=== PATIENT | male | born 1980 | race Caucasian/White ===

== ENCOUNTER 2020-03-16 16:30 | Inpatient (IN) | payer MEDICARE, MEDICAID, SELFPAY ==
[2020-03-16 16:40] VITALS: BP 146/96; PULSE 76; RESP 18; TEMP 36.1; O2SAT 98; BMI 33.9
--- NOTE | 2020-03-16 17:02 | PC.NURSE ---
Pt cooperative with climate change risk assessor. Currently resting in room, no complaints at this time. Pt was seen in the community by crisis, is a voluntary bed search.
[2020-03-16] MEDS: Acetaminophen 325 MG TABLET 650 MG PO (17:27)
[2020-03-16 17:40] LABS: Amphetamine Screen Urine Not Detected (Not Detect); Barbiturates, Urine Not Detected (Not Detect); Benzodiazepines Screen Urine Not Detected (Not Detect); Cannabinoid Screen Urine Not Detected (Not Detect); Cocaine Screen Urine Not Detected (Not Detect); Opiate Screen Urine Not Detected (Not Detect); Phencyclidine Screen Urine Not Detected (Not Detect)
--- NOTE | 2020-03-16 18:27 | PC.NURSE ---
Pt resting in bed at this time. No complaints at this time. Continues to be a voluntary bed search.
[2020-03-16 20:14] LABS: MANUAL DIFF FLAG NO
[2020-03-16 20:16] LABS: Basophils Percent Auto 0.5 % (0-2); Eosinophils Absolute Auto 0.2 X10*3/uL (0.0-0.4); Eosinophils Percent Auto 3.1 % (0-4); Hematocrit 45.6 % (42-52); Hemoglobin 15.5 g/dl (14.0-18.0); Imm Gran Abs Auto 0.02 X10*3/uL (0.00-0.03); Imm Gran Pct Auto 0.3 % (0.0-0.4); Lymphocytes Absolute Auto 1.3 X10*3/uL (1.2-4.9); Lymphocytes Percent Auto 19.4 % (20-40); Mean Corpuscular Hemoglobin 31.6 pg (27.0-33.0); Mean Corpuscular Volume 92.9 fL (80-98); Mean Platelet Volume 9.5 fL (9.4-12.4); Monocytes Absolute Auto 0.5 X10*3/uL (0.1-1.2); Monocytes Percent Auto 7.5 % (2-11); Neutrophils Absolute Auto 4.5 X10*3/uL (2.0-8.3); Neutrophils Percent Auto 69.2 % (45-73); Platelet Count 182 X10*3/uL (160-400); Red Blood Count 4.91 X10*6/uL (4.60-5.80); Red Cell Distribution Width 13.8 % (11.0-16.0); White Blood Count 6.4 X10*3/uL (4.8-10.8)
[2020-03-16 20:34] LABS: Ethanol < 10 mg/dL
[2020-03-16 20:37] LABS: Alanine Aminotransferase 144 U/L (0-40); Albumin Level 4.5 g/dL (3.5-5.0); Alkaline Phosphatase 100 U/L (39-117); Anion Gap 13 (12-20); Aspartate Amino Transferase 124 U/L (5-37); Bilirubin Direct 0.3 mg/dL (0.0-0.5); Bilirubin Total 0.6 mg/dL (0.0-1.0); Blood Urea Nitrogen 14 mg/dL (9-16); Calcium 9.3 mg/dL (8.4-10.2); Carbon Dioxide 28 mmol/L (22-29); Chloride 103 mmol/L (96-108); Creatinine Clr Calc Pharmacy 102.5; Estimated Glomerular Filt Rate > 60; Glucose Random 98 mg/dL (60-115); Potassium 4.2 mmol/l (3.3-5.1); Sodium 140 mmol/L (135-145); Total Protein 7.1 g/dL (6.5-8.0)
--- NOTE | 2020-03-16 20:49 | PC.NURSE ---
Currently asleep. No signs of distress. Respirations nonlabored. Continues to be an inpatient bed search.
[2020-03-16] MEDS: clonazePAM 1 MG TABLET PO (21:39)
[2020-03-16] MEDS: busPIRone HCl 10 MG TABLET PO (21:39)
[2020-03-16] MEDS: lamoTRIgine 100 MG TABLET 200 MG PO (21:39)
[2020-03-16] MEDS: OLANZapine 10 MG TABLET PO (21:40)
[2020-03-16 21:44] VITALS: BP 127/77; PULSE 59
[2020-03-16] MEDS: cloNIDine HCL 0.1 MG TABLET PO (21:44)
--- NOTE | 2020-03-16 22:07 | ED.PSYCH ---
HPI - Psych General Chief Complaint: Psychiatric Symptoms Stated Complaint: crisis Time Seen by Provider: 03/16/20 17:37 Source: patient Mode of arrival: ambulatory Limitations: no limitations History of Present Illness HPI Narrative: Patient is a voluntary admission to the psych unit for suicidal thoughts. Patient admits to suicidal thoughts. Patient was evaluated in the community by [facility]. Patient sent to the ED for medical clearance. Patient denies any auditory / visual hallucinations. MD complaint: suicidal ideation Related Data Home Medications Medication Instructions Recorded Confirmed buspirone [BuSpar] 10 mg PO BID 03/16/20 03/16/20 clonazepam [Klonopin] 1 mg PO BID 03/16/20 03/16/20 clonidine HCl 0.1 mg PO BEDTIME 03/16/20 03/16/20 fluoxetine 60 mg PO QAM 03/16/20 03/16/20 lamotrigine [Lamictal] 200 mg PO BID 03/16/20 03/16/20 nebivolol [Bystolic] 5 mg PO DAILY 03/16/20 03/16/20 nebivolol [Bystolic] 10 mg PO DAILY 03/16/20 03/16/20 olanzapine 5 mg PO DAILY 03/16/20 03/16/20 olanzapine 10 mg PO BEDTIME 03/16/20 03/16/20 Allergies Allergy/AdvReac Type Severity Reaction Status Date / Time mirtazapine [MIRTAZAPINE] Allergy Intermediate UNKNOWN Verified 03/16/20 17:26 sulfamethoxazole Allergy Unknown RASH Verified 03/16/20 17:26 [From BACTRIM] trimethoprim [From BACTRIM] Allergy Unknown RASH Verified 03/16/20 17:26 Review of Systems Review of Systems: Patient admits to suicidal ideation. Patient denies any physical complaints. [facility] Past Medical History Medical History (Updated 03/16/20 @ 22:11 by ISHA Mays) HTN (hypertension) Tachycardia Social History Social History Alcohol intake: unknown Smoking Status: Unknown if ever smoked Use of substances other than those prescribed or required for medical reasons: Unknown Advance Directives: No Advance Directives Information Provided: No Physical Exam Vital Signs: Vital Signs: Vital Signs Temp Pulse Resp BP Pulse Ox 03/16/20 21:44 59 127/77 03/16/20 16:40 97.0 F 76 18 146/96 H 98 Body Mass Index 33.9 Const: General: cooperative, healthy appearing, comfortable, no acute distress and well developed Orientation/consciousness: oriented to person, oriented to place, oriented to time and patient oriented x3 HENMT: Head: Yes normal to inspection Eyes: General: appearance normal, both eyes and all related structures Neck: Neck: Yes normal visual inspection Chest: Chest palpation & inspection: normal inspection of the chest and normal palpation of entire chest wall Resp: Effort & Inspection: normal respiratory effort and able to speak in complete sentences Auscultation: clear to auscultation bilaterally Cardio: Jugular venous distension: no JVD Heart sounds: S1 normal heart sound present and S2 normal heart sound present GI: Inspection: Yes normal to inspection and No abdominal wall ecchymosis Palpation (GI): Soft to palpation, not firm, nontender, no guarding, not rigid and hepatosplenomegaly present Percussion: Yes normal to percussion Auscultation: normal bowel sounds : General: No CVA tenderness and Yes no CVA tenderness Back/Spine/Pelvis: Back: no CVA tenderness, No CVA tenderness and No back tenderness Skin: General skin exam: no rashes or lesions noted Neuro: General: oriented to person, oriented to place, oriented to time, patient oriented x3, gait normal and CN's II-XI intact bilaterally Cranial nerves: Yes CN's II-XII intact bilaterally Extrem: General: Yes normal to inspection Psych: Appearance: grossly normal, well kempt and not disheveled Mental Status: mental status grossly normal Speech and movement: Normal speech and movement present Affect: normal affect Attitude: cooperative Thought content: Suicidality present Course Course Course Narrative: Patient has a bed search for suicidal ideation. Patient will have basic labs drawn Reevaluation(s) Reevaluation #1: patient will be admitted Time: 10:10 MDM - Psych MDM Narrative Medical decision making narrative: Depression Restraints Face to Face Assessment: Face to Face Assessment: Current Situation: After assessment of the patient, a review of the pertinent medical record and a discussion with nursing staff, I feel the patient requires a restrain intervention. Reaction To: [] Medical Condition: [] Behavioral State: [] Continued Need: [] Lab Data Result diagrams: 03/16/20 20:05 03/16/20 20:05 Labs: Lab Results 10/19/20 10/19/20 10/19/20 Range/Units 16:54 20:05 20:05 WBC 6.4 (4.8-10.8) X10*3/uL RBC 4.91 (4.60-5.80) X10*6/uL Hgb 15.5 (14.0-18.0) g/dl Hct 45.6 (42-52) % MCV 92.9 (80-98) fL MCH 31.6 (27.0-33.0) pg MCHC 34.0 (31.0-36.0) g/dl RDW 13.8 (11.0-16.0) % Plt Count 182 (160-400) X10*3/uL MPV 9.5 (9.4-12.4) fL Immature Gran % (Auto) 0.3 (0.0-0.4) % Neut % (Auto) 69.2 (45-73) % Lymph % (Auto) 19.4 L (20-40) % Calhoun % (Auto) 7.5 (2-11) % Eos % (Auto) 3.1 (0-4) % Baso % (Auto) 0.5 (0-2) % Lymph # (Auto) 1.3 (1.2-4.9) X10*3/uL Calhoun # (Auto) 0.5 (0.1-1.2) X10*3/uL Eos # (Auto) 0.2 (0.0-0.4) X10*3/uL Baso # (Auto) 0.0 (0.0-0.2) X10*3/uL Abs Immat Gran (auto) 0.02 (0.00-0.03) X10*3/uL Absolute Neuts (auto) 4.5 (2.0-8.3) X10*3/uL Absolute Nucleated RBC 0.000 (0.0-0.012) X10*3/uL Nucleated RBC % (auto) 0.0 (0.0-0.2) /100WBC Sodium 140 (135-145) mmol/L Potassium 4.2 (3.3-5.1) mmol/l Chloride 103 (96-108) mmol/L Carbon Dioxide 28 (22-29) mmol/L Anion Gap 13 (12-20) BUN 14 (9-16) mg/dL Creatinine 1.27 (0.5-1.4) mg/dL Estim Creat Clear Calc 102.5 Estimated GFR > 60 Random Glucose 98 (60-115) mg/dL Calcium 9.3 (8.4-10.2) mg/dL Total Bilirubin 0.6 (0.0-1.0) mg/dL Direct Bilirubin 0.3 (0.0-0.5) mg/dL AST 124 H (5-37) U/L ALT 144 H (0-40) U/L Alkaline Phosphatase 100 (39-117) U/L Total Protein 7.1 (6.5-8.0) g/dL Albumin 4.5 (3.5-5.0) g/dL Urine Opiates Screen Not Detected (Not Detect) Ur Barbiturates Screen Not Detected (Not Detect) Ur Phencyclidine Scrn Not Detected (Not Detect) Ur Amphetamines Screen Not Detected (Not Detect) U Benzodiazepines Scrn Not Detected (Not Detect) Urine Cocaine Screen Not Detected (Not Detect) U Marijuana (THC) Screen Not Detected (Not Detect) Ethyl Alcohol mg/dL 03/16/20 Range/Units 20:05 WBC (4.8-10.8) X10*3/uL RBC (4.60-5.80) X10*6/uL Hgb (14.0-18.0) g/dl Hct (42-52) % MCV (80-98) fL MCH (27.0-33.0) pg MCHC (31.0-36.0) g/dl RDW (11.0-16.0) % Plt Count (160-400) X10*3/uL MPV (9.4-12.4) fL Immature Gran % (Auto) (0.0-0.4) % Neut % (Auto) (45-73) % Lymph % (Auto) (20-40) % Calhoun % (Auto) (2-11) % Eos % (Auto) (0-4) % Baso % (Auto) (0-2) % Lymph # (Auto) (1.2-4.9) X10*3/uL Calhoun # (Auto) (0.1-1.2) X10*3/uL Eos # (Auto) (0.0-0.4) X10*3/uL Baso # (Auto) (0.0-0.2) X10*3/uL Abs Immat Gran (auto) (0.00-0.03) X10*3/uL Absolute Neuts (auto) (2.0-8.3) X10*3/uL Absolute Nucleated RBC (0.0-0.012) X10*3/uL Nucleated RBC % (auto) (0.0-0.2) /100WBC Sodium (135-145) mmol/L Potassium (3.3-5.1) mmol/l Chloride (96-108) mmol/L Carbon Dioxide (22-29) mmol/L Anion Gap (12-20) BUN (9-16) mg/dL Creatinine (0.5-1.4) mg/dL Estim Creat Clear Calc Estimated GFR Random Glucose (60-115) mg/dL Calcium (8.4-10.2) mg/dL Total Bilirubin (0.0-1.0) mg/dL Direct Bilirubin (0.0-0.5) mg/dL AST (5-37) U/L ALT (0-40) U/L Alkaline Phosphatase (39-117) U/L Total Protein (6.5-8.0) g/dL Albumin (3.5-5.0) g/dL Urine Opiates Screen (Not Detect) Ur Barbiturates Screen (Not Detect) Ur Phencyclidine Scrn (Not Detect) Ur Amphetamines Screen (Not Detect) U Benzodiazepines Scrn (Not Detect) Urine Cocaine Screen (Not Detect) U Marijuana (THC) Screen (Not Detect) Ethyl Alcohol < 10 mg/dL Discharge Plan Discharge Clinical Impression: Depression Prescriptions: No Action clonidine HCl 0.1 mg Tablet 0.1 mg PO BEDTIME RF: 0 lamotrigine [Lamictal] 200 mg Tablet 200 mg PO BID RF: 0 olanzapine 5 mg Tablet 5 mg PO DAILY RF: 0 clonazepam [Klonopin] 1 mg Tablet 1 mg PO BID RF: 0 olanzapine 10 mg Tablet 10 mg PO BEDTIME RF: 0 buspirone [BuSpar] 10 mg Tablet 10 mg PO BID RF: 0 Bystolic 5 mg Tablet 5 mg PO DAILY RF: 0 Bystolic 10 mg Tablet 10 mg PO DAILY RF: 0 fluoxetine 60 mg Tablet 60 mg PO QAM RF: 0
--- NOTE | 2020-03-16 22:09 | PC.NURSE ---
Patient compliant with his HS PO medication, refused to take his prozac by saying he took it in the morning and take his dose in the morning only. Patient calm and pleasant. Mostly isolate in his room, able to express need well, Denied distress. VSS. Will provide safety, maintain safety check as ordered, and monitor the patient.
[2020-03-17 05:42] VITALS: BP 141/94; PULSE 60; RESP 18; TEMP 36.7; O2SAT 98
--- NOTE | 2020-03-17 07:10 | PC.NURSE ---
Pt alert, eating breakfast. pt reports he is 'hanging in there,' affect depressed. Pt reports he normally uses CPAP- pt states that someone can bring from home when admitted inpatient.
[2020-03-17] MEDS: clonazePAM 1 MG TABLET PO ×2 (08:16→20:06)
[2020-03-17] MEDS: OLANZapine 5 MG TABLET PO (08:16)
[2020-03-17] MEDS: lamoTRIgine 100 MG TABLET 200 MG PO ×2 (08:17→20:06)
[2020-03-17] MEDS: busPIRone HCl 10 MG TABLET PO ×2 (08:17→20:06)
[2020-03-17] MEDS: FLUoxetine HCl 20 MG CAPSULE 60 MG PO (08:18)
[2020-03-17 10:22] VITALS: BP 135/85; PULSE 68; RESP 16; TEMP 37; O2SAT 97
[2020-03-17 16:07] VITALS: BP 122/75; PULSE 70; RESP 20; TEMP 36.8; O2SAT 96
--- NOTE | 2020-03-17 19:25 | PC.NURSE ---
No disposition change, no update on bed search status, patient had a good day so far per report, hydrating and eating adequately, denied distress, will continue to monitor.
[2020-03-17 19:29] VITALS: BP 118/78; PULSE 76; RESP 20; TEMP 36.4; O2SAT 96
[2020-03-17] MEDS: OLANZapine 10 MG TABLET PO (20:05)
[2020-03-17 20:06] VITALS: BP 118/78; PULSE 76
[2020-03-17] MEDS: cloNIDine HCL 0.1 MG TABLET PO (20:06)
[2020-03-17 23:35] VITALS: BP 112/58; PULSE 63; RESP 17; TEMP 36.3; O2SAT 95
[2020-03-18 06:28] VITALS: BP 130/70; PULSE 76; RESP 18; TEMP 36.4; O2SAT 98
--- NOTE | 2020-03-18 06:54 | PC.NURSE ---
Report recieved. Pt currently eating breakfast, calm and cooperative. PT denies complaints. Pt is inpatient bedsearch.
[2020-03-18] MEDS: lamoTRIgine 100 MG TABLET 200 MG PO ×2 (09:05→20:47)
[2020-03-18] MEDS: FLUoxetine HCl 20 MG CAPSULE 60 MG PO (09:05)
[2020-03-18] MEDS: OLANZapine 5 MG TABLET PO (09:05)
[2020-03-18] MEDS: clonazePAM 1 MG TABLET PO ×2 (09:05→20:47)
[2020-03-18] MEDS: busPIRone HCl 10 MG TABLET PO ×2 (09:06→20:48)
[2020-03-18 09:11] VITALS: BP 123/77; PULSE 66; RESP 18; TEMP 36.8; O2SAT 97
--- NOTE | 2020-03-18 10:26 | PC.NURSE ---
Per HOANG pt accepted to [facility] pending a negative covid
[2020-03-18 11:35] LABS: SARS COV2 PCR INHOUSE NEGATIVE (Negative)
--- NOTE | 2020-03-18 12:11 | PC.NURSE ---
Nurse to nurse completed with Shanta MARTINEZ from [facility] shanta wong to call back with time for pt to be transferred, bret results faxed
--- NOTE | 2020-03-18 14:49 | PC.NURSE ---
Pt accepted to [facility] for later today, PT aware of change. Pt denies complaints, calm and cooperative.
--- NOTE | 2020-03-18 15:28 | PC.NURSE ---
Pt at baseline, resting quietly in bed, awaiting transfer to .
--- NOTE | 2020-03-18 15:45 | PC.NURSE ---
nurse to nurse completed with janet from [facility].
--- NOTE | 2020-03-18 16:06 | PC.NURSE ---
Pt transferred to by CARE team and security.
--- NOTE | 2020-03-18 16:15 | MHC.CARE ---
CARE team met with this patient in [facility] pod to facilitate transfer/admission to . Patient is being admitted voluntarily and signed CV. Patient has home meds that were verified by pharmacy and given to med nurse.
[2020-03-18 18:00] VITALS: BP 146/79; PULSE 73; RESP 18; TEMP 36.7; O2SAT 97
--- NOTE | 2020-03-18 20:21 | PC.ADMIT ---
this is one of several [facility] admissions for this 39 year old male. legal cv. cooperative to assessment. referred to [facility] by [facility]. collateral information reviewed with patient from n assessment. reports since being in the er he no longer feels suicidal but reports continued feelings of depression and feels that Prozac is no longer helping. + provider relationship does not use street drugs does report alcoholing on a regular basis but stopped drinking ''7 days ago'' denies any w/d s/s. hx hypertension, sleep apnea. has machine with him. will require equipment obs at hs and pt aware.
[2020-03-18 20:48] VITALS: BP 133/82; PULSE 61
[2020-03-18] MEDS: OLANZapine 10 MG TABLET PO (20:48)
[2020-03-18] MEDS: cloNIDine HCL 0.1 MG TABLET PO (20:48)
[2020-03-19 06:20] VITALS: BP 114/64; PULSE 57; RESP 18; TEMP 36.4
[2020-03-19 07:00] VITALS: BMI 34.6
[2020-03-19 08:36] LABS: Alanine Aminotransferase 171 U/L (0-40); Albumin Level 4.8 g/dL (3.5-5.0); Alkaline Phosphatase 100 U/L (39-117); Anion Gap 14 (12-20); Aspartate Amino Transferase 131 U/L (5-37); Bilirubin Total 0.6 mg/dL (0.0-1.0); Blood Urea Nitrogen 13 mg/dL (9-16); Calcium 9.6 mg/dL (8.4-10.2); Carbon Dioxide 29 mmol/L (22-29); Chloride 102 mmol/L (96-108); Cholesterol 266 mg/dL; Creatinine Clr Calc Pharmacy 116.2; Estimated Glomerular Filt Rate > 60; Glucose Fasting 91 mg/dL (60-99); HDL Cholesterol 44 mg/dL; LDL Cholesterol Calculated 189 mg/dl; Potassium 4.7 mmol/l (3.3-5.1); Sodium 140 mmol/L (135-145); Total Protein 7.4 g/dL (6.5-8.0); Triglycerides 165 mg/dL
[2020-03-19 08:45] LABS: Estimated Average Glucose 91 mg/dL; Hemoglobin A1c % 4.8 %
[2020-03-19 08:56] LABS: Free T4 (Free Thyroxine) 1.08 ng/dL (0.71-1.85); Thyroid Stimulating Hormone 2.03 mIU/mL (0.32-4.0)
[2020-03-19] MEDS: OLANZapine 5 MG TABLET PO (08:56)
[2020-03-19] MEDS: FLUoxetine HCl 20 MG CAPSULE 60 MG PO (08:57)
[2020-03-19] MEDS: busPIRone HCl 10 MG TABLET PO ×2 (08:57→20:59)
[2020-03-19] MEDS: lamoTRIgine 100 MG TABLET 200 MG PO ×2 (08:57→20:59)
[2020-03-19] MEDS: clonazePAM 1 MG TABLET PO ×2 (08:57→20:57)
[2020-03-19 18:00] VITALS: BP 143/93; PULSE 64; TEMP 36.6
--- NOTE | 2020-03-19 19:33 | HO.PSYADMNOT ---
HPI Chief Complaint: depression Sources of Information: patient interviewed, chart reviewed and crisis/core team assessment reviewed HPI Narrative: 39 year old man who was admitted to after being referred by [facility] due to an increase in depression and thoughts of self harm. He was evaluated in his home and then medically cleared in the ER. Tahir has been having increased thoughts of self harm, feeling hopeless, helpless and without motivation. He was struggling with anger and irritability. He wished he were . He reports that he had relapsed with alcohol after a more sustained sobriety. He had also had a decrease in zyprexa dose. Other precipitants include that he is thinking about the anniversary of his father's . His mother has some medical issues. Past Psychiatric History: Hospital stays: Last admission to 2013. He had ECT at that time Therapist is Ana Lilia Mcfarlane [facility] Psychiatrist is Damon Velazquez [facility] Medical Evaluation Reviewed: Yes Medically cleared for admission. No acute problems [facility] Medical History HTN (hypertension) Tachycardia Family History: Father committed suicide Social History: Lives with his mother. No children. On disability Substance History: Alcohol - last use one week ago Trauma History: Father's suicide Diagnostics Vital Signs (24Hr): Vital Signs - 24 hr 03/18/20 20:48 03/19/20 06:20 03/19/20 18:00 Temperature 97.6 F 97.9 F Pulse Rate 61 57 64 Respiratory Rate 18 Blood Pressure 133/82 114/64 143/93 H Body Mass Index 34.6 Labs Results: 03/16/20 20:05 03/19/20 07:29 Labs: Laboratory Results - last 48 hr 03/18/20 03/19/20 03/19/20 10:21 07:29 07:29 Sodium 140 Potassium 4.7 Chloride 102 Carbon Dioxide 29 Anion Gap 14 BUN 13 Creatinine 1.12 Estim Creat Clear Calc 116.2 Estimated GFR > 60 Fasting Glucose 91 Estimat Average Glucose 91 Hemoglobin A1c % 4.8 Calcium 9.6 Total Bilirubin 0.6 AST 131 H ALT 171 H Alkaline Phosphatase 100 Total Protein 7.4 Albumin 4.8 Triglycerides 165 Cholesterol 266 LDL Cholesterol, Calc 189 HDL Cholesterol 44 TSH 2.03 Free T4 1.08 Coronavirus (PCR) NEGATIVE Meds/Allergies Meds Home Medications Medication Instructions Recorded Confirmed Type buspirone [BuSpar] 10 mg PO BID 03/16/20 03/16/20 History clonazepam [Klonopin] 1 mg PO BID 03/16/20 03/16/20 History clonidine HCl 0.1 mg PO BEDTIME 03/16/20 03/16/20 History fluoxetine 60 mg PO QAM 03/16/20 03/16/20 History lamotrigine [Lamictal] 200 mg PO BID 03/16/20 03/16/20 History nebivolol [Bystolic] 5 mg PO DAILY 03/16/20 03/16/20 History nebivolol [Bystolic] 10 mg PO DAILY 03/16/20 03/16/20 History olanzapine 5 mg PO DAILY 03/16/20 03/16/20 History olanzapine 10 mg PO BEDTIME 03/16/20 03/16/20 History Allergies Allergies Allergy/AdvReac Type Severity Reaction Status Date / Time mirtazapine [MIRTAZAPINE] Allergy Intermediate UNKNOWN Verified 03/16/20 17:26 sulfamethoxazole Allergy Unknown RASH Verified 03/16/20 17:26 [From BACTRIM] trimethoprim [From BACTRIM] Allergy Unknown RASH Verified 03/16/20 17:26 Mental Status Exam Mental Status Exam Patient Appearance: Well Grooomed Patient Orientation: Person Level of Consciousness: Awake and Alert Patient Behavior: Appropriate, Cooperative and Good Eye Contact Mood Description: Calm, Sad and Nervous Affect Description: Fearful, Anxious, Sad and Nervous Patient Cognition Impaired: No Ability to Follow Directions: Fair Speech Pattern: Clear, Appropriate, Monotone and Soft-Spoken Memory Description: Intact Hallucinations: None Delusions: Not Present Thought Process: Intact Thought Content: positive for Obsessional Thoughts, positive for Circumstantial, positive for Perseveration and positive for Preoccupation Depressive Symptoms: Increased Anxiety, Insomnia, Diff. Making Decisions, Increased Irritability, Loss of Int. in Activity, Feelings of Worthlessness, Feelings of Guilt, Thoughts of /Suicide and Low Self Esteem Judgement: Fair Assessment & Plan Assessment & Plan (1) Alcohol use disorder, severe, in early remission: Status: Acute Code(s): F10.21 - Alcohol dependence, in remission (2) Bipolar 1 disorder, depressed, severe: Status: Acute Code(s): F31.4 - Bipolar disorder, current episode depressed, severe, without psychotic features (3) Obsessive compulsive disorder: Status: Acute Qualifiers: Obsessive-compulsive disorder type: mixed obsessional thoughts and acts Qualified Code(s): F42.2 - Mixed obsessional thoughts and acts Code(s): F42.9 - Obsessive-compulsive disorder, unspecified Assessment and Plan: CV 15 minute checks Psych/dual groups Increase zyprexa increase fluoxetine Education regarding sobriety Collect collateral history ELS 7 days Patient educated on: diagnosis, medication risk/benefits and substance abuse Informed Consent: further education needed Reason for continued inpatient stay Substantial Risk for: harm to self, inability to function and rapid decompensation
[2020-03-19] MEDS: OLANZapine 10 MG TABLET 15 MG PO (20:57)
[2020-03-19 20:59] VITALS: BP 143/93; PULSE 64
[2020-03-19] MEDS: cloNIDine HCL 0.1 MG TABLET PO (20:59)
[2020-03-20 06:18] VITALS: BP 117/62; PULSE 63; RESP 16; TEMP 36.2; O2SAT 97
[2020-03-20] MEDS: FLUoxetine HCl 20 MG CAPSULE 80 MG PO (08:36)
[2020-03-20] MEDS: clonazePAM 1 MG TABLET PO ×2 (08:37→20:28)
[2020-03-20] MEDS: lamoTRIgine 100 MG TABLET 200 MG PO ×2 (08:37→20:29)
[2020-03-20] MEDS: busPIRone HCl 10 MG TABLET PO ×2 (08:38→20:28)
[2020-03-20] MEDS: OLANZapine 5 MG TABLET PO (08:38)
--- NOTE | 2020-03-20 14:36 | HO.PSYCHPN ---
Subjective Subjective Date of Service: 03/20/20 Reason For Visit: depression Subjective Notes: Conditional Voluntary Interim History: Tahir reports that he feels much better with the change in medication. He has no SI He is enjoying interacting with his peers. He denies cravings Medication Compliance: Yes Side effects from medications: No Attending Groups: Yes Review of Systems Acute medical concerns: No Medical Review of Systems: unchanged Mental Status Exam Mental Status Exam Patient Appearance: Well Grooomed Patient Orientation: Person Level of Consciousness: Awake and Alert Patient Behavior: Appropriate, Cooperative and Good Eye Contact Mood Description: Calm and Sad Affect Description: Sad Patient Cognition Impaired: No Ability to Follow Directions: Fair Speech Pattern: Clear, Appropriate, Monotone and Soft-Spoken Memory Description: Intact Hallucinations: None Delusions: Not Present Thought Process: Intact Thought Content: positive for Obsessional Thoughts, positive for Circumstantial, positive for Perseveration, positive for Preoccupation, negative for Suicidal Ideation and negative for Homicidal Ideation Depressive Symptoms: Increased Anxiety, Insomnia, Diff. Making Decisions, Increased Irritability and Loss of Int. in Activity Judgement: Fair Diagnostics Vital Signs (24Hr): Vital Signs - 24 hr 03/19/20 18:00 03/19/20 20:59 03/20/20 06:18 Temperature 97.9 F 97.2 F Pulse Rate 64 64 63 Respiratory Rate 16 Blood Pressure 143/93 H 143/93 H 117/62 Pulse Oximetry 97 Body Mass Index 34.6 Labs Results: 03/16/20 20:05 03/19/20 07:29 Labs: Laboratory Results - last 48 hr 03/19/20 03/19/20 07:29 07:29 Sodium 140 Potassium 4.7 Chloride 102 Carbon Dioxide 29 Anion Gap 14 BUN 13 Creatinine 1.12 Estim Creat Clear Calc 116.2 Estimated GFR > 60 Fasting Glucose 91 Estimat Average Glucose 91 Hemoglobin A1c % 4.8 Calcium 9.6 Total Bilirubin 0.6 AST 131 H ALT 171 H Alkaline Phosphatase 100 Total Protein 7.4 Albumin 4.8 Triglycerides 165 Cholesterol 266 LDL Cholesterol, Calc 189 HDL Cholesterol 44 TSH 2.03 Free T4 1.08 Medications Medications Current Medications Generic Name Dose Route Start Last Admin Trade Name Freq PRN Reason Stop Dose Admin Acetaminophen 650 mg 03/18/20 19:11 Acetaminophen 325 Mg Tablet PO Q6H PRN Headache/Pain Mild Scale (1-3) Al Hydroxide/Mg Hydroxide 30 ml 03/18/20 19:11 Magnesium Hydrox/Alum Hydrox 30 Ml Oral.Susp PO Q6H PRN Heartburn/Nausea Buspirone HCl 10 mg 03/16/20 21:15 03/20/20 08:38 Buspirone Hcl 10 Mg Tablet PO 10 mg BID MARTINEZ Administration Clonazepam 1 mg 03/16/20 21:15 03/20/20 08:37 Clonazepam 1 Mg Tablet PO 1 mg BID MARTINEZ Administration Clonidine HCl 0.1 mg 03/16/20 21:15 03/19/20 20:59 Clonidine Hcl 0.1 Mg Tablet PO 0.1 mg BEDTIME MARTINEZ Administration Protocol Fluoxetine HCl 80 mg 03/20/20 09:00 03/20/20 08:36 Fluoxetine Hcl 20 Mg Capsule PO 80 mg DAILY MARTINEZ Administration Hydroxyzine HCl 25 mg 03/18/20 19:11 Hydroxyzine Hcl 25 Mg Tablet PO BEDTIME PRN Anxiety Lamotrigine 200 mg 03/17/20 09:00 03/20/20 08:37 Lamotrigine 100 Mg Tablet PO 200 mg BID MARTINEZ Administration Magnesium Hydroxide 30 ml 03/18/20 19:11 Milk Of Magnesia 30 Ml Oral.Susp PO DAILY PRN Constipation Nicotine Polacrilex 4 mg 03/18/20 20:19 03/20/20 08:40 Nicotine Polacrilex 4 Mg Lozenge BUCCAL 4 mg Q2H PRN Administration Nicotine Cravings Non-Formulary Medication 15 mg 03/20/20 09:00 03/20/20 08:35 Nebivolol [Bystolic] PO 15 mg DAILY MARTINEZ Administration Olanzapine 5 mg 03/17/20 09:00 03/20/20 08:38 Olanzapine 5 Mg Tablet PO 5 mg DAILY MARTINEZ Administration Olanzapine 15 mg 03/19/20 21:00 03/19/20 20:57 Olanzapine 10 Mg Tablet PO 15 mg BEDTIME MARTINEZ Administration Trazodone HCl 50 mg 03/18/20 19:11 Trazodone Hcl 50 Mg Tablet PO BEDTIME PRN Insomnia Allergies Allergies Allergy/AdvReac Type Severity Reaction Status Date / Time mirtazapine [MIRTAZAPINE] Allergy Intermediate UNKNOWN Verified 03/16/20 17:26 sulfamethoxazole Allergy Unknown RASH Verified 03/16/20 17:26 [From BACTRIM] trimethoprim [From BACTRIM] Allergy Unknown RASH Verified 03/16/20 17:26 Assessment & Plan Assessment & Plan (1) Bipolar 1 disorder, depressed, severe: Status: Acute Code(s): F31.4 - Bipolar disorder, current episode depressed, severe, without psychotic features (2) Obsessive compulsive disorder: Qualifiers: Obsessive-compulsive disorder type: mixed obsessional thoughts and acts Qualified Code(s): F42.2 - Mixed obsessional thoughts and acts Status: Acute Code(s): F42.9 - Obsessive-compulsive disorder, unspecified (3) Alcohol use disorder, severe, in early remission: Status: Acute Code(s): F10.21 - Alcohol dependence, in remission Assessment and Plan: CT current treatment plan without change Greater than 50% of the session was spent on counseling and/or coordination of care Patient educated on: diagnosis, medication risk/benefits and substance abuse Informed Consent: further education needed Reason for contiued inpatient stay Substantial Risk for: inability to function and rapid decompensation
[2020-03-20 18:00] VITALS: BP 120/73; PULSE 61; TEMP 36.4
[2020-03-20] MEDS: OLANZapine 10 MG TABLET 15 MG PO (20:28)
[2020-03-20 20:30] VITALS: BP 120/73; PULSE 61
[2020-03-20] MEDS: cloNIDine HCL 0.1 MG TABLET PO (20:30)
[2020-03-21] MEDS: clonazePAM 1 MG TABLET PO ×2 (08:48→20:26)
[2020-03-21] MEDS: OLANZapine 5 MG TABLET PO (08:48)
[2020-03-21] MEDS: FLUoxetine HCl 20 MG CAPSULE 80 MG PO (08:48)
[2020-03-21] MEDS: lamoTRIgine 100 MG TABLET 200 MG PO ×2 (08:48→20:27)
[2020-03-21] MEDS: busPIRone HCl 10 MG TABLET PO ×2 (08:49→20:28)
[2020-03-21 18:00] VITALS: BP 139/88; PULSE 66; TEMP 36.6
[2020-03-21 20:26] VITALS: BP 139/88; PULSE 66
[2020-03-21] MEDS: cloNIDine HCL 0.1 MG TABLET PO (20:26)
[2020-03-21] MEDS: OLANZapine 10 MG TABLET 15 MG PO (20:28)
--- NOTE | 2020-03-21 21:38 | HO.PSYCHPN ---
Subjective Subjective Reason For Visit: depression Subjective Notes: Conditional Voluntary Interim History: Tahir reports that he feels much better with the change in medication. Denies SI. Denies cravings Medication Compliance: Yes Side effects from medications: No Attending Groups: Yes Review of Systems Acute medical concerns: No Medical Review of Systems: unchanged Review of Systems Review of Systems Patient denies suicidal ideation. Patient denies any physical complaints. Mental Status Exam Mental Status Exam Patient Appearance: Well Grooomed Patient Orientation: Person Level of Consciousness: Awake and Alert Patient Behavior: Appropriate, Cooperative and Good Eye Contact Mood Description: Calm and Sad Affect Description: Sad Patient Cognition Impaired: No Ability to Follow Directions: Fair Speech Pattern: Clear, Appropriate, Monotone and Soft-Spoken Memory Description: Intact Hallucinations: None Delusions: Not Present Thought Process: Intact Thought Content: positive for Obsessional Thoughts, positive for Circumstantial, positive for Perseveration, positive for Preoccupation, negative for Suicidal Ideation and negative for Homicidal Ideation Depressive Symptoms: Increased Anxiety, Insomnia, Diff. Making Decisions, Increased Irritability and Loss of Int. in Activity Judgement: Fair Diagnostics Vital Signs (24Hr): Vital Signs - 24 hr 03/21/20 18:00 03/21/20 20:26 Temperature 97.9 F Pulse Rate 66 66 Blood Pressure 139/88 139/88 Body Mass Index 34.6 Labs Results: 03/16/20 20:05 03/19/20 07:29 Medications Medications Current Medications Generic Name Dose Route Start Last Admin Trade Name Freq PRN Reason Stop Dose Admin Acetaminophen 650 mg 03/18/20 19:11 Acetaminophen 325 Mg Tablet PO Q6H PRN Headache/Pain Mild Scale (1-3) Al Hydroxide/Mg Hydroxide 30 ml 03/18/20 19:11 Magnesium Hydrox/Alum Hydrox 30 Ml Oral.Susp PO Q6H PRN Heartburn/Nausea Buspirone HCl 10 mg 03/16/20 21:15 03/21/20 20:28 Buspirone Hcl 10 Mg Tablet PO 10 mg BID MARTINEZ Administration Clonidine HCl 0.1 mg 03/16/20 21:15 03/21/20 20:26 Clonidine Hcl 0.1 Mg Tablet PO 0.1 mg BEDTIME MARTINEZ Administration Protocol Fluoxetine HCl 80 mg 03/20/20 09:00 03/21/20 08:48 Fluoxetine Hcl 20 Mg Capsule PO 80 mg DAILY MARTINEZ Administration Hydroxyzine HCl 25 mg 03/18/20 19:11 Hydroxyzine Hcl 25 Mg Tablet PO BEDTIME PRN Anxiety Lamotrigine 200 mg 03/17/20 09:00 03/21/20 20:27 Lamotrigine 100 Mg Tablet PO 200 mg BID MARTINEZ Administration Magnesium Hydroxide 30 ml 03/18/20 19:11 Milk Of Magnesia 30 Ml Oral.Susp PO DAILY PRN Constipation Nicotine Polacrilex 4 mg 03/18/20 20:19 03/21/20 13:05 Nicotine Polacrilex 4 Mg Lozenge BUCCAL 4 mg Q2H PRN Administration Nicotine Cravings Non-Formulary Medication 15 mg 03/20/20 09:00 03/21/20 08:47 Nebivolol [Bystolic] PO 15 mg DAILY MARTINEZ Administration Olanzapine 5 mg 03/17/20 09:00 03/21/20 08:48 Olanzapine 5 Mg Tablet PO 5 mg DAILY MARTINEZ Administration Olanzapine 15 mg 03/19/20 21:00 03/21/20 20:28 Olanzapine 10 Mg Tablet PO 15 mg BEDTIME MARTINEZ Administration Trazodone HCl 50 mg 03/18/20 19:11 Trazodone Hcl 50 Mg Tablet PO BEDTIME PRN Insomnia Allergies Allergies Allergy/AdvReac Type Severity Reaction Status Date / Time mirtazapine [MIRTAZAPINE] Allergy Intermediate UNKNOWN Verified 03/16/20 17:26 sulfamethoxazole Allergy Unknown RASH Verified 03/16/20 17:26 [From BACTRIM] trimethoprim [From BACTRIM] Allergy Unknown RASH Verified 03/16/20 17:26 Assessment & Plan Assessment & Plan (1) Bipolar 1 disorder, depressed, severe: Status: Acute Code(s): F31.4 - Bipolar disorder, current episode depressed, severe, without psychotic features (2) Obsessive compulsive disorder: Qualifiers: Obsessive-compulsive disorder type: mixed obsessional thoughts and acts Qualified Code(s): F42.2 - Mixed obsessional thoughts and acts Status: Acute Code(s): F42.9 - Obsessive-compulsive disorder, unspecified (3) Alcohol use disorder, severe, in early remission: Status: Acute Code(s): F10.21 - Alcohol dependence, in remission (4) Depression: Qualifiers: Depression Type: unspecified Qualified Code(s): F32.9 - Major depressive disorder, single episode, unspecified Status: Acute Code(s): F32.9 - Major depressive disorder, single episode, unspecified Assessment and Plan: responding well to current treatment continue with treatment plan Greater than 50% of the session was spent on counseling and/or coordination of care Patient educated on: diagnosis, medication risk/benefits and substance abuse Informed Consent: further education needed Reason for contiued inpatient stay Substantial Risk for: inability to function and rapid decompensation Greater than 50% of the session was spent on counseling and/or coordination of care
[2020-03-22 07:33] VITALS: BP 118/62; PULSE 71; TEMP 35.4
[2020-03-22] MEDS: OLANZapine 5 MG TABLET PO (08:54)
[2020-03-22] MEDS: lamoTRIgine 100 MG TABLET 200 MG PO ×2 (08:54→19:54)
[2020-03-22] MEDS: busPIRone HCl 10 MG TABLET PO ×2 (08:54→19:55)
[2020-03-22] MEDS: FLUoxetine HCl 20 MG CAPSULE 80 MG PO (08:55)
--- NOTE | 2020-03-22 10:56 | P.PNPSI_ITS ---
Subjective Subjective Reason For Visit: depression Subjective Notes: Conditional Voluntary Interim History: patient reporting he is doing well with the change in medication. Denies SI. Denies cravings He reports he would like to be discharged Medication Compliance: Yes Side effects from medications: No Attending Groups: Yes Review of Systems Acute medical concerns: No Medical Review of Systems: unchanged Review of Systems Review of Systems Patient denies suicidal ideation. Patient denies any physical complaints. Mental Status Exam Mental Status Exam Patient Appearance: Well Grooomed Patient Orientation: Person Level of Consciousness: Awake and Alert Patient Behavior: Appropriate, Cooperative and Good Eye Contact Mood Description: Calm and Sad Affect Description: Sad Patient Cognition Impaired: No Ability to Follow Directions: Fair Speech Pattern: Clear, Appropriate, Monotone and Soft-Spoken Memory Description: Intact Hallucinations: None Delusions: Not Present Thought Process: Intact Thought Content: positive for Obsessional Thoughts, positive for Circumstantial, positive for Perseveration, positive for Preoccupation, negative for Suicidal Ideation and negative for Homicidal Ideation Depressive Symptoms: Increased Anxiety, Insomnia, Diff. Making Decisions, Increased Irritability and Loss of Int. in Activity Judgement: Fair Diagnostics Vital Signs (24Hr): Vital Signs - 24 hr 03/21/20 18:00 03/21/20 20:26 03/22/20 07:33 Temperature 97.9 F 95.8 F L Pulse Rate 66 66 71 Blood Pressure 139/88 139/88 118/62 Body Mass Index 34.6 Labs Results: 03/16/20 20:05 03/19/20 07:29 Medications Medications Current Medications Generic Name Dose Route Start Last Admin Trade Name Freq PRN Reason Stop Dose Admin Acetaminophen 650 mg 03/18/20 19:11 Acetaminophen 325 Mg Tablet PO Q6H PRN Headache/Pain Mild Scale (1-3) Al Hydroxide/Mg Hydroxide 30 ml 03/18/20 19:11 Magnesium Hydrox/Alum Hydrox 30 Ml Oral.Susp PO Q6H PRN Heartburn/Nausea Buspirone HCl 10 mg 03/16/20 21:15 03/22/20 08:54 Buspirone Hcl 10 Mg Tablet PO 10 mg BID MARTINEZ Administration Clonidine HCl 0.1 mg 03/16/20 21:15 03/21/20 20:26 Clonidine Hcl 0.1 Mg Tablet PO 0.1 mg BEDTIME MARTINEZ Administration Protocol Fluoxetine HCl 80 mg 03/20/20 09:00 03/22/20 08:55 Fluoxetine Hcl 20 Mg Capsule PO 80 mg DAILY MARTINEZ Administration Hydroxyzine HCl 25 mg 03/18/20 19:11 Hydroxyzine Hcl 25 Mg Tablet PO BEDTIME PRN Anxiety Lamotrigine 200 mg 03/17/20 09:00 03/22/20 08:54 Lamotrigine 100 Mg Tablet PO 200 mg BID MARTINEZ Administration Magnesium Hydroxide 30 ml 03/18/20 19:11 Milk Of Magnesia 30 Ml Oral.Susp PO DAILY PRN Constipation Nicotine Polacrilex 4 mg 03/18/20 20:19 03/22/20 10:00 Nicotine Polacrilex 4 Mg Lozenge BUCCAL 4 mg Q2H PRN Administration Nicotine Cravings Non-Formulary Medication 15 mg 03/20/20 09:00 03/22/20 08:55 Nebivolol [Bystolic] PO 15 mg DAILY MARTINEZ Administration Olanzapine 5 mg 03/17/20 09:00 03/22/20 08:54 Olanzapine 5 Mg Tablet PO 5 mg DAILY MARTINEZ Administration Olanzapine 15 mg 03/19/20 21:00 03/21/20 20:28 Olanzapine 10 Mg Tablet PO 15 mg BEDTIME MARTINEZ Administration Trazodone HCl 50 mg 03/18/20 19:11 Trazodone Hcl 50 Mg Tablet PO BEDTIME PRN Insomnia Allergies Allergies Allergy/AdvReac Type Severity Reaction Status Date / Time mirtazapine [MIRTAZAPINE] Allergy Intermediate UNKNOWN Verified 03/16/20 17:26 sulfamethoxazole Allergy Unknown RASH Verified 03/16/20 17:26 [From BACTRIM] trimethoprim [From BACTRIM] Allergy Unknown RASH Verified 03/16/20 17:26 Assessment & Plan Assessment & Plan (1) Bipolar 1 disorder, depressed, severe: Status: Acute Code(s): F31.4 - Bipolar disorder, current episode depressed, severe, without psychotic features (2) Obsessive compulsive disorder: Qualifiers: Obsessive-compulsive disorder type: mixed obsessional thoughts and acts Qualified Code(s): F42.2 - Mixed obsessional thoughts and acts Status: Acute Code(s): F42.9 - Obsessive-compulsive disorder, unspecified (3) Alcohol use disorder, severe, in early remission: Status: Acute Code(s): F10.21 - Alcohol dependence, in remission (4) Depression: Qualifiers: Depression Type: unspecified Qualified Code(s): F32.9 - Major depressive disorder, single episode, unspecified Status: Acute Code(s): F32.9 - Major depressive disorder, single episode, unspecified Assessment and Plan: Continue current medication without change Greater than 50% of the session was spent on counseling and/or coordination of care Patient educated on: diagnosis, medication risk/benefits and substance abuse Informed Consent: further education needed Reason for continued inpatient stay: Substantial Risk for: inability to function and rapid decompensation Greater than 50% of the session was spent on counseling and/or coordination of c are
[2020-03-22] MEDS: Acetaminophen 325 MG TABLET 650 MG PO ×2 (11:24→19:14)
[2020-03-22 18:00] VITALS: BP 132/78; PULSE 66; TEMP 36.3
[2020-03-22 19:55] VITALS: BP 132/78; PULSE 66
[2020-03-22] MEDS: cloNIDine HCL 0.1 MG TABLET PO (19:55)
[2020-03-22] MEDS: OLANZapine 10 MG TABLET 15 MG PO (19:56)
[2020-03-22] MEDS: clonazePAM 1 MG TABLET PO (20:19)
[2020-03-23 05:40] VITALS: BP 128/74; PULSE 59; RESP 18; TEMP 36.4
[2020-03-23] MEDS: FLUoxetine HCl 20 MG CAPSULE 80 MG PO (08:41)
[2020-03-23] MEDS: clonazePAM 1 MG TABLET PO ×2 (08:42→21:09)
[2020-03-23] MEDS: OLANZapine 5 MG TABLET PO (08:42)
[2020-03-23] MEDS: lamoTRIgine 100 MG TABLET 200 MG PO ×2 (08:42→21:07)
[2020-03-23] MEDS: busPIRone HCl 10 MG TABLET PO ×2 (08:42→21:06)
--- NOTE | 2020-03-23 09:36 | P.PNPSI_ITS ---
Subjective Subjective Date of Service: 03/23/20 Reason For Visit: depression Subjective Notes: Conditional Voluntary Interim History: Patient reporting he is doing well with the change in medication. He is interactive with his peers and he is not ruminating. Denies SI. Denies cravings He reports he would like to be discharged He agreed to DC tomorrow. Medication Compliance: Yes Side effects from medications: No Attending Groups: Yes Review of Systems Acute medical concerns: No Medical Review of Systems: unchanged Mental Status Exam Mental Status Exam Patient Appearance: Well Grooomed Patient Orientation: Person Level of Consciousness: Awake and Alert Patient Behavior: Appropriate, Cooperative and Good Eye Contact Mood Description: Calm and Sad Affect Description: Sad Patient Cognition Impaired: No Ability to Follow Directions: Fair Speech Pattern: Clear, Appropriate, Monotone and Soft-Spoken Memory Description: Intact Hallucinations: None Delusions: Not Present Thought Process: Intact Thought Content: positive for Obsessional Thoughts, positive for Circumstantial, positive for Perseveration, positive for Preoccupation, negative for Suicidal Ideation and negative for Homicidal Ideation Depressive Symptoms: Increased Anxiety, Insomnia, Diff. Making Decisions, Increased Irritability and Loss of Int. in Activity Judgement: Fair Diagnostics Vital Signs (24Hr): Vital Signs - 24 hr 03/22/20 18:00 03/22/20 19:55 03/23/20 05:40 Temperature 97.4 F 97.5 F Pulse Rate 66 66 59 Respiratory Rate 18 Blood Pressure 132/78 132/78 128/74 Body Mass Index 34.6 Labs Results: 03/16/20 20:05 03/19/20 07:29 Medications Medications Current Medications Generic Name Dose Route Start Last Admin Trade Name Angelq PRN Reason Stop Dose Admin Acetaminophen 650 mg 03/18/20 19:11 03/22/20 19:14 Acetaminophen 325 Mg Tablet PO 650 mg Q6H PRN Administration Headache/Pain Mild Scale (1-3) Al Hydroxide/Mg Hydroxide 30 ml 03/18/20 19:11 Magnesium Hydrox/Alum Hydrox 30 Ml Oral.Susp PO Q6H PRN Heartburn/Nausea Buspirone HCl 10 mg 03/16/20 21:15 03/23/20 08:42 Buspirone Hcl 10 Mg Tablet PO 10 mg BID MARTINEZ Administration Clonazepam 1 mg 03/22/20 21:00 03/23/20 08:42 Clonazepam 1 Mg Tablet PO 1 mg BID MARTINEZ Administration Clonidine HCl 0.1 mg 03/16/20 21:15 03/22/20 19:55 Clonidine Hcl 0.1 Mg Tablet PO 0.1 mg BEDTIME MARTINEZ Administration Protocol Fluoxetine HCl 80 mg 03/20/20 09:00 03/23/20 08:41 Fluoxetine Hcl 20 Mg Capsule PO 80 mg DAILY MARTINEZ Administration Hydroxyzine HCl 25 mg 03/18/20 19:11 Hydroxyzine Hcl 25 Mg Tablet PO BEDTIME PRN Anxiety Lamotrigine 200 mg 03/17/20 09:00 03/23/20 08:42 Lamotrigine 100 Mg Tablet PO 200 mg BID MARTINEZ Administration Magnesium Hydroxide 30 ml 03/18/20 19:11 Milk Of Magnesia 30 Ml Oral.Susp PO DAILY PRN Constipation Nicotine Polacrilex 4 mg 03/18/20 20:19 03/22/20 14:00 Nicotine Polacrilex 4 Mg Lozenge BUCCAL 4 mg Q2H PRN Administration Nicotine Cravings Non-Formulary Medication 15 mg 03/20/20 09:00 03/23/20 08:41 Nebivolol [Bystolic] PO 15 mg DAILY MARTINEZ Administration Olanzapine 5 mg 03/17/20 09:00 03/23/20 08:42 Olanzapine 5 Mg Tablet PO 5 mg DAILY MARTINEZ Administration Olanzapine 15 mg 03/19/20 21:00 03/22/20 19:56 Olanzapine 10 Mg Tablet PO 15 mg BEDTIME MARTINEZ Administration Trazodone HCl 50 mg 03/18/20 19:11 Trazodone Hcl 50 Mg Tablet PO BEDTIME PRN Insomnia Allergies Allergies Allergy/AdvReac Type Severity Reaction Status Date / Time mirtazapine [MIRTAZAPINE] Allergy Intermediate UNKNOWN Verified 03/16/20 17:26 sulfamethoxazole Allergy Unknown RASH Verified 03/16/20 17:26 [From BACTRIM] trimethoprim [From BACTRIM] Allergy Unknown RASH Verified 03/16/20 17:26 Assessment & Plan Assessment & Plan (1) Bipolar 1 disorder, depressed, severe: Status: Acute Code(s): F31.4 - Bipolar disorder, current episode depressed, severe, without psychotic f eatures (2) Obsessive compulsive disorder: Qualifiers: Obsessive-compulsive disorder type: mixed obsessional thoughts and acts Qualified Code(s): F42.2 - Mixed obsessional thoughts and acts Status: Acute Code(s): F42.9 - Obsessive-compulsive disorder, unspecified (3) Alcohol use disorder, severe, in early remission: Status: Acute Code(s): F10.21 - Alcohol dependence, in remission Assessment and Plan: CT current plan DC in am Greater than 50% of the session was spent on counseling and/or coordination of care Patient educated on: diagnosis and medication risk/benefits Reason for contiued inpatient stay Substantial Risk for: rapid decompensation
[2020-03-23] MEDS: Acetaminophen 325 MG TABLET 650 MG PO ×2 (11:17→18:38)
[2020-03-23 16:05] VITALS: BP 139/80; PULSE 63; TEMP 36.6
[2020-03-23] MEDS: OLANZapine 10 MG TABLET 15 MG PO (21:05)
[2020-03-23 21:08] VITALS: BP 139/87; PULSE 60
[2020-03-23] MEDS: cloNIDine HCL 0.1 MG TABLET PO (21:08)
--- NOTE | 2020-03-24 05:16 | HO.PSYCHPN ---
Subjective Subjective Date of Service: 03/24/20 Reason For Visit: depression Subjective Notes: Conditional Voluntary Interim History: Ready for DC. See DC summary by Dr AVILA Diagnostics Vital Signs (24Hr): Vital Signs - 24 hr 03/23/20 05:40 03/23/20 16:05 03/23/20 21:08 Temperature 97.5 F 97.9 F Pulse Rate 59 63 60 Respiratory Rate 18 Blood Pressure 128/74 139/80 139/87 Body Mass Index 34.6 Labs Results: 03/16/20 20:05 03/19/20 07:29 Medications Medications Current Medications Generic Name Dose Route Start Last Admin Trade Name Freq PRN Reason Stop Dose Admin Acetaminophen 650 mg 03/18/20 19:11 03/23/20 18:38 Acetaminophen 325 Mg Tablet PO 650 mg Q6H PRN Administration Headache/Pain Mild Scale (1-3) Al Hydroxide/Mg Hydroxide 30 ml 03/18/20 19:11 Magnesium Hydrox/Alum Hydrox 30 Ml Oral.Susp PO Q6H PRN Heartburn/Nausea Buspirone HCl 10 mg 03/16/20 21:15 03/23/20 21:06 Buspirone Hcl 10 Mg Tablet PO 10 mg BID MARTINEZ Administration Clonazepam 1 mg 03/22/20 21:00 03/23/20 21:09 Clonazepam 1 Mg Tablet PO 1 mg BID MARTINEZ Administration Clonidine HCl 0.1 mg 03/16/20 21:15 03/23/20 21:08 Clonidine Hcl 0.1 Mg Tablet PO 0.1 mg BEDTIME MARTINEZ Administration Protocol Fluoxetine HCl 80 mg 03/20/20 09:00 03/23/20 08:41 Fluoxetine Hcl 20 Mg Capsule PO 80 mg DAILY MARTINEZ Administration Hydroxyzine HCl 25 mg 03/18/20 19:11 Hydroxyzine Hcl 25 Mg Tablet PO BEDTIME PRN Anxiety Lamotrigine 200 mg 03/17/20 09:00 03/23/20 21:07 Lamotrigine 100 Mg Tablet PO 200 mg BID MARTINEZ Administration Magnesium Hydroxide 30 ml 03/18/20 19:11 Milk Of Magnesia 30 Ml Oral.Susp PO DAILY PRN Constipation Nicotine Polacrilex 4 mg 03/18/20 20:19 03/23/20 14:37 Nicotine Polacrilex 4 Mg Lozenge BUCCAL 4 mg Q2H PRN Administration Nicotine Cravings Non-Formulary Medication 15 mg 03/20/20 09:00 03/23/20 08:41 Nebivolol [Bystolic] PO 15 mg DAILY MARTINEZ Administration Olanzapine 5 mg 03/17/20 09:00 03/23/20 08:42 Olanzapine 5 Mg Tablet PO 5 mg DAILY MARTINEZ Administration Olanzapine 15 mg 03/19/20 21:00 03/23/20 21:05 Olanzapine 10 Mg Tablet PO 15 mg BEDTIME MARTINEZ Administration Trazodone HCl 50 mg 03/18/20 19:11 Trazodone Hcl 50 Mg Tablet PO BEDTIME PRN Insomnia Allergies Allergies Allergy/AdvReac Type Severity Reaction Status Date / Time mirtazapine [MIRTAZAPINE] Allergy Intermediate UNKNOWN Verified 03/16/20 17:26 sulfamethoxazole Allergy Unknown RASH Verified 03/16/20 17:26 [From BACTRIM] trimethoprim [From BACTRIM] Allergy Unknown RASH Verified 03/16/20 17:26 Assessment & Plan Greater than 50% of the session was spent on counseling and/or coordination of care
[2020-03-24 06:28] VITALS: BP 127/58; PULSE 61; RESP 16; TEMP 36.2; O2SAT 98
[2020-03-24] MEDS: FLUoxetine HCl 20 MG CAPSULE 80 MG PO (08:42)
[2020-03-24] MEDS: OLANZapine 5 MG TABLET PO (08:43)
[2020-03-24] MEDS: clonazePAM 1 MG TABLET PO (08:43)
[2020-03-24] MEDS: lamoTRIgine 100 MG TABLET 200 MG PO (08:43)
[2020-03-24] MEDS: busPIRone HCl 10 MG TABLET PO (08:43)
--- NOTE | 2020-03-24 20:22 | PM.PSYDC ---
DS: Providers Provider Date of admission: 03/18/20 15:26 Primary care physician: Quan Baker MD Attending physician on admission: Jenni Anglin Attending physician on discharge: Murali Celis Anticipated date of discharge: 03/24/20 DS: Diagnosis Discharge Diagnosis (1) Bipolar 1 disorder, depressed, severe: Status: Acute (2) Obsessive compulsive disorder: Status: Acute (3) Alcohol use disorder, severe, in early remission: Status: Acute Discharge Plan Discharge Patient Disposition: Home, Self-Care Referrals: Ana Lilia Mcfarlane, therapist [Other] - 03/25/20 10:00 am Quan Baker MD [Primary Care Provider] - 03/30/20 9:35 am (IT'S A TELEVISIT VIA PHONE.) Damon Velazquez MD [Physician] - 03/30/20 8:30 am Discharge Medications: New trazodone 50 mg Tablet 50 mg PO BEDTIME PRN (Reason: Insomnia) Qty: 30 RF: 0 olanzapine 10 mg Tablet 15 mg PO BEDTIME Qty: 30 RF: 0 fluoxetine 20 mg Capsule 80 mg PO DAILY Qty: 120 RF: 0 Continued clonidine HCl 0.1 mg Tablet 0.1 mg PO BEDTIME Qty: 30 RF: 0 lamotrigine [Lamictal] 200 mg Tablet 200 mg PO BID Qty: 60 RF: 0 olanzapine 5 mg Tablet 5 mg PO DAILY Qty: 30 RF: 0 clonazepam [Klonopin] 1 mg Tablet 1 mg PO BID Qty: 60 RF: 0 buspirone 10 mg Tablet 10 mg PO BID Qty: 60 RF: 0 Bystolic 5 mg Tablet 5 mg PO DAILY Qty: 30 RF: 0 Bystolic 10 mg Tablet 10 mg PO DAILY Qty: 30 RF: 0 Discontinued olanzapine 10 mg Tablet 10 mg PO BEDTIME RF: 0 fluoxetine 60 mg Tablet 60 mg PO QAM RF: 0 Discharge Orders: Discharge Order (Routine); Ordered 03/24/20 Ordered By: Murali Celis Diet: advance to your usual diet Activity on Discharge: As tolerated Stand Alone Forms: Community Support Discharge Date/Time: 03/24/20 16:00 Visit Report Forms: Patient Portal Discharge page Care Plan Goals: Improve mood Stay sober Health Concerns: Bipolar disorder Alcohol abuse Plan of Treatment: Stay on your medications Don't drink Follow up with your providers Mental Status Exam Mental Status Exam Patient Appearance: Well Grooomed Patient Orientation: Person Level of Consciousness: Awake and Alert Patient Behavior: Appropriate, Cooperative and Good Eye Contact Mood Description: Calm and Sad Affect Description: Sad Patient Cognition Impaired: No Ability to Follow Directions: Fair Speech Pattern: Clear, Appropriate, Monotone and Soft-Spoken Memory Description: Intact Hallucinations: None Delusions: Not Present Thought Process: Intact Thought Content: positive for Obsessional Thoughts, positive for Circumstantial, positive for Perseveration, positive for Preoccupation, negative for Suicidal Ideation and negative for Homicidal Ideation Depressive Symptoms: Increased Anxiety Judgement: Fair Data Data Completed and Pending Completed studies during hospitalization [Text1]: 03/18/20 03/19/20 03/19/20 10:21 07:29 07:29 Sodium 140 Potassium 4.7 Chloride 102 Carbon Dioxide 29 Anion Gap 14 BUN 13 Creatinine 1.12 Estim Creat Clear Calc 116.2 Estimated GFR > 60 Fasting Glucose 91 Estimat Average Glucose 91 Hemoglobin A1c % 4.8 Calcium 9.6 Total Bilirubin 0.6 AST 131 H ALT 171 H Alkaline Phosphatase 100 Total Protein 7.4 Albumin 4.8 Triglycerides 165 Cholesterol 266 LDL Cholesterol, Calc 189 HDL Cholesterol 44 TSH 2.03 Free T4 1.08 Coronavirus (PCR) NEGATIVE DS: Summary Hospital Course Hospital Course: 39 year old man who was admitted to after being referred by [facility] due to an increase in depression and thoughts of self harm. He was evaluated in his home and then medically cleared in the ER. Tahir has been having increased thoughts of self harm, feeling hopeless, helpless and without motivation. He was struggling with anger and irritability. He wished he were . He reports that he had relapsed with alcohol after a more sustained sobriety. He had also had a decrease in zyprexa dose. Other precipitants include that he is thinking about the anniversary of his father's . His mother has some medical issues. Past Psychiatric History: Hospital stays: Last admission to 2013. He had ECT at that time Therapist is HOANG Pang Psychiatrist is HOANG Sanchez Medical Evaluation Reviewed: Yes Medically cleared for admission. No acute problems [facility] Medical History HTN (hypertension) Tachycardia Family History: Father committed suicide Social History: Lives with his mother. No children. On disability Substance History: Alcohol - last use one week ago Trauma History: Father's suicide Hospital course: Tahir was admitted on a CV. He had been medically cleared in the ER. He was comfortable on arrival to the floor and he engaged with peers and staff. The dose of zyprexa that he was on was increased, as was the dose of prozac. He rapidly recompensated with the support of staff and of peers. He was remorseful about his alcohol use. He decided he would return to 12 step meetings and he was engaged in learning about sobriety. He was able to reflect that he felt much better even after a few days of not drinking. By the time of discharge he was bright and happy with no SI. Time Spent with Patient Time attestation: Total time spent providing and/or coordinating discharge services:
== END 2020-03-24 16:00 | disposition home or self-care (01) | DRG 885 ==
LOC: HO.ED 03-18 16:27 → HO.PM5 03-18 16:40
PROVIDERS: Physician Assistant; Admitting Provider Psychiatry & Neurology Psychiatry; Emergency Provider Emergency Medicine; PCP Internal Medicine; Visit Provider Psychiatry & Neurology Psychiatry
DX: F31.4 Bipolar disorder, current episode depressed, severe, without psychotic features (principal); R45.851 Suicidal ideations; F10.21 Alcohol dependence, in remission; I10 Essential (primary) hypertension; F17.210 Nicotine dependence, cigarettes, uncomplicated; F42.9 Obsessive-compulsive disorder, unspecified; Z71.6 Tobacco abuse counseling; Z20.828 Contact with and (suspected) exposure to other viral communicable diseases; Z88.2 Allergy status to sulfonamides; Z79.899 Other long term (current) drug therapy
CPT/HCPCS: 36415; 80053; 80061; 80076; 80307; 80320; 82248; 83036; 84439; 84443; 85025; 87635; 99232; 99285

== ENCOUNTER 2020-04-10 17:17 | Emergency (ER) | payer MEDICARE, MEDICAID, SELFPAY ==
[2020-04-10 17:38] VITALS: BP 148/68; PULSE 72; RESP 18; TEMP 35.7; O2SAT 96; BMI 33.9
--- NOTE | 2020-04-10 17:47 | PC.NURSE ---
PT CHANGED OVER INTO HOSPITAL ATTIRE AND SECURED INTO THE POD LOCKERS
--- NOTE | 2020-04-10 18:00 | XR_ITS ---
EXAMINATION: Left thumb CLINICAL INFORMATION: Laceration. COMPARISON: None TECHNIQUE: 3 views of the left thumb. FINDINGS: No air in the soft tissue. No radiopaque foreign body. Bone and joint are normal. There is no fracture or dislocation. XR/XR finger LT min 2V IMPRESSION: No acute abnormality left thumb.
[2020-04-10] MEDS: Lidocaine HCl 2 % MPF 5 ML VIAL 10 ML SUBCUT (18:50)
--- NOTE | 2020-04-10 18:51 | PC.NURSE ---
thumb sutured by account administrator, report given to pod
--- NOTE | 2020-04-10 19:09 | PC.NURSE ---
PT was just transferred to the pod during shift changes. PT came in calm and cooperative. Resting quietly in his room.
[2020-04-10 19:30] LABS: Basophils Percent Auto 0.5 % (0-2); Eosinophils Absolute Auto 0.4 X10*3/uL (0.0-0.4); Eosinophils Percent Auto 5.3 % (0-4); Hematocrit 47.4 % (42-52); Hemoglobin 16.5 g/dl (14.0-18.0); Imm Gran Abs Auto 0.01 X10*3/uL (0.00-0.03); Imm Gran Pct Auto 0.1 % (0.0-0.4); Lymphocytes Absolute Auto 1.8 X10*3/uL (1.2-4.9); MANUAL DIFF FLAG NO; Mean Corpuscular HGB Conc 34.8 g/dl (31.0-36.0); Mean Corpuscular Hemoglobin 31.9 pg (27.0-33.0); Mean Corpuscular Volume 91.5 fL (80-98); Mean Platelet Volume 9.6 fL (9.4-12.4); Monocytes Absolute Auto 0.4 X10*3/uL (0.1-1.2); Monocytes Percent Auto 5.2 % (2-11); Neutrophils Absolute Auto 4.9 X10*3/uL (2.0-8.3); Neutrophils Percent Auto 64.9 % (45-73); Platelet Count 231 X10*3/uL (160-400); Red Blood Count 5.18 X10*6/uL (4.60-5.80); Red Cell Distribution Width 12.2 % (11.0-16.0); White Blood Count 7.5 X10*3/uL (4.8-10.8)
[2020-04-10 19:44] LABS: Amphetamine Screen Urine Not Detected (Not Detect); Barbiturates, Urine Not Detected (Not Detect); Benzodiazepines Screen Urine Not Detected (Not Detect); Cannabinoid Screen Urine Not Detected (Not Detect); Cocaine Screen Urine Not Detected (Not Detect); Opiate Screen Urine Not Detected (Not Detect); Phencyclidine Screen Urine Not Detected (Not Detect)
[2020-04-10 19:49] LABS: Ethanol 158 mg/dL
--- NOTE | 2020-04-10 19:55 | ED_ITS ---
HPI - Psych General Chief Complaint: Psychiatric Symptoms Stated Complaint: Thumb Lac/Intentional Time Seen by Provider: 04/10/20 18:00 Source: patient and EMS Mode of arrival: EMS Limitations: no limitations History of Present Illness HPI Narrative: 39-year-old male with past medical history bipolar disorder, obsessive-compulsive disorder, and alcoholism presents with alcohol intoxication, self-inflicted knife wound to the left thumb, and suicidal ideation. He denies chest pain, chest pressure, palpitations, shortness breath, abdominal pain, abdominal distention, dysuria, hematuria, fevers and chills. He states that he has a longstanding history of suicidal ideation, psychiatric admissions, and alcoholism. He is not interested in detox at this time. MD complaint: suicidal ideation and feels depressed Onset (ago): unknown Duration: constant History of same: Yes Relieving factors: none Exacerbating factors: alcohol Context: recent alcohol abuse Associated psychiatric symptoms: depression and suicidal ideation If self harm: admits thoughts of self harm and self-inflicted trauma Related Data Previous Rx's Medication Instructions Recorded Bystolic 5 mg PO DAILY #30 tab 03/23/20 Bystolic 10 mg PO DAILY #30 tab 03/23/20 buspirone 10 mg PO BID #60 tab 03/23/20 clonazepam [Klonopin] 1 mg PO BID #60 tab 03/23/20 clonidine HCl 0.1 mg PO BEDTIME #30 tab 03/23/20 fluoxetine 80 mg PO DAILY #120 cap 03/23/20 lamotrigine [Lamictal] 200 mg PO BID #60 tab 03/23/20 olanzapine 5 mg PO DAILY #30 tab 03/23/20 olanzapine 15 mg PO BEDTIME #30 tab 03/23/20 trazodone 50 mg PO BEDTIME PRN #30 tab 03/23/20 Allergies Allergy/AdvReac Type Severity Reaction Status Date / Time mirtazapine [MIRTAZAPINE] Allergy Intermediate UNKNOWN Verified 03/16/20 17:26 sulfamethoxazole Allergy Unknown RASH Verified 03/16/20 17:26 [From BACTRIM] trimethoprim [From BACTRIM] Allergy Unknown RASH Verified 03/16/20 17:26 Review of Systems Review of Systems: Constitutional: No Fever, No Chills ENT/Mouth: No Ear Pain, No Nasal Congestion, No sore throat Eyes: No Eye Pain, No Swelling, No Redness Cardiovascular: No Chest Pain, No SOB Respiratory: No Cough, No Sputum, No Dyspnea Gastrointestinal: No Nausea, No Vomiting, No Diarrhea, No Hematochezia, No Melena Genitourinary: No Dysuria, No Urinary Frequency, No Hematuria Musculoskeletal: No Myalgias Skin: positive laceration to the left thumb, No rash Neuro: No Weakness, No Numbness, No Paresthesias, No Dizziness, No Headache Psych: positive Anxiety, positive Depression, positive SI Heme/Lymph: No Lymphadenopathy Endocrine: No Polyuria, No Polydipsia Yes all other systems are reviewed and are negative [facility] Past Medical History Attestation statement: The following information was validated with the patient. Medical History HTN (hypertension) Tachycardia Social History Social History Household Members: Family Housing: House Alcohol intake: current Alcohol intake frequency: 0-2 drinks per day Alcohol type: hard liquor Smoking Status: Current every day smoker Tobacco Type: Cigarette Packs Per Day: 1 Cigarettes Per Day: 20.0 Smoked in Last 30 Days: Yes Second Hand Smoke Exposure: No Use of substances other than those prescribed or required for medical reasons: No Advance Directives: No Advance Directives Information Provided: Yes service: No Sexual orientation: Straight/Heterosexual Physical Exam Vital Signs: Vital Signs: Last Vital Signs Temp 97.5 F 04/10/20 21:26 Pulse 68 04/10/20 22:16 Resp 20 04/10/20 21:26 BP 113/67 04/10/20 22:16 Pulse Ox 97 04/10/20 21:26 Body Mass Index 33.9 Appearance: Alert. Oriented X3. mild distress acute alcohol intoxication. Eyes: Pupils equal, round and reactive to light. ENT: Pharynx normal. Neck: Normal inspection. Neck supple. CVS: Normal heart rate and rhythm. Pulses normal. Respiratory: No respiratory distress. Breath sounds normal. Abdomen: Soft and nontender. Skin: Skin warm and dry. Normal skin color. Normal skin turgor. 2.5 cm laceration to left thumb pad Extremities: No lower extremity edema. Neuro: No motor deficit. No sensory deficit. Course Course Course Narrative: 39-year-old male with past medical history bipolar disorder, OCD, alcoholism, presents with suicidal ideation, acute alcohol intoxication, and self-inflicted knife wound to the left thumb. Will order x-ray to rule out bone involvement and foreign body, suture, update Tdap, order CBC, Chem 7, ETOH level, and drugs of abuse screen. N Consult pending. Labs are unremarkable, x-rays negative for foreign body. Wound sutured per procedure note. Prepped and draped in sterile fashion. No blood loss. Patient tolerated procedure well. ETOH level 158. Procedures Laceration Laceration 1: Site: hand ( some) Side (If applicable): left Size (cm): 2.5 Description: linear Depth: simple, single layer Local Anesthetic: lidocaine 2% Amount of anesthesia used (mL): 5 Pre-repair: wound explored, irrigated extensively and deep structures intact Skin layer closed with: nylon Size (cm): 4-0 Number of sutures: 8 Technique: simple, interrupted MDM - Psych Differential Diagnosis Differential diagnosis: Likely acute psychosis, suicidal ideation, bipolar disorder, depression, acute anxiety and alcohol intoxication Restraints Face to Face Assessment: Face to Face Assessment: Current Situation: After assessment of the patient, a review of the pertinent medical record and a discussion with nursing staff, I feel the patient requires a restrain intervention. Reaction To: [] Medical Condition: [] Behavioral State: [] Continued Need: [] Medical Records Attestation: I reviewed the patient's medical records. Lab Data Attestation: I reviewed the patient's lab results. Result diagrams: 04/10/20 19:23 Labs: Lab Results 04/10/20 04/10/20 04/10/20 Range/Units 19:14 19:23 19:23 WBC 7.5 (4.8-10.8) X10*3/uL RBC 5.18 (4.60-5.80) X10*6/uL Hgb 16.5 (14.0-18.0) g/dl Hct 47.4 (42-52) % MCV 91.5 (80-98) fL MCH 31.9 (27.0-33.0) pg MCHC 34.8 (31.0-36.0) g/dl RDW 12.2 (11.0-16.0) % Plt Count 231 D (160-400) X10*3/uL MPV 9.6 (9.4-12.4) fL Immature Gran % (Auto) 0.1 (0.0-0.4) % Neut % (Auto) 64.9 (45-73) % Lymph % (Auto) 24.0 (20-40) % Darke % (Auto) 5.2 (2-11) % Eos % (Auto) 5.3 H (0-4) % Baso % (Auto) 0.5 (0-2) % Lymph # (Auto) 1.8 (1.2-4.9) X10*3/uL Darke # (Auto) 0.4 (0.1-1.2) X10*3/uL Eos # (Auto) 0.4 (0.0-0.4) X10*3/uL Baso # (Auto) 0.0 (0.0-0.2) X10*3/uL Abs Immat Gran (auto) 0.01 (0.00-0.03) X10*3/uL Absolute Neuts (auto) 4.9 (2.0-8.3) X10*3/uL Absolute Nucleated RBC 0.000 (0.0-0.012) X10*3/uL Nucleated RBC % (auto) 0.0 (0.0-0.2) /100WBC Urine Opiates Screen Not Detected (Not Detect) Ur Barbiturates Screen Not Detected (Not Detect) Ur Phencyclidine Scrn Not Detected (Not Detect) Ur Amphetamines Screen Not Detected (Not Detect) U Benzodiazepines Scrn Not Detected (Not Detect) Urine Cocaine Screen Not Detected (Not Detect) U Marijuana (THC) Screen Not Detected (Not Detect) Ethyl Alcohol 158 mg/dL Imaging Data and x-ray: Attestation: I personally reviewed and interpreted this imaging study as follows: Radiologist's impression: EXAMINATION: Left thumb CLINICAL INFORMATION: Laceration. COMPARISON: None TECHNIQUE: 3 views of the left thumb. FINDINGS: No air in the soft tissue. No radiopaque foreign body. Bone and joint are normal. There is no fracture or dislocation. XR/XR finger LT min 2V IMPRESSION: No acute abnormality left thumb. Discharge Plan Discharge Clinical Impression: Alcohol use disorder, severe, in early remission, Bipolar 1 disorder, depressed, severe, Laceration Obsessive compulsive disorder Qualifiers: Obsessive-compulsive disorder type: unspecified Qualified Code(s): F42.9 - Obsessive-compulsive disorder, unspecified Prescriptions: No Action trazodone 50 mg Tablet 50 mg PO BEDTIME PRN (Reason: Insomnia) Qty: 30 RF: 0 olanzapine 10 mg Tablet 15 mg PO BEDTIME Qty: 30 RF: 0 fluoxetine 20 mg Capsule 80 mg PO DAILY Qty: 120 RF: 0 clonidine HCl 0.1 mg Tablet 0.1 mg PO BEDTIME Qty: 30 RF: 0 lamotrigine [Lamictal] 200 mg Tablet 200 mg PO BID Qty: 60 RF: 0 olanzapine 5 mg Tablet 5 mg PO DAILY Qty: 30 RF: 0 clonazepam [Klonopin] 1 mg Tablet 1 mg PO BID Qty: 60 RF: 0 buspirone 10 mg Tablet 10 mg PO BID Qty: 60 RF: 0 Bystolic 5 mg Tablet 5 mg PO DAILY Qty: 30 RF: 0 Bystolic 10 mg Tablet 10 mg PO DAILY Qty: 30 RF: 0
[2020-04-10 21:26] VITALS: BP 113/67; PULSE 68; RESP 20; TEMP 36.4; O2SAT 97
--- NOTE | 2020-04-10 22:14 | PC.NURSE ---
PT's medications were reconciled with night time meds due tomorrow when they were needed tonight. Call pharmacy and pharmacist recommended giving the meds needed tonight as an unscheduled dose.
[2020-04-10 22:16] VITALS: BP 113/67; PULSE 68
[2020-04-10] MEDS: cloNIDine HCL 0.1 MG TABLET PO (22:16)
[2020-04-10] MEDS: OLANZapine 10 MG TABLET 15 MG PO (22:17)
[2020-04-10] MEDS: lamoTRIgine 100 MG TABLET 200 MG PO (22:20)
[2020-04-10] MEDS: busPIRone HCl 10 MG TABLET PO (22:21)
[2020-04-10] MEDS: clonazePAM 1 MG TABLET PO (22:21)
--- NOTE | 2020-04-11 02:00 | PC.NURSE ---
BHN at bed side.
[2020-04-11 02:38] LABS: COVID-19 Test Negative (Negative)
[2020-04-11 06:50] VITALS: BP 130/75; PULSE 69; RESP 17; TEMP 36.9; O2SAT 95
--- NOTE | 2020-04-11 07:18 | PC.NURSE ---
Report recieved. Pt currently walking around, reporting some pain in his thumb at this time, denies other complaints. Pt is inpatient bedsearch.
[2020-04-11] MEDS: clonazePAM 1 MG TABLET PO ×2 (09:47→20:09)
[2020-04-11] MEDS: FLUoxetine HCl 20 MG CAPSULE 80 MG PO (09:47)
[2020-04-11] MEDS: busPIRone HCl 10 MG TABLET PO ×2 (09:48→20:08)
[2020-04-11] MEDS: OLANZapine 5 MG TABLET PO (09:48)
[2020-04-11] MEDS: lamoTRIgine 100 MG TABLET 200 MG PO ×2 (09:48→20:05)
--- NOTE | 2020-04-11 10:04 | PC.NURSE ---
pt medicated per emar, tolerating po w/o issue. per pt, all needs met at this time. wctm.
[2020-04-11 10:13] VITALS: BP 125/76; PULSE 76; RESP 17; TEMP 36.5; O2SAT 95
[2020-04-11] MEDS: Acetaminophen 325 MG TABLET 650 MG PO ×2 (11:20→20:11)
--- NOTE | 2020-04-11 11:30 | PC.NURSE ---
pt given prn tylenol, tolerating po w/o issue.
--- NOTE | 2020-04-11 13:21 | PC.NURSE ---
bhn at bedside for daily eval
[2020-04-11 16:30] VITALS: BP 129/79; PULSE 66; RESP 17; TEMP 36.9; O2SAT 96
[2020-04-11] MEDS: LORazepam 1 MG TABLET PO (16:42)
[2020-04-11 20:05] VITALS: BP 128/81; PULSE 70
[2020-04-11] MEDS: cloNIDine HCL 0.1 MG TABLET PO (20:05)
[2020-04-11] MEDS: OLANZapine 10 MG TABLET 15 MG PO (20:09)
[2020-04-11 21:42] VITALS: RESP 18
--- NOTE | 2020-04-11 21:46 | PC.NURSE ---
Pt sleeping, no signs of distress. Respirations even, non-labored
--- NOTE | 2020-04-12 01:10 | PC.NURSE ---
PT is sleeping in his room. Breathing is even and unlabored. PT is inpatient bed search at this time.
[2020-04-12 06:32] VITALS: BP 131/94; PULSE 88; RESP 18; TEMP 36.6; O2SAT 96
--- NOTE | 2020-04-12 07:48 | PC.NURSE ---
PT sleeping, respirations even and unlabored, in no apparent distress. PT is inpatient bedsearch.
[2020-04-12 09:16] VITALS: BP 135/84; PULSE 68; RESP 18; TEMP 37; O2SAT 99
[2020-04-12] MEDS: busPIRone HCl 10 MG TABLET PO ×2 (09:40→20:06)
[2020-04-12] MEDS: clonazePAM 1 MG TABLET PO ×2 (09:40→20:06)
[2020-04-12] MEDS: FLUoxetine HCl 20 MG CAPSULE 80 MG PO (09:40)
[2020-04-12] MEDS: lamoTRIgine 100 MG TABLET 200 MG PO ×2 (09:41→20:06)
[2020-04-12] MEDS: OLANZapine 5 MG TABLET PO (09:41)
[2020-04-12 10:45] LABS: Anion Gap 12 (12-20); Blood Urea Nitrogen 13 mg/dL (9-16); Calcium 9.2 mg/dL (8.4-10.2); Carbon Dioxide 28 mmol/L (22-29); Chloride 103 mmol/L (96-108); Creatinine Clr Calc Pharmacy 130.2; Estimated Glomerular Filt Rate > 60; Glucose Random 118 mg/dL (60-115); Potassium 4.2 mmol/l (3.3-5.1); Sodium 139 mmol/L (135-145)
[2020-04-12 10:46] LABS: Alanine Aminotransferase 48 U/L (0-40); Albumin Level 4.3 g/dL (3.5-5.0); Alkaline Phosphatase 75 U/L (39-117); Aspartate Amino Transferase 35 U/L (5-37); Bilirubin Direct 0.3 mg/dL (0.0-0.5); Bilirubin Total 0.7 mg/dL (0.0-1.0); Total Protein 6.6 g/dL (6.5-8.0)
[2020-04-12] MEDS: LORazepam 1 MG TABLET PO (14:58)
[2020-04-12] MEDS: Acetaminophen 325 MG TABLET 650 MG PO (14:58)
[2020-04-12 17:09] VITALS: BP 121/72; PULSE 72; RESP 20; TEMP 36.9; O2SAT 96
--- NOTE | 2020-04-12 18:13 | PC.NURSE ---
Pt currently watching tv, calm and cooperative, home medications (bystolic) were brought in by family and sent to pharmacy. PT denies complaints.
[2020-04-12 19:59] VITALS: BP 126/85; PULSE 75; RESP 18; TEMP 36.4; O2SAT 97
[2020-04-12 20:06] VITALS: BP 126/85; PULSE 75
[2020-04-12] MEDS: cloNIDine HCL 0.1 MG TABLET PO (20:06)
[2020-04-12] MEDS: OLANZapine 10 MG TABLET 15 MG PO (20:06)
[2020-04-12 22:00] VITALS: RESP 18
[2020-04-13] VITALS (8 sets, daily range): BP systolic 118–126; BP diastolic 62–78; PULSE 63–70; RESP 16–20; TEMP 36.5–36.9; O2SAT 96–99
--- NOTE | 2020-04-13 05:53 | PC.NURSE ---
S/E: Alert and oriented. VSS. NAD. pt used bipap from home. 1;1 sitter status maintained for overnight shift. scheduled med given and tolerated well. Slept well. Pt continues to be on section 12 and in patient bedsearch.
[2020-04-13] MEDS: busPIRone HCl 10 MG TABLET PO (09:44)
[2020-04-13] MEDS: clonazePAM 1 MG TABLET PO (09:44)
[2020-04-13] MEDS: OLANZapine 5 MG TABLET PO (09:44)
[2020-04-13] MEDS: lamoTRIgine 100 MG TABLET 200 MG PO (09:45)
[2020-04-13] MEDS: FLUoxetine HCl 20 MG CAPSULE 80 MG PO (10:31)
--- NOTE | 2020-04-13 10:42 | PC.NURSE ---
pt resting in room, affect even- pt states that he would prefer to go to [facility] or to [facility]- pt aware, unlcear at this time where beds might be available. No other concerns reported.
[2020-04-13] MEDS: Acetaminophen 325 MG TABLET 650 MG PO (12:18)
--- NOTE | 2020-04-13 15:03 | PC.NURSE ---
Pt resting in room- out occasionally with questions re: admission posiibilities.
--- NOTE | 2020-04-13 16:42 | PC.NURSE ---
pt out in common area, conversing with another patient and watching television.
[2020-04-13] MEDS: Ibuprofen 600 MG TABLET PO (17:13)
--- NOTE | 2020-04-13 19:21 | PC.NURSE ---
Patient in milieu socializing with fellow patients, seems engaging, no distress reported, will continue to monitor.
== END 2020-04-13 20:15 | disposition home or self-care (01) ==
PROVIDERS: Nurse Practitioner Family; Physician Assistant Medical; Emergency Provider Emergency Medicine; PCP Internal Medicine
DX: S61.412A Laceration without foreign body of left hand, initial encounter (principal); R45.851 Suicidal ideations; M79.642 Pain in left hand; F33.1 Major depressive disorder, recurrent, moderate; F42.9 Obsessive-compulsive disorder, unspecified; F10.10 Alcohol abuse, uncomplicated; Y90.9 Presence of alcohol in blood, level not specified; X78.1XXA Intentional self-harm by knife, initial encounter; Y93.9 Activity, unspecified; Y92.9 Unspecified place or not applicable; Y99.9 Unspecified external cause status; F17.210 Nicotine dependence, cigarettes, uncomplicated; Z71.6 Tobacco abuse counseling; Z71.41 Alcohol abuse counseling and surveillance of alcoholic; Z20.828 Contact with and (suspected) exposure to other viral communicable diseases; Z79.899 Other long term (current) drug therapy
CPT/HCPCS: 12001; 36415; 73140; 80048; 80076; 80307; 80320; 85025; 87635; 90471; 90715; 99285

== ENCOUNTER 2020-12-08 15:25 | Inpatient (IN) | payer MEDICARE, MEDICAID, SELFPAY ==
--- NOTE | 2020-12-08 | ECG_ITS ---
Test Reason : PLACEMENT Blood Pressure : / mmHG Vent. Rate : 054 BPM Atrial Rate : 054 BPM P-R Int : 154 ms QRS Dur : 106 ms QT Int : 474 ms P-R-T Axes : 042 -03 016 degrees QTc Int : 449 ms Sinus bradycardia with sinus arrhythmia Nonspecific ST changes When compared with ECG of 14-MAY-2017 20:57, T wave inversion less evident in Anterior leads Referred By: Reanna Kaufman Electronically Signed By:Robert Pantoja
--- NOTE | 2020-12-08 15:29 | ED.PSYCH ---
HPI - Psych General Chief Complaint: Psychiatric Symptoms Stated Complaint: SECTION 12 Time Seen by Provider: 12/08/20 15:28 Source: patient and EMS Mode of arrival: EMS Limitations: no limitations History of Present Illness HPI Narrative: 40 y/o male with history of bipolar disorder, anxiety, alcohol abuse/dependence, depression with hx ECT in 2013, & OCD who presents to the ED from [facility] clinic via EMS with worsening depression and anxiety. He reports wanting to cut his arms to end his life. He has prior suicide attempts with cutting and placing a bag over his head. He reports self harm at home with hitting himself in the head recurrently until he gets a headache. He lives at home with his mother who he feels badly stressing her with his behaviors. He has been compliant with his klonopin for anxiety. He reports occasional marijuana use and frequent alcohol abuse. He wants to stop drinking because he knows it makes his depression worse. MD complaint: suicidal ideation, feels depressed and alcohol abuse Onset (ago): week(s) Duration: constant History of same: Yes Relieving factors: medication and therapy Exacerbating factors: alcohol Context: recent alcohol abuse Associated psychiatric symptoms: depression and suicidal ideation Associated symptoms: headache Treatments prior to arrival: none If self harm: admits thoughts of self harm and has plan Details of plan: cutting his wrists, he owns a knife collection Related Data Home Medications Medication Instructions Recorded Confirmed buspirone 1 tab PO BID 12/08/20 12/08/20 clonidine HCl 0.05 mg PO BID PRN 12/08/20 12/08/20 clonidine HCl 0.1 mg PO BEDTIME PRN 12/08/20 12/08/20 fluoxetine 80 mg PO DAILY 12/08/20 12/08/20 propranolol 1 tab PO BID 12/08/20 12/08/20 Previous Rx's Medication Instructions Recorded clonazepam [Klonopin] 1 mg PO BID #60 tab 03/23/20 lamotrigine [Lamictal] 200 mg PO BID #60 tab 03/23/20 olanzapine 5 mg PO DAILY #30 tab 03/23/20 olanzapine 15 mg PO BEDTIME #30 tab 03/23/20 Allergies Allergy/AdvReac Type Severity Reaction Status Date / Time mirtazapine [MIRTAZAPINE] Allergy Intermediate UNKNOWN Verified 03/16/20 17:26 sulfamethoxazole Allergy Unknown RASH Verified 03/16/20 17:26 [From BACTRIM] trimethoprim [From BACTRIM] Allergy Unknown RASH Verified 03/16/20 17:26 Review of Systems Review of Systems: Constitutional: No Fever, No Chills ENT/Mouth: No sore throat, No Rhinorrhea, No Swallowing Difficulty Cardiovascular: No Chest Pain, No SOB Respiratory: No Cough, No Sputum Gastrointestinal: No Nausea, No Vomiting, No Diarrhea, No abdominal Pain Genitourinary: No Dysuria, No Urinary Frequency, No Hematuria Musculoskeletal: No joint pain, No Myalgias Skin: No Skin Lesions, No rash Neuro: No Weakness, No Numbness, No Dizziness, + Headache Psych: + Anxiety/Panic, + Depression, + SI Heme/Lymph: No Bruising, No Lymphadenopathy Endocrine: No Polyuria, No Polydipsia PMFSH Past Medical History Attestation statement: The following information was validated with the patient. Medical History HTN (hypertension) Tachycardia Social History Social History Household Members: Family Housing: House Do you presently have visiting nurse or other home services: No Alcohol intake: current Alcohol intake frequency: 0-2 drinks per day Alcohol type: hard liquor Cigarette Packs Per Day: 1 Cigarettes Per Day: 20.0 Second Hand Smoke Exposure: No Advance Directives: No Advance Directives Information Provided: No service: No Sexual orientation: Straight/Heterosexual Physical Exam Vital Signs: Vital Signs: Last Vital Signs Temp 98.8 F 12/08/20 15:51 Pulse 78 12/08/20 15:51 Resp 16 12/08/20 15:51 BP 151/101 H 12/08/20 15:51 Pulse Ox 97 12/08/20 15:51 Body Mass Index 31.1 Appearance: Alert. Oriented X3. No acute distress. Eyes: Pupils equal, round and reactive to light. ENT: Pharynx normal. Neck: Normal inspection. Neck supple. CVS: Normal heart rate and rhythm. Pulses normal. Respiratory: No respiratory distress. Breath sounds normal. Abdomen: Soft and nontender. +BS x4 Skin: Skin warm and dry. Normal skin color. Normal skin turgor. No rashes. Extremities: No lower extremity edema. Neuro: Oriented X 3. No motor deficit. No sensory deficit. Speaks in complete sentences, makes eye contact. Suicidal. Course Course Course Narrative: 40 y/o male presenting with worsening depression, anxiety and suicidal thoughts. Will get metabolic workup for medical clearance. Will monitor for alcohol withdrawal. Will have N evaluate him for possible inpatient level of care. Reevaluation(s) Reevaluation #1: Labs showing mild transaminitis with AST/ALT 182/252 and alk phos 130 and normal bilirubins. Most likely due to alcohol abuse, possible mild alcoholic hepatits. He has no RUQ pain or tenderness. At this time he is medically cleared. Physician observation started at 4:55pm. Patient placed in physician observation because patient is awaiting [facility] evaluation for the possible need of inpatient psych admission. At the time observation was started patient's vital signs were stable. Patient is alert and oriented. Neuro exam is non-focal. CV: RRR and lungs are clear. Will continue to monitor. [facility] - Psych Lab Data Result diagrams: 12/08/20 16:06 12/08/20 16:06 Labs: Lab Results 12/08/20 12/08/20 12/08/20 Range/Units 15:52 15:52 15:52 WBC (4.8-10.8) X10*3/uL RBC (4.60-5.80) X10*6/uL Hgb (14.0-18.0) g/dl Hct (42-52) % MCV (80-98) fL MCH (27.0-33.0) pg MCHC (31.0-36.0) g/dl RDW (11.0-16.0) % Plt Count (160-400) X10*3/uL MPV (9.4-12.4) fL Immature Gran % (Auto) (0.0-0.4) % Neut % (Auto) (45-73) % Lymph % (Auto) (20-40) % Mcdonough % (Auto) (2-11) % Eos % (Auto) (0-4) % Baso % (Auto) (0-2) % Lymph # (Auto) (1.2-4.9) X10*3/uL Mcdonough # (Auto) (0.1-1.2) X10*3/uL Eos # (Auto) (0.0-0.4) X10*3/uL Baso # (Auto) (0.0-0.2) X10*3/uL Abs Immat Gran (auto) (0.00-0.03) X10*3/uL Absolute Neuts (auto) (2.0-8.3) X10*3/uL Absolute Nucleated RBC (0.0-0.012) X10*3/uL Nucleated RBC % (auto) (0.0-0.2) /100WBC Sodium (135-145) mmol/L Potassium (3.3-5.1) mmol/L Chloride (96-108) mmol/L Carbon Dioxide (22-29) mmol/L Anion Gap (12-20) BUN (9-16) mg/dL Creatinine (0.5-1.4) mg/dL Estim Creat Clear Calc Estimated GFR Random Glucose (60-115) mg/dL Calcium (8.4-10.2) mg/dL Magnesium (1.6-2.6) mg/dL Total Bilirubin (0.0-1.0) mg/dL Direct Bilirubin (0.0-0.5) mg/dL AST (5-37) U/L ALT (0-40) U/L Alkaline Phosphatase (39-117) U/L Total Protein (6.5-8.0) g/dL Albumin (3.5-5.0) g/dL Urine Color YELLOW Urine Appearance CLEAR Urine pH 7.5 (5.0-8.0) Ur Specific [place] 1.010 (1.005-1.025) Urine Protein 1+ H (NEG-TRACE) MG/DL Urine Glucose (UA) NEG (NEG) MG/DL Urine Ketones NEG (NEG) MG/DL Urine Blood NEG (NEG) Urine Nitrite NEG (NEG) Ur Leukocyte Esterase NEG (NEG) Urine RBC 0 (0) /HPF Urine WBC 0 (0-4) /HPF Ur Squamous Epith Cells NONE /LPF Urine Bacteria TRACE /LPF Urine Opiates Screen Not Detected (Not Detect) Ur Barbiturates Screen Not Detected (Not Detect) Ur Phencyclidine Scrn Not Detected (Not Detect) Ur Amphetamines Screen Not Detected (Not Detect) U Benzodiazepines Scrn Not Detected (Not Detect) Urine Cocaine Screen Not Detected (Not Detect) U Marijuana (THC) Screen Not Detected (Not Detect) Ethyl Alcohol mg/dL COVID-19 (COLE) Negative (Negative) COVID-19 Clin Com See Note 12/08/20 12/08/20 12/08/20 Range/Units 16:06 16:06 16:06 WBC 6.9 (4.8-10.8) X10*3/uL RBC 4.98 (4.60-5.80) X10*6/uL Hgb 15.7 (14.0-18.0) g/dl Hct 45.8 (42-52) % MCV 92.0 (80-98) fL MCH 31.5 (27.0-33.0) pg MCHC 34.3 (31.0-36.0) g/dl RDW 12.9 (11.0-16.0) % Plt Count 163 D (160-400) X10*3/uL MPV 9.0 L (9.4-12.4) fL Immature Gran % (Auto) 0.3 (0.0-0.4) % Neut % (Auto) 67.9 (45-73) % Lymph % (Auto) 19.5 L (20-40) % Mcdonough % (Auto) 8.2 (2-11) % Eos % (Auto) 3.5 (0-4) % Baso % (Auto) 0.6 (0-2) % Lymph # (Auto) 1.3 (1.2-4.9) X10*3/uL Mcdonough # (Auto) 0.6 (0.1-1.2) X10*3/uL Eos # (Auto) 0.2 (0.0-0.4) X10*3/uL Baso # (Auto) 0.0 (0.0-0.2) X10*3/uL Abs Immat Gran (auto) 0.02 (0.00-0.03) X10*3/uL Absolute Neuts (auto) 4.7 (2.0-8.3) X10*3/uL Absolute Nucleated RBC 0.000 (0.0-0.012) X10*3/uL Nucleated RBC % (auto) 0.0 (0.0-0.2) /100WBC Sodium 139 (135-145) mmol/L Potassium 4.2 (3.3-5.1) mmol/L Chloride 101 (96-108) mmol/L Carbon Dioxide 24 (22-29) mmol/L Anion Gap 18 (12-20) BUN 8 L (9-16) mg/dL Creatinine 1.07 (0.5-1.4) mg/dL Estim Creat Clear Calc 122.3 Estimated GFR > 60 Random Glucose 99 (60-115) mg/dL Calcium 9.9 D (8.4-10.2) mg/dL Magnesium 2.0 (1.6-2.6) mg/dL Total Bilirubin 0.8 (0.0-1.0) mg/dL Direct Bilirubin 0.3 (0.0-0.5) mg/dL AST 182 H (5-37) U/L ALT 252 H (0-40) U/L Alkaline Phosphatase 130 H D (39-117) U/L Total Protein 7.5 (6.5-8.0) g/dL Albumin 4.7 (3.5-5.0) g/dL Urine Color Urine Appearance Urine pH (5.0-8.0) Ur Specific [place] (1.005-1.025) Urine Protein (NEG-TRACE) MG/DL Urine Glucose (UA) (NEG) MG/DL Urine Ketones (NEG) MG/DL Urine Blood (NEG) Urine Nitrite (NEG) Ur Leukocyte Esterase (NEG) Urine RBC (0) /HPF Urine WBC (0-4) /HPF Ur Squamous Epith Cells /LPF Urine Bacteria /LPF Urine Opiates Screen (Not Detect) Ur Barbiturates Screen (Not Detect) Ur Phencyclidine Scrn (Not Detect) Ur Amphetamines Screen (Not Detect) U Benzodiazepines Scrn (Not Detect) Urine Cocaine Screen (Not Detect) U Marijuana (THC) Screen (Not Detect) Ethyl Alcohol < 10 mg/dL COVID-19 (COLE) (Negative) COVID-19 Clin Com Discharge Plan Discharge Clinical Impression: Alcohol abuse, Transaminitis Depression Qualifiers: Depression Type: major depressive disorder Major depression recurrence: recurrent Active/Remission status: currently active Major depression episode severity: unspecified Qualified Code(s): F33.9 - Major depressive disorder, recurrent, unspecified Prescriptions: No Action fluoxetine 40 mg capsule 80 mg PO DAILY RF: 0 clonidine HCl 0.1 mg tablet 0.05 mg PO BID PRN (Reason: Anxiety) RF: 0 buspirone 30 mg tablet 1 tab PO BID RF: 0 propranolol 20 mg tablet 1 tab PO BID RF: 0 clonidine HCl 0.1 mg tablet 0.1 mg PO BEDTIME PRN (Reason: Insomnia) RF: 0 olanzapine 10 mg Tablet 15 mg PO BEDTIME Qty: 30 RF: 0 lamotrigine [Lamictal] 200 mg Tablet 200 mg PO BID Qty: 60 RF: 0 olanzapine 5 mg Tablet 5 mg PO DAILY Qty: 30 RF: 0 clonazepam [Klonopin] 1 mg Tablet 1 mg PO BID Qty: 60 RF: 0
[2020-12-08 15:51] VITALS: BP 151/101; BP 160/90; PULSE 72; PULSE 78; RESP 16; TEMP 37.1; O2SAT 97; BMI 31.1
--- NOTE | 2020-12-08 15:54 | PHA.MEDREC ---
Pharmacy Consult ? Medication Reconciliation Pharmacy has completed the medication reconciliation.
[2020-12-08 16:00] LABS: Glucose Urine UA NEG (NEG); Leukocyte Esterase Urine NEG (NEG); Nitrite Urine NEG (NEG); PH 7.5 (5.0-8.0); Urine Blood NEG (NEG); Urine Ketones NEG (NEG); Urine Protein 1+ MG/DL (NEG-TRACE)
[2020-12-08 16:01] LABS: Appearance Urine CLEAR; Color Urine YELLOW
[2020-12-08 16:10] LABS: MANUAL DIFF FLAG NO
[2020-12-08 16:11] LABS: Bacteria Urine TRACE /LPF; RBC Urine 0 /HPF (0); WBC Urine 0 /HPF (0-4)
[2020-12-08 16:13] LABS: Basophils Percent Auto 0.6 % (0-2); Eosinophils Absolute Auto 0.2 X10*3/uL (0.0-0.4); Eosinophils Percent Auto 3.5 % (0-4); Hematocrit 45.8 % (42-52); Hemoglobin 15.7 g/dl (14.0-18.0); Imm Gran Abs Auto 0.02 X10*3/uL (0.00-0.03); Imm Gran Pct Auto 0.3 % (0.0-0.4); Lymphocytes Absolute Auto 1.3 X10*3/uL (1.2-4.9); Lymphocytes Percent Auto 19.5 % (20-40); Mean Corpuscular HGB Conc 34.3 g/dl (31.0-36.0); Mean Corpuscular Hemoglobin 31.5 pg (27.0-33.0); Monocytes Absolute Auto 0.6 X10*3/uL (0.1-1.2); Monocytes Percent Auto 8.2 % (2-11); Neutrophils Absolute Auto 4.7 X10*3/uL (2.0-8.3); Neutrophils Percent Auto 67.9 % (45-73); Platelet Count 163 X10*3/uL (160-400); Red Blood Count 4.98 X10*6/uL (4.60-5.80); Red Cell Distribution Width 12.9 % (11.0-16.0); White Blood Count 6.9 X10*3/uL (4.8-10.8)
[2020-12-08 16:18] LABS: COVID-19 Test Negative (Negative)
[2020-12-08 16:21] LABS: Amphetamine Screen Urine Not Detected (Not Detect); Barbiturates, Urine Not Detected (Not Detect); Benzodiazepines Screen Urine Not Detected (Not Detect); Cannabinoid Screen Urine Not Detected (Not Detect); Cocaine Screen Urine Not Detected (Not Detect); Opiate Screen Urine Not Detected (Not Detect); Phencyclidine Screen Urine Not Detected (Not Detect)
[2020-12-08 16:32] LABS: Ethanol < 10 mg/dL
[2020-12-08 16:43] LABS: Alanine Aminotransferase 252 U/L (0-40); Albumin Level 4.7 g/dL (3.5-5.0); Alkaline Phosphatase 130 U/L (39-117); Anion Gap 18 (12-20); Aspartate Amino Transferase 182 U/L (5-37); Bilirubin Direct 0.3 mg/dL (0.0-0.5); Bilirubin Total 0.8 mg/dL (0.0-1.0); Blood Urea Nitrogen 8 mg/dL (9-16); Calcium 9.9 mg/dL (8.4-10.2); Carbon Dioxide 24 mmol/L (22-29); Chloride 101 mmol/L (96-108); Creatinine Clr Calc Pharmacy 122.3; Estimated Glomerular Filt Rate > 60; Glucose Random 99 mg/dL (60-115); Potassium 4.2 mmol/L (3.3-5.1); Sodium 139 mmol/L (135-145); Total Protein 7.5 g/dL (6.5-8.0)
[2020-12-08] MEDS: Nicotine Polacrilex 2 MG GUM BUCCAL (18:49)
[2020-12-08 18:52] VITALS: BP 148/94; PULSE 69; RESP 16; TEMP 36.8; O2SAT 96
[2020-12-08 20:40] VITALS: BP 144/100; PULSE 68; RESP 20; TEMP 36.4; O2SAT 97
[2020-12-08] MEDS: clonazePAM 1 MG TABLET PO (20:41)
[2020-12-08 20:42] VITALS: BP 144/100; PULSE 68
[2020-12-08] MEDS: busPIRone HCl 10 MG TABLET 30 MG PO (20:42)
[2020-12-08] MEDS: lamoTRIgine 100 MG TABLET 200 MG PO (20:42)
[2020-12-08] MEDS: Propranolol HCL 20 MG TABLET PO (20:42)
[2020-12-08] MEDS: OLANZapine 7.5 MG TABLET 15 MG PO (20:42)
[2020-12-09] VITALS (11 sets, daily range): BP systolic 132–166; BP diastolic 86–96; PULSE 61–89; RESP 17–20; TEMP 36.3–36.9; O2SAT 96–97
--- NOTE | 2020-12-09 02:18 | PC.ADMIT ---
40 year old male patient admitted to M3 at 0040 from [facility] ER with diagnoses Major Depressive Disorder, Panic Disorder and ETOH dependence. Pt. signed a CV. Psychiatric provider notified of admission and admission orders obtained. Legals signed by patient. Pt. calm and cooperative, speech clear, pt. responding appropriately to questions. Medical history includes hypertension, mild asthma and obstructive sleep apnea. Pt. uses a CPAP and reports someone will bring in CPAP to unit during the day. Behavioral Health history includes anxiety, depression, substance abuse, SI and panic disorder. Pt. follows outpatient with a psychiatrist and therapist at [facility]. Pt. reports positive SI with plan to cut wrists or hit himself in the head with a hammer. Pt. reports past suicide attempts by putting a bag over his head and cutting arms approximately 8 years ago. Pt. reports feeling safe on unit and stated he will come to staff if having thoughts of SI. Pt. denied HI. He denies history of aggression or violence. Pt. reports recent increased use of alcohol to cope with anxiety. Pt. reported positive anxiety 4/10 and depression 5/10. Mood anxious and depressed but pt. did not demonstrate anxious behaviors. Pt. denied s/sx of ETOH withdrawal. Pt. was calm and cooperative. Admission assessment completed. Pt. on 15 minute safety checks. Pt. appropriate for psych/dual groups. Pt. is a smoker and requests nicotine gum for smoking cessation. Pt. reported feeling tired and requested to go to bed. Pt. resting quietly at this time.
[2020-12-09 07:35] LABS: Cholesterol 272 mg/dL; Estimated Average Glucose 91 mg/dL; HDL Cholesterol 41 mg/dL; Hemoglobin A1c % 4.8 %; LDL Cholesterol Calculated 171 mg/dl; Magnesium 2.1 mg/dL (1.6-2.6); Triglycerides 300 mg/dL
[2020-12-09 07:56] LABS: Free T4 (Free Thyroxine) 1.06 ng/dL (0.71-1.85)
[2020-12-09 08:11] LABS: Folate 12.5 ng/mL (> or = 4.0); Vitamin B12 229 pg/mL (200-900)
[2020-12-09] MEDS: Multivitamin TABLET 1 TAB PO (08:45)
[2020-12-09] MEDS: Thiamine HCL 100 MG TABLET PO (08:45)
[2020-12-09] MEDS: clonazePAM 1 MG TABLET PO ×2 (08:45→23:05)
[2020-12-09] MEDS: Propranolol HCL 20 MG TABLET PO ×2 (08:45→23:06)
[2020-12-09] MEDS: lamoTRIgine 100 MG TABLET 200 MG PO ×2 (08:45→23:04)
[2020-12-09] MEDS: OLANZapine 5 MG TABLET PO (08:46)
[2020-12-09] MEDS: FLUoxetine HCl 20 MG CAPSULE 80 MG PO (08:46)
[2020-12-09] MEDS: busPIRone HCl 10 MG TABLET 30 MG PO ×2 (09:19→23:04)
[2020-12-09] MEDS: Nicotine Polacrilex 2 MG GUM BUCCAL ×3 (09:32→21:02)
--- NOTE | 2020-12-09 14:05 | P.HPPS_ITS ---
HPI Chief Complaint: Bipolar Disorder Sources of Information: patient interviewed, chart reviewed and crisis/core team assessment reviewed HPI Narrative: per crisis eval, pt was referred to [facility] Crisis team by his therapist after he reported SI to her. he reported to her that for about a week he had been having suicidal thoughts with plan to hit himself in the head with a hammer or cut his wrists. he had been having a substantial increase in anxiety and panic attacks. he reported to crisis staff that he had been feeling very overwhelmed and waking up every day crying and had started to use alcohol to manage his symptoms, which has only exacerbated his anxiety and depression. on interview with MD pt supports the narrative above and really seems to emphasize that his regimen does him well when he is not drinking and that when he is drinking it ends up backfiring and making his depression and anxiety worse. he would like to get and stay sober and then see how his mood and an xiety go. he declines to consider any medication changes currently, including MAT for AUD. he is educated re antabuse and naltrexone, however, in case he decides to change his mind. he also declines alcohol rehab treatment , stating he has a cost recovery technician and will be going to AA, which he feels is an adequate intervention. MD educates pt about DBT, and he expresses strong interest in referral to DBT program. he denies DOLAN, sweats, tremors, n/v/d, severe anxiety or panic today. reports most recent SI was a few days ago, and it is ego dystonic. his most recent SIBI was about 2 weewks ago. he would like to get detoxed from alcohol and then discharged with DBT referral. Past Psychiatric History: Hospital stays: Last admission to [facility] 2013. He had ECT at that time. has had at least 3 hosps. also has done PHP at least once, which he found helpful, and some [facility] stays. no h/o suicide attempts (but did place a plastic bag over his head during [facility] stay once). h/o SIB - cutting. has required stitches in the past. also slapping himself in the face. Therapist is HOANG Pang. Psychiatrist is HOANG Sanchez. Medical Evaluation Reviewed: Yes [facility] Medical History HTN (hypertension) Tachycardia Family History: Father committed suicide. alcohol use disorder. sister - alcohol use disorder. Social History: Lives with his mother. youngest of 4 children. father suicided when pt was 9 yo. 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 No children. Substance History: alcohol - first used at age 26. recently daily use, 1/2 pint of whiskey plus some beers daily. cannabis - sporadic use tobacco - 0.5 ppd. no h/o detoxes or substance use treatment otherwise. Trauma History: Father's suicide Diagnostics Vital Signs (24Hr): Vital Signs - 24 hr 12/08/20 15:51 12/08/20 18:52 12/08/20 20:40 Temperature 98.8 F 98.3 F 97.5 F Pulse Rate 78 69 68 Respiratory Rate 16 16 20 Blood Pressure 151/101 H 148/94 H 144/100 H Pulse Oximetry 97 96 97 12/08/20 20:42 12/09/20 00:00 12/09/20 01:39 Temperature 97.3 F 97.3 F Pulse Rate 68 63 63 Respiratory Rate 20 20 Blood Pressure 144/100 H 166/96 H 166/96 H Pulse Oximetry 97 97 12/09/20 03:52 12/09/20 03:53 12/09/20 06:00 Temperature 97.4 F 97.4 F 98.3 F Pulse Rate 62 62 74 Respiratory Rate 18 18 20 Blood Pressure 132/86 132/86 140/90 H Pulse Oximetry 96 96 96 12/09/20 08:45 Temperature Pulse Rate 74 Respiratory Rate Blood Pressure 140/90 H Pulse Oximetry Body Mass Index 31.1 Labs Results: 12/08/20 16:06 12/08/20 16:06 Labs: Laboratory Results - last 48 hr 12/08/20 12/08/20 12/08/20 15:52 15:52 15:52 WBC RBC Hgb Hct MCV MCH MCHC RDW Plt Count MPV Immature Gran % (Auto) Neut % (Auto) Lymph % (Auto) [place] % (Auto) Eos % (Auto) Baso % (Auto) Lymph # (Auto) [place] # (Auto) Eos # (Auto) Baso # (Auto) Abs Immat Gran (auto) Absolute Neuts (auto) Absolute Nucleated RBC Nucleated RBC % (auto) Sodium Potassium Chloride Carbon Dioxide Anion Gap BUN Creatinine Estim Creat Clear Calc Estimated GFR Random Glucose Estimat Average Glucose Hemoglobin A1c % Calcium Magnesium Total Bilirubin Direct Bilirubin AST ALT Alkaline Phosphatase Total Protein Albumin Triglycerides Cholesterol LDL Cholesterol, Calc HDL Cholesterol Vitamin B12 Folate TSH Free T4 Urine Color YELLOW Urine Appearance CLEAR Urine pH 7.5 Ur Specific [place] 1.010 Urine Protein 1+ H Urine Glucose (UA) NEG Urine Ketones NEG Urine Blood NEG Urine Nitrite NEG Ur Leukocyte Esterase NEG Urine RBC 0 Urine WBC 0 Ur Squamous Epith Cells NONE Urine Bacteria TRACE Urine Opiates Screen Not Detected Ur Barbiturates Screen Not Detected Ur Phencyclidine Scrn Not Detected Ur Amphetamines Screen Not Detected U Benzodiazepines Scrn Not Detected Urine Cocaine Screen Not Detected U Marijuana (THC) Screen Not Detected Ethyl Alcohol COVID-19 (COLE) Negative COVID-19 Clin Com See Note 12/08/20 12/08/20 12/08/20 16:06 16:06 16:06 WBC 6.9 RBC 4.98 Hgb 15.7 Hct 45.8 MCV 92.0 MCH 31.5 MCHC 34.3 RDW 12.9 Plt Count 163 D MPV 9.0 L Immature Gran % (Auto) 0.3 Neut % (Auto) 67.9 Lymph % (Auto) 19.5 L [place] % (Auto) 8.2 Eos % (Auto) 3.5 Baso % (Auto) 0.6 Lymph # (Auto) 1.3 [place] # (Auto) 0.6 Eos # (Auto) 0.2 Baso # (Auto) 0.0 Abs Immat Gran (auto) 0.02 Absolute Neuts (auto) 4.7 Absolute Nucleated RBC 0.000 Nucleated RBC % (auto) 0.0 Sodium 139 Potassium 4.2 Chloride 101 Carbon Dioxide 24 Anion Gap 18 BUN 8 L Creatinine 1.07 Estim Creat Clear Calc 122.3 Estimated GFR > 60 Random Glucose 99 Estimat Average Glucose Hemoglobin A1c % Calcium 9.9 D Magnesium 2.0 Total Bilirubin 0.8 Direct Bilirubin 0.3 AST 182 H ALT 252 H Alkaline Phosphatase 130 H D Total Protein 7.5 Albumin 4.7 Triglycerides Cholesterol LDL Cholesterol, Calc HDL Cholesterol Vitamin B12 Folate TSH Free T4 Urine Color Urine Appearance Urine pH Ur Specific [place] Urine Protein Urine Glucose (UA) Urine Ketones Urine Blood Urine Nitrite Ur Leukocyte Esterase Urine RBC Urine WBC Ur Squamous Epith Cells Urine Bacteria Urine Opiates Screen Ur Barbiturates Screen Ur Phencyclidine Scrn Ur Amphetamines Screen U Benzodiazepines Scrn Urine Cocaine Screen U Marijuana (THC) Screen Ethyl Alcohol < 10 COVID-19 (COLE) COVID-19 Enjoyor Com 12/09/20 12/09/20 12/09/20 07:01 07:01 07:01 WBC RBC Hgb Hct MCV MCH MCHC RDW Plt Count MPV Immature Gran % (Auto) Neut % (Auto) Lymph % (Auto) [place] % (Auto) Eos % (Auto) Baso % (Auto) Lymph # (Auto) [place] # (Auto) Eos # (Auto) Baso # (Auto) Abs Immat Gran (auto) Absolute Neuts (auto) Absolute Nucleated RBC Nucleated RBC % (auto) Sodium Potassium Chloride Carbon Dioxide Anion Gap BUN Creatinine Estim Creat Clear Calc Estimated GFR Random Glucose Estimat Average Glucose 91 Hemoglobin A1c % 4.8 Calcium Magnesium 2.1 Total Bilirubin Direct Bilirubin AST ALT Alkaline Phosphatase Total Protein Albumin Triglycerides 300 Cholesterol 272 LDL Cholesterol, Calc 171 HDL Cholesterol 41 Vitamin B12 229 Folate 12.5 TSH 1.40 Free T4 1.06 Urine Color Urine Appearance Urine pH Ur Specific [place] Urine Protein Urine Glucose (UA) Urine Ketones Urine Blood Urine Nitrite Ur Leukocyte Esterase Urine RBC Urine WBC Ur Squamous Epith Cells Urine Bacteria Urine Opiates Screen Ur Barbiturates Screen Ur Phencyclidine Scrn Ur Amphetamines Screen U Benzodiazepines Scrn Urine Cocaine Screen U Marijuana (THC) Screen Ethyl Alcohol COVID-19 (COLE) COVID-19 Enjoyor Com Meds/Allergies Meds Home Medications Acetaminophen (Acetaminophen 325 Mg Tablet) 650 mg PO Q6H PRN PRN Reason: Headache/Pain Mild Scale (1-3) Al Hydroxide/Mg Hydroxide (Magnesium Hydrox/Alum Hydrox 30 Ml Oral.Susp) 30 ml PO Q6H PRN PRN Reason: Heartburn/Nausea Buspirone HCl (Buspirone Hcl 10 Mg Tablet) 30 mg PO BID [facility] Last Admin: 12/09/20 09:19 Dose: 30 mg Documented by: Clonazepam (Clonazepam 1 Mg Tablet) 1 mg PO BID [facility] Last Admin: 12/09/20 08:45 Dose: 1 mg Documented by: Clonidine HCl (Clonidine Hcl 0.1 Mg Tablet) 0.05 mg PO BID PRN; Protocol PRN Reason: Anxiety Clonidine HCl (Clonidine Hcl 0.1 Mg Tablet) 0.1 mg PO BEDTIME PRN; Protocol PRN Reason: Insomnia Fluoxetine HCl (Fluoxetine Hcl 20 Mg Capsule) 80 mg PO DAILY [facility] Last Admin: 12/09/20 08:46 Dose: 80 mg Documented by: Hydroxyzine HCl (Hydroxyzine Hcl 25 Mg Tablet) 25 mg PO BEDTIME PRN PRN Reason: Anxiety Lamotrigine (Lamotrigine 100 Mg Tablet) 200 mg PO BID [facility] Last Admin: 12/09/20 08:45 Dose: 200 mg Documented by: Lorazepam (Lorazepam 1 Mg Tablet) 1 mg PO Q4H PRN PRN Reason: withdrawal Magnesium Hydroxide (Milk Of Magnesia 30 Ml Oral.Susp) 30 ml PO DAILY PRN PRN Reason: Constipation Multivitamins/Vitamin C (Multivitamin Tablet) 1 tab PO DAILY [facility] Last Admin: 12/09/20 08:45 Dose: 1 tab Documented by: Nicotine Polacrilex (Nicotine Polacrilex 2 Mg Gum) 2 mg BUCCAL Q2H PRN PRN Reason: Nicotine Cravings Last Admin: 12/09/20 11:57 Dose: 2 mg Documented by: Olanzapine (Olanzapine 5 Mg Tablet) 5 mg PO DAILY [facility] Last Admin: 12/09/20 08:46 Dose: 5 mg Documented by: Olanzapine (Olanzapine 7.5 Mg Tablet) 15 mg PO BEDTIME [facility] Last Admin: 12/08/20 20:42 Dose: 15 mg Documented by: Propranolol HCl (Propranolol Hcl 20 Mg Tablet) 20 mg PO BID [facility]; Protocol Last Admin: 12/09/20 08:45 Dose: 20 mg Documented by: Thiamine HCl (Thiamine Hcl 100 Mg Tablet) 100 mg PO DAILY [facility] Last Admin: 12/09/20 08:45 Dose: 100 mg Documented by: Trazodone HCl (Trazodone Hcl 50 Mg Tablet) 50 mg PO BEDTIME PRN PRN Reason: Insomnia Allergies Allergies Allergy/AdvReac Type Severity Reaction Status Date / Time mirtazapine [MIRTAZAPINE] Allergy Intermediate UNKNOWN Verified 03/16/20 17:26 sulfamethoxazole Allergy Unknown RASH Verified 03/16/20 17:26 [From BACTRIM] trimethoprim [From BACTRIM] Allergy Unknown RASH Verified 03/16/20 17:26 Mental Status Exam Mental Status Exam Narrative: appropriately dressed and groomed. cooperative with interview. no PMA/PMR. speech nml in amount and loudness, mildly decreased in rate and prosody. nml latency. thoughts linear and logical without evidence of delusions or paranoia. affect constricted, appropriate to context, hypo- intense, non-labile. mood anxious 07/08. denies SI ([facility]RE about 3 days ago). denies SIBI (MRE about 2 weeks ago). denies HI/AVH. Assessment & Plan Assessment & Plan (1) Alcohol use disorder, mild, in controlled environment, abuse: Status: Acute Code(s): F10.10 - Alcohol abuse, uncomplicated Assessment and Plan: ativan per [facility] protocol. declines MAT or rehab. planning to continue with cost recovery technician and AA mtgs after discharge. (2) Major depressive disorder with current active episode: Status: Acute Code(s): F32.9 - Major depressive disorder, single episode, unspecified Assessment and Plan: continue outpt regimen. declines medication changes. believes that once he stops drinking his depression will improve substantially. interested in referral to DBT program. (3) Panic disorder: Status: Acute Code(s): F41.0 - Panic disorder [episodic paroxysmal anxiety] Assessment and Plan: continue outpt regimen. declines medication changes. believes that once he stops drinking his anxiety will improve substantially. Reason for continued inpatient stay Substantial Risk for: harm to self
[2020-12-09] MEDS: OLANZapine 7.5 MG TABLET 15 MG PO (23:04)
[2020-12-09] MEDS: cloNIDine HCL 0.1 MG TABLET PO (23:05)
[2020-12-10 06:00] VITALS: BP 140/90; PULSE 68; TEMP 36.7; O2SAT 98
[2020-12-10] MEDS: OLANZapine 5 MG TABLET PO (09:24)
[2020-12-10] MEDS: lamoTRIgine 100 MG TABLET 200 MG PO ×2 (09:24→22:33)
[2020-12-10] MEDS: busPIRone HCl 10 MG TABLET 30 MG PO ×2 (09:24→22:33)
[2020-12-10] MEDS: Propranolol HCL 20 MG TABLET PO ×2 (09:24→22:34)
[2020-12-10] MEDS: Thiamine HCL 100 MG TABLET PO (09:24)
[2020-12-10] MEDS: FLUoxetine HCl 20 MG CAPSULE 80 MG PO (09:24)
[2020-12-10] MEDS: clonazePAM 1 MG TABLET PO ×2 (09:25→22:33)
[2020-12-10] MEDS: Multivitamin TABLET 1 TAB PO (09:25)
[2020-12-10] MEDS: Nicotine Polacrilex 2 MG GUM BUCCAL (09:30)
--- NOTE | 2020-12-10 10:54 | HO.PSYCHPN ---
Subjective Subjective Date of Service: 12/10/20 Reason For Visit: Bipolar Disorder Interim History: pt reports he is feeling well, would like to engage in IOP for CASSIE, which is a change from his stance yesterday. he denies any safety concerns and feels it is time for him to really focus on the drinking and end it once and for all. he denies any DOLAN, sweats, tremors, n/v/d. he has had no withdrawal symptoms and taken no medication for withdrawal in the past 48 hours. he is interested in discharge tomorrow. he will need to be discharged in the afternoon for his sister to be able to pick him up. 1 pm would work, DC tentatively scheduled for 1 pm. no notable events overnight per review of nursing notes. Mental Status Exam Mental Status Exam Narrative: appropriately dressed and groomed. cooperative with interview. no PMA/PMR. speech nml in amount, rate, and loudness; mildly decreased in prosody. nml latency. thoughts linear and logical without evidence of delusions or paranoia. affect more flexible, appropriate to context, normo-intense, non-labile. denies SI/SIBI. no HI/AVH expressed. Diagnostics Vital Signs (24Hr): Vital Signs - 24 hr 12/09/20 13:00 12/09/20 16:00 12/09/20 19:00 Temperature 97.6 F 98.5 F Pulse Rate 80 65 89 Respiratory Rate 18 17 Blood Pressure 143/93 H 145/89 H Pulse Oximetry 96 96 12/09/20 23:05 12/09/20 23:06 12/10/20 06:00 Temperature 97.7 F 98.0 F Pulse Rate 61 61 68 Respiratory Rate Blood Pressure 144/94 H 144/94 H 140/90 H Pulse Oximetry 96 98 Body Mass Index 31.1 Labs Results: 12/08/20 16:06 12/08/20 16:06 Labs: Laboratory Results - last 48 hr 12/08/20 12/08/20 12/08/20 15:52 15:52 15:52 WBC RBC Hgb Hct MCV MCH MCHC RDW Plt Count MPV Immature Gran % (Auto) Neut % (Auto) Lymph % (Auto) [place] % (Auto) Eos % (Auto) Baso % (Auto) Lymph # (Auto) [place] # (Auto) Eos # (Auto) Baso # (Auto) Abs Immat Gran (auto) Absolute Neuts (auto) Absolute Nucleated RBC Nucleated RBC % (auto) Sodium Potassium Chloride Carbon Dioxide Anion Gap BUN Creatinine Estim Creat Clear Calc Estimated GFR Random Glucose Estimat Average Glucose Hemoglobin A1c % Calcium Magnesium Total Bilirubin Direct Bilirubin AST ALT Alkaline Phosphatase Total Protein Albumin Triglycerides Cholesterol LDL Cholesterol, Calc HDL Cholesterol Vitamin B12 Folate TSH Free T4 Urine Color YELLOW Urine Appearance CLEAR Urine pH 7.5 Ur Specific [place] 1.010 Urine Protein 1+ H Urine Glucose (UA) NEG Urine Ketones NEG Urine Blood NEG Urine Nitrite NEG Ur Leukocyte Esterase NEG Urine RBC 0 Urine WBC 0 Ur Squamous Epith Cells NONE Urine Bacteria TRACE Urine Opiates Screen Not Detected Ur Barbiturates Screen Not Detected Ur Phencyclidine Scrn Not Detected Ur Amphetamines Screen Not Detected U Benzodiazepines Scrn Not Detected Urine Cocaine Screen Not Detected U Marijuana (THC) Screen Not Detected Ethyl Alcohol COVID-19 (COLE) Negative COVID-19 Clin Com See Note 12/08/20 12/08/20 12/08/20 16:06 16:06 16:06 WBC 6.9 RBC 4.98 Hgb 15.7 Hct 45.8 MCV 92.0 MCH 31.5 MCHC 34.3 RDW 12.9 Plt Count 163 D MPV 9.0 L Immature Gran % (Auto) 0.3 Neut % (Auto) 67.9 Lymph % (Auto) 19.5 L [place] % (Auto) 8.2 Eos % (Auto) 3.5 Baso % (Auto) 0.6 Lymph # (Auto) 1.3 [place] # (Auto) 0.6 Eos # (Auto) 0.2 Baso # (Auto) 0.0 Abs Immat Gran (auto) 0.02 Absolute Neuts (auto) 4.7 Absolute Nucleated RBC 0.000 Nucleated RBC % (auto) 0.0 Sodium 139 Potassium 4.2 Chloride 101 Carbon Dioxide 24 Anion Gap 18 BUN 8 L Creatinine 1.07 Estim Creat Clear Calc 122.3 Estimated GFR > 60 Random Glucose 99 Estimat Average Glucose Hemoglobin A1c % Calcium 9.9 D Magnesium 2.0 Total Bilirubin 0.8 Direct Bilirubin 0.3 AST 182 H ALT 252 H Alkaline Phosphatase 130 H D Total Protein 7.5 Albumin 4.7 Triglycerides Cholesterol LDL Cholesterol, Calc HDL Cholesterol Vitamin B12 Folate TSH Free T4 Urine Color Urine Appearance Urine pH Ur Specific [place] Urine Protein Urine Glucose (UA) Urine Ketones Urine Blood Urine Nitrite Ur Leukocyte Esterase Urine RBC Urine WBC Ur Squamous Epith Cells Urine Bacteria Urine Opiates Screen Ur Barbiturates Screen Ur Phencyclidine Scrn Ur Amphetamines Screen U Benzodiazepines Scrn Urine Cocaine Screen U Marijuana (THC) Screen Ethyl Alcohol < 10 COVID-19 (COLE) COVID-19 Greats Com 12/09/20 12/09/20 12/09/20 07:01 07:01 07:01 WBC RBC Hgb Hct MCV MCH MCHC RDW Plt Count MPV Immature Gran % (Auto) Neut % (Auto) Lymph % (Auto) [place] % (Auto) Eos % (Auto) Baso % (Auto) Lymph # (Auto) [place] # (Auto) Eos # (Auto) Baso # (Auto) Abs Immat Gran (auto) Absolute Neuts (auto) Absolute Nucleated RBC Nucleated RBC % (auto) Sodium Potassium Chloride Carbon Dioxide Anion Gap BUN Creatinine Estim Creat Clear Calc Estimated GFR Random Glucose Estimat Average Glucose 91 Hemoglobin A1c % 4.8 Calcium Magnesium 2.1 Total Bilirubin Direct Bilirubin AST ALT Alkaline Phosphatase Total Protein Albumin Triglycerides 300 Cholesterol 272 LDL Cholesterol, Calc 171 HDL Cholesterol 41 Vitamin B12 229 Folate 12.5 TSH 1.40 Free T4 1.06 Urine Color Urine Appearance Urine pH Ur Specific [place] Urine Protein Urine Glucose (UA) Urine Ketones Urine Blood Urine Nitrite Ur Leukocyte Esterase Urine RBC Urine WBC Ur Squamous Epith Cells Urine Bacteria Urine Opiates Screen Ur Barbiturates Screen Ur Phencyclidine Scrn Ur Amphetamines Screen U Benzodiazepines Scrn Urine Cocaine Screen U Marijuana (THC) Screen Ethyl Alcohol COVID-19 (COLE) COVID-19 Clin Com Medications Medications Current Medications Generic Name Dose Route Start Last Admin Trade Name Freq PRN Reason Stop Dose Admin Acetaminophen 650 mg 12/08/20 23:36 Acetaminophen 325 Mg Tablet PO Q6H PRN Headache/Pain Mild Scale (1-3) Al Hydroxide/Mg Hydroxide 30 ml 12/08/20 23:36 Magnesium Hydrox/Alum Hydrox 30 Ml Oral.Susp PO Q6H PRN Heartburn/Nausea Buspirone HCl 30 mg 12/08/20 21:00 12/10/20 09:24 Buspirone Hcl 10 Mg Tablet PO 30 mg BID MARTINEZ Administration Clonazepam 1 mg 12/08/20 21:00 12/10/20 09:25 Clonazepam 1 Mg Tablet PO 1 mg BID MARTINEZ Administration Clonidine HCl 0.05 mg 12/08/20 16:18 Clonidine Hcl 0.1 Mg Tablet PO BID PRN Anxiety Protocol Clonidine HCl 0.1 mg 12/09/20 21:00 12/09/20 23:05 Clonidine Hcl 0.1 Mg Tablet PO 0.1 mg BEDTIME MARTINEZ Administration Protocol Fluoxetine HCl 80 mg 12/09/20 09:00 12/10/20 09:24 Fluoxetine Hcl 20 Mg Capsule PO 80 mg DAILY MARTINEZ Administration Hydroxyzine HCl 25 mg 12/08/20 23:36 Hydroxyzine Hcl 25 Mg Tablet PO BEDTIME PRN Anxiety Lamotrigine 200 mg 12/08/20 21:00 12/10/20 09:24 Lamotrigine 100 Mg Tablet PO 200 mg BID MARTINEZ Administration Lorazepam 1 mg 12/08/20 23:54 Lorazepam 1 Mg Tablet PO Q4H PRN withdrawal Magnesium Hydroxide 30 ml 12/08/20 23:36 Milk Of Magnesia 30 Ml Oral.Susp PO DAILY PRN Constipation Multivitamins/Vitamin C 1 tab 12/09/20 09:00 12/10/20 09:25 Multivitamin Tablet PO 1 tab DAILY MARTINEZ Administration Nicotine Polacrilex 2 mg 12/08/20 16:07 12/10/20 09:30 Nicotine Polacrilex 2 Mg Gum BUCCAL 2 mg Q2H PRN Administration Nicotine Cravings Olanzapine 5 mg 12/09/20 09:00 12/10/20 09:24 Olanzapine 5 Mg Tablet PO 5 mg DAILY MARTINEZ Administration Olanzapine 15 mg 12/08/20 21:00 12/09/20 23:04 Olanzapine 7.5 Mg Tablet PO 15 mg BEDTIME MARTINEZ Administration Propranolol HCl 20 mg 12/08/20 21:00 12/10/20 09:24 Propranolol Hcl 20 Mg Tablet PO 20 mg BID MARTINEZ Administration Protocol Thiamine HCl 100 mg 12/09/20 09:00 12/10/20 09:24 Thiamine Hcl 100 Mg Tablet PO 100 mg DAILY MARTINEZ Administration Trazodone HCl 50 mg 12/08/20 23:36 Trazodone Hcl 50 Mg Tablet PO BEDTIME PRN Insomnia Allergies Allergies Allergy/AdvReac Type Severity Reaction Status Date / Time mirtazapine [MIRTAZAPINE] Allergy Intermediate UNKNOWN Verified 03/16/20 17:26 sulfamethoxazole Allergy Unknown RASH Verified 03/16/20 17:26 [From BACTRIM] trimethoprim [From BACTRIM] Allergy Unknown RASH Verified 03/16/20 17:26 Assessment & Plan Assessment & Plan (1) Alcohol use disorder, mild, in controlled environment, abuse: Status: Acute Code(s): F10.10 - Alcohol abuse, uncomplicated Assessment and Plan: DC CIMT protocol as pt is not in withdrawal. declined MAT or rehab. planning to continue with aircraft launch and recovery technician and AA mtgs after discharge. as of 12/10 asking for referral to [facility] for CASSIE. referral to [facility] underway. (2) Major depressive disorder with current active episode: Status: Acute Code(s): F32.9 - Major depressive disorder, single episode, unspecified Assessment and Plan: continue outpt regimen. declined medication changes. believes that once he stops drinking his depression will improve substantially. interested in referral to DBT program but will pursue at a later date. (3) Panic disorder: Status: Acute Code(s): F41.0 - Panic disorder [episodic paroxysmal anxiety] Assessment and Plan: continue outpt regimen. declines medication changes. believes that once he stops drinking his anxiety will improve substantially. Greater than 50% of the session was spent on counseling and/or coordination of care Reason for contiued inpatient stay Substantial Risk for: harm to self
[2020-12-10] MEDS: Nicotine Polacrilex 2 MG GUM 4 MG BUCCAL (19:06)
[2020-12-10] MEDS: Acetaminophen 325 MG TABLET 650 MG PO (21:01)
[2020-12-10 22:34] VITALS: BP 145/96; PULSE 61
[2020-12-10] MEDS: cloNIDine HCL 0.1 MG TABLET PO (22:34)
[2020-12-10] MEDS: OLANZapine 7.5 MG TABLET 15 MG PO (22:34)
[2020-12-11 06:00] VITALS: BP 156/104; PULSE 70; RESP 16; TEMP 36.4; O2SAT 97
[2020-12-11] MEDS: clonazePAM 1 MG TABLET PO (09:12)
[2020-12-11] MEDS: Multivitamin TABLET 1 TAB PO (09:12)
[2020-12-11] MEDS: lamoTRIgine 100 MG TABLET 200 MG PO (09:12)
[2020-12-11] MEDS: Propranolol HCL 20 MG TABLET PO (09:12)
[2020-12-11] MEDS: OLANZapine 5 MG TABLET PO (09:12)
[2020-12-11] MEDS: FLUoxetine HCl 20 MG CAPSULE 80 MG PO (09:12)
[2020-12-11] MEDS: busPIRone HCl 10 MG TABLET 30 MG PO (09:13)
[2020-12-11] MEDS: Thiamine HCL 100 MG TABLET PO (09:13)
--- NOTE | 2020-12-11 11:20 | P.DS_ITS ---
DS: Providers Provider Date of Service: 12/11/20 Date of admission: 12/08/20 23:36 Primary care physician: Unknown Physician DS: Diagnosis Discharge Diagnosis (1) Alcohol use disorder, mild, in controlled environment, abuse: Status: Acute (2) Major depressive disorder with current active episode: Status: Acute (3) Panic disorder: Status: Acute DS: Medications Discharge Medications Home Medications: Home Medications Medication Instructions Recorded Confirmed buspirone 1 tab PO BID 12/08/20 12/08/20 clonidine HCl 0.05 mg PO BID PRN 12/08/20 12/08/20 clonidine HCl 0.1 mg PO BEDTIME PRN 12/08/20 12/08/20 fluoxetine 80 mg PO DAILY 12/08/20 12/08/20 propranolol 1 tab PO BID 12/08/20 12/08/20 Previous Rx's Medication Instructions Recorded clonazepam [Klonopin] 1 mg PO BID #60 tab 03/23/20 lamotrigine [Lamictal] 200 mg PO BID #60 tab 03/23/20 olanzapine 5 mg PO DAILY #30 tab 03/23/20 olanzapine 15 mg PO BEDTIME #30 tab 03/23/20 multivitamin with folic acid 1 tab PO DAILY 30 Days #30 tab 12/11/20 [Tab-A-Ninoska] nicotine (polacrilex) 4 mg BUCCAL Q2H PRN 30 Days #120 ea 12/11/20 Discharge Plan Discharge Patient Disposition: Home, Self-Care Discharge Diagnosis: Alcohol Use Disorder, Moderate Referrals: Ana Lilia Mcfarlane (therapy) [Other] - 12/15/20 12:00 pm (In Person Appointment) Dr. Velazquez (psychiatry) [Other] - 12/28/20 1:30 pm (Telehealth Appointment) [facility] [Other] - 12/22/20 1:30 pm (they will call your cell phone to remind you of your appointment. ) Physician,Unknown [Primary Care Provider] - 1 Week Discharge Medications: New nicotine (polacrilex) 2 mg Gum 4 mg buccal Q2H PRN (Reason: Nicotine Cravings) 30 Days Qty: 120 RF: 0 multivitamin with folic acid [Tab-A-Ninoska] 400 mcg Tablet 1 tab PO DAILY 30 Days Qty: 30 RF: 0 Continued fluoxetine 40 mg capsule 80 mg PO DAILY RF: 0 clonidine HCl 0.1 mg tablet 0.05 mg PO BID PRN (Reason: Anxiety) RF: 0 buspirone 30 mg tablet 1 tab PO BID RF: 0 propranolol 20 mg tablet 1 tab PO BID RF: 0 clonidine HCl 0.1 mg tablet 0.1 mg PO BEDTIME PRN (Reason: Insomnia) RF: 0 olanzapine 10 mg Tablet 15 mg PO BEDTIME Qty: 30 RF: 0 lamotrigine [Lamictal] 200 mg Tablet 200 mg PO BID Qty: 60 RF: 0 olanzapine 5 mg Tablet 5 mg PO DAILY Qty: 30 RF: 0 clonazepam [Klonopin] 1 mg Tablet 1 mg PO BID Qty: 60 RF: 0 Discharge Orders: Discharge Order (Routine); Ordered 12/11/20 Ordered By: Devyn Thorpe Diet: regular diet Activity on Discharge: As tolerated Stand Alone Forms: Patient Portal Discharge page Care Plan Goals: remain abstinent from alcohol, reduce and discontinue cigarette use, maintain positive mood state in general. Health Concerns: hypertension. 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 be sure to discuss your history of alcohol consumption in the conversation, as it is relevant for this issue. Plan of Treatment: continue to take medications as prescribed, attend appointments as scheduled. engage in substance abuse IOP. Assessment: suicidal thoughts have resolved, pt is not suffering alcohol withdrawal symptoms after several days in the hospital. pt is assessed as safe and appropriate for discharge. Discharge Date/Time: 12/11/20 12:59 Mental Status Exam Mental Status Exam Narrative: appropriately dressed and groomed. cooperative with interview. no PMA/PMR. speech nml in amount, rate, and loudness; mildly decreased in prosody. nml latency. thoughts linear and logical without evidence of delusions or paranoia. affect full range, appropriate to context, normo-intense, non-labile. denies SI/SIBI/HI/AVH. Data Data Completed and Pending Completed studies during hospitalization [Text1]: 12/08/20 12/08/20 12/08/20 15:52 15:52 15:52 WBC RBC Hgb Hct MCV MCH MCHC RDW Plt Count MPV Immature Gran % (Auto) Neut % (Auto) Lymph % (Auto) [place] % (Auto) Eos % (Auto) Baso % (Auto) Lymph # (Auto) [place] # (Auto) Eos # (Auto) Baso # (Auto) Abs Immat Gran (auto) Absolute Neuts (auto) Absolute Nucleated RBC Nucleated RBC % (auto) Sodium Potassium Chloride Carbon Dioxide Anion Gap BUN Creatinine Estim Creat Clear Calc Estimated GFR Random Glucose Estimat Average Glucose Hemoglobin A1c % Calcium Magnesium Total Bilirubin Direct Bilirubin AST ALT Alkaline Phosphatase Total Protein Albumin Triglycerides Cholesterol LDL Cholesterol, Calc HDL Cholesterol Vitamin B12 Folate TSH Free T4 Urine Color YELLOW Urine Appearance CLEAR Urine pH 7.5 Ur Specific [place] 1.010 Urine Protein 1+ H Urine Glucose (UA) NEG Urine Ketones NEG Urine Blood NEG Urine Nitrite NEG Ur Leukocyte Esterase NEG Urine RBC 0 Urine WBC 0 Ur Squamous Epith Cells NONE Urine Bacteria TRACE Urine Opiates Screen Not Detected Ur Barbiturates Screen Not Detected Ur Phencyclidine Scrn Not Detected Ur Amphetamines Screen Not Detected U Benzodiazepines Scrn Not Detected Urine Cocaine Screen Not Detected U Marijuana (THC) Screen Not Detected Ethyl Alcohol COVID-19 (COLE) Negative COVID-19 Clin Com See Note 12/08/20 12/08/20 12/08/20 16:06 16:06 16:06 WBC 6.9 RBC 4.98 Hgb 15.7 Hct 45.8 MCV 92.0 MCH 31.5 MCHC 34.3 RDW 12.9 Plt Count 163 D MPV 9.0 L Immature Gran % (Auto) 0.3 Neut % (Auto) 67.9 Lymph % (Auto) 19.5 L [place] % (Auto) 8.2 Eos % (Auto) 3.5 Baso % (Auto) 0.6 Lymph # (Auto) 1.3 [place] # (Auto) 0.6 Eos # (Auto) 0.2 Baso # (Auto) 0.0 Abs Immat Gran (auto) 0.02 Absolute Neuts (auto) 4.7 Absolute Nucleated RBC 0.000 Nucleated RBC % (auto) 0.0 Sodium 139 Potassium 4.2 Chloride 101 Carbon Dioxide 24 Anion Gap 18 BUN 8 L Creatinine 1.07 Estim Creat Clear Calc 122.3 Estimated GFR > 60 Random Glucose 99 Estimat Average Glucose Hemoglobin A1c % Calcium 9.9 D Magnesium 2.0 Total Bilirubin 0.8 Direct Bilirubin 0.3 AST 182 H ALT 252 H Alkaline Phosphatase 130 H D Total Protein 7.5 Albumin 4.7 Triglycerides Cholesterol LDL Cholesterol, Calc HDL Cholesterol Vitamin B12 Folate TSH Free T4 Urine Color Urine Appearance Urine pH Ur Specific [place] Urine Protein Urine Glucose (UA) Urine Ketones Urine Blood Urine Nitrite Ur Leukocyte Esterase Urine RBC Urine WBC Ur Squamous Epith Cells Urine Bacteria Urine Opiates Screen Ur Barbiturates Screen Ur Phencyclidine Scrn Ur Amphetamines Screen U Benzodiazepines Scrn Urine Cocaine Screen U Marijuana (THC) Screen Ethyl Alcohol < 10 COVID-19 (COLE) COVID-19 Clin Com 12/09/20 12/09/20 12/09/20 07:01 07:01 07:01 WBC RBC Hgb Hct MCV MCH MCHC RDW Plt Count MPV Immature Gran % (Auto) Neut % (Auto) Lymph % (Auto) [place] % (Auto) Eos % (Auto) Baso % (Auto) Lymph # (Auto) [place] # (Auto) Eos # (Auto) Baso # (Auto) Abs Immat Gran (auto) Absolute Neuts (auto) Absolute Nucleated RBC Nucleated RBC % (auto) Sodium Potassium Chloride Carbon Dioxide Anion Gap BUN Creatinine Estim Creat Clear Calc Estimated GFR Random Glucose Estimat Average Glucose 91 Hemoglobin A1c % 4.8 Calcium Magnesium 2.1 Total Bilirubin Direct Bilirubin AST ALT Alkaline Phosphatase Total Protein Albumin Triglycerides 300 Cholesterol 272 LDL Cholesterol, Calc 171 HDL Cholesterol 41 Vitamin B12 229 Folate 12.5 TSH 1.40 Free T4 1.06 Urine Color Urine Appearance Urine pH Ur Specific [place] Urine Protein Urine Glucose (UA) Urine Ketones Urine Blood Urine Nitrite Ur Leukocyte Esterase Urine RBC Urine WBC Ur Squamous Epith Cells Urine Bacteria Urine Opiates Screen Ur Barbiturates Screen Ur Phencyclidine Scrn Ur Amphetamines Screen U Benzodiazepines Scrn Urine Cocaine Screen U Marijuana (THC) Screen Ethyl Alcohol COVID-19 (COLE) COVID-19 Clin Com DS: Summary Hospital Course Hospital Course: emmy Thorpe MD 12/09 Admission note: per crisis colin, pt was referred to [facility] Crisis team by his therapist after he reported SI to her. he reported to her that for about a week he had been having suicidal thoughts with plan to hit himself in the head with a hammer or cut his wrists. he had been having a substantial increase in anxiety and panic attacks . he reported to crisis staff that he had been feeling very overwhelmed and waking up every day crying and had started to use alcohol to manage his symptoms, which has only exacerbated his anxiety and depression. on interview with pt supports the narrative above and really seems to emphasize that his regimen does him well when he is not drinking and that when he is drinking it ends up backfiring and making his depression and anxiety worse. he would like to get and stay sober and then see how his mood and anxiety go. he declines to consider any medication changes currently, including MAT for AUD. he is educated re antabuse and naltrexone, however, in case he decides to change his mind. he also declines alcohol rehab treatment , stating he has a dance coach and will be going to AA, which he feels is an adequate intervention. educates pt about DBT, and he expresses strong interest in referral to DBT program. he denies DOLAN, sweats, tremors, n/v/d, severe anxiety or panic today. reports most recent SI was a few days ago, and it is ego dystonic. his most recent SIBI was about 2 weewks ago. he would like to get detoxed from alcohol and then discharged with DBT referral. Past Psychiatric History: Hospital stays: Last admission to 2013. He had ECT at that time. has had at least 3 hosps. also has done PHP at least once, which he found helpful, and some [facility] stays. no h/o suicide attempts (but did place a plastic bag over his head during [facility] stay once). h/o SIB - cutting. has required stitches in the past. also slapping himself in the face. Therapist is HOANG Pang. Psychiatrist is HOANG Sanchez. per Maurilio ZULETA 12/10 Progress Note: pt reports he is feeling well, would like to engage in IOP for CASSIE, which is a change from his stance yesterday. he denies any safety concerns and feels it is time for him to really focus on the drinking and end it once and for all. he denies any DOLAN, sweats, tremors, n/v/d. he has had no withdrawal symptoms and ta ricarda no medication for withdrawal in the past 48 hours. he is interested in discharge tomorrow. he will need to be discharged in the afternoon for his sister to be able to pick him up. 1 pm would work, DC tentatively scheduled for 1 pm. no notable events overnight per review of nursing notes. 12/11: pt reports he continues to feel well, both physically and mentally. denies any withdrawal symptoms such as DOLAN, sweats, tremors, n/v/d. states he slept well, denies any safety concerns. his elevtaed BP is noted and discussed with pt. he plans to be in touch with his molybdenum steamer operator and/or PCP shortly after discharge to be seen and have his BP managed. per staff, pt has been visible, social, pleasant, with BPs in the 150s - 170s systolic and 100s diastolic. he plans to dishcrage today at 1 pm, when his sister will pick him up. will be engaging in [facility] after discharge. Precis: (1) Alcohol use disorder, mild, in controlled environment, abuse: DCed CIWA protocol as pt is not in withdrawal. declined MAT or rehab. planning to continue with dance coach and AA mtgs after discharge. as of 12/10 asking for referral to IOP for CASSIE. referral to [facility] completed. (2) Major depressive disorder with current active episode: continued outpt regimen. declined medication changes. believes that once he stops drinking his depression will improve substantially. interested in refe rral to DBT program but will pursue at a later date. (3) Panic disorder: continued outpt regimen. declined medication changes. believes that once he stops drinking his anxiety will improve substantially. Time spent discussing smoking cessation with patient: 3 to 10 minutes Time Spent with Patient Time attestation: Total time spent providing and/or coordinating discharge services: Time spent: Greater than 30 minutes
== END 2020-12-11 12:59 | disposition home or self-care (01) | DRG 885 ==
LOC: HO.ED 16:03 → HO.PADLT16 23:47
PROVIDERS: Physician Assistant; Admitting Provider Clinical Nurse Specialist Psychiatric/Mental Health, Adult; Emergency Provider Emergency Medicine; Visit Provider Psychiatry & Neurology Psychiatry
DX: F33.9 Major depressive disorder, recurrent, unspecified (principal); R45.851 Suicidal ideations; I10 Essential (primary) hypertension; F10.10 Alcohol abuse, uncomplicated; F41.0 Panic disorder [episodic paroxysmal anxiety]; Z20.822 Contact with and (suspected) exposure to COVID-19; F17.210 Nicotine dependence, cigarettes, uncomplicated; Z71.6 Tobacco abuse counseling; Z91.5 Personal history of self-harm; Z88.2 Allergy status to sulfonamides; Z79.899 Other long term (current) drug therapy
CPT/HCPCS: 36415; 80048; 80061; 80076; 80307; 81001; 82077; 82607; 82746; 83036; 83735; 84439; 84443; 85025; 87635; 93005; 99285

== ENCOUNTER 2021-12-21 11:23 | Emergency (ER) | payer MEDICARE, MEDICAID, SELFPAY ==
--- NOTE | 2021-12-21 | ECG_ITS ---
Test Reason : weakness/palpitations Blood Pressure : / mmHG Vent. Rate : 064 BPM Atrial Rate : 064 BPM P-R Int : 150 ms QRS Dur : 094 ms QT Int : 420 ms P-R-T Axes : 072 -13 015 degrees QTc Int : 433 ms Normal sinus rhythm ST & T wave abnormality, consider anterior ischemia Abnormal ECG When compared with ECG of 08-DEC-2020 23:02, No significant change was found Referred By: Generic ED Physician Electronically Signed By:BRITTNY TELLO
[2021-12-21 11:28] VITALS: BP 172/120; PULSE 70; O2SAT 95
[2021-12-21 12:10] VITALS: BP 135/86; PULSE 70; RESP 18; TEMP 37.2; O2SAT 95; BMI 36.6
[2021-12-21 12:29] LABS: MANUAL DIFF FLAG NO
[2021-12-21 12:31] LABS: Basophils Absolute Auto 0.1 X10*3/uL (0.0-0.2); Basophils Percent Auto 0.7 % (0-2); Eosinophils Absolute Auto 0.3 X10*3/uL (0.0-0.4); Eosinophils Percent Auto 4.9 % (0-4); Hematocrit 44.9 % (42.0-52.0); Hemoglobin 15.6 g/dl (14.0-18.0); Imm Gran Abs Auto 0.02 X10*3/uL (0.00-0.03); Imm Gran Pct Auto 0.3 % (0.0-0.4); Lymphocytes Absolute Auto 1.3 X10*3/uL (1.2-4.9); Lymphocytes Percent Auto 18.5 % (20-40); Mean Corpuscular HGB Conc 34.7 g/dl (31.0-36.0); Mean Corpuscular Hemoglobin 32.3 pg (27.0-33.0); Mean Platelet Volume 9.1 fL (9.4-12.4); Monocytes Absolute Auto 0.5 X10*3/uL (0.1-1.2); Monocytes Percent Auto 7.2 % (2-11); Neutrophils Absolute Auto 4.7 x10*3/uL (2.0-8.3); Neutrophils Percent Auto 68.4 % (45-73); Platelet Count 216 X10*3/uL (160-400); Red Blood Count 4.83 X10*6/uL (4.60-5.80); Red Cell Distribution Width 12.6 % (11.0-16.0); White Blood Count 6.9 X10*3/uL (4.8-10.8)
[2021-12-21 12:53] VITALS: BP 148/84; PULSE 67; RESP 16; TEMP 36.9; O2SAT 97
[2021-12-21 12:54] LABS: Alanine Aminotransferase 206 U/L (0-40); Alkaline Phosphatase 94 U/L (39-117); Anion Gap 14 (12-20); Aspartate Amino Transferase 166 U/L (5-37); Bilirubin Total 1.1 mg/dL (0.0-1.0); Blood Urea Nitrogen 12 mg/dL (9-16); Calcium 9.9 mg/dL (8.4-10.2); Carbon Dioxide 28 mmol/L (22-29); Chloride 104 mmol/L (96-108); Creatinine Clr Calc Pharmacy 113.4; Estimated Glomerular Filt Rate > 60; Glucose Random 110 mg/dL (60-115); Potassium 4.7 mmol/L (3.3-5.1); Sodium 141 mmol/L (135-145); Total Protein 7.7 g/dL (6.5-8.0)
[2021-12-21 13:25] LABS: MANUAL DIFF FLAG NO
[2021-12-21 13:30] LABS: Basophils Absolute Auto 0.1 X10*3/uL (0.0-0.2); Eosinophils Absolute Auto 0.3 X10*3/uL (0.0-0.4); Eosinophils Percent Auto 4.5 % (0-4); Hematocrit 44.8 % (42.0-52.0); Hemoglobin 15.4 g/dl (14.0-18.0); Imm Gran Abs Auto 0.02 X10*3/uL (0.00-0.03); Imm Gran Pct Auto 0.3 % (0.0-0.4); Lymphocytes Absolute Auto 1.4 X10*3/uL (1.2-4.9); Lymphocytes Percent Auto 18.9 % (20-40); Mean Corpuscular HGB Conc 34.4 g/dl (31.0-36.0); Mean Corpuscular Volume 93.1 fL (80.0-98.0); Mean Platelet Volume 9.2 fL (9.4-12.4); Monocytes Absolute Auto 0.6 X10*3/uL (0.1-1.2); Monocytes Percent Auto 8.5 % (2-11); Neutrophils Absolute Auto 4.8 x10*3/uL (2.0-8.3); Neutrophils Percent Auto 66.8 % (45-73); Platelet Count 224 X10*3/uL (160-400); Red Blood Count 4.81 X10*6/uL (4.60-5.80); Red Cell Distribution Width 12.7 % (11.0-16.0); White Blood Count 7.2 X10*3/uL (4.8-10.8)
[2021-12-21 13:34] LABS: Appearance Urine CLEAR; Color Urine DK YELLOW; Glucose Urine UA NEG (NEG); Leukocyte Esterase Urine NEG (NEG); Nitrite Urine NEG (NEG); Specific Gravity - Urine 1.015 (1.005-1.025); UACC Culture Trigger NO; Urine Blood NEG (NEG); Urine Ketones 5 MG/DL (NEG); Urine Protein 1+ MG/DL (NEG-TRACE)
[2021-12-21 13:47] LABS: Troponin-I High Sensitivity < 3.5 ng/L (<3.5-35.0)
--- NOTE | 2021-12-21 13:56 | ED_ITS ---
HPI - General Adult General Chief complaint: Seizure Stated complaint: weakness , questions seizure Time Seen by Provider: 12/21/21 12:26 Source: patient Mode of arrival: ambulatory Limitations: no limitations History of Present Illness HPI narrative: Patient woke up in the middle of night with palpitations. This morning when he woke up he was shaking. He denies prior seizure. States that he has had panic attacks in the past, with palpitations, but never had shaking, no urinary incontinence or fecal incontinence. States that his mother a month ago and he lived with her. Onset (ago): hour(s) Radiation: non-radiation Severity: mild Associated symptoms: denies other symptoms Treatments prior to arrival: none Related Data Home Medications Medication Instructions Recorded Confirmed buspirone 30 mg tablet 1 tab PO BID 12/08/20 12/08/20 clonidine HCl 0.1 mg tablet 0.05 mg PO BID PRN Anxiety 12/08/20 12/08/20 clonidine HCl 0.1 mg tablet 0.1 mg PO BEDTIME PRN Insomnia 12/08/20 12/08/20 fluoxetine 40 mg capsule 80 mg PO DAILY 12/08/20 12/08/20 propranolol 20 mg tablet 1 tab PO BID 12/08/20 12/08/20 Previous Rx's Medication Instructions Recorded clonazepam 1 mg tablet (Klonopin) 1 mg PO BID #60 tabs 03/23/20 lamotrigine 200 mg tablet 200 mg PO BID #60 tabs 03/23/20 (Lamictal) olanzapine 10 mg tablet 15 mg PO BEDTIME #30 tabs 03/23/20 olanzapine 5 mg tablet 5 mg PO DAILY #30 tabs 03/23/20 multivitamin with folic acid 400 1 tab PO DAILY 30 days #30 tabs 12/11/20 mcg tablet (Tab-A-Ninoska) nicotine (polacrilex) 2 mg gum 4 mg buccal Q2H PRN Nicotine 12/11/20 Cravings 30 days #120 ea Allergies Allergy/AdvReac Type Severity Reaction Status Date / Time mirtazapine [MIRTAZAPINE] Allergy Intermediate UNKNOWN Verified 12/21/21 12:10 sulfamethoxazole Allergy Unknown RASH Verified 12/21/21 12:10 [From BACTRIM] trimethoprim [From BACTRIM] Allergy Unknown RASH Verified 12/21/21 12:10 Review of Systems Constitutional: Constitutional: Reports no additional constitutional complaints Eyes: Eyes: Reports no additional eye complaints ENT: Denies dizziness Cardiovascular: Cardiovascular: Reports no additional cardiovascular complaints Respiratory: Respiratory: Reports as per HPI Gastrointestinal: Gastrointestinal: Reports no additional gastrointestinal complaints Musculoskeletal: Musculoskeletal: Reports no additional musculoskeletal complaints Integumentary/Breasts: Skin/Breast: Denies rash Neurologic: Reports system reviewed and no additional complaints, except as documented, Denies dizziness and Denies Sensory deficit (Neuro) Psychiatric: Psychiatric: Denies anxiety [facility] Past Medical History Medical History Alcohol use disorder, mild, in controlled environment, abuse HTN (hypertension) Tachycardia Transaminitis Social History Social History Household Members: Family Housing: House Do you presently have visiting nurse or other home services: No Alcohol intake: current Alcohol intake frequency: 0-2 drinks per day Alcohol type: hard liquor Patient Tobacco Use Status: Current everyday Tobacco user Tobacco use type: Cigarette Cigarette Packs Per Day: 0.5 Cigarettes Per Day: 10.0 Years Smoked: 12 e-Cigarette/Vaping Use: Currently Using Second Hand Smoke Exposure: Yes Advance Directives: No Advance Directives Information Provided: No service: No Sexual orientation: Don't Know Physical Exam ED Vital Signs: Vital Signs - 24 hr 12/21/21 12:10 12/21/21 12:53 12/21/21 14:42 Temperature 98.9 F 98.5 F 97.4 F Pulse Rate 70 67 59 Respiratory Rate 18 16 11 L Blood Pressure 135/86 148/84 H 113/62 Pulse Oximetry 95 97 97 Oxygen Delivery Method Room Air Room Air Room Air BMI result Body Mass Index 36.6 Const General: healthy appearing Nutritional Appearance: average body habitus Orientation/consciousness: oriented to person and patient oriented x3 Limitations: no limitations HENMT Head: Yes normal to inspection Ears: external ears normal General nose exam: Normal external nose present Mouth: Normal oral and palatal mucosa present and oropharynx normal Throat: Yes posterior oropharynx normal Eyes General: appearance normal, both eyes and all related structures Neck Neck: Yes normal visual inspection Chest Chest palpation & inspection: normal inspection of the chest Resp Auscultation: clear to auscultation bilaterally Cardio Jugular venous distension: no JVD Rate: regular rate Rhythm: regular rhythm Heart sounds: S1 normal heart sound present and S2 normal heart sound present GI Inspection: Yes normal to inspection Palpation (GI): Soft to palpation, nontender and No hepatosplenomegaly present Auscultation: normal bowel sounds General: Yes no CVA tenderness Back/Spine/Pelvis Back: no CVA tenderness Skin General skin exam: no rashes or lesions noted Neuro General: oriented to person and patient oriented x3 Cranial nerves: Yes CN's II-XII intact bilaterally Motor exam (neuro): 5/5 motor strength present throughout Sensory Exam: No Sensory deficit (Neuro) Extrem General: Yes normal to inspection Psych Appearance: grossly normal Course Reevaluation(s) Reevaluation #1: patient with no evidence of seizure. Mild chronic liver enzyme elevations. No cardiac evidence of arrythmia Time: 16:05 Medical Decision Making Lab Data Result diagrams: 12/21/21 13:19 12/21/21 13:18 Labs: Lab Results 12/21/21 12/21/21 12/21/21 Range/Units 12:23 12:23 13:18 WBC 6.9 (4.8-10.8) X10*3/uL RBC 4.83 (4.60-5.80) X10*6/uL Hgb 15.6 (14.0-18.0) g/dl Hct 44.9 (42.0-52.0) % MCV 93.0 (80.0-98.0) fL MCH 32.3 (27.0-33.0) pg MCHC 34.7 (31.0-36.0) g/dl RDW 12.6 (11.0-16.0) % Plt Count 216 (160-400) X10*3/uL MPV 9.1 L (9.4-12.4) fL Immature Gran % (Auto) 0.3 (0.0-0.4) % Neut % (Auto) 68.4 (45-73) % Lymph % (Auto) 18.5 L (20-40) % [place] % (Auto) 7.2 (2-11) % Eos % (Auto) 4.9 H (0-4) % Baso % (Auto) 0.7 (0-2) % Lymph # (Auto) 1.3 (1.2-4.9) X10*3/uL [place] # (Auto) 0.5 (0.1-1.2) X10*3/uL Eos # (Auto) 0.3 (0.0-0.4) X10*3/uL Baso # (Auto) 0.1 (0.0-0.2) X10*3/uL Abs Immat Gran (auto) 0.02 (0.00-0.03) X10*3/uL Absolute Neuts (auto) 4.7 (2.0-8.3) x10*3/uL Absolute Nucleated RBC 0.000 (0.0-0.012) X10*3/uL Nucleated RBC % (auto) 0.0 (0.0-0.2) /100WBC Sodium 141 141 (135-145) mmol/L Potassium 4.7 4.5 (3.3-5.1) mmol/L Chloride 104 103 (96-108) mmol/L Carbon Dioxide 28 29 (22-29) mmol/L Anion Gap 14 14 (12-20) BUN 12 13 (9-16) mg/dL Creatinine 1.17 1.13 (0.5-1.4) mg/dL Estim Creat Clear Calc 113.4 117.4 Estimated GFR > 60 > 60 Random Glucose 110 109 (60-115) mg/dL Lactic Acid (0.5-2.0) mmol/L Calcium 9.9 10.2 (8.4-10.2) mg/dL Magnesium 2.0 (1.6-2.6) mg/dL Total Bilirubin 1.1 H 1.0 (0.0-1.0) mg/dL Direct Bilirubin 0.4 (0.0-0.5) mg/dL AST 166 H 162 H (5-37) U/L ALT 206 H 207 H (0-40) U/L Alkaline Phosphatase 94 D 93 (39-117) U/L Troponin I High Sens (<3.5-35.0) ng/L Total Protein 7.7 7.6 (6.5-8.0) g/dL Albumin 5.0 5.0 (3.5-5.0) g/dL Urine Color Urine Appearance Urine pH (5.0-8.0) Ur Specific [place] (1.005-1.025) Urine Protein (NEG-TRACE) MG/DL Urine Glucose (UA) (NEG) MG/DL Urine Ketones (NEG) MG/DL Urine Blood (NEG) Urine Nitrite (NEG) Ur Leukocyte Esterase (NEG) Urine RBC (0) /HPF Urine WBC (0-4) /HPF Ur Squamous Epith Cells /LPF Amorphous Sediment /LPF Urine Bacteria /LPF Urine Mucus /LPF Urine Opiates Screen (Not Detect) Urine Fentanyl Screen (Not Detect) Ur Barbiturates Screen (Not Detect) Ur Phencyclidine Scrn (Not Detect) Ur Amphetamines Screen (Not Detect) U Benzodiazepines Scrn (Not Detect) Urine Cocaine Screen (Not Detect) U Marijuana (THC) Screen (Not Detect) Ethyl Alcohol mg/dL 12/21/21 12/21/21 12/21/21 Range/Units 13:18 13:19 13:19 WBC 7.2 (4.8-10.8) X10*3/uL RBC 4.81 (4.60-5.80) X10*6/uL Hgb 15.4 (14.0-18.0) g/dl Hct 44.8 (42.0-52.0) % MCV 93.1 (80.0-98.0) fL MCH 32.0 (27.0-33.0) pg MCHC 34.4 (31.0-36.0) g/dl RDW 12.7 (11.0-16.0) % Plt Count 224 (160-400) X10*3/uL MPV 9.2 L (9.4-12.4) fL Immature Gran % (Auto) 0.3 (0.0-0.4) % Neut % (Auto) 66.8 (45-73) % Lymph % (Auto) 18.9 L (20-40) % [place] % (Auto) 8.5 (2-11) % Eos % (Auto) 4.5 H (0-4) % Baso % (Auto) 1.0 (0-2) % Lymph # (Auto) 1.4 (1.2-4.9) X10*3/uL [place] # (Auto) 0.6 (0.1-1.2) X10*3/uL Eos # (Auto) 0.3 (0.0-0.4) X10*3/uL Baso # (Auto) 0.1 (0.0-0.2) X10*3/uL Abs Immat Gran (auto) 0.02 (0.00-0.03) X10*3/uL Absolute Neuts (auto) 4.8 (2.0-8.3) x10*3/uL Absolute Nucleated RBC 0.000 (0.0-0.012) X10*3/uL Nucleated RBC % (auto) 0.0 (0.0-0.2) /100WBC Sodium (135-145) mmol/L Potassium (3.3-5.1) mmol/L Chloride (96-108) mmol/L Carbon Dioxide (22-29) mmol/L Anion Gap (12-20) BUN (9-16) mg/dL Creatinine (0.5-1.4) mg/dL Estim Creat Clear Calc Estimated GFR Random Glucose (60-115) mg/dL Lactic Acid 1.3 (0.5-2.0) mmol/L Calcium (8.4-10.2) mg/dL Magnesium (1.6-2.6) mg/dL Total Bilirubin (0.0-1.0) mg/dL Direct Bilirubin (0.0-0.5) mg/dL AST (5-37) U/L ALT (0-40) U/L Alkaline Phosphatase (39-117) U/L Troponin I High Sens (<3.5-35.0) ng/L Total Protein (6.5-8.0) g/dL Albumin (3.5-5.0) g/dL Urine Color Urine Appearance Urine pH (5.0-8.0) Ur Specific [place] (1.005-1.025) Urine Protein (NEG-TRACE) MG/DL Urine Glucose (UA) (NEG) MG/DL Urine Ketones (NEG) MG/DL Urine Blood (NEG) Urine Nitrite (NEG) Ur Leukocyte Esterase (NEG) Urine RBC (0) /HPF Urine WBC (0-4) /HPF Ur Squamous Epith Cells /LPF Amorphous Sediment /LPF Urine Bacteria /LPF Urine Mucus /LPF Urine Opiates Screen (Not Detect) Urine Fentanyl Screen (Not Detect) Ur Barbiturates Screen (Not Detect) Ur Phencyclidine Scrn (Not Detect) Ur Amphetamines Screen (Not Detect) U Benzodiazepines Scrn (Not Detect) Urine Cocaine Screen (Not Detect) U Marijuana (THC) Screen (Not Detect) Ethyl Alcohol < 10 mg/dL 12/21/21 12/21/21 12/21/21 Range/Units 13:19 13:20 13:20 WBC (4.8-10.8) X10*3/uL RBC (4.60-5.80) X10*6/uL Hgb (14.0-18.0) g/dl Hct (42.0-52.0) % MCV (80.0-98.0) fL MCH (27.0-33.0) pg MCHC (31.0-36.0) g/dl RDW (11.0-16.0) % Plt Count (160-400) X10*3/uL MPV (9.4-12.4) fL Immature Gran % (Auto) (0.0-0.4) % Neut % (Auto) (45-73) % Lymph % (Auto) (20-40) % [place] % (Auto) (2-11) % Eos % (Auto) (0-4) % Baso % (Auto) (0-2) % Lymph # (Auto) (1.2-4.9) X10*3/uL [place] # (Auto) (0.1-1.2) X10*3/uL Eos # (Auto) (0.0-0.4) X10*3/uL Baso # (Auto) (0.0-0.2) X10*3/uL Abs Immat Gran (auto) (0.00-0.03) X10*3/uL Absolute Neuts (auto) (2.0-8.3) x10*3/uL Absolute Nucleated RBC (0.0-0.012) X10*3/uL Nucleated RBC % (auto) (0.0-0.2) /100WBC Sodium (135-145) mmol/L Potassium (3.3-5.1) mmol/L Chloride (96-108) mmol/L Carbon Dioxide (22-29) mmol/L Anion Gap (12-20) BUN (9-16) mg/dL Creatinine (0.5-1.4) mg/dL Estim Creat Clear Calc Estimated GFR Random Glucose (60-115) mg/dL Lactic Acid (0.5-2.0) mmol/L Calcium (8.4-10.2) mg/dL Magnesium (1.6-2.6) mg/dL Total Bilirubin (0.0-1.0) mg/dL Direct Bilirubin (0.0-0.5) mg/dL AST (5-37) U/L ALT (0-40) U/L Alkaline Phosphatase (39-117) U/L Troponin I High Sens < 3.5 (<3.5-35.0) ng/L Total Protein (6.5-8.0) g/dL Albumin (3.5-5.0) g/dL Urine Color DK YELLOW Urine Appearance CLEAR Urine pH 8.0 (5.0-8.0) Ur Specific [place] 1.015 (1.005-1.025) Urine Protein 1+ H (NEG-TRACE) MG/DL Urine Glucose (UA) NEG (NEG) MG/DL Urine Ketones 5 (NEG) MG/DL Urine Blood NEG (NEG) Urine Nitrite NEG (NEG) Ur Leukocyte Esterase NEG (NEG) Urine RBC 0 (0) /HPF Urine WBC 0-2 (0-4) /HPF Ur Squamous Epith Cells NONE /LPF Amorphous Sediment TRACE /LPF Urine Bacteria NONE /LPF Urine Mucus 2+ /LPF Urine Opiates Screen Not Detected (Not Detect) Urine Fentanyl Screen Not Detected (Not Detect) Ur Barbiturates Screen Not Detected (Not Detect) Ur Phencyclidine Scrn Not Detected (Not Detect) Ur Amphetamines Screen Not Detected (Not Detect) U Benzodiazepines Scrn POSITIVE H (Not Detect) Urine Cocaine Screen Not Detected (Not Detect) U Marijuana (THC) Screen Not Detected (Not Detect) Ethyl Alcohol mg/dL Discharge Plan Discharge Clinical Impression: Heart palpitations, Anxiety Patient Disposition: Home, Self-Care Instructions: Heart Palpitations (ED), Anxiety (ED) Prescriptions: No Action fluoxetine 40 mg capsule 80 mg PO DAILY clonidine HCl 0.1 mg tablet 0.05 mg PO BID PRN (Reason: Anxiety) buspirone 30 mg tablet 1 tab PO BID propranolol 20 mg tablet 1 tab PO BID clonidine HCl 0.1 mg tablet 0.1 mg PO BEDTIME PRN (Reason: Insomnia) nicotine (polacrilex) 2 mg Gum 4 mg buccal Q2H PRN (Reason: Nicotine Cravings) 30 Days Qty: 120 0RF multivitamin with folic acid [Tab-A-Ninoska] 400 mcg Tablet 1 tab PO DAILY 30 Days Qty: 30 0RF olanzapine 10 mg Tablet 15 mg PO BEDTIME Qty: 30 0RF lamotrigine [Lamictal] 200 mg Tablet 200 mg PO BID Qty: 60 0RF Label Comments: PT TAKES QAM AND QHS olanzapine 5 mg Tablet 5 mg PO DAILY Qty: 30 0RF clonazepam [Klonopin] 1 mg Tablet 1 mg PO BID Qty: 60 0RF Label Comments: PT TAKES QAM AND QHS Referrals: Quan Baker MD [Primary Care Provider] - 1 week
[2021-12-21 14:08] LABS: Mucus Urine 2+ /LPF
[2021-12-21 14:09] LABS: RBC Urine 0 /HPF (0)
[2021-12-21 14:10] LABS: Amorphous Sediment Urine TRACE /LPF
[2021-12-21 14:11] LABS: WBC Urine 0-2 /HPF (0-4)
[2021-12-21 14:42] VITALS: BP 113/62; PULSE 59; RESP 11; TEMP 36.3; O2SAT 97
[2021-12-21 15:32] LABS: Lactic Acid 1.3 mmol/L (0.5-2.0)
[2021-12-21 15:40] LABS: Ethanol < 10 mg/dL
[2021-12-21 15:47] LABS: Alanine Aminotransferase 207 U/L (0-40); Alkaline Phosphatase 93 U/L (39-117); Anion Gap 14 (12-20); Aspartate Amino Transferase 162 U/L (5-37); Bilirubin Direct 0.4 mg/dL (0.0-0.5); Blood Urea Nitrogen 13 mg/dL (9-16); Calcium 10.2 mg/dL (8.4-10.2); Carbon Dioxide 29 mmol/L (22-29); Chloride 103 mmol/L (96-108); Creatinine Clr Calc Pharmacy 117.4; Estimated Glomerular Filt Rate > 60; Glucose Random 109 mg/dL (60-115); Potassium 4.5 mmol/L (3.3-5.1); Sodium 141 mmol/L (135-145); Total Protein 7.6 g/dL (6.5-8.0)
[2021-12-21 15:55] LABS: Amphetamine Screen Urine Not Detected (Not Detect); Barbiturates, Urine Not Detected (Not Detect); Benzodiazepines Screen Urine POSITIVE (Not Detect); Cannabinoid Screen Urine Not Detected (Not Detect); Cocaine Screen Urine Not Detected (Not Detect); Fentanyl, urine Not Detected (Not Detect); Opiate Screen Urine Not Detected (Not Detect); Phencyclidine Screen Urine Not Detected (Not Detect)
[2021-12-23 03:16] LABS: Prolactin 7.7 ng/mL (2.0-18.0)
== END 2021-12-21 16:51 | disposition home or self-care (01) ==
PROVIDERS: Emergency Medicine; Emergency Provider Emergency Medicine; PCP Internal Medicine
DX: R00.2 Palpitations (principal); F41.9 Anxiety disorder, unspecified; I10 Essential (primary) hypertension; F10.10 Alcohol abuse, uncomplicated; Y90.0 Blood alcohol level of less than 20 mg/100 ml; F17.210 Nicotine dependence, cigarettes, uncomplicated; Z79.899 Other long term (current) drug therapy
CPT/HCPCS: 36415; 80048; 80053; 80076; 80307; 81001; 82077; 83605; 83735; 84146; 84484; 85025; 93005; 99283; 99284

== ENCOUNTER 2022-03-28 09:21 | Emergency (ER) | payer MEDICARE, MEDICAID, SELFPAY ==
--- NOTE | ~2022-03-28 | XR_ITS ---
EXAMINATION: XR CHEST CLINICAL INFORMATION: Shortness of breath, cough, Covid infection COMPARISON: 05/14/2017 TECHNIQUE: 2 views of the chest were obtained. FINDINGS: Lungs are well-inflated and clear. Trachea is midline in position. No interstitial disease, consolidation or mass. No pleural effusion or pneumothorax. Cardiac silhouette and pulmonary vessels are normal in size. The mediastinum and jose have normal contour. The visualized bones, and upper abdomen, are unremarkable. XR/XR chest 2V IMPRESSION: No radiographic evidence of pneumonia. No acute cardiopulmonary abnormality compared to 05/14/2017.
[2022-03-28 09:24] VITALS: BP 143/92; PULSE 84; RESP 19; TEMP 36.6; O2SAT 98; BMI 35.2
--- NOTE | 2022-03-28 12:02 | ED_ITS ---
HPI - General Adult General Chief complaint: Upper Respiratory Symptoms Stated complaint: Chest discomfort/SOB/COVID+ 11 days ago Time Seen by Provider: 03/28/22 11:10 Source: patient Mode of arrival: ambulatory Limitations: no limitations History of Present Illness HPI narrative: 41-year-old male with pmh of alcohol abuse, asthma, panic disorder, and HTN presents to the ED for loss of taste and smell as of this morning and coughing clear phlegm since yesterday. Patient states he tested positive for COVID 11 days ago and the only symptoms he had initially was just body aches and slight cough. Patient states he then was prescribed paxlovid which he finished 4 days ago and felt fine ( coughing and bodyaches resolved and tested negative). patient than states symptoms started again last night. patient denies any chest pain, chest pain on inspiration, leg swelling, calf pain, coughing up blood, or shortness of breath on extertion. Related Data Home Medications Medication Instructions Recorded Confirmed buspirone 30 mg tablet 1 tab PO BID 12/08/20 12/08/20 clonidine HCl 0.1 mg tablet 0.05 mg PO BID PRN Anxiety 12/08/20 12/08/20 clonidine HCl 0.1 mg tablet 0.1 mg PO BEDTIME PRN Insomnia 12/08/20 12/08/20 fluoxetine 40 mg capsule 80 mg PO DAILY 12/08/20 12/08/20 propranolol 20 mg tablet 1 tab PO BID 12/08/20 12/08/20 Previous Rx's Medication Instructions Recorded clonazepam 1 mg tablet (Klonopin) 1 mg PO BID #60 tabs 03/23/20 lamotrigine 200 mg tablet 200 mg PO BID #60 tabs 03/23/20 (Lamictal) olanzapine 10 mg tablet 15 mg PO BEDTIME #30 tabs 03/23/20 olanzapine 5 mg tablet 5 mg PO DAILY #30 tabs 03/23/20 multivitamin with folic acid 400 1 tab PO DAILY 30 days #30 tabs 12/11/20 mcg tablet (Tab-A-Ninoska) nicotine (polacrilex) 2 mg gum 4 mg buccal Q2H PRN Nicotine 12/11/20 Cravings 30 days #120 ea Allergies Allergy/AdvReac Type Severity Reaction Status Date / Time mirtazapine [MIRTAZAPINE] Allergy Intermediate UNKNOWN Verified 12/21/21 12:10 sulfamethoxazole Allergy Unknown RASH Verified 12/21/21 12:10 [From BACTRIM] trimethoprim [From BACTRIM] Allergy Unknown RASH Verified 12/21/21 12:10 Review of Systems Review of Systems: COughing clear phleghm and loss of taste and smell Yes all other systems are reviewed and are negative [facility]LY [facility], [facility] Past Medical History Medical History Alcohol use disorder, mild, in controlled environment, abuse HTN (hypertension) Tachycardia Transaminitis Social History Social History Household Members: Family Housing: House Do you presently have visiting nurse or other home services: No Alcohol intake: current Alcohol intake frequency: 0-2 drinks per day Alcohol type: hard liquor Patient Tobacco Use Status: Current everyday Tobacco user Tobacco use type: Cigarette Cigarette Packs Per Day: 0.5 Cigarettes Per Day: 10.0 Years Smoked: 12 e-Cigarette/Vaping Use: Currently Using Second Hand Smoke Exposure: Yes Advance Directives: No Advance Directives Information Provided: No service: No Sexual orientation: Don't Know Physical Exam ED Vital Signs: Vital Signs - 24 hr 03/28/22 09:24 Temperature 98 F Pulse Rate 84 Respiratory Rate 19 Blood Pressure 143/92 H Pulse Oximetry 98 Oxygen Delivery Method Room Air BMI result Body Mass Index 35.2 Const General: cooperative, healthy appearing, comfortable, no acute distress, well developed, alert, awake and Physically active Orientation/consciousness: oriented to time and patient oriented x3 [facility] Head: Yes normal to inspection, Yes No palpable skull fracture present, Yes normocephalic and Yes atraumatic Ears: hearing grossly normal bilaterally, external ears normal, TM's normal bilaterally, EAC's normal, mastoids normal and no periauricular adenopathy Eyes General: appearance normal, both eyes and all related structures Neck Neck: Yes normal visual inspection, Yes full ROM, Yes no lymphadenopathy, Yes no meningeal signs, Yes trachea midline, Yes supple, No anterior neck swelling and No tender Chest Chest palpation & inspection: normal inspection of the chest and normal palpation of entire chest wall Resp Effort & Inspection: normal respiratory effort and able to speak in complete sentences Auscultation: clear to auscultation bilaterally Cardio Jugular venous distension: no JVD Heart sounds: S1 normal heart sound present and S2 normal heart sound present GI Inspection: Yes normal to inspection and No abdominal wall ecchymosis Palpation (GI): Soft to palpation, not firm, nontender, no guarding and not rigid General: No CVA tenderness and Yes no CVA tenderness Back/Spine/Pelvis Back: no CVA tenderness, No CVA tenderness and No back tenderness Skin General skin exam: no rashes or lesions noted and elasticity normal Neuro General: oriented to time, patient oriented x3, gait normal, tone normal, moves all extremities and no meningeal signs Cranial nerves: Yes CN's II-XII intact bilaterally Extrem Other: bilateral lower extremities negative for swelling, pitting edema, or calf tenderness. General: Yes normal to inspection and Yes full ROM Psych Appearance: grossly normal, well kempt and not disheveled Course Course Course Narrative: CHest xray ordered. Patient well-appearing and vital signs stable. Reevaluation(s) Reevaluation #1: Paxlovid as per update can cause rebound Covid. Patient new symptoms of loss of taste and smell occurring today and new cough with positive covid test confirms diagnosiis. Not suspecting PE, MT, or CHF. Patient informed to isolate Time: 12:33 Medical Decision Making MDM Narrative Medical decision making narrative: Covid Lab Data Labs: Lab Results 03/28/22 Range/Units 11:52 COVID-19 (COLE) Positive A (Negative) COVID-19 Clin Com See Note Discharge Plan Discharge Clinical Impression: COVID-19 Patient Disposition: Home, Self-Care Instructions: COVID-19 (Coronavirus Disease 2019) (ED) Additional Instructions: Your symptoms are due to COVID/rebound COVID. You will need to isolate for the next 5 days. Return to the ED for coughing up blood, chest pain, shortness of breath on exertion, chest pain on inspiration, leg swelling, calf pain, coughing up blood, or any other concerning symptoms. Please follow up [facility] PCP Prescriptions: No Action fluoxetine 40 mg capsule 80 mg PO DAILY clonidine HCl 0.1 mg tablet 0.05 mg PO BID PRN (Reason: Anxiety) buspirone 30 mg tablet 1 tab PO BID propranolol 20 mg tablet 1 tab PO BID clonidine HCl 0.1 mg tablet 0.1 mg PO BEDTIME PRN (Reason: Insomnia) nicotine (polacrilex) 2 mg Gum 4 mg buccal Q2H PRN (Reason: Nicotine Cravings) 30 Days Qty: 120 0RF multivitamin with folic acid [Tab-A-Ninoska] 400 mcg Tablet 1 tab PO DAILY 30 Days Qty: 30 0RF olanzapine 10 mg Tablet 15 mg PO BEDTIME Qty: 30 0RF lamotrigine [Lamictal] 200 mg Tablet 200 mg PO BID Qty: 60 0RF Label Comments: PT TAKES QAM AND QHS olanzapine 5 mg Tablet 5 mg PO DAILY Qty: 30 0RF clonazepam [Klonopin] 1 mg Tablet 1 mg PO BID Qty: 60 0RF Label Comments: PT TAKES QAM AND QHS Stand Alone Forms: Work/School Release Interventions: ED Discharge Assessment Last Done: 03/28/22 12:57 Discharge Date/Time: 03/28/22 12:58 Print Language: Indonesian
[2022-03-28 12:12] LABS: COVID-19 Test Positive (Negative); IDNOW Serial# 16C4AD1C
== END 2022-03-28 12:58 | disposition home or self-care (01) ==
PROVIDERS: Physician Assistant; Emergency Provider Student in an Organized Health Care Education/Training Program; PCP Internal Medicine
DX: R07.89 Other chest pain (principal); U07.1 COVID-19; R06.02 Shortness of breath; R05.9 Cough, unspecified; Z79.899 Other long term (current) drug therapy
CPT/HCPCS: 71046; 87635; 99283

== ENCOUNTER 2022-05-30 11:02 | Emergency (ER) | payer MEDICARE, MEDICAID, SELFPAY ==
--- NOTE | ~2022-05-30 | CT_ITS ---
EXAMINATION: CT abdomen pelvis wo IV con CLINICAL INFORMATION: Reason for Exam right flank/rlq abd pain x 3 days COMPARISON: No prior CT available for comparison. TECHNIQUE: Multidetector volumetric imaging was performed from the superior aspect of the liver through the pubic symphysis , noncontrasted study. Sagittal and coronal reformatted images were obtained on the technologist's workstation. This CT examination was performed using dose optimization techniques as appropriate, variously including the following: *Automated exposure control *Adjustment of mA and/or kV according to patient size (this includes techniques or standardized protocols for targeted exams where dose is matched to indication/reason for exam; i.e. extremities or head) *Use of iterative reconstruction technique DLP: 1042 mGy-cm FINDINGS: LOWER THORAX: Included lung bases are clear. HEPATOBILIARY: Diffusely hypodense liver suggesting hepatic steatosis. GALLBLADDER: Gallbladder unremarkable. SPLEEN: Spleen borderline enlarged 13 cm. PANCREAS: No focal mass or ductal dilatation. STOMACH AND GASTROINTESTINAL TRACT: Stomach is grossly unremarkable. There is no bowel distention or thickening. No CT evidence of appendicitis. ADRENALS: No adrenal nodules. KIDNEYS/URETERS: No hydronephrosis, stones or solid mass lesions. URINARY BLADDER: Partially decompressed. PELVIC VISCERA: Unremarkable PERITONEUM: No free air or fluid. LYMPH NODES: No lymphadenopathy. VASCULAR:Abdominal aorta normal in size, no aneurysm found. BONES, ABDOMINAL WALL AND SOFT TISSUES: Age-appropriate changes of the spine and skeletal system, no destructive osteolytic or osteosclerotic bone lesion found CT/CT abdomen pelvis wo IV con IMPRESSION: * No CT evidence of acute intra-abdominal process to explain patient's pain symptoms. No kidney stones or hydronephrosis. No evidence of appendicitis. * Diffusely hypodense liver suggesting hepatic steatosis. * Spleen borderline enlarged 13 cm.
[2022-05-30 11:11] VITALS: BP 142/91; PULSE 94; O2SAT 97
[2022-05-30 11:26] VITALS: BP 143/97; PULSE 101; RESP 22; TEMP 37.8; O2SAT 95; BMI 36.9
--- NOTE | 2022-05-30 11:26 | ED.GENADULT ---
HPI - General Adult General Chief complaint: General Medical <ISHA Gonzalez - Last Filed: 05/30/22 11:33> Stated complaint: FLU LIKE SX FOR DAYS, R FLANK PAIN 5 DAYS <ISHA Gonzalez - Last Filed: 05/30/22 11:33> Time Seen by Provider: 05/30/22 14:55 <ISHA Gonzalez - Last Filed: 05/30/22 11:33> Source: patient <Nazario Swartz MD - Last Filed: 05/30/22 17:22> Mode of arrival: ambulatory <Nazario Swartz MD - Last Filed: 05/30/22 17:22> Limitations: no limitations <Nazario Swartz MD - Last Filed: 05/30/22 17:22> History of Present Illness HPI narrative: Patient 42 yrs history old with history bipolar disorder alcohol use comes here for upper respiratory symptom with cold congestion cough for last 3- 4 days also complaining of pain in the right flank area patient stopped drinking 2 days ago. Patient's daughter positive with flu <Nazario Swartz MD - Last Filed: 05/30/22 17:22> Related Data Home medications: Home Medications Medication Instructions Recorded Confirmed buspirone 30 mg tablet 1 tab PO BID 12/08/20 12/08/20 clonidine HCl 0.1 mg tablet 0.05 mg PO BID PRN Anxiety 12/08/20 12/08/20 clonidine HCl 0.1 mg tablet 0.1 mg PO BEDTIME PRN Insomnia 12/08/20 12/08/20 fluoxetine 40 mg capsule 80 mg PO DAILY 12/08/20 12/08/20 propranolol 20 mg tablet 1 tab PO BID 12/08/20 12/08/20 Previous Rx's Medication Instructions Recorded clonazepam 1 mg tablet (Klonopin) 1 mg PO BID #60 tabs 03/23/20 lamotrigine 200 mg tablet 200 mg PO BID #60 tabs 03/23/20 (Lamictal) olanzapine 10 mg tablet 15 mg PO BEDTIME #30 tabs 03/23/20 olanzapine 5 mg tablet 5 mg PO DAILY #30 tabs 03/23/20 multivitamin with folic acid 400 1 tab PO DAILY 30 days #30 tabs 12/11/20 mcg tablet (Tab-A-Ninoska) nicotine (polacrilex) 2 mg gum 4 mg buccal Q2H PRN Nicotine 12/11/20 Cravings 30 days #120 ea benzonatate 200 mg capsule 200 mg PO TID PRN cough #30 caps 05/30/22 tramadol 50 mg tablet 50 mg PO Q6H PRN pain #20 tabs 05/30/22 <ISHA Gonzalez - Last Filed: 05/30/22 11:33> Allergies/adverse reactions: Allergies Allergy/AdvReac Type Severity Reaction Status Date / Time mirtazapine [MIRTAZAPINE] Allergy Intermediate UNKNOWN Verified 12/21/21 12:10 sulfamethoxazole Allergy Unknown RASH Verified 12/21/21 12:10 [From BACTRIM] trimethoprim [From BACTRIM] Allergy Unknown RASH Verified 12/21/21 12:10 <ISHA Gonzalez - Last Filed: 05/30/22 11:33> Review of Systems Review of Systems: Yes all other systems are reviewed and are negative <Nazario Swartz MD - Last Filed: 05/30/22 17:22> [facility] Past Medical History Medical History: Medical History Alcohol use disorder, mild, in controlled environment, abuse HTN (hypertension) Tachycardia Transaminitis <ISHA Gonzalez - Last Filed: 05/30/22 11:33> Social History Social History: Social History Household Members: Family Housing: House Do you presently have visiting nurse or other home services: No Alcohol intake: current Alcohol intake frequency: 3 or more drinks per day Alcohol type: beer and hard liquor Patient Tobacco Use Status: Current everyday Tobacco user Tobacco use type: Cigarette Cigarette Packs Per Day: 0.5 Cigarettes Per Day: 10.0 Years Smoked: 12 Smoked in Last 30 Days: Yes e-Cigarette/Vaping Use: Currently Using Second Hand Smoke Exposure: Yes Use of substances other than those prescribed or required for medical reasons: No Advance Directives: No Advance Directives Information Provided: Yes service: No Sexual orientation: Don't Know <ISHA Gonzalez - Last Filed: 05/30/22 11:33> Physical Exam ED Vital Signs: Vital Signs - 24 hr 05/30/22 11:26 05/30/22 15:05 Temperature 100.1 F 99.5 F Pulse Rate 101 H 93 Respiratory Rate 22 H 18 Blood Pressure 143/97 H 139/81 Pulse Oximetry 95 94 Oxygen Delivery Method Room Air Room Air BMI result Body Mass Index 36.9 <ISHA Gonzalez - Last Filed: 05/30/22 11:33> Vital Signs - 24 hr 05/30/22 11:26 05/30/22 15:05 Temperature 100.1 F 99.5 F Pulse Rate 101 H 93 Respiratory Rate 22 H 18 Blood Pressure 143/97 H 139/81 Pulse Oximetry 95 94 Oxygen Delivery Method Room Air Room Air BMI result Body Mass Index 36.9 <Nazario Swartz MD - Last Filed: 05/30/22 17:22> Appearance: Alert. Oriented X3. No acute distress. Eyes: PERRLA, No Nystagmus ENT: Pharynx normal. Oral Mucosa moist Neck: Normal inspection. Neck supple. CVS: Normal heart rate and rhythm. Pulses normal. Respiratory: No respiratory distress. Equal air entry bilateral, no wheezing/rales/rhonchi dry cough+ Abdomen: Soft and nontender. Bowel sounds are present, no mass palpable, right-sided lower lumbar tenderness no severe tenderness no midline tenderness Skin: Skin warm and dry. Normal skin color. Normal skin turgor. Extremities: No lower extremity edema. No calf tenderness Neuro: Oriented X 3. No motor deficit. No sensory deficit.No cerebellar signs , cranial nerves II-XII intact <Nazario Swartz MD - Last Filed: 05/30/22 17:22> Course Course Course Narrative: BELENE 11:26AM - 42yoM presenting to the ED with complaints of right flank pain/right lower quadrant abdominal pain x 3 days with associated diarrhea. Reports he was around his knees a few days ago who tested positive for the flu and he is been having fevers, chills, body aches and a cough. Denies recent travel or any of other sick contacts. Reports he stopped drinking 2 days ago has never had withdrawal seizures from this. Denies any other symptoms. Plan: Patient is stable. He can be sent back to the waiting room to be evaluated in the main ED. Labs, CT scan abdomen pelvis with IV contrast, blood cultures and lactic acid ordered at this time. <ISHA Gonzalez - Last Filed: 05/30/22 11:33> Medications Administered Discontinued Medications Generic Name Dose Route Start Last Admin Trade Name Freq PRN Reason Stop Dose Admin Ibuprofen 800 mg 05/30/22 14:54 05/30/22 15:26 Ibuprofen 800 Mg Tablet PO 05/30/22 14:55 800 mg ONCE ONE Administration <ISHA Gonzalez - Last Filed: 05/30/22 11:33> Medications Administered Discontinued Medications Generic Name Dose Route Start Last Admin Trade Name Freq PRN Reason Stop Dose Admin Ibuprofen 800 mg 05/30/22 14:54 05/30/22 15:26 Ibuprofen 800 Mg Tablet PO 05/30/22 14:55 800 mg ONCE ONE Administration <Nazario Swartz MD - Last Filed: 05/30/22 17:22> Medical Decision Making Medical Decision Making [facility] [place] Narrative: Patient with influenza a with right lower back pain CT scan of the abdomen negative for acute lab workup showed elevated liver enzymes suggestive of alcohol liver disease which has been in the past also. Patient has stop drinking alcohol advised to follow up with PCP in 2 weeks to recheck the liver enzymes <Nazario Swartz MD - Last Filed: 05/30/22 17:22> Lab Data [facility] [place] Lab Attestation statement: I reviewed the patient's lab results. <Nazario Swartz MD - Last Filed: 05/30/22 17:22> Result Diagrams: : 05/30/22 11:37 05/30/22 11:37 <ISHA Gonzalez - Last Filed: 05/30/22 11:33> Labs: Lab Results 05/30/22 05/30/22 05/30/22 Range/Units 11:37 11:37 11:37 WBC 6.5 (4.8-10.8) X10*3/uL RBC 4.54 L (4.60-5.80) X10*6/uL Hgb 14.8 (14.0-18.0) g/dl Hct 43.3 (42.0-52.0) % MCV 95.4 (80.0-98.0) fL MCH 32.6 (27.0-33.0) pg MCHC 34.2 (31.0-36.0) g/dl RDW 13.6 (11.0-16.0) % Plt Count 172 (160-400) X10*3/uL MPV 8.9 L (9.4-12.4) fL Immature Gran % (Auto) 0.3 (0.0-0.4) % Neut % (Auto) 77.5 H (45-73) % Lymph % (Auto) 9.4 L (20-40) % Free[place] % (Auto) 8.3 (2-11) % Eos % (Auto) 3.7 (0-4) % Baso % (Auto) 0.8 (0-2) % Lymph # (Auto) 0.6 L (1.2-4.9) X10*3/uL [place] # (Auto) 0.5 (0.1-1.2) X10*3/uL Eos # (Auto) 0.2 (0.0-0.4) X10*3/uL Baso # (Auto) 0.1 (0.0-0.2) X10*3/uL Abs Immat Gran (auto) 0.02 (0.00-0.03) X10*3/uL Absolute Neuts (auto) 5.0 (2.0-8.3) x10*3/uL Absolute Nucleated RBC 0.000 (0.0-0.012) X10*3/uL Nucleated RBC % (auto) 0.0 (0.0-0.2) /100WBC PT 12.7 (10.0-13.1) SEC INR 1.1 (0.9-1.1) Sodium 135 (135-145) mmol/L Potassium 4.3 (3.3-5.1) mmol/L Chloride 99 (96-108) mmol/L Carbon Dioxide 23 (22-29) mmol/L Anion Gap 17 (12-20) BUN 9 (9-16) mg/dL Creatinine 0.98 (0.5-1.4) mg/dL Estim Creat Clear Calc 138.5 Estimated GFR > 60 Random Glucose 106 (60-115) mg/dL Lactic Acid (0.5-2.0) mmol/L Calcium 9.7 (8.4-10.2) mg/dL Magnesium 1.9 (1.6-2.6) mg/dL Total Bilirubin 1.9 H (0.0-1.0) mg/dL AST 358 H (5-37) U/L ALT 224 H (0-40) U/L Alkaline Phosphatase 120 H D (39-117) U/L Total Protein 7.2 (6.5-8.0) g/dL Albumin 4.7 (3.5-5.0) g/dL Lipase 18 (8-78) U/L Urine Color Urine Appearance Urine pH (5.0-9.0) Ur Specific Bradner (1.005-1.025) Urine Protein (Neg-Trace) mg/dL Urine Glucose (UA) (Negative) mg/dL Urine Ketones (Negative) mg/dL Urine Blood (Negative) Urine Nitrite (Negative) Ur Leukocyte Esterase (Negative) Urine RBC (0-2) /HPF Urine WBC (0-5) /HPF Ur Squamous Epith Cells (0-2) /HPF Urine Bacteria (None Seen) Hyaline Casts (0-2) /LPF Urine Opiates Screen (Not Detect) Urine Fentanyl Screen (Not Detect) Ur Barbiturates Screen (Not Detect) Ur Phencyclidine Scrn (Not Detect) Ur Amphetamines Screen (Not Detect) U Benzodiazepines Scrn (Not Detect) Urine Cocaine Screen (Not Detect) U Marijuana (THC) Screen (Not Detect) Ethyl Alcohol < 10 mg/dL Influenza Type A (PCR) (Negative) Influenza Type B (PCR) (Negative) RSV RNA Qual (PCR) (Negative) SARS-CoV-2 RNA (RT-PCR) (Negative) 05/30/22 05/30/22 05/30/22 Range/Units 11:37 11:44 11:44 WBC (4.8-10.8) X10*3/uL RBC (4.60-5.80) X10*6/uL Hgb (14.0-18.0) g/dl Hct (42.0-52.0) % MCV (80.0-98.0) fL MCH (27.0-33.0) pg MCHC (31.0-36.0) g/dl RDW (11.0-16.0) % Plt Count (160-400) X10*3/uL MPV (9.4-12.4) fL Immature Gran % (Auto) (0.0-0.4) % Neut % (Auto) (45-73) % Lymph % (Auto) (20-40) % Free[place] % (Auto) (2-11) % Eos % (Auto) (0-4) % Baso % (Auto) (0-2) % Lymph # (Auto) (1.2-4.9) X10*3/uL Free[place] # (Auto) (0.1-1.2) X10*3/uL Eos # (Auto) (0.0-0.4) X10*3/uL Baso # (Auto) (0.0-0.2) X10*3/uL Abs Immat Gran (auto) (0.00-0.03) X10*3/uL Absolute Neuts (auto) (2.0-8.3) x10*3/uL Absolute Nucleated RBC (0.0-0.012) X10*3/uL Nucleated RBC % (auto) (0.0-0.2) /100WBC PT (10.0-13.1) SEC INR (0.9-1.1) Sodium (135-145) mmol/L Potassium (3.3-5.1) mmol/L Chloride (96-108) mmol/L Carbon Dioxide (22-29) mmol/L Anion Gap (12-20) BUN (9-16) mg/dL Creatinine (0.5-1.4) mg/dL Estim Creat Clear Calc Estimated GFR Random Glucose (60-115) mg/dL Lactic Acid 1.3 (0.5-2.0) mmol/L Calcium (8.4-10.2) mg/dL Magnesium (1.6-2.6) mg/dL Total Bilirubin (0.0-1.0) mg/dL AST (5-37) U/L ALT (0-40) U/L Alkaline Phosphatase (39-117) U/L Total Protein (6.5-8.0) g/dL Albumin (3.5-5.0) g/dL Lipase (8-78) U/L Urine Color Dark Yellow Urine Appearance Clear Urine pH 8.5 (5.0-9.0) Ur Specific Bradner 1.025 (1.005-1.025) Urine Protein 30 (1+) H (Neg-Trace) mg/dL Urine Glucose (UA) Negative (Negative) mg/dL Urine Ketones Trace (Negative) mg/dL Urine Blood Negative (Negative) Urine Nitrite Negative (Negative) Ur Leukocyte Esterase Trace H (Negative) Urine RBC 0-2 (0-2) /HPF Urine WBC 0-5 (0-5) /HPF Ur Squamous Epith Cells 0-2 (0-2) /HPF Urine Bacteria None Seen (None Seen) Hyaline Casts 0-2 (0-2) /LPF Urine Opiates Screen Not Detected (Not Detect) Urine Fentanyl Screen Not Detected (Not Detect) Ur Barbiturates Screen Not Detected (Not Detect) Ur Phencyclidine Scrn Not Detected (Not Detect) Ur Amphetamines Screen Not Detected (Not Detect) U Benzodiazepines Scrn Not Detected (Not Detect) Urine Cocaine Screen Not Detected (Not Detect) U Marijuana (THC) Screen Not Detected (Not Detect) Ethyl Alcohol mg/dL Influenza Type A (PCR) (Negative) Influenza Type B (PCR) (Negative) RSV RNA Qual (PCR) (Negative) SARS-CoV-2 RNA (RT-PCR) (Negative) 05/30/22 Range/Units 14:57 WBC (4.8-10.8) X10*3/uL RBC (4.60-5.80) X10*6/uL Hgb (14.0-18.0) g/dl Hct (42.0-52.0) % MCV (80.0-98.0) fL MCH (27.0-33.0) pg MCHC (31.0-36.0) g/dl RDW (11.0-16.0) % Plt Count (160-400) X10*3/uL MPV (9.4-12.4) fL Immature Gran % (Auto) (0.0-0.4) % Neut % (Auto) (45-73) % Lymph % (Auto) (20-40) % Free[place] % (Auto) (2-11) % Eos % (Auto) (0-4) % Baso % (Auto) (0-2) % Lymph # (Auto) (1.2-4.9) X10*3/uL Free[place] # (Auto) (0.1-1.2) X10*3/uL Eos # (Auto) (0.0-0.4) X10*3/uL Baso # (Auto) (0.0-0.2) X10*3/uL Abs Immat Gran (auto) (0.00-0.03) X10*3/uL Absolute Neuts (auto) (2.0-8.3) x10*3/uL Absolute Nucleated RBC (0.0-0.012) X10*3/uL Nucleated RBC % (auto) (0.0-0.2) /100WBC PT (10.0-13.1) SEC INR (0.9-1.1) Sodium (135-145) mmol/L Potassium (3.3-5.1) mmol/L Chloride (96-108) mmol/L Carbon Dioxide (22-29) mmol/L Anion Gap (12-20) BUN (9-16) mg/dL Creatinine (0.5-1.4) mg/dL Estim Creat Clear Calc Estimated GFR Random Glucose (60-115) mg/dL Lactic Acid (0.5-2.0) mmol/L Calcium (8.4-10.2) mg/dL Magnesium (1.6-2.6) mg/dL Total Bilirubin (0.0-1.0) mg/dL AST (5-37) U/L ALT (0-40) U/L Alkaline Phosphatase (39-117) U/L Total Protein (6.5-8.0) g/dL Albumin (3.5-5.0) g/dL Lipase (8-78) U/L Urine Color Urine Appearance Urine pH (5.0-9.0) Ur Specific Bradner (1.005-1.025) Urine Protein (Neg-Trace) mg/dL Urine Glucose (UA) (Negative) mg/dL Urine Ketones (Negative) mg/dL Urine Blood (Negative) Urine Nitrite (Negative) Ur Leukocyte Esterase (Negative) Urine RBC (0-2) /HPF Urine WBC (0-5) /HPF Ur Squamous Epith Cells (0-2) /HPF Urine Bacteria (None Seen) Hyaline Casts (0-2) /LPF Urine Opiates Screen (Not Detect) Urine Fentanyl Screen (Not Detect) Ur Barbiturates Screen (Not Detect) Ur Phencyclidine Scrn (Not Detect) Ur Amphetamines Screen (Not Detect) U Benzodiazepines Scrn (Not Detect) Urine Cocaine Screen (Not Detect) U Marijuana (THC) Screen (Not Detect) Ethyl Alcohol mg/dL Influenza Type A (PCR) POSITIVE A (Negative) Influenza Type B (PCR) NEGATIVE (Negative) RSV RNA Qual (PCR) NEGATIVE (Negative) SARS-CoV-2 RNA (RT-PCR) NEGATIVE (Negative) <ISHA Gonzalez - Last Filed: 05/30/22 11:33> Lab Results 05/30/22 05/30/22 05/30/22 Range/Units 11:37 11:37 11:37 WBC 6.5 (4.8-10.8) X10*3/uL RBC 4.54 L (4.60-5.80) X10*6/uL Hgb 14.8 (14.0-18.0) g/dl Hct 43.3 (42.0-52.0) % MCV 95.4 (80.0-98.0) fL MCH 32.6 (27.0-33.0) pg MCHC 34.2 (31.0-36.0) g/dl RDW 13.6 (11.0-16.0) % Plt Count 172 (160-400) X10*3/uL MPV 8.9 L (9.4-12.4) fL Immature Gran % (Auto) 0.3 (0.0-0.4) % Neut % (Auto) 77.5 H (45-73) % Lymph % (Auto) 9.4 L (20-40) % Free[place] % (Auto) 8.3 (2-11) % Eos % (Auto) 3.7 (0-4) % Baso % (Auto) 0.8 (0-2) % Lymph # (Auto) 0.6 L (1.2-4.9) X10*3/uL [place] # (Auto) 0.5 (0.1-1.2) X10*3/uL Eos # (Auto) 0.2 (0.0-0.4) X10*3/uL Baso # (Auto) 0.1 (0.0-0.2) X10*3/uL Abs Immat Gran (auto) 0.02 (0.00-0.03) X10*3/uL Absolute Neuts (auto) 5.0 (2.0-8.3) x10*3/uL Absolute Nucleated RBC 0.000 (0.0-0.012) X10*3/uL Nucleated RBC % (auto) 0.0 (0.0-0.2) /100WBC PT 12.7 (10.0-13.1) SEC INR 1.1 (0.9-1.1) Sodium 135 (135-145) mmol/L Potassium 4.3 (3.3-5.1) mmol/L Chloride 99 (96-108) mmol/L Carbon Dioxide 23 (22-29) mmol/L Anion Gap 17 (12-20) BUN 9 (9-16) mg/dL Creatinine 0.98 (0.5-1.4) mg/dL Estim Creat Clear Calc 138.5 Estimated GFR > 60 Random Glucose 106 (60-115) mg/dL Lactic Acid (0.5-2.0) mmol/L Calcium 9.7 (8.4-10.2) mg/dL Magnesium 1.9 (1.6-2.6) mg/dL Total Bilirubin 1.9 H (0.0-1.0) mg/dL AST 358 H (5-37) U/L ALT 224 H (0-40) U/L Alkaline Phosphatase 120 H D (39-117) U/L Total Protein 7.2 (6.5-8.0) g/dL Albumin 4.7 (3.5-5.0) g/dL Lipase 18 (8-78) U/L Urine Color Urine Appearance Urine pH (5.0-9.0) Ur Specific Bradner (1.005-1.025) Urine Protein (Neg-Trace) mg/dL Urine Glucose (UA) (Negative) mg/dL Urine Ketones (Negative) mg/dL Urine Blood (Negative) Urine Nitrite (Negative) Ur Leukocyte Esterase (Negative) Urine RBC (0-2) /HPF Urine WBC (0-5) /HPF Ur Squamous Epith Cells (0-2) /HPF Urine Bacteria (None Seen) Hyaline Casts (0-2) /LPF Urine Opiates Screen (Not Detect) Urine Fentanyl Screen (Not Detect) Ur Barbiturates Screen (Not Detect) Ur Phencyclidine Scrn (Not Detect) Ur Amphetamines Screen (Not Detect) U Benzodiazepines Scrn (Not Detect) Urine Cocaine Screen (Not Detect) U Marijuana (THC) Screen (Not Detect) Ethyl Alcohol < 10 mg/dL Influenza Type A (PCR) (Negative) Influenza Type B (PCR) (Negative) RSV RNA Qual (PCR) (Negative) SARS-CoV-2 RNA (RT-PCR) (Negative) 05/30/22 05/30/22 05/30/22 Range/Units 11:37 11:44 11:44 WBC (4.8-10.8) X10*3/uL RBC (4.60-5.80) X10*6/uL Hgb (14.0-18.0) g/dl Hct (42.0-52.0) % MCV (80.0-98.0) fL MCH (27.0-33.0) pg MCHC (31.0-36.0) g/dl RDW (11.0-16.0) % Plt Count (160-400) X10*3/uL MPV (9.4-12.4) fL Immature Gran % (Auto) (0.0-0.4) % Neut % (Auto) (45-73) % Lymph % (Auto) (20-40) % [place] % (Auto) (2-11) % Eos % (Auto) (0-4) % Baso % (Auto) (0-2) % Lymph # (Auto) (1.2-4.9) X10*3/uL [place] # (Auto) (0.1-1.2) X10*3/uL Eos # (Auto) (0.0-0.4) X10*3/uL Baso # (Auto) (0.0-0.2) X10*3/uL Abs Immat Gran (auto) (0.00-0.03) X10*3/uL Absolute Neuts (auto) (2.0-8.3) x10*3/uL Absolute Nucleated RBC (0.0-0.012) X10*3/uL Nucleated RBC % (auto) (0.0-0.2) /100WBC PT (10.0-13.1) SEC INR (0.9-1.1) Sodium (135-145) mmol/L Potassium (3.3-5.1) mmol/L Chloride (96-108) mmol/L Carbon Dioxide (22-29) mmol/L Anion Gap (12-20) BUN (9-16) mg/dL Creatinine (0.5-1.4) mg/dL Estim Creat Clear Calc Estimated GFR Random Glucose (60-115) mg/dL Lactic Acid 1.3 (0.5-2.0) mmol/L Calcium (8.4-10.2) mg/dL Magnesium (1.6-2.6) mg/dL Total Bilirubin (0.0-1.0) mg/dL AST (5-37) U/L ALT (0-40) U/L Alkaline Phosphatase (39-117) U/L Total Protein (6.5-8.0) g/dL Albumin (3.5-5.0) g/dL Lipase (8-78) U/L Urine Color Dark Yellow Urine Appearance Clear Urine pH 8.5 (5.0-9.0) Ur Specific Bradner 1.025 (1.005-1.025) Urine Protein 30 (1+) H (Neg-Trace) mg/dL Urine Glucose (UA) Negative (Negative) mg/dL Urine Ketones Trace (Negative) mg/dL Urine Blood Negative (Negative) Urine Nitrite Negative (Negative) Ur Leukocyte Esterase Trace H (Negative) Urine RBC 0-2 (0-2) /HPF Urine WBC 0-5 (0-5) /HPF Ur Squamous Epith Cells 0-2 (0-2) /HPF Urine Bacteria None Seen (None Seen) Hyaline Casts 0-2 (0-2) /LPF Urine Opiates Screen Not Detected (Not Detect) Urine Fentanyl Screen Not Detected (Not Detect) Ur Barbiturates Screen Not Detected (Not Detect) Ur Phencyclidine Scrn Not Detected (Not Detect) Ur Amphetamines Screen Not Detected (Not Detect) U Benzodiazepines Scrn Not Detected (Not Detect) Urine Cocaine Screen Not Detected (Not Detect) U Marijuana (THC) Screen Not Detected (Not Detect) Ethyl Alcohol mg/dL Influenza Type A (PCR) (Negative) Influenza Type B (PCR) (Negative) RSV RNA Qual (PCR) (Negative) SARS-CoV-2 RNA (RT-PCR) (Negative) 05/30/22 Range/Units 14:57 WBC (4.8-10.8) X10*3/uL RBC (4.60-5.80) X10*6/uL Hgb (14.0-18.0) g/dl Hct (42.0-52.0) % MCV (80.0-98.0) fL MCH (27.0-33.0) pg MCHC (31.0-36.0) g/dl RDW (11.0-16.0) % Plt Count (160-400) X10*3/uL MPV (9.4-12.4) fL Immature Gran % (Auto) (0.0-0.4) % Neut % (Auto) (45-73) % Lymph % (Auto) (20-40) % [place] % (Auto) (2-11) % Eos % (Auto) (0-4) % Baso % (Auto) (0-2) % Lymph # (Auto) (1.2-4.9) X10*3/uL [place] # (Auto) (0.1-1.2) X10*3/uL Eos # (Auto) (0.0-0.4) X10*3/uL Baso # (Auto) (0.0-0.2) X10*3/uL Abs Immat Gran (auto) (0.00-0.03) X10*3/uL Absolute Neuts (auto) (2.0-8.3) x10*3/uL Absolute Nucleated RBC (0.0-0.012) X10*3/uL Nucleated RBC % (auto) (0.0-0.2) /100WBC PT (10.0-13.1) SEC INR (0.9-1.1) Sodium (135-145) mmol/L Potassium (3.3-5.1) mmol/L Chloride (96-108) mmol/L Carbon Dioxide (22-29) mmol/L Anion Gap (12-20) BUN (9-16) mg/dL Creatinine (0.5-1.4) mg/dL Estim Creat Clear Calc Estimated GFR Random Glucose (60-115) mg/dL Lactic Acid (0.5-2.0) mmol/L Calcium (8.4-10.2) mg/dL Magnesium (1.6-2.6) mg/dL Total Bilirubin (0.0-1.0) mg/dL AST (5-37) U/L ALT (0-40) U/L Alkaline Phosphatase (39-117) U/L Total Protein (6.5-8.0) g/dL Albumin (3.5-5.0) g/dL Lipase (8-78) U/L Urine Color Urine Appearance Urine pH (5.0-9.0) Ur Specific Bradner (1.005-1.025) Urine Protein (Neg-Trace) mg/dL Urine Glucose (UA) (Negative) mg/dL Urine Ketones (Negative) mg/dL Urine Blood (Negative) Urine Nitrite (Negative) Ur Leukocyte Esterase (Negative) Urine RBC (0-2) /HPF Urine WBC (0-5) /HPF Ur Squamous Epith Cells (0-2) /HPF Urine Bacteria (None Seen) Hyaline Casts (0-2) /LPF Urine Opiates Screen (Not Detect) Urine Fentanyl Screen (Not Detect) Ur Barbiturates Screen (Not Detect) Ur Phencyclidine Scrn (Not Detect) Ur Amphetamines Screen (Not Detect) U Benzodiazepines Scrn (Not Detect) Urine Cocaine Screen (Not Detect) U Marijuana (THC) Screen (Not Detect) Ethyl Alcohol mg/dL Influenza Type A (PCR) POSITIVE A (Negative) Influenza Type B (PCR) NEGATIVE (Negative) RSV RNA Qual (PCR) NEGATIVE (Negative) SARS-CoV-2 RNA (RT-PCR) NEGATIVE (Negative) <Nazario Swartz MD - Last Filed: 05/30/22 17:22> Discharge Plan Discharge Clinical Impression: Influenza A, Alcoholic liver disease <ISHA Gonzalez - Last Filed: 05/30/22 11:33> Patient Disposition: Home, Self-Care <ISHA Gonzalez - Last Filed: 05/30/22 11:33> Instructions: Cirrhosis (ED), Influenza (ED) <ISHA Gonzalez - Last Filed: 05/30/22 11:33> Additional Instructions: Stop drinking alcohol Motrin for fever , social distancing Tramadol for back pain Cough drops as advised Follow-up with your PCP to recheck liver enzymes in 2 weeks <ISHA Gonzalez - Last Filed: 05/30/22 11:33> Prescriptions: New benzonatate 200 mg capsule 200 mg PO TID PRN (Reason: cough) Qty: 30 0RF tramadol 50 mg tablet 50 mg PO Q6H PRN (Reason: pain) Qty: 20 0RF No Action fluoxetine 40 mg capsule 80 mg PO DAILY clonidine HCl 0.1 mg tablet 0.05 mg PO BID PRN (Reason: Anxiety) buspirone 30 mg tablet 1 tab PO BID propranolol 20 mg tablet 1 tab PO BID clonidine HCl 0.1 mg tablet 0.1 mg PO BEDTIME PRN (Reason: Insomnia) nicotine (polacrilex) 2 mg Gum 4 mg buccal Q2H PRN (Reason: Nicotine Cravings) 30 Days Qty: 120 0RF multivitamin with folic acid [Tab-A-Ninoska] 400 mcg Tablet 1 tab PO DAILY 30 Days Qty: 30 0RF olanzapine 10 mg Tablet 15 mg PO BEDTIME Qty: 30 0RF lamotrigine [Lamictal] 200 mg Tablet 200 mg PO BID Qty: 60 0RF Label Comments: PT TAKES QAM AND QHS olanzapine 5 mg Tablet 5 mg PO DAILY Qty: 30 0RF clonazepam [Klonopin] 1 mg Tablet 1 mg PO BID Qty: 60 0RF Label Comments: PT TAKES QAM AND QHS <ISHA Gonzalez - Last Filed: 05/30/22 11:33>
[2022-05-30 11:45] LABS: MANUAL DIFF FLAG NO
[2022-05-30 11:46] LABS: Basophils Absolute Auto 0.1 X10*3/uL (0.0-0.2); Basophils Percent Auto 0.8 % (0-2); Eosinophils Absolute Auto 0.2 X10*3/uL (0.0-0.4); Eosinophils Percent Auto 3.7 % (0-4); Hematocrit 43.3 % (42.0-52.0); Hemoglobin 14.8 g/dl (14.0-18.0); Imm Gran Abs Auto 0.02 X10*3/uL (0.00-0.03); Imm Gran Pct Auto 0.3 % (0.0-0.4); Lymphocytes Absolute Auto 0.6 X10*3/uL (1.2-4.9); Lymphocytes Percent Auto 9.4 % (20-40); Mean Corpuscular HGB Conc 34.2 g/dl (31.0-36.0); Mean Corpuscular Hemoglobin 32.6 pg (27.0-33.0); Mean Corpuscular Volume 95.4 fL (80.0-98.0); Mean Platelet Volume 8.9 fL (9.4-12.4); Monocytes Absolute Auto 0.5 X10*3/uL (0.1-1.2); Monocytes Percent Auto 8.3 % (2-11); Neutrophils Percent Auto 77.5 % (45-73); Platelet Count 172 X10*3/uL (160-400); Red Blood Count 4.54 X10*6/uL (4.60-5.80); Red Cell Distribution Width 13.6 % (11.0-16.0); White Blood Count 6.5 X10*3/uL (4.8-10.8)
[2022-05-30 11:50] LABS: Appearance Urine Clear; Color Urine Dark Yellow; Glucose Urine UA Negative (Negative); Leukocyte Esterase Urine Trace (Negative); Nitrite Urine Negative (Negative); PH 8.5 (5.0-9.0); Specific Gravity - Urine 1.025 (1.005-1.025); UMIC TRIGGER UACC YES; Urine Blood Negative (Negative); Urine Ketones Trace mg/dL (Negative); Urine Protein 30 (1+) mg/dL (Neg-Trace)
[2022-05-30 11:51] LABS: INTERNATIONAL NORM RATIO 1.1 (0.9-1.1); Prothrombin Time 12.7 SEC (10.0-13.1)
[2022-05-30 11:58] LABS: Bacteria Urine None Seen (None Seen); Hyaline Casts Urine 0-2 /LPF (0-2); RBC Urine 0-2 /HPF (0-2); Squamous Epithelial Cell Urine 0-2 /HPF (0-2); WBC Urine 0-5 /HPF (0-5)
[2022-05-30 12:03] LABS: Amphetamine Screen Urine Not Detected (Not Detect); Barbiturates, Urine Not Detected (Not Detect); Benzodiazepines Screen Urine Not Detected (Not Detect); Cannabinoid Screen Urine Not Detected (Not Detect); Cocaine Screen Urine Not Detected (Not Detect); Fentanyl, urine Not Detected (Not Detect); Opiate Screen Urine Not Detected (Not Detect); Phencyclidine Screen Urine Not Detected (Not Detect)
[2022-05-30 12:04] LABS: Lactic Acid 1.3 mmol/L (0.5-2.0)
[2022-05-30 12:10] LABS: Alanine Aminotransferase 224 U/L (0-40); Albumin Level 4.7 g/dL (3.5-5.0); Alkaline Phosphatase 120 U/L (39-117); Anion Gap 17 (12-20); Aspartate Amino Transferase 358 U/L (5-37); Bilirubin Total 1.9 mg/dL (0.0-1.0); Blood Urea Nitrogen 9 mg/dL (9-16); Calcium 9.7 mg/dL (8.4-10.2); Carbon Dioxide 23 mmol/L (22-29); Chloride 99 mmol/L (96-108); Creatinine Clr Calc Pharmacy 138.5; Estimated Glomerular Filt Rate > 60; Ethanol < 10 mg/dL; Glucose Random 106 mg/dL (60-115); Lipase 18 U/L (8-78); Magnesium 1.9 mg/dL (1.6-2.6); Potassium 4.3 mmol/L (3.3-5.1); Sodium 135 mmol/L (135-145); Total Protein 7.2 g/dL (6.5-8.0)
[2022-05-30 15:05] VITALS: BP 139/81; PULSE 93; RESP 18; TEMP 37.5; O2SAT 94
[2022-05-30] MEDS: Ibuprofen 800 MG TABLET PO (15:26)
[2022-05-30 15:42] LABS: Influenza A PCR POSITIVE (Negative); Influenza B PCR NEGATIVE (Negative); Resp Syncy Virus RNA Qual PCR NEGATIVE (Negative); SARS COV2 PCR INHOUSE NEGATIVE (Negative)
[2022-05-30] MEDS: traMADoL HCL 50 MG TABLET PO (17:39)
[2022-05-30] MEDS: Benzonatate 100 MG CAPSULE 200 MG PO (17:39)
== END 2022-05-30 17:43 | disposition home or self-care (01) ==
PROVIDERS: Physician Assistant Medical; Emergency Provider Internal Medicine; PCP Internal Medicine
DX: J11.1 Influenza due to unidentified influenza virus with other respiratory manifestations (principal); K70.30 Alcoholic cirrhosis of liver without ascites; F10.10 Alcohol abuse, uncomplicated; Y90.0 Blood alcohol level of less than 20 mg/100 ml; F17.210 Nicotine dependence, cigarettes, uncomplicated; Z79.899 Other long term (current) drug therapy; Z20.822 Contact with and (suspected) exposure to COVID-19
CPT/HCPCS: 0241U; 36415; 74176; 80053; 80307; 81001; 82077; 83605; 83690; 83735; 85025; 85610; 87040; 99284

== ENCOUNTER 2022-07-07 14:51 | Emergency (ER) | payer MEDICARE, MEDICAID, SELFPAY ==
--- NOTE | ~2022-07-07 | XR_ITS ---
EXAMINATION: XR CHEST CLINICAL INFORMATION: Shortness of breath and chest pain. COMPARISON: 03/28/2022 chest radiographs. TECHNIQUE: Frontal view of the chest was obtained. FINDINGS: No significant abnormality is noted involving the heart, lungs, mediastinum, bony thorax or soft tissues. XR/XR chest 1V IMPRESSION: No acute cardiopulmonary process.
--- NOTE | 2022-07-07 14:56 | ECG_ITS ---
Test Reason : sob Blood Pressure : / mmHG Vent. Rate : 062 BPM Atrial Rate : 062 BPM P-R Int : 162 ms QRS Dur : 092 ms QT Int : 420 ms P-R-T Axes : 022 -18 020 degrees QTc Int : 426 ms Normal sinus rhythm ST & T wave abnormality, consider anterior ischemia Abnormal ECG When compared with ECG of 21-DEC-2021 12:16, No significant change was found Referred By: Generic ED Physician Electronically Signed By:DESI DE LEÓN MD
[2022-07-07 15:16] VITALS: BP 136/78; PULSE 62; RESP 18; TEMP 36.9; O2SAT 96; BMI 35.6
--- NOTE | 2022-07-07 15:17 | ED_ITS ---
HPI - General Adult General Chief complaint: Chest Pain <ISHA Sanchez - Last Filed: 07/07/22 15:20> Stated complaint: chest pain lightheaded sob <ISHA Sanchez - Last Filed: 07/07/22 15:20> Time Seen by Provider: 07/07/22 21:02 <ISHA Sanchez - Last Filed: 07/07/22 15:20> History of Present Illness HPI narrative: 42 year old male hx of alcohol abuse, cirrhosis, sleep apnea, asthma, bipolar do, depression with history of sinus tachycardia on propranolol comes here for feeling short of breath for 2 days chest pain today noticed his heart rate was 51 and once was 47 in the ER patient's blood pressure was 122/73 with pulse rate of 60. No chest pain at this time does not feel anxious <Nazario Swartz MD - Last Filed: 07/08/22 03:56> Related Data Home medications: Home Medications Medication Instructions Recorded Confirmed buspirone 30 mg tablet 1 tab PO BID 12/08/20 12/08/20 clonidine HCl 0.1 mg tablet 0.05 mg PO BID PRN Anxiety 12/08/20 12/08/20 clonidine HCl 0.1 mg tablet 0.1 mg PO BEDTIME PRN Insomnia 12/08/20 12/08/20 fluoxetine 40 mg capsule 80 mg PO DAILY 12/08/20 12/08/20 propranolol 20 mg tablet 1 tab PO BID 12/08/20 12/08/20 Previous Rx's Medication Instructions Recorded clonazepam 1 mg tablet (Klonopin) 1 mg PO BID #60 tabs 03/23/20 lamotrigine 200 mg tablet 200 mg PO BID #60 tabs 03/23/20 (Lamictal) olanzapine 10 mg tablet 15 mg PO BEDTIME #30 tabs 03/23/20 olanzapine 5 mg tablet 5 mg PO DAILY #30 tabs 03/23/20 multivitamin with folic acid 400 1 tab PO DAILY 30 days #30 tabs 12/11/20 mcg tablet (Tab-A-Ninoska) nicotine (polacrilex) 2 mg gum 4 mg buccal Q2H PRN Nicotine 12/11/20 Cravings 30 days #120 ea benzonatate 200 mg capsule 200 mg PO TID PRN cough #30 caps 05/30/22 tramadol 50 mg tablet 50 mg PO Q6H PRN pain #20 tabs 05/30/22 <ISHA Sanchez - Last Filed: 07/07/22 15:20> Allergies/adverse reactions: Allergies Allergy/AdvReac Type Severity Reaction Status Date / Time mirtazapine [MIRTAZAPINE] Allergy Intermediate UNKNOWN Verified 12/21/21 12:10 sulfamethoxazole Allergy Unknown RASH Verified 12/21/21 12:10 [From BACTRIM] trimethoprim [From BACTRIM] Allergy Unknown RASH Verified 12/21/21 12:10 <ISHA Sanchez - Last Filed: 07/07/22 15:20> Review of Systems Review of Systems: Yes all other systems are reviewed and are negative <Nazario Swartz MD - Last Filed: 07/08/22 03:56> [facility] Past Medical History Medical History: Medical History Alcohol use disorder, mild, in controlled environment, abuse HTN (hypertension) Tachycardia Transaminitis <ISHA Sanchez - Last Filed: 07/07/22 15:20> Social History Social History: Social History Household Members: Family Housing: House Do you presently have visiting nurse or other home services: No Alcohol intake: former Patient Tobacco Use Status: Current everyday Tobacco user Tobacco use type: Cigarette Cigarette Packs Per Day: 0.5 Cigarettes Per Day: 10.0 Years Smoked: 12 Smoked in Last 30 Days: Yes e-Cigarette/Vaping Use: Currently Using Second Hand Smoke Exposure: Yes Use of substances other than those prescribed or required for medical reasons: No Advance Directives: No Advance Directives Information Provided: Yes service: No Sexual orientation: Don't Know <ISHA Sanchez - Last Filed: 07/07/22 15:20> Physical Exam ED Vital Signs: Vital Signs - 24 hr 07/07/22 15:16 07/07/22 19:35 07/07/22 22:34 Temperature 98.4 F 98.3 F Pulse Rate 62 60 59 Respiratory Rate 18 18 Blood Pressure 136/78 117/69 115/79 Pulse Oximetry 96 95 Oxygen Delivery Method Room Air Room Air 07/07/22 22:35 07/07/22 22:36 Temperature Pulse Rate 65 57 Respiratory Rate Blood Pressure 113/71 121/79 Pulse Oximetry Oxygen Delivery Method BMI result Body Mass Index 35.6 <ISHA Sanchez - Last Filed: 07/07/22 15:20> Vital Signs - 24 hr 07/07/22 15:16 07/07/22 19:35 07/07/22 22:34 Temperature 98.4 F 98.3 F Pulse Rate 62 60 59 Respiratory Rate 18 18 Blood Pressure 136/78 117/69 115/79 Pulse Oximetry 96 95 Oxygen Delivery Method Room Air Room Air 07/07/22 22:35 07/07/22 22:36 Temperature Pulse Rate 65 57 Respiratory Rate Blood Pressure 113/71 121/79 Pulse Oximetry Oxygen Delivery Method BMI result Body Mass Index 35.6 <Nazario Swartz MD - Last Filed: 07/08/22 03:56> Appearance: Alert. Oriented X3. No acute distress. Eyes: PERRLA, No Nystagmus ENT: Pharynx normal. Oral Mucosa moist Neck: Normal inspection. Neck supple. CVS: Sinus bradycardia with heart rate 58 no murmur or gallop Pulses normal. Respiratory: No respiratory distress. Equal air entry bilateral, no wheezing/rales/rhonchi Abdomen: Soft and nontender. Bowel sounds are present, no mass palpable, no CVA tenderness Skin: Skin warm and dry. Normal skin color. Normal skin turgor. Extremities: No lower extremity edema. No calf tenderness Neuro: Oriented X 3. No motor deficit. No sensory deficit.No cerebellar signs , cranial nerves II-XII intact <Nazario Swartz MD - Last Filed: 07/08/22 03:56> Course Course Course Narrative: This is an RME: Additional HPI, ROS, PE not included below will be deferred to primary provider. 42 year old male hx of alcohol abuse, cirrhosis, sleep apnea, asthma, bipolar do, depression presents w/ cp, sob, dizziness, malaise, near syncope, bradycardia per patient at home X 2 days. PE benign. Plan- labs, ekg, trop, cxr, bnp. PERC- negative <ISHA Sanchez - Last Filed: 07/07/22 15:20> Medical Decision Making Differential Diagnosis Patient has stable vitals on Propanol causing the bradycardia but no orthostatic hypertension advised to decrease the dose of propranolol to 10 mg twice daily instead of 20 and follow up with his PCP <Nazario Swartz MD - Last Filed: 07/08/22 03:56> Lab Data MDM Lab Attestation statement: I reviewed the patient's lab results. <Nazario Swartz MD - Last Filed: 07/08/22 03:56> Result Diagrams: 07/07/22 15:33 07/07/22 15:33 <ISHA Sanchez - Last Filed: 07/07/22 15:20> Labs: Lab Results 07/07/22 07/07/22 07/07/22 Range/Units 15:33 15:33 15:33 WBC 8.7 (4.8-10.8) X10*3/uL RBC 5.15 (4.60-5.80) X10*6/uL Hgb 16.2 (14.0-18.0) g/dl Hct 45.4 (42.0-52.0) % MCV 88.2 (80.0-98.0) fL MCH 31.5 (27.0-33.0) pg MCHC 35.7 (31.0-36.0) g/dl RDW 12.0 (11.0-16.0) % Plt Count 276 D (160-400) X10*3/uL MPV 10.3 (9.4-12.4) fL Immature Gran % (Auto) 0.2 (0.0-0.4) % Neut % (Auto) 71.3 (45-73) % Lymph % (Auto) 19.6 L (20-40) % [place] % (Auto) 5.6 (2-11) % Eos % (Auto) 2.6 (0-4) % Baso % (Auto) 0.7 (0-2) % Lymph # (Auto) 1.7 (1.2-4.9) X10*3/uL [place] # (Auto) 0.5 (0.1-1.2) X10*3/uL Eos # (Auto) 0.2 (0.0-0.4) X10*3/uL Baso # (Auto) 0.1 (0.0-0.2) X10*3/uL Abs Immat Gran (auto) 0.02 (0.00-0.03) X10*3/uL Absolute Neuts (auto) 6.2 (2.0-8.3) x10*3/uL Absolute Nucleated RBC 0.000 (0.0-0.012) X10*3/uL Nucleated RBC % (auto) 0.0 (0.0-0.2) /100WBC Sodium 139 (135-145) mmol/L Potassium 4.8 (3.3-5.1) mmol/L Chloride 103 (96-108) mmol/L Carbon Dioxide 25 (22-29) mmol/L Anion Gap 16 (12-20) BUN 12 (9-16) mg/dL Creatinine 1.24 (0.5-1.4) mg/dL Estim Creat Clear Calc 104.4 Estimated GFR > 60 Random Glucose 93 (60-115) mg/dL Calcium 10.1 (8.4-10.2) mg/dL Magnesium 2.2 (1.6-2.6) mg/dL Total Bilirubin 1.5 H (0.0-1.0) mg/dL AST 55 H (5-37) U/L ALT 82 H (0-40) U/L Alkaline Phosphatase 89 (39-117) U/L Troponin I High Sens < 3.5 (<3.5-35.0) ng/L B-Natriuretic Peptide (<100) pg/mL Total Protein 7.2 (6.5-8.0) g/dL Albumin 4.9 (3.5-5.0) g/dL COVID-19 (COLE) (Negative) COVID-19 Clin Com 07/07/22 07/07/22 Range/Units 15:33 15:33 WBC (4.8-10.8) X10*3/uL RBC (4.60-5.80) X10*6/uL Hgb (14.0-18.0) g/dl Hct (42.0-52.0) % MCV (80.0-98.0) fL MCH (27.0-33.0) pg MCHC (31.0-36.0) g/dl RDW (11.0-16.0) % Plt Count (160-400) X10*3/uL MPV (9.4-12.4) fL Immature Gran % (Auto) (0.0-0.4) % Neut % (Auto) (45-73) % Lymph % (Auto) (20-40) % [place] % (Auto) (2-11) % Eos % (Auto) (0-4) % Baso % (Auto) (0-2) % Lymph # (Auto) (1.2-4.9) X10*3/uL [place] # (Auto) (0.1-1.2) X10*3/uL Eos # (Auto) (0.0-0.4) X10*3/uL Baso # (Auto) (0.0-0.2) X10*3/uL Abs Immat Gran (auto) (0.00-0.03) X10*3/uL Absolute Neuts (auto) (2.0-8.3) x10*3/uL Absolute Nucleated RBC (0.0-0.012) X10*3/uL Nucleated RBC % (auto) (0.0-0.2) /100WBC Sodium (135-145) mmol/L Potassium (3.3-5.1) mmol/L Chloride (96-108) mmol/L Carbon Dioxide (22-29) mmol/L Anion Gap (12-20) BUN (9-16) mg/dL Creatinine (0.5-1.4) mg/dL Estim Creat Clear Calc Estimated GFR Random Glucose (60-115) mg/dL Calcium (8.4-10.2) mg/dL Magnesium (1.6-2.6) mg/dL Total Bilirubin (0.0-1.0) mg/dL AST (5-37) U/L ALT (0-40) U/L Alkaline Phosphatase (39-117) U/L Troponin I High Sens (<3.5-35.0) ng/L B-Natriuretic Peptide 25 (<100) pg/mL Total Protein (6.5-8.0) g/dL Albumin (3.5-5.0) g/dL COVID-19 (COLE) Negative (Negative) COVID-19 Clin Com See Note <ISHA Sanchez - Last Filed: 07/07/22 15:20> Lab Results 07/07/22 07/07/22 07/07/22 Range/Units 15:33 15:33 15:33 WBC 8.7 (4.8-10.8) X10*3/uL RBC 5.15 (4.60-5.80) X10*6/uL Hgb 16.2 (14.0-18.0) g/dl Hct 45.4 (42.0-52.0) % MCV 88.2 (80.0-98.0) fL MCH 31.5 (27.0-33.0) pg MCHC 35.7 (31.0-36.0) g/dl RDW 12.0 (11.0-16.0) % Plt Count 276 D (160-400) X10*3/uL MPV 10.3 (9.4-12.4) fL Immature Gran % (Auto) 0.2 (0.0-0.4) % Neut % (Auto) 71.3 (45-73) % Lymph % (Auto) 19.6 L (20-40) % [place] % (Auto) 5.6 (2-11) % Eos % (Auto) 2.6 (0-4) % Baso % (Auto) 0.7 (0-2) % Lymph # (Auto) 1.7 (1.2-4.9) X10*3/uL [place] # (Auto) 0.5 (0.1-1.2) X10*3/uL Eos # (Auto) 0.2 (0.0-0.4) X10*3/uL Baso # (Auto) 0.1 (0.0-0.2) X10*3/uL Abs Immat Gran (auto) 0.02 (0.00-0.03) X10*3/uL Absolute Neuts (auto) 6.2 (2.0-8.3) x10*3/uL Absolute Nucleated RBC 0.000 (0.0-0.012) X10*3/uL Nucleated RBC % (auto) 0.0 (0.0-0.2) /100WBC Sodium 139 (135-145) mmol/L Potassium 4.8 (3.3-5.1) mmol/L Chloride 103 (96-108) mmol/L Carbon Dioxide 25 (22-29) mmol/L Anion Gap 16 (12-20) BUN 12 (9-16) mg/dL Creatinine 1.24 (0.5-1.4) mg/dL Estim Creat Clear Calc 104.4 Estimated GFR > 60 Random Glucose 93 (60-115) mg/dL Calcium 10.1 (8.4-10.2) mg/dL Magnesium 2.2 (1.6-2.6) mg/dL Total Bilirubin 1.5 H (0.0-1.0) mg/dL AST 55 H (5-37) U/L ALT 82 H (0-40) U/L Alkaline Phosphatase 89 (39-117) U/L Troponin I High Sens < 3.5 (<3.5-35.0) ng/L B-Natriuretic Peptide (<100) pg/mL Total Protein 7.2 (6.5-8.0) g/dL Albumin 4.9 (3.5-5.0) g/dL COVID-19 (COLE) (Negative) COVID-19 Clin Com 07/07/22 07/07/22 Range/Units 15:33 15:33 WBC (4.8-10.8) X10*3/uL RBC (4.60-5.80) X10*6/uL Hgb (14.0-18.0) g/dl Hct (42.0-52.0) % MCV (80.0-98.0) fL MCH (27.0-33.0) pg MCHC (31.0-36.0) g/dl RDW (11.0-16.0) % Plt Count (160-400) X10*3/uL MPV (9.4-12.4) fL Immature Gran % (Auto) (0.0-0.4) % Neut % (Auto) (45-73) % Lymph % (Auto) (20-40) % [place] % (Auto) (2-11) % Eos % (Auto) (0-4) % Baso % (Auto) (0-2) % Lymph # (Auto) (1.2-4.9) X10*3/uL [place] # (Auto) (0.1-1.2) X10*3/uL Eos # (Auto) (0.0-0.4) X10*3/uL Baso # (Auto) (0.0-0.2) X10*3/uL Abs Immat Gran (auto) (0.00-0.03) X10*3/uL Absolute Neuts (auto) (2.0-8.3) x10*3/uL Absolute Nucleated RBC (0.0-0.012) X10*3/uL Nucleated RBC % (auto) (0.0-0.2) /100WBC Sodium (135-145) mmol/L Potassium (3.3-5.1) mmol/L Chloride (96-108) mmol/L Carbon Dioxide (22-29) mmol/L Anion Gap (12-20) BUN (9-16) mg/dL Creatinine (0.5-1.4) mg/dL Estim Creat Clear Calc Estimated GFR Random Glucose (60-115) mg/dL Calcium (8.4-10.2) mg/dL Magnesium (1.6-2.6) mg/dL Total Bilirubin (0.0-1.0) mg/dL AST (5-37) U/L ALT (0-40) U/L Alkaline Phosphatase (39-117) U/L Troponin I High Sens (<3.5-35.0) ng/L B-Natriuretic Peptide 25 (<100) pg/mL Total Protein (6.5-8.0) g/dL Albumin (3.5-5.0) g/dL COVID-19 (COLE) Negative (Negative) COVID-19 Clin Com See Note <Nazraio Swartz MD - Last Filed: 07/08/22 03:56> Independent Interpretation I performed an independent interpretation of an: EKG <Nazario Swartz MD - Last Filed: 07/08/22 03:56> Interpretation: Normal sinus rhythm heart rate 62 beats per minute poor progression of R- wave no acute ST-T changes no acute change from previous EKGs <Nazario Swartz MD - Last Filed: 07/08/22 03:56> Discharge Plan Discharge Clinical Impression: Bradycardia <ISHA Sanchez - Last Filed: 07/07/22 15:20> Patient Disposition: Home, Self-Care <ISHA Sanchez - Last Filed: 07/07/22 15:20> Instructions: Bradycardia (ED) <ISHA Sanchez - Last Filed: 07/07/22 15:20> Additional Instructions: Drink plenty of fluids Do not take Propanol if heart rate less than 80 Decrease the dose of propranolol to 10 mg twice daily if heart rate is above 80 Report to the ER if heart rate less than 40/dizziness/passing out <ISHA Sanchez - Last Filed: 07/07/22 15:20> Prescriptions: No Action fluoxetine 40 mg capsule 80 mg PO DAILY clonidine HCl 0.1 mg tablet 0.05 mg PO BID PRN (Reason: Anxiety) buspirone 30 mg tablet 1 tab PO BID propranolol 20 mg tablet 1 tab PO BID clonidine HCl 0.1 mg tablet 0.1 mg PO BEDTIME PRN (Reason: Insomnia) nicotine (polacrilex) 2 mg Gum 4 mg buccal Q2H PRN (Reason: Nicotine Cravings) 30 Days Qty: 120 0RF multivitamin with folic acid [Tab-A-Ninoska] 400 mcg Tablet 1 tab PO DAILY 30 Days Qty: 30 0RF olanzapine 10 mg Tablet 15 mg PO BEDTIME Qty: 30 0RF lamotrigine [Lamictal] 200 mg Tablet 200 mg PO BID Qty: 60 0RF Label Comments: PT TAKES QAM AND QHS olanzapine 5 mg Tablet 5 mg PO DAILY Qty: 30 0RF clonazepam [Klonopin] 1 mg Tablet 1 mg PO BID Qty: 60 0RF Label Comments: PT TAKES QAM AND QHS benzonatate 200 mg capsule 200 mg PO TID PRN (Reason: cough) Qty: 30 0RF tramadol 50 mg tablet 50 mg PO Q6H PRN (Reason: pain) Qty: 20 0RF <ISHA Sanchez - Last Filed: 07/07/22 15:20> Interventions: ED Discharge Assessment Last Done: 07/07/22 23:02 <ISHA Sanchez Last Filed: 07/07/22 15:20> Discharge Date/Time: 07/07/22 23:09 <ISHA Sanchez - Last Filed: 07/07/22 15:20>
[2022-07-07 15:42] LABS: MANUAL DIFF FLAG NO
[2022-07-07 15:44] LABS: Basophils Absolute Auto 0.1 X10*3/uL (0.0-0.2); Basophils Percent Auto 0.7 % (0-2); Eosinophils Absolute Auto 0.2 X10*3/uL (0.0-0.4); Eosinophils Percent Auto 2.6 % (0-4); Hematocrit 45.4 % (42.0-52.0); Hemoglobin 16.2 g/dl (14.0-18.0); Imm Gran Abs Auto 0.02 X10*3/uL (0.00-0.03); Imm Gran Pct Auto 0.2 % (0.0-0.4); Lymphocytes Absolute Auto 1.7 X10*3/uL (1.2-4.9); Lymphocytes Percent Auto 19.6 % (20-40); Mean Corpuscular HGB Conc 35.7 g/dl (31.0-36.0); Mean Corpuscular Hemoglobin 31.5 pg (27.0-33.0); Mean Corpuscular Volume 88.2 fL (80.0-98.0); Mean Platelet Volume 10.3 fL (9.4-12.4); Monocytes Absolute Auto 0.5 X10*3/uL (0.1-1.2); Monocytes Percent Auto 5.6 % (2-11); Neutrophils Absolute Auto 6.2 x10*3/uL (2.0-8.3); Neutrophils Percent Auto 71.3 % (45-73); Platelet Count 276 X10*3/uL (160-400); Red Blood Count 5.15 X10*6/uL (4.60-5.80); White Blood Count 8.7 X10*3/uL (4.8-10.8)
[2022-07-07 16:04] LABS: COVID-19 Test Negative (Negative); IDNOW Serial# BCCEAD1C
[2022-07-07 16:08] LABS: Alanine Aminotransferase 82 U/L (0-40); Albumin Level 4.9 g/dL (3.5-5.0); Alkaline Phosphatase 89 U/L (39-117); Anion Gap 16 (12-20); Aspartate Amino Transferase 55 U/L (5-37); Bilirubin Total 1.5 mg/dL (0.0-1.0); Blood Urea Nitrogen 12 mg/dL (9-16); Calcium 10.1 mg/dL (8.4-10.2); Carbon Dioxide 25 mmol/L (22-29); Chloride 103 mmol/L (96-108); Creatinine Clr Calc Pharmacy 104.4; Estimated Glomerular Filt Rate > 60; Glucose Random 93 mg/dL (60-115); Magnesium 2.2 mg/dL (1.6-2.6); Potassium 4.8 mmol/L (3.3-5.1); Sodium 139 mmol/L (135-145); Total Protein 7.2 g/dL (6.5-8.0)
[2022-07-07 16:09] LABS: B Type Natriuretic Peptide 25 pg/mL (<100)
[2022-07-07 16:28] LABS: Troponin-I High Sensitivity < 3.5 ng/L (<3.5-35.0)
[2022-07-07 19:35] VITALS: BP 117/69; PULSE 60; RESP 18; TEMP 36.8; O2SAT 95
--- NOTE | 2022-07-07 20:05 | MHC.EDTECH ---
EKG done on previous shift, this keno writer / runner charted time and date
--- NOTE | 2022-07-07 20:48 | PC.NURSE ---
PT A&Ox4, reports intermittent SOB all day today with some nonradiating chest discomfort to the left side lasting a few seconds. PT reports feeling dizzy and faint. VSS. Denies any pain.
[2022-07-07 22:34] VITALS: BP 115/79; PULSE 59
[2022-07-07 22:35] VITALS: BP 113/71; PULSE 65
[2022-07-07 22:36] VITALS: BP 121/79; PULSE 57
== END 2022-07-07 23:09 | disposition home or self-care (01) ==
PROVIDERS: Physician Assistant; Emergency Provider Internal Medicine; PCP Internal Medicine
DX: R00.1 Bradycardia, unspecified (principal); R06.02 Shortness of breath; Z20.822 Contact with and (suspected) exposure to COVID-19; I10 Essential (primary) hypertension; F17.210 Nicotine dependence, cigarettes, uncomplicated; Z79.899 Other long term (current) drug therapy
CPT/HCPCS: 71045; 80053; 83735; 83880; 84484; 85025; 87635; 93005; 99283; 99285

== ENCOUNTER 2022-07-27 07:22 | Inpatient (IN) | payer MEDICARE, MEDICAID, SELFPAY ==
--- NOTE | ~2022-07-27 | XR_ITS ---
EXAMINATION: XR ABDOMEN KUB CLINICAL INDICATION: Constipation COMPARISON: CT abdomen pelvis on 05/30/2022 TECHNIQUE: 3 views of the abdomen. FINDINGS: The bowel gas pattern is normal with no evidence of ileus or obstruction. No unusual soft tissue calcifications are noted. The bones are unremarkable. Moderate stool in the colon. XR/XR KUB IMPRESSION: Moderate stool in the colon.
[2022-07-27 07:38] VITALS: BP 153/94; PULSE 83; RESP 18; TEMP 36.4; O2SAT 96; BMI 33.2
[2022-07-27 07:51] LABS: Appearance Urine Clear; Color Urine Dark Yellow; Glucose Urine UA Negative (Negative); Leukocyte Esterase Urine Trace (Negative); Nitrite Urine Negative (Negative); PH 5.5 (5.0-9.0); Specific Gravity - Urine 1.025 (1.005-1.025); UMIC TRIGGER UACC YES; Urine Blood Negative (Negative); Urine Ketones 40 mg/dL (Negative); Urine Protein 30 (1+) mg/dL (Neg-Trace)
[2022-07-27 07:53] VITALS: BP 153/94; PULSE 83; RESP 18; TEMP 36.4; O2SAT 96
[2022-07-27 07:56] LABS: Bacteria Urine None Seen (None Seen); Hyaline Casts Urine 0-2 /LPF (0-2); RBC Urine 0-2 /HPF (0-2); Squamous Epithelial Cell Urine 0-2 /HPF (0-2); WBC Urine 0-5 /HPF (0-5)
[2022-07-27 07:57] LABS: MANUAL DIFF FLAG NO
[2022-07-27 07:58] LABS: Basophils Percent Auto 0.4 % (0-2); Eosinophils Absolute Auto 0.1 X10*3/uL (0.0-0.4); Eosinophils Percent Auto 1.4 % (0-4); Hematocrit 44.3 % (42.0-52.0); Hemoglobin 15.7 g/dl (14.0-18.0); Imm Gran Abs Auto 0.02 X10*3/uL (0.00-0.03); Imm Gran Pct Auto 0.3 % (0.0-0.4); Lymphocytes Absolute Auto 1.2 X10*3/uL (1.2-4.9); Lymphocytes Percent Auto 16.5 % (20-40); Mean Corpuscular HGB Conc 35.4 g/dl (31.0-36.0); Mean Corpuscular Hemoglobin 30.7 pg (27.0-33.0); Mean Corpuscular Volume 86.5 fL (80.0-98.0); Mean Platelet Volume 10.2 fL (9.4-12.4); Monocytes Absolute Auto 0.5 X10*3/uL (0.1-1.2); Monocytes Percent Auto 6.7 % (2-11); Neutrophils Absolute Auto 5.4 x10*3/uL (2.0-8.3); Neutrophils Percent Auto 74.7 % (45-73); Platelet Count 227 X10*3/uL (160-400); Red Blood Count 5.12 X10*6/uL (4.60-5.80); White Blood Count 7.2 X10*3/uL (4.8-10.8)
[2022-07-27 08:00] LABS: Amphetamine Screen Urine Not Detected (Not Detect); Barbiturates, Urine Not Detected (Not Detect); Benzodiazepines Screen Urine POSITIVE (Not Detect); Cannabinoid Screen Urine Not Detected (Not Detect); Cocaine Screen Urine Not Detected (Not Detect); Fentanyl, urine Not Detected (Not Detect); Opiate Screen Urine Not Detected (Not Detect); Phencyclidine Screen Urine Not Detected (Not Detect)
[2022-07-27 08:09] LABS: IDNOW Serial# 16C4AD1C
[2022-07-27 08:10] LABS: COVID-19 Test Negative (Negative)
[2022-07-27 08:17] LABS: Alanine Aminotransferase 49 U/L (0-40); Albumin Level 4.9 g/dL (3.5-5.0); Alkaline Phosphatase 75 U/L (39-117); Anion Gap 13 (12-20); Aspartate Amino Transferase 38 U/L (5-37); Bilirubin Total 1.8 mg/dL (0.0-1.0); Blood Urea Nitrogen 10 mg/dL (9-16); Calcium 10.1 mg/dL (8.4-10.2); Carbon Dioxide 27 mmol/L (22-29); Chloride 103 mmol/L (96-108); Creatinine Clr Calc Pharmacy 114.8; Estimated Glomerular Filt Rate > 60; Ethanol < 10 mg/dL; Glucose Random 105 mg/dL (60-115); Potassium 4.2 mmol/L (3.3-5.1); Sodium 139 mmol/L (135-145); Total Protein 7.3 g/dL (6.5-8.0)
[2022-07-27] MEDS: clonazePAM 1 MG TABLET PO ×2 (09:21→21:46)
--- NOTE | 2022-07-27 09:32 | ED_ITS ---
HPI - Psych General Chief Complaint: Psychiatric Symptoms Stated Complaint: Crisis Time Seen by Provider: 07/27/22 08:06 Source: patient Mode of arrival: ambulatory Limitations: no limitations History of Present Illness HPI Narrative: Patient is a 42-year-old male who presents to the emergency department for evaluation of suicidal ideations. Patient states that he has been having many life stressors including his mother's recent passing, financial support and issues with his home and his sister. He reports that today when at his sister's home he became very overwhelmed and began striking himself in the head. He is endorsing suicidal ideations with thoughts to cut his wrists and put all of his pills in his tea. he otherwise denies any physical complaints. He reports multiple hospitalizations for psychiatric related issues in the past, believes his most recent admission to be approximately 1 year ago. He states that he has not taken any of his medications yet today. 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 Related Data Home Medications Medication Instructions Recorded Confirmed clonidine HCl 0.1 mg tablet 0.1 mg PO BID 12/08/20 07/27/22 fluoxetine 40 mg capsule 80 mg PO DAILY 12/08/20 07/27/22 gabapentin 100 mg capsule 300 mg PO BEDTIME 07/27/22 07/27/22 propranolol 10 mg tablet 1 tab PO BID 07/27/22 07/27/22 Previous Rx's Medication Instructions Recorded clonazepam 1 mg tablet (Klonopin) 1 mg PO BID #60 tabs 03/23/20 lamotrigine 200 mg tablet 200 mg PO BID #60 tabs 03/23/20 (Lamictal) Allergies Allergy/AdvReac Type Severity Reaction Status Date / Time mirtazapine [MIRTAZAPINE] Allergy Intermediate UNKNOWN Verified 12/21/21 12:10 sulfamethoxazole Allergy Unknown RASH Verified 12/21/21 12:10 [From BACTRIM] trimethoprim [From BACTRIM] Allergy Unknown RASH Verified 12/21/21 12:10 Review of Systems Review of Systems: Constitutional : No Fever, No Chills ENT/Mouth : No Ear Pain, No Nasal Congestion, No sore throat Eyes: No Eye Pain, No Swelling, No Redness Cardiovascular : No Chest Pain, No SOB Respiratory : No Cough, No Sputum, No Dyspnea Gastrointestinal : No Nausea, No Vomiting, No Diarrhea, No Hematochezia, No Melena Genitourinary : No Dysuria, No Urinary Frequency, No Hematuria Musculoskeletal : No Myalgias Skin : No Skin Lesions, No rash Neuro : No Weakness, No Numbness, No Paresthesias, No Dizziness, No Headache Psych : positive Anxiety, positive Depression, positive SI, no HI Heme/Lymph: No Lymphadenopathy Endocrine : No Polyuria, No Polydipsia Yes all other systems are reviewed and are negative [facility] Past Medical History Attestation statement: The following information was validated with the patient. Source: old records reviewed Medical History Alcohol use disorder, mild, in controlled environment, abuse HTN (hypertension) Tachycardia Transaminitis Social History Social History Household Members: Family Housing: House Do you presently have visiting nurse or other home services: No Alcohol intake: former Patient Tobacco Use Status: Current everyday Tobacco user Tobacco use type: Cigarette Cigarette Packs Per Day: 0.5 Cigarettes Per Day: 10.0 Years Smoked: 12 Smoked in Last 30 Days: Yes e-Cigarette/Vaping Use: Currently Using Second Hand Smoke Exposure: Yes Use of substances other than those prescribed or required for medical reasons: No Advance Directives: No Advance Directives Information Provided: Yes Guardian: No service: No Sexual orientation: Don't Know Physical Exam Vital Signs: Vital Signs: Last Vital Signs Temp 98.3 F 07/27/22 14:00 Pulse 58 07/27/22 14:00 Resp 18 07/27/22 14:00 BP 125/86 07/27/22 14:00 Pulse Ox 97 07/27/22 14:00 O2 Del Method 07/27/22 14:00 BMI result Body Mass Index 33.2 Appearance: Alert.?Oriented to person, place and time. No acute distress.?Normal affect. Eyes: Pupils equal, round and reactive to light.? ENT: Pharynx normal.?? Neck: Normal inspection.? Neck supple.?? CVS: Heart sounds normal. Normal heart rate and rhythm.? Pulses normal.?? Respiratory: No respiratory distress.? Lung sounds clear to auscultation bilaterally?? Abdomen: Soft and non-tender. Normoactive bowel sounds. ? Skin: Skin warm and dry.? Normal skin color.? Extremities: No lower extremity edema. Neuro: Moves all extremities spontaneously. Sensation intact bilaterally. CN II- XII intact. No focal neuro deficits. Ambulates with normal steady gait. Course Reevaluation(s) Reevaluation #1: Drug abuse screen is positive for benzodiazepines however he is prescribed clonazepam, alcohol level below detectable limits. COVID-19 testing is negative. Urinalysis is without any evidence of infection. CBC and CMP are overall unremarkable, he does have elevated transaminases which appears consistent with prior levels. Patient will be placed in physician observation at this time, the reason for observation being he requires further time to be evaluated by care team as noted in MDM. Patient is agreeable with plan of care. Will complete his med rec, at this time placed orders for daily clonazepam and propranolol Time: 09:39 Medications Administered Discontinued Medications Generic Name Dose Route Start Last Admin Trade Name Freq PRN Reason Stop Dose Admin Clonazepam 1 mg 07/27/22 09:13 07/27/22 09:21 Clonazepam 1 Mg Tablet PO 07/27/22 09:14 1 mg ONCE ONE Administration Propranolol HCl 10 mg 07/27/22 09:36 07/27/22 09:47 Propranolol Hcl 10 Mg Tablet PO 07/27/22 09:37 10 mg ONCE ONE Administration Protocol Medical Decision Making Medical Decision Making [facility] Narrative: Patient is a 42-year-old male with past medical history of Alcohol use disorder, hypertension, transaminitis, major depressive disorder, bipolar disorder presents emergency department for evaluation of suicidal ideations. At the time of my examination he is without any physical complaints. He does appear anxious, however he is cooperative with staff. He is in no respiratory distress. Denies any known sick contacts. Will obtain basic labs in addition to COVID-19 testing for medical clearance. Patient will require referral to care team for evaluation/safe disposition and determination as to whether inpatient psychiatric services are required at this time Differential Diagnosis Differential Diagnoses: The differential diagnosis associated with the presentation includes (ETOH intoxication, major depressive disorder, anxiety, delirium, suicidal ideations) Lab Data [facility] Lab Attestation statement: I reviewed the patient's lab results. 07/27/22 07:52 07/27/22 07:52 Labs: Lab Results 03/01/23 03/01/23 03/01/23 Range/Units 07:41 07:41 07:41 WBC (4.8-10.8) X10*3/uL RBC (4.60-5.80) X10*6/uL Hgb (14.0-18.0) g/dl Hct (42.0-52.0) % MCV (80.0-98.0) fL MCH (27.0-33.0) pg MCHC (31.0-36.0) g/dl RDW (11.0-16.0) % Plt Count (160-400) X10*3/uL MPV (9.4-12.4) fL Immature Gran % (Auto) (0.0-0.4) % Neut % (Auto) (45-73) % Lymph % (Auto) (20-40) % [place] % (Auto) (2-11) % Eos % (Auto) (0-4) % Baso % (Auto) (0-2) % Lymph # (Auto) (1.2-4.9) X10*3/uL [place] # (Auto) (0.1-1.2) X10*3/uL Eos # (Auto) (0.0-0.4) X10*3/uL Baso # (Auto) (0.0-0.2) X10*3/uL Abs Immat Gran (auto) (0.00-0.03) X10*3/uL Absolute Neuts (auto) (2.0-8.3) x10*3/uL Absolute Nucleated RBC (0.0-0.012) X10*3/uL Nucleated RBC % (auto) (0.0-0.2) /100WBC Sodium (135-145) mmol/L Potassium (3.3-5.1) mmol/L Chloride (96-108) mmol/L Carbon Dioxide (22-29) mmol/L Anion Gap (12-20) BUN (9-16) mg/dL Creatinine (0.5-1.4) mg/dL Estim Creat Clear Calc Estimated GFR Random Glucose (60-115) mg/dL Calcium (8.4-10.2) mg/dL Total Bilirubin (0.0-1.0) mg/dL AST (5-37) U/L ALT (0-40) U/L Alkaline Phosphatase (39-117) U/L Total Protein (6.5-8.0) g/dL Albumin (3.5-5.0) g/dL Urine Color Dark Yellow Urine Appearance Clear Urine pH 5.5 (5.0-9.0) Ur Specific [place] 1.025 (1.005-1.025) Urine Protein 30 (1+) H (Neg-Trace) mg/dL Urine Glucose (UA) Negative (Negative) mg/dL Urine Ketones 40 (Negative) mg/dL Urine Blood Negative (Negative) Urine Nitrite Negative (Negative) Ur Leukocyte Esterase Trace H (Negative) Urine RBC 0-2 (0-2) /HPF Urine WBC 0-5 (0-5) /HPF Ur Squamous Epith Cells 0-2 (0-2) /HPF Urine Bacteria None Seen (None Seen) Hyaline Casts 0-2 (0-2) /LPF Urine Opiates Screen Not Detected (Not Detect) Urine Fentanyl Screen Not Detected (Not Detect) Ur Barbiturates Screen Not Detected (Not Detect) Ur Phencyclidine Scrn Not Detected (Not Detect) Ur Amphetamines Screen Not Detected (Not Detect) U Benzodiazepines Scrn POSITIVE H (Not Detect) Urine Cocaine Screen Not Detected (Not Detect) U Marijuana (THC) Screen Not Detected (Not Detect) Ethyl Alcohol mg/dL COVID-19 (COLE) Negative (Negative) COVID-19 Clin Com See Note 07/27/22 07/27/22 Range/Units 07:52 07:52 WBC 7.2 (4.8-10.8) X10*3/uL RBC 5.12 (4.60-5.80) X10*6/uL Hgb 15.7 (14.0-18.0) g/dl Hct 44.3 (42.0-52.0) % MCV 86.5 (80.0-98.0) fL MCH 30.7 (27.0-33.0) pg MCHC 35.4 (31.0-36.0) g/dl RDW 12.0 (11.0-16.0) % Plt Count 227 (160-400) X10*3/uL MPV 10.2 (9.4-12.4) fL Immature Gran % (Auto) 0.3 (0.0-0.4) % Neut % (Auto) 74.7 H (45-73) % Lymph % (Auto) 16.5 L (20-40) % [place] % (Auto) 6.7 (2-11) % Eos % (Auto) 1.4 (0-4) % Baso % (Auto) 0.4 (0-2) % Lymph # (Auto) 1.2 (1.2-4.9) X10*3/uL [place] # (Auto) 0.5 (0.1-1.2) X10*3/uL Eos # (Auto) 0.1 (0.0-0.4) X10*3/uL Baso # (Auto) 0.0 (0.0-0.2) X10*3/uL Abs Immat Gran (auto) 0.02 (0.00-0.03) X10*3/uL Absolute Neuts (auto) 5.4 (2.0-8.3) x10*3/uL Absolute Nucleated RBC 0.000 (0.0-0.012) X10*3/uL Nucleated RBC % (auto) 0.0 (0.0-0.2) /100WBC Sodium 139 (135-145) mmol/L Potassium 4.2 (3.3-5.1) mmol/L Chloride 103 (96-108) mmol/L Carbon Dioxide 27 (22-29) mmol/L Anion Gap 13 (12-20) BUN 10 (9-16) mg/dL Creatinine 1.09 (0.5-1.4) mg/dL Estim Creat Clear Calc 114.8 Estimated GFR > 60 Random Glucose 105 (60-115) mg/dL Calcium 10.1 (8.4-10.2) mg/dL Total Bilirubin 1.8 H (0.0-1.0) mg/dL AST 38 H (5-37) U/L ALT 49 H (0-40) U/L Alkaline Phosphatase 75 (39-117) U/L Total Protein 7.3 (6.5-8.0) g/dL Albumin 4.9 (3.5-5.0) g/dL Urine Color Urine Appearance Urine pH (5.0-9.0) Ur Specific [place] (1.005-1.025) Urine Protein (Neg-Trace) mg/dL Urine Glucose (UA) (Negative) mg/dL Urine Ketones (Negative) mg/dL Urine Blood (Negative) Urine Nitrite (Negative) Ur Leukocyte Esterase (Negative) Urine RBC (0-2) /HPF Urine WBC (0-5) /HPF Ur Squamous Epith Cells (0-2) /HPF Urine Bacteria (None Seen) Hyaline Casts (0-2) /LPF Urine Opiates Screen (Not Detect) Urine Fentanyl Screen (Not Detect) Ur Barbiturates Screen (Not Detect) Ur Phencyclidine Scrn (Not Detect) Ur Amphetamines Screen (Not Detect) U Benzodiazepines Scrn (Not Detect) Urine Cocaine Screen (Not Detect) U Marijuana (THC) Screen (Not Detect) Ethyl Alcohol < 10 mg/dL COVID-19 (COLE) (Negative) COVID-19 Clin Com External Record Review External record reviewed: Outpatient record Discharge Plan Discharge Clinical Impression: Suicidal ideation, Major depressive disorder with current active episode, Bipolar 1 disorder, depressed, severe Patient Disposition: Still a Patient Prescriptions: No Action fluoxetine 40 mg capsule 80 mg PO DAILY clonidine HCl 0.1 mg tablet 0.1 mg PO BID lamotrigine [Lamictal] 200 mg Tablet 200 mg PO BID Qty: 60 0RF Label Comments: PT TAKES QAM AND QHS clonazepam [Klonopin] 1 mg Tablet 1 mg PO BID Qty: 60 0RF Label Comments: PT TAKES QAM AND QHS propranolol 10 mg tablet 1 tab PO BID gabapentin 100 mg capsule 300 mg PO BEDTIME Interventions: Winn-Suicide Risk Severity Scale Last Done: 07/27/22 07:53
[2022-07-27] MEDS: Propranolol HCL 10 MG TABLET PO ×2 (09:47→21:46)
--- NOTE | 2022-07-27 10:00 | PHA.MEDREC ---
Pharmacy Consult ? Medication Reconciliation Pharmacy has completed the medication reconciliation. Patient reported all medications. Patient reported he stop buspar over a month ago but would like to be re-initiated because it seemed to help. Reported he stop the Zyprexa 2 months ago and he has lost 40 pounds since he stop the mediations. Karlee Blandon, LaneD
--- NOTE | 2022-07-27 10:58 | PC.NURSE ---
Pts sister called stating that the pt stopped taking his Zyprexa a few weeks ago because he has been trying to lose weight and pt believes the medication has been preventing that. Sister can be contacted at [phone]
--- NOTE | 2022-07-27 12:21 | MHC.CARE ---
Patient was evaluated by the CARE Team and will require an impatient admission, written assessment to follow.
[2022-07-27 14:00] VITALS: BP 125/86; PULSE 58; RESP 18; TEMP 36.8; O2SAT 97
[2022-07-27 21:14] VITALS: BP 136/88; PULSE 76; RESP 16; TEMP 36.5; O2SAT 96; BMI 32.8
[2022-07-27] MEDS: lamoTRIgine 100 MG TABLET 200 MG PO (21:45)
[2022-07-27] MEDS: cloNIDine HCL 0.1 MG TABLET PO (21:45)
[2022-07-27] MEDS: Gabapentin 300 MG CAPSULE PO (21:46)
--- NOTE | 2022-07-27 21:56 | PC.ADMIT ---
Pt is a 42years old male admitted on CV for SI. Pt is known to [facility] from several hospitalizations here over the last 10years. Pt is alert and oriented X4, VSS, Covid negative, Tox screen positive for Benzos. Pt is calm and cooperative, good insight and judgment. Pt appears depressed and reports that his situation took a spiral dive after the of his mother in October 2021. Speech is normal with regular rhythm, tone, and citlaly. Eye contact is good. Pt denies SI/HI at this time. Reports being safe. Pt endorses depression and anxiety (5/10). Pt reports he was diagnosed with liver diseases because of excessive drinking and has since remained sober. Pt uses vape and requests for nicotine replacement. Admission orders obtained.
[2022-07-28] MEDS: cloNIDine HCL 0.1 MG TABLET PO ×2 (08:15→20:13)
[2022-07-28] MEDS: FLUoxetine HCl 20 MG CAPSULE 80 MG PO (08:15)
[2022-07-28] MEDS: lamoTRIgine 100 MG TABLET 200 MG PO ×2 (08:15→20:14)
[2022-07-28] MEDS: clonazePAM 1 MG TABLET PO ×2 (08:16→20:13)
[2022-07-28] MEDS: Propranolol HCL 10 MG TABLET PO ×2 (08:17→20:14)
[2022-07-28 08:58] VITALS: BP 140/80; PULSE 68; RESP 18; TEMP 36.5; O2SAT 96
[2022-07-28 09:31] LABS: Estimated Average Glucose 88 mg/dL; Hemoglobin A1c % 4.7 %
[2022-07-28 09:36] LABS: Alanine Aminotransferase 48 U/L (0-40); Albumin Level 4.8 g/dL (3.5-5.0); Alkaline Phosphatase 73 U/L (39-117); Aspartate Amino Transferase 39 U/L (5-37); Bilirubin Direct 0.3 mg/dL (0.0-0.5); Bilirubin Total 1.3 mg/dL (0.0-1.0); Cholesterol 249 mg/dL; HDL Cholesterol 27 mg/dL; LDL Cholesterol Calculated 197 mg/dl; Total Protein 7.2 g/dL (6.5-8.0); Triglycerides 129 mg/dL
[2022-07-28 09:40] LABS: TSH reflex Free T4 0.85 uIU/mL (0.32-4.0)
[2022-07-28 16:02] VITALS: BP 112/73; PULSE 62; RESP 18; TEMP 36.4; O2SAT 96
--- NOTE | 2022-07-28 16:51 | HO.PSYADMNOT ---
HPI Date of Service: 07/28/22 Chief Complaint: SI Sources of Information: patient interviewed, chart reviewed and crisis/core team assessment reviewed Additional Sources of Information: Lidia-sister Father suicided when pt was age 11- he never recovered Mom suddenly in October 2021. Cousin Dagoberto, age 50 hung himself 4-5 months ago which brought back the trauma of fathers loss for both of them. Pt has lived in the family home for his entire life-he has never lived alone until mom Needs life skills, a sponsor, guidance and structure. Has other siblings that are >20 years older. Pt and Lidia grew up together Sadie-sister who is [facility] [phone] Family believes pt has been manic in the past. HPI Subjective Notes: Frost Warning and Conditional Voluntary Healthcare Proxy: No Guardianship: No Medical Problems Affecting Mental Status: No Narrative: 42 yo male, hx of depression, ?bipolar sx, 2 months sober, stopped Olanzapine ~60 days ago and is feeling destabilized. Grieving the loss of his mom in October 2021, and worries about his finances. Reports he is unsafe at home, presenting with SI, hopelessness and needing increased intervention. Reports very sad since he lost his mother. He sold the family home to his sister, got an apartment. Stopped Olanzapine-after gaining 60 lbs in 6 months and sleeping all of the time-tapered and now struggles with sleep anxiety, however has lost 40 lbs off olanzapine and alcohol. Started Gabapentin for sleep, but he feels funny and groggy after taking it. Reports that his breaking point hit 2 days ago when he became upset at sister's home-her water heater and circuit breaker broke, the landlord was not helpful and he had to tackle it. 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 Reports he has a history of lability I can snap , impulsivity with spending and anger when driving along with paranoia, obsessive thoughts and tendency to fixate on issues. Past Psychiatric History: Hospital stays: Last admission to [facility] 2013. He had ECT at that time. has had at least 3 hosps. also has done PHP at least once, which he found helpful, and some [facility] stays. no h/o suicide attempts (but did place a plastic bag over his head during [facility] stay once). h/o SIB - cutting. has required stitches in the past. also slapping himself in the face. Therapist is HOANG Pang. Psychiatrist is HOANG Sanchez. HISTORY OF SEROTONIN SYNDROME Medical Evaluation Reviewed: Yes [facility] Medical History Alcohol use disorder, mild, in controlled environment, abuse HTN (hypertension) Tachycardia Transaminitis Narrative: OSA_Family will bring in CPAP Family History: Father committed suicide. alcohol use disorder. sister - alcohol use disorder. Social History: Lives with his mother. youngest of 4 children. father suicided when pt was 9 yo. 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 single. No children. Substance History: Sober from alcohol x 2 months. Trauma History: Father's suicide Diagnostics Vital Signs (24Hr): Vital Signs - 24 hr 07/27/22 21:14 07/28/22 08:58 07/28/22 16:02 Temperature 97.7 F 97.7 F 97.6 F Pulse Rate 76 68 62 Respiratory Rate 16 18 18 Blood Pressure 136/88 140/80 H 112/73 Pulse Oximetry 96 96 96 Oxygen Delivery Method Room Air Room Air Room Air BMI result Body Mass Index 32.8 Labs 07/27/22 07:52 07/27/22 07:52 Labs: Laboratory Results - last 48 hr 07/27/22 07/27/22 07/27/22 07:41 07:41 07:41 WBC RBC Hgb Hct MCV MCH MCHC RDW Plt Count MPV Immature Gran % (Auto) Neut % (Auto) Lymph % (Auto) Millard % (Auto) Eos % (Auto) Baso % (Auto) Lymph # (Auto) Millard # (Auto) Eos # (Auto) Baso # (Auto) Abs Immat Gran (auto) Absolute Neuts (auto) Absolute Nucleated RBC Nucleated RBC % (auto) Sodium Potassium Chloride Carbon Dioxide Anion Gap BUN Creatinine Estim Creat Clear Calc Estimated GFR Random Glucose Estimat Average Glucose Hemoglobin A1c % Calcium Total Bilirubin Direct Bilirubin AST ALT Alkaline Phosphatase Total Protein Albumin Triglycerides Cholesterol LDL Cholesterol, Calc HDL Cholesterol TSH Urine Color Dark Yellow Urine Appearance Clear Urine pH 5.5 Ur Specific [place] 1.025 Urine Protein 30 (1+) H Urine Glucose (UA) Negative Urine Ketones 40 Urine Blood Negative Urine Nitrite Negative Ur Leukocyte Esterase Trace H Urine RBC 0-2 Urine WBC 0-5 Ur Squamous Epith Cells 0-2 Urine Bacteria None Seen Hyaline Casts 0-2 Urine Opiates Screen Not Detected Urine Fentanyl Screen Not Detected Ur Barbiturates Screen Not Detected Ur Phencyclidine Scrn Not Detected Ur Amphetamines Screen Not Detected U Benzodiazepines Scrn POSITIVE H Urine Cocaine Screen Not Detected U Marijuana (THC) Screen Not Detected Ethyl Alcohol COVID-19 (COLE) Negative COVID-19 Clin Com See Note 07/27/22 07/27/22 07/28/22 07:52 07:52 08:38 WBC 7.2 RBC 5.12 Hgb 15.7 Hct 44.3 MCV 86.5 MCH 30.7 MCHC 35.4 RDW 12.0 Plt Count 227 MPV 10.2 Immature Gran % (Auto) 0.3 Neut % (Auto) 74.7 H Lymph % (Auto) 16.5 L Millard % (Auto) 6.7 Eos % (Auto) 1.4 Baso % (Auto) 0.4 Lymph # (Auto) 1.2 Millard # (Auto) 0.5 Eos # (Auto) 0.1 Baso # (Auto) 0.0 Abs Immat Gran (auto) 0.02 Absolute Neuts (auto) 5.4 Absolute Nucleated RBC 0.000 Nucleated RBC % (auto) 0.0 Sodium 139 Potassium 4.2 Chloride 103 Carbon Dioxide 27 Anion Gap 13 BUN 10 Creatinine 1.09 Estim Creat Clear Calc 114.8 Estimated GFR > 60 Random Glucose 105 Estimat Average Glucose Hemoglobin A1c % Calcium 10.1 Total Bilirubin 1.8 H 1.3 H Direct Bilirubin 0.3 AST 38 H 39 H ALT 49 H 48 H Alkaline Phosphatase 75 73 Total Protein 7.3 7.2 Albumin 4.9 4.8 Triglycerides 129 Cholesterol 249 LDL Cholesterol, Calc 197 HDL Cholesterol 27 TSH 0.85 Urine Color Urine Appearance Urine pH Ur Specific [place] Urine Protein Urine Glucose (UA) Urine Ketones Urine Blood Urine Nitrite Ur Leukocyte Esterase Urine RBC Urine WBC Ur Squamous Epith Cells Urine Bacteria Hyaline Casts Urine Opiates Screen Urine Fentanyl Screen Ur Barbiturates Screen Ur Phencyclidine Scrn Ur Amphetamines Screen U Benzodiazepines Scrn Urine Cocaine Screen U Marijuana (THC) Screen Ethyl Alcohol < 10 COVID-19 (COLE) COVID-19 Signature 07/28/22 08:38 WBC RBC Hgb Hct MCV MCH MCHC RDW Plt Count MPV Immature Gran % (Auto) Neut % (Auto) Lymph % (Auto) Millard % (Auto) Eos % (Auto) Baso % (Auto) Lymph # (Auto) Millard # (Auto) Eos # (Auto) Baso # (Auto) Abs Immat Gran (auto) Absolute Neuts (auto) Absolute Nucleated RBC Nucleated RBC % (auto) Sodium Potassium Chloride Carbon Dioxide Anion Gap BUN Creatinine Estim Creat Clear Calc Estimated GFR Random Glucose Estimat Average Glucose 88 Hemoglobin A1c % 4.7 Calcium Total Bilirubin Direct Bilirubin AST ALT Alkaline Phosphatase Total Protein Albumin Triglycerides Cholesterol LDL Cholesterol, Calc HDL Cholesterol TSH Urine Color Urine Appearance Urine pH Ur Specific [place] Urine Protein Urine Glucose (UA) Urine Ketones Urine Blood Urine Nitrite Ur Leukocyte Esterase Urine RBC Urine WBC Ur Squamous Epith Cells Urine Bacteria Hyaline Casts Urine Opiates Screen Urine Fentanyl Screen Ur Barbiturates Screen Ur Phencyclidine Scrn Ur Amphetamines Screen U Benzodiazepines Scrn Urine Cocaine Screen U Marijuana (THC) Screen Ethyl Alcohol COVID-19 (COLE) COVID-19 Signature Meds/Allergies Meds Home Medications Medication Instructions Recorded Confirmed Type clonidine HCl 0.1 mg tablet 0.1 mg PO BID 12/08/20 07/27/22 History fluoxetine 40 mg capsule 80 mg PO DAILY 12/08/20 07/27/22 History gabapentin 100 mg capsule 300 mg PO BEDTIME 07/27/22 07/27/22 History propranolol 10 mg tablet 1 tab PO BID 07/27/22 07/27/22 History Allergies Allergies Allergy/AdvReac Type Severity Reaction Status Date / Time mirtazapine [MIRTAZAPINE] Allergy Intermediate UNKNOWN Verified 12/21/21 12:10 sulfamethoxazole Allergy Unknown RASH Verified 12/21/21 12:10 [From BACTRIM] trimethoprim [From BACTRIM] Allergy Unknown RASH Verified 12/21/21 12:10 Mental Status Exam Mental Status Exam Patient Appearance: Appropriate Patient Orientation: Person, Place, Time and Situation Level of Consciousness: Alert Patient Behavior: Appropriate, Talkative, Cooperative and Good Eye Contact Mood Description: Depressed Affect Description: Flat Patient Cognition Impaired: No Ability to Follow Directions: Good Speech Pattern: Spontaneous Speech Memory Description: Intact Delusions: Not Present Perceptual Disturbances: Depersonalization Thought Process: Intact, Distracted and Rumination Thought Content: positive for Circumstantial and positive for Suicidal Ideation Depressive Symptoms: Difficulty Sleeping, Hopelessness, Thoughts of /Suicide, Low Self Esteem and Difficulty Concentrating Judgement: Fair Assessment & Plan Assessment & Plan (1) Bipolar 1 disorder, depressed, severe: Status: Acute Code(s): F31.4 - Bipolar disorder, current episode depressed, severe, without psychotic features (2) Alcohol use disorder, severe, in early remission: Status: Acute Code(s): F10.21 - Alcohol dependence, in remission (3) Obsessive compulsive disorder: Status: Acute Qualifiers: Obsessive-compulsive disorder type: unspecified Qualified Code(s): F42.9 - Obsessive-compulsive disorder, unspecified Code(s): F42.9 - Obsessive-compulsive disorder, unspecified Plan 42 yo male, 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 Pt had been managed on Olanzapine/Fluoxetine but stopped due to sedation and weight gain. Plan: [place] 300 mg HS ? Lamictal trial with [place] ?Invega if needed-pt wanting to give his liver a rest due to increase in LFT's from alcohol use. Collateral contacts, referrals, diagnostics. Patient educated on: medication risk/benefits and therapeutic strategies Informed Consent: understands Reason for continued inpatient stay Substantial Risk for: inability to function and rapid decompensation Statement Statement: I have reviewed the history and physical and performed a pertinent examination on my patient. No changes have occurred unless specified. If the History and Physical was not performed prior to admission, the Hospitalist's service will be consulted for completing the admission physical. Time Spent With Patient Time: Total time managing care of this patient today 60 minutes.
[2022-07-28] MEDS: traZODone HCL 50 MG TABLET PO (20:14)
[2022-07-28] MEDS: Gabapentin 300 MG CAPSULE PO (20:14)
[2022-07-28] MEDS: Lithium Carbonate ER 450 MG TABLET.ER PO (20:14)
[2022-07-29 06:00] VITALS: BP 111/63; PULSE 83; RESP 12; TEMP 36.2; O2SAT 98
[2022-07-29] MEDS: cloNIDine HCL 0.1 MG TABLET PO ×2 (08:12→20:58)
[2022-07-29] MEDS: Propranolol HCL 10 MG TABLET PO ×2 (08:12→21:00)
[2022-07-29] MEDS: lamoTRIgine 100 MG TABLET 200 MG PO ×2 (08:12→20:57)
[2022-07-29] MEDS: Multivitamin TABLET 1 TAB PO (08:13)
[2022-07-29] MEDS: FLUoxetine HCl 20 MG CAPSULE 80 MG PO (08:13)
[2022-07-29] MEDS: clonazePAM 1 MG TABLET PO ×2 (08:13→20:57)
[2022-07-29 09:58] LABS: Folate 8.4 ng/mL (> or = 4.0); Vitamin B12 396 pg/mL (200-900); Vitamin D 25-OH Total 21.6 ng/mL (>30)
--- NOTE | 2022-07-29 14:24 | P.PNPSI_ITS ---
Subjective Subjective Date of Service: 07/29/22 Reason For Visit: SI Subjective Notes: Conditional Voluntary Healthcare Proxy: No Guardianship: No Medical Problems Affecting Mental Status: No Interim History: Tolerating Mcneil Asks to return to Olanzapine low dose for HS as he has realized the benefits. 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 Reports currently no solid BM in 2 months. Approx 6 weeks ago he began a GI intervention as he experienced constipation-used GoLytely, Colace, Miralax. Currently no BM in 10 days- will begin with KUB. Medication Compliance: Yes Side effects from medications: No Attending Groups: Yes Review of Systems Acute medical concerns: No Review of Systems: This afternoon, discussed constipation. Mental Status Exam Mental Status Exam Patient Appearance: Appropriate Patient Orientation: Person, Place, Time and Situation Level of Consciousness: Alert Patient Behavior: Appropriate, Talkative, Cooperative and Good Eye Contact Mood Description: Depressed Affect Description: Flat Patient Cognition Impaired: No Ability to Follow Directions: Good Speech Pattern: Spontaneous Speech Memory Description: Intact Delusions: Not Present Perceptual Disturbances: Depersonalization Thought Process: Intact, Distracted and Rumination Thought Content: positive for Circumstantial Depressive Symptoms: Difficulty Sleeping, Hopelessness, Thoughts of /Suicide, Low Self Esteem and Difficulty Concentrating Judgement: Fair Diagnostics Vital Signs (24Hr): Vital Signs - 24 hr 07/28/22 16:02 07/29/22 06:00 Temperature 97.6 F 97.2 F Pulse Rate 62 83 Respiratory Rate 18 12 Blood Pressure 112/73 111/63 Pulse Oximetry 96 98 Oxygen Delivery Method Room Air Room Air BMI result Body Mass Index 32.8 Labs 07/27/22 07:52 07/27/22 07:52 Labs: Laboratory Results - last 48 hr 07/28/22 07/28/22 07/29/22 08:38 08:38 08:40 Estimat Average Glucose 88 Hemoglobin A1c % 4.7 Total Bilirubin 1.3 H Direct Bilirubin 0.3 AST 39 H ALT 48 H Alkaline Phosphatase 73 Total Protein 7.2 Albumin 4.8 Triglycerides 129 Cholesterol 249 LDL Cholesterol, Calc 197 HDL Cholesterol 27 Vitamin B12 396 25-OH Vitamin D Total 21.6 Folate 8.4 TSH 0.85 Medications Medications Current Medications Acetaminophen (Acetaminophen 325 Mg Tablet) 650 mg PO Q6H PRN PRN Reason: Headache/Pain Mild Scale (1-3) Al Hydroxide/Mg Hydroxide (Magnesium Hydrox/Alum Hydrox 30 Ml Oral.Susp) 30 ml PO Q6H PRN PRN Reason: Heartburn/Nausea Clonazepam (Clonazepam 1 Mg Tablet) 1 mg PO BID [facility] Last Admin: 07/29/22 08:13 Dose: 1 mg Clonidine HCl (Clonidine Hcl 0.1 Mg Tablet) 0.1 mg PO BID [facility]; Protocol Last Admin: 07/29/22 08:12 Dose: 0.1 mg Fluoxetine HCl (Fluoxetine Hcl 20 Mg Capsule) 80 mg PO DAILY [facility] Last Admin: 07/29/22 08:13 Dose: 80 mg Gabapentin (Gabapentin 300 Mg Capsule) 300 mg PO BEDTIME [facility] Last Admin: 07/28/22 20:14 Dose: 300 mg Hydroxyzine HCl (Hydroxyzine Hcl 25 Mg Tablet) 25 mg PO Q6H PRN PRN Reason: Anxiety Lamotrigine (Lamotrigine 100 Mg Tablet) 200 mg PO BID [facility] Last Admin: 07/29/22 08:12 Dose: 200 mg Mcneil Carbonate (Mcneil Carbonate Er 450 Mg Tablet.Er) 450 mg PO BEDTIME [facility] Last Admin: 07/28/22 20:14 Dose: 450 mg Magnesium Hydroxide (Milk Of Magnesia 30 Ml Oral.Susp) 30 ml PO DAILY PRN PRN Reason: Constipation Multivitamins/Vitamin C (Multivitamin Tablet) 1 tab PO DAILY [facility] Last Admin: 07/29/22 08:13 Dose: 1 tab Nicotine Polacrilex (Nicotine Polacrilex 2 Mg Gum) 4 mg BUCCAL Q2H PRN PRN Reason: Nicotine Cravings Nicotine Polacrilex (Nicotine Polacrilex 2 Mg Gum) 2 mg BUCCAL Q2H PRN PRN Reason: Nicotine Cravings Olanzapine (Olanzapine 5 Mg Tablet) 5 mg PO TID PRN PRN Reason: agitation Propranolol HCl (Propranolol Hcl 10 Mg Tablet) 10 mg PO BID [facility]; Protocol Last Admin: 07/29/22 08:12 Dose: 10 mg Trazodone HCl (Trazodone Hcl 50 Mg Tablet) 50 mg PO BEDTIME MRX1 PRN PRN Reason: Insomnia Last Admin: 07/28/22 20:14 Dose: 50 mg Allergies Allergies Allergy/AdvReac Type Severity Reaction Status Date / Time mirtazapine [MIRTAZAPINE] Allergy Intermediate UNKNOWN Verified 12/21/21 12:10 sulfamethoxazole Allergy Unknown RASH Verified 12/21/21 12:10 [From BACTRIM] trimethoprim [From BACTRIM] Allergy Unknown RASH Verified 12/21/21 12:10 Assessment & Plan Assessment & Plan (1) Bipolar 1 disorder, depressed, severe: Status: Acute Code(s): F31.4 - Bipolar disorder, current episode depressed, severe, without psychotic features (2) Obsessive compulsive disorder: Qualifiers: Obsessive-compulsive disorder type: unspecified Qualified Code(s): F42.9 - Obsessive-compulsive disorder, unspecified Status: Acute Code(s): F42.9 - Obsessive-compulsive disorder, unspecified (3) Alcohol use disorder, severe, in early remission: Status: Acute Code(s): F10.21 - Alcohol dependence, in remission Plan 07/29/22: KUB- No BM in 10 days. Olanzapine 5 mg HS, continue PRN Continue Mcneil Patient educated on: medication risk/benefits, therapeutic strategies and medical condition Informed Consent: understands and further education needed Reason for contiued inpatient stay Substantial Risk for: med/psych decompensation Time Spent With Patient Time: Total time managing care of this patient today 25 minutes.
[2022-07-29 16:08] VITALS: BP 125/72; PULSE 56; TEMP 36.9; O2SAT 97
[2022-07-29] MEDS: Lithium Carbonate ER 450 MG TABLET.ER PO (20:57)
[2022-07-29] MEDS: Gabapentin 300 MG CAPSULE PO (20:57)
[2022-07-29] MEDS: OLANZapine 5 MG TABLET PO (20:57)
--- NOTE | 2022-07-29 21:39 | MHC.RECOVSUP ---
? Reason for consult:ETOH o? Current location:[facility]? o? Identified substance use concern:? -? Support ? Intervention: o? Community resources provided o? Harm reduction discussion ? Plan: o? Follow up tomorrow? ? Additional information:RC met with pt and discussed what recovery coaches mission is as far as supporting recoveries with connecting to the recovery community and helping identify triggers. PT was provided with recovery resources to [place] and [facility], Pt stated he'd like to work with a professional athletes coach.
[2022-07-30] MEDS: cloNIDine HCL 0.1 MG TABLET PO ×2 (08:10→19:25)
[2022-07-30] MEDS: Propranolol HCL 10 MG TABLET PO ×2 (08:10→19:25)
[2022-07-30] MEDS: clonazePAM 1 MG TABLET PO ×2 (08:10→19:25)
[2022-07-30] MEDS: lamoTRIgine 100 MG TABLET 200 MG PO ×2 (08:10→19:25)
[2022-07-30] MEDS: FLUoxetine HCl 20 MG CAPSULE 80 MG PO (08:10)
[2022-07-30] MEDS: Multivitamin TABLET 1 TAB PO (08:11)
[2022-07-30 08:13] VITALS: BP 120/71; PULSE 61; RESP 14; TEMP 36.2; O2SAT 97
--- NOTE | 2022-07-30 09:47 | HO.PSYCHPN ---
Subjective Subjective Date of Service: 07/30/22 Reason For Visit: SI Subjective Notes: Conditional Voluntary Healthcare Proxy: No Guardianship: No Medical Problems Affecting Mental Status: Yes (constipation x 11 days) Interim History: Feels better on lithium but particularly since restarting olanzapine, discussed with him ? of lybalvi- but he says he feels so much better he doesn't want to change- otherwise discussed how to manage his constipation has done well on bisacodyl in past didn't remember lactulose x1 Medication Compliance: Yes Side effects from medications: Yes (constipation) Attending Groups: Yes Review of Systems Acute medical concerns: No Medical Review of Systems: unchanged Mental Status Exam Mental Status Exam Patient Appearance: Unkempt Patient Orientation: Person, Place, Time and Situation Level of Consciousness: Awake and Appropriate Patient Behavior: Appropriate and Cooperative Affect Description: Calm, Appropriate and Anxious Patient Cognition Impaired: No Ability to Follow Directions: Good Speech Pattern: Clear Hallucinations: None Delusions: Not Present Thought Process: Intact Thought Content: positive for Intact and positive for Goal Oriented Judgement: Fair Diagnostics Vital Signs (24Hr): Vital Signs - 24 hr 07/29/22 16:08 07/30/22 08:13 Temperature 98.4 F 97.1 F Pulse Rate 56 61 Respiratory Rate 14 Blood Pressure 125/72 120/71 Pulse Oximetry 97 97 Oxygen Delivery Method Room Air Room Air BMI result Body Mass Index 32.8 Labs 07/27/22 07:52 07/27/22 07:52 Labs: Laboratory Results - last 48 hr 07/29/22 08:40 Vitamin B12 396 25-OH Vitamin D Total 21.6 Folate 8.4 Imaging Radiology Impressions: ITS Impressions KUB X-Ray 07/29/22 15:25 IMPRESSION: Moderate stool in the colon. Medications Medications Current Medications Acetaminophen (Acetaminophen 325 Mg Tablet) 650 mg PO Q6H PRN PRN Reason: Headache/Pain Mild Scale (1-3) Al Hydroxide/Mg Hydroxide (Magnesium Hydrox/Alum Hydrox 30 Ml Oral.Susp) 30 ml PO Q6H PRN PRN Reason: Heartburn/Nausea Clonazepam (Clonazepam 1 Mg Tablet) 1 mg PO BID [facility] Last Admin: 07/30/22 08:10 Dose: 1 mg Clonidine HCl (Clonidine Hcl 0.1 Mg Tablet) 0.1 mg PO BID [facility]; Protocol Last Admin: 07/30/22 08:10 Dose: 0.1 mg Fluoxetine HCl (Fluoxetine Hcl 20 Mg Capsule) 80 mg PO DAILY [facility] Last Admin: 07/30/22 08:10 Dose: 80 mg Gabapentin (Gabapentin 300 Mg Capsule) 300 mg PO BEDTIME [facility] Last Admin: 07/29/22 20:57 Dose: 300 mg Hydroxyzine HCl (Hydroxyzine Hcl 25 Mg Tablet) 25 mg PO Q6H PRN PRN Reason: Anxiety Lamotrigine (Lamotrigine 100 Mg Tablet) 200 mg PO BID [facility] Last Admin: 07/30/22 08:10 Dose: 200 mg [place] Carbonate ([place] Carbonate Er 450 Mg Tablet.Er) 450 mg PO BEDTIME [facility] Last Admin: 07/29/22 20:57 Dose: 450 mg Magnesium Hydroxide (Milk Of Magnesia 30 Ml Oral.Susp) 30 ml PO DAILY PRN PRN Reason: Constipation Multivitamins/Vitamin C (Multivitamin Tablet) 1 tab PO DAILY [facility] Last Admin: 07/30/22 08:11 Dose: 1 tab Nicotine Polacrilex (Nicotine Polacrilex 2 Mg Gum) 4 mg BUCCAL Q2H PRN PRN Reason: Nicotine Cravings Nicotine Polacrilex (Nicotine Polacrilex 2 Mg Gum) 2 mg BUCCAL Q2H PRN PRN Reason: Nicotine Cravings Olanzapine (Olanzapine 5 Mg Tablet) 5 mg PO TID PRN PRN Reason: agitation Olanzapine (Olanzapine 5 Mg Tablet) 5 mg PO BEDTIME [facility] Last Admin: 07/29/22 20:57 Dose: 5 mg Propranolol HCl (Propranolol Hcl 10 Mg Tablet) 10 mg PO BID [facility]; Protocol Last Admin: 07/30/22 08:10 Dose: 10 mg Trazodone HCl (Trazodone Hcl 50 Mg Tablet) 50 mg PO BEDTIME MRX1 PRN PRN Reason: Insomnia Last Admin: 07/28/22 20:14 Dose: 50 mg Allergies Allergies Allergy/AdvReac Type Severity Reaction Status Date / Time mirtazapine [MIRTAZAPINE] Allergy Intermediate UNKNOWN Verified 12/21/21 12:10 sulfamethoxazole Allergy Unknown RASH Verified 12/21/21 12:10 [From BACTRIM] trimethoprim [From BACTRIM] Allergy Unknown RASH Verified 12/21/21 12:10 Assessment & Plan Assessment & Plan (1) Bipolar 1 disorder, depressed, severe: Status: Acute Code(s): F31.4 - Bipolar disorder, current episode depressed, severe, without psychotic features Assessment and Plan: better back on olanzapine and now on lithium (2) Obsessive compulsive disorder: Qualifiers: Obsessive-compulsive disorder type: unspecified Qualified Code(s): F42.9 - Obsessive-compulsive disorder, unspecified Status: Acute Code(s): F42.9 - Obsessive-compulsive disorder, unspecified (3) Alcohol use disorder, severe, in early remission: Status: Acute Code(s): F10.21 - Alcohol dependence, in remission Plan 07/29/22: SRIDHAR- No BM in 10 days. Olanzapine 5 mg HS, continue PRN Continue Goodrich Patient educated on: medication risk/benefits Informed Consent: understands Reason for contiued inpatient stay Substantial Risk for: rapid decompensation Time Spent With Patient Time: Total time managing care of this patient today ____ minutes.
[2022-07-30] MEDS: Lactulose 20 GM/30 ML SOLUTION 10 GM PO (15:08)
[2022-07-30 19:19] VITALS: BP 115/71; PULSE 84; RESP 14; TEMP 36.7
[2022-07-30] MEDS: Lithium Carbonate ER 450 MG TABLET.ER PO (19:25)
[2022-07-30] MEDS: bisacodyL 5 MG TABLET.DR PO (19:25)
[2022-07-30] MEDS: Gabapentin 300 MG CAPSULE PO (19:25)
[2022-07-30] MEDS: OLANZapine 5 MG TABLET PO (19:26)
[2022-07-31] MEDS: bisacodyL 5 MG TABLET.DR PO ×2 (08:40→20:51)
[2022-07-31] MEDS: Multivitamin TABLET 1 TAB PO (08:40)
[2022-07-31] MEDS: Propranolol HCL 10 MG TABLET PO ×2 (08:40→20:51)
[2022-07-31] MEDS: clonazePAM 1 MG TABLET PO ×2 (08:40→20:51)
[2022-07-31] MEDS: lamoTRIgine 100 MG TABLET 200 MG PO ×2 (08:40→20:51)
[2022-07-31] MEDS: FLUoxetine HCl 20 MG CAPSULE 80 MG PO (08:40)
[2022-07-31] MEDS: cloNIDine HCL 0.1 MG TABLET PO ×2 (08:40→20:51)
[2022-07-31 09:01] VITALS: BP 130/73; PULSE 68; RESP 16; TEMP 36.4; O2SAT 98
--- NOTE | 2022-07-31 10:12 | P.PNPSI_ITS ---
Subjective Subjective Date of Service: 07/31/22 Reason For Visit: SI Subjective Notes: Conditional Voluntary Healthcare Proxy: No Guardianship: No Medical Problems Affecting Mental Status: No Interim History: Pt doing better, like lithium ; had good response to lactulose- Some anxiety about gaining weight on olanzapine again but feels so much better doesn't want to go off it- Medication Compliance: Yes Side effects from medications: Yes (constipation managed with lactulose and added bisacodyl) Attending Groups: Yes Review of Systems Acute medical concerns: No Medical Review of Systems: unchanged Mental Status Exam Mental Status Exam Patient Appearance: Unkempt Patient Orientation: Person, Place, Time and Situation Level of Consciousness: Awake and Appropriate Patient Behavior: Appropriate and Cooperative Affect Description: Calm, Appropriate and Anxious Patient Cognition Impaired: No Ability to Follow Directions: Good Speech Pattern: Clear Hallucinations: None Delusions: Not Present Thought Process: Intact Thought Content: positive for Intact and positive for Goal Oriented Judgement: Fair Diagnostics Vital Signs (24Hr): Vital Signs - 24 hr 07/30/22 19:19 07/31/22 09:01 Temperature 98.1 F 97.6 F Pulse Rate 84 68 Respiratory Rate 14 16 Blood Pressure 115/71 130/73 Pulse Oximetry 98 Oxygen Delivery Method Room Air BMI result Body Mass Index 32.8 Labs 07/27/22 07:52 07/27/22 07:52 Imaging Radiology Impressions: ITS Impressions KUB X-Ray 07/29/22 15:25 IMPRESSION: Moderate stool in the colon. Medications Medications Current Medications Acetaminophen (Acetaminophen 325 Mg Tablet) 650 mg PO Q6H PRN PRN Reason: Headache/Pain Mild Scale (1-3) Al Hydroxide/Mg Hydroxide (Magnesium Hydrox/Alum Hydrox 30 Ml Oral.Susp) 30 ml PO Q6H PRN PRN Reason: Heartburn/Nausea Bisacodyl (Bisacodyl 5 Mg Tablet.) 5 mg PO BID [facility], [facility] Last Admin: 07/31/22 08:40 Dose: 5 mg Clonazepam (Clonazepam 1 Mg Tablet) 1 mg PO BID [facility] Last Admin: 07/31/22 08:40 Dose: 1 mg Clonidine HCl (Clonidine Hcl 0.1 Mg Tablet) 0.1 mg PO BID [facility], [facility]; Protocol Last Admin: 07/31/22 08:40 Dose: 0.1 mg Fluoxetine HCl (Fluoxetine Hcl 20 Mg Capsule) 80 mg PO DAILY [facility] Last Admin: 07/31/22 08:40 Dose: 80 mg Gabapentin (Gabapentin 300 Mg Capsule) 300 mg PO BEDTIME [facility] Last Admin: 07/30/22 19:25 Dose: 300 mg Hydroxyzine HCl (Hydroxyzine Hcl 25 Mg Tablet) 25 mg PO Q6H PRN PRN Reason: Anxiety Lactulose (Lactulose 20 Gm/30 Ml Solution) 10 gm PO DAILY PRN PRN Reason: severe constipation Last Admin: 07/30/22 15:08 Dose: 10 gm Lamotrigine (Lamotrigine 100 Mg Tablet) 200 mg PO BID [facility], [facility] Last Admin: 07/31/22 08:40 Dose: 200 mg [place] Carbonate ([place] Carbonate Er 450 Mg Tablet.Er) 450 mg PO BEDTIME [facility] Last Admin: 07/30/22 19:25 Dose: 450 mg Magnesium Hydroxide (Milk Of Magnesia 30 Ml Oral.Susp) 30 ml PO DAILY PRN PRN Reason: Constipation Multivitamins/Vitamin C (Multivitamin Tablet) 1 tab PO DAILY [facility] Last Admin: 07/31/22 08:40 Dose: 1 tab Nicotine Polacrilex (Nicotine Polacrilex 2 Mg Gum) 4 mg BUCCAL Q2H PRN PRN Reason: Nicotine Cravings Nicotine Polacrilex (Nicotine Polacrilex 2 Mg Gum) 2 mg BUCCAL Q2H PRN PRN Reason: Nicotine Cravings Olanzapine (Olanzapine 5 Mg Tablet) 5 mg PO TID PRN PRN Reason: agitation Olanzapine (Olanzapine 5 Mg Tablet) 5 mg PO BEDTIME [facility] Last Admin: 07/30/22 19:26 Dose: 5 mg Propranolol HCl (Propranolol Hcl 10 Mg Tablet) 10 mg PO BID [facility], [facility]; Protocol Last Admin: 07/31/22 08:40 Dose: 10 mg Trazodone HCl (Trazodone Hcl 50 Mg Tablet) 50 mg PO BEDTIME MRX1 PRN PRN Reason: Insomnia Last Admin: 07/28/22 20:14 Dose: 50 mg Allergies Allergies Allergy/AdvReac Type Severity Reaction Status Date / Time mirtazapine [MIRTAZAPINE] Allergy Intermediate UNKNOWN Verified 12/21/21 12:10 sulfamethoxazole Allergy Unknown RASH Verified 12/21/21 12:10 [From BACTRIM] trimethoprim [From BACTRIM] Allergy Unknown RASH Verified 12/21/21 12:10 Assessment & Plan Assessment & Plan (1) Bipolar 1 disorder, depressed, severe: Status: Acute Code(s): F31.4 - Bipolar disorder, current episode depressed, severe, without psychotic features Assessment and Plan: better back on olanzapine and now on lithium (2) Obsessive compulsive disorder: Qualifiers: Obsessive-compulsive disorder type: unspecified Qualified Code(s): F42 .9 - Obsessive-compulsive disorder, unspecified Status: Acute Code(s): F42.9 - Obsessive-compulsive disorder, unspecified (3) Alcohol use disorder, severe, in early remission: Status: Acute Code(s): F10.21 - Alcohol dependence, in remission Assessment and Plan: no cravings Plan 07/29/22: KUB- No BM in 10 days. Olanzapine 5 mg HS, continue PRN Continue [place] Patient educated on: medication risk/benefits Informed Consent: understands Reason for contiued inpatient stay Substantial Risk for: rapid decompensation Time Spent With Patient Time: Total time managing care of this patient today ____ minutes.
[2022-07-31 20:50] VITALS: BP 121/79; PULSE 68; RESP 14; TEMP 36.6; O2SAT 95
[2022-07-31] MEDS: Gabapentin 300 MG CAPSULE PO (20:51)
[2022-07-31] MEDS: OLANZapine 5 MG TABLET PO (20:51)
[2022-07-31] MEDS: Lithium Carbonate ER 450 MG TABLET.ER PO (20:51)
[2022-08-01 06:00] VITALS: BP 126/72; PULSE 78; RESP 16; TEMP 36.8; O2SAT 97
[2022-08-01] MEDS: FLUoxetine HCl 20 MG CAPSULE 80 MG PO (08:15)
[2022-08-01] MEDS: Multivitamin TABLET 1 TAB PO (08:15)
[2022-08-01] MEDS: cloNIDine HCL 0.1 MG TABLET PO ×2 (08:15→20:12)
[2022-08-01] MEDS: lamoTRIgine 100 MG TABLET 200 MG PO ×2 (08:15→20:11)
[2022-08-01] MEDS: bisacodyL 5 MG TABLET.DR PO ×2 (08:15→20:12)
[2022-08-01] MEDS: Propranolol HCL 10 MG TABLET PO ×2 (08:15→20:10)
[2022-08-01] MEDS: clonazePAM 1 MG TABLET PO ×2 (08:15→20:10)
[2022-08-01] MEDS: Lactulose 20 GM/30 ML SOLUTION 10 GM PO (09:49)
[2022-08-01] MEDS: Magnesium Hydrox/Alum Hydrox 30 ML ORAL.SUSP PO (16:33)
--- NOTE | 2022-08-01 17:18 | HO.PSYCHPN ---
Subjective Subjective Date of Service: 08/01/22 Reason For Visit: SI Subjective Notes: Conditional Voluntary Healthcare Proxy: No Guardianship: No Medical Problems Affecting Mental Status: No Interim History: Reports feeling improved on Olanzapine. I have felt like myself for the past few days. Discussed discharge planning. Asks for referral to [facility] PHP program on [address] He has attended before and found the program to be helpful. Medication Compliance: Yes Side effects from medications: No Attending Groups: Yes Review of Systems Acute medical concerns: No Medical Review of Systems: unchanged Mental Status Exam Mental Status Exam Patient Appearance: Appropriate Patient Orientation: Person, Place, Time and Situation Level of Consciousness: Alert Patient Behavior: Appropriate, Talkative, Cooperative and Good Eye Contact Mood Description: Appropriate Affect Description: Appropriate Patient Cognition Impaired: No Ability to Follow Directions: Good Speech Pattern: Spontaneous Speech Memory Description: Intact Hallucinations: None Delusions: Not Present Thought Process: Intact and Goal Oriented Thought Content: positive for Intact and positive for Goal Oriented Judgement: Good Diagnostics Vital Signs (24Hr): Vital Signs - 24 hr 07/31/22 20:50 08/01/22 06:00 Temperature 97.9 F 98.2 F Pulse Rate 68 78 Respiratory Rate 14 16 Blood Pressure 121/79 126/72 Pulse Oximetry 95 97 Oxygen Delivery Method Room Air Room Air BMI result Body Mass Index 32.8 Labs 07/27/22 07:52 07/27/22 07:52 Imaging Radiology Impressions: ITS Impressions KUB X-Ray 07/29/22 15:25 IMPRESSION: Moderate stool in the colon. Medications Medications Current Medications Acetaminophen (Acetaminophen 325 Mg Tablet) 650 mg PO Q6H PRN PRN Reason: Headache/Pain Mild Scale (1-3) Al Hydroxide/Mg Hydroxide (Magnesium Hydrox/Alum Hydrox 30 Ml Oral.Susp) 30 ml PO Q6H PRN PRN Reason: Heartburn/Nausea Last Admin: 08/01/22 16:33 Dose: 30 ml Bisacodyl (Bisacodyl 5 Mg Tablet.Dr) 5 mg PO BID COUNTS INCLUDE 234 BEDS AT THE [facility] Last Admin: 08/01/22 08:15 Dose: 5 mg Clonazepam (Clonazepam 1 Mg Tablet) 1 mg PO BID COUNTS INCLUDE 234 BEDS AT THE [facility] Last Admin: 08/01/22 08:15 Dose: 1 mg Clonidine HCl (Clonidine Hcl 0.1 Mg Tablet) 0.1 mg PO BID COUNTS INCLUDE 234 BEDS AT THE [facility]; Protocol Last Admin: 08/01/22 08:15 Dose: 0.1 mg Fluoxetine HCl (Fluoxetine Hcl 20 Mg Capsule) 80 mg PO DAILY COUNTS INCLUDE 234 BEDS AT THE [facility] Last Admin: 08/01/22 08:15 Dose: 80 mg Gabapentin (Gabapentin 300 Mg Capsule) 300 mg PO BEDTIME COUNTS INCLUDE 234 BEDS AT THE [facility] Last Admin: 07/31/22 20:51 Dose: 300 mg Hydroxyzine HCl (Hydroxyzine Hcl 25 Mg Tablet) 25 mg PO Q6H PRN PRN Reason: Anxiety Lactulose (Lactulose 20 Gm/30 Ml Solution) 10 gm PO DAILY PRN PRN Reason: severe constipation Last Admin: 08/01/22 09:49 Dose: 10 gm Lamotrigine (Lamotrigine 100 Mg Tablet) 200 mg PO BID COUNTS INCLUDE 234 BEDS AT THE [facility] Last Admin: 08/01/22 08:15 Dose: 200 mg [place] Carbonate ([place] Carbonate Er 450 Mg Tablet.Er) 450 mg PO BEDTIME COUNTS INCLUDE 234 BEDS AT THE [facility] Last Admin: 07/31/22 20:51 Dose: 450 mg Magnesium Hydroxide (Milk Of Magnesia 30 Ml Oral.Susp) 30 ml PO DAILY PRN PRN Reason: Constipation Multivitamins/Vitamin C (Multivitamin Tablet) 1 tab PO DAILY COUNTS INCLUDE 234 BEDS AT THE [facility] Last Admin: 08/01/22 08:15 Dose: 1 tab Nicotine Polacrilex (Nicotine Polacrilex 2 Mg Gum) 4 mg BUCCAL Q2H PRN PRN Reason: Nicotine Cravings Nicotine Polacrilex (Nicotine Polacrilex 2 Mg Gum) 2 mg BUCCAL Q2H PRN PRN Reason: Nicotine Cravings Olanzapine (Olanzapine 5 Mg Tablet) 5 mg PO TID PRN PRN Reason: agitation Olanzapine (Olanzapine 5 Mg Tablet) 5 mg PO BEDTIME COUNTS INCLUDE 234 BEDS AT THE [facility] Last Admin: 07/31/22 20:51 Dose: 5 mg Propranolol HCl (Propranolol Hcl 10 Mg Tablet) 10 mg PO BID COUNTS INCLUDE 234 BEDS AT THE [facility]; Protocol Last Admin: 08/01/22 08:15 Dose: 10 mg Trazodone HCl (Trazodone Hcl 50 Mg Tablet) 50 mg PO BEDTIME MRX1 PRN PRN Reason: Insomnia Last Admin: 07/28/22 20:14 Dose: 50 mg Allergies Allergies Allergy/AdvReac Type Severity Reaction Status Date / Time mirtazapine [MIRTAZAPINE] Allergy Intermediate UNKNOWN Verified 12/21/21 12:10 sulfamethoxazole Allergy Unknown RASH Verified 12/21/21 12:10 [From BACTRIM] trimethoprim [From BACTRIM] Allergy Unknown RASH Verified 12/21/21 12:10 Assessment & Plan Assessment & Plan (1) Bipolar 1 disorder, depressed, severe: Status: Acute Code(s): F31.4 - Bipolar disorder, current episode depressed, severe, without psychotic features Assessment and Plan: better back on olanzapine and now on lithium (2) Obsessive compulsive disorder: Qualifiers: Obsessive-compulsive disorder type: unspecified Qualified Code(s): F42.9 - Obsessive-compulsive disorder, unspecified Status: Acute Code(s): F42.9 - Obsessive-compulsive disorder, unspecified (3) Alcohol use disorder, severe, in early remission: Status: Acute Code(s): F10.21 - Alcohol dependence, in remission Assessment and Plan: no cravings Plan 07/29/22: KUB- No BM in 10 days. Olanzapine 5 mg HS, continue PRN Continue [place] 08/01/22 Labs 08/02. Referral to [facility] PHP per pt request Continue current regime Patient educated on: medication risk/benefits and therapeutic strategies Informed Consent: understands Reason for contiued inpatient stay Substantial Risk for: rapid decompensation Time Spent With Patient Time: Total time managing care of this patient today 20 minutes.
[2022-08-01 18:00] VITALS: BP 120/62; PULSE 73; TEMP 35.9; O2SAT 95
[2022-08-01] MEDS: Gabapentin 300 MG CAPSULE PO (20:11)
[2022-08-01] MEDS: OLANZapine 5 MG TABLET PO (20:12)
[2022-08-01] MEDS: Lithium Carbonate ER 450 MG TABLET.ER PO (20:12)
[2022-08-02 08:54] LABS: MANUAL DIFF FLAG NO
[2022-08-02 09:08] LABS: Basophils Percent Auto 0.4 % (0-2); Eosinophils Absolute Auto 0.3 X10*3/uL (0.0-0.4); Eosinophils Percent Auto 3.5 % (0-4); Hematocrit 45.8 % (42.0-52.0); Hemoglobin 15.1 g/dl (14.0-18.0); Imm Gran Abs Auto 0.02 X10*3/uL (0.00-0.03); Imm Gran Pct Auto 0.3 % (0.0-0.4); Lymphocytes Absolute Auto 1.2 X10*3/uL (1.2-4.9); Lymphocytes Percent Auto 16.3 % (20-40); Mean Corpuscular Hemoglobin 30.1 pg (27.0-33.0); Mean Corpuscular Volume 91.2 fL (80.0-98.0); Mean Platelet Volume 10.3 fL (9.4-12.4); Monocytes Absolute Auto 0.6 X10*3/uL (0.1-1.2); Monocytes Percent Auto 7.9 % (2-11); Neutrophils Percent Auto 71.6 % (45-73); Platelet Count 200 X10*3/uL (160-400); Red Blood Count 5.02 X10*6/uL (4.60-5.80); Red Cell Distribution Width 12.2 % (11.0-16.0); White Blood Count 7.1 X10*3/uL (4.8-10.8)
[2022-08-02 09:15] VITALS: BP 123/68; PULSE 75; RESP 14; TEMP 36.5
[2022-08-02] MEDS: Multivitamin TABLET 1 TAB PO (09:16)
[2022-08-02] MEDS: lamoTRIgine 100 MG TABLET 200 MG PO ×2 (09:16→22:26)
[2022-08-02] MEDS: Propranolol HCL 10 MG TABLET PO ×2 (09:16→21:50)
[2022-08-02] MEDS: cloNIDine HCL 0.1 MG TABLET PO ×2 (09:16→21:54)
[2022-08-02] MEDS: bisacodyL 5 MG TABLET.DR PO ×2 (09:16→21:49)
[2022-08-02] MEDS: FLUoxetine HCl 20 MG CAPSULE 80 MG PO (09:16)
[2022-08-02] MEDS: Lactulose 20 GM/30 ML SOLUTION 10 GM PO (09:17)
[2022-08-02 09:35] LABS: Lithium 0.33 mmol/L (0.60-1.20)
[2022-08-02 09:37] LABS: Alanine Aminotransferase 54 U/L (0-40); Albumin Level 4.5 g/dL (3.5-5.0); Alkaline Phosphatase 69 U/L (39-117); Anion Gap 14 (12-20); Aspartate Amino Transferase 34 U/L (5-37); Bilirubin Total 0.7 mg/dL (0.0-1.0); Blood Urea Nitrogen 11 mg/dL (9-16); Calcium 9.6 mg/dL (8.4-10.2); Carbon Dioxide 28 mmol/L (22-29); Chloride 106 mmol/L (96-108); Creatinine Clr Calc Pharmacy 130.9; Estimated Glomerular Filt Rate > 60; Glucose Random 91 mg/dL (60-115); Potassium 4.6 mmol/L (3.3-5.1); Sodium 143 mmol/L (135-145); Total Protein 6.6 g/dL (6.5-8.0)
[2022-08-02 16:40] VITALS: BP 119/61; PULSE 66; RESP 18; TEMP 36.7; O2SAT 97
--- NOTE | 2022-08-02 16:41 | P.PNPSI_ITS ---
Subjective Subjective Date of Service: 08/02/22 Reason For Visit: SI Subjective Notes: Conditional Voluntary Healthcare Proxy: No Guardianship: No Medical Problems Affecting Mental Status: No Interim History: Constipation resolved. Pt feeling improved, prepared for discharge 08/03. Will attend [facility] PHP program per his request-he has attended in the past and has a positive alliance with the program Discussed titration of Olanzapine to 10 mg HS Medication Compliance: Yes Side effects from medications: No Attending Groups: Yes Review of Systems Acute medical concerns: No Medical Review of Systems: unchanged Mental Status Exam Mental Status Exam Patient Appearance: Appropriate Patient Orientation: Person, Place, Time and Situation Level of Consciousness: Alert Patient Behavior: Appropriate, Talkative, Cooperative and Good Eye Contact Mood Description: Appropriate Affect Description: Appropriate Patient Cognition Impaired: No Ability to Follow Directions: Good Speech Pattern: Spontaneous Speech Memory Description: Intact Hallucinations: None Delusions: Not Present Thought Process: Intact and Goal Oriented Thought Content: positive for Intact and positive for Goal Oriented Judgement: Good Diagnostics Vital Signs (24Hr): Vital Signs - 24 hr 08/01/22 18:00 08/02/22 09:15 Temperature 96.7 F L 97.7 F Pulse Rate 73 75 Respiratory Rate 14 Blood Pressure 120/62 123/68 Pulse Oximetry 95 Oxygen Delivery Method Room Air BMI result Body Mass Index 32.8 Labs 08/02/22 08:20 08/02/22 08:20 Labs: Laboratory Results - last 48 hr 08/02/22 08/02/22 08/02/22 08:20 08:20 08:20 WBC 7.1 RBC 5.02 Hgb 15.1 Hct 45.8 MCV 91.2 MCH 30.1 MCHC 33.0 RDW 12.2 Plt Count 200 MPV 10.3 Immature Gran % (Auto) 0.3 Neut % (Auto) 71.6 Lymph % (Auto) 16.3 L [place] % (Auto) 7.9 Eos % (Auto) 3.5 Baso % (Auto) 0.4 Lymph # (Auto) 1.2 [place] # (Auto) 0.6 Eos # (Auto) 0.3 Baso # (Auto) 0.0 Abs Immat Gran (auto) 0.02 Absolute Neuts (auto) 5.0 Absolute Nucleated RBC 0.000 Nucleated RBC % (auto) 0.0 Sodium 143 Potassium 4.6 Chloride 106 Carbon Dioxide 28 Anion Gap 14 BUN 11 Creatinine 0.95 Estim Creat Clear Calc 130.9 Estimated GFR > 60 Random Glucose 91 Calcium 9.6 Total Bilirubin 0.7 AST 34 ALT 54 H Alkaline Phosphatase 69 Total Protein 6.6 Albumin 4.5 [place] 0.33 L Imaging Radiology Impressions: ITS Impressions KUB X-Ray 07/29/22 15:25 IMPRESSION: Moderate stool in the colon. Medications Medications Current Medications Acetaminophen (Acetaminophen 325 Mg Tablet) 650 mg PO Q6H PRN PRN Reason: Headache/Pain Mild Scale (1-3) Al Hydroxide/Mg Hydroxide (Magnesium Hydrox/Alum Hydrox 30 Ml Oral.Susp) 30 ml PO Q6H PRN PRN Reason: Heartburn/Nausea Last Admin: 08/01/22 16:33 Dose: 30 ml Bisacodyl (Bisacodyl 5 Mg Tablet.Dr) 5 mg PO BID [facility] Last Admin: 08/02/22 09:16 Dose: 5 mg Clonidine HCl (Clonidine Hcl 0.1 Mg Tablet) 0.1 mg PO BID [facility]; Protocol Last Admin: 08/02/22 09:16 Dose: 0.1 mg Fluoxetine HCl (Fluoxetine Hcl 20 Mg Capsule) 80 mg PO DAILY [facility] Last Admin: 08/02/22 09:16 Dose: 80 mg Gabapentin (Gabapentin 300 Mg Capsule) 300 mg PO BEDTIME [facility] Last Admin: 08/01/22 20:11 Dose: 300 mg Hydroxyzine HCl (Hydroxyzine Hcl 25 Mg Tablet) 25 mg PO Q6H PRN PRN Reason: Anxiety Lactulose (Lactulose 20 Gm/30 Ml Solution) 10 gm PO DAILY PRN PRN Reason: severe constipation Last Admin: 08/02/22 09:17 Dose: 10 gm Lamotrigine (Lamotrigine 100 Mg Tablet) 200 mg PO BID [facility] Last Admin: 08/02/22 09:16 Dose: 200 mg [place] Carbonate ([place] Carbonate Er 450 Mg Tablet.Er) 450 mg PO BEDTIME [facility] Last Admin: 08/01/22 20:12 Dose: 450 mg Magnesium Hydroxide (Milk Of Magnesia 30 Ml Oral.Susp) 30 ml PO DAILY PRN PRN Reason: Constipation Multivitamins/Vitamin C (Multivitamin Tablet) 1 tab PO DAILY [facility] Last Admin: 08/02/22 09:16 Dose: 1 tab Nicotine Polacrilex (Nicotine Polacrilex 2 Mg Gum) 4 mg [place]CC[place] Q2H PRN PRN Reason: Nicotine Cravings Nicotine Polacrilex (Nicotine Polacrilex 2 Mg Gum) 2 mg BUCCAL Q2H PRN PRN Reason: Nicotine Cravings Olanzapine (Olanzapine 5 Mg Tablet) 5 mg PO TID PRN PRN Reason: agitation Olanzapine (Olanzapine 5 Mg Tablet) 5 mg PO BEDTIME [facility] Last Admin: 08/01/22 20:12 Dose: 5 mg Propranolol HCl (Propranolol Hcl 10 Mg Tablet) 10 mg PO BID [facility]; Protocol Last Admin: 08/02/22 09:16 Dose: 10 mg Trazodone HCl (Trazodone Hcl 50 Mg Tablet) 50 mg PO BEDTIME MRX1 PRN PRN Reason: Insomnia Last Admin: 07/28/22 20:14 Dose: 50 mg Allergies Allergies Allergy/AdvReac Type Severity Reaction Status Date / Time mirtazapine [MIRTAZAPINE] Allergy Intermediate UNKNOWN Verified 12/21/21 12:10 sulfamethoxazole Allergy Unknown RASH Verified 12/21/21 12:10 [From BACTRIM] trimethoprim [From BACTRIM] Allergy Unknown RASH Verified 12/21/21 12:10 Assessment & Plan Assessment & Plan (1) Bipolar 1 disorder, depressed, severe: Status: Acute Code(s): F31.4 - Bipolar disorder, current episode depressed, severe, without psychotic features Assessment and Plan: better back on olanzapine and now on lithium (2) Obsessive compulsive disorder: Qualifiers: Obsessive-compulsive disorder type: unspecified Qualified Code(s): F42.9 - Obsessive-compulsive disorder, unspecified Status: Acute Code(s): F42.9 - Obsessive-compulsive disorder, unspecified (3) Alcohol use disorder, severe, in early remission: Status: Acute Code(s): F10.21 - Alcohol dependence, in remission Assessment and Plan: no cravings Plan 07/29/22: KUB- No BM in 10 days. Olanzapine 5 mg HS, continue PRN Continue [place] 08/01/22 Labs 08/02. Referral to [facility] PHP per pt request Continue current regime 08/02/22- Discharge 08/03/22 Increase Olanzapine to 10 mg HS Patient educated on: medication risk/benefits, therapeutic strategies and medical condition Informed Consent: understands and further education needed Reason for contiued inpatient stay Substantial Risk for: stable for discharge Time Spent With Patient Time: Total time managing care of this patient today 25 minutes.
[2022-08-02] MEDS: clonazePAM 1 MG TABLET PO (21:49)
[2022-08-02] MEDS: traZODone HCL 50 MG TABLET PO (21:50)
[2022-08-02] MEDS: Lithium Carbonate ER 450 MG TABLET.ER PO (21:50)
[2022-08-02] MEDS: Gabapentin 300 MG CAPSULE PO (21:50)
[2022-08-02] MEDS: OLANZapine 10 MG TABLET PO (22:28)
[2022-08-03 08:07] VITALS: BP 128/68; PULSE 64; RESP 16; TEMP 36.2; O2SAT 98
[2022-08-03] MEDS: cloNIDine HCL 0.1 MG TABLET PO (08:34)
[2022-08-03] MEDS: bisacodyL 5 MG TABLET.DR PO (08:34)
[2022-08-03] MEDS: lamoTRIgine 100 MG TABLET 200 MG PO (08:34)
[2022-08-03] MEDS: Multivitamin TABLET 1 TAB PO (08:34)
[2022-08-03] MEDS: Propranolol HCL 10 MG TABLET PO (08:34)
[2022-08-03] MEDS: FLUoxetine HCl 20 MG CAPSULE 80 MG PO (08:34)
[2022-08-03] MEDS: clonazePAM 1 MG TABLET PO (08:34)
--- NOTE | 2022-08-03 17:17 | PM.PSYDC ---
DS: Providers Provider Date of Service: 08/03/22 Date of admission: 07/27/22 20:35 Date of discharge: 08/03/22 Primary care physician: Quan Baker MD Admitting clinician: Zara Tejeda Attending physician on admission: Brandyn Simon Attending physician on discharge: Brandyn Simon Discharging clinician: Zara Tejeda DS: Diagnosis Discharge Diagnosis (1) Bipolar 1 disorder, depressed, severe: Status: Acute (2) Obsessive compulsive disorder: Status: Acute (3) Alcohol use disorder, severe, in early remission: Status: Acute DS: Medications Discharge Medications Home Medications: Previous Rx's Medication Instructions Recorded bisacodyl 5 mg tablet,delayed 5 mg PO BID #60 tabs 08/02/22 release clonazepam 1 mg tablet (Klonopin) 1 mg PO BID #60 tabs 08/02/22 clonidine HCl 0.1 mg tablet 0.1 mg PO BID #60 tabs 08/02/22 fluoxetine 40 mg capsule 80 mg PO DAILY #60 caps 08/02/22 gabapentin 300 mg capsule 300 mg PO BEDTIME #30 caps 08/02/22 lactulose 20 gram/30 mL oral 10 g (15 mL) PO DAILY PRN severe 08/02/22 solution constipation #1 units lamotrigine 200 mg tablet 200 mg PO BID #60 tabs 08/02/22 (Lamictal) lithium carbonate 450 mg 450 mg PO BEDTIME #30 tabs 08/02/22 tablet,extended release multivitamin (Daily-Ninoska tablet) 1 tab PO DAILY #30 tabs 08/02/22 nicotine (polacrilex) 2 mg gum 4 mg buccal Q2H PRN Nicotine 08/02/22 Cravings #100 ea olanzapine 10 mg tablet 10 mg PO BEDTIME #30 tabs 08/02/22 propranolol 10 mg tablet 1 tab PO BID #60 tabs 08/02/22 Mental Status Exam Mental Status Exam Patient Appearance: Appropriate Patient Orientation: Person, Place, Time and Situation Level of Consciousness: Alert Patient Behavior: Appropriate, Talkative, Cooperative and Good Eye Contact Mood Description: Appropriate Affect Description: Appropriate Patient Cognition Impaired: No Ability to Follow Directions: Good Speech Pattern: Spontaneous Speech Memory Description: Intact Hallucinations: None Delusions: Not Present Thought Process: Intact and Goal Oriented Thought Content: positive for Intact and positive for Goal Oriented Judgement: Good Data Data Completed and Pending Completed studies during hospitalization [Text1]: 07/28/22 07/28/22 07/29/22 08:38 08:38 08:40 WBC RBC Hgb Hct MCV MCH MCHC RDW Plt Count MPV Immature Gran % (Auto) Neut % (Auto) Lymph % (Auto) Saline % (Auto) Eos % (Auto) Baso % (Auto) Lymph # (Auto) Saline # (Auto) Eos # (Auto) Baso # (Auto) Abs Immat Gran (auto) Absolute Neuts (auto) Absolute Nucleated RBC Nucleated RBC % (auto) Sodium Potassium Chloride Carbon Dioxide Anion Gap BUN Creatinine Estim Creat Clear Calc Estimated GFR Random Glucose Estimat Average Glucose 88 Hemoglobin A1c % 4.7 Calcium Total Bilirubin 1.3 H Direct Bilirubin 0.3 AST 39 H ALT 48 H Alkaline Phosphatase 73 Total Protein 7.2 Albumin 4.8 Triglycerides 129 Cholesterol 249 LDL Cholesterol, Calc 197 HDL Cholesterol 27 Vitamin B12 396 25-OH Vitamin D Total 21.6 Folate 8.4 TSH 0.85 [place] 08/02/22 08/02/22 08/02/22 08:20 08:20 08:20 WBC 7.1 RBC 5.02 Hgb 15.1 Hct 45.8 MCV 91.2 MCH 30.1 MCHC 33.0 RDW 12.2 Plt Count 200 MPV 10.3 Immature Gran % (Auto) 0.3 Neut % (Auto) 71.6 Lymph % (Auto) 16.3 L Saline % (Auto) 7.9 Eos % (Auto) 3.5 Baso % (Auto) 0.4 Lymph # (Auto) 1.2 Saline # (Auto) 0.6 Eos # (Auto) 0.3 Baso # (Auto) 0.0 Abs Immat Gran (auto) 0.02 Absolute Neuts (auto) 5.0 Absolute Nucleated RBC 0.000 Nucleated RBC % (auto) 0.0 Sodium 143 Potassium 4.6 Chloride 106 Carbon Dioxide 28 Anion Gap 14 BUN 11 Creatinine 0.95 Estim Creat Clear Calc 130.9 Estimated GFR > 60 Random Glucose 91 Estimat Average Glucose Hemoglobin A1c % Calcium 9.6 Total Bilirubin 0.7 Direct Bilirubin AST 34 ALT 54 H Alkaline Phosphatase 69 Total Protein 6.6 Albumin 4.5 Triglycerides Cholesterol LDL Cholesterol, Calc HDL Cholesterol Vitamin B12 25-OH Vitamin D Total Folate TSH [place] 0.33 L Imaging Diagnostic Imaging Impressions KUB X-Ray 07/29/22 15:25 IMPRESSION: Moderate stool in the colon. DS: Summary Hospital Course Hospital Course: Admission to adult psychiatry for exacerbation of bipolar disorder, depressed, Obsessive Compulsive Disorder, Alcohol Use Disorder. Gabapentin was titrated, Low dose lithium was initiated to augment Lamictal, and Olanzapine was initiated. Klonopin, Clonidine, Prozac, Lamictal and Propranolol were continued. Time spent discussing smoking cessation with patient: 3 to 10 minutes Status at Discharge Functional status at discharge: independent ambulation Overall status at discharge: patient is progressing back to baseline Time Spent with Patient Time attestation: Total time managing care of this patient today ____ minutes. Time spent: Greater than 30 minutes Discharge Plan Discharge Anticipated Discharge Date/Time: 08/03/22 12:00 Patient Disposition: Home, Self-Care Discharge Diagnosis: Bipolar Disorder, Depressed OCD Alcohol Use Disorder, Severe, Early Remission Referrals: Jaylin Quest: [facility] (psychiatry) [Other] - 08/12/22 12:30 pm (Outpatient follow-up discharge appointment with psychiatric provider. Appointment is in person at [facility]) [facility] L[facility] Mcfarlane [Other] - 08/05/22 12:00 pm (follow-up discharge appointment with outpatient therapist Appointment is by tele-health) [facility] Adult [facility] [Other] - 1 Day (Referral to PHP program Patient should follow-up on referral after discharge.) Quan Baker MD [Primary Care Provider] - 08/12/22 10:00 am (in office) Discharge Medications: New nicotine (polacrilex) 2 mg Gum 4 mg buccal Q2H PRN (Reason: Nicotine Cravings) Qty: 100 0RF olanzapine 10 mg Tablet 10 mg PO BEDTIME Qty: 30 0RF lithium carbonate 450 mg Tablet Extended Release 450 mg PO BEDTIME Qty: 30 0RF gabapentin 300 mg Capsule 300 mg PO BEDTIME Qty: 30 0RF bisacodyl 5 mg Tablet,Delayed Release (Dr/Ec) 5 mg PO BID Qty: 60 0RF lactulose 20 gram/30 mL Solution 10 g PO DAILY PRN (Reason: severe constipation) Qty: 1 0RF multivitamin [Daily-Ninoska] Tablet 1 tab PO DAILY Qty: 30 0RF Continued fluoxetine 40 mg capsule 80 mg PO DAILY Qty: 60 0RF clonidine HCl 0.1 mg tablet 0.1 mg PO BID Qty: 60 0RF lamotrigine [Lamictal] 200 mg Tablet 200 mg PO BID Qty: 60 0RF clonazepam [Klonopin] 1 mg Tablet 1 mg PO BID Qty: 60 0RF propranolol 10 mg tablet 1 tab PO BID Qty: 60 0RF Discontinued gabapentin 100 mg capsule 300 mg PO BEDTIME Discharge Orders: Discharge Order (Routine); Ordered 08/03/22 Ordered By: Zara Tejeda Diet: Advance to usual diet Activity on Discharge: As tolerated Stand Alone Forms: Patient Portal Discharge page, Community Support Care Plan Goals: Mood and Behavioral Stabilization Sobriety Health Concerns: Mood and Behavioral Stabilization Sobriety Plan of Treatment: Attend follow up appointments Take medications as directed Call/Return as needed Assessment: Pt interviewed prior to discharge and found to be fully oriented and without SI/HI. Pt has insight and demonstrates good judgment in terms of wanting to pursue treatment Pt is not in imminent risk of harm to self or others and has a safety plan that includes presenting to the closest ER or calling 911 if feeling unsafe. Pt has been observed closely by nursing and unit staff throughout admission Pt has not engaged in any behaviors that suggest dangerousness to self or others and has demonstrated appropriate behaviors and impulse control. Discharge Date/Time: 08/03/22 11:37
== END 2022-08-03 11:37 | disposition home or self-care (01) | DRG 885 ==
LOC: HO.ED 18:00 → HO.PM5 20:46
PROVIDERS: Admitting Provider Psychiatry & Neurology Psychiatry; Emergency Provider Emergency Medicine; PCP Internal Medicine; Visit Provider Clinical Nurse Specialist Psychiatric/Mental Health, Adult
DX: F31.4 Bipolar disorder, current episode depressed, severe, without psychotic features (principal); R45.851 Suicidal ideations; F10.21 Alcohol dependence, in remission; F42.9 Obsessive-compulsive disorder, unspecified; I10 Essential (primary) hypertension; F17.210 Nicotine dependence, cigarettes, uncomplicated; Z71.6 Tobacco abuse counseling; Z20.822 Contact with and (suspected) exposure to COVID-19; Z88.2 Allergy status to sulfonamides; Z88.8 Allergy status to other drugs, medicaments and biological substances; Z79.899 Other long term (current) drug therapy
CPT/HCPCS: 36415; 74018; 80053; 80061; 80076; 80178; 80307; 81001; 82077; 82306; 82607; 82746; 83036; 84443; 85025; 87635; 99285; S9485

== ENCOUNTER 2022-09-29 17:52 | Emergency (ER) | payer MEDICARE, MEDICAID, SELFPAY ==
--- NOTE | 2022-09-29 17:54 | ED_ITS ---
HPI - Eye Problem General Chief complaint: Eye Problems <ISHA Sanchez - Last Filed: 09/29/22 18:01> Stated complaint: contact lenses stuck in eyes <ISHA Sanchez Last Filed: 09/29/22 18:01> Time Seen by Provider: 09/29/22 18:02 <ISHA Sanchez Last Filed: 09/29/22 18:01> Source: patient <ISHA Avila Last Filed: 09/29/22 18:32> Mode of arrival: ambulatory <ISHA Avila Last Filed: 09/29/22 18:32> Limitations: no limitations <ISHA Avila Last Filed: 09/29/22 18:32> History of Present Illness HPI Narrative: Patient is a 42 year old assigned male at with a history of bipolar disorder presenting to the emergency department today with right eye pain and concern that there is a contact lens stuck in there. Patient states that he thought the contact fell out but he could still feel it. Patient states that he was digging at his own eye to try and get it out. Patient denies any dizziness, lightheadedness, abdominal pain, nausea, vomiting, fever, chills, blurry vision, double vision, loss of vision, chest pain, difficulty breathing, shortness of breath, back pain, night sweats, pain with urination, increased urinary frequency, increased urinary urgency, blood in his urine or stool, syncope or a near syncopal episode, recent trauma or falls, bowel incontinence, bladder incontinence, bowel retention, bladder retention, or any other complaints at this time. <ISHA Avila - Last Filed: 09/29/22 18:32> chief complaint: eye pain and eye redness <ISHA Avila Last Filed: 09/29/22 18:32> Onset (ago): hour(s) <ISHA Avila Last Filed: 09/29/22 18:32> Location: right eye <ISHA Avila Last Filed: 09/29/22 18:32> Eye Symptoms: redness and pain <ISHA Avila Last Filed: 09/29/22 18:32> Place: home <ISHA Avila - Last Filed: 09/29/22 18:32> Related Data Home medications: Previous Rx's Medication Instructions Recorded bisacodyl 5 mg tablet,delayed 5 mg PO BID #60 tabs 08/02/22 release clonazepam 1 mg tablet (Klonopin) 1 mg PO BID #60 tabs 08/02/22 clonidine HCl 0.1 mg tablet 0.1 mg PO BID #60 tabs 08/02/22 fluoxetine 40 mg capsule 80 mg PO DAILY #60 caps 08/02/22 gabapentin 300 mg capsule 300 mg PO BEDTIME #30 caps 08/02/22 lactulose 20 gram/30 mL oral 10 g (15 mL) PO DAILY PRN severe 08/02/22 solution constipation #1 units lamotrigine 200 mg tablet 200 mg PO BID #60 tabs 08/02/22 (Lamictal) lithium carbonate 450 mg 450 mg PO BEDTIME #30 tabs 08/02/22 tablet,extended release multivitamin (Daily-Ninoska tablet) 1 tab PO DAILY #30 tabs 08/02/22 nicotine (polacrilex) 2 mg gum 4 mg buccal Q2H PRN Nicotine 08/02/22 Cravings #100 ea olanzapine 10 mg tablet 10 mg PO BEDTIME #30 tabs 08/02/22 propranolol 10 mg tablet 1 tab PO BID #60 tabs 08/02/22 <ISHA Sanchez - Last Filed: 09/29/22 18:01> Allergies/adverse reactions: Allergies Allergy/AdvReac Type Severity Reaction Status Date / Time mirtazapine [MIRTAZAPINE] Allergy Intermediate UNKNOWN Verified 12/21/21 12:10 sulfamethoxazole Allergy Unknown RASH Verified 12/21/21 12:10 [From BACTRIM] trimethoprim [From BACTRIM] Allergy Unknown RASH Verified 12/21/21 12:10 <ISHA Sanchez - Last Filed: 09/29/22 18:01> Review of Systems Constitutional: Constitutional: Reports no additional constitutional complaints, Denies chills, Denies fever(s) and Denies night sweats <ISHA Avila - Last Filed: 09/29/22 18:32> Eyes: Eyes: Reports no additional eye complaints, Denies blurry vision, Denies change in vision, Denies diplopia, Denies eye discharge, Reports irritation (right), Denies loss of vision and Reports eye pain (right) <ISHA Avila Last Filed: 09/29/22 18:32> ENT: Denies dizziness <ISHA Avila - Last Filed: 09/29/22 18:32> Cardiovascular: Cardiovascular: Reports no additional cardiovascular complaints, Denies chest pain, Denies lightheadedness, Denies Loss of Consciousness and Denies dyspnea <ISHA Avila - Last Filed: 09/29/22 18:32> Respiratory: Respiratory: Reports no additional respiratory complaints and Denies dyspnea <ISHA Avila - Last Filed: 09/29/22 18:32> Gastrointestinal: Gastrointestinal: Reports no additional gastrointestinal complaints, Denies abdominal pain, Denies melena, Denies hematochezia, Denies change in bowel habits and Denies change in stool character <ISHA Avila Last Filed: 09/29/22 18:32> Genitourinary: Genitourinary: Reports no additional male genitourinary complaints, Denies hematuria, Denies oliguria, Denies difficulty urinating, Denies dysuria, Denies urinary frequency, Denies urinary hesitancy, Denies urinary incontinence and Denies urinary urgency <ISHA Avila Last Filed: 09/29/22 18:32> Musculoskeletal: Musculoskeletal: Reports no additional musculoskeletal complaints, Denies numbness and Denies tingling <ISHA Avila Last Filed: 09/29/22 18:32> Neurologic: Denies dizziness, Denies loss of vision, Denies numbness and Denies tingling <ISHA Avila - Last Filed: 09/29/22 18:32> Psychiatric: Psychiatric: Reports no additional psychiatric complaints <ISHA Avila Last Filed: 09/29/22 18:32> Endocrine: Endocrine: Reports no additional endocrine complaints <ISHA Avila Last Filed: 09/29/22 18:32> Hematologic/Lymphatic: Hematologic/Lymphatic: Reports no additional hematologic/lymphatic complaints <ISHA Avila Last Filed: 09/29/22 18:32> Allergic/Immunologic: Allergic/Immunologic: Reports no additional allergic/immunologic complaints <ISHA Avila - Last Filed: 09/29/22 18:32> FOR[facility] Past Medical History Attestation statement: The following information was validated with the patient. <ISHA Avila - Last Filed: 09/29/22 18:32> Source: old records reviewed and nursing notes reviewed <ISHA Avila - Last Filed: 09/29/22 18:32> Medical History: Medical History Alcohol use disorder, mild, in controlled environment, abuse HTN (hypertension) Tachycardia Transaminitis <ISHA Sanchez - Last Filed: 09/29/22 18:01> Social History Social History: Social History Household Members: None Housing: Apartment Do you presently have visiting nurse or other home services: No Alcohol intake: former Patient Tobacco Use Status: Current everyday Tobacco user Tobacco use type: Cigarette Cigarette Packs Per Day: 0.5 Cigarettes Per Day: 5 Years Smoked: 16 e-Cigarette/Vaping Use: Currently Using Second Hand Smoke Exposure: No Advance Directives: No Advance Directives Information Provided: Yes service: No Sexual orientation: Straight/Heterosexual <ISHA Sanchez - Last Filed: 09/29/22 18:01> Physical Exam Vital Signs: Vital Signs: Last Vital Signs Temp 98.8 F 09/29/22 17:57 Pulse 73 09/29/22 17:57 Resp 16 09/29/22 17:57 BP 108/69 09/29/22 17:57 Pulse Ox 96 09/29/22 17:57 O2 Del Method Room Air 09/29/22 17:57 BMI result Body Mass Index 29.5 <ISHA Sanchez - Last Filed: 09/29/22 18:01> Vital Signs: Last Vital Signs Temp 98.8 F 09/29/22 17:57 Pulse 73 09/29/22 17:57 Resp 16 09/29/22 17:57 BP 108/69 09/29/22 17:57 Pulse Ox 96 09/29/22 17:57 O2 Del Method Room Air 09/29/22 17:57 BMI result Body Mass Index 29.5 <ISHA Avila - Last Filed: 09/29/22 18:32> Const: General: cooperative, no acute distress, alert and awake <ISHA Avila - Last Filed: 09/29/22 18:32> Nutritional Appearance: well nourished <ISHA Avila - Last Filed: 09/29/22 18:32> Orientation/consciousness: patient oriented x3 <ISHA Avila - Last Filed: 09/29/22 18:32> Limitations: no limitations <ISHA Avila - Last Filed: 09/29/22 18:32> HEENT: Head: Yes normal to inspection and Yes atraumatic <ISHA Avila - Last Filed: 09/29/22 18:32> Ears: hearing grossly normal bilaterally and external ears normal <ISHA Avila - Last Filed: 09/29/22 18:32> General nose exam: Normal external nose present, no nasal discharge noted and no epistaxis <ISHA Avila - Last Filed: 09/29/22 18:32> Face and sinus: Yes normal facial exam, No abrasion and No laceration <ISAH Avila - Last Filed: 09/29/22 18:32> Mouth: Normal oral and palatal mucosa present, no drooling and no muffled voice <ISHA Avila - Last Filed: 09/29/22 18:32> Eyes: General: appearance normal, both eyes and all related structures <ISHA Avila - Last Filed: 09/29/22 18:32> Visual Romero: normal visual romero by confrontation <ISHA Avila - Last Filed: 09/29/22 18:32> Alignment and Position: alignment normal <ISHA Avila - Last Filed: 09/29/22 18:32> Periorbital: periorbital findings normal <ISHA Avila - Last Filed: 09/29/22 18:32> Eyelids: Yes eyelids normal <ISHA Avila - Last Filed: 09/29/22 18:32> Corneas: corneas abnormal on the right abrasion <ISHA Avila - Last Filed: 09/29/22 18:32> Pupils: Equal, round and reactive pupils present <Morelia Palmer PA - Last Filed: 09/29/22 18:32> EOM: EOMs intact bilaterally <Morelia PalmerISHA - Last Filed: 09/29/22 18:32> Neck: Neck: Yes normal visual inspection, Yes full ROM and Yes no lymphadenopathy <Morelia Palmer PA - Last Filed: 09/29/22 18:32> Chest: Chest palpation & inspection: normal inspection of the chest <Morelia Del Cidclair PA - Last Filed: 09/29/22 18:32> Resp: Effort & Inspection: normal respiratory effort and able to speak in complete sentences <Morelia Palmer PA - Last Filed: 09/29/22 18:32> GI: Inspection: Yes normal to inspection <Morelia Palmer PA - Last Filed: 09/29/22 18:32> Neuro: General: patient oriented x3 and moves all extremities <Morelia Del CidISHA self - Last Filed: 09/29/22 18:32> Cranial nerves: Yes Equal, round and reactive pupils present <Morelia Palmer PA - Last Filed: 09/29/22 18:32> Cognition (Neuro): normal cognition <Morelia Palmer PA - Last Filed: 09/29/22 18:32> Motor exam (neuro): 5/5 motor strength present throughout <Morelia Palmer PA - Last Filed: 09/29/22 18:32> Sensory Exam: Normal double simultaneous stimulation for sensation <Morelia Del CidISHA self - Last Filed: 09/29/22 18:32> Coordination: [id number] test normal <Morelia Del Cidclair PA - Last Filed: 09/29/22 18:32> Extrem: General: Yes normal to inspection, Yes full ROM and Yes capillary refill normal <Morelia Del CidISHA self - Last Filed: 09/29/22 18:32> Psych: Appearance: grossly normal <Morelia Del CidISHA self - Last Filed: 09/29/22 18:32> Mental Status: mental status grossly normal <Morelia Del CidISHA self - Last Filed: 09/29/22 18:32> Affect: normal affect <Morelia ISHA Palmer - Last Filed: 09/29/22 18:32> Attitude: cooperative <ISHA Avila - Last Filed: 09/29/22 18:32> Thought process: Normal thought process present <ISHA Avila - Last Filed: 09/29/22 18:32> Thought content: Normal thought content present <ISHA Avila - Last Filed: 09/29/22 18:32> Insight: Good insight present (Psych) <ISHA Avila - Last Filed: 09/29/22 18:32> Course Course Course Narrative: This is an RME: Additional HPI, ROS, PE not included below will be deferred to primary provider. 42 year old male with PMH of panic disorder presents with right eye pain that began just prior to arrival. He is concerned that his contact is stuck in his eye and is unsure whether or not there is one or two in there. He reports he was putting in new contacts and thought he lost it, so he attempted to put a second contact in. Patient reports he was messing with his eye for a while after this. PE: right scleral injection, no contact visualized Plan: <ISHA Sanchez - Last Filed: 09/29/22 18:01> Medications Administered Discontinued Medications Generic Name Dose Route Start Last Admin Trade Name Freq PRN Reason Stop Dose Admin Erythromycin 1 cm 09/29/22 18:05 09/29/22 18:07 Erythromycin Base 0.5% Oph Oin 1 Gm Tube EYE-RIGHT 09/29/22 18:06 1 cm ONCE ONE Administration Fluorescein Sodium 1 strip 09/29/22 17:58 09/29/22 18:05 Fluorescein Sodium Strip EYE-BOTH 09/29/22 17:59 Not Given ONCE ONE Tetracaine HCl 1 drop 09/29/22 17:58 09/29/22 18:05 Tetracaine Hcl/Pf 0.5% Oph Elisabeth 4 Ml Drops EYE-BOTH 09/29/22 17:59 Not Given ONCE ONE <ISHA Sanchez - Last Filed: 09/29/22 18:01> Medications Administered Discontinued Medications Generic Name Dose Route Start Last Admin Trade Name Freq PRN Reason Stop Dose Admin Erythromycin 1 cm 09/29/22 18:05 09/29/22 18:07 Erythromycin Base 0.5% Oph Oin 1 Gm Tube EYE-RIGHT 09/29/22 18:06 1 cm ONCE ONE Administration Fluorescein Sodium 1 strip 09/29/22 17:58 09/29/22 18:05 Fluorescein Sodium Strip EYE-BOTH 09/29/22 17:59 Not Given ONCE ONE Tetracaine HCl 1 drop 09/29/22 17:58 09/29/22 18:05 Tetracaine Hcl/Pf 0.5% Oph Elisabeth 4 Ml Drops EYE-BOTH 09/29/22 17:59 Not Given ONCE ONE <ISHA Avila Last Filed: 09/29/22 18:32> Medical Decision Making Medical Decision Making MDM Narrative: Patient is a 42 year old assigned male at with a history of bipolar disorder presenting to the emergency department today with right eye pain and irritation. Patient's physical exam showed an obviously irritated right eye with a corneal abrasion, no foreign body / contact lens visualized in the eye. I explained my physical exam findings to the patient. I answered all questions asked by the patient. Patient received his first dose of erythromycin ointment which he stated helped his symptoms significantly. I stressed the importance of the patient taking his medication as prescribed. I stressed the importance of the patient following up with his primary care provider and an media specialist. I stressed the importance of the patient returning to the emergency department immediately if his symptoms were to worsen or if he were to develop any dizzines s, shortness of breath, difficulty breathing, chest pain, blurry vision, loss of vision, nausea, vomiting, abdominal pain, fever, chills, back pain, or any other complaints. Patient verbalized agreement and understanding with this treatment plan and discharge. <ISHA Avila Last Filed: 09/29/22 18:32> Differential Diagnosis Differential Diagnoses: The differential diagnosis associated with the presentation includes <ISHA Avila Last Filed: 09/29/22 18:32> corneal abrasion <ISHA Avila Last Filed: 09/29/22 18:32> Discharge Plan Discharge Clinical Impression: Abrasion, corneal <ISHA Sanchez Last Filed: 09/29/22 18:01> Patient Disposition: Home, Self-Care <ISHA Sanchez Last Filed: 09/29/22 18:01> Instructions: Corneal Abrasion (DC) <ISHA Sanchez Last Filed: 09/29/22 18:01> Additional Instructions: Use the antibiotic ointment we sent home with you. Follow up with your primary care provider and an media specialist. Return to the emergency department immediately if your symptoms worsen or if you develop any dizziness, shortness of breath, difficulty breathing, chest pain, blurry vision, loss of vision, nausea, vomiting, abdominal pain, fever, chills, back pain, or any other complaints. <ISHA Sanchez - Last Filed: 09/29/22 18:01> Prescriptions: No Action nicotine (polacrilex) 2 mg Gum 4 mg buccal Q2H PRN (Reason: Nicotine Cravings) Qty: 100 0RF olanzapine 10 mg Tablet 10 mg PO BEDTIME Qty: 30 0RF lithium carbonate 450 mg Tablet Extended Release 450 mg PO BEDTIME Qty: 30 0RF gabapentin 300 mg Capsule 300 mg PO BEDTIME Qty: 30 0RF bisacodyl 5 mg Tablet,Delayed Release (Dr/Ec) 5 mg PO BID Qty: 60 0RF lactulose 20 gram/30 mL Solution 10 g PO DAILY PRN (Reason: severe constipation) Qty: 1 0RF multivitamin [Daily-Ninoska] Tablet 1 tab PO DAILY Qty: 30 0RF fluoxetine 40 mg capsule 80 mg PO DAILY Qty: 60 0RF clonidine HCl 0.1 mg tablet 0.1 mg PO BID Qty: 60 0RF lamotrigine [Lamictal] 200 mg Tablet 200 mg PO BID Qty: 60 0RF clonazepam [Klonopin] 1 mg Tablet 1 mg PO BID Qty: 60 0RF propranolol 10 mg tablet 1 tab PO BID Qty: 60 0RF <ISHA Sanchez - Last Filed: 09/29/22 18:01> Referrals: Quan Baker MD [Primary Care Provider] - Kg Santos [Physician] - (Call to establish and follow up with an media specialist. ) <ISHA Sanchez - Last Filed: 09/29/22 18:01> Interventions: ED Discharge Assessment Last Done: 09/29/22 18:10 <ISHA Sanchez - Last Filed: 09/29/22 18:01> Discharge Date/Time: 09/29/22 18:10 <ISHA Sanchez - Last Filed: 09/29/22 18:01> Print Language: Malian <ISHA Sanchez - Last Filed: 09/29/22 18:01>
[2022-09-29 17:57] VITALS: BP 108/69; PULSE 73; RESP 16; TEMP 37.1; O2SAT 96; BMI 29.5
[2022-09-29] MEDS: Erythromycin Base 0.5% Oph Oin 1 GM TUBE 1 CM EYE-RIGHT (18:07)
== END 2022-09-29 18:10 | disposition home or self-care (01) ==
PROVIDERS: Emergency Provider Student in an Organized Health Care Education/Training Program; PCP Internal Medicine
DX: H18.821 Corneal disorder due to contact lens, right eye (principal); H57.11 Ocular pain, right eye; I10 Essential (primary) hypertension; Z79.899 Other long term (current) drug therapy; F17.210 Nicotine dependence, cigarettes, uncomplicated
CPT/HCPCS: 99283

== ENCOUNTER 2022-10-27 16:29 | Inpatient (IN) | payer MEDICARE, MEDICAID, SELFPAY ==
[2022-10-27 16:35] VITALS: BP 150/100; PULSE 100; O2SAT 100
--- NOTE | 2022-10-27 16:41 | ECG_ITS ---
Test Reason : SUBSTANCE ABUSE Blood Pressure : / mmHG Vent. Rate : 077 BPM Atrial Rate : 077 BPM P-R Int : 176 ms QRS Dur : 100 ms QT Int : 412 ms P-R-T Axes : 039 -22 036 degrees QTc Int : 466 ms Normal sinus rhythm ST & T wave abnormality, consider anterior ischemia Prolonged QT Abnormal ECG When compared with ECG of 07-JUL-2022 15:25, No significant change was found Referred By: Gian Cotter Electronically Signed By:DESI DE LEÓN MD
[2022-10-27 16:57] VITALS: BP 140/79; PULSE 86; RESP 16; TEMP 36.2; O2SAT 94; BMI 33.5
--- NOTE | 2022-10-27 17:07 | PC.NURSE ---
Initial contact with pt. pt alert, appears very intoxicated. reports 9 nips today, states suicidal ideation without specific plan. has cuts to hands I don't know how those got there, but I think I was trying to hurt myself.
[2022-10-27 17:23] LABS: MANUAL DIFF FLAG NO
[2022-10-27 17:27] LABS: Basophils Percent Auto 0.6 % (0-2); Eosinophils Absolute Auto 0.3 X10*3/uL (0.0-0.4); Eosinophils Percent Auto 4.7 % (0-4); Hemoglobin 15.8 g/dl (14.0-18.0); Imm Gran Abs Auto 0.01 X10*3/uL (0.00-0.03); Imm Gran Pct Auto 0.2 % (0.0-0.4); Lymphocytes Absolute Auto 1.7 X10*3/uL (1.2-4.9); Lymphocytes Percent Auto 26.5 % (20-40); Mean Corpuscular HGB Conc 33.6 g/dl (31.0-36.0); Mean Corpuscular Hemoglobin 29.7 pg (27.0-33.0); Mean Corpuscular Volume 88.3 fL (80.0-98.0); Monocytes Absolute Auto 0.4 X10*3/uL (0.1-1.2); Monocytes Percent Auto 5.6 % (2-11); Neutrophils Absolute Auto 3.9 x10*3/uL (2.0-8.3); Neutrophils Percent Auto 62.4 % (45-73); Platelet Count 182 X10*3/uL (160-400); Red Blood Count 5.32 X10*6/uL (4.60-5.80); Red Cell Distribution Width 14.5 % (11.0-16.0); White Blood Count 6.2 X10*3/uL (4.8-10.8)
--- NOTE | 2022-10-27 17:29 | ED_ITS ---
HPI - Alcohol General Chief Complaint: ETOH/Substance Use Stated Complaint: ETOH Time Seen by Provider: 10/27/22 16:39 Source: patient Mode of arrival: EMS Limitations: no limitations History of Present Illness HPI narrative: 42-year-old male with history of alcohol abuse psychiatric disorder presents with acute alcohol intoxication and suicidal ideation. Patient denies any drug abuse. He offers no plan. Symptoms are severe. Alcohol was ingested prior to arrival. He denies any chest pain, abdominal pain nausea, vomiting, dark black stool. He reports a history of liver disease. His symptoms are worsened by alcohol ingestion and psychiatric symptoms. He reports taking his medications appropriately. Related Data Home Medications Medication Instructions Recorded Confirmed buspirone 30 mg tablet 30 mg PO BID 10/27/22 10/27/22 clonazepam 1 mg tablet 1 mg PO BID 10/27/22 10/27/22 clonidine HCl 0.1 mg tablet 0.05 mg PO BID 10/27/22 10/27/22 clonidine HCl 0.1 mg tablet 0.1 mg PO BEDTIME 10/27/22 10/27/22 lamotrigine 200 mg tablet 200 mg PO BID 10/27/22 10/27/22 olanzapine 10 mg tablet 10 mg PO BEDTIME 10/27/22 10/27/22 propranolol 10 mg tablet 10 mg PO BID 10/27/22 10/27/22 Previous Rx's Medication Instructions Recorded fluoxetine 40 mg capsule 80 mg PO DAILY #60 caps 08/02/22 nicotine (polacrilex) 2 mg gum 4 mg buccal Q2H PRN Nicotine 08/02/22 Cravings #100 ea Allergies Allergy/AdvReac Type Severity Reaction Status Date / Time mirtazapine [MIRTAZAPINE] Allergy Intermediate UNKNOWN Verified 12/21/21 12:10 sulfamethoxazole Allergy Unknown RASH Verified 12/21/21 12:10 [From BACTRIM] trimethoprim [From BACTRIM] Allergy Unknown RASH Verified 12/21/21 12:10 Review of Systems Review of Systems: CONSTITUTIONAL: Denies weight loss, fever and chills. HEENT: Denies changes in vision and hearing. RESPIRATORY: Denies SOB and cough. CV: Denies palpitations no CP. GI: Denies abdominal pain, nausea, vomiting and diarrhea. : Denies dysuria and urinary frequency. MSK: Denies myalgia and joint pain. SKIN: Denies rash and pruritus. NEUROLOGICAL: Denies headache and syncope. PSYCHIATRIC: See HPI All other ROS are negative unless in HPI PMFSH Past Medical History Medical History Alcohol use disorder, mild, in controlled environment, abuse HTN (hypertension) Tachycardia Transaminitis Social History Social History Household Members: None Housing: Apartment Do you presently have visiting nurse or other home services: No Alcohol intake: current Alcohol intake frequency: 3 or more drinks per day Alcohol type: hard liquor Patient Tobacco Use Status: Current everyday Tobacco user Tobacco use type: Cigarette Cigarette Packs Per Day: 0.5 Cigarettes Per Day: 5 Years Smoked: 16 Smoked in Last 30 Days: No e-Cigarette/Vaping Use: Currently Using Second Hand Smoke Exposure: No Use of substances other than those prescribed or required for medical reasons: No Advance Directives: No Advance Directives Information Provided: No service: No Sexual orientation: Straight/Heterosexual Physical Exam ED Vital Signs: Vital Signs - 24 hr 10/27/22 16:57 Temperature 97.1 F Pulse Rate 86 Respiratory Rate 16 Blood Pressure 140/79 H Pulse Oximetry 94 Oxygen Delivery Method Room Air BMI result Body Mass Index 33.5 GEN: Well developed, no acute distress, alert, intoxicated, slurred speech, s mateo of alcohol HEENT: Normocephalic, atraumatic, normal external ears, nose appears normal, no oropharyngeal edema or exudates Eyes: Normal to appearance Neck: Supple, no lymphadenopathy Respiratory: Talks in complete sentences, no respiratory distress, clear to auscultation bilaterally Cardiovascular: Regular rate and rhythm, no murmurs rubs or gallops Abdomen: Soft, nontender, nondistended, no guarding, no rebound Back: No CVA tenderness Extremities: No clubbing cyanosis or edema Neurologic: No focal neurologic deficits, cranial nerves 2-12 intact, strength is 5/5 bilaterally Skin: No rash Course Course Course Narrative: 42-year-old male with history of psychiatric disorder, alcohol abuse presents with SI in the scope of acute alcohol intoxication. Will check routine labora tory analysis. Patient will be on bed watch. Patient will be a pending crisis evaluation. Will also reassess upon sobriety. Will have medical reconciliation performed. Reevaluation(s) Reevaluation #1: Patient is pending laboratory analysis, clinical sobriety in a crisis evaluation. Patient will be placed in physician observation at this time. Time: 17:34 Reevaluation #2: Patient is clinically sober. He is still ascertained that he is suicidal. Will continue with crisis evaluation. Patient is medically cleared for psychiatric evaluation. Time: 18:41 Reevaluation #3: Patient will be a voluntary admission. This is pending bed availability. Time: 21:35 Medical Decision Making Medical Decision Making [facility] Narrative: 42-year-old male with psychiatric disorder and alcohol abuse presents with acute alcohol intoxication as well as SI. Examination revealed an intoxicated male, no acute distress offering SI without plan will have routine laboratory analysis, EKG, COVID testing and a sitter with patient. Crisis team has been ordered. Patient will also be re-evaluated upon clinical sobriety to assess whether he remains suicidal. Differential Diagnosis Differential Diagnoses: The differential diagnosis associated with the presentation includes (Substance abuse disorder, psychiatric history, SI, depression, anxiety, PTSD, mood disorder, alcohol-induced mood disorder) Alcohol abuse, SI Admission/Observation Consideration of admission/observation: Escalation of care including admission/observation considered Consult Healthcare Provider Management of the patient was discussed with: Behavioral Health Provider Lab Data [facility] Lab Attestation statement: I reviewed the patient's lab results. 10/27/22 17:18 10/27/22 17:18 Labs: Lab Results 10/27/22 10/27/22 10/27/22 Range/Units 17:18 17:18 17:18 WBC 6.2 (4.8-10.8) X10*3/uL RBC 5.32 (4.60-5.80) X10*6/uL Hgb 15.8 (14.0-18.0) g/dl Hct 47.0 (42.0-52.0) % MCV 88.3 (80.0-98.0) fL MCH 29.7 (27.0-33.0) pg MCHC 33.6 (31.0-36.0) g/dl RDW 14.5 (11.0-16.0) % Plt Count 182 (160-400) X10*3/uL MPV 9.0 L (9.4-12.4) fL Immature Gran % (Auto) 0.2 (0.0-0.4) % Neut % (Auto) 62.4 (45-73) % Lymph % (Auto) 26.5 (20-40) % [place] % (Auto) 5.6 (2-11) % Eos % (Auto) 4.7 H (0-4) % Baso % (Auto) 0.6 (0-2) % Lymph # (Auto) 1.7 (1.2-4.9) X10*3/uL [place] # (Auto) 0.4 (0.1-1.2) X10*3/uL Eos # (Auto) 0.3 (0.0-0.4) X10*3/uL Baso # (Auto) 0.0 (0.0-0.2) X10*3/uL Abs Immat Gran (auto) 0.01 (0.00-0.03) X10*3/uL Absolute Neuts (auto) 3.9 (2.0-8.3) x10*3/uL Absolute Nucleated RBC 0.000 (0.0-0.012) X10*3/uL Nucleated RBC % (auto) 0.0 (0.0-0.2) /100WBC Sodium 146 H (135-145) mmol/L Potassium 3.7 (3.3-5.1) mmol/L Chloride 110 H (96-108) mmol/L Carbon Dioxide 25 (22-29) mmol/L Anion Gap 15 (12-20) BUN 9 (9-16) mg/dL Creatinine 0.95 (0.5-1.4) mg/dL Estim Creat Clear Calc 132.2 Estimated GFR > 60 Random Glucose 125 H (60-115) mg/dL Calcium 9.4 (8.4-10.2) mg/dL Total Bilirubin 0.6 (0.0-1.0) mg/dL AST 33 (5-37) U/L ALT 38 (0-40) U/L Alkaline Phosphatase 113 (39-117) U/L Total Protein 7.2 (6.5-8.0) g/dL Albumin 4.5 (3.5-5.0) g/dL Urine Color Urine Appearance Urine pH (5.0-9.0) Ur Specific Pep (1.005-1.025) Urine Protein (Neg-Trace) mg/dL Urine Glucose (UA) (Negative) mg/dL Urine Ketones (Negative) mg/dL Urine Blood (Negative) Urine Nitrite (Negative) Ur Leukocyte Esterase (Negative) Urine Opiates Screen (Not Detect) Urine Fentanyl Screen (Not Detect) Ur Barbiturates Screen (Not Detect) Ur Phencyclidine Scrn (Not Detect) Ur Amphetamines Screen (Not Detect) U Benzodiazepines Scrn (Not Detect) Urine Cocaine Screen (Not Detect) U Marijuana (THC) Screen (Not Detect) Ethyl Alcohol 215 mg/dL COVID-19 (COLE) Negative (Negative) COVID-19 Clin Com See Note 10/27/22 10/27/22 Range/Units 17:18 17:18 WBC (4.8-10.8) X10*3/uL RBC (4.60-5.80) X10*6/uL Hgb (14.0-18.0) g/dl Hct (42.0-52.0) % MCV (80.0-98.0) fL MCH (27.0-33.0) pg MCHC (31.0-36.0) g/dl RDW (11.0-16.0) % Plt Count (160-400) X10*3/uL MPV (9.4-12.4) fL Immature Gran % (Auto) (0.0-0.4) % Neut % (Auto) (45-73) % Lymph % (Auto) (20-40) % [place] % (Auto) (2-11) % Eos % (Auto) (0-4) % Baso % (Auto) (0-2) % Lymph # (Auto) (1.2-4.9) X10*3/uL [place] # (Auto) (0.1-1.2) X10*3/uL Eos # (Auto) (0.0-0.4) X10*3/uL Baso # (Auto) (0.0-0.2) X10*3/uL Abs Immat Gran (auto) (0.00-0.03) X10*3/uL Absolute Neuts (auto) (2.0-8.3) x10*3/uL Absolute Nucleated RBC (0.0-0.012) X10*3/uL Nucleated RBC % (auto) (0.0-0.2) /100WBC Sodium (135-145) mmol/L Potassium (3.3-5.1) mmol/L Chloride (96-108) mmol/L Carbon Dioxide (22-29) mmol/L Anion Gap (12-20) BUN (9-16) mg/dL Creatinine (0.5-1.4) mg/dL Estim Creat Clear Calc Estimated GFR Random Glucose (60-115) mg/dL Calcium (8.4-10.2) mg/dL Total Bilirubin (0.0-1.0) mg/dL AST (5-37) U/L ALT (0-40) U/L Alkaline Phosphatase (39-117) U/L Total Protein (6.5-8.0) g/dL Albumin (3.5-5.0) g/dL Urine Color Yellow Urine Appearance Clear Urine pH 6.5 (5.0-9.0) Ur Specific Pep <= 1.005 (1.005-1.025) Urine Protein Negative (Neg-Trace) mg/dL Urine Glucose (UA) Negative (Negative) mg/dL Urine Ketones Negative (Negative) mg/dL Urine Blood Negative (Negative) Urine Nitrite Negative (Negative) Ur Leukocyte Esterase Negative (Negative) Urine Opiates Screen Not Detected (Not Detect) Urine Fentanyl Screen Not Detected (Not Detect) Ur Barbiturates Screen Not Detected (Not Detect) Ur Phencyclidine Scrn Not Detected (Not Detect) Ur Amphetamines Screen Not Detected (Not Detect) U Benzodiazepines Scrn Not Detected (Not Detect) Urine Cocaine Screen Not Detected (Not Detect) U Marijuana (THC) Screen Not Detected (Not Detect) Ethyl Alcohol mg/dL COVID-19 (COLE) (Negative) COVID-19 Clin Com Independent Interpretation I performed an independent interpretation of an: EKG (Normal sinus rhythm heart rate 77, normal intervals, T-wave inversions in V1 through V3, QTC [address]) Prescription Management I considered prescription management with: Other (Benzodiazepines) Chronic Conditions Patient?s care impacted by: Other (Alcohol abuse, liver disease) Medications Administered Generic Name Dose Route Start Last Admin Trade Name Freq PRN Reason Stop Dose Admin Lorazepam 2 mg 10/27/22 19:56 10/27/22 20:07 Lorazepam 1 Mg Tablet PO 2 mg Q4H PRN Administration agitation Discontinued Medications Generic Name Dose Route Start Last Admin Trade Name Danielle PRN Reason Stop Dose Admin Folic Acid 1 mg 10/27/22 17:46 10/27/22 18:09 Folic Acid 1 Mg Tablet PO 10/27/22 17:47 1 mg ONCE ONE Administration Multivitamins/Vitamin C 1 tab 10/27/22 17:46 10/27/22 18:09 Multivitamin Tablet PO 10/27/22 17:47 1 tab ONCE ONE Administration Thiamine HCl 100 mg 10/27/22 17:46 10/27/22 18:09 Thiamine Hcl 100 Mg Tablet PO 10/27/22 17:47 100 mg ONCE ONE Administration Discharge Plan Discharge Clinical Impression: Alcoholic intoxication Patient Disposition: Still a Patient Prescriptions: No Action nicotine (polacrilex) 2 mg Gum 4 mg buccal Q2H PRN (Reason: Nicotine Cravings) Qty: 100 0RF fluoxetine 40 mg capsule 80 mg PO DAILY Qty: 60 0RF clonazepam 1 mg tablet 1 mg PO BID olanzapine 10 mg tablet 10 mg PO BEDTIME propranolol 10 mg tablet 10 mg PO BID clonidine HCl 0.1 mg tablet 0.05 mg PO BID clonidine HCl 0.1 mg tablet 0.1 mg PO BEDTIME lamotrigine 200 mg tablet 200 mg PO BID buspirone 30 mg tablet 30 mg PO BID
--- NOTE | 2022-10-27 17:29 | PC.NURSE ---
Pt undressed, belongings secured for safety.
[2022-10-27 17:32] LABS: Appearance Urine Clear; Color Urine Yellow; Glucose Urine UA Negative (Negative); Leukocyte Esterase Urine Negative (Negative); Nitrite Urine Negative (Negative); PH 6.5 (5.0-9.0); Specific Gravity - Urine <= 1.005 (1.005-1.025); Urine Blood Negative (Negative); Urine Ketones Negative (Negative); Urine Protein Negative (Neg-Trace)
[2022-10-27 17:41] LABS: Amphetamine Screen Urine Not Detected (Not Detect); Barbiturates, Urine Not Detected (Not Detect); Benzodiazepines Screen Urine Not Detected (Not Detect); Cannabinoid Screen Urine Not Detected (Not Detect); Cocaine Screen Urine Not Detected (Not Detect); Opiate Screen Urine Not Detected (Not Detect); Phencyclidine Screen Urine Not Detected (Not Detect)
[2022-10-27 17:43] LABS: Alanine Aminotransferase 38 U/L (0-40); Albumin Level 4.5 g/dL (3.5-5.0); Alkaline Phosphatase 113 U/L (39-117); Anion Gap 15 (12-20); Aspartate Amino Transferase 33 U/L (5-37); Bilirubin Total 0.6 mg/dL (0.0-1.0); Blood Urea Nitrogen 9 mg/dL (9-16); Calcium 9.4 mg/dL (8.4-10.2); Carbon Dioxide 25 mmol/L (22-29); Chloride 110 mmol/L (96-108); Creatinine Clr Calc Pharmacy 132.2; Estimated Glomerular Filt Rate > 60; Ethanol 215 mg/dL; Glucose Random 125 mg/dL (60-115); Potassium 3.7 mmol/L (3.3-5.1); Sodium 146 mmol/L (135-145); Total Protein 7.2 g/dL (6.5-8.0)
[2022-10-27 17:48] LABS: IDNOW Serial# 08D9AD1C
[2022-10-27 17:49] LABS: COVID-19 Test Negative (Negative)
[2022-10-27] MEDS: Thiamine HCL 100 MG TABLET PO (18:09)
[2022-10-27] MEDS: Multivitamin TABLET 1 TAB PO (18:09)
[2022-10-27] MEDS: Folic Acid 1 MG TABLET PO (18:09)
[2022-10-27 18:16] LABS: Fentanyl, urine Not Detected (Not Detect)
[2022-10-27] MEDS: LORazepam 1 MG TABLET 2 MG PO (20:07)
--- NOTE | 2022-10-27 22:24 | MHC.CARE ---
CARE team assessment complete. Plan is for voluntary inpatient psych placement. No beds available this evening, bedsearch will resume tomorrow.
[2022-10-28] MEDS: LORazepam 1 MG TABLET 2 MG PO ×2 (03:14→12:32)
--- NOTE | 2022-10-28 05:37 | PC.NURSE ---
Patient slept through the night, no distress observed/reported, Ativan 2 mg PO administered @ 2050 & 313 for comfort due to history ETOH withdrawal, disposition per care team is voluntary inpatient bed Search, behavior super pleasant, VSS, will continue to monitor for withdrawal and safety
[2022-10-28 05:49] VITALS: BP 139/81; PULSE 70; RESP 19; TEMP 37.2; O2SAT 97
[2022-10-28] MEDS: Propranolol HCL 10 MG TABLET PO ×2 (08:29→19:03)
[2022-10-28 08:30] VITALS: BP 141/85; PULSE 72; RESP 16; TEMP 36.6; O2SAT 96
[2022-10-28] MEDS: clonazePAM 1 MG TABLET PO ×2 (08:31→19:03)
[2022-10-28] MEDS: lamoTRIgine 100 MG TABLET 200 MG PO (08:31)
[2022-10-28] MEDS: cloNIDine HCL 0.1 MG TABLET 0.05 MG PO (08:31)
[2022-10-28] MEDS: FLUoxetine HCl 20 MG CAPSULE 80 MG PO (08:32)
--- NOTE | 2022-10-28 14:01 | PC.NURSE ---
Pt calm and cooperative throughout morning, mild anxiety come afternoon however pt then requested his PRN ativan. Pt compliant to taking medications, ate all meals 100%. Asleep at this time. VSS, will CTM
[2022-10-28 14:58] VITALS: BP 113/77; PULSE 63; RESP 18; TEMP 36.7; O2SAT 96
[2022-10-28 16:23] VITALS: BP 138/96; PULSE 85; RESP 16; TEMP 36.4; O2SAT 96; BMI 32.5
[2022-10-28] MEDS: LORazepam 1 MG TABLET PO (17:16)
[2022-10-28] MEDS: traZODone HCL 50 MG TABLET PO (19:03)
[2022-10-28] MEDS: OLANZapine 10 MG TABLET PO (19:03)
[2022-10-28] MEDS: Ibuprofen 600 MG TABLET PO (19:04)
[2022-10-28] MEDS: busPIRone HCl 10 MG TABLET 30 MG PO (19:04)
[2022-10-28] MEDS: cloNIDine HCL 0.1 MG TABLET PO (19:07)
--- NOTE | 2022-10-28 21:50 | PC.ADMIT ---
Pt is a 42 years old male admitted on CV for SI. Pt reports that he was outside yelling that he wanted to hurt himself, a neighbour heard him and called 911. Pt is known to this unit through multiple admissions. Pt is alert and oriented X3, VSS, covid negative and tox screen positive for ETOH. Pt is calm and cooperative, good eye contact. Speech is regular with normal tone, rhythm and citlaly. Pt appears well groomed and dressed appropriately for his age. Pt reports that his sister who he had send to get his CPAP machine is involved in his care. Pt reports that he would be interested to find a sobriety place. Pt reports that he has started drinking and feels depression and ETOH abuse is getting worse for him. Pt endorses SI without a plan but shown a small slice on his ring finger. Pt endorses SI with no plan or intent. Pt denies HI/AH/VH. Admission orders obtained.
[2022-10-29 07:31] LABS: Estimated Average Glucose 85 mg/dL; Hemoglobin A1c % 4.6 %
[2022-10-29 08:00] LABS: Anion Gap 14 (12-20); Carbon Dioxide 25 mmol/L (22-29); Chloride 105 mmol/L (96-108); Cholesterol 267 mg/dL; HDL Cholesterol 47 mg/dL; LDL Cholesterol Calculated 180 mg/dl; Potassium 4.3 mmol/L (3.3-5.1); Sodium 140 mmol/L (135-145); Triglycerides 202 mg/dL
[2022-10-29 08:25] VITALS: BP 132/78; PULSE 69; RESP 16; TEMP 36.3; O2SAT 98
[2022-10-29] MEDS: FLUoxetine HCl 20 MG CAPSULE 80 MG PO (08:29)
[2022-10-29] MEDS: clonazePAM 1 MG TABLET PO ×2 (08:30→20:13)
[2022-10-29] MEDS: cloNIDine HCL 0.1 MG TABLET 0.05 MG PO ×2 (08:30→19:52)
[2022-10-29] MEDS: Propranolol HCL 10 MG TABLET PO ×2 (08:30→19:54)
[2022-10-29] MEDS: Nicotine Polacrilex 2 MG GUM 4 MG BUCCAL ×2 (11:02→14:17)
--- NOTE | 2022-10-29 14:41 | HO.PSYCHPN ---
Subjective Subjective Date of Service: 10/29/22 Reason For Visit: SI Subjective Notes: Frost Warning and Conditional Voluntary Medical Problems Affecting Mental Status: No Interim History: pt admitted to [facility] on CV in context of relapse on alcohol and SI. His neighbors called 911 after he became dbelligerant and yelling that he would kill himself. Pt arrived in Ed with ETOH level of 216. He reports relapse on ETOH approximately 1 month ago after being sober since May. He reports the anniversary of his mother's is today and he suspects this was a trigger. He was very close to her and says his life changed greatly after her passing. He reports use of 12 step in past and sister is supportive. He cut tip of finger while intoxicated and says he does not know how. He reports depression, grief, SI with no plan or intent at this time. Pt states he had been taking lamictal 200mg BID but missed 2+ days recently. Denies historyy of rash with lamictal. Medication Compliance: Yes Side effects from medications: No Attending Groups: Yes Review of Systems Acute medical concerns: Yes alcohol withdrawal. CIWA =0 No tremors, sweat, nausea. He denies withdrawal symptoms in past Medical Review of Systems: unchanged Review of Systems Review of Systems CONSTITUTIONAL: Denies weight loss, fever and chills. HEENT: Denies changes in vision and hearing. RESPIRATORY: Denies SOB and cough. CV: Denies palpitations no CP. GI: Denies abdominal pain, nausea, vomiting and diarrhea. : Denies dysuria and urinary frequency. MSK: Denies myalgia and joint pain. SKIN: Denies rash and pruritus.no sweats. Tip of middle finger on right hand has open wound, skin flap with no drainage no swelling and slight redness. NEUROLOGICAL: Denies headache and syncope.No tremors PSYCHIATRIC: See HPI All other ROS are negative unless in HPI Mental Status Exam Mental Status Exam Patient Appearance: Appropriate Patient Orientation: Person, Place, Time and Situation Level of Consciousness: Awake, Alert and Follows Commands Patient Behavior: Appropriate, Cooperative, Anxious, Fatigued and Good Eye Contact Mood Description: Depressed and Anxious Affect Description: Sad Patient Cognition Impaired: No Ability to Follow Directions: Good Speech Pattern: Clear and Difficulty Finding Words Memory Description: Intact Hallucinations: None Delusions: Not Present Thought Process: Intact and Goal Oriented Thought Content: positive for Intact and positive for Suicidal Ideation (passive SI with no plan and no intent) Depressive Symptoms: Increased Anxiety, Insomnia, Diff. Making Decisions, Increased Irritability, Difficulty Sleeping, Changes in Appetite, Crying Spells, Feelings of Worthlessness, Hopelessness, Isolating-Friends/Family, Feelings of Guilt, Unhappiness, Increased Fatigue, Thoughts of /Suicide, Loss of Energy and Difficulty Concentrating Judgement: Fair Diagnostics Vital Signs (24Hr): Vital Signs - 24 hr 10/28/22 14:58 10/28/22 16:23 10/29/22 08:25 Temperature 98.1 F 97.6 F 97.3 F Pulse Rate 63 85 69 Respiratory Rate 18 16 16 Blood Pressure 113/77 138/96 H 132/78 Pulse Oximetry 96 96 98 Oxygen Delivery Method Room Air Room Air Room Air BMI result Body Mass Index 32.5 Labs 10/27/22 17:18 10/29/22 07:35 Labs: Laboratory Results - last 48 hr 10/27/22 10/27/22 10/27/22 17:18 17:18 17:18 WBC 6.2 RBC 5.32 Hgb 15.8 Hct 47.0 MCV 88.3 MCH 29.7 MCHC 33.6 RDW 14.5 Plt Count 182 MPV 9.0 L Immature Gran % (Auto) 0.2 Neut % (Auto) 62.4 Lymph % (Auto) 26.5 [place] % (Auto) 5.6 Eos % (Auto) 4.7 H Baso % (Auto) 0.6 Lymph # (Auto) 1.7 [place] # (Auto) 0.4 Eos # (Auto) 0.3 Baso # (Auto) 0.0 Abs Immat Gran (auto) 0.01 Absolute Neuts (auto) 3.9 Absolute Nucleated RBC 0.000 Nucleated RBC % (auto) 0.0 Sodium 146 H Potassium 3.7 Chloride 110 H Carbon Dioxide 25 Anion Gap 15 BUN 9 Creatinine 0.95 Estim Creat Clear Calc 132.2 Estimated GFR > 60 Random Glucose 125 H Estimat Average Glucose Hemoglobin A1c % Calcium 9.4 Total Bilirubin 0.6 AST 33 ALT 38 Alkaline Phosphatase 113 Total Protein 7.2 Albumin 4.5 Triglycerides Cholesterol LDL Cholesterol, Calc HDL Cholesterol Urine Color Urine Appearance Urine pH Ur Specific [place] Urine Protein Urine Glucose (UA) Urine Ketones Urine Blood Urine Nitrite Ur Leukocyte Esterase Urine Opiates Screen Urine Fentanyl Screen Ur Barbiturates Screen Ur Phencyclidine Scrn Ur Amphetamines Screen U Benzodiazepines Scrn Urine Cocaine Screen U Marijuana (THC) Screen Ethyl Alcohol 215 COVID-19 (COLE) Negative COVID-19 [employer] Com See Note 10/27/22 10/27/22 10/29/22 17:18 17:18 06:56 WBC RBC Hgb Hct MCV MCH MCHC RDW Plt Count MPV Immature Gran % (Auto) Neut % (Auto) Lymph % (Auto) [place] % (Auto) Eos % (Auto) Baso % (Auto) Lymph # (Auto) [place] # (Auto) Eos # (Auto) Baso # (Auto) Abs Immat Gran (auto) Absolute Neuts (auto) Absolute Nucleated RBC Nucleated RBC % (auto) Sodium Potassium Chloride Carbon Dioxide Anion Gap BUN Creatinine Estim Creat Clear Calc Estimated GFR Random Glucose Estimat Average Glucose 85 Hemoglobin A1c % 4.6 Calcium Total Bilirubin AST ALT Alkaline Phosphatase Total Protein Albumin Triglycerides Cholesterol LDL Cholesterol, Calc HDL Cholesterol Urine Color Yellow Urine Appearance Clear Urine pH 6.5 Ur Specific [place] <= 1.005 Urine Protein Negative Urine Glucose (UA) Negative Urine Ketones Negative Urine Blood Negative Urine Nitrite Negative Ur Leukocyte Esterase Negative Urine Opiates Screen Not Detected Urine Fentanyl Screen Not Detected Ur Barbiturates Screen Not Detected Ur Phencyclidine Scrn Not Detected Ur Amphetamines Screen Not Detected U Benzodiazepines Scrn Not Detected Urine Cocaine Screen Not Detected U Marijuana (THC) Screen Not Detected Ethyl Alcohol COVID-19 (COLE) [employer] Com 10/29/22 07:35 WBC RBC Hgb Hct MCV MCH MCHC RDW Plt Count MPV Immature Gran % (Auto) Neut % (Auto) Lymph % (Auto) [place] % (Auto) Eos % (Auto) Baso % (Auto) Lymph # (Auto) [place] # (Auto) Eos # (Auto) Baso # (Auto) Abs Immat Gran (auto) Absolute Neuts (auto) Absolute Nucleated RBC Nucleated RBC % (auto) Sodium 140 Potassium 4.3 Chloride 105 Carbon Dioxide 25 Anion Gap 14 BUN Creatinine Estim Creat Clear Calc Estimated GFR Random Glucose Estimat Average Glucose Hemoglobin A1c % Calcium Total Bilirubin AST ALT Alkaline Phosphatase Total Protein Albumin Triglycerides 202 Cholesterol 267 LDL Cholesterol, Calc 180 HDL Cholesterol 47 Urine Color Urine Appearance Urine pH Ur Specific [place] Urine Protein Urine Glucose (UA) Urine Ketones Urine Blood Urine Nitrite Ur Leukocyte Esterase Urine Opiates Screen Urine Fentanyl Screen Ur Barbiturates Screen Ur Phencyclidine Scrn Ur Amphetamines Screen U Benzodiazepines Scrn Urine Cocaine Screen U Marijuana (THC) Screen Ethyl Alcohol COVID-19 (COLE) COVID-19 Clin Com Medications Medications Current Medications Acetaminophen (Acetaminophen 325 Mg Tablet) 650 mg PO Q6H PRN PRN Reason: Headache/Pain Mild Scale (1-3) Al Hydroxide/Mg Hydroxide (Magnesium Hydrox/Alum Hydrox 30 Ml Oral.Susp) 30 ml PO Q6H PRN PRN Reason: Heartburn/Nausea Buspirone HCl (Buspirone Hcl 10 Mg Tablet) 30 mg PO BID [facility] Last Admin: 10/29/22 08:29 Dose: Not Given Clonazepam (Clonazepam 1 Mg Tablet) 1 mg PO BID [facility] Last Admin: 10/29/22 08:30 Dose: 1 mg Clonidine HCl (Clonidine Hcl 0.1 Mg Tablet) 0.05 mg PO BID [facility]; Protocol Last Admin: 10/29/22 08:30 Dose: 0.05 mg Clonidine HCl (Clonidine Hcl 0.1 Mg Tablet) 0.1 mg PO BEDTIME [facility]; Protocol Last Admin: 10/28/22 19:07 Dose: 0.1 mg Fluoxetine HCl (Fluoxetine Hcl 20 Mg Capsule) 80 mg PO DAILY [facility] Last Admin: 10/29/22 08:29 Dose: 80 mg Hydroxyzine HCl (Hydroxyzine Hcl 25 Mg Tablet) 25 mg PO Q6H PRN PRN Reason: Anxiety Ibuprofen (Ibuprofen 600 Mg Tablet) 600 mg PO Q6H PRN PRN Reason: Pain, Moderate(Pain Scale 4-6) Last Admin: 10/28/22 19:04 Dose: 600 mg Lorazepam (Lorazepam 1 Mg Tablet) 1 mg PO Q2H PRN PRN Reason: CIWA 6-10 Last Admin: 10/28/22 17:16 Dose: 1 mg Lorazepam (Lorazepam 1 Mg Tablet) 2 mg PO Q2H PRN PRN Reason: CIWA 11 and above Magnesium Hydroxide (Milk Of Magnesia 30 Ml Oral.Susp) 30 ml PO DAILY PRN PRN Reason: Constipation Nicotine (Nicotine 21 Mg Patch.Td24) 21 mg TRANSDERMA DAILY [facility] Last Admin: 10/29/22 08:43 Dose: Not Given Nicotine Polacrilex (Nicotine Polacrilex 2 Mg Gum) 4 mg BUCCAL Q2H PRN PRN Reason: Nicotine Cravings Last Admin: 10/29/22 14:17 Dose: 4 mg Olanzapine (Olanzapine 10 Mg Tablet) 10 mg PO BEDTIME [facility] Last Admin: 10/28/22 19:03 Dose: 10 mg Propranolol HCl (Propranolol Hcl 10 Mg Tablet) 10 mg PO BID [facility]; Protocol Last Admin: 10/29/22 08:30 Dose: 10 mg Trazodone HCl (Trazodone Hcl 50 Mg Tablet) 50 mg PO BEDTIME MRX1 PRN PRN Reason: Insomnia Last Admin: 10/28/22 19:03 Dose: 50 mg Allergies Allergies Allergy/AdvReac Type Severity Reaction Status Date / Time mirtazapine [MIRTAZAPINE] Allergy Intermediate UNKNOWN Verified 12/21/21 12:10 sulfamethoxazole Allergy Unknown RASH Verified 12/21/21 12:10 [From BACTRIM] trimethoprim [From BACTRIM] Allergy Unknown RASH Verified 12/21/21 12:10 Assessment & Plan Assessment & Plan (1) Alcohol abuse: Status: Acute Code(s): F10.10 - Alcohol abuse, uncomplicated (2) Bipolar 1 disorder, depressed, severe: Status: Acute Code(s): F31.4 - Bipolar disorder, current episode depressed, severe, without psychotic features (3) Obsessive compulsive disorder: Qualifiers: Obsessive-compulsive disorder type: unspecified Qualified Code(s): F42.9 - Obsessive-compulsive disorder, unspecified Status: Acute Code(s): F42.9 - Obsessive-compulsive disorder, unspecified (4) Alcohol withdrawal: Status: Acute Code(s): F10.939 - Alcohol use, unspecified with withdrawal, unspecified (5) Bereavement reaction: Status: Acute Code(s): F43.20 - Adjustment disorder, unspecified; Z63.4 - Disappearance and of family member Plan Assessment: 42 yo male, 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 ELS is 7 days Plan CV and 15 min checks CIWA protocol restart home meds restart lamictal 50 mg at bedtime and titrate as tolerated bacitracin and bandage to finger to with self inflected cut at bedtime consider referral to PHP after discharge Patient educated on: diagnosis, medication risk/benefits, substance abuse and therapeutic strategies Informed Consent: understands and further education needed Reason for continued inpatient stay Substantial Risk for: harm to self, inability to function and rapid decompensation Time Spent With Patient Time: Total time managing care of this patient today __30__ minutes.
--- NOTE | 2022-10-29 15:14 | P.HPPS_ITS ---
[facility] Date of Service: 10/29/22 Chief Complaint: SI Sources of Information: patient interviewed, chart reviewed and crisis/core team assessment reviewed HPI Subjective Notes: Frost Warning and Conditional Voluntary Medical Problems Affecting Mental Status: No Narrative: pt admitted to on CV in context of relapse on alcohol and SI. His neighbors called 911 after he became dbelligerant and yelling that he would kill himself. Pt arrived in Ed with ETOH level of 216. He reports relapse on ETOH approximately 1 month ago after being sober since May. He reports the anniversary of his mother's is today and he suspects this was a trigger. He was very close to her and says his life changed greatly after her passing. He reports use of 12 step in past and sister is supportive. He cut tip of finger while intoxicated and says he does not know how. He reports depression, grief, SI with no plan or intent at this time. Pt states he had been taking lamictal 200mg BID but missed 2+ days recently. Denies historyy of rash with lamictal. Past Psychiatric History: Hospital stays: Last admission to spring 2022. [place] 2013 He had ECT . has had at least 3 hosps. also has done PHP at least once, which he found helpful, and some [facility] stays. no h/o suicide attempts (but did place a plastic bag over his head during [facility] stay once). h/o SIB - cutting. has required stitches in the past. also slapping himself in the face. Therapist is HOANG Pang. Psychiatrist is HOANG Sanchez. HISTORY OF SEROTONIN SYNDROME Medical Evaluation Reviewed: Yes [facility] Medical History Alcohol use disorder, mild, in controlled environment, abuse HTN (hypertension) Tachycardia Transaminitis Family History: Father committed suicide. alcohol use disorder. sister - alcohol use disorder. Social History: Lived with his mother. Mother last year 10/29/21 youngest of 4 children. father suicided when pt was 9 yo. 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 single. No children. Substance History: long history of etoh abuse Trauma History: Father's suicide Diagnostics Vital Signs (24Hr): Vital Signs - 24 hr 10/28/22 16:23 10/29/22 08:25 Temperature 97.6 F 97.3 F Pulse Rate 85 69 Respiratory Rate 16 16 Blood Pressure 138/96 H 132/78 Pulse Oximetry 96 98 Oxygen Delivery Method Room Air Room Air BMI result Body Mass Index 32.5 Labs 10/27/22 17:18 10/29/22 07:35 Labs: Laboratory Results - last 48 hr 10/27/22 10/27/22 10/27/22 17:18 17:18 17:18 WBC 6.2 RBC 5.32 Hgb 15.8 Hct 47.0 MCV 88.3 MCH 29.7 MCHC 33.6 RDW 14.5 Plt Count 182 MPV 9.0 L Immature Gran % (Auto) 0.2 Neut % (Auto) 62.4 Lymph % (Auto) 26.5 Cass % (Auto) 5.6 Eos % (Auto) 4.7 H Baso % (Auto) 0.6 Lymph # (Auto) 1.7 Cass # (Auto) 0.4 Eos # (Auto) 0.3 Baso # (Auto) 0.0 Abs Immat Gran (auto) 0.01 Absolute Neuts (auto) 3.9 Absolute Nucleated RBC 0.000 Nucleated RBC % (auto) 0.0 Sodium 146 H Potassium 3.7 Chloride 110 H Carbon Dioxide 25 Anion Gap 15 BUN 9 Creatinine 0.95 Estim Creat Clear Calc 132.2 Estimated GFR > 60 Random Glucose 125 H Estimat Average Glucose Hemoglobin A1c % Calcium 9.4 Total Bilirubin 0.6 AST 33 ALT 38 Alkaline Phosphatase 113 Total Protein 7.2 Albumin 4.5 Triglycerides Cholesterol LDL Cholesterol, Calc HDL Cholesterol Urine Color Urine Appearance Urine pH Ur Specific [place] Urine Protein Urine Glucose (UA) Urine Ketones Urine Blood Urine Nitrite Ur Leukocyte Esterase Urine Opiates Screen Urine Fentanyl Screen Ur Barbiturates Screen Ur Phencyclidine Scrn Ur Amphetamines Screen U Benzodiazepines Scrn Urine Cocaine Screen U Marijuana (THC) Screen Ethyl Alcohol 215 COVID-19 (COLE) Negative COVID-19 Clin Com See Note 10/27/22 10/27/22 10/29/22 17:18 17:18 06:56 WBC RBC Hgb Hct MCV MCH MCHC RDW Plt Count MPV Immature Gran % (Auto) Neut % (Auto) Lymph % (Auto) Cass % (Auto) Eos % (Auto) Baso % (Auto) Lymph # (Auto) Cass # (Auto) Eos # (Auto) Baso # (Auto) Abs Immat Gran (auto) Absolute Neuts (auto) Absolute Nucleated RBC Nucleated RBC % (auto) Sodium Potassium Chloride Carbon Dioxide Anion Gap BUN Creatinine Estim Creat Clear Calc Estimated GFR Random Glucose Estimat Average Glucose 85 Hemoglobin A1c % 4.6 Calcium Total Bilirubin AST ALT Alkaline Phosphatase Total Protein Albumin Triglycerides Cholesterol LDL Cholesterol, Calc HDL Cholesterol Urine Color Yellow Urine Appearance Clear Urine pH 6.5 Ur Specific [place] <= 1.005 Urine Protein Negative Urine Glucose (UA) Negative Urine Ketones Negative Urine Blood Negative Urine Nitrite Negative Ur Leukocyte Esterase Negative Urine Opiates Screen Not Detected Urine Fentanyl Screen Not Detected Ur Barbiturates Screen Not Detected Ur Phencyclidine Scrn Not Detected Ur Amphetamines Screen Not Detected U Benzodiazepines Scrn Not Detected Urine Cocaine Screen Not Detected U Marijuana (THC) Screen Not Detected Ethyl Alcohol COVID-19 (COLE) COVID-[employer] [place] IT 10/29/22 07:35 WBC RBC Hgb Hct MCV MCH MCHC RDW Plt Count MPV Immature Gran % (Auto) Neut % (Auto) Lymph % (Auto) Cass % (Auto) Eos % (Auto) Baso % (Auto) Lymph # (Auto) Cass # (Auto) Eos # (Auto) Baso # (Auto) Abs Immat Gran (auto) Absolute Neuts (auto) Absolute Nucleated RBC Nucleated RBC % (auto) Sodium 140 Potassium 4.3 Chloride 105 Carbon Dioxide 25 Anion Gap 14 BUN Creatinine Estim Creat Clear Calc Estimated GFR Random Glucose Estimat Average Glucose Hemoglobin A1c % Calcium Total Bilirubin AST ALT Alkaline Phosphatase Total Protein Albumin Triglycerides 202 Cholesterol 267 LDL Cholesterol, Calc 180 HDL Cholesterol 47 Urine Color Urine Appearance Urine pH Ur Specific [place] Urine Protein Urine Glucose (UA) Urine Ketones Urine Blood Urine Nitrite Ur Leukocyte Esterase Urine Opiates Screen Urine Fentanyl Screen Ur Barbiturates Screen Ur Phencyclidine Scrn Ur Amphetamines Screen U Benzodiazepines Scrn Urine Cocaine Screen U Marijuana (THC) Screen Ethyl Alcohol COVID-19 (COLE) COVID-19 [place] Meds/Allergies Meds Home Medications Medication Instructions Recorded Confirmed Type buspirone 30 mg tablet 30 mg PO BID 10/27/22 10/27/22 History clonazepam 1 mg tablet 1 mg PO BID 10/27/22 10/27/22 History clonidine HCl 0.1 mg tablet 0.05 mg PO BID 10/27/22 10/27/22 History clonidine HCl 0.1 mg tablet 0.1 mg PO BEDTIME 10/27/22 10/27/22 History lamotrigine 200 mg tablet 200 mg PO BID 10/27/22 10/27/22 History olanzapine 10 mg tablet 10 mg PO BEDTIME 10/27/22 10/27/22 History propranolol 10 mg tablet 10 mg PO BID 10/27/22 10/27/22 History Narrative: pt states he has been taking lamictal 200mg bid but missed 2+ days Allergies Allergies Allergy/AdvReac Type Severity Reaction Status Date / Time mirtazapine [MIRTAZAPINE] Allergy Intermediate UNKNOWN Verified 12/21/21 12:10 sulfamethoxazole Allergy Unknown RASH Verified 12/21/21 12:10 [From BACTRIM] trimethoprim [From BACTRIM] Allergy Unknown RASH Verified 12/21/21 12:10 Mental Status Exam Mental Status Exam Patient Appearance: Appropriate Patient Orientation: Person, Place, Time and Situation Level of Consciousness: Awake, Alert and Follows Commands Patient Behavior: Appropriate, Cooperative, Anxious, Fatigued and Good Eye Contact Mood Description: Depressed and Anxious Affect Description: Sad Patient Cognition Impaired: No Ability to Follow Directions: Good Speech Pattern: Clear and Difficulty Finding Words Memory Description: Intact Hallucinations: None Delusions: Not Present Thought Process: Intact Thought Content: positive for Intact and positive for Suicidal Ideation (passive no plan or intent) Depressive Symptoms: Increased Anxiety, Insomnia, Increased Irritability, Difficulty Sleeping, Changes in Appetite, Crying Spells, Feelings of Worthlessness, Hopelessness, Unhappiness, Increased Fatigue, Loss of Energy and Difficulty Concentrating Judgement: Fair Assessment & Plan Assessment & Plan (1) Alcohol abuse: Status: Acute Code(s): F10.10 - Alcohol abuse, uncomplicated (2) Bipolar 1 disorder, depressed, severe: Status: Acute Code(s): F31.4 - Bipolar disorder, current episode depressed, severe, without psychotic features (3) Obsessive compulsive disorder: Status: Acute Qualifiers: Obsessive-compulsive disorder type: unspecified Qualified Code(s): F42.9 - Obsessive-compulsive disorder, unspecified Code(s): F42.9 - Obsessive-compulsive disorder, unspecified (4) Alcohol withdrawal: Status: Acute Code(s): F10.939 - Alcohol use, unspecified with withdrawal, unspecified (5) Bereavement reaction: Status: Acute Code(s): F43.20 - Adjustment disorder, unspecified; Z63.4 - Disappearance and of family member Plan Assessment: 42 yo male, 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 ELS is 7 days Plan CV and 15 min checks CIWA protocol start thiamine restart home meds restart lamictal 50 mg at bedtime and titrate as tolerated bacitracin and bandage to finger to with self inflected cut at bedtime consider referral to PHP after discharge Patient educated on: diagnosis, medication risk/benefits and therapeutic strategies Informed Consent: understands and further education needed Reason for continued inpatient stay Substantial Risk for: harm to self, inability to function and rapid decompensation Statement Statement: I have reviewed the history and physical and performed a pertinent examination on my patient. No changes have occurred unless specified. If the History and Physical was not performed prior to admission, the Hospitalist's service will be consulted for completing the admission physical. Time Spent With Patient Time: Total time managing care of this patient today _30___ minutes.
[2022-10-29 18:00] VITALS: BP 134/82; PULSE 72; TEMP 36.2; O2SAT 96
[2022-10-29] MEDS: Acetaminophen 325 MG TABLET 650 MG PO (19:51)
[2022-10-29] MEDS: cloNIDine HCL 0.1 MG TABLET PO (19:54)
[2022-10-29] MEDS: lamoTRIgine 25 MG TABLET 50 MG PO (19:55)
[2022-10-29] MEDS: busPIRone HCl 10 MG TABLET 30 MG PO (19:57)
[2022-10-29] MEDS: traZODone HCL 50 MG TABLET PO (19:58)
[2022-10-29] MEDS: OLANZapine 10 MG TABLET PO (19:58)
[2022-10-30 08:50] VITALS: BP 117/70; PULSE 61; RESP 16; TEMP 36.6; O2SAT 99
[2022-10-30] MEDS: FLUoxetine HCl 20 MG CAPSULE 80 MG PO (08:54)
[2022-10-30] MEDS: clonazePAM 1 MG TABLET PO ×2 (08:54→20:22)
[2022-10-30] MEDS: cloNIDine HCL 0.1 MG TABLET 0.05 MG PO ×2 (08:54→20:22)
[2022-10-30] MEDS: Propranolol HCL 10 MG TABLET PO ×2 (08:54→20:22)
[2022-10-30] MEDS: Thiamine HCL 100 MG TABLET PO (08:54)
[2022-10-30] MEDS: Nicotine Polacrilex 2 MG GUM 4 MG BUCCAL ×2 (09:59→13:07)
--- NOTE | 2022-10-30 11:34 | P.PNPSI_ITS ---
Subjective Subjective Date of Service: 10/30/22 Reason For Visit: SI Subjective Notes: Conditional Voluntary Medical Problems Affecting Mental Status: No Interim History: pt cooperative; pleasant; reports no alcohol withdrawal; reports he wants to continue the lamictal and thinks he feels a little anxious and sapcey with such a low dose; he thinks he only missed 2 doses of lamictal not 2 days. discussed increase and risk of rash if increasing too fast. Reports feeling depressed and anxious; reports passive SI with no plan nad no intent Medication Compliance: Yes Side effects from medications: No Attending Groups: Yes Review of Systems Acute medical concerns: No Medical Review of Systems: unchanged Mental Status Exam Mental Status Exam Patient Appearance: Well Grooomed and Appropriate Patient Orientation: Person, Place, Time and Situation Level of Consciousness: Awake, Alert and Follows Commands Patient Behavior: Appropriate, Cooperative, Anxious, Fatigued and Good Eye Contact Mood Description: Depressed and Anxious Affect Description: Sad Patient Cognition Impaired: No Ability to Follow Directions: Good Speech Pattern: Clear and Difficulty Finding Words Memory Description: Intact Hallucinations: None Delusions: Not Present Thought Process: Intact and Goal Oriented Thought Content: positive for Intact Judgement: Good Diagnostics Vital Signs (24Hr): Vital Signs - 24 hr 10/29/22 18:00 10/30/22 08:50 Temperature 97.2 F 97.8 F Pulse Rate 72 61 Respiratory Rate 16 Blood Pressure 134/82 117/70 Pulse Oximetry 96 99 Oxygen Delivery Method Room Air BMI result Body Mass Index 32.5 Labs 10/27/22 17:18 10/29/22 07:35 Labs: Laboratory Results - last 48 hr 10/29/22 10/29/22 06:56 07:35 Sodium 140 Potassium 4.3 Chloride 105 Carbon Dioxide 25 Anion Gap 14 Estimat Average Glucose 85 Hemoglobin A1c % 4.6 Triglycerides 202 Cholesterol 267 LDL Cholesterol, Calc 180 HDL Cholesterol 47 Medications Medications Current Medications Acetaminophen (Acetaminophen 325 Mg Tablet) 650 mg PO Q6H PRN PRN Reason: Headache/Pain Mild Scale (1-3) Last Admin: 10/29/22 19:51 Dose: 650 mg Al Hydroxide/Mg Hydroxide (Magnesium Hydrox/Alum Hydrox 30 Ml Oral.Susp) 30 ml PO Q6H PRN PRN Reason: Heartburn/Nausea Bacitracin (Bacitracin Oint 14 Gm Tube) 1 appl TOPICAL BEDTIME [facility]; Protocol Last Admin: 10/29/22 20:08 Dose: Not Given Buspirone HCl (Buspirone Hcl 10 Mg Tablet) 30 mg PO BID [facility] Last Admin: 10/30/22 08:54 Dose: Not Given Clonazepam (Clonazepam 1 Mg Tablet) 1 mg PO BID [facility] Last Admin: 10/30/22 08:54 Dose: 1 mg Clonidine HCl (Clonidine Hcl 0.1 Mg Tablet) 0.05 mg PO BID [facility]; Protocol Last Admin: 10/30/22 08:54 Dose: 0.05 mg Clonidine HCl (Clonidine Hcl 0.1 Mg Tablet) 0.1 mg PO BEDTIME [facility]; Protocol Last Admin: 10/29/22 19:54 Dose: 0.1 mg Fluoxetine HCl (Fluoxetine Hcl 20 Mg Capsule) 80 mg PO DAILY [facility] Last Admin: 10/30/22 08:54 Dose: 80 mg Hydroxyzine HCl (Hydroxyzine Hcl 25 Mg Tablet) 25 mg PO Q6H PRN PRN Reason: Anxiety Ibuprofen (Ibuprofen 600 Mg Tablet) 600 mg PO Q6H PRN PRN Reason: Pain, Moderate(Pain Scale 4-6) Last Admin: 10/28/22 19:04 Dose: 600 mg Lamotrigine (Lamotrigine 25 Mg Tablet) 50 mg PO BID [facility] Lorazepam (Lorazepam 1 Mg Tablet) 1 mg PO Q2H PRN PRN Reason: CIWA 6-10 Last Admin: 10/28/22 17:16 Dose: 1 mg Lorazepam (Lorazepam 1 Mg Tablet) 2 mg PO Q2H PRN PRN Reason: CIWA 11 and above Magnesium Hydroxide (Milk Of Magnesia 30 Ml Oral.Susp) 30 ml PO DAILY PRN PRN Reason: Constipation Nicotine (Nicotine 21 Mg Patch.Td24) 21 mg TRANSDERMA DAILY [facility] Last Admin: 10/30/22 08:57 Dose: Not Given Nicotine Polacrilex (Nicotine Polacrilex 2 Mg Gum) 4 mg BUCCAL Q2H PRN PRN Reason: Nicotine Cravings Last Admin: 10/30/22 09:59 Dose: 4 mg Olanzapine (Olanzapine 10 Mg Tablet) 10 mg PO BEDTIME [facility] Last Admin: 10/29/22 19:58 Dose: 10 mg Propranolol HCl (Propranolol Hcl 10 Mg Tablet) 10 mg PO BID [facility]; Protocol Last Admin: 10/30/22 08:54 Dose: 10 mg Thiamine HCl (Thiamine Hcl 100 Mg Tablet) 100 mg PO DAILY [facility] Last Admin: 10/30/22 08:54 Dose: 100 mg Trazodone HCl (Trazodone Hcl 50 Mg Tablet) 50 mg PO BEDTIME MRX1 PRN PRN Reason: Insomnia Last Admin: 10/29/22 19:58 Dose: 50 mg Allergies Allergies Allergy/AdvReac Type Severity Reaction Status Date / Time mirtazapine [MIRTAZAPINE] Allergy Intermediate UNKNOWN Verified 12/21/21 12:10 sulfamethoxazole Allergy Unknown RASH Verified 12/21/21 12:10 [From BACTRIM] trimethoprim [From BACTRIM] Allergy Unknown RASH Verified 12/21/21 12:10 Assessment & Plan Assessment & Plan (1) Alcohol abuse: Status: Acute Code(s): F10.10 - Alcohol abuse, uncomplicated (2) Bipolar 1 disorder, depressed, severe: Status: Acute Code(s): F31.4 - Bipolar disorder, current episode depressed, severe, without psychotic features (3) Obsessive compulsive disorder: Qualifiers: Obsessive-compulsive disorder type: unspecified Qualified Code(s): F42.9 - Obsessive-compulsive disorder, unspecified Status: Acute Code(s): F42.9 - Obsessive-compulsive disorder, unspecified (4) Alcohol withdrawal: Status: Acute Code(s): F10.939 - Alcohol use, unspecified with withdrawal, unspecified (5) Bereavement reaction: Status: Acute Code(s): F43.20 - Adjustment disorder, unspecified; Z63.4 - Disappearance and of family member Plan Assessment: 42 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 ELS is 7 days Plan CV and 15 min checks CIWA protocol start thiamine restart home meds INCREASE lamictal 50 mg to BID and titrate as tolerated bacitracin and bandage to finger to with self inflected cut at bedtime consider referral to PHP after discharge Patient educated on: medication risk/benefits and therapeutic strategies Informed Consent: understands and further education needed Reason for continued inpatient stay Substantial Risk for: harm to self, inability to function and rapid decompensation Time Spent With Patient Time: Total time managing care of this patient today ____ minutes.
[2022-10-30] MEDS: lamoTRIgine 25 MG TABLET 50 MG PO ×2 (11:46→20:34)
[2022-10-30] MEDS: LORazepam 1 MG TABLET PO (14:31)
--- NOTE | 2022-10-30 14:40 | PC.NURSE ---
PT reporting w/d sx, CIWA= 6 Ativan 1mg given, effect pending
[2022-10-30 20:15] VITALS: BP 111/71; PULSE 70; TEMP 36.6; O2SAT 96
[2022-10-30] MEDS: OLANZapine 10 MG TABLET PO (20:22)
[2022-10-30] MEDS: cloNIDine HCL 0.1 MG TABLET PO (20:22)
[2022-10-30] MEDS: busPIRone HCl 10 MG TABLET 30 MG PO (20:22)
[2022-10-30] MEDS: Acetaminophen 325 MG TABLET 650 MG PO (20:26)
[2022-10-30] MEDS: traZODone HCL 50 MG TABLET PO (20:26)
--- NOTE | 2022-10-30 22:52 | PC.NURSE ---
Patient denied any signs or symptoms of ETOH withdrawal this shift.
[2022-10-31 08:15] VITALS: BP 121/74; PULSE 73; RESP 16; TEMP 36.6; O2SAT 99
[2022-10-31] MEDS: Thiamine HCL 100 MG TABLET PO (08:19)
[2022-10-31] MEDS: clonazePAM 1 MG TABLET PO ×2 (08:19→20:33)
[2022-10-31] MEDS: cloNIDine HCL 0.1 MG TABLET 0.05 MG PO (08:19)
[2022-10-31] MEDS: FLUoxetine HCl 20 MG CAPSULE 80 MG PO (08:19)
[2022-10-31] MEDS: Propranolol HCL 10 MG TABLET PO ×2 (08:19→20:33)
[2022-10-31] MEDS: lamoTRIgine 25 MG TABLET 50 MG PO (08:19)
--- NOTE | 2022-10-31 16:31 | P.PNPSI_ITS ---
Subjective Subjective Date of Service: 10/31/22 Reason For Visit: SI Subjective Notes: Conditional Voluntary Interim History: Reviewed in team. Patient reports feeling good today. Patient stated, I feel perfectly fine physically. I'm not having any withdrawal symptoms. I'm a little depressed because I broke my promise to myself and my mother that I won't drink. I feel hopeful though because this was a slip-up. I want to stay sober. Patient reports he would like to be referred to [facility]; social woker to place referral. Patient stated, I never wanted to . It was just overwhelming with my mothers anniversary and drinking that made me feel that way . Patient denies SI/HI/VH/AH at this time. Medication Compliance: Yes Side effects from medications: No Attending Groups: Yes Review of Systems Constitutional: Reports as per HPI Eyes: Reports as per HPI Reports as per HPI Cardiovascular: Reports as per HPI Respiratory: Reports as per HPI Gastrointestinal: Reports as per HPI Genitourinary: Reports as per HPI Musculoskeletal: Reports as per HPI Skin/Breast: Reports as per HPI Reports as per HPI Psychiatric: Reports as per HPI Endocrine: Reports as per HPI Hematologic/Lymphatic: Reports as per HPI Allergic/Immunologic: Reports as per HPI Mental Status Exam Mental Status Exam Narrative: Pt is alert and oriented; behavior is cooperative and calm; patient is not in distress; dressed in casual attire; mood is described as good ; eye contact appropriate; Speech is normal rate, volume and prosody and not pressured; no psychomotor agitation/retardation present; thought process is organized and goal directed; Thought content is on tx; otherwise pertinent to relevant topics and without any delusional content, paranoid ideations or grandiosity; denies any SI/HI. There is no evidence of perceptual disturbance. Patients insight and judgment are fair. Diagnostics Vital Signs (24Hr): Vital Signs - 24 hr 10/30/22 20:15 10/31/22 08:15 Temperature 97.8 F 97.9 F Pulse Rate 70 73 Respiratory Rate 16 Blood Pressure 111/71 121/74 Pulse Oximetry 96 99 Oxygen Delivery Method Room Air Room Air BMI result Body Mass Index 32.5 Labs 10/27/22 17:18 10/29/22 07:35 Medications Medications Current Medications Acetaminophen (Acetaminophen 325 Mg Tablet) 650 mg PO Q6H PRN PRN Reason: Headache/Pain Mild Scale (1-3) Last Admin: 10/30/22 20:26 Dose: 650 mg Al Hydroxide/Mg Hydroxide (Magnesium Hydrox/Alum Hydrox 30 Ml Oral.Susp) 30 ml PO Q6H PRN PRN Reason: Heartburn/Nausea Clonazepam (Clonazepam 1 Mg Tablet) 1 mg PO BID [facility] Last Admin: 10/31/22 08:19 Dose: 1 mg Clonidine HCl (Clonidine Hcl 0.1 Mg Tablet) 0.1 mg PO BID [facility]; Protocol Fluoxetine HCl (Fluoxetine Hcl 20 Mg Capsule) 80 mg PO DAILY [facility] Last Admin: 10/31/22 08:19 Dose: 80 mg Hydroxyzine HCl (Hydroxyzine Hcl 25 Mg Tablet) 25 mg PO Q6H PRN PRN Reason: Anxiety Ibuprofen (Ibuprofen 600 Mg Tablet) 600 mg PO Q6H PRN PRN Reason: Pain, Moderate(Pain Scale 4-6) Last Admin: 10/28/22 19:04 Dose: 600 mg Lamotrigine (Lamotrigine 25 Mg Tablet) 50 mg PO BID [facility] Last Admin: 10/31/22 08:19 Dose: 50 mg Magnesium Hydroxide (Milk Of Magnesia 30 Ml Oral.Susp) 30 ml PO DAILY PRN PRN Reason: Constipation Nicotine (Nicotine 21 Mg Patch.Td24) 21 mg TRANSDERMA DAILY [facility] Last Admin: 10/31/22 08:33 Dose: Not Given Nicotine Polacrilex (Nicotine Polacrilex 2 Mg Gum) 4 mg BUCCAL Q2H PRN PRN Reason: Nicotine Cravings Last Admin: 10/30/22 13:07 Dose: 4 mg Olanzapine (Olanzapine 10 Mg Tablet) 10 mg PO BEDTIME [facility] Last Admin: 10/30/22 20:22 Dose: 10 mg Propranolol HCl (Propranolol Hcl 10 Mg Tablet) 10 mg PO BID [facility]; Protocol Last Admin: 10/31/22 08:19 Dose: 10 mg Thiamine HCl (Thiamine Hcl 100 Mg Tablet) 100 mg PO DAILY [facility] Last Admin: 10/31/22 08:19 Dose: 100 mg Allergies Allergies Allergy/AdvReac Type Severity Reaction Status Date / Time mirtazapine [MIRTAZAPINE] Allergy Intermediate UNKNOWN Verified 12/21/21 12:10 sulfamethoxazole Allergy Unknown RASH Verified 12/21/21 12:10 [From BACTRIM] trimethoprim [From BACTRIM] Allergy Unknown RASH Verified 12/21/21 12:10 Assessment & Plan Assessment & Plan (1) Alcohol abuse: Status: Acute Code(s): F10.10 - Alcohol abuse, uncomplicated (2) Bipolar 1 disorder, depressed, severe: Status: Acute Code(s): F31.4 - Bipolar disorder, current episode depressed, severe, without psychotic features (3) Obsessive compulsive disorder: Qualifiers: Obsessive-compulsive disorder type: unspecified Qualified Code(s): F42.9 - Obsessive-compulsive disorder, unspecified Status: Acute Code(s): F42.9 - Obsessive-compulsive disorder, unspecified (4) Alcohol withdrawal: Status: Acute Code(s): F10.939 - Alcohol use, unspecified with withdrawal, unspecified (5) Bereavement reaction: Status: Acute Code(s): F43.20 - Adjustment disorder, unspecified; Z63.4 - Disappearance and of family member Plan Assessment: 42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 ELS is 7 days Plan: CV 15 min checks Continue home meds consider referral to PHP after discharge DC: CIWA protocol (patient is denying any withdrawal symptoms and scoring a zero.) Trazodone (patient does not want this medication) Buspar (pt reports this medication was stopped by his outpatient prescriber) Increase: Lamictal 50mg PO daily and 100mg PO bedtime /: Patient reports feeling good today. Denies having any withdrawal symptoms. Upset with himself for relapsing. Hoping to get into PHP, social media assistant to put in referral. Patient educated on: diagnosis, medication risk/benefits and therapeutic strategies Informed Consent: understands Reason for continued inpatient stay Substantial Risk for: med/psych decompensation Time Spent With Patient Time: Total time managing care of this patient today ____ minutes.
[2022-10-31 20:20] VITALS: BP 116/65; PULSE 69; TEMP 36
--- NOTE | 2022-10-31 20:28 | MHC.RECOVSUP ---
? Reason for consult recovery Support o Current location: [facility] o Identified substance use concern: Alcohol - Support ? Intervention: o Community resources provided o Harm reduction discussion ? Plan: o Patient to follow up with H after discharge ? Additional information: Met with patient and we talk about recovery and Harm reduction.. We talked about MAT and the recovery center.. patient was given resources on both.. patient was interested...
[2022-10-31] MEDS: lamoTRIgine 100 MG TABLET PO (20:32)
[2022-10-31] MEDS: OLANZapine 10 MG TABLET PO (20:34)
[2022-10-31] MEDS: cloNIDine HCL 0.1 MG TABLET PO (20:34)
[2022-10-31] MEDS: Ibuprofen 600 MG TABLET PO (20:34)
[2022-11-01 08:23] VITALS: BP 114/77; PULSE 82; RESP 16; TEMP 36.6; O2SAT 99
[2022-11-01] MEDS: FLUoxetine HCl 20 MG CAPSULE 80 MG PO (08:25)
[2022-11-01] MEDS: cloNIDine HCL 0.1 MG TABLET PO ×2 (08:25→20:18)
[2022-11-01] MEDS: clonazePAM 1 MG TABLET PO ×2 (08:25→20:19)
[2022-11-01] MEDS: Thiamine HCL 100 MG TABLET PO (08:25)
[2022-11-01] MEDS: Propranolol HCL 10 MG TABLET PO ×2 (08:25→20:17)
[2022-11-01] MEDS: lamoTRIgine 25 MG TABLET 50 MG PO (08:25)
--- NOTE | 2022-11-01 10:17 | P.PNPSI_ITS ---
Subjective Subjective Date of Service: 11/01/22 Reason For Visit: SI Subjective Notes: Conditional Voluntary Interim History: Reviewed in team and Dr. Simon. Patient reports feeling a lot better today. Patient stated, I slept really well last night. I'm feeling a lot better. I'm just upset that I relapsed. Patient reports he is looking forward to attending PHP and going to AA meetings. He is hoping to be discharged by the end of this week. Patient denies SI/HI/VH/AH at this time. Medication Compliance: Yes Side effects from medications: No Attending Groups: Yes Review of Systems Constitutional: Reports as per HPI Eyes: Reports as per HPI Reports as per HPI Cardiovascular: Reports as per HPI Respiratory: Reports as per HPI Gastrointestinal: Reports as per HPI Genitourinary: Reports as per HPI Musculoskeletal: Reports as per HPI Skin/Breast: Reports as per HPI Reports as per HPI Psychiatric: Reports as per HPI Endocrine: Reports as per HPI Hematologic/Lymphatic: Reports as per HPI Allergic/Immunologic: Reports as per HPI Mental Status Exam Mental Status Exam Narrative: Pt is alert and oriented; behavior is cooperative and calm; patient is not in distress; dressed in casual attire; mood is described as good ; eye contact appropriate; Speech is normal rate, volume and prosody and not pressured; no psychomotor agitation/retardation present; thought process is organized and goal directed; Thought content is on tx; otherwise pertinent to relevant topics and without any delusional content, paranoid ideations or grandiosity; denies any SI/HI. There is no evidence of perceptual disturbance. Patients insight and judgment are fair. Diagnostics Vital Signs (24Hr): Vital Signs - 24 hr 10/31/22 20:20 11/01/22 08:23 Temperature 96.8 F 98 F Pulse Rate 69 82 Respiratory Rate 16 Blood Pressure 116/65 114/77 Pulse Oximetry 99 BMI result Body Mass Index 32.5 Labs 10/27/22 17:18 10/29/22 07:35 Medications Medications Current Medications Acetaminophen (Acetaminophen 325 Mg Tablet) 650 mg PO Q6H PRN PRN Reason: Headache/Pain Mild Scale (1-3) Last Admin: 10/30/22 20:26 Dose: 650 mg Al Hydroxide/Mg Hydroxide (Magnesium Hydrox/Alum Hydrox 30 Ml Oral.Susp) 30 ml PO Q6H PRN PRN Reason: Heartburn/Nausea Clonazepam (Clonazepam 1 Mg Tablet) 1 mg PO BID [facility] Last Admin: 11/01/22 08:25 Dose: 1 mg Clonidine HCl (Clonidine Hcl 0.1 Mg Tablet) 0.1 mg PO BID [facility]; Protocol Last Admin: 11/01/22 08:25 Dose: 0.1 mg Fluoxetine HCl (Fluoxetine Hcl 20 Mg Capsule) 80 mg PO DAILY [facility] Last Admin: 11/01/22 08:25 Dose: 80 mg Hydroxyzine HCl (Hydroxyzine Hcl 25 Mg Tablet) 25 mg PO Q6H PRN PRN Reason: Anxiety Ibuprofen (Ibuprofen 600 Mg Tablet) 600 mg PO Q6H PRN PRN Reason: Pain, Moderate(Pain Scale 4-6) Last Admin: 10/31/22 20:34 Dose: 600 mg Lamotrigine (Lamotrigine 25 Mg Tablet) 50 mg PO DAILY [facility] Last Admin: 11/01/22 08:25 Dose: 50 mg Lamotrigine (Lamotrigine 100 Mg Tablet) 100 mg PO BEDTIME [facility] Last Admin: 10/31/22 20:32 Dose: 100 mg Magnesium Hydroxide (Milk Of Magnesia 30 Ml Oral.Susp) 30 ml PO DAILY PRN PRN Reason: Constipation Nicotine (Nicotine 21 Mg Patch.Td24) 21 mg TRANSDERMA DAILY [facility] Last Admin: 10/31/22 08:33 Dose: Not Given Nicotine Polacrilex (Nicotine Polacrilex 2 Mg Gum) 4 mg BUCCAL Q2H PRN PRN Reason: Nicotine Cravings Last Admin: 10/30/22 13:07 Dose: 4 mg Olanzapine (Olanzapine 10 Mg Tablet) 10 mg PO BEDTIME [facility] Last Admin: 10/31/22 20:34 Dose: 10 mg Propranolol HCl (Propranolol Hcl 10 Mg Tablet) 10 mg PO BID [facility]; Protocol Last Admin: 11/01/22 08:25 Dose: 10 mg Thiamine HCl (Thiamine Hcl 100 Mg Tablet) 100 mg PO DAILY [facility] Last Admin: 11/01/22 08:25 Dose: 100 mg Allergies Allergies Allergy/AdvReac Type Severity Reaction Status Date / Time mirtazapine [MIRTAZAPINE] Allergy Intermediate UNKNOWN Verified 12/21/21 12:10 sulfamethoxazole Allergy Unknown RASH Verified 12/21/21 12:10 [From BACTRIM] trimethoprim [From BACTRIM] Allergy Unknown RASH Verified 12/21/21 12:10 Assessment & Plan Assessment & Plan (1) Alcohol abuse: Status: Acute Code(s): F10.10 - Alcohol abuse, uncomplicated (2) Bipolar 1 disorder, depressed, severe: Status: Acute Code(s): F31.4 - Bipolar disorder, current episode depressed, severe, without psychotic features (3) Obsessive compulsive disorder: Qualifiers: Obsessive-compulsive disorder type: unspecified Qualified Code(s): F42.9 - Obsessive-compulsive disorder, unspecified Status: Acute Code(s): F42.9 - Obsessive-compulsive disorder, unspecified (4) Alcohol withdrawal: Status: Acute Code(s): F10.939 - Alcohol use, unspecified with withdrawal, unspecified (5) Bereavement reaction: Status: Acute Code(s): F43.20 - Adjustment disorder, unspecified; Z63.4 - Disappearance and of family member Plan Assessment: 42 yo male, 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 ELS is 7 days Plan: CV 15 min checks Continue home meds Referral to PHP after discharge Increase: Lamictal 100mg PO BID 10/31: Patient reports feeling good today. Denies having any withdrawal symptoms. Upset with himself for relapsing. Hoping to get into PHP, socially responsible investment adviser to put in referral. 11/01: Patient reports feeling a lot better today; hopeful for the future. Plans on following up with his outpatient providers. Is regretful about relapsing on alcohol. Patients lamictal increased to 100mg PO BID. Patient is hoping for discharge by the end of the week. Patient educated on: diagnosis, medication risk/benefits and therapeutic strategies Informed Consent: understands Reason for continued inpatient stay Substantial Risk for: med/psych decompensation Time Spent With Patient Time: Total time managing care of this patient today ____ minutes.
[2022-11-01 18:00] VITALS: BP 120/78; PULSE 78; TEMP 36.6
[2022-11-01] MEDS: lamoTRIgine 100 MG TABLET PO (20:18)
[2022-11-01] MEDS: OLANZapine 10 MG TABLET PO (20:18)
[2022-11-01] MEDS: Ibuprofen 600 MG TABLET PO (20:21)
[2022-11-02 06:00] VITALS: BP 117/68; PULSE 62; RESP 18
[2022-11-02] MEDS: cloNIDine HCL 0.1 MG TABLET PO ×2 (08:31→20:21)
[2022-11-02] MEDS: Thiamine HCL 100 MG TABLET PO (08:31)
[2022-11-02] MEDS: clonazePAM 1 MG TABLET PO ×2 (08:32→20:20)
[2022-11-02] MEDS: lamoTRIgine 100 MG TABLET PO ×2 (08:32→20:20)
[2022-11-02] MEDS: Propranolol HCL 10 MG TABLET PO ×2 (08:33→20:21)
[2022-11-02] MEDS: FLUoxetine HCl 20 MG CAPSULE 80 MG PO (10:40)
--- NOTE | 2022-11-02 13:59 | HO.PSYCHPN ---
Subjective Subjective Date of Service: 11/02/22 Reason For Visit: SI Subjective Notes: Conditional Voluntary Interim History: Reviewed in team and Dr. Simon. Patient reports feeling excited today. Patient stated, I'm excited about going to [facility] after here. I really want to maintain my sobriety. I'm feeling better than when I came in. 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 Patient denies SI/HI/VH/AH at this time. Plan to discharge patient home on Monday. Medication Compliance: Yes Side effects from medications: No Attending Groups: Yes Review of Systems Constitutional: Reports as per HPI Eyes: Reports as per HPI Reports as per HPI Cardiovascular: Reports as per HPI Respiratory: Reports as per HPI Gastrointestinal: Reports as per HPI Genitourinary: Reports as per HPI Musculoskeletal: Reports as per HPI Skin/Breast: Reports as per HPI Reports as per HPI Psychiatric: Reports as per HPI Endocrine: Reports as per HPI Hematologic/Lymphatic: Reports as per HPI Allergic/Immunologic: Reports as per HPI Mental Status Exam Mental Status Exam Narrative: Pt is alert and oriented; behavior is cooperative and calm; patient is not in distress; dressed in casual attire; mood is described as excited ; eye contact appropriate; Speech is normal rate, volume and prosody and not pressured; no psychomotor agitation/retardation present; thought process is organized and goal directed; Thought content is on tx; otherwise pertinent to relevant topics and without any delusional content, paranoid ideations or grandiosity; denies any SI/HI. There is no evidence of perceptual disturbance. Patients insight and judgment are fair. Diagnostics Vital Signs (24Hr): Vital Signs - 24 hr 11/01/22 18:00 11/02/22 06:00 Temperature 97.8 F Pulse Rate 78 62 Respiratory Rate 18 Blood Pressure 120/78 117/68 Oxygen Delivery Method Room Air BMI result Body Mass Index 32.5 Labs 10/27/22 17:18 10/29/22 07:35 Medications Medications Current Medications Acetaminophen (Acetaminophen 325 Mg Tablet) 650 mg PO Q6H PRN PRN Reason: Headache/Pain Mild Scale (1-3) Last Admin: 10/30/22 20:26 Dose: 650 mg Al Hydroxide/Mg Hydroxide (Magnesium Hydrox/Alum Hydrox 30 Ml Oral.Susp) 30 ml PO Q6H PRN PRN Reason: Heartburn/Nausea Clonazepam (Clonazepam 1 Mg Tablet) 1 mg PO BID [facility] Last Admin: 11/02/22 08:32 Dose: 1 mg Clonidine HCl (Clonidine Hcl 0.1 Mg Tablet) 0.1 mg PO BID [facility]; Protocol Last Admin: 11/02/22 08:31 Dose: 0.1 mg Fluoxetine HCl (Fluoxetine Hcl 20 Mg Capsule) 80 mg PO DAILY [facility] Last Admin: 11/02/22 10:40 Dose: 80 mg Hydroxyzine HCl (Hydroxyzine Hcl 25 Mg Tablet) 25 mg PO Q6H PRN PRN Reason: Anxiety Ibuprofen (Ibuprofen 600 Mg Tablet) 600 mg PO Q6H PRN PRN Reason: Pain, Moderate(Pain Scale 4-6) Last Admin: 11/01/22 20:21 Dose: 600 mg Lamotrigine (Lamotrigine 100 Mg Tablet) 100 mg PO BID [facility] Last Admin: 11/02/22 08:32 Dose: 100 mg Magnesium Hydroxide (Milk Of Magnesia 30 Ml Oral.Susp) 30 ml PO DAILY PRN PRN Reason: Constipation Nicotine (Nicotine 21 Mg Patch.Td24) 21 mg TRANSDERMA DAILY [facility] Last Admin: 11/02/22 08:32 Dose: Not Given Nicotine Polacrilex (Nicotine Polacrilex 2 Mg Gum) 4 mg BUCCAL Q2H PRN PRN Reason: Nicotine Cravings Last Admin: 10/30/22 13:07 Dose: 4 mg Olanzapine (Olanzapine 10 Mg Tablet) 10 mg PO BEDTIME [facility] Last Admin: 11/01/22 20:18 Dose: 10 mg Propranolol HCl (Propranolol Hcl 10 Mg Tablet) 10 mg PO BID [facility]; Protocol Last Admin: 11/02/22 08:33 Dose: 10 mg Thiamine HCl (Thiamine Hcl 100 Mg Tablet) 100 mg PO DAILY [facility] Last Admin: 11/02/22 08:31 Dose: 100 mg Allergies Allergies Allergy/AdvReac Type Severity Reaction Status Date / Time mirtazapine [MIRTAZAPINE] Allergy Intermediate UNKNOWN Verified 12/21/21 12:10 sulfamethoxazole Allergy Unknown RASH Verified 12/21/21 12:10 [From BACTRIM] trimethoprim [From BACTRIM] Allergy Unknown RASH Verified 12/21/21 12:10 Assessment & Plan Assessment & Plan (1) Alcohol abuse: Status: Acute Code(s): F10.10 - Alcohol abuse, uncomplicated (2) Bipolar 1 disorder, depressed, severe: Status: Acute Code(s): F31.4 - Bipolar disorder, current episode depressed, severe, without psychotic features (3) Obsessive compulsive disorder: Qualifiers: Obsessive-compulsive disorder type: unspecified Qualified Code(s): F42.9 - Obsessive-compulsive disorder, unspecified Status: Acute Code(s): F42.9 - Obsessive-compulsive disorder, unspecified (4) Alcohol withdrawal: Status: Acute Code(s): F10.939 - Alcohol use, unspecified with withdrawal, unspecified (5) Bereavement reaction: Status: Acute Code(s): F43.20 - Adjustment disorder, unspecified; Z63.4 - Disappearance and of family member Plan Assessment: 42 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 ELS is 7 days Plan: CV 15 min checks Continue home meds Referral to [facility] after discharge 10/31: Patient reports feeling good today. Denies having any withdrawal symptoms. Upset with himself for relapsing. Hoping to get into [facility], social work lecturer to put in referral. 11/01: Patient reports feeling a lot better today; hopeful for the future. Plans on following up with his outpatient providers. Is regretful about relapsing on alcohol. Patients lamictal increased to 100mg PO BID. Patient is hoping for discharge by the end of the week. 11/02: Patient reports feeling excited about going to [facility] . Continue on current medication regiemen. Plan for discharge home on Monday. Patient educated on: diagnosis, medication risk/benefits and therapeutic strategies Informed Consent: understands Reason for continued inpatient stay Substantial Risk for: med/psych decompensation Time Spent With Patient Time: Total time managing care of this patient today ____ minutes.
[2022-11-02] MEDS: Ibuprofen 600 MG TABLET PO (16:19)
[2022-11-02 20:20] VITALS: BP 126/62; PULSE 72; TEMP 36.2; O2SAT 97
[2022-11-02] MEDS: OLANZapine 10 MG TABLET PO (20:21)
[2022-11-03 06:00] VITALS: BP 142/79; PULSE 80; RESP 16
[2022-11-03] MEDS: Propranolol HCL 10 MG TABLET PO (08:29)
[2022-11-03] MEDS: lamoTRIgine 100 MG TABLET PO (08:29)
[2022-11-03] MEDS: Thiamine HCL 100 MG TABLET PO (08:29)
[2022-11-03] MEDS: clonazePAM 1 MG TABLET PO (08:29)
[2022-11-03] MEDS: FLUoxetine HCl 20 MG CAPSULE 80 MG PO (08:29)
[2022-11-03] MEDS: cloNIDine HCL 0.1 MG TABLET PO (08:30)
--- NOTE | 2022-11-03 11:07 | PM.PSYDC ---
DS: Providers Provider Date of Service: 11/03/22 Date of admission: 10/28/22 14:52 Date of discharge: 11/03/22 Primary care physician: Quan Baker MD Admitting clinician: Payton Lynn Attending physician on admission: Ken Bonilla Attending physician on discharge: Ken Bonilla Discharging clinician: Payton Lynn DS: Diagnosis Discharge Diagnosis (1) Alcohol abuse: Status: Acute (2) Bipolar 1 disorder, depressed, severe: Status: Acute (3) Obsessive compulsive disorder: Status: Acute (4) Alcohol withdrawal: Status: Acute (5) Bereavement reaction: Status: Acute DS: Medications Discharge Medications Home Medications: Home Medications Medication Instructions Recorded Confirmed clonazepam 1 mg tablet 1 mg PO BID 10/27/22 10/27/22 clonidine HCl 0.1 mg tablet 0.05 mg PO BID 10/27/22 10/27/22 olanzapine 10 mg tablet 10 mg PO BEDTIME 10/27/22 10/27/22 propranolol 10 mg tablet 10 mg PO BID 10/27/22 10/27/22 Previous Rx's Medication Instructions Recorded fluoxetine 40 mg capsule 80 mg PO DAILY #60 caps 08/02/22 nicotine (polacrilex) 2 mg gum 4 mg buccal Q2H PRN Nicotine 08/02/22 Cravings #100 ea lamotrigine 100 mg tablet 100 mg PO BID 14 days #28 tabs 11/03/22 Mental Status Exam Mental Status Exam Narrative: Pt is alert and oriented; behavior is cooperative, friendly and calm; patient is not in distress; dressed in casual attire; mood is described as good ; eye contact appropriate; Speech is normal rate, volume and prosody and not pressured; no psychomotor agitation/retardation present; thought process is organized and goal directed; Thought content is on tx; otherwise pertinent to relevant topics and without any delusional content, paranoid ideations or grandiosity; denies any SI/HI. There is no evidence of perceptual disturbance.Patients insight and judgment are fair. Data Data Completed and Pending Completed studies during hospitalization [Text1]: 10/27/22 10/27/22 10/27/22 17:18 17:18 17:18 WBC 6.2 RBC 5.32 Hgb 15.8 Hct 47.0 MCV 88.3 MCH 29.7 MCHC 33.6 RDW 14.5 Plt Count 182 MPV 9.0 L Immature Gran % (Auto) 0.2 Neut % (Auto) 62.4 Lymph % (Auto) 26.5 [place] % (Auto) 5.6 Eos % (Auto) 4.7 H Baso % (Auto) 0.6 Lymph # (Auto) 1.7 [place] # (Auto) 0.4 Eos # (Auto) 0.3 Baso # (Auto) 0.0 Abs Immat Gran (auto) 0.01 Absolute Neuts (auto) 3.9 Absolute Nucleated RBC 0.000 Nucleated RBC % (auto) 0.0 Sodium 146 H Potassium 3.7 Chloride 110 H Carbon Dioxide 25 Anion Gap 15 BUN 9 Creatinine 0.95 Estim Creat Clear Calc 132.2 Estimated GFR > 60 Random Glucose 125 H Estimat Average Glucose Hemoglobin A1c % Calcium 9.4 Total Bilirubin 0.6 AST 33 ALT 38 Alkaline Phosphatase 113 Total Protein 7.2 Albumin 4.5 Triglycerides Cholesterol LDL Cholesterol, Calc HDL Cholesterol Urine Color Urine Appearance Urine pH Ur Specific [place] Urine Protein Urine Glucose (UA) Urine Ketones Urine Blood Urine Nitrite Ur Leukocyte Esterase Urine Opiates Screen Urine Fentanyl Screen Ur Barbiturates Screen Ur Phencyclidine Scrn Ur Amphetamines Screen U Benzodiazepines Scrn Urine Cocaine Screen U Marijuana (THC) Screen Ethyl Alcohol 215 COVID-19 (COLE) Negative COVID-19 Clin Com See Note 10/27/22 10/27/22 10/29/22 17:18 17:18 06:56 WBC RBC Hgb Hct MCV MCH MCHC RDW Plt Count MPV Immature Gran % (Auto) Neut % (Auto) Lymph % (Auto) [place] % (Auto) Eos % (Auto) Baso % (Auto) Lymph # (Auto) [place] # (Auto) Eos # (Auto) Baso # (Auto) Abs Immat Gran (auto) Absolute Neuts (auto) Absolute Nucleated RBC Nucleated RBC % (auto) Sodium Potassium Chloride Carbon Dioxide Anion Gap BUN Creatinine Estim Creat Clear Calc Estimated GFR Random Glucose Estimat Average Glucose 85 Hemoglobin A1c % 4.6 Calcium Total Bilirubin AST ALT Alkaline Phosphatase Total Protein Albumin Triglycerides Cholesterol LDL Cholesterol, Calc HDL Cholesterol Urine Color Yellow Urine Appearance Clear Urine pH 6.5 Ur Specific [place] <= 1.005 Urine Protein Negative Urine Glucose (UA) Negative Urine Ketones Negative Urine Blood Negative Urine Nitrite Negative Ur Leukocyte Esterase Negative Urine Opiates Screen Not Detected Urine Fentanyl Screen Not Detected Ur Barbiturates Screen Not Detected Ur Phencyclidine Scrn Not Detected Ur Amphetamines Screen Not Detected U Benzodiazepines Scrn Not Detected Urine Cocaine Screen Not Detected U Marijuana (THC) Screen Not Detected Ethyl Alcohol COVID-19 (COLE) COVID-19 [employer] Com 10/29/22 07:35 WBC RBC Hgb Hct MCV MCH MCHC RDW Plt Count MPV Immature Gran % (Auto) Neut % (Auto) Lymph % (Auto) [place] % (Auto) Eos % (Auto) Baso % (Auto) Lymph # (Auto) [place] # (Auto) Eos # (Auto) Baso # (Auto) Abs Immat Gran (auto) Absolute Neuts (auto) Absolute Nucleated RBC Nucleated RBC % (auto) Sodium 140 Potassium 4.3 Chloride 105 Carbon Dioxide 25 Anion Gap 14 BUN Creatinine Estim Creat Clear Calc Estimated GFR Random Glucose Estimat Average Glucose Hemoglobin A1c % Calcium Total Bilirubin AST ALT Alkaline Phosphatase Total Protein Albumin Triglycerides 202 Cholesterol 267 LDL Cholesterol, Calc 180 HDL Cholesterol 47 Urine Color Urine Appearance Urine pH Ur Specific [place] Urine Protein Urine Glucose (UA) Urine Ketones Urine Blood Urine Nitrite Ur Leukocyte Esterase Urine Opiates Screen Urine Fentanyl Screen Ur Barbiturates Screen Ur Phencyclidine Scrn Ur Amphetamines Screen U Benzodiazepines Scrn Urine Cocaine Screen U Marijuana (THC) Screen Ethyl Alcohol COVID-19 (COLE) COVID-19 Clin Com DS: Summary Hospital Course Hospital Course: Patient is a 42 yo male, 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 Patient was continued on home mediations upon admission. He denied any withdrawal symptoms; pt was upset with himself for relapsing on alcohol after he had promised his mother and himself that he would never drink again. Patient requested to be referred to PHP d/t helping him in the past. Patient began to feel hopeful for the future after a couple days; he reported planning on following up with his outpatient providers and attending an AA meeting once a day. Patient stated he did not need any refills on his medications since he just picked them up . Patient to attend PHP after discharge. Time spent discussing smoking cessation with patient: 3 to 10 minutes Status at Discharge Functional status at discharge: independent ambulation Overall status at discharge: patient is back to baseline Time Spent with Patient Time attestation: Total time managing care of this patient today ____ minutes. Time spent: Less than 30 minutes Discharge Plan Discharge Anticipated Discharge Date/Time: 11/03/22 11:45 Patient Disposition: Home, Self-Care Discharge Diagnosis: Bipolar d/o, OCD Referrals: [facility] Medication Provider Jaylin Fay [Other] - 11/10/22 11:00 am [facility] Therapy Chasity Styles [Other] - 11/08/22 10:00 am (Telehealth) [facility] [Other] - 3-5 Days (Walk-in services.) [facility] Partial Hospitalization Referral [Other] - 1 Week (A referral has been put in. Please expect a call from Cyndi to schedule an intake appt. ) [facility] [Other] - 1 Week (You can call or stop in. ) Quan Baker MD [Primary Care Provider] - 11/10/22 3:15 pm Discharge Medications: New lamotrigine 100 mg Tablet 100 mg PO BID 14 Days Qty: 28 0RF Continued nicotine (polacrilex) 2 mg Gum 4 mg buccal Q2H PRN (Reason: Nicotine Cravings) Qty: 100 0RF fluoxetine 40 mg capsule 80 mg PO DAILY Qty: 60 0RF clonazepam 1 mg tablet 1 mg PO BID olanzapine 10 mg tablet 10 mg PO BEDTIME propranolol 10 mg tablet 10 mg PO BID clonidine HCl 0.1 mg tablet 0.05 mg PO BID Discontinued clonidine HCl 0.1 mg tablet 0.1 mg PO BEDTIME lamotrigine 200 mg tablet 200 mg PO BID buspirone 30 mg tablet 30 mg PO BID Discharge Orders: Discharge Order (Routine); Ordered 11/03/22 Ordered By: Payton Lynn Diet: Regular diet Activity on Discharge: As tolerated Stand Alone Forms: Patient Portal Discharge page, Community Support Care Plan Goals: Maintain mood and safe behaviors Take medications as prescribed Continue to pursue sobriety Practice coping skills Continue with outpatient providers and reach out to them as needed Health Concerns: Mood stability and behaviors Sobriety Plan of Treatment: Follow up with your PCP, psychiatric provider and other outpatient providers regarding above concerns Take medications as prescribed Assessment: Patient was interviewed prior to discharge and found to be fully oriented and without any SI or HI. Patient has insight and demonstrates good judgment in terms of wanting to pursue treatment. Patient is not in imminent risk of harm to self or others and has a safety plan that includes presenting to the closest ER or calling 911 if feeling unsafe. Patient has been observed closely by nursing and unit staff throughout admission; patient has not engaged in any behaviors that suggest dangerousness to self or others and has demonstrated appropriate behaviors and impulse control Discharge Date/Time: 11/03/22 14:20
== END 2022-11-03 14:20 | disposition home or self-care (01) | DRG 885 ==
LOC: HO.ED 20:10 → HO.PM5 10-28 14:55
PROVIDERS: Admitting Provider Psychiatry & Neurology Psychiatry; Emergency Provider Emergency Medicine; PCP Internal Medicine; Visit Provider Registered Nurse
DX: F31.4 Bipolar disorder, current episode depressed, severe, without psychotic features (principal); R45.851 Suicidal ideations; F10.139 Alcohol abuse with withdrawal, unspecified; F42.9 Obsessive-compulsive disorder, unspecified; I10 Essential (primary) hypertension; F10.129 Alcohol abuse with intoxication, unspecified; F17.210 Nicotine dependence, cigarettes, uncomplicated; Z71.6 Tobacco abuse counseling; Y90.7 Blood alcohol level of 200-239 mg/100 ml; F43.20 Adjustment disorder, unspecified; Z63.4 Disappearance and death of family member; Z91.52 Personal history of nonsuicidal self-harm; Z20.822 Contact with and (suspected) exposure to COVID-19; Z79.899 Other long term (current) drug therapy
CPT/HCPCS: 36415; 80051; 80053; 80061; 80307; 81003; 83036; 85025; 87635; 93005; 99285

== ENCOUNTER 2022-11-07 07:08 | Emergency (ER) | payer MEDICARE, MEDICAID, SELFPAY ==
--- NOTE | ~2022-11-07 | US_ITS ---
EXAMINATION: US ABDOMEN LIMITED CLINICAL INFORMATION: Right upper quadrant pain.. COMPARISON: CT abdomen and pelvis noncontrast 05/30/2022. TECHNIQUE: Real-time imaging of the right upper quadrant abdominal viscera, liver and gallbladder. FINDINGS: LIVER: There is hepatomegaly with liver measuring 20 cm in length and mild increased hepatic parenchymal echogenicity consistent with hepatic steatosis as noted on the CT study. The liver surface is smooth. The parenchyma is homogeneous. There is no hepatic parenchymal lesion or intrahepatic biliary ductal dilatation. Doppler shows portal flow towards the liver. GALLBLADDER: Normal. The gallbladder is physiologically distended without evidence of stones, sludge, polyps, wall thickening or pericholecystic fluid. Patient is noted to be tender in the gallbladder area with transducer compression. COMMON BILE DUCT: Normal in caliber measuring 0.3 cm in diameter. No choledocholithiasis. FREE FLUID: None. US/US abdomen limited IMPRESSION: - No cholelithiasis, gallbladder wall thickening, or ductal dilatation. - Mild hepatomegaly secondary to hepatic steatosis.
[2022-11-07 07:13] VITALS: BP 156/94; PULSE 73; RESP 18; TEMP 36.6; O2SAT 97; BMI 32.5
--- NOTE | 2022-11-07 07:36 | ECG_ITS ---
Test Reason : dizziness Blood Pressure : / mmHG Vent. Rate : 077 BPM Atrial Rate : 077 BPM P-R Int : 172 ms QRS Dur : 098 ms QT Int : 410 ms P-R-T Axes : 077 -28 031 degrees QTc Int : 463 ms Normal sinus rhythm T wave abnormality, consider anterior ischemia Abnormal ECG When compared with ECG of 27-OCT-2022 18:03, No significant change was found Referred By: Morelia Palmer Electronically Signed By:DESI DE LEÓN MD
--- NOTE | 2022-11-07 07:36 | ED_ITS ---
HPI - General Adult General Chief complaint: Dizziness Stated complaint: Unsteady/Headache/Doesnt feel right Time Seen by Provider: 11/07/22 07:35 Source: patient Mode of arrival: ambulatory Limitations: no limitations History of Present Illness HPI narrative: Patient is a 42 year old male with a significant past medical history of panic disorder, alcohol use disorder, and OCD presenting today with a chief complaint of dizziness. He reports that he woke up this morning feeling awful, shaky and dizzy . Patient states he has been drinking habitually; he drinks 8-10 bottles of beer daily and smokes half a pack of cigarettes a day. His last drink was yesterday (11/06/22). He expresses concern about his health and would like to get some help as well as an ultrasound of his liver to analyze his disease progression. Patient admits to headaches and non-radiating abdominal pain though denies fever/chills, vision changes, restlessness, nausea, vomiting or diarrhea. He reports no other acute concerns at this time. Onset (ago): hour(s) (this morning) Location: abdomen Radiation: non-radiation and abdomen Severity: mild Severity scale (1-10): 2 Pain Consistency: constant Relieving factors: none Exacerbating factors: none Associated symptoms: headaches Treatments prior to arrival: none Related Data Home Medications Medication Instructions Recorded Confirmed clonazepam 1 mg tablet 1 mg PO BID 10/27/22 10/27/22 clonidine HCl 0.1 mg tablet 0.05 mg PO BID 10/27/22 10/27/22 olanzapine 10 mg tablet 10 mg PO BEDTIME 10/27/22 10/27/22 propranolol 10 mg tablet 10 mg PO BID 10/27/22 10/27/22 Previous Rx's Medication Instructions Recorded fluoxetine 40 mg capsule 80 mg PO DAILY #60 caps 08/02/22 nicotine (polacrilex) 2 mg gum 4 mg buccal Q2H PRN Nicotine 08/02/22 Cravings #100 ea lamotrigine 100 mg tablet 100 mg PO BID 14 days #28 tabs 11/03/22 Allergies Allergy/AdvReac Type Severity Reaction Status Date / Time mirtazapine [MIRTAZAPINE] Allergy Intermediate UNKNOWN Verified 11/07/22 07:12 sulfamethoxazole Allergy Unknown RASH Verified 11/07/22 07:12 [From BACTRIM] trimethoprim [From BACTRIM] Allergy Unknown RASH Verified 11/07/22 07:12 Review of Systems Constitutional: Constitutional: Reports no additional constitutional complaints, Denies chills, Denies fever(s) and Denies night sweats Eyes: Eyes: Reports no additional eye complaints and Denies change in vision ENT: Reports dizziness Cardiovascular: Cardiovascular: Denies chest pain, Reports lightheadedness and Denies dyspnea Respiratory: Respiratory: Reports no additional respiratory complaints and Denies dyspnea Gastrointestinal: Gastrointestinal: Reports no additional gastrointestinal complaints, Reports abdominal pain, Denies nausea and Denies vomiting Genitourinary: Genitourinary: Reports no additional male genitourinary complaints, Denies hematuria, Denies oliguria, Denies difficulty urinating, Denies dysuria, Denies urinary frequency, Denies urinary hesitancy, Denies urinary incontinence and Denies urinary urgency Musculoskeletal: Musculoskeletal: Reports no additional musculoskeletal complaints, Denies numbness and Denies tingling Neurologic: Reports dizziness, Denies numbness and Denies tingling Psychiatric: Psychiatric: Reports no additional psychiatric complaints Endocrine: Endocrine: Reports no additional endocrine complaints Hematologic/Lymphatic: Hematologic/Lymphatic: Reports no additional hematologic/lymphatic complaints Allergic/Immunologic: Allergic/Immunologic: Reports no additional allergic/immunologic complaints [facility] Past Medical History Attestation statement: The following information was validated with the patient. Source: nursing notes reviewed Medical History Alcohol use disorder, mild, in controlled environment, abuse HTN (hypertension) Tachycardia Transaminitis Social History Social History Household Members: None Housing: Apartment Do you presently have visiting nurse or other home services: No Alcohol intake: current Alcohol intake frequency: 3 or more drinks per day Alcohol type: beer and hard liquor Patient Tobacco Use Status: Current everyday Tobacco user Tobacco use type: Cigarette Cigarette Packs Per Day: 1 Cigarettes Per Day: 20.0 Years Smoked: 14 Smoked in Last 30 Days: Yes e-Cigarette/Vaping Use: Currently Using Second Hand Smoke Exposure: No Use of substances other than those prescribed or required for medical reasons: No Advance Directives: No Advance Directives Information Provided: Yes service: No Sexual orientation: Straight/Heterosexual Physical Exam ED Vital Signs: Vital Signs - 24 hr 11/07/22 07:13 11/07/22 08:05 11/07/22 10:18 Temperature 98 F Pulse Rate 73 84 74 Respiratory Rate 18 12 16 Blood Pressure 156/94 H 152/95 H 134/80 Pulse Oximetry 97 97 96 Oxygen Delivery Method Room Air Room Air Room Air BMI result Body Mass Index 32.5 Const General: cooperative, no acute distress, alert and awake Nutritional Appearance: well nourished Orientation/consciousness: patient oriented x3 Limitations: no limitations HENMT Head: Yes normal to inspection and Yes atraumatic Ears: hearing grossly normal bilaterally and external ears normal General nose exam: Normal external nose present, no nasal discharge noted and no epistaxis Face and sinus: Yes normal facial exam, No abrasion and No laceration Mouth: Normal oral and palatal mucosa present, no drooling and no muffled voice Eyes General: appearance normal, both eyes and all related structures Periorbital: periorbital findings normal Eyelids: Yes eyelids normal Conjunctivae: conjunctivae normal Pupils: Equal, round and reactive pupils present EOM: EOMs intact bilaterally Neck Neck: Yes normal visual inspection and Yes full ROM Chest Chest palpation & inspection: normal inspection of the chest Resp Effort & Inspection: normal respiratory effort and able to speak in complete sentences Auscultation: clear to auscultation bilaterally Cardio Rate: regular rate Rhythm: regular rhythm Heart sounds: S1 normal heart sound present and S2 normal heart sound present GI Inspection: Yes normal to inspection Palpation (GI): Soft to palpation, not firm, nontender, no guarding and not rigid Neuro General: patient oriented x3 and moves all extremities Cranial nerves: Yes Equal, round and reactive pupils present Cognition (Neuro): normal cognition Motor exam (neuro): 5/5 motor strength present throughout Sensory Exam: Normal double simultaneous stimulation for sensation Coordination: [id number] test normal Extrem General: Yes normal to inspection, Yes full ROM and Yes capillary refill normal Psych Appearance: grossly normal Mental Status: mental status grossly normal Affect: normal affect Attitude: cooperative Thought process: Normal thought process present Thought content: Normal thought content present Insight: Good insight present (Psych) Medications Administered Discontinued Medications Generic Name Dose Route Start Last Admin Trade Name Freq PRN Reason Stop Dose Admin Sodium Chloride 1,000 mls @ 999 mls/hr 11/07/22 07:45 11/07/22 09:05 Ns IV 11/07/22 08:45 Infused .Q1H1M MARTINEZ Infusion Lorazepam 2 mg 11/07/22 07:36 11/07/22 08:05 Lorazepam 2 Mg/Ml Vial IVPUSH 11/07/22 07:37 2 mg ONCE ONE Administration Ondansetron HCl 4 mg 11/07/22 07:36 11/07/22 08:05 Ondansetron Hcl 4 Mg/2 Ml Vial IVPUSH 11/07/22 07:37 4 mg ONCE ONE Administration Medical Decision Making Medical Decision Making [facility] Narrative: Patient is a 42 year old assigned male at with a history of alcohol abuse presenting to the emergency department today with abdominal pain, dizziness, and alcohol use. Patient's physical exam was unremarkable. Patient's blood work was unremarkable. Patient's EKG was unremarkable. Patient's RUQ US showed mild hepatomegaly. Patient spoke with the recovery team who agreed that the patient is appropriate for discharge as he has thorough outpatient follow up / resources. I explained my physical exam findings as well as all test results to the patient. I answered all questions asked by the patient. I stressed the importance of the patient taking his medication as prescribed. I stressed the importance of the patient following up with his primary care provider and a GI specialist. I stressed the importance of the patient returning to the emergency department immediately if his symptoms were to worsen or if he were to develop any dizziness, shortness of breath, difficulty breathing, chest pain, blurry vision, loss of vision, nausea, vomiting, abdominal pain, fever, chills, back pain, or any other complaints. Patient verbalized agreement and understanding with this treatment plan and discharge. Differential Diagnosis Differential Diagnoses: The differential diagnosis associated with the presentation includes anxiety, alcohol abuse Admission/Observation Consideration of admission/observation: Escalation of care including admission/observation considered Patient would have been admitted to the hospital had his work up had any findings where hospital admission was appropriate. Consult Healthcare Provider Management of the patient was discussed with: Behavioral Health Provider (spoke with recovery team as noted in the MDM portion of this chart. ) Lab Data [facility] Lab Attestation statement: I reviewed the patient's lab results. My interpretation of these studies and their corresponding values is that they are grossly normal. 11/07/22 07:56 11/07/22 07:56 Labs: Lab Results 11/07/22 11/07/22 11/07/22 Range/Units 07:56 07:56 09:04 WBC 6.3 (4.8-10.8) X10*3/uL RBC 4.93 (4.60-5.80) X10*6/uL Hgb 14.7 (14.0-18.0) g/dl Hct 43.7 (42.0-52.0) % MCV 88.6 (80.0-98.0) fL MCH 29.8 (27.0-33.0) pg MCHC 33.6 (31.0-36.0) g/dl RDW 14.2 (11.0-16.0) % Plt Count 194 (160-400) X10*3/uL MPV 9.0 L (9.4-12.4) fL Immature Gran % (Auto) 0.3 (0.0-0.4) % Neut % (Auto) 67.2 (45-73) % Lymph % (Auto) 20.6 (20-40) % [place] % (Auto) 8.4 (2-11) % Eos % (Auto) 2.7 (0-4) % Baso % (Auto) 0.8 (0-2) % Lymph # (Auto) 1.3 (1.2-4.9) X10*3/uL [place] # (Auto) 0.5 (0.1-1.2) X10*3/uL Eos # (Auto) 0.2 (0.0-0.4) X10*3/uL Baso # (Auto) 0.1 (0.0-0.2) X10*3/uL Abs Immat Gran (auto) 0.02 (0.00-0.03) X10*3/uL Absolute Neuts (auto) 4.2 (2.0-8.3) x10*3/uL Absolute Nucleated RBC 0.000 (0.0-0.012) X10*3/uL Nucleated RBC % (auto) 0.0 (0.0-0.2) /100WBC Sodium 144 (135-145) mmol/L Potassium 4.2 (3.3-5.1) mmol/L Chloride 106 (96-108) mmol/L Carbon Dioxide 26 (22-29) mmol/L Anion Gap 16 (12-20) BUN 11 (9-16) mg/dL Creatinine 1.08 (0.5-1.4) mg/dL Estim Creat Clear Calc 114.7 Estimated GFR > 60 Random Glucose 121 H (60-115) mg/dL Calcium 9.3 (8.4-10.2) mg/dL Magnesium 1.8 (1.6-2.6) mg/dL Total Bilirubin 0.7 (0.0-1.0) mg/dL AST 27 (5-37) U/L ALT 41 H (0-40) U/L Alkaline Phosphatase 99 (39-117) U/L Total Protein 6.7 (6.5-8.0) g/dL Albumin 4.3 (3.5-5.0) g/dL Urine Color Yellow Urine Appearance Clear Urine pH 7.0 (5.0-9.0) Ur Specific [place] 1.025 (1.005-1.025) Urine Protein Negative (Neg-Trace) mg/dL Urine Glucose (UA) Negative (Negative) mg/dL Urine Ketones Trace (Negative) mg/dL Urine Blood Negative (Negative) Urine Nitrite Negative (Negative) Ur Leukocyte Esterase Negative (Negative) Ethyl Alcohol < 10 mg/dL Independent Interpretation I performed an independent interpretation of an: EKG and Ultrasound Interpretation: Vent. Rate : 077 BPM ? ? Atrial Rate: 077 BPM P-R Int: 172 ms? QRS Dur: 098 ms QT Int: 410 ms ? ? ? P-R-T Axes: 077 -28 031 degrees QTc Int: 463 ms ? Normal sinus rhythm T wave abnormality, consider anterior ischemia Abnormal ECG When compared with ECG of 27-OCT-2022 18:03, No significant change was found ? Electronically Signed By:DAVID DE LEÓN MD Dictated By: David De León MD Signed By: Electronically signed by David De León MD 11/07/22 1134 My interpretation is in agreement with the radiologist's impression of this imaging study. EXAMINATION: US ABDOMEN LIMITED CLINICAL INFORMATION: Right upper quadrant pain.. COMPARISON: CT abdomen and pelvis noncontrast 05/30/2022. TECHNIQUE: Real-time imaging of the right upper quadrant abdominal viscera, liver and gallbladder. FINDINGS: LIVER: There is hepatomegaly with liver measuring 20 cm in length and mild increased hepatic parenchymal echogenicity consistent with hepatic steatosis as noted on the CT study. The liver surface is smooth. The parenchyma is homogeneous. There is no hepatic parenchymal lesion or intrahepatic biliary ductal dilatation. Doppler shows portal flow towards the liver. GALLBLADDER: Normal. The gallbladder is physiologically distended without evidence of stones, sludge, polyps, wall thickening or pericholecystic fluid. Patient is noted to be tender in the gallbladder area with transducer compression. COMMON BILE DUCT: Normal in caliber measuring 0.3 cm in diameter. No choledocholithiasis. FREE FLUID: None. US/US abdomen limited IMPRESSION: - No cholelithiasis, gallbladder wall thickening, or ductal dilatation. - Mild hepatomegaly secondary to hepatic steatosis. Dictated By: Haroon Miranda MD Signed By: Electronically signed by Haroon Miranda MD 11/07/22 0919 Chronic Conditions Patient?s care impacted by: Other (alcohol abuse) Discharge Plan Discharge Clinical Impression: Alcohol abuse Patient Disposition: Home, Self-Care Instructions: Abuse of Alcohol (DC) Additional Instructions: Follow up with your primary care provider. Return to the emergency department immediately if your symptoms worsen or if you develop any dizziness, shortness of breath, difficulty breathing, chest pain, blurry vision, loss of vision, nausea, vomiting, abdominal pain, fever, chills, back pain, or any other complaints. Prescriptions: No Action nicotine (polacrilex) 2 mg Gum 4 mg buccal Q2H PRN (Reason: Nicotine Cravings) Qty: 100 0RF fluoxetine 40 mg capsule 80 mg PO DAILY Qty: 60 0RF clonazepam 1 mg tablet 1 mg PO BID olanzapine 10 mg tablet 10 mg PO BEDTIME propranolol 10 mg tablet 10 mg PO BID clonidine HCl 0.1 mg tablet 0.05 mg PO BID lamotrigine 100 mg Tablet 100 mg PO BID 14 Days Qty: 28 0RF Referrals: [facility] [Provider Group] (Call to establish and follow up with a GI specialist. ) Quan Baker MD [Primary Care Provider] - Interventions: ED Discharge Assessment Last Done: 11/07/22 11:13 Discharge Date/Time: 11/07/22 11:14 Print Language: Mozambican
[2022-11-07 08:00] LABS: MANUAL DIFF FLAG NO
[2022-11-07 08:02] LABS: Basophils Absolute Auto 0.1 X10*3/uL (0.0-0.2); Basophils Percent Auto 0.8 % (0-2); Eosinophils Absolute Auto 0.2 X10*3/uL (0.0-0.4); Eosinophils Percent Auto 2.7 % (0-4); Hematocrit 43.7 % (42.0-52.0); Hemoglobin 14.7 g/dl (14.0-18.0); Imm Gran Abs Auto 0.02 X10*3/uL (0.00-0.03); Imm Gran Pct Auto 0.3 % (0.0-0.4); Lymphocytes Absolute Auto 1.3 X10*3/uL (1.2-4.9); Lymphocytes Percent Auto 20.6 % (20-40); Mean Corpuscular HGB Conc 33.6 g/dl (31.0-36.0); Mean Corpuscular Hemoglobin 29.8 pg (27.0-33.0); Mean Corpuscular Volume 88.6 fL (80.0-98.0); Monocytes Absolute Auto 0.5 X10*3/uL (0.1-1.2); Monocytes Percent Auto 8.4 % (2-11); Neutrophils Absolute Auto 4.2 x10*3/uL (2.0-8.3); Neutrophils Percent Auto 67.2 % (45-73); Platelet Count 194 X10*3/uL (160-400); Red Blood Count 4.93 X10*6/uL (4.60-5.80); Red Cell Distribution Width 14.2 % (11.0-16.0); White Blood Count 6.3 X10*3/uL (4.8-10.8)
[2022-11-07] MEDS: 0.9 % Sodium Chloride 1,000 ML 999 ML IV (08:04)
[2022-11-07 08:05] VITALS: BP 152/95; PULSE 84; RESP 12; O2SAT 97
[2022-11-07] MEDS: LORazepam 2 MG/ML VIAL IVPUSH (08:05)
[2022-11-07] MEDS: ondansetron HCL 4 MG/2 ML VIAL IVPUSH (08:05)
--- NOTE | 2022-11-07 08:16 | PC.NURSE ---
patient a&ox3, ciwa performed- 3 provider notified, pt c/o abd pressure-denies actual pain, pt also stating he is having anxiety, iv inserted, labs drawn, pt medicated per order, ekg performed, potline monitor applied- nsr on monitor, vss, call abad within reach, will continue to monitor.
[2022-11-07 08:22] LABS: Alanine Aminotransferase 41 U/L (0-40); Albumin Level 4.3 g/dL (3.5-5.0); Alkaline Phosphatase 99 U/L (39-117); Anion Gap 16 (12-20); Aspartate Amino Transferase 27 U/L (5-37); Bilirubin Total 0.7 mg/dL (0.0-1.0); Blood Urea Nitrogen 11 mg/dL (9-16); Calcium 9.3 mg/dL (8.4-10.2); Carbon Dioxide 26 mmol/L (22-29); Chloride 106 mmol/L (96-108); Creatinine Clr Calc Pharmacy 114.7; Estimated Glomerular Filt Rate > 60; Ethanol < 10 mg/dL; Glucose Random 121 mg/dL (60-115); Magnesium 1.8 mg/dL (1.6-2.6); Potassium 4.2 mmol/L (3.3-5.1); Sodium 144 mmol/L (135-145); Total Protein 6.7 g/dL (6.5-8.0)
[2022-11-07 09:19] LABS: Appearance Urine Clear; Color Urine Yellow; Glucose Urine UA Negative (Negative); Leukocyte Esterase Urine Negative (Negative); Nitrite Urine Negative (Negative); Specific Gravity - Urine 1.025 (1.005-1.025); Urine Blood Negative (Negative); Urine Ketones Trace mg/dL (Negative); Urine Protein Negative (Neg-Trace)
[2022-11-07 10:18] VITALS: BP 134/80; PULSE 74; RESP 16; O2SAT 96
--- NOTE | 2022-11-07 11:25 | MHC.RECOVSUP ---
Met with pt in ED15 who is here for AUD. Pt informs he was sober for about 6 months before drinking for the past month about 4 beers and 4 nips a day. Pt shares he plans to start going to AA with his sister who has been in recovery and will be utilizing [employer] for [place] and recovery coaches. Pt has no interest in ATS at this time and is set to dc with no questions or concerns at this time.
== END 2022-11-07 11:14 | disposition home or self-care (01) ==
PROVIDERS: Physician Assistant Medical; Emergency Provider Emergency Medicine; PCP Internal Medicine
DX: F10.10 Alcohol abuse, uncomplicated (principal); Y90.0 Blood alcohol level of less than 20 mg/100 ml; R42 Dizziness and giddiness; I10 Essential (primary) hypertension; Z79.899 Other long term (current) drug therapy
CPT/HCPCS: 36415; 76705; 80053; 80307; 81003; 83735; 85025; 93005; 96361; 96374; 96375; 99284; 99285; J2060; J2405

== ENCOUNTER 2022-11-10 10:00 | Outpatient (RCR) | payer MEDICARE, MEDICAID, SELFPAY ==
--- NOTE | 2022-11-10 10:15 | HO.PHP ---
Tahir unfortunately did not arrive to program for his first scheduled day. [facility] staff member reached out to Tahir at 9:30 AM. Tahir did not answer and a voicemail was left encouraging him to contact the program to explore if he will be continuing with the program and if he is safe. [facility] staff noted if she does not hear from him in a 15 minute time frame she will reach out to the emergency contact. Tahir did not return the phone call in the 15 minute time frame. [facility] staff then contacted his emergency contact, his sister, to explore if Tahir was safe and if she had spoken to him today due to him not showing for program. Tahri's sister disclosed that she had spoke to him and he was disappointed he wasn't able to make it today due to having GI issues. Tahir's sister talked about possible substance use and noted that her brother informed her that he left a message for us about not attending today. [facility] staff disclosed we did not receive a phone call at this time. Tahir's sister mentioned that she will have him reach out. Tahir reached out shortly after, in which he noted calling the program this morning to express that he is not able to attend today due to being sick. [facility] staff member voiced that we unfortunately did not receive that call and asked for the number he contacted. [facility] staff informed him that number was incorrect and provided him with the right information. Tahir was receptive and stated that he really wanted to come today and he will be here tomorrow. [facility] staff member was receptive.
--- NOTE | 2022-11-11 09:48 | PC.NURSE ---
Tahir did not show up to program this morning. [facility] staff Cyndi spoke to his sister who is his emergency contact who stated Tahir went to [facility] ER last night. He is actively drinking and they are exploring detox for him. Tahir will be discharged from [facility].
== END 2022-11-10 23:59 | disposition home or self-care (01) ==
LOC: HO.PHPA 10:00
PROVIDERS: Visit Provider Psychiatry & Neurology Psychiatry
DX: F31.4 Bipolar disorder, current episode depressed, severe, without psychotic features (principal); F42.9 Obsessive-compulsive disorder, unspecified; F10.21 Alcohol dependence, in remission
CPT/HCPCS: 90791

== ENCOUNTER 2023-01-03 11:17 | Outpatient (RCR) | payer MEDICARE, MEDICAID, SELFPAY | END 2023-01-03 23:59 | disposition home or self-care (01) | LOC: HO.PHPA 11:17 | PROVIDERS: Visit Provider Psychiatry & Neurology Psychiatry | DX: F32.9 Major depressive disorder, single episode, unspecified (principal) ==

== ENCOUNTER 2023-01-22 06:17 | Emergency (ER) | payer MEDICARE, MEDICAID, SELFPAY ==
--- NOTE | ~2023-01-22 | CT_ITS ---
EXAMINATION: CT abdomen pelvis wo IV con CLINICAL INFORMATION: Reason for Exam inability to void ? obstructing stone COMPARISON: Prior CT May 2022 TECHNIQUE: Multidetector volumetric imaging was performed from the superior aspect of the liver through the pubic symphysis , noncontrasted study Sagittal and coronal reformatted images were obtained on the technologist's workstation. This CT examination was performed using dose optimization techniques as appropriate, variously including the following: *Automated exposure control *Adjustment of mA and/or kV according to patient size (this includes techniques or standardized protocols for targeted exams where dose is matched to indication/reason for exam; i.e. extremities or head) *Use of iterative reconstruction technique DLP: 835 mGy-cm FINDINGS: LOWER THORAX: Included lung bases are clear. HEPATOBILIARY: No focal hepatic lesions. No biliary ductal dilatation. GALLBLADDER: Gallbladder unremarkable. SPLEEN: Spleen borderline enlarged 12.5 cm. PANCREAS: No focal mass or ductal dilatation. STOMACH AND GASTROINTESTINAL TRACT: Stomach is grossly unremarkable. There is no bowel distention or thickening. No CT evidence of appendicitis. ADRENALS: No adrenal nodules. KIDNEYS/URETERS: No hydronephrosis, stones or solid mass lesions. URINARY BLADDER: Partially decompressed. PELVIC VISCERA: Unremarkable PERITONEUM: No free air or fluid. LYMPH NODES: No lymphadenopathy. VASCULAR:Abdominal aorta normal in size, no aneurysm found. BONES, ABDOMINAL WALL AND SOFT TISSUES: Soft tissue opacity embedded within the subcutaneous fat along the left gluteal region roughly 4 x 3 cm potentially could be hematoma from injection versus soft tissue lesion. Similar structure found along the right tibial region 2.7 x 1.9 cm also could be related to injection. CT/CT abdomen pelvis wo IV con IMPRESSION: - No CT evidence of kidney stones or hydronephrosis. - No CT evidence of bowel obstruction. No free air or fluid. No adenopathy. - Spleen borderline enlarged 12.5 cm. -Newly developed Soft tissue opacities measuring up to 4 cm and 2.7 cm embedded within the subcutaneous fat along the left and right gluteal region, nonspecific, could be related to injection sites hematoma versus soft tissue lesions versus seroma and/or abscess in the right clinical setting. Allred image. Please correlate with the clinical exam and patient's history, may consider correlation with follow-up ultrasound..
[2023-01-22 06:18] VITALS: BP 145/86; PULSE 61; RESP 18; TEMP 36.8; O2SAT 98; BMI 33.1
[2023-01-22 06:35] VITALS: BP 135/80; PULSE 67; RESP 17; TEMP 36.6; O2SAT 96
--- NOTE | 2023-01-22 07:02 | ED_ITS ---
HPI - General Adult General Chief complaint: General Medical Stated complaint: general medical/multiple complaints Time Seen by Provider: 01/22/23 06:38 Source: patient Mode of arrival: ambulatory Limitations: no limitations History of Present Illness HPI narrative: 42-year-old male past medical history significant for alcohol use disorder, OCD, bipolar disorder, panic disorder, presenting to the emergency department for evaluation right-sided ear pain for the past few days, currently being treated with Augmentin, started antibiotics on 01/17/2023, he reports he has been taking them as prescribed and he feels as though it is not working he tells me he feels like his ears clogged, reports no longer painful disc clogged. Patient also complaining of decreased urination for the past 3 days, he tells me he is still peeing however not as much as usual. Patient reports he was recently released from detox, and his last drink was on Monday. Patient denies chest pain, shortness of breath, nausea, vomiting, headache, vision changes, dizziness, weakness, chest pain, shortness of breath and palpitations. Related Data Home Medications Medication Instructions Recorded Confirmed clonazepam 1 mg tablet 1 mg PO BID 10/27/22 10/27/22 clonidine HCl 0.1 mg tablet 0.05 mg PO BID 10/27/22 10/27/22 olanzapine 10 mg tablet 10 mg PO BEDTIME 10/27/22 10/27/22 propranolol 10 mg tablet 10 mg PO BID 10/27/22 10/27/22 Previous Rx's Medication Instructions Recorded fluoxetine 40 mg capsule 80 mg PO DAILY #60 caps 08/02/22 nicotine (polacrilex) 2 mg gum 4 mg buccal Q2H PRN Nicotine 08/02/22 Cravings #100 ea lamotrigine 100 mg tablet 100 mg PO BID 14 days #28 tabs 11/03/22 ciprofloxacin 0.3 %-dexamethasone 4 drp otic (ears) BID 7 days #7.5 01/22/23 0.1 % ear drops,suspension mL (Ciprodex) Allergies Allergy/AdvReac Type Severity Reaction Status Date / Time mirtazapine [MIRTAZAPINE] Allergy Intermediate UNKNOWN Verified 01/22/23 06:23 sulfamethoxazole Allergy Unknown RASH Verified 01/22/23 06:23 [From BACTRIM] trimethoprim [From BACTRIM] Allergy Unknown RASH Verified 01/22/23 06:23 Review of Systems Review of Systems: Constitutional : No Weight loss, No Fever, No Chills, No Fatigue, No Malaise ENT/Mouth : No sore throat, No Rhinorrhea, + ear ache Eyes: No Eye Pain, No Swelling, No Redness Cardiovascular : No Chest Pain, No SOB, No Dyspnea on Exertion, No Orthopnea, No Edema, No Palpitations Respiratory : No Cough, No Sputum, No Wheezing Gastrointestinal : No Nausea, No Vomiting, No Diarrhea, No Constipation, No abdominal Pain, No Hematochezia, No Melena Genitourinary : No Dysuria, No Urinary Frequency, No Hematuria, Musculoskeletal : No joint pain, No Myalgias, No Joint Swelling Skin : No Skin Lesions, No rash Neuro : No Weakness, No Numbness, No Dizziness, No Headache Psych : No Anxiety/Panic, No Depression All other systems reviewed and are negative Yes all other systems are reviewed and are negative PMFSH Past Medical History Attestation statement: The following information was validated with the patient. Source: old records reviewed and nursing notes reviewed Medical History Alcohol use disorder, mild, in controlled environment, abuse HTN (hypertension) Tachycardia Transaminitis Social History Social History Household Members: None Housing: Apartment Do you presently have visiting nurse or other home services: No Alcohol intake: former Patient Tobacco Use Status: Current everyday Tobacco user Tobacco use type: Cigarette Cigarette Packs Per Day: 1 Cigarettes Per Day: 20.0 Years Smoked: 14 Smoked in Last 30 Days: No e-Cigarette/Vaping Use: Currently Using Second Hand Smoke Exposure: No Use of substances other than those prescribed or required for medical reasons: No Advance Directives: No Advance Directives Information Provided: Yes service: No Sexual orientation: Straight/Heterosexual Physical Exam ED Vital Signs: Vital Signs - 24 hr 01/22/23 06:18 01/22/23 06:35 01/22/23 08:52 Temperature 98.3 F 97.9 F 97.9 F Pulse Rate 61 67 57 Respiratory Rate 18 17 16 Blood Pressure 145/86 H 135/80 130/83 Pulse Oximetry 98 96 98 Oxygen Delivery Method Room Air Room Air Room Air BMI result Body Mass Index 33.1 vss Appearance: Alert.? Oriented X3.? No acute distress.? Head: Normocephalic, atraumatic, no step-offs or deformities Eyes: Pupils equal, round and reactive to light.? ENT: Pharynx normal.??External ears normal, TMs normal bilaterally & EC normal ( after irrigation). No pain with manipulation of external ears bilaterally. No mastoid tenderness. Neck: Normal inspection.? Neck supple.? CVS: Normal heart rate and rhythm.? Pulses normal.? Respiratory: No respiratory distress.? Breath sounds normal.? Abdomen: Soft and nontender.? Skin: Skin warm and dry.? Normal skin color.? Normal skin turgor.? Extremities: No lower extremity edema.? No calf ttp. 5/5 strength to bilateral upper and lower extremities Back: No midline tenderness, no C-spine tenderness, full range of motion, no CVA tenderness bilaterally Neuro: Oriented X 3.? No motor deficit.? No sensory deficit. CN 2-12 intact Course Reevaluation(s) Reevaluation #1: CBC appears to be within normal limits. Chemistry unremarkable. Lipase normal. UA without infection. CT abdomen and pelvis pending. Patient also having harder stools than usual gave Colace, normoactive bowel sounds I do not suspect that patient has obstruction or acute abdomen, abdomen nontender. No need for imaging. Colace given. Ear irrigation was done, minimal amount of debris from right ear. Will do send him home on Ciprodex to cover for possible fungal infection although I have very low suspicion.. Time: 09:19 Reevaluation #2: CT abdomen and pelvis no evidence of stones or hydronephrosis. No bowel obstruction, free air adenopathy. Spleen borderline enlarged. Soft tissue opacities in the subcutaneous fat along the left and right gluteal region patient was receiving withdrawal injections a suspect this is secondary to this. I will have him follow-up with PCP and urology. Educated patient on diagnosis and treatment plan, answered all question, patient verbalizes understanding. At this time patient will be discharged home, advised to return with new or worsening symptoms. Educated on worrisome signs and symptoms and when to return. At this time I feel comfortable discharge home. Time: 09:54 Medications Administered Discontinued Medications Generic Name Dose Route Start Last Admin Trade Name Freq PRN Reason Stop Dose Admin Docusate Sodium 100 mg 01/22/23 07:04 01/22/23 07:13 Docusate Sodium 100 Mg/10 Ml Liquid PO 01/22/23 07:05 100 mg ONCE ONE Administration Medical Decision Making Medical Decision Making [facility] Narrative: 0705 42-year-old male presents with right-sided ear discomfort, decreased urinary stream for the past few days. Physical exam was significant for debris noted in the right ear canal with cerumen. No pain with manipulation of external ear. No mastoid tenderness. Regular rate and rhythm. Lungs clear. Abdomen soft nontender nondistended. This is likely cerumen impaction/debris in the ear canal that is causing patient to have muffled hearing on the right. No signs of otitis media, otitis externa, malignant otitis, mastoiditis. Decreased urinary stream could be secondary to BPH, obstructing uropathy. Unlikely UTI, STD patient reports he is not sexually active and has not had for 5 years. Will rule out metabolic derangements. Other differentials include cystitis. Unlikely pyelo. No signs of acute abdomen. Plan at this time labs, bladder scan, ear irrigation. Differential Diagnosis Differential Diagnoses: The differential diagnosis associated with the presentation includes This is likely cerumen impaction/debris in the ear canal that is causing patient to have muffled hearing on the right. No signs of otitis media, otitis externa, malignant otitis, mastoiditis. Decreased urinary stream could be secondary to BPH, obstructing uropathy. Unlikely UTI, STD patient reports he is not sexually active and has not had for 5 years. Will rule out metabolic derangements. Other differentials include cystitis. Unlikely pyelo. No signs of acute abdomen. Admission/Observation Consideration of admission/observation: Escalation of care including admission/observation considered unlikely Lab Data [facility] Lab Attestation statement: I reviewed the patient's lab results. 01/22/23 07:50 01/22/23 07:50 Labs: Lab Results 01/22/23 01/22/23 01/22/23 Range/Units 07:50 07:50 07:50 WBC 5.6 (4.8-10.8) X10*3/uL RBC 4.67 (4.60-5.80) X10*6/uL Hgb 14.0 (14.0-18.0) g/dl Hct 41.3 L (42.0-52.0) % MCV 88.4 (80.0-98.0) fL MCH 30.0 (27.0-33.0) pg MCHC 33.9 (31.0-36.0) g/dl RDW 12.4 (11.0-16.0) % Plt Count 198 (160-400) X10*3/uL MPV 9.3 L (9.4-12.4) fL Immature Gran % (Auto) 0.2 (0.0-0.4) % Neut % (Auto) 60.5 (45-73) % Lymph % (Auto) 24.5 (20-40) % [place] % (Auto) 7.1 (2-11) % Eos % (Auto) 6.6 H (0-4) % Baso % (Auto) 1.1 (0-2) % Lymph # (Auto) 1.4 (1.2-4.9) X10*3/uL [place] # (Auto) 0.4 (0.1-1.2) X10*3/uL Eos # (Auto) 0.4 (0.0-0.4) X10*3/uL Baso # (Auto) 0.1 (0.0-0.2) X10*3/uL Abs Immat Gran (auto) 0.01 (0.00-0.03) X10*3/uL Absolute Neuts (auto) 3.4 (2.0-8.3) x10*3/uL Absolute Nucleated RBC 0.000 (0.0-0.012) X10*3/uL Nucleated RBC % (auto) 0.0 (0.0-0.2) /100WBC Sodium 141 (135-145) mmol/L Potassium 4.1 (3.3-5.1) mmol/L Chloride 104 (96-108) mmol/L Carbon Dioxide 29 (22-29) mmol/L Anion Gap 12 (12-20) BUN 13 (9-16) mg/dL Creatinine 1.02 (0.5-1.4) mg/dL Estim Creat Clear Calc 122.4 Estimated GFR > 60 Random Glucose 101 (60-115) mg/dL Calcium 10.0 D (8.4-10.2) mg/dL Magnesium 1.8 (1.6-2.6) mg/dL Total Bilirubin 0.8 (0.0-1.0) mg/dL AST 18 (5-37) U/L ALT 26 (0-40) U/L Alkaline Phosphatase 91 (39-117) U/L Total Protein 6.9 (6.5-8.0) g/dL Albumin 4.3 (3.5-5.0) g/dL Lipase 20 (8-78) U/L Urine Color Yellow Urine Appearance Clear Urine pH 5.5 (5.0-9.0) Ur Specific [place] >= 1.030 H (1.005-1.025) Urine Protein Trace (Neg-Trace) mg/dL Urine Glucose (UA) Negative (Negative) mg/dL Urine Ketones Trace (Negative) mg/dL Urine Blood Negative (Negative) Urine Nitrite Negative (Negative) Ur Leukocyte Esterase Negative (Negative) Urine RBC 0-2 (0-2) /HPF Urine WBC 0-5 (0-5) /HPF Ur Squamous Epith Cells 0-2 (0-2) /HPF Urine Bacteria None Seen (None Seen) Hyaline Casts 0-2 (0-2) /LPF Independent Interpretation I performed an independent interpretation of an: CT Scan ( CT/CT abdomen pelvis wo IV con IMPRESSION: - No CT evidence of kidney stones or hydronephrosis. - No CT evidence of bowel obstruction. No free air or fluid. No adenopathy. - Spleen borderline enlarged 12.5 cm. -Newly developed Soft tissue opacities measuring up to 4 cm and 2.7 cm embedded w) Radiology Impression Discussion of test interpretation with radiology: I have reviewed the radiologist's reading. Core Measures AMI core measures followed: Yes Measure exclusions: not indicated Critical Care Time Critical Care Time Critical Care Time: No Discharge Plan Discharge Clinical Impression: Urinary hesitancy, Ear pain, Constipation Patient Disposition: Home, Self-Care Instructions: Earache (ED), Urinary Urgency and Frequency (DC) Additional Instructions: Take your medications as prescribed. If you were prescribed antibiotics today, it is important that you take your medication to their entirety, do not skip any doses, do not finish them early. Follow-up with your primary care provider this week. Return to the emergency department with new or worsening symptoms. Such as fevers, chills, chest pain, shortness of breath, nausea, vomiting, dizziness, headache, vision changes, lethargy In case of emergency call 911 ?CT/CT abdomen pelvis wo IV con IMPRESSION: ? - No CT evidence of kidney stones or hydronephrosis. ? - No CT evidence of bowel obstruction. No free air or fluid. No adenopathy. ? - Spleen borderline enlarged 12.5 cm. ? -Newly developed Soft tissue opacities measuring up to 4 cm and 2.7 cm embedded within the subcutaneous fat along the left and right gluteal region, nonspecific, could be related to injection sites hematoma versus soft tissue lesions versus seroma and/or abscess in the right clinical setting. Allred image. Prescriptions: New ciprofloxacin-dexamethasone [Ciprodex] 0.3-0.1 % drops,suspension 4 drp otic (ears) BID 7 Days Qty: 7.5 0RF No Action nicotine (polacrilex) 2 mg Gum 4 mg buccal Q2H PRN (Reason: Nicotine Cravings) Qty: 100 0RF fluoxetine 40 mg capsule 80 mg PO DAILY Qty: 60 0RF clonazepam 1 mg tablet 1 mg PO BID olanzapine 10 mg tablet 10 mg PO BEDTIME propranolol 10 mg tablet 10 mg PO BID clonidine HCl 0.1 mg tablet 0.05 mg PO BID lamotrigine 100 mg Tablet 100 mg PO BID 14 Days Qty: 28 0RF Referrals: Physician,Unknown J [Primary Care Provider] - 2 days Stand Alone Forms: Work/School Release Interventions: ED Discharge Assessment Last Done: 01/22/23 09:51
--- NOTE | 2023-01-22 07:09 | PC.NURSE ---
Patient alert and oriented, bladder scanned for 29mls, denies pain or discomfort, reports being treated for ear infection.
[2023-01-22] MEDS: Docusate Sodium 100 MG/10 ML LIQUID PO (07:13)
[2023-01-22 07:56] LABS: MANUAL DIFF FLAG NO
[2023-01-22 08:08] LABS: Appearance Urine Clear; Color Urine Yellow; Glucose Urine UA Negative (Negative); Leukocyte Esterase Urine Negative (Negative); Nitrite Urine Negative (Negative); PH 5.5 (5.0-9.0); Specific Gravity - Urine >= 1.030 (1.005-1.025); Urine Blood Negative (Negative); Urine Ketones Trace mg/dL (Negative); Urine Protein Trace mg/dL (Neg-Trace)
[2023-01-22 08:10] LABS: Bacteria Urine None Seen (None Seen); Hyaline Casts Urine 0-2 /LPF (0-2); RBC Urine 0-2 /HPF (0-2); Squamous Epithelial Cell Urine 0-2 /HPF (0-2); WBC Urine 0-5 /HPF (0-5)
[2023-01-22 08:15] LABS: Basophils Absolute Auto 0.1 X10*3/uL (0.0-0.2); Basophils Percent Auto 1.1 % (0-2); Eosinophils Absolute Auto 0.4 X10*3/uL (0.0-0.4); Eosinophils Percent Auto 6.6 % (0-4); Hematocrit 41.3 % (42.0-52.0); Imm Gran Abs Auto 0.01 X10*3/uL (0.00-0.03); Imm Gran Pct Auto 0.2 % (0.0-0.4); Lymphocytes Absolute Auto 1.4 X10*3/uL (1.2-4.9); Lymphocytes Percent Auto 24.5 % (20-40); Mean Corpuscular HGB Conc 33.9 g/dl (31.0-36.0); Mean Corpuscular Volume 88.4 fL (80.0-98.0); Mean Platelet Volume 9.3 fL (9.4-12.4); Monocytes Absolute Auto 0.4 X10*3/uL (0.1-1.2); Monocytes Percent Auto 7.1 % (2-11); Neutrophils Absolute Auto 3.4 x10*3/uL (2.0-8.3); Neutrophils Percent Auto 60.5 % (45-73); Platelet Count 198 X10*3/uL (160-400); Red Blood Count 4.67 X10*6/uL (4.60-5.80); Red Cell Distribution Width 12.4 % (11.0-16.0); White Blood Count 5.6 X10*3/uL (4.8-10.8)
[2023-01-22 08:24] LABS: Alanine Aminotransferase 26 U/L (0-40); Albumin Level 4.3 g/dL (3.5-5.0); Alkaline Phosphatase 91 U/L (39-117); Anion Gap 12 (12-20); Aspartate Amino Transferase 18 U/L (5-37); Bilirubin Total 0.8 mg/dL (0.0-1.0); Blood Urea Nitrogen 13 mg/dL (9-16); Carbon Dioxide 29 mmol/L (22-29); Chloride 104 mmol/L (96-108); Creatinine Clr Calc Pharmacy 122.4; Estimated Glomerular Filt Rate > 60; Glucose Random 101 mg/dL (60-115); Lipase 20 U/L (8-78); Magnesium 1.8 mg/dL (1.6-2.6); Potassium 4.1 mmol/L (3.3-5.1); Sodium 141 mmol/L (135-145); Total Protein 6.9 g/dL (6.5-8.0)
[2023-01-22 08:52] VITALS: BP 130/83; PULSE 57; RESP 16; TEMP 36.6; O2SAT 98
--- NOTE | 2023-01-22 09:51 | PC.NURSE ---
Discharge plan reviewed with patient who verbalized understanding
== END 2023-01-22 09:58 | disposition home or self-care (01) ==
PROVIDERS: Physician Assistant; Emergency Provider Emergency Medicine
DX: H92.02 Otalgia, left ear (principal); R39.11 Hesitancy of micturition; K59.00 Constipation, unspecified; I10 Essential (primary) hypertension
CPT/HCPCS: 36415; 74176; 80053; 81001; 83690; 83735; 85025; 99284

== ENCOUNTER 2023-01-27 17:07 | Inpatient (IN) | payer MEDICARE, MEDICAID, SELFPAY ==
[2023-01-27 17:16] VITALS: BP 129/84; PULSE 86; RESP 15; TEMP 36.9; O2SAT 95; BMI 33.9
[2023-01-27 17:38] LABS: MANUAL DIFF FLAG NO
[2023-01-27 17:40] LABS: Basophils Absolute Auto 0.1 X10*3/uL (0.0-0.2); Basophils Percent Auto 0.8 % (0-2); Eosinophils Absolute Auto 0.7 X10*3/uL (0.0-0.4); Eosinophils Percent Auto 7.5 % (0-4); Hematocrit 46.5 % (42.0-52.0); Hemoglobin 16.3 g/dl (14.0-18.0); Imm Gran Abs Auto 0.06 X10*3/uL (0.00-0.03); Imm Gran Pct Auto 0.7 % (0.0-0.4); Lymphocytes Absolute Auto 3.1 X10*3/uL (1.2-4.9); Lymphocytes Percent Auto 34.9 % (20-40); Mean Corpuscular HGB Conc 35.1 g/dl (31.0-36.0); Mean Corpuscular Hemoglobin 30.2 pg (27.0-33.0); Mean Corpuscular Volume 86.1 fL (80.0-98.0); Mean Platelet Volume 9.1 fL (9.4-12.4); Monocytes Absolute Auto 0.5 X10*3/uL (0.1-1.2); Monocytes Percent Auto 6.1 % (2-11); Neutrophils Absolute Auto 4.4 x10*3/uL (2.0-8.3); Platelet Count 231 X10*3/uL (160-400); White Blood Count 8.8 X10*3/uL (4.8-10.8)
[2023-01-27 17:49] LABS: Amphetamine Screen Urine Not Detected (Not Detect); Appearance Urine Clear; Barbiturates, Urine Not Detected (Not Detect); Benzodiazepines Screen Urine Not Detected (Not Detect); Cannabinoid Screen Urine Not Detected (Not Detect); Cocaine Screen Urine Not Detected (Not Detect); Color Urine Yellow; Fentanyl, urine Not Detected (Not Detect); Glucose Urine UA Negative (Negative); Leukocyte Esterase Urine Negative (Negative); Nitrite Urine Negative (Negative); Opiate Screen Urine Not Detected (Not Detect); PH 5.5 (5.0-9.0); Phencyclidine Screen Urine Not Detected (Not Detect); Specific Gravity - Urine <= 1.005 (1.005-1.025); Urine Blood Negative (Negative); Urine Ketones Negative (Negative); Urine Protein Negative (Neg-Trace)
[2023-01-27 17:55] LABS: COVID-19 Test Negative (Negative); IDNOW Serial# BCCEAD1C
[2023-01-27 18:08] LABS: Alanine Aminotransferase 23 U/L (0-40); Albumin Level 4.9 g/dL (3.5-5.0); Alkaline Phosphatase 109 U/L (39-117); Anion Gap 19 (12-20); Aspartate Amino Transferase 22 U/L (5-37); Bilirubin Total 0.4 mg/dL (0.0-1.0); Blood Urea Nitrogen 7 mg/dL (9-16); Calcium 9.8 mg/dL (8.4-10.2); Carbon Dioxide 21 mmol/L (22-29); Chloride 106 mmol/L (96-108); Creatinine Clr Calc Pharmacy 146.9; Estimated Glomerular Filt Rate > 60; Ethanol 175 mg/dL; Glucose Random 91 mg/dL (60-115); Potassium 4.2 mmol/L (3.3-5.1); Sodium 142 mmol/L (135-145); Total Protein 8.3 g/dL (6.5-8.0)
[2023-01-27 18:11] LABS: Acetaminophen LAB < 17 mcg/mL (<30); Salicylate < 5.0 mg/dL (15-30)
--- NOTE | 2023-01-27 18:49 | ED.GENADULT ---
HPI - General Adult General Chief complaint: Psychiatric Symptoms Stated complaint: Crisis Time Seen by Provider: 01/27/23 17:29 Source: patient, RN notes reviewed and old records reviewed Mode of arrival: ambulatory Limitations: no limitations History of Present Illness HPI narrative: 42-year-old male presents for evaluation of suicidal ideation. Patient reports that he has been battling depression for most of his life. He reports over last week he has had increasing depression and has been drinking alcohol to cope He reports that he had been sober for about 3 weeks prior to relapsing He reports he is having increasing suicidal thoughts After discussion with his sister she recommended that he come to the ER for further evaluation and management Patient reports that he had 8-10 beers today He has no somatic complaints Related Data Home Medications Medication Instructions Recorded Confirmed clonazepam 1 mg tablet 1 mg PO BID 10/27/22 01/27/23 clonidine HCl 0.1 mg tablet 0.05 mg PO BID 10/27/22 01/27/23 olanzapine 10 mg tablet 10 mg PO BEDTIME 10/27/22 01/27/23 propranolol 10 mg tablet 10 mg PO BID 10/27/22 01/27/23 lamotrigine 200 mg tablet 200 mg PO BID 01/27/23 01/27/23 trazodone 50 mg tablet 50 mg PO BEDTIME 01/27/23 01/27/23 Previous Rx's Medication Instructions Recorded fluoxetine 40 mg capsule 80 mg PO DAILY #60 caps 08/02/22 Allergies Allergy/AdvReac Type Severity Reaction Status Date / Time mirtazapine [MIRTAZAPINE] Allergy Intermediate UNKNOWN Verified 01/27/23 17:42 sulfamethoxazole Allergy Unknown RASH Verified 01/27/23 17:42 [From BACTRIM] trimethoprim [From BACTRIM] Allergy Unknown RASH Verified 01/27/23 17:42 Review of Systems Constitutional: Constitutional: Denies chills and Denies fever(s) Cardiovascular: Cardiovascular: Denies chest pain and Denies dyspnea Respiratory: Respiratory: Denies dyspnea Gastrointestinal: Gastrointestinal: Denies abdominal pain Musculoskeletal: Musculoskeletal: Denies back pain Integumentary/Breasts: Skin/Breast: Denies rash Psychiatric: Psychiatric: Reports depression and Reports suicidal ideation [facility] Past Medical History Medical History Alcohol use disorder, mild, in controlled environment, abuse HTN (hypertension) Tachycardia Transaminitis Social History Social History Household Members: None Housing: Apartment Do you presently have visiting nurse or other home services: No Alcohol intake: current Alcohol intake frequency: 3 or more drinks per day Alcohol type: beer and hard liquor Patient Tobacco Use Status: Current everyday Tobacco user Tobacco use type: Cigarette Cigarette Packs Per Day: 1 Cigarettes Per Day: 20.0 Years Smoked: 14 Smoked in Last 30 Days: Yes e-Cigarette/Vaping Use: Currently Using Second Hand Smoke Exposure: No Use of substances other than those prescribed or required for medical reasons: No Advance Directives: No Advance Directives Information Provided: No Healthcare Proxy: No Guardian: No service: No Sexual orientation: Straight/Heterosexual Physical Exam ED Vital Signs: Vital Signs - 24 hr 01/27/23 17:16 01/28/23 04:24 Temperature 98.5 F 97.9 F Pulse Rate 86 96 Respiratory Rate 15 16 Blood Pressure 129/84 128/89 Pulse Oximetry 95 98 Oxygen Delivery Method Room Air Room Air BMI result Body Mass Index 33.9 Const General: healthy appearing, comfortable, no acute distress, alert and awake Nutritional Appearance: well nourished Orientation/consciousness: patient oriented x3 HENMT Head: Yes normocephalic and Yes atraumatic Eyes Eyelids: Yes eyelids normal Conjunctivae: conjunctivae normal Sclerae: sclerae normal Corneas: corneas normal Pupils: Equal, round and reactive pupils present EOM: EOMs intact bilaterally Neck Neck: Yes full ROM Resp Effort & Inspection: normal respiratory effort, able to speak in complete sentences and not labored Skin General skin exam: no rashes or lesions noted and elasticity normal Neuro General: patient oriented x3 Cranial nerves: Yes Equal, round and reactive pupils present and Yes Bilaterally intact EOM present Cognition (Neuro): normal cognition Extrem Other: Moving all extremities well without any obvious deformities Course Reevaluation(s) Reevaluation #1: Patient is now medically cleared for care team evaluation Time: 18:51 Reevaluation #2: With vital signs stable no events reported by the nurse overnight, patient is under Section 12, bed search is underway, continue with physician observation. Time: 07:54 Medications Administered Generic Name Dose Route Start Last Admin Trade Name Freq PRN Reason Stop Dose Admin Clonazepam 1 mg 01/27/23 21:00 01/27/23 21:13 Clonazepam 1 Mg Tablet PO 1 mg BID MARTINEZ Administration Clonidine HCl 0.05 mg 01/27/23 21:00 01/27/23 21:13 Clonidine Hcl 0.1 Mg Tablet PO 0.05 mg BID MARTINEZ Administration Protocol Lamotrigine 200 mg 01/27/23 21:00 01/27/23 21:14 Lamotrigine 100 Mg Tablet PO 200 mg BID MARTINEZ Administration Olanzapine 10 mg 01/27/23 21:00 01/27/23 21:14 Olanzapine 10 Mg Tablet PO 10 mg BEDTIME MARTINEZ Administration Propranolol HCl 10 mg 01/27/23 21:00 01/27/23 21:14 Propranolol Hcl 10 Mg Tablet PO 10 mg BID MARTINEZ Administration Protocol Trazodone HCl 50 mg 01/27/23 21:00 01/27/23 21:13 Trazodone Hcl 50 Mg Tablet PO 50 mg BEDTIME MARTINEZ Administration Discontinued Medications Generic Name Dose Route Start Last Admin Trade Name Freq PRN Reason Stop Dose Admin Lorazepam 1 mg 01/28/23 04:18 01/28/23 04:27 Lorazepam 1 Mg Tablet PO 01/28/23 04:19 1 mg ONCE ONE Administration Medical Decision Making Medical Decision Making [facility] Narrative: Patient will require medical clearance and a care team evaluation for his depression, suicidal ideation alcohol abuse The care team evaluated the patient: Inpatient Bed search Differential Diagnosis Differential Diagnoses: The differential diagnosis associated with the presentation includes Depression Suicidal ideation Bipolar disorder Alcohol abuse Acute alcohol intoxication Lab Data [facility] Lab Attestation statement: I reviewed the patient's lab results. No leukocytosis or anemia. Normal platelet count. Electrolytes within normal limits. Patient has alcohol level of 175. 01/27/23 17:29 01/27/23 17:29 Labs: Lab Results 01/27/23 01/27/23 01/27/23 Range/Units 17:29 17:29 17:29 WBC 8.8 (4.8-10.8) X10*3/uL RBC 5.40 (4.60-5.80) X10*6/uL Hgb 16.3 (14.0-18.0) g/dl Hct 46.5 (42.0-52.0) % MCV 86.1 (80.0-98.0) fL MCH 30.2 (27.0-33.0) pg MCHC 35.1 (31.0-36.0) g/dl RDW 13.0 (11.0-16.0) % Plt Count 231 (160-400) X10*3/uL MPV 9.1 L (9.4-12.4) fL Immature Gran % (Auto) 0.7 H (0.0-0.4) % Neut % (Auto) 50.0 (45-73) % Lymph % (Auto) 34.9 (20-40) % [place] % (Auto) 6.1 (2-11) % Eos % (Auto) 7.5 H (0-4) % Baso % (Auto) 0.8 (0-2) % Lymph # (Auto) 3.1 (1.2-4.9) X10*3/uL [place] # (Auto) 0.5 (0.1-1.2) X10*3/uL Eos # (Auto) 0.7 H (0.0-0.4) X10*3/uL Baso # (Auto) 0.1 (0.0-0.2) X10*3/uL Abs Immat Gran (auto) 0.06 H (0.00-0.03) X10*3/uL Absolute Neuts (auto) 4.4 (2.0-8.3) x10*3/uL Absolute Nucleated RBC 0.000 (0.0-0.012) X10*3/uL Nucleated RBC % (auto) 0.0 (0.0-0.2) /100WBC Sodium 142 (135-145) mmol/L Potassium 4.2 (3.3-5.1) mmol/L Chloride 106 (96-108) mmol/L Carbon Dioxide 21 L (22-29) mmol/L Anion Gap 19 (12-20) BUN 7 L (9-16) mg/dL Creatinine 0.86 (0.5-1.4) mg/dL Estim Creat Clear Calc 146.9 Estimated GFR > 60 Random Glucose 91 (60-115) mg/dL Calcium 9.8 (8.4-10.2) mg/dL Total Bilirubin 0.4 (0.0-1.0) mg/dL AST 22 (5-37) U/L ALT 23 (0-40) U/L Alkaline Phosphatase 109 (39-117) U/L Total Protein 8.3 H (6.5-8.0) g/dL Albumin 4.9 (3.5-5.0) g/dL Urine Color Urine Appearance Urine pH (5.0-9.0) Ur Specific [place] (1.005-1.025) Urine Protein (Neg-Trace) mg/dL Urine Glucose (UA) (Negative) mg/dL Urine Ketones (Negative) mg/dL Urine Blood (Negative) Urine Nitrite (Negative) Ur Leukocyte Esterase (Negative) Salicylates (15-30) mg/dL Urine Opiates Screen (Not Detect) Urine Fentanyl Screen (Not Detect) Acetaminophen (<30) mcg/mL Ur Barbiturates Screen (Not Detect) Ur Phencyclidine Scrn (Not Detect) Ur Amphetamines Screen (Not Detect) U Benzodiazepines Scrn (Not Detect) Urine Cocaine Screen (Not Detect) U Marijuana (THC) Screen (Not Detect) Ethyl Alcohol 175 mg/dL COVID-19 (COLE) Negative (Negative) COVID-19 Clin Com See Note 01/27/23 01/27/23 01/27/23 Range/Units 17:29 17:31 17:31 WBC (4.8-10.8) X10*3/uL RBC (4.60-5.80) X10*6/uL Hgb (14.0-18.0) g/dl Hct (42.0-52.0) % MCV (80.0-98.0) fL MCH (27.0-33.0) pg MCHC (31.0-36.0) g/dl RDW (11.0-16.0) % Plt Count (160-400) X10*3/uL MPV (9.4-12.4) fL Immature Gran % (Auto) (0.0-0.4) % Neut % (Auto) (45-73) % Lymph % (Auto) (20-40) % [place] % (Auto) (2-11) % Eos % (Auto) (0-4) % Baso % (Auto) (0-2) % Lymph # (Auto) (1.2-4.9) X10*3/uL [place] # (Auto) (0.1-1.2) X10*3/uL Eos # (Auto) (0.0-0.4) X10*3/uL Baso # (Auto) (0.0-0.2) X10*3/uL Abs Immat Gran (auto) (0.00-0.03) X10*3/uL Absolute Neuts (auto) (2.0-8.3) x10*3/uL Absolute Nucleated RBC (0.0-0.012) X10*3/uL Nucleated RBC % (auto) (0.0-0.2) /100WBC Sodium (135-145) mmol/L Potassium (3.3-5.1) mmol/L Chloride (96-108) mmol/L Carbon Dioxide (22-29) mmol/L Anion Gap (12-20) BUN (9-16) mg/dL Creatinine (0.5-1.4) mg/dL Estim Creat Clear Calc Estimated GFR Random Glucose (60-115) mg/dL Calcium (8.4-10.2) mg/dL Total Bilirubin (0.0-1.0) mg/dL AST (5-37) U/L ALT (0-40) U/L Alkaline Phosphatase (39-117) U/L Total Protein (6.5-8.0) g/dL Albumin (3.5-5.0) g/dL Urine Color Yellow Urine Appearance Clear Urine pH 5.5 (5.0-9.0) Ur Specific [place] <= 1.005 (1.005-1.025) Urine Protein Negative (Neg-Trace) mg/dL Urine Glucose (UA) Negative (Negative) mg/dL Urine Ketones Negative (Negative) mg/dL Urine Blood Negative (Negative) Urine Nitrite Negative (Negative) Ur Leukocyte Esterase Negative (Negative) Salicylates < 5.0 L (15-30) mg/dL Urine Opiates Screen Not Detected (Not Detect) Urine Fentanyl Screen Not Detected (Not Detect) Acetaminophen < 17 (<30) mcg/mL Ur Barbiturates Screen Not Detected (Not Detect) Ur Phencyclidine Scrn Not Detected (Not Detect) Ur Amphetamines Screen Not Detected (Not Detect) U Benzodiazepines Scrn Not Detected (Not Detect) Urine Cocaine Screen Not Detected (Not Detect) U Marijuana (THC) Screen Not Detected (Not Detect) Ethyl Alcohol mg/dL COVID-19 (COLE) (Negative) COVID-19 Clin Com Discharge Plan Discharge Clinical Impression: Suicidal ideation, Alcohol abuse Patient Disposition: Still a Patient Prescriptions: No Action fluoxetine 40 mg capsule 80 mg PO DAILY Qty: 60 0RF clonazepam 1 mg tablet 1 mg PO BID olanzapine 10 mg tablet 10 mg PO BEDTIME propranolol 10 mg tablet 10 mg PO BID clonidine HCl 0.1 mg tablet 0.05 mg PO BID trazodone 50 mg tablet 50 mg PO BEDTIME lamotrigine 200 mg Tablet 200 mg PO BID Interventions: [place]-Suicide Risk Severity Scale Last Done: 01/28/23 04:15
--- NOTE | 2023-01-27 20:47 | MHC.CARE ---
Lidia, the pt's sister [phone], called to relay information about the pt. She stated that the pt has been calling her from the POD saying that he is fine now and that he wants to return home. The reason that Lidia brought the pt into [facility] was because he was making suicidal comments to her, i.e. I just want to end it all . Lidia stated that the pt is a heavy drinker and when he drinks he becomes suicidal. Pt's father completed suicide when the pt was 10 yo. The pt's mother one year and a couple of months ago, and Lidia stated that the pt has gotten worse, with his drinking, since her . Lidia stated that the pt drinks 12 nips, or one pint of hard liquor a day. She also stated that the pt has liver damage due to his drinking. Lidia stated that the pt has been IPLOC psychiatrically 6x's this year, the most recent [facility], and he has been to in the past. Lidia stated that the pt went to a detox, stayed two weeks, started drinking again right away, was supposed to go to a PHP program but then stopped it. Lidia stated that she is the only family member that will talk to the pt due to his drinking. Lidia stated that she is worried that the pt will hurt himself while he is drinking. She is advocating for the pt to stay in [facility] and go to a psych floor to have a med eval completed. Lidia stated that the pt has cut before, most recently 6-7 years ago. Lidia stated that the pt has providers with [facility].
[2023-01-27] MEDS: cloNIDine HCL 0.1 MG TABLET 0.05 MG PO (21:13)
[2023-01-27] MEDS: clonazePAM 1 MG TABLET PO (21:13)
[2023-01-27] MEDS: traZODone HCL 50 MG TABLET PO (21:13)
[2023-01-27] MEDS: Propranolol HCL 10 MG TABLET PO (21:14)
[2023-01-27] MEDS: lamoTRIgine 100 MG TABLET 200 MG PO (21:14)
[2023-01-27] MEDS: OLANZapine 10 MG TABLET PO (21:14)
[2023-01-28 04:24] VITALS: BP 128/89; PULSE 96; RESP 16; TEMP 36.6; O2SAT 98
[2023-01-28] MEDS: LORazepam 1 MG TABLET PO (04:27)
--- NOTE | 2023-01-28 05:36 | PC.NURSE ---
Patient slept through the night, no distress observed/reported, behavior non concerning, medication compliant, Ativan 1 mg po administered at 0427 for comfort, VSS, disposition per care team is section 12 inpatient bed search, labs completed/resulted, will continue to monitor.
--- NOTE | 2023-01-28 08:49 | ECG_ITS ---
Test Reason : CHECK QT Blood Pressure : / mmHG Vent. Rate : 065 BPM Atrial Rate : 065 BPM P-R Int : 152 ms QRS Dur : 098 ms QT Int : 418 ms P-R-T Axes : 034 -24 029 degrees QTc Int : 434 ms Poor data quality, interpretation may be adversely affected Normal sinus rhythm ST & T wave abnormality, consider anterior ischemia Abnormal ECG When compared with ECG of 07-NOV-2022 07:48, No significant change was found Referred By: Collins Torres Electronically Signed By:BREE OSBORNE
[2023-01-28 09:39] VITALS: BP 136/93; PULSE 72; RESP 18; TEMP 36.3; O2SAT 97
[2023-01-28] MEDS: lamoTRIgine 100 MG TABLET 200 MG PO ×2 (09:40→19:33)
[2023-01-28] MEDS: clonazePAM 1 MG TABLET PO ×2 (09:40→19:32)
[2023-01-28] MEDS: Propranolol HCL 10 MG TABLET PO ×2 (09:40→19:32)
[2023-01-28] MEDS: FLUoxetine HCl 20 MG CAPSULE 80 MG PO (09:40)
[2023-01-28] MEDS: cloNIDine HCL 0.1 MG TABLET 0.05 MG PO ×2 (09:41→19:32)
[2023-01-28 12:10] VITALS: BP 141/92; PULSE 68; RESP 16; TEMP 37.1; O2SAT 97
[2023-01-28 12:52] VITALS: BMI 33.6
[2023-01-28] MEDS: Thiamine HCL 100 MG TABLET PO (14:01)
[2023-01-28] MEDS: Folic Acid 1 MG TABLET PO (14:01)
--- NOTE | 2023-01-28 14:28 | PC.ADMIT ---
Tahir was admitted to at 1153 from [facility] ED pod on 01/28/23 for the treatment of depression. He reports that he was sober for approximately one month, then relapsed on ETOH yesterday and had 8 drinks. He reports he has been feeling depressed about his situation in life and called his sister and made SI statements, and she encouraged him to go to the hospital. He is alert and oriented x4. He was cooperative with admission process. He reports feeling depressed but states he is hopeful to get help while he is here. He denies current suicidal and homicidal thoughts and intent. He denies auditory and visual hallucinations. He reports no significant issues with appetite or sleep. BAL was 175 on 01/27/23 and utox was negative. He was placed on 15 minute checks for safety.
[2023-01-28 19:30] VITALS: BP 120/67; PULSE 65; TEMP 36.3
[2023-01-28] MEDS: traZODone HCL 50 MG TABLET PO (19:33)
[2023-01-28] MEDS: OLANZapine 10 MG TABLET PO (19:33)
[2023-01-29 08:10] VITALS: BP 138/79; PULSE 62; RESP 18; TEMP 36.4; O2SAT 96
[2023-01-29 08:13] LABS: Cholesterol 220 mg/dL (<200); HDL Cholesterol 40 mg/dL (>40); LDL Cholesterol Calculated 136 mg/dL (<100); Triglycerides 221 mg/dL (<150)
[2023-01-29 08:19] LABS: Estimated Average Glucose 85 mg/dL; Hemoglobin A1c % 4.6 % (<6.0)
[2023-01-29] MEDS: clonazePAM 1 MG TABLET PO ×2 (09:01→20:14)
[2023-01-29] MEDS: lamoTRIgine 100 MG TABLET 200 MG PO ×2 (09:02→20:12)
[2023-01-29] MEDS: Folic Acid 1 MG TABLET PO (09:02)
[2023-01-29] MEDS: FLUoxetine HCl 20 MG CAPSULE 80 MG PO (09:03)
[2023-01-29] MEDS: cloNIDine HCL 0.1 MG TABLET 0.05 MG PO ×2 (09:03→20:14)
[2023-01-29] MEDS: Propranolol HCL 10 MG TABLET PO ×2 (09:05→20:16)
[2023-01-29] MEDS: Thiamine HCL 100 MG TABLET PO (09:05)
--- NOTE | 2023-01-29 09:46 | P.HPPS_ITS ---
HPI Date of Service: 01/29/23 Chief Complaint: depressed/ SI Sources of Information: patient interviewed, chart reviewed and crisis/core team assessment reviewed HPI Subjective Notes: Frost Warning and Conditional Voluntary Narrative: Patient is a 42-year-old male with history of depression, anxiety and alcohol abuse who presents for ongoing depression that has worsened recently and become suicidal. Patient reports after discharge in October he was feeling pretty good. Went to the [facility]. Sober for a month but did relapse once thinking he could have just 1 beer. For the past month he has been sober however his depression has worsened and interest diminished, no energy, low motivation, increased sleep; he reports this past Monday, feeling depressed and wanting some relief he decided to drink which made him more depressed and triggered SI so he presented. Patient denies any history of manic episodes or behaviors; denies AVH. Patient has remained med compliant and has been on current medication regimen for years (Prozac 80 mg, Zyprexa 10 mg, Lamictal 200 mg b.i.d.). Patient was sober for about 6 months however still had his chronic, moderate depression, sometimes made worse by situational events. Past Psychiatric History: Hospital stays: Last admission to spring 2022. IN 2013 He had ECT . has had at least 3 hosps. also has done PHP at least once, which he found helpful, and some [facility] stays. no h/o suicide attempts (but did place a plastic bag over his head during [facility] stay once). h/o SIB - cutting. has required stitches in the past. also slapping himself in the face. Therapist is HOANG Pang. Psychiatrist is HOANG Sanchez. HISTORY OF SEROTONIN SYNDROME Treatment trials: ECT: Said after 6 sessions had body numbness; feels that memory has not been the same since Serotonin syndrome on Zoloft and mirtazapine [place]: Said it made him feel better but his outpatient provider discontinued it saying he did not need it Effexor, Zoloft, Luvox, Wellbutrin (only on for a few weeks but was worried about increased heart rate so discontinued) Depakote: [place] sedated Medical Evaluation Reviewed: Hospitalist Eugene Pending [facility] Medical History (Updated 01/29/23 @ 16:47 by Ken Bonilla MD) Alcohol use disorder, mild, in controlled environment, abuse HTN (hypertension) MDD (major depressive disorder), recurrent episode, severe Tachycardia Transaminitis Family History: Father committed suicide. alcohol use disorder. Aunt alcohol use disorder sister - bipolar disorder Cousin completed suicide Social History: Lived with his mother. Mother last year 10/29/21 youngest of 4 children. father suicided when pt was 9 yo. 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 single. No children. Substance History: Chronic alcoholism Trauma History: Father's suicide when patient was 9 years old Diagnostics Vital Signs (24Hr): Vital Signs - 24 hr 01/28/23 12:10 01/28/23 19:30 Temperature 98.7 F 97.4 F Pulse Rate 68 65 Respiratory Rate 16 Blood Pressure 141/92 H 120/67 Pulse Oximetry 97 Oxygen Delivery Method Room Air BMI result Body Mass Index 33.6 Labs 01/27/23 17:29 01/27/23 17:29 Labs: Laboratory Results - last 48 hr 01/27/23 01/27/23 01/27/23 17:29 17:29 17:29 WBC 8.8 RBC 5.40 Hgb 16.3 Hct 46.5 MCV 86.1 MCH 30.2 MCHC 35.1 RDW 13.0 Plt Count 231 MPV 9.1 L Immature Gran % (Auto) 0.7 H Neut % (Auto) 50.0 Lymph % (Auto) 34.9 [place]pher[place] % (Auto) 6.1 Eos % (Auto) 7.5 H Baso % (Auto) 0.8 Lymph # (Auto) 3.1 [place] # (Auto) 0.5 Eos # (Auto) 0.7 H Baso # (Auto) 0.1 Abs Immat Gran (auto) 0.06 H Absolute Neuts (auto) 4.4 Absolute Nucleated RBC 0.000 Nucleated RBC % (auto) 0.0 Sodium 142 Potassium 4.2 Chloride 106 Carbon Dioxide 21 L Anion Gap 19 BUN 7 L Creatinine 0.86 Estim Creat Clear Calc 146.9 Estimated GFR > 60 Random Glucose 91 Estimat Average Glucose Hemoglobin A1c % Calcium 9.8 Total Bilirubin 0.4 AST 22 ALT 23 Alkaline Phosphatase 109 Total Protein 8.3 H Albumin 4.9 Triglycerides Cholesterol LDL Cholesterol, Calc HDL Cholesterol Urine Color Urine Appearance Urine pH Ur Specific [place] Urine Protein Urine Glucose (UA) Urine Ketones Urine Blood Urine Nitrite Ur Leukocyte Esterase Salicylates Urine Opiates Screen Urine Fentanyl Screen Acetaminophen Ur Barbiturates Screen Ur Phencyclidine Scrn Ur Amphetamines Screen U Benzodiazepines Scrn Urine Cocaine Screen U Marijuana (THC) Screen Ethyl Alcohol 175 COVID-19 (COLE) Negative COVID-19 Clin Com See Note 01/27/23 01/27/23 01/27/23 17:29 17:31 17:31 WBC RBC Hgb Hct MCV MCH MCHC RDW Plt Count MPV Immature Gran % (Auto) Neut % (Auto) Lymph % (Auto) [place]pherson % (Auto) Eos % (Auto) Baso % (Auto) Lymph # (Auto) Mcpherson # (Auto) Eos # (Auto) Baso # (Auto) Abs Immat Gran (auto) Absolute Neuts (auto) Absolute Nucleated RBC Nucleated RBC % (auto) Sodium Potassium Chloride Carbon Dioxide Anion Gap BUN Creatinine Estim Creat Clear Calc Estimated GFR Random Glucose Estimat Average Glucose Hemoglobin A1c % Calcium Total Bilirubin AST ALT Alkaline Phosphatase Total Protein Albumin Triglycerides Cholesterol LDL Cholesterol, Calc HDL Cholesterol Urine Color Yellow Urine Appearance Clear Urine pH 5.5 Ur Specific [place] <= 1.005 Urine Protein Negative Urine Glucose (UA) Negative Urine Ketones Negative Urine Blood Negative Urine Nitrite Negative Ur Leukocyte Esterase Negative Salicylates < 5.0 L Urine Opiates Screen Not Detected Urine Fentanyl Screen Not Detected Acetaminophen < 17 Ur Barbiturates Screen Not Detected Ur Phencyclidine Scrn Not Detected Ur Amphetamines Screen Not Detected U Benzodiazepines Scrn Not Detected Urine Cocaine Screen Not Detected U Marijuana (THC) Screen Not Detected Ethyl Alcohol COVID-19 (COLE) COVID-19 Clin Com 01/29/23 01/29/23 07:46 07:46 WBC RBC Hgb Hct MCV MCH MCHC RDW Plt Count MPV Immature Gran % (Auto) Neut % (Auto) Lymph % (Auto) [place]pher[place] % (Auto) Eos % (Auto) Baso % (Auto) Lymph # (Auto) [place] # (Auto) Eos # (Auto) Baso # (Auto) Abs Immat Gran (auto) Absolute Neuts (auto) Absolute Nucleated RBC Nucleated RBC % (auto) Sodium Potassium Chloride Carbon Dioxide Anion Gap BUN Creatinine Estim Creat Clear Calc Estimated GFR Random Glucose Estimat Average Glucose 85 Hemoglobin A1c % 4.6 Calcium Total Bilirubin AST ALT Alkaline Phosphatase Total Protein Albumin Triglycerides 221 H Cholesterol 220 H LDL Cholesterol, Calc 136 H HDL Cholesterol 40 L Urine Color Urine Appearance Urine pH Ur Specific [place] Urine Protein Urine Glucose (UA) Urine Ketones Urine Blood Urine Nitrite Ur Leukocyte Esterase Salicylates Urine Opiates Screen Urine Fentanyl Screen Acetaminophen Ur Barbiturates Screen Ur Phencyclidine Scrn Ur Amphetamines Screen U Benzodiazepines Scrn Urine Cocaine Screen U Marijuana (THC) Screen Ethyl Alcohol COVID-19 (COLE) COVID-19 Clin Com Meds/Allergies Meds Home Medications Medication Instructions Recorded Confirmed Type clonazepam 1 mg tablet 1 mg PO BID 10/27/22 01/27/23 History clonidine HCl 0.1 mg tablet 0.05 mg PO BID 10/27/22 01/27/23 History olanzapine 10 mg tablet 10 mg PO BEDTIME 10/27/22 01/27/23 History propranolol 10 mg tablet 10 mg PO BID 10/27/22 01/27/23 History lamotrigine 200 mg tablet 200 mg PO BID 01/27/23 01/27/23 History trazodone 50 mg tablet 50 mg PO BEDTIME 01/27/23 01/27/23 History Allergies Allergies Allergy/AdvReac Type Severity Reaction Status Date / Time mirtazapine [MIRTAZAPINE] Allergy Intermediate UNKNOWN Verified 01/27/23 17:42 sulfamethoxazole Allergy Unknown RASH Verified 01/27/23 17:42 [From BACTRIM] trimethoprim [From BACTRIM] Allergy Unknown RASH Verified 01/27/23 17:42 Mental Status Exam Mental Status Exam Narrative: Pt is alert and oriented; behavior is cooperative, friendly and calm; patient is not in distress; dressed in casual attire with adequate grooming and hygiene; mood is described as depressed and affect congruent, downcast; eye contact appropriate; Speech is normal rate, volume and prosody and not pressured; some retardation present; thought process is organized and goal directed; Thought content is on tx; otherwise pertinent to relevant topics and without any delusional content, paranoid ideations or grandiosity; denies any SI/HI. There is no evidence of perceptual disturbance. Patients insight and judgment impaired Assessment & Plan Assessment & Plan (1) MDD (major depressive disorder), recurrent episode, severe: Status: Acute Code(s): F33.2 - Major depressive disorder, recurrent severe without psychotic features (2) Alcohol abuse: Status: Acute Code(s): F10.10 - Alcohol abuse, uncomplicated (3) Tachycardia: Status: Acute Code(s): R00.0 - Tachycardia, unspecified Plan Patient is a 42-year-old male with history of depression, anxiety and alcohol abuse who presents for ongoing depression that has worsened recently and become suicidal. -chronic depression only partially treated with medication; patient has been on current regimen for years (Prozac 80 mg, Zyprexa 10 mg and Lamictal 200 mg b.i.d.; need Zyprexa for sleep) -patient denies any history at all of any manic behaviors or episodes; he is not sure why bipolar disorder is listed in his history. That said, Patient's sister does have bipolar disorder, patient reports having felt better when started on lithium, and has a history of refractory depression only partially treated with SSRI/SNRI. Horse Trekking Guide discussed that there is an outside chance patient may have a touch of bipolar depression even without any obvious manic episode (patient has been on Zyprexa and Lamictal for least 5 years). Patient remains depressed even when sober -discussed medication management. At this time patient is anxious about potential risks/side effects of lithium which were discussed. Instead he rather retry Wellbutrin. He is anxious about the possibility of serotonin syndrome as well as tachycardia since he has a history of both; however he feels that the potential benefit outweighs the risk and would like to start Wellbutrin -OCD listed as well; will need to explore further Plan: CV Q 15 minutes checks Start Wellbutrin XL 150 mg daily; will monitor for tachycardia and serotonin syndrome (rarely Wellbutrin can trigger serotonin syndrome when combined with SSRI) Continue Prozac 80 mg Continue Zyprexa 10 mg q.h.s. Continue lithium 200 mg b.i.d. Continue clonidine, clonazepam, propranolol Patient only drink for 1 day prior to this admission, following a month of sobriety and is not in need of detox Patient educated on: diagnosis, medication risk/benefits, substance abuse, ECT and medical condition Informed Consent: understands Reason for continued inpatient stay Substantial Risk for: rapid decompensation Statement Statement: I have reviewed the history and physical and performed a pertinent examination on my patient. No changes have occurred unless specified. If the History and Physical was not performed prior to admission, the Hospitalist's service will be consulted for completing the admission physical. Time Spent With Patient Time: Total time managing care of this patient today ____ minutes.
--- NOTE | 2023-01-29 09:51 | PHA.MEDREC ---
Pharmacy Consult ? Medication Reconciliation Pharmacy has completed the medication reconciliation. reviewed med rec done by nursing.
[2023-01-29] MEDS: buPROPion HCL 75 MG TABLET PO (17:13)
[2023-01-29 20:00] VITALS: BP 121/77; PULSE 63; TEMP 36.7
[2023-01-29] MEDS: OLANZapine 10 MG TABLET PO (20:14)
[2023-01-29] MEDS: traZODone HCL 50 MG TABLET PO (20:16)
[2023-01-29 23:18] VITALS: PULSE 66; O2SAT 95
--- NOTE | 2023-01-30 03:44 | PC.NURSE ---
PT wore CPAP from [id number], PT stated, It is not the right setting, I don't want to wear it.
[2023-01-30 08:15] VITALS: BP 128/67; PULSE 67; RESP 18; TEMP 36.4; O2SAT 98
[2023-01-30] MEDS: FLUoxetine HCl 20 MG CAPSULE 80 MG PO (08:16)
[2023-01-30] MEDS: Propranolol HCL 10 MG TABLET PO ×2 (08:17→20:01)
[2023-01-30] MEDS: buPROPion HCl XL 150 MG TAB.ER.24H PO (08:17)
[2023-01-30] MEDS: Thiamine HCL 100 MG TABLET PO (08:17)
[2023-01-30] MEDS: clonazePAM 1 MG TABLET PO ×2 (08:17→20:01)
[2023-01-30] MEDS: lamoTRIgine 100 MG TABLET 200 MG PO ×2 (08:17→20:01)
[2023-01-30] MEDS: cloNIDine HCL 0.1 MG TABLET 0.05 MG PO ×2 (08:17→20:01)
[2023-01-30] MEDS: Folic Acid 1 MG TABLET PO (08:18)
[2023-01-30] MEDS: Nicotine Polacrilex 2 MG GUM 4 MG BUCCAL ×2 (09:16→12:15)
--- NOTE | 2023-01-30 10:24 | HO.PSYCHPN ---
Subjective Subjective Date of Service: 01/30/23 Reason For Visit: depressed/ SI Interim History: Met with Patient; discussed with team Depressed but no SI. Patient says he was thinking a lot about his medication regimen and wants to switch and try lithium. He says he does remember that the last time he was on inpatient unit here at [facility] he was on lithium and did feel better; he felt like his depression was resolved and that he had overall more energy; he also reflects on time in 2013 when he was on lithium, felt that it helped and denies any history of side effects. 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 Discussed sobriety; discussed OCD and patient denies any overt symptoms. Mental Status Exam Mental Status Exam Narrative: Pt is alert and oriented; behavior is cooperative, friendly and calm; patient is not in distress; dressed in casual attire with adequate grooming and hygiene; mood is described as depressed and affect congruent, downcast; eye contact appropriate; Speech is normal rate, volume and prosody and not pressured; some retardation present; thought process is organized and goal directed; Thought content is on tx; otherwise pertinent to relevant topics and without any delusional content, paranoid ideations or grandiosity; denies any SI/HI. There is no evidence of perceptual disturbance. Patients insight and judgment impaired but improving Diagnostics Vital Signs (24Hr): Vital Signs - 24 hr 01/29/23 20:00 01/30/23 08:15 Temperature 98.0 F 97.5 F Pulse Rate 63 67 Respiratory Rate 18 Blood Pressure 121/77 128/67 Pulse Oximetry 98 Oxygen Delivery Method Room Air BMI result Body Mass Index 33.6 Labs 01/27/23 17:29 01/27/23 17:29 Labs: Laboratory Results - last 48 hr 01/29/23 01/29/23 07:46 07:46 Estimat Average Glucose 85 Hemoglobin A1c % 4.6 Triglycerides 221 H Cholesterol 220 H LDL Cholesterol, Calc 136 H HDL Cholesterol 40 L Medications Medications Current Medications Acetaminophen (Acetaminophen 325 Mg Tablet) 650 mg PO Q6H PRN PRN Reason: Headache/Pain Mild Scale (1-3) Al Hydroxide/Mg Hydroxide (Magnesium Hydrox/Alum Hydrox 30 Ml Oral.Susp) 30 ml PO Q6H PRN PRN Reason: Heartburn/Nausea Bupropion HCl (Bupropion Hcl Xl 150 Mg Tab.Er.24h) 150 mg PO DAILY [facility] Last Admin: 01/30/23 08:17 Dose: 150 mg Clonazepam (Clonazepam 1 Mg Tablet) 1 mg PO BID [facility] Last Admin: 01/30/23 08:17 Dose: 1 mg Clonidine HCl (Clonidine Hcl 0.1 Mg Tablet) 0.05 mg PO BID [facility]; Protocol Last Admin: 01/30/23 08:17 Dose: 0.05 mg Fluoxetine HCl (Fluoxetine Hcl 20 Mg Capsule) 80 mg PO DAILY [facility] Last Admin: 01/30/23 08:16 Dose: 80 mg Folic Acid (Folic Acid 1 Mg Tablet) 1 mg PO DAILY [facility] Last Admin: 01/30/23 08:18 Dose: 1 mg Hydroxyzine HCl (Hydroxyzine Hcl 25 Mg Tablet) 25 mg PO Q6H PRN PRN Reason: Anxiety Lamotrigine (Lamotrigine 100 Mg Tablet) 200 mg PO BID [facility] Last Admin: 01/30/23 08:17 Dose: 200 mg Magnesium Hydroxide (Milk Of Magnesia 30 Ml Oral.Susp) 30 ml PO DAILY PRN PRN Reason: Constipation Nicotine (Nicotine 21 Mg Patch.Td24) 21 mg TRANSDERMA DAILY PRN PRN Reason: smoking cessation Nicotine Polacrilex (Nicotine Polacrilex 2 Mg Gum) 4 mg BUCCAL Q2H PRN PRN Reason: Nicotine Cravings Last Admin: 01/30/23 09:16 Dose: 4 mg Olanzapine (Olanzapine 10 Mg Tablet) 10 mg PO BEDTIME [facility] Last Admin: 01/29/23 20:14 Dose: 10 mg Olanzapine (Olanzapine 5 Mg Tablet) 5 mg PO TID PRN PRN Reason: agitation Propranolol HCl (Propranolol Hcl 10 Mg Tablet) 10 mg PO BID [facility]; Protocol Last Admin: 01/30/23 08:17 Dose: 10 mg Thiamine HCl (Thiamine Hcl 100 Mg Tablet) 100 mg PO DAILY [facility] Last Admin: 01/30/23 08:17 Dose: 100 mg Trazodone HCl (Trazodone Hcl 50 Mg Tablet) 50 mg PO BEDTIME [facility] Last Admin: 01/29/23 20:16 Dose: 50 mg Trazodone HCl (Trazodone Hcl 50 Mg Tablet) 50 mg PO BEDTIME MRX1 PRN PRN Reason: Insomnia Allergies Allergies Allergy/AdvReac Type Severity Reaction Status Date / Time mirtazapine [MIRTAZAPINE] Allergy Intermediate UNKNOWN Verified 01/27/23 17:42 sulfamethoxazole Allergy Unknown RASH Verified 01/27/23 17:42 [From BACTRIM] trimethoprim [From BACTRIM] Allergy Unknown RASH Verified 01/27/23 17:42 Assessment & Plan Assessment & Plan (1) MDD (major depressive disorder), recurrent episode, severe: Status: Acute Code(s): F33.2 - Major depressive disorder, recurrent severe without psychotic features (2) Alcohol abuse: Status: Acute Code(s): F10.10 - Alcohol abuse, uncomplicated (3) Tachycardia: Status: Acute Code(s): R00.0 - Tachycardia, unspecified Plan Patient is a 42-year-old male with history of depression, anxiety and alcohol abuse who presents for ongoing depression that has worsened recently and become suicidal. -chronic depression only partially treated with medication; patient has been on current regimen for years (Prozac 80 mg, Zyprexa 10 mg and Lamictal 200 mg b.i.d.; need Zyprexa for sleep) -patient denies any history at all of any manic behaviors or episodes; he is not sure why bipolar disorder is listed in his history. That said, Patient's sister does have bipolar disorder, patient reports having felt better when started on lithium, and has a history of refractory depression only partially treated with SSRI/SNRI. Business Development Coordinator discussed that there is an outside chance patient may have a touch of bipolar depression even without any obvious manic episode (patient has been on Zyprexa and Lamictal for least 5 years). Patient remains depressed even when sober -discussed medication management. At this time patient is anxious about potential risks/side effects of lithium which were discussed. Instead he rather retry Wellbutrin. He is anxious about the possibility of serotonin syndrome as well as tachycardia since he has a history of both; however he feels that the potential benefit outweighs the risk and would like to start Wellbutrin -OCD discussed him patient denies any overt symptoms Hospital course: 01/30 patient changed his mind and decided he would rather try lithium, remembering the 2 times he has been on it, feeling better both times. Feels that the risk of side effects is worth it and agrees to discontinue Wellbutrin Plan: CV Q 15 minutes checks DC Wellbutrin START [place] CR 450mg qhs; was on it a few months ago and 2013 and found it helpful Continue Prozac 80 mg Continue Zyprexa 10 mg q.h.s. Continue lithium 200 mg b.i.d. Continue clonidine, clonazepam, propranolol Patient only drink for 1 day prior to this admission, following a month of sobriety and is not in need of detox Patient educated on: diagnosis, medication risk/benefits and substance abuse Informed Consent: understands Reason for continued inpatient stay Substantial Risk for: rapid decompensation Time Spent With Patient Time: Total time managing care of this patient today ____ minutes.
[2023-01-30] MEDS: Acetaminophen 325 MG TABLET 650 MG PO ×2 (12:15→20:00)
[2023-01-30 20:00] VITALS: BP 122/71; PULSE 63; RESP 18; TEMP 36.3
[2023-01-30] MEDS: traZODone HCL 50 MG TABLET PO (20:00)
[2023-01-30] MEDS: OLANZapine 10 MG TABLET PO (20:01)
[2023-01-30] MEDS: Lithium Carbonate ER 450 MG TABLET.ER PO (20:01)
[2023-01-31 00:21] VITALS: RESP 18
[2023-01-31 08:10] VITALS: BP 120/74; PULSE 67; RESP 15; TEMP 36.3; O2SAT 98
[2023-01-31] MEDS: FLUoxetine HCl 20 MG CAPSULE 80 MG PO (08:19)
[2023-01-31] MEDS: lamoTRIgine 100 MG TABLET 200 MG PO ×2 (08:19→19:42)
[2023-01-31] MEDS: clonazePAM 1 MG TABLET PO ×2 (08:19→19:42)
[2023-01-31] MEDS: Folic Acid 1 MG TABLET PO (08:19)
[2023-01-31] MEDS: Thiamine HCL 100 MG TABLET PO (08:19)
[2023-01-31] MEDS: Propranolol HCL 10 MG TABLET PO ×2 (08:19→19:42)
[2023-01-31] MEDS: cloNIDine HCL 0.1 MG TABLET 0.05 MG PO ×2 (08:20→19:42)
--- NOTE | 2023-01-31 13:28 | HO.PSYCHPN ---
Subjective Subjective Date of Service: 01/31/23 Reason For Visit: depressed/ SI Interim History: Met with patient; discussed with team Patient reports that he is doing better. Slept well last night, feels better overall. More hopeful. Tolerating medications well. Discussed medication management and since lithium seem to help with insomnia, patient agrees to see if he can still sleep well with a lower dose of Zyprexa. Will try Zyprexa 7.5 mg with a 2.5 mg as a p.r.n. if needed for insomnia. Mental Status Exam Mental Status Exam Narrative: Pt is alert and oriented; behavior is cooperative, friendly and calm; patient is not in distress; dressed in casual attire with adequate grooming and hygiene; mood is described as better and affect congruent, brighter; eye contact appropriate; Speech is normal rate, volume and prosody and not pressured; some retardation present; thought process is organized and goal directed; Thought content is on tx; otherwise pertinent to relevant topics and without any delusional content, paranoid ideations or grandiosity; denies any SI/HI. There is no evidence of perceptual disturbance. Patients insight and judgment fair Diagnostics Vital Signs (24Hr): Vital Signs - 24 hr 01/30/23 20:00 01/31/23 00:21 01/31/23 08:10 Temperature 97.4 F 97.4 F Pulse Rate 63 67 Respiratory Rate 18 18 15 Blood Pressure 122/71 120/74 Pulse Oximetry 98 Oxygen Delivery Method Room Air BMI result Body Mass Index 33.6 Labs 01/27/23 17:29 01/27/23 17:29 Medications Medications Current Medications Acetaminophen (Acetaminophen 325 Mg Tablet) 650 mg PO Q6H PRN PRN Reason: Headache/Pain Mild Scale (1-3) Last Admin: 01/30/23 20:00 Dose: 650 mg Al Hydroxide/Mg Hydroxide (Magnesium Hydrox/Alum Hydrox 30 Ml Oral.Susp) 30 ml PO Q6H PRN PRN Reason: Heartburn/Nausea Clonazepam (Clonazepam 1 Mg Tablet) 1 mg PO BID [facility] Last Admin: 01/31/23 08:19 Dose: 1 mg Clonidine HCl (Clonidine Hcl 0.1 Mg Tablet) 0.05 mg PO BID [facility]; Protocol Last Admin: 01/31/23 08:20 Dose: 0.05 mg Fluoxetine HCl (Fluoxetine Hcl 20 Mg Capsule) 80 mg PO DAILY [facility] Last Admin: 01/31/23 08:19 Dose: 80 mg Folic Acid (Folic Acid 1 Mg Tablet) 1 mg PO DAILY [facility] Last Admin: 01/31/23 08:19 Dose: 1 mg Hydroxyzine HCl (Hydroxyzine Hcl 25 Mg Tablet) 25 mg PO Q6H PRN PRN Reason: Anxiety Lamotrigine (Lamotrigine 100 Mg Tablet) 200 mg PO BID [facility] Last Admin: 01/31/23 08:19 Dose: 200 mg [place] Carbonate ([place] Carbonate Er 450 Mg Tablet.Er) 450 mg PO BEDTIME [facility] Last Admin: 01/30/23 20:01 Dose: 450 mg Magnesium Hydroxide (Milk Of Magnesia 30 Ml Oral.Susp) 30 ml PO DAILY PRN PRN Reason: Constipation Nicotine (Nicotine 21 Mg Patch.Td24) 21 mg TRANSDERMA DAILY PRN PRN Reason: smoking cessation Nicotine Polacrilex (Nicotine Polacrilex 2 Mg Gum) 4 mg BUCCAL Q2H PRN PRN Reason: Nicotine Cravings Last Admin: 01/30/23 12:15 Dose: 4 mg Olanzapine (Olanzapine 10 Mg Tablet) 10 mg PO BEDTIME [facility] Last Admin: 01/30/23 20:01 Dose: 10 mg Olanzapine (Olanzapine 5 Mg Tablet) 5 mg PO TID PRN PRN Reason: agitation Propranolol HCl (Propranolol Hcl 10 Mg Tablet) 10 mg PO BID [facility]; Protocol Last Admin: 01/31/23 08:19 Dose: 10 mg Thiamine HCl (Thiamine Hcl 100 Mg Tablet) 100 mg PO DAILY [facility] Last Admin: 01/31/23 08:19 Dose: 100 mg Trazodone HCl (Trazodone Hcl 50 Mg Tablet) 50 mg PO BEDTIME [facility] Last Admin: 01/30/23 20:00 Dose: 50 mg Trazodone HCl (Trazodone Hcl 50 Mg Tablet) 50 mg PO BEDTIME MRX1 PRN PRN Reason: Insomnia Allergies Allergies Allergy/AdvReac Type Severity Reaction Status Date / Time mirtazapine [MIRTAZAPINE] Allergy Intermediate UNKNOWN Verified 01/27/23 17:42 sulfamethoxazole Allergy Unknown RASH Verified 01/27/23 17:42 [From BACTRIM] trimethoprim [From BACTRIM] Allergy Unknown RASH Verified 01/27/23 17:42 Assessment & Plan Assessment & Plan (1) MDD (major depressive disorder), recurrent episode, severe: Status: Acute Code(s): F33.2 - Major depressive disorder, recurrent severe without psychotic features (2) Alcohol abuse: Status: Acute Code(s): F10.10 - Alcohol abuse, uncomplicated (3) Tachycardia: Status: Acute Code(s): R00.0 - Tachycardia, unspecified Plan Patient is a 42-year-old male with history of depression, anxiety and alcohol abuse who presents for ongoing depression that has worsened recently and become suicidal. -chronic depression only partially treated with medication; patient has been on current regimen for years (Prozac 80 mg, Zyprexa 10 mg and Lamictal 200 mg b.i.d.; need Zyprexa for sleep) -patient denies any history at all of any manic behaviors or episodes; he is not sure why bipolar disorder is listed in his history. That said, Patient's sister does have bipolar disorder, patient reports having felt better when started on lithium, and has a history of refractory depression only partially treated with SSRI/SNRI. Lead Systems Analyst discussed that there is an outside chance patient may have a touch of bipolar depression even without any obvious manic episode (patient has been on Zyprexa and Lamictal for least 5 years). Patient remains depressed even when sober -discussed medication management. At this time patient is anxious about potential risks/side effects of lithium which were discussed. Instead he rather retry Wellbutrin. He is anxious about the possibility of serotonin syndrome as well as tachycardia since he has a history of both; however he feels that the potential benefit outweighs the risk and would like to start Wellbutrin -OCD discussed him patient denies any overt symptoms Hospital course: 01/30 patient changed his mind and decided he would rather try lithium, remembering the 2 times he has been on it, feeling better both times. Feels that the risk of side effects is worth it and agrees to discontinue Wellbutrin 01/31 Met with patient; discussed with team Patient reports that he is doing better. Slept well last night, feels better overall. More hopeful. Tolerating medications well. Discussed medication management and since lithium seem to help with insomnia, patient agrees to see if he can still sleep well with a lower dose of Zyprexa. Will try Zyprexa 7.5 mg with a 2.5 mg as a p.r.n. if needed for insomnia. Patient reports 70 lb weight gain over the years on Zyprexa and would be happy to see if he can do okay with less dose. Plan: CV Q 15 minutes checks DC Wellbutrin Continue [place] CR 450mg qhs; was on it a few months ago and 2013 and found it helpful Continue Prozac 80 mg LOWER to Zyprexa 7.5 mg q.h.s. ADD Zyprexa 2.5mg as prn for insomnia continue Trazodone 50mg with PRN available. Continue Lamictal 200 mg b.i.d. Continue clonidine, clonazepam, propranolol Patient only drink for 1 day prior to this admission, following a month of sobriety and is not in need of detox Patient educated on: diagnosis and medication risk/benefits Informed Consent: understands Reason for continued inpatient stay Substantial Risk for: stable for discharge Time Spent With Patient Time: Total time managing care of this patient today ____ minutes.
[2023-01-31] MEDS: Milk of Magnesia 30 ML ORAL.SUSP PO (15:52)
[2023-01-31 19:22] VITALS: BP 102/64; PULSE 65; TEMP 36.1
[2023-01-31] MEDS: Acetaminophen 325 MG TABLET 650 MG PO (19:41)
[2023-01-31] MEDS: OLANZapine 7.5 MG TABLET PO (19:41)
[2023-01-31] MEDS: traZODone HCL 50 MG TABLET PO (19:41)
[2023-01-31] MEDS: Lithium Carbonate ER 450 MG TABLET.ER PO (19:42)
[2023-02-01 08:10] VITALS: BP 112/72; PULSE 81; RESP 16; TEMP 36.3; O2SAT 96
[2023-02-01] MEDS: lamoTRIgine 100 MG TABLET 200 MG PO ×2 (08:22→19:32)
[2023-02-01] MEDS: Propranolol HCL 10 MG TABLET PO ×2 (08:22→19:34)
[2023-02-01] MEDS: FLUoxetine HCl 20 MG CAPSULE 80 MG PO (08:22)
[2023-02-01] MEDS: Thiamine HCL 100 MG TABLET PO (08:22)
[2023-02-01] MEDS: cloNIDine HCL 0.1 MG TABLET 0.05 MG PO ×2 (08:23→19:33)
[2023-02-01] MEDS: clonazePAM 1 MG TABLET PO ×2 (08:23→19:32)
[2023-02-01] MEDS: Folic Acid 1 MG TABLET PO (08:23)
--- NOTE | 2023-02-01 09:55 | HO.PSYCHPN ---
Subjective Subjective Date of Service: 02/01/23 Reason For Visit: depressed/ SI Interim History: Met with patient; discussed with team Continues to feel better. Said he slept well last night. Agrees to lower Zyprexa further down to 5 mg to see if he can still sleep; asked to have trazodone increased to 100. Said that if he sleeps till later on lower trazodone in order to be on the lowest dose as possible. Patient is grateful that he is feeling better. Discussed maintenance medication for cravings. Patient has tried Vivitrol and gabapentin neither of them working. He says he just thinks that his cravings overwhelm at and there un helpful. Patient discussed at getting into AA meetings and getting a sponsor. Mental Status Exam Mental Status Exam Narrative: Pt is alert and oriented; behavior is cooperative, friendly and calm; patient is not in distress; dressed in casual attire with adequate grooming and hygiene; mood is described as better and affect congruent, brighter; eye contact appropriate; Speech is normal rate, volume and prosody and not pressured; some retardation present; thought process is organized and goal directed; Thought content is on tx; otherwise pertinent to relevant topics and without any delusional content, paranoid ideations or grandiosity; denies any SI/HI. There is no evidence of perceptual disturbance. Patients insight and judgment fair Diagnostics Vital Signs (24Hr): Vital Signs - 24 hr 01/31/23 19:22 02/01/23 08:10 Temperature 97 F 97.4 F Pulse Rate 65 81 Respiratory Rate 16 Blood Pressure 102/64 112/72 Pulse Oximetry 96 Oxygen Delivery Method Room Air BMI result Body Mass Index 33.6 Labs 01/27/23 17:29 01/27/23 17:29 Medications Medications Current Medications Acetaminophen (Acetaminophen 325 Mg Tablet) 650 mg PO Q6H PRN PRN Reason: Headache/Pain Mild Scale (1-3) Last Admin: 01/31/23 19:41 Dose: 650 mg Al Hydroxide/Mg Hydroxide (Magnesium Hydrox/Alum Hydrox 30 Ml Oral.Susp) 30 ml PO Q6H PRN PRN Reason: Heartburn/Nausea Clonazepam (Clonazepam 1 Mg Tablet) 1 mg PO BID [facility] Last Admin: 02/01/23 08:23 Dose: 1 mg Clonidine HCl (Clonidine Hcl 0.1 Mg Tablet) 0.05 mg PO BID [facility]; Protocol Last Admin: 02/01/23 08:23 Dose: 0.05 mg Fluoxetine HCl (Fluoxetine Hcl 20 Mg Capsule) 80 mg PO DAILY [facility] Last Admin: 02/01/23 08:22 Dose: 80 mg Folic Acid (Folic Acid 1 Mg Tablet) 1 mg PO DAILY [facility] Last Admin: 02/01/23 08:23 Dose: 1 mg Hydroxyzine HCl (Hydroxyzine Hcl 25 Mg Tablet) 25 mg PO Q6H PRN PRN Reason: Anxiety Lamotrigine (Lamotrigine 100 Mg Tablet) 200 mg PO BID [facility] Last Admin: 02/01/23 08:22 Dose: 200 mg [place] Carbonate ([place] Carbonate Er 450 Mg Tablet.Er) 450 mg PO BEDTIME [facility] Last Admin: 01/31/23 19:42 Dose: 450 mg Magnesium Hydroxide (Milk Of Magnesia 30 Ml Oral.Susp) 30 ml PO DAILY PRN PRN Reason: Constipation Last Admin: 01/31/23 15:52 Dose: 30 ml Nicotine (Nicotine 21 Mg Patch.Td24) 21 mg TRANSDERMA DAILY PRN PRN Reason: smoking cessation Nicotine Polacrilex (Nicotine Polacrilex 2 Mg Gum) 4 mg BUCCAL Q2H PRN PRN Reason: Nicotine Cravings Last Admin: 01/30/23 12:15 Dose: 4 mg Olanzapine (Olanzapine 7.5 Mg Tablet) 7.5 mg PO BEDTIME [facility] Last Admin: 01/31/23 19:41 Dose: 7.5 mg Olanzapine (Olanzapine 2.5 Mg Tablet) 2.5 mg PO TID PRN PRN Reason: Insomnia/anxiety Propranolol HCl (Propranolol Hcl 10 Mg Tablet) 10 mg PO BID [facility]; Protocol Last Admin: 02/01/23 08:22 Dose: 10 mg Thiamine HCl (Thiamine Hcl 100 Mg Tablet) 100 mg PO DAILY [facility] Last Admin: 02/01/23 08:22 Dose: 100 mg Trazodone HCl (Trazodone Hcl 50 Mg Tablet) 50 mg PO BEDTIME [facility] Last Admin: 01/31/23 19:41 Dose: 50 mg Trazodone HCl (Trazodone Hcl 50 Mg Tablet) 50 mg PO BEDTIME MRX1 PRN PRN Reason: Insomnia Allergies Allergies Allergy/AdvReac Type Severity Reaction Status Date / Time mirtazapine [MIRTAZAPINE] Allergy Intermediate UNKNOWN Verified 01/27/23 17:42 sulfamethoxazole Allergy Unknown RASH Verified 01/27/23 17:42 [From BACTRIM] trimethoprim [From BACTRIM] Allergy Unknown RASH Verified 01/27/23 17:42 Assessment & Plan Assessment & Plan (1) MDD (major depressive disorder), recurrent episode, severe: Status: Acute Code(s): F33.2 - Major depressive disorder, recurrent severe without psychotic features (2) Alcohol abuse: Status: Acute Code(s): F10.10 - Alcohol abuse, uncomplicated (3) Tachycardia: Status: Acute Code(s): R00.0 - Tachycardia, unspecified Plan Patient is a 42-year-old male with history of depression, anxiety and alcohol abuse who presents for ongoing depression that has worsened recently and become suicidal. -chronic depression only partially treated with medication; patient has been on current regimen for years (Prozac 80 mg, Zyprexa 10 mg and Lamictal 200 mg b.i.d.; need Zyprexa for sleep) -patient denies any history at all of any manic behaviors or episodes; he is not sure why bipolar disorder is listed in his history. That said, Patient's sister does have bipolar disorder, patient reports having felt better when started on lithium, and has a history of refractory depression only partially treated with SSRI/SNRI. Urgent Care Physician Assistant discussed that there is an outside chance patient may have a touch of bipolar depression even without any obvious manic episode (patient has been on Zyprexa and Lamictal for least 5 years). Patient remains depressed even when sober -discussed medication management. At this time patient is anxious about potential risks/side effects of lithium which were discussed. Instead he rather retry Wellbutrin. He is anxious about the possibility of serotonin syndrome as well as tachycardia since he has a history of both; however he feels that the potential benefit outweighs the risk and would like to start Wellbutrin -OCD discussed him patient denies any overt symptoms Hospital course: 01/30 patient changed his mind and decided he would rather try lithium, remembering the 2 times he has been on it, feeling better both times. Feels that the risk of side effects is worth it and agrees to discontinue Wellbutrin 01/31 Met with patient; discussed with team Patient reports that he is doing better. Slept well last night, feels better overall. More hopeful. Tolerating medications well. Discussed medication management and since lithium seem to help with insomnia, patient agrees to see if he can still sleep well with a lower dose of Zyprexa. Will try Zyprexa 7.5 mg with a 2.5 mg as a p.r.n. if needed for insomnia. Patient reports 70 lb weight gain over the years on Zyprexa and would be happy to see if he can do okay with less dose. 02/01 tolerating medications well. Will lower Zyprexa further to 5 mg to see if he can still sleep on lower dose; patient has had considerable weight gain on this medication. Discussed how it also acts as a mood stabilizer and synergistically with Prozac for depression which patient will keep in mind. Plan: CV Q 15 minutes checks DC Wellbutrin Continue [place] CR 450mg qhs; was on it a few months ago and 2013 and found it helpful Continue Prozac 80 mg LOWER to Zyprexa 5 mg q.h.s. ADD Zyprexa 2.5mg as prn for insomnia Increased to Trazodone 100 mg scheduled. Continue Lamictal 200 mg b.i.d. Continue clonidine, clonazepam, propranolol Patient only drink for 1 day prior to this admission, following a month of sobriety and is not in need of detox Patient educated on: diagnosis, medication risk/benefits, substance abuse and therapeutic strategies Informed Consent: understands Reason for continued inpatient stay Substantial Risk for: stable for discharge Time Spent With Patient Time: Total time managing care of this patient today ____ minutes.
[2023-02-01 19:25] VITALS: BP 108/66; PULSE 70; TEMP 36.5
[2023-02-01] MEDS: OLANZapine 5 MG TABLET PO (19:33)
[2023-02-01] MEDS: Lithium Carbonate ER 450 MG TABLET.ER PO (19:35)
[2023-02-01] MEDS: traZODone HCL 100 MG TABLET PO (19:35)
[2023-02-01 23:41] VITALS: RESP 16
[2023-02-02 07:00] VITALS: BMI 33.5
[2023-02-02] MEDS: clonazePAM 1 MG TABLET PO ×2 (08:33→19:33)
[2023-02-02] MEDS: cloNIDine HCL 0.1 MG TABLET 0.05 MG PO ×2 (08:33→19:33)
[2023-02-02] MEDS: lamoTRIgine 100 MG TABLET 200 MG PO ×2 (08:33→19:33)
[2023-02-02] MEDS: Propranolol HCL 10 MG TABLET PO ×2 (08:33→19:32)
[2023-02-02] MEDS: FLUoxetine HCl 20 MG CAPSULE 80 MG PO (08:33)
[2023-02-02] MEDS: Thiamine HCL 100 MG TABLET PO (08:33)
[2023-02-02] MEDS: Folic Acid 1 MG TABLET PO (08:34)
[2023-02-02 08:48] VITALS: BP 109/70; PULSE 85; RESP 16; TEMP 36.4; O2SAT 97
--- NOTE | 2023-02-02 09:23 | P.PNPSI_ITS ---
Subjective Subjective Date of Service: 02/02/23 Reason For Visit: depressed/ SI Interim History: met with patient; discussed with team patient reports he remains feeling better; no depression, no SI; feeling ready for discharge. Pt slept well last night on only Zyprexa 5mg, and increased trazodone. wants partial day program; plans to get sponsor Discussed hx more; pt maintains sober for about 4 weeks while at [facility] and only drank the day before he was admitted. Has not driving while intoxicated for many months; left [facility] after 1.5 weeks since most there were constantly talking about addiction to crack/heroin and he could not relate/fit in. discussed relationship with sister; he finds her well-meaning but exaggerative and meddling; would prefer her to let him work out his sobriety for better or worse..on his own. Mental Status Exam Mental Status Exam Narrative: Pt is alert and oriented; behavior is cooperative, friendly and calm; patient is not in distress; dressed in casual attire with adequate grooming and hygiene; mood is described as better and affect congruent, brighter; eye contact appropriate; Speech is normal rate, volume and prosody and not pressured; some retardation present; thought process is organized and goal directed; Thought content is on tx; otherwise pertinent to relevant topics and without any delusional content, paranoid ideations or grandiosity; denies any SI/HI. There is no evidence of perceptual disturbance. Patients insight and judgment fair Diagnostics Vital Signs (24Hr): Vital Signs - 24 hr 02/01/23 19:25 02/01/23 23:41 02/02/23 08:48 Temperature 97.7 F 97.5 F Pulse Rate 70 85 Respiratory Rate 16 16 Blood Pressure 108/66 109/70 Pulse Oximetry 97 Oxygen Delivery Method Room Air BMI result Body Mass Index 33.6 Labs 01/27/23 17:29 01/27/23 17:29 Medications Medications Current Medications Acetaminophen (Acetaminophen 325 Mg Tablet) 650 mg PO Q6H PRN PRN Reason: Headache/Pain Mild Scale (1-3) Last Admin: 01/31/23 19:41 Dose: 650 mg Al Hydroxide/Mg Hydroxide (Magnesium Hydrox/Alum Hydrox 30 Ml Oral.Susp) 30 ml PO Q6H PRN PRN Reason: Heartburn/Nausea Clonazepam (Clonazepam 1 Mg Tablet) 1 mg PO BID [facility] Last Admin: 02/02/23 08:33 Dose: 1 mg Clonidine HCl (Clonidine Hcl 0.1 Mg Tablet) 0.05 mg PO BID [facility]; Protocol Last Admin: 02/02/23 08:33 Dose: 0.05 mg Fluoxetine HCl (Fluoxetine Hcl 20 Mg Capsule) 80 mg PO DAILY [facility] Last Admin: 02/02/23 08:33 Dose: 80 mg Folic Acid (Folic Acid 1 Mg Tablet) 1 mg PO DAILY [facility] Last Admin: 02/02/23 08:34 Dose: 1 mg Hydroxyzine HCl (Hydroxyzine Hcl 25 Mg Tablet) 25 mg PO Q6H PRN PRN Reason: Anxiety Lamotrigine (Lamotrigine 100 Mg Tablet) 200 mg PO BID [facility] Last Admin: 02/02/23 08:33 Dose: 200 mg [place] Carbonate ([place] Carbonate Er 450 Mg Tablet.Er) 450 mg PO BEDTIME [facility] Last Admin: 02/01/23 19:35 Dose: 450 mg Magnesium Hydroxide (Milk Of Magnesia 30 Ml Oral.Susp) 30 ml PO DAILY PRN PRN Reason: Constipation Last Admin: 01/31/23 15:52 Dose: 30 ml Nicotine (Nicotine 21 Mg Patch.Td24) 21 mg TRANSDERMA DAILY PRN PRN Reason: smoking cessation Nicotine Polacrilex (Nicotine Polacrilex 2 Mg Gum) 4 mg BUCCAL Q2H PRN PRN Reason: Nicotine Cravings Last Admin: 01/30/23 12:15 Dose: 4 mg Olanzapine (Olanzapine 2.5 Mg Tablet) 2.5 mg PO TID PRN PRN Reason: Insomnia/anxiety Olanzapine (Olanzapine 5 Mg Tablet) 5 mg PO BEDTIME [facility] Last Admin: 02/01/23 19:33 Dose: 5 mg Propranolol HCl (Propranolol Hcl 10 Mg Tablet) 10 mg PO BID [facility]; Protocol Last Admin: 02/02/23 08:33 Dose: 10 mg Thiamine HCl (Thiamine Hcl 100 Mg Tablet) 100 mg PO DAILY [facility] Last Admin: 02/02/23 08:33 Dose: 100 mg Trazodone HCl (Trazodone Hcl 50 Mg Tablet) 50 mg PO BEDTIME MRX1 PRN PRN Reason: Insomnia Trazodone HCl (Trazodone Hcl 100 Mg Tablet) 100 mg PO BEDTIME [facility] Last Admin: 02/01/23 19:35 Dose: 100 mg Allergies Allergies Allergy/AdvReac Type Severity Reaction Status Date / Time mirtazapine [MIRTAZAPINE] Allergy Intermediate UNKNOWN Verified 01/27/23 17:42 sulfamethoxazole Allergy Unknown RASH Verified 01/27/23 17:42 [From BACTRIM] trimethoprim [From BACTRIM] Allergy Unknown RASH Verified 01/27/23 17:42 Assessment & Plan Assessment & Plan (1) MDD (major depressive disorder), recurrent episode, severe: Qualifiers: Psychotic features: without psychotic features Qualified Code(s): F33.2 - Major depressive disorder, recurrent severe without psychotic features Status: Acute Code(s): F33.2 - Major depressive disorder, recurrent severe without psychotic features (2) Alcohol abuse: Status: Acute Code(s): F10.10 - Alcohol abuse, uncomplicated (3) Tachycardia: Status: Acute Code(s): R00.0 - Tachycardia, unspecified Plan Patient is a 42-year-old male with history of depression, anxiety and alcohol abuse who presents for ongoing depression that has worsened recently and become suicidal. -chronic depression only partially treated with medication; patient has been on current regimen for years (Prozac 80 mg, Zyprexa 10 mg and Lamictal 200 mg b.i.d.; need Zyprexa for sleep) -patient denies any history at all of any manic behaviors or episodes; he is not sure why bipolar disorder is listed in his history. That said, Patient's sister does have bipolar disorder, patient reports having felt better when started on lithium, and has a history of refractory depression only partially treated with SSRI/SNRI. Chassis Driver discussed that there is an outside chance patient may have a touch of bipolar depression even without any obvious manic episode (patient has been on Zyprexa and Lamictal for least 5 years). Patient remains depressed even when sober -discussed medication management. At this time patient is anxious about potential risks/side effects of lithium which were discussed. Instead he rather retry Wellbutrin. He is anxious about the possibility of serotonin syndrome as well as tachycardia since he has a history of both; however he feels that the potential benefit outweighs the risk and would like to start Wellbutrin -OCD discussed him patient denies any overt symptoms Hospital course: 01/30 patient changed his mind and decided he would rather try lithium, remembering the 2 times he has been on it, feeling better both times. Feels that the risk of side effects is worth it and agrees to discontinue Wellbutrin 01/31 Met with patient; discussed with team Patient reports that he is doing better. Slept well last night, feels better overall. More hopeful. Tolerating medications well. Discussed medication management and since lithium seem to help with insomnia, patient agrees to see if he can still sleep well with a lower dose of Zyprexa. Will try Zyprexa 7.5 mg with a 2.5 mg as a p.r.n. if needed for insomnia. Patient reports 70 lb weight gain over the years on Zyprexa and would be happy to see if he can do okay with less dose. 02/01 tolerating medications well. Will lower Zyprexa further to 5 mg to see if he can still sleep on lower dose; patient has had considerable weight gain on this medication. Discussed how it also acts as a mood stabilizer and synergistically with Prozac for depression which patient will keep in mind. 02/02 remains doing much better, no depression, no SI, hopeful and optimistic. Tolerating [place]; feeling ready to return to community. Pt not in imminent risk for harm to self or others and team engaged in dispo planning. Plan: CV Q 15 minutes checks DC Wellbutrin Continue [place] CR 450mg qhs; was on it a few months ago and 2013 and found it helpful -labs orderded Continue Prozac 80 mg continue Zyprexa 5 mg q.h.s. Zyprexa 2.5mg as prn for insomnia Continue Trazodone 100 mg scheduled. Continue Lamictal 200 mg b.i.d. Continue clonidine, clonazepam, propranolol Patient only drink for 1 day prior to this admission, following a month of sobriety and is not in need of detox Patient educated on: diagnosis, medication risk/benefits, substance abuse and therapeutic strategies Informed Consent: understands Reason for continued inpatient stay Substantial Risk for: stable for discharge Time Spent With Patient Time: Total time managing care of this patient today ____ minutes.
[2023-02-02 09:24] LABS: TSH reflex Free T4 1.02 uIU/mL (0.32-4.0)
[2023-02-02 19:30] VITALS: BP 124/66; PULSE 66; TEMP 36.8
[2023-02-02] MEDS: OLANZapine 5 MG TABLET PO (19:33)
[2023-02-02] MEDS: Lithium Carbonate ER 450 MG TABLET.ER PO (19:33)
[2023-02-02] MEDS: traZODone HCL 100 MG TABLET PO (19:33)
[2023-02-02 22:54] VITALS: RESP 16
[2023-02-03 08:32] LABS: Lithium 0.32 mmol/L (0.60-1.20)
[2023-02-03] MEDS: cloNIDine HCL 0.1 MG TABLET 0.05 MG PO ×2 (09:27→19:34)
[2023-02-03] MEDS: clonazePAM 1 MG TABLET PO ×2 (09:27→19:36)
[2023-02-03] MEDS: lamoTRIgine 100 MG TABLET 200 MG PO ×2 (09:28→19:35)
[2023-02-03] MEDS: Folic Acid 1 MG TABLET PO (09:28)
[2023-02-03] MEDS: Thiamine HCL 100 MG TABLET PO (09:28)
[2023-02-03] MEDS: Propranolol HCL 10 MG TABLET PO ×2 (09:28→19:35)
[2023-02-03] MEDS: FLUoxetine HCl 20 MG CAPSULE 80 MG PO (09:28)
[2023-02-03 09:38] VITALS: BP 112/67; PULSE 83; RESP 16; TEMP 36.1; O2SAT 97
--- NOTE | 2023-02-03 09:51 | HO.PSYCHPN ---
Subjective Subjective Date of Service: 02/03/23 Reason For Visit: depressed/ SI Subjective Notes: Conditional Voluntary Interim History: Pt reports feeling better. He reports feeling less depressed than last week. he also reports sleep has improved. He denied SI/HI. No signs of psychosis or delusions. No side effects with lithium- denies increase fluid intake, or GI side effects or tremors. [place] level today 0.32. Pt has been visible on the unit. He attends assigned groups. No behavioral concerns. D/C tomorrow. Diagnostics Vital Signs (24Hr): Vital Signs - 24 hr 02/02/23 19:30 02/02/23 22:54 02/03/23 09:38 Temperature 98.3 F 97 F Pulse Rate 66 83 Respiratory Rate 16 16 Blood Pressure 124/66 112/67 Pulse Oximetry 97 Oxygen Delivery Method Room Air BMI result Body Mass Index 33.5 Labs 01/27/23 17:29 02/03/23 07:49 Labs: Laboratory Results - last 48 hr 02/02/23 02/03/23 08:30 07:49 TSH 1.02 [place] 0.32 L Medications Medications Current Medications Acetaminophen (Acetaminophen 325 Mg Tablet) 650 mg PO Q6H PRN PRN Reason: Headache/Pain Mild Scale (1-3) Last Admin: 01/31/23 19:41 Dose: 650 mg Al Hydroxide/Mg Hydroxide (Magnesium Hydrox/Alum Hydrox 30 Ml Oral.Susp) 30 ml PO Q6H PRN PRN Reason: Heartburn/Nausea Clonazepam (Clonazepam 1 Mg Tablet) 1 mg PO BID [facility] Last Admin: 02/03/23 09:27 Dose: 1 mg Clonidine HCl (Clonidine Hcl 0.1 Mg Tablet) 0.05 mg PO BID [facility]; Protocol Last Admin: 02/03/23 09:27 Dose: 0.05 mg Fluoxetine HCl (Fluoxetine Hcl 20 Mg Capsule) 80 mg PO DAILY [facility] Last Admin: 02/03/23 09:28 Dose: 80 mg Folic Acid (Folic Acid 1 Mg Tablet) 1 mg PO DAILY [facility] Last Admin: 02/03/23 09:28 Dose: 1 mg Hydroxyzine HCl (Hydroxyzine Hcl 25 Mg Tablet) 25 mg PO Q6H PRN PRN Reason: Anxiety Lamotrigine (Lamotrigine 100 Mg Tablet) 200 mg PO BID [facility] Last Admin: 02/03/23 09:28 Dose: 200 mg [place] Carbonate ([place] Carbonate Er 450 Mg Tablet.Er) 450 mg PO BEDTIME [facility] Last Admin: 02/02/23 19:33 Dose: 450 mg Magnesium Hydroxide (Milk Of Magnesia 30 Ml Oral.Susp) 30 ml PO DAILY PRN PRN Reason: Constipation Last Admin: 01/31/23 15:52 Dose: 30 ml Nicotine (Nicotine 21 Mg Patch.Td24) 21 mg TRANSDERMA DAILY PRN PRN Reason: smoking cessation Nicotine Polacrilex (Nicotine Polacrilex 2 Mg Gum) 4 mg BUCCAL Q2H PRN PRN Reason: Nicotine Cravings Last Admin: 01/30/23 12:15 Dose: 4 mg Olanzapine (Olanzapine 2.5 Mg Tablet) 2.5 mg PO TID PRN PRN Reason: Insomnia/anxiety Olanzapine (Olanzapine 5 Mg Tablet) 5 mg PO BEDTIME [facility] Last Admin: 02/02/23 19:33 Dose: 5 mg Propranolol HCl (Propranolol Hcl 10 Mg Tablet) 10 mg PO BID [facility]; Protocol Last Admin: 02/03/23 09:28 Dose: 10 mg Thiamine HCl (Thiamine Hcl 100 Mg Tablet) 100 mg PO DAILY [facility] Last Admin: 02/03/23 09:28 Dose: 100 mg Trazodone HCl (Trazodone Hcl 50 Mg Tablet) 50 mg PO BEDTIME MRX1 PRN PRN Reason: Insomnia Trazodone HCl (Trazodone Hcl 100 Mg Tablet) 100 mg PO BEDTIME [facility] Last Admin: 02/02/23 19:33 Dose: 100 mg Allergies Allergies Allergy/AdvReac Type Severity Reaction Status Date / Time mirtazapine [MIRTAZAPINE] Allergy Intermediate UNKNOWN Verified 01/27/23 17:42 sulfamethoxazole Allergy Unknown RASH Verified 01/27/23 17:42 [From BACTRIM] trimethoprim [From BACTRIM] Allergy Unknown RASH Verified 01/27/23 17:42 Assessment & Plan Assessment & Plan (1) MDD (major depressive disorder), recurrent episode, severe: Qualifiers: Psychotic features: without psychotic features Qualified Code(s): F33.2 - Major depressive disorder, recurrent severe without psychotic features Status: Acute Code(s): F33.2 - Major depressive disorder, recurrent severe without psychotic features (2) Alcohol abuse: Status: Acute Code(s): F10.10 - Alcohol abuse, uncomplicated (3) Tachycardia: Status: Acute Code(s): R00.0 - Tachycardia, unspecified Plan Patient is a 42-year-old male with history of depression, anxiety and alcohol abuse who presents for ongoing depression that has worsened recently and become suicidal. -chronic depression only partially treated with medication; patient has been on current regimen for years (Prozac 80 mg, Zyprexa 10 mg and Lamictal 200 mg b.i.d.; need Zyprexa for sleep) -patient denies any history at all of any manic behaviors or episodes; he is not sure why bipolar disorder is listed in his history. That said, Patient's sister does have bipolar disorder, patient reports having felt better when started on lithium, and has a history of refractory depression only partially treated with SSRI/SNRI. Mail Carrier Technician discussed that there is an outside chance patient may have a touch of bipolar depression even without any obvious manic episode (patient has been on Zyprexa and Lamictal for least 5 years). Patient remains depressed even when sober -discussed medication management. At this time patient is anxious about potential risks/side effects of lithium which were discussed. Instead he rather retry Wellbutrin. He is anxious about the possibility of serotonin syndrome as well as tachycardia since he has a history of both; however he feels that the potential benefit outweighs the risk and would like to start Wellbutrin -OCD discussed him patient denies any overt symptoms Hospital course: 01/30 patient changed his mind and decided he would rather try lithium, remembering the 2 times he has been on it, feeling better both times. Feels that the risk of side effects is worth it and agrees to discontinue Wellbutrin 01/31 Met with patient; discussed with team Patient reports that he is doing better. Slept well last night, feels better overall. More hopeful. Tolerating medications well. Discussed medication management and since lithium seem to help with insomnia, patient agrees to see if he can still sleep well with a lower dose of Zyprexa. Will try Zyprexa 7.5 mg with a 2.5 mg as a p.r.n. if needed for insomnia. Patient reports 70 lb weight gain over the years on Zyprexa and would be happy to see if he can do okay with less dose. 02/01 tolerating medications well. Will lower Zyprexa further to 5 mg to see if he can still sleep on lower dose; patient has had considerable weight gain on this medication. Discussed how it also acts as a mood stabilizer and synergistically with Prozac for depression which patient will keep in mind. 02/02 remains doing much better, no depression, no SI, hopeful and optimistic. Tolerating [place]; feeling ready to return to community. Pt not in imminent risk for harm to self or others and team engaged in dispo planning. 02/03 continue tx. d/c on 02/04. Plan: CV Q 15 minutes checks DC Wellbutrin Continue [place] CR 450mg qhs; was on it a few months ago and 2013 and found it helpful -labs orderded Continue Prozac 80 mg continue Zyprexa 5 mg q.h.s. Zyprexa 2.5mg as prn for insomnia Continue Trazodone 100 mg scheduled. Continue Lamictal 200 mg b.i.d. Continue clonidine, clonazepam, propranolol Patient only drink for 1 day prior to this admission, following a month of sobriety and is not in need of detox Reason for continued inpatient stay Substantial Risk for: stable for discharge Time Spent With Patient Time: Total time managing care of this patient today ____ minutes.
[2023-02-03 10:55] LABS: Blood Urea Nitrogen 13 mg/dL (9-16); Creatinine Clr Calc Pharmacy 112.1; Estimated Glomerular Filt Rate > 60
[2023-02-03 11:17] LABS: TSH reflex Free T4 1.18 uIU/mL (0.32-4.0)
[2023-02-03] MEDS: Milk of Magnesia 30 ML ORAL.SUSP PO (14:03)
[2023-02-03 18:00] VITALS: BP 124/71; PULSE 79; RESP 18; TEMP 36.7; O2SAT 100
--- NOTE | 2023-02-03 18:22 | MHC.RECOVRN ---
This singer songwriter met with patient to review recovery supports. Pt admitted for SI due to ETOH recurrence. Pt reports hx of ETOH use with intermittent periods of recovery. Pt reports was sober for 6 months this year, brief recurrence, 8 drinks CLIENT SUPPORT ADMINISTRATOR. Pt reports has tried naltrexone in the past, did not find it helpful. Pt reports plans to attend IOP as part of discharge plan. Pt requesting to speak with Aurist. Pt reports plans to attend AA meetings in the community, as found them helpful in the past. Aurist to meet with patient elie.
[2023-02-03] MEDS: Acetaminophen 325 MG TABLET 650 MG PO (19:33)
[2023-02-03] MEDS: traZODone HCL 100 MG TABLET PO (19:33)
[2023-02-03] MEDS: OLANZapine 5 MG TABLET PO (19:34)
[2023-02-03] MEDS: Lithium Carbonate ER 450 MG TABLET.ER PO (19:35)
--- NOTE | 2023-02-03 20:33 | MHC.RECOVSUP ---
? Reason for consult:ETOH o? Current location:M5? o? Identified substance use concern:? -? Support ? Intervention: o? Community resources provided ? Plan:Outpatient services (wrestling coach referral) ? Additional information:MARIAM met with this pt and discussed treatment options, this pt was interested in outpatient services, obtaining a academic coach and connecting to the recovery community.
[2023-02-04 07:50] VITALS: BP 124/75; PULSE 64; RESP 16; TEMP 36.3; O2SAT 97
[2023-02-04] MEDS: cloNIDine HCL 0.1 MG TABLET 0.05 MG PO (08:44)
[2023-02-04] MEDS: FLUoxetine HCl 20 MG CAPSULE 80 MG PO (08:44)
[2023-02-04] MEDS: Thiamine HCL 100 MG TABLET PO (08:44)
[2023-02-04] MEDS: Propranolol HCL 10 MG TABLET PO (08:44)
[2023-02-04] MEDS: clonazePAM 1 MG TABLET PO (08:45)
[2023-02-04] MEDS: lamoTRIgine 100 MG TABLET 200 MG PO (08:45)
[2023-02-04] MEDS: Folic Acid 1 MG TABLET PO (08:45)
--- NOTE | 2023-02-04 08:46 | HO.PSYCHPN ---
Subjective Subjective Date of Service: 02/04/23 Reason For Visit: depressed/ SI Interim History: Reviewed with team. Pt plans to discharge today. He will attend [facility] and will attend out patient care with [facility] for psychotherapy and psychopharmacology. No current questions or concerns prior to discharge from patient or team. Medication Compliance: Yes Side effects from medications: No Attending Groups: Yes Review of Systems Acute medical concerns: No Medical Review of Systems: unchanged Mental Status Exam Mental Status Exam Patient Appearance: Appropriate Patient Orientation: Person, Place, Time and Situation Level of Consciousness: Alert Patient Behavior: Appropriate Mood Description: Appropriate Affect Description: Appropriate Patient Cognition Impaired: No Ability to Follow Directions: Good Speech Pattern: Spontaneous Speech Judgement: Good Diagnostics Vital Signs (24Hr): Vital Signs - 24 hr 02/03/23 09:38 02/03/23 18:00 Temperature 97 F 98.0 F Pulse Rate 83 79 Respiratory Rate 16 18 Blood Pressure 112/67 124/71 Pulse Oximetry 97 100 Oxygen Delivery Method Room Air Room Air BMI result Body Mass Index 33.5 Labs 01/27/23 17:29 02/03/23 07:49 Labs: Laboratory Results - last 48 hr 02/02/23 02/03/23 08:30 07:49 BUN 13 Creatinine 1.12 Estim Creat Clear Calc 112.1 Estimated GFR > 60 TSH 1.02 1.18 [place] 0.32 L Medications Medications Current Medications Acetaminophen (Acetaminophen 325 Mg Tablet) 650 mg PO Q6H PRN PRN Reason: Headache/Pain Mild Scale (1-3) Last Admin: 02/03/23 19:33 Dose: 650 mg Al Hydroxide/Mg Hydroxide (Magnesium Hydrox/Alum Hydrox 30 Ml Oral.Susp) 30 ml PO Q6H PRN PRN Reason: Heartburn/Nausea Clonazepam (Clonazepam 1 Mg Tablet) 1 mg PO BID [facility] Last Admin: 02/04/23 08:45 Dose: 1 mg Clonidine HCl (Clonidine Hcl 0.1 Mg Tablet) 0.05 mg PO BID [facility]; Protocol Last Admin: 02/04/23 08:44 Dose: 0.05 mg Fluoxetine HCl (Fluoxetine Hcl 20 Mg Capsule) 80 mg PO DAILY [facility] Last Admin: 02/04/23 08:44 Dose: 80 mg Folic Acid (Folic Acid 1 Mg Tablet) 1 mg PO DAILY [facility] Last Admin: 02/04/23 08:45 Dose: 1 mg Hydroxyzine HCl (Hydroxyzine Hcl 25 Mg Tablet) 25 mg PO Q6H PRN PRN Reason: Anxiety Lamotrigine (Lamotrigine 100 Mg Tablet) 200 mg PO BID [facility] Last Admin: 02/04/23 08:45 Dose: 200 mg [place] Carbonate ([place] Carbonate Er 450 Mg Tablet.Er) 450 mg PO BEDTIME [facility] Last Admin: 02/03/23 19:35 Dose: 450 mg Magnesium Hydroxide (Milk Of Magnesia 30 Ml Oral.Susp) 30 ml PO DAILY PRN PRN Reason: Constipation Last Admin: 02/03/23 14:03 Dose: 30 ml Nicotine (Nicotine 21 Mg Patch.Td24) 21 mg TRANSDERMA DAILY PRN PRN Reason: smoking cessation Nicotine Polacrilex (Nicotine Polacrilex 2 Mg Gum) 4 mg BUCCAL Q2H PRN PRN Reason: Nicotine Cravings Last Admin: 01/30/23 12:15 Dose: 4 mg Olanzapine (Olanzapine 2.5 Mg Tablet) 2.5 mg PO TID PRN PRN Reason: Insomnia/anxiety Olanzapine (Olanzapine 5 Mg Tablet) 5 mg PO BEDTIME [facility] Last Admin: 02/03/23 19:34 Dose: 5 mg Propranolol HCl (Propranolol Hcl 10 Mg Tablet) 10 mg PO BID [facility]; Protocol Last Admin: 02/04/23 08:44 Dose: 10 mg Thiamine HCl (Thiamine Hcl 100 Mg Tablet) 100 mg PO DAILY [facility] Last Admin: 02/04/23 08:44 Dose: 100 mg Trazodone HCl (Trazodone Hcl 50 Mg Tablet) 50 mg PO BEDTIME MRX1 PRN PRN Reason: Insomnia Trazodone HCl (Trazodone Hcl 100 Mg Tablet) 100 mg PO BEDTIME [facility] Last Admin: 02/03/23 19:33 Dose: 100 mg Allergies Allergies Allergy/AdvReac Type Severity Reaction Status Date / Time mirtazapine [MIRTAZAPINE] Allergy Intermediate UNKNOWN Verified 01/27/23 17:42 sulfamethoxazole Allergy Unknown RASH Verified 01/27/23 17:42 [From BACTRIM] trimethoprim [From BACTRIM] Allergy Unknown RASH Verified 01/27/23 17:42 Assessment & Plan Assessment & Plan (1) MDD (major depressive disorder), recurrent episode, severe: Qualifiers: Psychotic features: without psychotic features Qualified Code(s): F33.2 - Major depressive disorder, recurrent severe without psychotic features Status: Acute Code(s): F33.2 - Major depressive disorder, recurrent severe without psychotic features (2) Alcohol abuse: Status: Acute Code(s): F10.10 - Alcohol abuse, uncomplicated (3) Tachycardia: Status: Resolved Code(s): R00.0 - Tachycardia, unspecified Plan Patient is a 42-year-old male with history of depression, anxiety and alcohol abuse who presents for ongoing depression that has worsened recently and become suicidal. -chronic depression only partially treated with medication; patient has been on current regimen for years (Prozac 80 mg, Zyprexa 10 mg and Lamictal 200 mg b.i.d.; need Zyprexa for sleep) -patient denies any history at all of any manic behaviors or episodes; he is not sure why bipolar disorder is listed in his history. That said, Patient's sister does have bipolar disorder, patient reports having felt better when started on lithium, and has a history of refractory depression only partially treated with SSRI/SNRI. Warehouse Receiving Clerk discussed that there is an outside chance patient may have a touch of bipolar depression even without any obvious manic episode (patient has been on Zyprexa and Lamictal for least 5 years). Patient remains depressed even when sober -discussed medication management. At this time patient is anxious about potential risks/side effects of lithium which were discussed. Instead he rather retry Wellbutrin. He is anxious about the possibility of serotonin syndrome as well as tachycardia since he has a history of both; however he feels that the potential benefit outweighs the risk and would like to start Wellbutrin -OCD discussed him patient denies any overt symptoms Hospital course: 01/30 patient changed his mind and decided he would rather try lithium, remembering the 2 times he has been on it, feeling better both times. Feels that the risk of side effects is worth it and agrees to discontinue Wellbutrin 01/31 Met with patient; discussed with team Patient reports that he is doing better. Slept well last night, feels better overall. More hopeful. Tolerating medications well. Discussed medication management and since lithium seem to help with insomnia, patient agrees to see if he can still sleep well with a lower dose of Zyprexa. Will try Zyprexa 7.5 mg with a 2.5 mg as a p.r.n. if needed for insomnia. Patient reports 70 lb weight gain over the years on Zyprexa and would be happy to see if he can do okay with less dose. 02/01 tolerating medications well. Will lower Zyprexa further to 5 mg to see if he can still sleep on lower dose; patient has had considerable weight gain on this medication. Discussed how it also acts as a mood stabilizer and synergistically with Prozac for depression which patient will keep in mind. 02/02 remains doing much better, no depression, no SI, hopeful and optimistic. Tolerating [place]; feeling ready to return to community. Pt not in imminent risk for harm to self or others and team engaged in dispo planning. 02/03 continue tx. d/c on 02/04. 02/04/23 Discharge to [facility] and out patient care today. Plan: CV Q 15 minutes checks DC Wellbutrin Continue [place] CR 450mg qhs; was on it a few months ago and 2013 and found it helpful -labs orderded Continue Prozac 80 mg continue Zyprexa 5 mg q.h.s. Zyprexa 2.5mg as prn for insomnia Continue Trazodone 100 mg scheduled. Continue Lamictal 200 mg b.i.d. Continue clonidine, clonazepam, propranolol Patient only drink for 1 day prior to this admission, following a month of sobriety and is not in need of detox Reason for continued inpatient stay Substantial Risk for: stable for discharge Time Spent With Patient Time: Total time managing care of this patient today ____ minutes.
--- NOTE | 2023-02-27 16:24 | PM.PSYDC ---
DS: Providers Provider Date of Service: 02/04/23 Date of admission: 01/28/23 11:32 Date of discharge: 02/04/23 Primary care physician: Unknown Physician Attending physician on admission: Ken Bonilla Discharging clinician: Zara Tejeda DS: Diagnosis Discharge Diagnosis (1) MDD (major depressive disorder), recurrent episode, severe: Status: Acute (2) Alcohol abuse: Status: Acute (3) Tachycardia: Status: Resolved DS: Medications Discharge Medications Home Medications: Home Medications Medication Instructions Recorded Confirmed clonazepam 1 mg tablet 1 mg PO BID 10/27/22 01/27/23 clonidine HCl 0.1 mg tablet 0.05 mg PO BID 10/27/22 01/27/23 propranolol 10 mg tablet 10 mg PO BID 10/27/22 01/27/23 lamotrigine 200 mg tablet 200 mg PO BID 01/27/23 01/27/23 Previous Rx's Medication Instructions Recorded fluoxetine 40 mg capsule 80 mg (2 x 40 mg) PO DAILY #60 caps 08/02/22 lithium carbonate 450 mg 450 mg PO BEDTIME 30 days #30 tabs 02/03/23 tablet,extended release nicotine (polacrilex) 2 mg gum 4 mg buccal Q2H PRN Nicotine 02/03/23 Cravings 30 days #100 ea olanzapine 5 mg tablet See Rx Instructions .Route 02/03/23 .COMPLEX #45 tabs trazodone 100 mg tablet 100 mg PO BEDTIME PRN insomnia 30 02/03/23 days #100 tabs Mental Status Exam Mental Status Exam Patient Appearance: Appropriate Patient Orientation: Person, Place, Time and Situation Level of Consciousness: Alert Patient Behavior: Appropriate Mood Description: Appropriate Affect Description: Appropriate Patient Cognition Impaired: No Ability to Follow Directions: Good Speech Pattern: Spontaneous Speech Judgement: Good DS: Summary Hospital Course Hospital Course: HPI: Patient is a 42-year-old male with history of depression, anxiety and alcohol abuse who presents for ongoing depression that has worsened recently and become suicidal. Hospital course: On admission, patient depressed but SI soon resolved. Initially patient wanted to retry Wellbutrin. Patient discussed his history in further detail: -chronic depression only partially treated with medication; patient has been on current regimen for years (Prozac 80 mg, Zyprexa 10 mg and Lamictal 200 mg b.i.d.; need Zyprexa for sleep) -patient denies any history manic behaviors or episodes; however Patient's sister had bipolar disorder and once when patient was started on lithium, his mood improved. He has a history of refractory depression only partially treated with SSRI/SNRI. Sticker Hand discussed that there is an outside chance patient may have a touch of bipolar depression even without any obvious manic episode (patient has been on Zyprexa and Lamictal for least 5 years). -Patient remains depressed even when sober -patient changed his mind and decided he would rather try lithium, remembering the 2 times he has been on it, feeling better both times. Feels that the risk of side effects is worth it and agrees to discontinue Wellbutrin Patient was started on lithium and Patient reports that he is doing better. Started sleeping well and mood improved. More hopeful. Tolerating medications well. Discussed medication management and since lithium seem to help with insomnia, patient agrees to see if he can still sleep well with a lower dose of Zyprexa which was affective (agreed to remain on Zyprexa for while; Discussed how it also acts as a mood stabilizer and synergistically with Prozac for depression which patient will keep in mind). Patient's mood continued to improve and his affect brightened. He remained in good behavioral and impulse control on the unit, appropriate with peers and staff. Patient Remain doing much better, depression fully resolved, no SI, and he became hopeful and optimistic. Continued Tolerating [place]; feeling ready to return to community. Pt not in imminent risk for harm to self or others and team engaged in dispo planning. Time spent discussing smoking cessation with patient: 3 to 10 minutes Status at Discharge Functional status at discharge: independent ambulation Overall status at discharge: patient is back to baseline Time Spent with Patient Time attestation: Total time managing care of this patient today ____ minutes. Time spent: Less than 30 minutes Discharge Plan Discharge Anticipated Discharge Date/Time: 02/04/23 11:00 Patient Disposition: Home, Self-Care Discharge Diagnosis: MDD, recurrent, severe in full remission (r/o bipolar) Referrals: [facility] partial hospitalization program (PHP) [Other] - 02/27/23 8:00 am (PHP Intake ) [facility]: Jaylin Fay [Other] - 02/27/23 1:00 pm (Hospital discharge appointment with psychiatrist) Ana Lilia Mcfarlane (therapist): [facility] [Other] - 02/07/23 11:00 am (Hospital Discharge appointment with therapist Appointment can be tele-health or if you prefer call therapist and let them know you would want to meet in person.) Quan Baker MD [Physician] - 02/09/23 2:40 pm (appointment is telehealt) Discharge Medications: New nicotine (polacrilex) 2 mg Gum 4 mg buccal Q2H PRN (Reason: Nicotine Cravings) 30 Days Qty: 100 0RF lithium carbonate 450 mg Tablet Extended Release 450 mg PO BEDTIME 30 Days Qty: 30 1RF Continued fluoxetine 40 mg capsule 80 mg PO DAILY Qty: 60 0RF clonazepam 1 mg tablet 1 mg PO BID propranolol 10 mg tablet 10 mg PO BID clonidine HCl 0.1 mg tablet 0.05 mg PO BID lamotrigine 200 mg Tablet 200 mg PO BID Changed olanzapine 5 mg tablet See Rx Instructions .ROUTE .COMPLEX Qty: 45 1RF Rx Instructions: take 1 tab at bedtime; may take 1 additional tab as needed for continued insomnia trazodone 100 mg tablet 100 mg PO BEDTIME PRN (Reason: insomnia) 30 Days Qty: 100 1RF Discharge Orders: Discharge Order (Routine); Ordered 02/04/23 Ordered By: Ken Bonilla Diet: Regular diet Activity on Discharge: As tolerated Stand Alone Forms: Patient Portal Discharge page, Community Support Care Plan Goals: Maintain mood and safe behaviors Take medications as prescribed Continue to pursue sobriety Practice coping skills Continue with outpatient providers and reach out to them as needed Health Concerns: Mood stability and behaviors Sobriety Plan of Treatment: Follow up with your PCP, psychiatric provider and other outpatient providers regarding above concerns Take medications as prescribed Assessment: Risk assessment at time of discharge:? Patient was interviewed prior to discharge and found to be fully oriented and without any SI or HI. Patient has insight and demonstrates good judgment in terms of wanting to pursue treatment. Patient is not in imminent risk of harm to self or others and has a safety plan that includes presenting to the closest ER or calling 911 if feeling unsafe.? Patient has been observed closely by nursing and unit staff throughout admission; patient has not engaged in any behaviors that suggest dangerousness to self or others and has demonstrated appropriate behaviors and impulse control Discharge Date/Time: 02/04/23 11:49
== END 2023-02-04 11:49 | disposition home or self-care (01) | DRG 885 ==
LOC: HO.ED 18:59 → HO.PM5 01-28 11:42
PROVIDERS: Admitting Provider Psychiatry & Neurology Psychiatry; Emergency Provider Emergency Medicine; Visit Provider Psychiatry & Neurology Psychiatry
DX: F33.2 Major depressive disorder, recurrent severe without psychotic features (principal); R45.851 Suicidal ideations; F10.10 Alcohol abuse, uncomplicated; F17.210 Nicotine dependence, cigarettes, uncomplicated; Z20.822 Contact with and (suspected) exposure to COVID-19; Y90.6 Blood alcohol level of 120-199 mg/100 ml; Z71.6 Tobacco abuse counseling; Z23 Encounter for immunization; Z79.899 Other long term (current) drug therapy
CPT/HCPCS: 36415; 80053; 80061; 80143; 80178; 80179; 80307; 81003; 82565; 83036; 84443; 84520; 85025; 87635; 90686; 93005; 94660; 99285; S9485

== ENCOUNTER → 2023-01-28 11:32 | Outpatient (BNV) | payer MEDICARE, MEDICAID, SELFPAY | PROVIDERS: Admitting Provider Psychiatry & Neurology Psychiatry; Emergency Provider Emergency Medicine; Visit Provider Psychiatry & Neurology Psychiatry | DX: F33.2 Major depressive disorder, recurrent severe without psychotic features (principal); F10.10 Alcohol abuse, uncomplicated; R00.0 Tachycardia, unspecified | CPT/HCPCS: 90792; 99231; 99232; 99238; 99499 ==

== ENCOUNTER 2023-02-28 09:15 | Outpatient (RCR) | payer MEDICARE, MEDICAID, SELFPAY ==
--- NOTE | 2023-02-28 11:11 | HO.PS.ADMBH ---
HPI Date of Service: 02/28/23 Chief Complaint: b Sources of Information: patient interviewed, chart reviewed and crisis/core team assessment reviewed HPI Narrative: Tahir is a 42-year-old white, single, disabled man who starting partial hospital program. He has a longstanding history of anxiety, panic attacks, going back to age 9 after his father committed suicide. He also has had the depression for many years, accompanied by classic symptoms. He has had over 10 hospitalizations, the last 1 was about a month ago at [facility]. He did have a period of alcohol abuse, starting 8 years ago and has been alcohol free for over a month. He states that there were brief periods of very heavy use but otherwise low to medium amount. Currently he is on Prozac 80 mg for 8 years, Klonopin 1 mg b.i.d., clonidine 0.1 mg b.i.d., Zyprexa 10 mg q.h.s. for 7 years and Lamictal 200 mg b.i.d. for 5 years. He goes to [facility] and has a therapist and a prescriber there. He has had suicidal ideations and some episodes of cutting and contemplating about overdosing but he has never done that. No other substance use or abuse. He also has history of obsessive-compulsive symptoms Past Psychiatric History: Hospital stays: Last admission to spring 2022. IN 2013 He had ECT . has had at least 3 hosps. also has done PHP at least once, which he found helpful, and some [facility] stays. no h/o suicide attempts (but did place a plastic bag over his head during [facility] stay once). h/o SIB - cutting. has required stitches in the past. also slapping himself in the face. Therapist is HOANG Pang. Psychiatrist is HOANG Sanchez. HISTORY OF SEROTONIN SYNDROME Treatment trials: ECT: Said after 6 sessions had body numbness; feels that memory has not been the same since Serotonin syndrome on Zoloft and mirtazapine [place]: Said it made him feel better but his outpatient provider discontinued it saying he did not need it Effexor, Zoloft, Luvox, Wellbutrin (only on for a few weeks but was worried about increased heart rate so discontinued) Depakote: [place] sedated [facility] Medical History (Updated 02/28/23 @ 08:45 by Daylin Kaufman RN) Sleep apnea MDD (major depressive disorder), recurrent episode, severe Alcohol use disorder, mild, in controlled environment, abuse Transaminitis Tachycardia HTN (hypertension) Family History: Father committed suicide. alcohol use disorder. Aunt alcohol use disorder sister - bipolar disorder Cousin completed suicide Social History: Lived with his mother. Mother last year 10/29/21 youngest of 4 children. father suicided when pt was 9 yo. 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 single. No children. Substance History: Alcohol abuse Trauma History: Father's suicide when patient was 9 years old Meds/Allergies Meds Home Medications Medication Instructions Recorded Confirmed Type clonazepam 1 mg tablet 1 mg PO BID 10/27/22 01/27/23 History clonidine HCl 0.1 mg tablet 0.05 mg PO BID 10/27/22 01/27/23 History propranolol 10 mg tablet 10 mg PO BID 10/27/22 01/27/23 History lamotrigine 200 mg tablet 200 mg PO BID 01/27/23 01/27/23 History Allergies Allergies Allergy/AdvReac Type Severity Reaction Status Date / Time mirtazapine [MIRTAZAPINE] Allergy Intermediate UNKNOWN Verified 01/27/23 17:42 sulfamethoxazole Allergy Unknown RASH Verified 01/27/23 17:42 [From BACTRIM] trimethoprim [From BACTRIM] Allergy Unknown RASH Verified 01/27/23 17:42 Mental Status Exam Mental Status Exam Narrative: In today's visit he is alert, oriented and pleasant. Normal speech. Good eye contact. Affect is appropriate and subdued. No signs of psychosis but states that he used to get paranoid around feeling very anxious, feeling that his food was being poisoned Nasir cetera. He denies any of those symptoms currently. No current suicidal or homicidal ideations. Cognitively he is intact. Judgment is intact Assessment & Plan Assessment & Plan (1) MDD (major depressive disorder), recurrent episode, severe: Status: Acute Qualifiers: Psychotic features: without psychotic features Qualified Code(s): F33.2 - Major depressive disorder, recurrent severe without psychotic features Code(s): F33.2 - Major depressive disorder, recurrent severe without psychotic features Plan He will start partial hospital program. He will continue his current medications Patient educated on: diagnosis, medication risk/benefits and substance abuse Certification I certify that partial hospital treatment is medically necessary due to the symptoms and problems resulting from the patient's mental illness and the failure to treat the patient at the partial hospital level of care would likely result in the patient requiring inpatient psychiatric care which could not be prevented at a less intensive level of care. Time Spent With Patient Time: Total time managing care of this patient today45 ____ minutes.
[2023-02-28 12:56] VITALS: BP 124/72; PULSE 64; TEMP 37.1
[2023-02-28 13:00] VITALS: BMI 34.6
--- NOTE | 2023-02-28 13:48 | PC.ADMIT ---
Patient is a 42 year old male who was referred to [facility] by [facility] inpatient behavioral health unit where he was admitted for increased depression with SI and plan to overdose on his medications in addition to ETOH use. Patient initially came to the ER looking for help as his family encouraged him to go to the ER as they were concernted about him. Patient has a long history of ETOH use. Reports longest period of sobriety is 7 months. BAL in the ER was 175. Patient lives alone in an apartment however is looking for a smaller more affordable apartment. He reports his sisters are very supportive. 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 Tahir is alert and oriented x4. Calm and cooperative. Presented with depressed mood and affect. Denied SI or thoughts to harm himself. Medications reconciled with patient and inpatient medical record. He stated he is taking medications as prescribed and his outside provider did not make any changes to his medications since discharge. I gave Tahir a copy of his safety plan and I reviewed the plan with betty
--- NOTE | 2023-03-03 09:34 | HO.PHP ---
The client called on 06/01/22 . He states that he thinks that this program is not a good fit and he will not be returning. He has outpatient providers
== END 2023-02-28 23:59 | disposition home or self-care (01) ==
LOC: HO.PHPA 09:15
PROVIDERS: Visit Provider Psychiatry & Neurology Psychiatry
DX: F33.2 Major depressive disorder, recurrent severe without psychotic features (principal); Z79.899 Other long term (current) drug therapy
CPT/HCPCS: 90791; 90853

== ENCOUNTER → 2023-02-28 09:15 | Outpatient (BNV) | payer MEDICARE, MEDICAID, SELFPAY | PROVIDERS: Visit Provider Psychiatry & Neurology Psychiatry | DX: F33.2 Major depressive disorder, recurrent severe without psychotic features (principal) | CPT/HCPCS: 90792 ==

== ENCOUNTER 2023-04-03 06:06 | Inpatient (IN) | payer MEDICARE, MEDICAID, SELFPAY ==
--- NOTE | 2023-04-03 | ECG_ITS ---
Test Reason : PALPITATION Blood Pressure : / mmHG Vent. Rate : 076 BPM Atrial Rate : 076 BPM P-R Int : 162 ms QRS Dur : 094 ms QT Int : 412 ms P-R-T Axes : 041 -16 021 degrees QTc Int : 463 ms Normal sinus rhythm RSR' or QR pattern in V1 suggests right ventricular conduction delay Nonspecific ST and T wave abnormality Abnormal ECG When compared with ECG of 28-JAN-2023 09:45, ST no longer depressed in Lateral leads Referred By: Generic ED Physician Electronically Signed By:JOSE ANGEL MAGANA MD
[2023-04-03 06:15] VITALS: BP 182/104; PULSE 79; PULSE 86; RESP 14; O2SAT 98; BMI 36.0
[2023-04-03 06:23] VITALS: BP 143/88; PULSE 76; RESP 15; TEMP 36.9; O2SAT 98
--- NOTE | 2023-04-03 06:38 | PC.NURSE ---
pt RAN from home reporting anxiety since 12am. pt reports not drinking for one week and having a drink of whiskey when he woke up and felt he could not remember anything at 1am which caused him to have a panic attack. pt reports when waking up at 1am he felt like he was confused and wanted to cut himself, he now denies any self harm, SI or HI. pt reports feeling heart palpitations but denies chest pain, nausea and vomiting. pt normal sinus on tele 79-80. credit charge authorizer and provider aware of pt currently denying SI/HI, no sitter needed at this time.
--- NOTE | 2023-04-03 07:27 | ED_ITS ---
HPI - General Adult General Chief complaint: Psychiatric Symptoms Stated complaint: anxiety Time Seen by Provider: 04/03/23 06:59 Source: patient Mode of arrival: EMS Limitations: no limitations History of Present Illness HPI narrative: THIS IS A 42 YEARS OLD MALE WITH HISTORY OF ALCOHOL ABUSE, ANXIETY AND DEPRESSION PRESENTED TO THE EMERGENCY DEPARTMENT COMPLAINING PANIC ATTACK AND ANXIETY. HE STATES THAT HE WAS DRINKING LAST NIGHT DID NOT TAKE HIS ANXIETY MEDICATION AND HIS MORNING MEDS Onset (ago): day(s) (1) Radiation: non-radiation Severity: moderate Relieving factors: none Exacerbating factors: none Treatments prior to arrival: none Related Data Home Medications Medication Instructions Recorded Confirmed clonazepam 1 mg tablet 1 mg PO BID 10/27/22 04/03/23 clonidine HCl 0.1 mg tablet 0.01 mg PO BID 10/27/22 04/03/23 propranolol 10 mg tablet 10 mg PO BID 10/27/22 04/03/23 olanzapine 5 mg tablet 10 mg PO BEDTIME 04/03/23 04/03/23 trazodone 50 mg tablet 50 mg PO BEDTIME 04/03/23 04/03/23 Previous Rx's Medication Instructions Recorded fluoxetine 40 mg capsule 80 mg (2 x 40 mg) PO DAILY #60 caps 08/02/22 nicotine (polacrilex) 2 mg gum 4 mg buccal Q2H PRN Nicotine 02/03/23 Cravings 30 days #100 ea Allergies Allergy/AdvReac Type Severity Reaction Status Date / Time mirtazapine [MIRTAZAPINE] Allergy Intermediate UNKNOWN Verified 01/27/23 17:42 sulfamethoxazole Allergy Unknown RASH Verified 01/27/23 17:42 [From BACTRIM] trimethoprim [From BACTRIM] Allergy Unknown RASH Verified 01/27/23 17:42 Review of Systems 2 Constitutional: Constitutional: Reports no additional constitutional complaints Cardiovascular: Cardiovascular: Reports no additional cardiovascular complaints and Reports dyspnea Respiratory: Respiratory: Reports dyspnea and Reports wheezing Allergic/Immunologic: Allergic/Immunologic: Reports wheezing PMFSH Past Medical History Medical History Sleep apnea MDD (major depressive disorder), recurrent episode, severe Alcohol use disorder, mild, in controlled environment, abuse Transaminitis Tachycardia HTN (hypertension) Social History Social History Household Members: None Housing: Apartment Do you presently have visiting nurse or other home services: No Alcohol intake: current Alcohol intake frequency: 3 or more drinks per day Alcohol type: hard liquor Patient Tobacco Use Status: Current everyday Tobacco user Tobacco use type: Cigarette Cigarette Packs Per Day: 1 Cigarettes Per Day: 10 Years Smoked: 14 Smoked in Last 30 Days: Yes e-Cigarette/Vaping Use: Currently Using Second Hand Smoke Exposure: No Use of substances other than those prescribed or required for medical reasons: No Advance Directives: No Advance Directives Information Provided: No service: No Sexual orientation: Decline to Answer Physical Exam ED Vital Signs: Vital Signs - 24 hr 04/03/23 06:15 04/03/23 06:23 04/03/23 07:29 Temperature 98.5 F Pulse Rate 79 76 66 Respiratory Rate 14 15 18 Blood Pressure 143/88 H 147/83 H Pulse Oximetry 98 98 97 Oxygen Delivery Method Room Air Room Air Room Air 04/03/23 09:58 Temperature Pulse Rate 86 Respiratory Rate 13 Blood Pressure 132/83 Pulse Oximetry 96 Oxygen Delivery Method Room Air BMI result Body Mass Index 36.0 Const General: cooperative, comfortable, well developed, alert and awake Nutritional Appearance: average body habitus Orientation/consciousness: patient oriented x3 Limitations: no limitations HENMT Head: Yes normal to inspection General nose exam: Normal external nose present Face and sinus: Yes normal facial exam Mouth: Normal oral and palatal mucosa present Neck Neck: Yes normal visual inspection and Yes full ROM Chest Chest palpation & inspection: normal inspection of the chest Resp Effort & Inspection: normal respiratory effort and able to speak in complete sentences Auscultation: clear to auscultation bilaterally Cardio Jugular venous distension: no JVD Rate: regular rate Rhythm: regular rhythm GI Inspection: Yes normal to inspection Palpation (GI): Soft to palpation, not firm and nontender Skin General skin exam: no rashes or lesions noted, elasticity normal and turgor normal Lesions: no lesions Rashes: no rashes Neuro General: patient oriented x3 Course Reevaluation(s) Reevaluation #1: waiting for crisis eval Time: 16:24 Medications Administered Discontinued Medications Generic Name Dose Route Start Last Admin Trade Name Freq PRN Reason Stop Dose Admin Clonazepam 1 mg 04/03/23 07:38 04/03/23 08:06 Clonazepam 1 Mg Tablet PO 04/03/23 07:39 1 mg ONCE ONE Administration Clonidine HCl 0.1 mg 04/03/23 07:11 04/03/23 07:31 Clonidine Hcl 0.1 Mg Tablet PO 04/03/23 07:12 0.1 mg ONCE ONE Administration Protocol Fluoxetine HCl 80 mg 04/03/23 07:11 04/03/23 07:31 Fluoxetine Hcl 20 Mg Capsule PO 04/03/23 07:12 80 mg ONCE ONE Administration Propranolol HCl 10 mg 04/03/23 07:16 04/03/23 07:32 Propranolol Hcl 10 Mg Tablet PO 04/03/23 07:17 10 mg ONCE ONE Administration Protocol Medical Decision Making Medical Decision Making [facility] Narrative: PATIENT PRESENTED WITH A PANIC ATTACK ANXIETY HE HAS HISTORY OF ALCOHOL ABUSE WILL GIVE HE HAS MORNING MEDICATIONS INCLUDING CLONAZEPAM AND REASSESSED Differential Diagnosis Differential Diagnoses: The differential diagnosis associated with the presentation includes ANXIETY/PANIC ATTACK/A ALCOHOL ABUSE/ALCOHOL WITHDRAWAL Admission/Observation Consideration of admission/observation: Escalation of care including admission/observation considered Lab Data 04/03/23 12:19 04/03/23 12:19 Labs: Lab Results 04/03/23 04/03/23 Range/Units 09:28 12:19 WBC 8.2 (4.8-10.8) X10*3/uL RBC 5.43 (4.60-5.80) X10*6/uL Hgb 17.3 (14.0-18.0) g/dl Hct 48.7 (42.0-52.0) % MCV 89.7 (80.0-98.0) fL MCH 31.9 (27.0-33.0) pg MCHC 35.5 (31.0-36.0) g/dl RDW 13.5 (11.0-16.0) % Plt Count 228 (160-400) X10*3/uL MPV 9.1 L (9.4-12.4) fL Immature Gran % (Auto) 0.2 (0.0-0.4) % Neut % (Auto) 74.0 H (45-73) % Lymph % (Auto) 15.0 L (20-40) % Butler % (Auto) 9.4 (2-11) % Eos % (Auto) 0.7 (0-4) % Baso % (Auto) 0.7 (0-2) % Lymph # (Auto) 1.2 (1.2-4.9) X10*3/uL Butler # (Auto) 0.8 (0.1-1.2) X10*3/uL Eos # (Auto) 0.1 (0.0-0.4) X10*3/uL Baso # (Auto) 0.1 (0.0-0.2) X10*3/uL Abs Immat Gran (auto) 0.02 (0.00-0.03) X10*3/uL Absolute Neuts (auto) 6.1 (2.0-8.3) x10*3/uL Absolute Nucleated RBC 0.000 (0.0-0.012) X10*3/uL Nucleated RBC % (auto) 0.0 (0.0-0.2) /100WBC Sodium 139 (135-145) mmol/L Potassium 4.1 (3.3-5.1) mmol/L Chloride 104 (96-108) mmol/L Carbon Dioxide 23 (22-29) mmol/L Anion Gap 16 (12-20) BUN 10 (9-16) mg/dL Creatinine 0.97 (0.5-1.4) mg/dL Estim Creat Clear Calc 134.2 Estimated GFR > 60 Random Glucose 95 (60-115) mg/dL Calcium 10.1 (8.4-10.2) mg/dL Total Bilirubin 0.6 (0.0-1.0) mg/dL AST 114 H (5-37) U/L ALT 200 H (0-40) U/L Alkaline Phosphatase 112 (39-117) U/L Total Protein 8.0 (6.5-8.0) g/dL Albumin 5.0 (3.5-5.0) g/dL Urine Color Yellow Urine Appearance Clear Urine pH 7.0 (5.0-9.0) Ur Specific Cost 1.015 (1.005-1.025) Urine Protein Negative (Neg-Trace) mg/dL Urine Glucose (UA) Negative (Negative) mg/dL Urine Ketones 40 (Negative) mg/dL Urine Blood Negative (Negative) Urine Nitrite Negative (Negative) Ur Leukocyte Esterase Negative (Negative) Urine Opiates Screen Not Detected (Not Detect) Urine Fentanyl Screen Not Detected (Not Detect) Ur Barbiturates Screen Not Detected (Not Detect) Ur Phencyclidine Scrn Not Detected (Not Detect) Ur Amphetamines Screen Not Detected (Not Detect) U Benzodiazepines Scrn Not Detected (Not Detect) Urine Cocaine Screen Not Detected (Not Detect) U Marijuana (THC) Screen Not Detected (Not Detect) Ethyl Alcohol < 10 mg/dL Discharge Plan Discharge Clinical Impression: Anxiety, Depression, Alcohol abuse Patient Disposition: Still a Patient Prescriptions: No Action fluoxetine 40 mg capsule 80 mg PO DAILY Qty: 60 0RF clonazepam 1 mg tablet 1 mg PO BID propranolol 10 mg tablet 10 mg PO BID clonidine HCl 0.1 mg tablet 0.01 mg PO BID Patient Comments: Patient plans on picking up this prescription today. nicotine (polacrilex) 2 mg Gum 4 mg buccal Q2H PRN (Reason: Nicotine Cravings) 30 Days Qty: 100 0RF trazodone 50 mg tablet 50 mg PO BEDTIME olanzapine 5 mg tablet 10 mg PO BEDTIME Interventions: [place]-Suicide Risk Severity Scale Last Done: 04/03/23 06:19
[2023-04-03 07:29] VITALS: BP 147/83; PULSE 66; RESP 18; O2SAT 97
[2023-04-03] MEDS: cloNIDine HCL 0.1 MG TABLET PO ×2 (07:31→20:11)
[2023-04-03] MEDS: FLUoxetine HCl 20 MG CAPSULE 80 MG PO (07:31)
[2023-04-03] MEDS: Propranolol HCL 10 MG TABLET PO ×2 (07:32→20:10)
[2023-04-03] MEDS: clonazePAM 1 MG TABLET PO ×2 (08:06→20:10)
--- NOTE | 2023-04-03 08:53 | PC.NURSE ---
Spoke with sister, Lidia - who reports severe concerns for her brother. reports he has been drinking a lot and not making it to his GI appointments. [facility], rehab that pt was recently was at, pt reports he made contact with this facility and they have a 3 month wait list.
[2023-04-03 09:38] LABS: Appearance Urine Clear; Color Urine Yellow; Glucose Urine UA Negative (Negative); Leukocyte Esterase Urine Negative (Negative); Nitrite Urine Negative (Negative); Specific Gravity - Urine 1.015 (1.005-1.025); Urine Blood Negative (Negative); Urine Ketones 40 mg/dL (Negative); Urine Protein Negative (Neg-Trace)
[2023-04-03 09:51] LABS: Amphetamine Screen Urine Not Detected (Not Detect); Barbiturates, Urine Not Detected (Not Detect); Benzodiazepines Screen Urine Not Detected (Not Detect); Cannabinoid Screen Urine Not Detected (Not Detect); Cocaine Screen Urine Not Detected (Not Detect); Fentanyl, urine Not Detected (Not Detect); Opiate Screen Urine Not Detected (Not Detect); Phencyclidine Screen Urine Not Detected (Not Detect)
--- NOTE | 2023-04-03 09:57 | PC.NURSE ---
Recovery Team Benjamin in room to assess pt
[2023-04-03 09:58] VITALS: BP 132/83; PULSE 86; RESP 13; O2SAT 96
--- NOTE | 2023-04-03 10:20 | MHC.RECOVSUP ---
Addendum entered by Ellis Olivo 04/03/23 13:16: Bed search has been exhausted at this time. Original Note: Met with pt in ED8 who is here for psychiatric and CASSIE. Pt informs he was sober for 1 week and drank 1 pint last night. Pt reports being on and off with his sobriety like this for a long time and needs help. PT would like ATS or [facility], otherwise his sister will section 35 him. ATS bed search in process.
--- NOTE | 2023-04-03 12:04 | PC.NURSE ---
spoke with pt about plan for recovery. pt became tearful, visibly anxious, endorsing SI with a plan to slit his wrists . pt reports I just know if I go to detox now I'll just try to kill myself . MD Martinez made aware.
[2023-04-03 12:23] LABS: MANUAL DIFF FLAG NO
[2023-04-03 12:26] LABS: Basophils Absolute Auto 0.1 X10*3/uL (0.0-0.2); Basophils Percent Auto 0.7 % (0-2); Eosinophils Absolute Auto 0.1 X10*3/uL (0.0-0.4); Eosinophils Percent Auto 0.7 % (0-4); Hematocrit 48.7 % (42.0-52.0); Hemoglobin 17.3 g/dl (14.0-18.0); Imm Gran Abs Auto 0.02 X10*3/uL (0.00-0.03); Imm Gran Pct Auto 0.2 % (0.0-0.4); Lymphocytes Absolute Auto 1.2 X10*3/uL (1.2-4.9); Mean Corpuscular HGB Conc 35.5 g/dl (31.0-36.0); Mean Corpuscular Hemoglobin 31.9 pg (27.0-33.0); Mean Corpuscular Volume 89.7 fL (80.0-98.0); Mean Platelet Volume 9.1 fL (9.4-12.4); Monocytes Absolute Auto 0.8 X10*3/uL (0.1-1.2); Monocytes Percent Auto 9.4 % (2-11); Neutrophils Absolute Auto 6.1 x10*3/uL (2.0-8.3); Platelet Count 228 X10*3/uL (160-400); Red Blood Count 5.43 X10*6/uL (4.60-5.80); Red Cell Distribution Width 13.5 % (11.0-16.0); White Blood Count 8.2 X10*3/uL (4.8-10.8)
[2023-04-03 12:49] LABS: Alanine Aminotransferase 200 U/L (0-40); Alkaline Phosphatase 112 U/L (39-117); Anion Gap 16 (12-20); Aspartate Amino Transferase 114 U/L (5-37); Bilirubin Total 0.6 mg/dL (0.0-1.0); Blood Urea Nitrogen 10 mg/dL (9-16); Calcium 10.1 mg/dL (8.4-10.2); Carbon Dioxide 23 mmol/L (22-29); Chloride 104 mmol/L (96-108); Creatinine Clr Calc Pharmacy 134.2; Estimated Glomerular Filt Rate > 60; Ethanol < 10 mg/dL; Glucose Random 95 mg/dL (60-115); Potassium 4.1 mmol/L (3.3-5.1); Sodium 139 mmol/L (135-145)
--- NOTE | 2023-04-03 17:39 | PC.NURSE ---
Tahir was transferred to the POD from the main ED and reports not feeling safe in the context of having a relapse in drinking and not being able to get into detox. Tahir is advocating to be an inpatient admission. Denies HI/AVH. No behavioral concerns. Appetite good. Tahir is currently in his room resting and requested to be given his HS clonazepam as soon as I can have it .
--- NOTE | 2023-04-03 18:31 | PC.NURSE ---
Per Care Team Tahir is a dual diagnosis bed search.
--- NOTE | 2023-04-03 19:36 | PHA.MEDREC ---
Pharmacy Consult ? Medication Reconciliation Pharmacy has reviewed the medication reconciliation completed by Malathi. Rn reported that patient doctor took him off both lithium and bupropion then patient said stopped taking Lamictal, and now needs to be re-tirtrated up. Karlee Blandon, PharmD
[2023-04-03] MEDS: OLANZapine 10 MG TABLET PO (20:10)
[2023-04-03] MEDS: traZODone HCL 50 MG TABLET PO (20:10)
--- NOTE | 2023-04-03 20:14 | PC.NURSE ---
I assumed care of the pt at 1900. Pt is resting comfortably in bed at this time. Pt denies pain or discomfort at this time, does admit some thoughts of hurting himself throughout the day. Pt is currently A&Ox4, GCS 15, calm and cooperative. Pt medicated per JUL, comfort ensured. Pt waiting bed search at this time.
[2023-04-04 04:30] VITALS: BP 135/91; PULSE 91; RESP 19; O2SAT 96
[2023-04-04] MEDS: FLUoxetine HCl 20 MG CAPSULE 80 MG PO (07:21)
[2023-04-04] MEDS: cloNIDine HCL 0.1 MG TABLET PO ×2 (07:21→20:13)
[2023-04-04] MEDS: Propranolol HCL 10 MG TABLET PO ×2 (07:22→20:13)
[2023-04-04] MEDS: clonazePAM 1 MG TABLET PO ×2 (07:22→20:13)
--- NOTE | 2023-04-04 07:32 | PC.NURSE ---
PT IS A/O X 3 NO SOB/DAHLIA NOTED SPEAKS IN FULL SENTENCES. NO EDEMA NOTED. DENIES ANY SI/HI AT THIS TIME. DENIES ANY PAIN/DISC. PT ATE 100% OF BREAKFAST. PT AMB (I) GAIT STEADY. PT AWARE OF PLAN OF CARE. WILL CONTINUE TO MONITOR.
[2023-04-04 08:00] VITALS: RESP 16
[2023-04-04 08:03] LABS: COVID-19 Test Negative (Negative); IDNOW Serial# 08D9AD1C
[2023-04-04 10:03] VITALS: BP 120/67; PULSE 53; RESP 17; TEMP 36.2; O2SAT 92
[2023-04-04 10:14] VITALS: O2SAT 96
[2023-04-04 16:21] VITALS: BP 129/76; PULSE 69; RESP 16; TEMP 36.7; O2SAT 96
[2023-04-04 20:11] VITALS: BP 123/81; PULSE 56; RESP 16
[2023-04-04] MEDS: OLANZapine 10 MG TABLET PO (20:13)
[2023-04-04] MEDS: traZODone HCL 50 MG TABLET PO (20:13)
--- NOTE | 2023-04-04 20:42 | PC.ADMIT ---
PT is a 42 year old Serbian speaking male that arrived on this unit at 16:15 from the [facility] POD and was placed on 15 minute safety checks. Legal status: conditional voluntary. PT reports he called EMS after having a panic attack that lasted more than 6 hours. PT reports being diaphoretic with chest pains, palpitations and numbness in all limbs and was having flashbacks to his childhood when he learned his father completed suicide. PT reports he began to have suicidal thoughts after this. PT reports he drank the night before (Tuesday 04/03) after he disappointed his nephew. PT reports sobriety for 8 days prior to this. Prior to that he was heavily drinking daily. PT reports he has never experienced withdrawal symptoms from alcohol. Because I take Clonidine and Klonopin, I have never had issues with withdrawal . PT denies any illicit substance use (tox screen neg, including alcohol). PT reports he weaned himself off of Lamictal over a week's time with the last dose being about 7 days ago. He believes this may have triggered these events and hopes to get back on it. Per pt's report medical history includes HANS, HTN, and liver disease. He does use a CPAP at bedtime. PT is well known to [facility] and this unit as he has had multiple inpatient admissions. PT's goal is to voluntarily go into an intensive rehab/detox program as his sisters will be petitioning for a section 35 if he does not do this on his own. PT does have established providers whom he sees regularly as well as a [facility] worker. PT reports he lives alone and his housing is stable. PT is a current everyday smoker. NRT ordered and smoking cessation consult ordered. PT reports he already received the flu vaccine this season. Denies current SI/HI AH/VH and feels he can seek out staff if he has thoughts of suicide. Legals completed, safety tool and tx plan completed. VS stable at this time. PT laying in bed, respirations even and unlabored. Plan of care ongoing.
[2023-04-05 00:49] VITALS: PULSE 97; O2SAT 96
[2023-04-05] MEDS: Nicotine Polacrilex 2 MG GUM 4 MG BUCCAL ×2 (06:52→10:35)
[2023-04-05 08:22] VITALS: BP 122/71; PULSE 59; RESP 16; TEMP 36.5; O2SAT 98
[2023-04-05 08:54] LABS: Alanine Aminotransferase 169 U/L (0-40); Albumin Level 4.8 g/dL (3.5-5.0); Alkaline Phosphatase 92 U/L (39-117); Aspartate Amino Transferase 91 U/L (5-37); Bilirubin Direct 0.3 mg/dL (0.0-0.5); Bilirubin Total 1.1 mg/dL (0.0-1.0); Total Protein 7.6 g/dL (6.5-8.0)
[2023-04-05] MEDS: cloNIDine HCL 0.1 MG TABLET PO ×2 (08:59→20:15)
[2023-04-05] MEDS: clonazePAM 1 MG TABLET PO ×2 (08:59→20:16)
[2023-04-05] MEDS: Propranolol HCL 10 MG TABLET PO ×2 (08:59→20:13)
[2023-04-05] MEDS: FLUoxetine HCl 20 MG CAPSULE 80 MG PO (08:59)
--- NOTE | 2023-04-05 10:09 | P.HPPS_ITS ---
HPI Date of Service: 04/05/23 Chief Complaint: depression/SI Sources of Information: patient interviewed, chart reviewed and crisis/core team assessment reviewed HPI Subjective Notes: Frost Warning and Conditional Voluntary Narrative: Patient is a 42-year-old male with history of depression, anxiety/panic attacks, JESSICA and alcohol abuse, recently discharged from on 02/27/23 who presents again for continuing depression, anxiety and then SI, in the face of going off Lamictal and substance abuse. When patient last discharge he says he relapsed right away. Depression said in immediately. Patient got himself sober and stayed sober for the past 8 days however, he had a brief bout of abdominal pain and worried that perhaps Lamictal is hurting his liver so he discontinued it about 5 days ago; he continued to take his other medications as prescribed. Patient's depression worsened, became extremely anxious and relapsed on alcohol for 1 day, became suicidal and so self presents. Patient very much wants to get and stay sober but he finds it difficult to get himself to AA meetings due to depression;he explains that he plans to go but feels so unmotivated in the morning. Patient Agrees that on medication his mood can remain overall good enough but that alcohol relapse always brings about intense self-deprecating thoughts and the return of depression. Patient wants to restart Lamictal; also wants to get back on naltrexone which he said was very helpful for remain sober in the past. Past Psychiatric History: Hospital stays: Last admission to spring 2022. [place] 2013 He had ECT . has had at least 3 hosps. also has done PHP at least once, which he found helpful, and some [facility] stays. no h/o suicide attempts (but did place a plastic bag over his head during [facility] stay once). h/o SIB - cutting. has required stitches in the past. also slapping himself in the face. Therapist is HOANG Pang. Psychiatrist is HOANG Sanchez. HISTORY OF SEROTONIN SYNDROME Treatment trials: ECT: Said after 6 sessions had body numbness; feels that memory has not been the same since Serotonin syndrome on Zoloft and mirtazapine Lucien: Said it made him feel better but his outpatient provider discontinued it saying he did not need it Effexor, Zoloft, Luvox, Wellbutrin (only on for a few weeks but was worried about increased heart rate so discontinued) Depakote: [place] sedated Medical Evaluation Reviewed: Yes [facility] Medical History (Updated 04/07/23 @ 15:37 by Ken Bonilla MD) Sleep apnea MDD (major depressive disorder), recurrent episode, severe Alcohol use disorder, mild, in controlled environment, abuse Transaminitis Tachycardia HTN (hypertension) Family History: Father committed suicide when patient was 9 years old; father with alcohol use disorder. Aunt alcohol use disorder sister - bipolar disorder Cousin completed suicide Social History: Lived with his mother. Mother last year 10/29/21 youngest of 4 children. father suicided when pt was 9 yo. 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 single. No children. Substance History: Long history of alcohol abuse Trauma History: Father's suicide when patient was 9 years old Diagnostics Vital Signs (24Hr): Vital Signs - 24 hr 04/04/23 10:14 04/04/23 16:21 04/04/23 20:11 Temperature 98.1 F Pulse Rate 69 56 Respiratory Rate 16 16 Blood Pressure 129/76 123/81 Pulse Oximetry 96 96 Oxygen Delivery Method Room Air Room Air 04/05/23 08:22 Temperature 97.7 F Pulse Rate 59 Respiratory Rate 16 Blood Pressure 122/71 Pulse Oximetry 98 Oxygen Delivery Method Room Air BMI result Body Mass Index 36.0 Labs 04/03/23 12:19 04/03/23 12:19 Labs: Laboratory Results - last 48 hr 04/03/23 04/04/23 04/05/23 12:19 07:46 07:49 WBC 8.2 RBC 5.43 Hgb 17.3 Hct 48.7 MCV 89.7 MCH 31.9 MCHC 35.5 RDW 13.5 Plt Count 228 MPV 9.1 L Immature Gran % (Auto) 0.2 Neut % (Auto) 74.0 H Lymph % (Auto) 15.0 L [place] % (Auto) 9.4 Eos % (Auto) 0.7 Baso % (Auto) 0.7 Lymph # (Auto) 1.2 [place] # (Auto) 0.8 Eos # (Auto) 0.1 Baso # (Auto) 0.1 Abs Immat Gran (auto) 0.02 Absolute Neuts (auto) 6.1 Absolute Nucleated RBC 0.000 Nucleated RBC % (auto) 0.0 Sodium 139 Potassium 4.1 Chloride 104 Carbon Dioxide 23 Anion Gap 16 BUN 10 Creatinine 0.97 Estim Creat Clear Calc 134.2 Estimated GFR > 60 Random Glucose 95 Calcium 10.1 Total Bilirubin 0.6 1.1 H Direct Bilirubin 0.3 AST 114 H 91 H ALT 200 H 169 H Alkaline Phosphatase 112 92 Total Protein 8.0 7.6 Albumin 5.0 4.8 Ethyl Alcohol < 10 COVID-19 (COLE) Negative COVID-19 Clin Com See Note Meds/Allergies Meds Home Medications Medication Instructions Recorded Confirmed Type clonazepam 1 mg tablet 1 mg PO BID 10/27/22 04/03/23 History clonidine HCl 0.1 mg tablet 0.01 mg PO BID 10/27/22 04/03/23 History propranolol 10 mg tablet 10 mg PO BID 10/27/22 04/03/23 History olanzapine 5 mg tablet 10 mg PO BEDTIME 04/03/23 04/03/23 History trazodone 50 mg tablet 50 mg PO BEDTIME 04/03/23 04/03/23 History Allergies Allergies Allergy/AdvReac Type Severity Reaction Status Date / Time mirtazapine [MIRTAZAPINE] Allergy Intermediate UNKNOWN Verified 01/27/23 17:42 sulfamethoxazole Allergy Unknown RASH Verified 01/27/23 17:42 [From BACTRIM] trimethoprim [From BACTRIM] Allergy Unknown RASH Verified 01/27/23 17:42 Mental Status Exam Mental Status Exam Narrative: Pt is alert and oriented; behavior is cooperative, friendly and calm; patient is not in distress; dressed in casual attire, tattoos on arms, neck, scruffy but adequate hygiene; mood is described as good and affect congruent; eye contact appropriate; Speech is normal rate, volume and prosody and not pressured; no psychomotor agitation/retardation present; thought process is organized and goal directed; Thought content is on tx; otherwise pertinent to relevant topics and without any delusional content, paranoid ideations or grandiosity; denies any SI/HI. There is no evidence of perceptual disturbance. Patients insight and judgment impaired Assessment & Plan Assessment & Plan (1) MDD (major depressive disorder), recurrent episode, severe: Status: Acute Qualifiers: Psychotic features: without psychotic features Qualified Code(s): F33.2 - Major depressive disorder, recurrent severe without psychotic features Code(s): F33.2 - Major depressive disorder, recurrent severe without psychotic features (2) Obsessive compulsive disorder: Status: Acute Qualifiers: Obsessive-compulsive disorder type: unspecified Qualified Code(s): F 42.9 - Obsessive-compulsive disorder, unspecified Code(s): F42.9 - Obsessive-compulsive disorder, unspecified (3) Panic disorder: Status: Acute Code(s): F41.0 - Panic disorder [episodic paroxysmal anxiety] (4) Alcohol use disorder, severe, in early remission: Status: Acute Code(s): F10.21 - Alcohol dependence, in remission (5) Sleep apnea: Status: Acute Code(s): G47.30 - Sleep apnea, unspecified Plan Patient is a 42-year-old male with history of depression, anxiety/panic attacks, JESSICA and alcohol abuse, recently discharged from on 02/27/23 who presents again for continuing depression, anxiety and then SI, in the face of going off Lamictal and substance abuse. When patient last discharge he says he relapsed right away. Depression said in immediately. Patient got himself sober and stayed sober for the past 8 days however, he had a brief bout of abdominal pain and worried that perhaps Lamictal is hurting his liver so he discontinued it about 5 days ago; he continued to take his other medications as prescribed. Patient's depression worsened, became extremely anxious and relapsed on alcohol for 1 day, became suicidal and so self presents. Patient very much wants to get and stay sober but he finds it difficult to get himself to AA meetings due to depression;he explains that he plans to go but feels so unmotivated in the morning. Patient Agrees that on medication his mood can remain overall good enough but that alcohol relapse always brings about intense self-deprecating thoughts and the return of depression. Patient wants to restart Lamictal; also wants to get back on naltrexone which he said was very helpful for remain sober in the past. Plan: CV Q 15 minute checks Continue home medications Restart Lamictal 25 mg q.h.s. Restart naltrexone (discussed Antabuse however patient wants to restart naltrexone) Will recheck LFTs; trending down since admission but will recheck after starting naltrexone; possibly get on Vivitrol Team will discuss aftercare, CSS options Patient educated on: diagnosis, medication risk/benefits, substance abuse and therapeutic strategies Informed Consent: understands Reason for continued inpatient stay Substantial Risk for: rapid decompensation Statement Statement: I have reviewed the history and physical and performed a pertinent examination on my patient. No changes have occurred unless specified. If the History and Physical was not performed prior to admission, the Hospitalist's service will be consulted for completing the admission physical. Time Spent With Patient Time: Total time managing care of this patient today ____ minutes.
[2023-04-05] MEDS: Naltrexone HCl 50 MG TABLET PO (17:01)
[2023-04-05 20:10] VITALS: BP 110/66; PULSE 60; TEMP 35.6
[2023-04-05] MEDS: OLANZapine 10 MG TABLET PO (20:16)
[2023-04-05] MEDS: traZODone HCL 50 MG TABLET PO (20:16)
[2023-04-05] MEDS: lamoTRIgine 25 MG TABLET PO (20:16)
[2023-04-06 07:00] VITALS: BMI 33.9
[2023-04-06 08:11] VITALS: BP 122/70; PULSE 61; RESP 16; TEMP 36.2; O2SAT 95
[2023-04-06] MEDS: Amphetamine Mixed Salts 10 MG TABLET 5 MG PO (08:39)
[2023-04-06] MEDS: FLUoxetine HCl 20 MG CAPSULE 80 MG PO (08:39)
[2023-04-06] MEDS: Propranolol HCL 10 MG TABLET PO (08:40)
[2023-04-06] MEDS: clonazePAM 1 MG TABLET PO ×2 (08:40→20:10)
[2023-04-06] MEDS: cloNIDine HCL 0.1 MG TABLET PO (08:41)
[2023-04-06] MEDS: Naltrexone HCl 50 MG TABLET PO (08:41)
--- NOTE | 2023-04-06 09:49 | HO.PSYCHPN ---
Subjective Subjective Date of Service: 04/06/23 Reason For Visit: depression/SI Interim History: met with patient; discussed with team Mood a little better; no SI. Discussed his struggles with self-deprecating thoughts and how depression really overwhelms his motivation. Discussed again how patient will plan to go to an AA meeting in the morning, wants to but that morning will just feel so unmotivated and tired; he eventually he gives up trying to make himself go, feels worse about himself and depressive, alcohol issues recycle. Discussed options and patient has no history of other drug abuse. Discussed various medication options that might be helpful including adding Adderall which can augment antidepressant medication and help with both motivation and sleepiness. Tunneling Machine Operator discussed risks/side effects of this medication including but not limited to it exacerbating anxiety or causing tachycardia; patient reviewed all the medication an intervention trials he has had in the past and feels that if this was able to help him get to an AA meeting the potential benefit is worth the potential risk. Mental Status Exam Mental Status Exam Narrative: Pt is alert and oriented; behavior is cooperative, friendly and calm; patient is not in distress; dressed in casual attire, tattoos on arms, neck, scruffy but adequate hygiene; mood is described as ok and affect congruent; eye contact appropriate; Speech is normal rate, volume and prosody and not pressured; no psychomotor agitation/retardation present; thought process is organized and goal directed; Thought content is on tx; otherwise pertinent to relevant topics and without any delusional content, paranoid ideations or grandiosity; denies any SI/HI. There is no evidence of perceptual disturbance. Patients insight and judgment impaired but improving. Diagnostics Vital Signs (24Hr): Vital Signs - 24 hr 04/05/23 20:10 04/06/23 08:11 Temperature 96.1 F L 97.2 F Pulse Rate 60 61 Respiratory Rate 16 Blood Pressure 110/66 122/70 Pulse Oximetry 95 Oxygen Delivery Method Room Air BMI result Body Mass Index 33.9 Labs 04/03/23 12:19 04/03/23 12:19 Labs: Laboratory Results - last 48 hr 04/05/23 07:49 Total Bilirubin 1.1 H Direct Bilirubin 0.3 AST 91 H ALT 169 H Alkaline Phosphatase 92 Total Protein 7.6 Albumin 4.8 Medications Medications Current Medications Al Hydroxide/Mg Hydroxide (Magnesium Hydrox/Alum Hydrox 30 Ml Oral.Susp) 30 ml PO Q6H PRN PRN Reason: Heartburn/Nausea Amphetamine/Dextroamphetamine (Amphetamine Mixed Salts 10 Mg Tablet) 5 mg PO DAILY [facility] Last Admin: 04/06/23 08:39 Dose: 5 mg Clonazepam (Clonazepam 1 Mg Tablet) 1 mg PO BID [facility] Last Admin: 04/06/23 08:40 Dose: 1 mg Clonidine HCl (Clonidine Hcl 0.1 Mg Tablet) 0.1 mg PO BID [facility]; Protocol Last Admin: 04/06/23 08:41 Dose: 0.1 mg Fluoxetine HCl (Fluoxetine Hcl 20 Mg Capsule) 80 mg PO DAILY [facility] Last Admin: 04/06/23 08:39 Dose: 80 mg Hydroxyzine HCl (Hydroxyzine Hcl 25 Mg Tablet) 25 mg PO Q6H PRN PRN Reason: Anxiety Lamotrigine (Lamotrigine 25 Mg Tablet) 25 mg PO BEDTIME [facility] Last Admin: 04/05/23 20:16 Dose: 25 mg Magnesium Hydroxide (Milk Of Magnesia 30 Ml Oral.Susp) 30 ml PO DAILY PRN PRN Reason: Constipation Naltrexone HCl (Naltrexone Hcl 50 Mg Tablet) 50 mg PO DAILY [facility] Last Admin: 04/06/23 08:41 Dose: 50 mg Nicotine (Nicotine 21 Mg Patch.Td24) 21 mg TRANSDERMA DAILY PRN PRN Reason: smoking cessation Nicotine Polacrilex (Nicotine Polacrilex 2 Mg Gum) 4 mg BUCCAL Q2H PRN PRN Reason: Nicotine Cravings Last Admin: 04/05/23 10:35 Dose: 2 mg Nicotine Polacrilex (Nicotine Polacrilex 2 Mg Gum) 4 mg BUCCAL Q2H PRN PRN Reason: Nicotine Cravings Last Admin: 04/05/23 06:52 Dose: 4 mg Olanzapine (Olanzapine 10 Mg Tablet) 10 mg PO BEDTIME [facility] Last Admin: 04/05/23 20:16 Dose: 10 mg Propranolol HCl (Propranolol Hcl 10 Mg Tablet) 10 mg PO BID [facility]; Protocol Last Admin: 04/06/23 08:40 Dose: 10 mg Trazodone HCl (Trazodone Hcl 50 Mg Tablet) 50 mg PO BEDTIME [facility] Last Admin: 04/05/23 20:16 Dose: 50 mg Trazodone HCl (Trazodone Hcl 50 Mg Tablet) 50 mg PO BEDTIME MRX1 PRN PRN Reason: Insomnia Allergies Allergies Allergy/AdvReac Type Severity Reaction Status Date / Time mirtazapine [MIRTAZAPINE] Allergy Intermediate UNKNOWN Verified 01/27/23 17:42 sulfamethoxazole Allergy Unknown RASH Verified 01/27/23 17:42 [From BACTRIM] trimethoprim [From BACTRIM] Allergy Unknown RASH Verified 01/27/23 17:42 Assessment & Plan Assessment & Plan (1) MDD (major depressive disorder), recurrent episode, severe: Qualifiers: Psychotic features: without psychotic features Qualified Code(s): F33.2 - Major depressive disorder, recurrent severe without psychotic features Status: Acute Code(s): F33.2 - Major depressive disorder, recurrent severe without psychotic features (2) Panic disorder: Status: Acute Code(s): F41.0 - Panic disorder [episodic paroxysmal anxiety] (3) Obsessive compulsive disorder: Qualifiers: Obsessive-compulsive disorder type: unspecified Qualified Code(s): F42.9 - Obsessive-compulsive disorder, unspecified Status: Acute Code(s): F42.9 - Obsessive-compulsive disorder, unspecified (4) Alcohol use disorder, severe, in early remission: Status: Acute Code(s): F10.21 - Alcohol dependence, in remission (5) Sleep apnea: Status: Acute Code(s): G47.30 - Sleep apnea, unspecified Plan Patient is a 42-year-old male with history of depression, anxiety/panic attacks, JESSICA and alcohol abuse, recently discharged from on 02/27/23 who presents again for continuing depression, anxiety and then SI, in the face of going off Lamictal and substance abuse. When patient last discharge he says he relapsed right away. Depression said in immediately. Patient got himself sober and stayed sober for the past 8 days however, he had a brief bout of abdominal pain and worried that perhaps Lamictal is hurting his liver so he discontinued it about 5 days ago; he continued to take his other medications as prescribed. Patient's depression worsened, became extremely anxious and relapsed on alcohol for 1 day, became suicidal and so self presents. Patient very much wants to get and stay sober but he finds it difficult to get himself to AA meetings due to depression;he explains that he plans to go but feels so unmotivated in the morning. Patient Agrees that on medication his mood can remain overall good enough but that alcohol relapse always brings about intense self-deprecating thoughts and the return of depression. Patient wants to restart Lamictal; also wants to get back on naltrexone which he said was very helpful for remain sober in the past. Hospital course: 04/06 Mood a little better; no SI. Discussed his struggles with self-deprecating thoughts and how depression really overwhelms his motivation. Discussed again how patient will plan to go to an AA meeting in the morning, wants to but that morning will just feel so unmotivated and tired; he eventually he gives up trying to make himself go, feels worse about himself and depressive, alcohol issues recycle. Discussed options and patient has no history of other drug abuse. Discussed various medication options that might be helpful including adding Adderall which can augment antidepressant medication and help with both motivation and sleepiness. Tunneling Machine Operator discussed risks/side effects of this medication including but not limited to it exacerbating anxiety or causing tachycardia; patient reviewed all the medication an intervention trials he has had in the past and feels that if this was able to help him get to an AA meeting the potential benefit is worth the potential risk. Plan: CV Q 15 minute checks Continue home medications Start Adderall immediate release 5 mg q.a.m. Continue Lamictal 25 mg q.h.s. Continue naltrexone (discussed Antabuse however patient wants to restart naltrexone) Will recheck LFTs; trending down since admission but will recheck after starting naltrexone; possibly get on Vivitrol Team will discuss aftercare, CSS options Patient educated on: diagnosis, medication risk/benefits, substance abuse and therapeutic strategies Informed Consent: understands Reason for continued inpatient stay Substantial Risk for: rapid decompensation Time Spent With Patient Time: Total time managing care of this patient today ____ minutes.
[2023-04-06] MEDS: Nicotine Polacrilex 2 MG GUM 4 MG BUCCAL (13:29)
[2023-04-06] MEDS: hydrOXYzine HCL 25 MG TABLET PO (17:26)
[2023-04-06 17:45] VITALS: BP 121/78; PULSE 52; TEMP 36; O2SAT 98
--- NOTE | 2023-04-06 19:22 | MHC.RECOVSUP ---
? Reason for consult Recovery support o Current location: 512-2 o Identified substance use concern: Alcohol - Support ? Intervention: o Community resources provided o Harm reduction discussion ? Plan: o Patient to follow up with [facility] after discharge ? Additional information: Met with patient and we talk about recovery and Harm reduction... We talk about different Recovery pathways, and Recovery center... Patient was in good spirits..
[2023-04-06 20:05] VITALS: BP 112/73; PULSE 58; RESP 18; TEMP 36.1
[2023-04-06] MEDS: OLANZapine 10 MG TABLET PO (20:10)
[2023-04-06] MEDS: traZODone HCL 50 MG TABLET PO (20:10)
[2023-04-06] MEDS: lamoTRIgine 25 MG TABLET PO (20:10)
--- NOTE | 2023-04-06 20:12 | PC.NURSE ---
PT refused clonidine as he was worried about his HR (58) PT reports he told Dr. Bonilla about the decreased HR trend. Propanolol held due to decreased HR per protocol.
[2023-04-07] MEDS: Naltrexone HCl 50 MG TABLET PO (08:32)
[2023-04-07] MEDS: FLUoxetine HCl 20 MG CAPSULE 80 MG PO (08:32)
[2023-04-07] MEDS: clonazePAM 1 MG TABLET PO ×2 (08:33→20:18)
[2023-04-07] MEDS: Dextroamphetamine/Amphetamine XR 10 MG CAP.ER.24H PO (08:34)
[2023-04-07 08:42] VITALS: BP 118/70; PULSE 55; RESP 18; TEMP 36.6; O2SAT 97
[2023-04-07 09:22] LABS: Alanine Aminotransferase 115 U/L (0-40); Alkaline Phosphatase 94 U/L (39-117); Aspartate Amino Transferase 48 U/L (5-37); Bilirubin Direct 0.2 mg/dL (0.0-0.5); Bilirubin Total 0.8 mg/dL (0.0-1.0); Total Protein 7.9 g/dL (6.5-8.0)
[2023-04-07] MEDS: cloNIDine HCL 0.1 MG TABLET PO (09:51)
[2023-04-07] MEDS: Propranolol HCL 10 MG TABLET PO (09:51)
[2023-04-07 09:52] VITALS: BP 131/87; PULSE 79; O2SAT 96
--- NOTE | 2023-04-07 15:51 | P.PNPSI_ITS ---
Subjective Subjective Date of Service: 04/07/23 Reason For Visit: depression/SI Interim History: Met with patient; discussed with team Patient felt that Adderall has been helpful and noted that he had in feel tired like he usually does and a little more encouraged to engage; still sleeping well; no tachycardia and not worsening anxiety. Patient hoping this could addition can make a difference; patient discussed meeting with cost recovery technician with whom he had a good rapport and is also hoping that this increased support network will help him to consistently go to AA meetings. Patient said he much rather go to AA meetings and engage with others in this form rather than go to a CSS. Shield Runner agreed. Patient had some worries that his sister might [address] him however database report writer also agreed that as patient continues to engage with treatment, this seems unlikely necessary. Mental Status Exam Mental Status Exam Narrative: Pt is alert and oriented; behavior is cooperative, friendly and calm; patient is not in distress; dressed in casual attire, tattoos on arms, neck, scruffy but adequate hygiene; mood is described as little better and affect congruent; eye contact appropriate; Speech is normal rate, volume and prosody and not pressured; no psychomotor agitation/retardation present; thought process is organized and goal directed; Thought content is on tx; otherwise pertinent to relevant topics and without any delusional content, paranoid ideations or grandiosity; denies any SI/HI. There is no evidence of perceptual disturbance. Patients insight and judgment fair Diagnostics Vital Signs (24Hr): Vital Signs - 24 hr 04/06/23 17:45 04/06/23 20:05 04/07/23 08:42 Temperature 96.8 F 97 F 97.9 F Pulse Rate 52 58 55 Respiratory Rate 18 18 Blood Pressure 121/78 112/73 118/70 Pulse Oximetry 98 97 Oxygen Delivery Method Room Air Room Air 04/07/23 09:52 Temperature Pulse Rate 79 Respiratory Rate Blood Pressure 131/87 Pulse Oximetry 96 Oxygen Delivery Method Room Air BMI result Body Mass Index 33.9 Labs 04/03/23 12:19 04/03/23 12:19 Labs: Laboratory Results - last 48 hr 04/07/23 08:24 Total Bilirubin 0.8 Direct Bilirubin 0.2 AST 48 H ALT 115 H Alkaline Phosphatase 94 Total Protein 7.9 Albumin 5.0 Medications Medications Current Medications Al Hydroxide/Mg Hydroxide (Magnesium Hydrox/Alum Hydrox 30 Ml Oral.Susp) 30 ml PO Q6H PRN PRN Reason: Heartburn/Nausea Amphetamine/Dextroamphetamine (Dextroamphetamine/Amphetamine Xr 10 Mg Cap.Er.24h) 10 mg PO DAILY [facility] [place] Last Admin: 04/07/23 08:34 Dose: 10 mg Clonazepam (Clonazepam 1 Mg Tablet) 1 mg PO BID [facility] [place] Last Admin: 04/07/23 08:33 Dose: 1 mg Clonidine HCl (Clonidine Hcl 0.1 Mg Tablet) 0.1 mg PO BID [facility] [place]; Protocol Last Admin: 04/07/23 09:51 Dose: 0.1 mg Fluoxetine HCl (Fluoxetine Hcl 20 Mg Capsule) 80 mg PO DAILY [facility] [place] Last Admin: 04/07/23 08:32 Dose: 80 mg Hydroxyzine HCl (Hydroxyzine Hcl 25 Mg Tablet) 25 mg PO Q6H PRN PRN Reason: Anxiety Last Admin: 04/06/23 17:26 Dose: 25 mg Lamotrigine (Lamotrigine 25 Mg Tablet) 25 mg PO BEDTIME [facility] [place] Last Admin: 04/06/23 20:10 Dose: 25 mg Magnesium Hydroxide (Milk Of Magnesia 30 Ml Oral.Susp) 30 ml PO DAILY PRN PRN Reason: Constipation Naltrexone HCl (Naltrexone Hcl 50 Mg Tablet) 50 mg PO DAILY [facility] [place] Last Admin: 04/07/23 08:32 Dose: 50 mg Nicotine (Nicotine 21 Mg Patch.Td24) 21 mg TRANSDERMA DAILY PRN PRN Reason: smoking cessation Nicotine Polacrilex (Nicotine Polacrilex 2 Mg Gum) 4 mg BUCCAL Q2H PRN PRN Reason: Nicotine Cravings Last Admin: 04/06/23 13:29 Dose: 2 mg Olanzapine (Olanzapine 10 Mg Tablet) 10 mg PO BEDTIME [facility] [place] Last Admin: 04/06/23 20:10 Dose: 10 mg Propranolol HCl (Propranolol Hcl 10 Mg Tablet) 10 mg PO BID [facility] [place]; Protocol Last Admin: 04/07/23 09:51 Dose: 10 mg Trazodone HCl (Trazodone Hcl 50 Mg Tablet) 50 mg PO BEDTIME [facility] [place] Last Admin: 04/06/23 20:10 Dose: 50 mg Trazodone HCl (Trazodone Hcl 50 Mg Tablet) 50 mg PO BEDTIME MRX1 PRN PRN Reason: Insomnia Allergies Allergies Allergy/AdvReac Type Severity Reaction Status Date / Time mirtazapine [MIRTAZAPINE] Allergy Intermediate UNKNOWN Verified 01/27/23 17:42 sulfamethoxazole Allergy Unknown RASH Verified 01/27/23 17:42 [From BACTRIM] trimethoprim [From BACTRIM] Allergy Unknown RASH Verified 01/27/23 17:42 Assessment & Plan Assessment & Plan (1) MDD (major depressive disorder), recurrent episode, severe: Qualifiers: Psychotic features: without psychotic features Qualified Code(s): F33.2 - Major depressive disorder, recurrent severe without psychotic features Status: Acute Code(s): F33.2 - Major depressive disorder, recurrent severe without psychotic features (2) Panic disorder: Status: Acute Code(s): F41.0 - Panic disorder [episodic paroxysmal anxiety] (3) Obsessive compulsive disorder: Qualifiers: Obsessive-compulsive disorder type: unspecified Qualified Code(s): F 42.9 - Obsessive-compulsive disorder, unspecified Status: Acute Code(s): F42.9 - Obsessive-compulsive disorder, unspecified (4) Alcohol use disorder, severe, in early remission: Status: Acute Code(s): F10.21 - Alcohol dependence, in remission (5) Sleep apnea: Status: Acute Code(s): G47.30 - Sleep apnea, unspecified Plan Patient is a 42-year-old male with history of depression, anxiety/panic attacks, JESSICA and alcohol abuse, recently discharged from on 02/27/23 who presents again for continuing depression, anxiety and then SI, in the face of going off Lamictal and substance abuse. When patient last discharge he says he relapsed right away. Depression said in immediately. Patient got himself sober and stayed sober for the past 8 days however, he had a brief bout of abdominal pain and worried that perhaps Lamictal is hurting his liver so he discontinued it about 5 days ago; he continued to take his other medications as prescribed. Patient's depression worsened, became extremely anxious and relapsed on alcohol for 1 day, became suicidal and so self presents. Patient very much wants to get and stay sober but he finds it difficult to get himself to AA meetings due to depression;he explains that he plans to go but feels so unmotivated in the morning. Patient Agrees that on medication his mood can remain overall good enough but that alcohol relapse always brings about intense self-deprecating thoughts and the return of depression. Patient wants to restart Lamictal; also wants to get back on naltrexone which he said was very helpful for remain sober in the past. Hospital course: 04/06 Mood a little better; no SI. Discussed his struggles with self-deprecating thoughts and how depression really overwhelms his motivation. Discussed again how patient will plan to go to an AA meeting in the morning, wants to but that morning will just feel so unmotivated and tired; he eventually he gives up trying to make himself go, feels worse about himself and depressive, alcohol issues recycle. Discussed options and patient has no history of other drug abuse. Discussed various medication options that might be helpful including adding Adderall which can augment antidepressant medication and help with both motivation and sleepiness. Shield Runner discussed risks/side effects of this medication including but not limited to it exacerbating anxiety or causing tachycardia; patient reviewed all the medication an intervention trials he has had in the past and feels that if this was able to help him get to an AA meeting the potential benefit is worth the potential risk. 04/07 patient feels that Adderall has been helpful, does not feel tired and more able to engage; no side effects. Patient continues to have intermittent bouts of anxiety but is able to be redirected or talk himself out of it. Increasing hopefulness towards sobriety. Plan: CV Q 15 minute checks Continue home medications Continue Adderall XL 10 mg q.a.m. Continue Lamictal 25 mg q.h.s. Continue naltrexone (discussed Antabuse however patient wants to restart naltrexone) Will recheck LFTs; trending down since admission but will recheck after starting naltrexone; possibly get on Vivitrol Team will discuss aftercare, CSS options Patient educated on: diagnosis, medication risk/benefits, substance abuse and therapeutic strategies Informed Consent: understands Reason for continued inpatient stay Substantial Risk for: rapid decompensation Time Spent With Patient Time: Total time managing care of this patient today ____ minutes.
[2023-04-07 17:10] VITALS: BP 116/75; PULSE 62; RESP 16; TEMP 36.1; O2SAT 98
[2023-04-07] MEDS: lamoTRIgine 25 MG TABLET PO (20:18)
[2023-04-07] MEDS: traZODone HCL 50 MG TABLET PO (20:18)
[2023-04-07] MEDS: OLANZapine 10 MG TABLET PO (20:18)
[2023-04-07 20:22] VITALS: BP 110/65; PULSE 60; RESP 18; TEMP 36.2; O2SAT 97
[2023-04-08] MEDS: FLUoxetine HCl 20 MG CAPSULE 80 MG PO (08:27)
[2023-04-08] MEDS: Propranolol HCL 10 MG TABLET PO (08:27)
[2023-04-08] MEDS: Naltrexone HCl 50 MG TABLET PO (08:27)
[2023-04-08] MEDS: cloNIDine HCL 0.1 MG TABLET PO (08:27)
[2023-04-08] MEDS: Dextroamphetamine/Amphetamine XR 10 MG CAP.ER.24H PO (08:27)
[2023-04-08] MEDS: clonazePAM 1 MG TABLET PO ×2 (08:28→20:15)
[2023-04-08 08:32] VITALS: BP 130/78; PULSE 64; RESP 16; TEMP 36.2; O2SAT 98
--- NOTE | 2023-04-08 10:42 | HO.PSYCHPN ---
Subjective Subjective Date of Service: 04/08/23 Reason For Visit: depression/SI Subjective Notes: Conditional Voluntary Interim History: Patient worried about his sisters section 35 ing him. encouraged him to set limits with sisters and discuss with treament team. encouraged pt to stay focused on treatmetn now and make the most of his time here and work on relapse prevention. He reports that Adderall has been helpful. He reports more motivation and energy; feels more hopeful; patient discussed meeting with assistant softball coach with whom he had a good rapport and is also hoping that this increased support network will help him to consistently go to AA meetings. Patient said he much rather go to AA meetings and engage with others in this form rather than go to a CSS. Medication Compliance: Yes Side effects from medications: No Attending Groups: Yes Review of Systems Acute medical concerns: No Medical Review of Systems: unchanged Review of Systems Constitutional: Reports no additional constitutional complaints Cardiovascular: Reports no additional cardiovascular complaints and Reports dyspnea Respiratory: Reports dyspnea and Reports wheezing Allergic/Immunologic: Reports wheezing Mental Status Exam Mental Status Exam Narrative: Pt is alert and oriented; behavior is cooperative, friendly and calm; patient is not in distress; dressed in casual attire, tattoos on arms, neck, scruffy but adequate hygiene; mood is described as little better and affect congruent; eye contact appropriate; Speech is normal rate, volume and prosody and not pressured; no psychomotor agitation/retardation present; thought process is organized and goal directed; Thought content is on tx; otherwise pertinent to relevant topics and without any delusional content, paranoid ideations or grandiosity; denies any SI/HI. There is no evidence of perceptual disturbance.Patients insight and judgment fair Diagnostics Vital Signs (24Hr): Vital Signs - 24 hr 04/07/23 17:10 04/07/23 20:22 Temperature 96.9 F 97.2 F Pulse Rate 62 60 Respiratory Rate 16 18 Blood Pressure 116/75 110/65 Pulse Oximetry 98 97 Oxygen Delivery Method Room Air Room Air BMI result Body Mass Index 33.9 Labs 04/03/23 12:19 04/03/23 12:19 Labs: Laboratory Results - last 48 hr 04/07/23 08:24 Total Bilirubin 0.8 Direct Bilirubin 0.2 AST 48 H ALT 115 H Alkaline Phosphatase 94 Total Protein 7.9 Albumin 5.0 Medications Medications Current Medications Al Hydroxide/Mg Hydroxide (Magnesium Hydrox/Alum Hydrox 30 Ml Oral.Susp) 30 ml PO Q6H PRN PRN Reason: Heartburn/Nausea Amphetamine/Dextroamphetamine (Dextroamphetamine/Amphetamine Xr 10 Mg Cap.Er.24h) 10 mg PO DAILY [facility] Last Admin: 04/08/23 08:27 Dose: 10 mg Clonazepam (Clonazepam 1 Mg Tablet) 1 mg PO BID [facility] Last Admin: 04/08/23 08:28 Dose: 1 mg Clonidine HCl (Clonidine Hcl 0.1 Mg Tablet) 0.1 mg PO BID [facility]; Protocol Last Admin: 04/08/23 08:27 Dose: 0.1 mg Fluoxetine HCl (Fluoxetine Hcl 20 Mg Capsule) 80 mg PO DAILY [facility] Last Admin: 04/08/23 08:27 Dose: 80 mg Hydroxyzine HCl (Hydroxyzine Hcl 25 Mg Tablet) 25 mg PO Q6H PRN PRN Reason: Anxiety Last Admin: 04/06/23 17:26 Dose: 25 mg Lamotrigine (Lamotrigine 25 Mg Tablet) 25 mg PO BEDTIME [facility] Last Admin: 04/07/23 20:18 Dose: 25 mg Magnesium Hydroxide (Milk Of Magnesia 30 Ml Oral.Susp) 30 ml PO DAILY PRN PRN Reason: Constipation Naltrexone HCl (Naltrexone Hcl 50 Mg Tablet) 50 mg PO DAILY [facility] Last Admin: 04/08/23 08:27 Dose: 50 mg Nicotine (Nicotine 21 Mg Patch.Td24) 21 mg TRANSDERMA DAILY PRN PRN Reason: smoking cessation Nicotine Polacrilex (Nicotine Polacrilex 2 Mg Gum) 4 mg BUCCAL Q2H PRN PRN Reason: Nicotine Cravings Last Admin: 04/06/23 13:29 Dose: 2 mg Olanzapine (Olanzapine 10 Mg Tablet) 10 mg PO BEDTIME [facility] Last Admin: 04/07/23 20:18 Dose: 10 mg Propranolol HCl (Propranolol Hcl 10 Mg Tablet) 10 mg PO BID [facility]; Protocol Last Admin: 04/08/23 08:27 Dose: 10 mg Trazodone HCl (Trazodone Hcl 50 Mg Tablet) 50 mg PO BEDTIME [facility] Last Admin: 04/07/23 20:18 Dose: 50 mg Trazodone HCl (Trazodone Hcl 50 Mg Tablet) 50 mg PO BEDTIME MRX1 PRN PRN Reason: Insomnia Allergies Allergies Allergy/AdvReac Type Severity Reaction Status Date / Time mirtazapine [MIRTAZAPINE] Allergy Intermediate UNKNOWN Verified 01/27/23 17:42 sulfamethoxazole Allergy Unknown RASH Verified 01/27/23 17:42 [From BACTRIM] trimethoprim [From BACTRIM] Allergy Unknown RASH Verified 01/27/23 17:42 Assessment & Plan Assessment & Plan (1) MDD (major depressive disorder), recurrent episode, severe: Qualifiers: Psychotic features: without psychotic features Qualified Code(s): F33.2 - Major depressive disorder, recurrent severe without psychotic features Status: Acute Code(s): F33.2 - Major depressive disorder, recurrent severe without psychotic features (2) Panic disorder: Status: Acute Code(s): F41.0 - Panic disorder [episodic paroxysmal anxiety] (3) Obsessive compulsive disorder: Qualifiers: Obsessive-compulsive disorder type: unspecified Qualified Code(s): F42.9 - Obsessive-compulsive disorder, unspecified Status: Acute Code(s): F42.9 - Obsessive-compulsive disorder, unspecified (4) Alcohol use disorder, severe, in early remission: Status: Acute Code(s): F10.21 - Alcohol dependence, in remission (5) Sleep apnea: Status: Acute Code(s): G47.30 - Sleep apnea, unspecified Plan Patient is a 42-year-old male with history of depression, anxiety/panic attacks, JESSICA and alcohol abuse, recently discharged from on 02/27/23 who presents again for continuing depression, anxiety and then SI, in the face of going off Lamictal and substance abuse. When patient last discharge he says he relapsed right away. Depression said in immediately. Patient got himself sober and stayed sober for the past 8 days however, he had a brief bout of abdominal pain and worried that perhaps Lamictal is hurting his liver so he discontinued it about 5 days ago; he continued to take his other medications as prescribed. Patient's depression worsened, became extremely anxious and relapsed on alcohol for 1 day, became suicidal and so self presents. Patient very much wants to get and stay sober but he finds it difficult to get himself to AA meetings due to depression;he explains that he plans to go but feels so unmotivated in the morning. Patient Agrees that on medication his mood can remain overall good enough but that alcohol relapse always brings about intense self-deprecating thoughts and the return of depression. Patient wants to restart Lamictal; also wants to get back on naltrexone which he said was very helpful for remain sober in the past. Hospital course: 04/06 Mood a little better; no SI. Discussed his struggles with self-deprecating thoughts and how depression really overwhelms his motivation. Discussed again how patient will plan to go to an AA meeting in the morning, wants to but that morning will just feel so unmotivated and tired; he eventually he gives up trying to make himself go, feels worse about himself and depressive, alcohol issues recycle. Discussed options and patient has no history of other drug abuse. Discussed various medication options that might be helpful including adding Adderall which can augment antidepressant medication and help with both motivation and sleepiness. Color Making Supervisor discussed risks/side effects of this medication including but not limited to it exacerbating anxiety or causing tachycardia; patient reviewed all the medication an intervention trials he has had in the past and feels that if this was able to help him get to an AA meeting the potential benefit is worth the potential risk. 04/07 patient feels that Adderall has been helpful, does not feel tired and more able to engage; no side effects. Patient continues to have intermittent bouts of anxiety but is able to be redirected or talk himself out of it. Increasing hopefulness towards sobriety. 04/08/23 continue tx plan Plan: CV Q 15 minute checks Continue home medications Continue Adderall XL 10 mg q.a.m. Continue Lamictal 25 mg q.h.s. Continue naltrexone (discussed Antabuse however patient wants to restart naltrexone) Will recheck LFTs; trending down since admission but will recheck after starting naltrexone; possibly get on Vivitrol Team will discuss aftercare, CSS options Patient educated on: diagnosis, medication risk/benefits, substance abuse, therapeutic strategies and medical condition Informed Consent: understands and further education needed Reason for continued inpatient stay Substantial Risk for: harm to self and rapid decompensation Time Spent With Patient Time: Total time managing care of this patient today ____ minutes.
[2023-04-08 16:00] VITALS: BP 121/77; PULSE 83; RESP 16; TEMP 36.9; O2SAT 100
[2023-04-08] MEDS: hydrOXYzine HCL 25 MG TABLET PO (16:49)
[2023-04-08 20:08] VITALS: BP 120/77; PULSE 56; RESP 16; TEMP 36.1
[2023-04-08] MEDS: lamoTRIgine 25 MG TABLET PO (20:15)
[2023-04-08] MEDS: OLANZapine 10 MG TABLET PO (20:15)
[2023-04-08] MEDS: traZODone HCL 50 MG TABLET PO (20:15)
[2023-04-09 08:33] VITALS: BP 134/86; PULSE 70; RESP 16; TEMP 36.6; O2SAT 95
[2023-04-09] MEDS: Naltrexone HCl 50 MG TABLET PO (09:16)
[2023-04-09] MEDS: Dextroamphetamine/Amphetamine XR 10 MG CAP.ER.24H PO (09:16)
[2023-04-09] MEDS: cloNIDine HCL 0.1 MG TABLET PO ×2 (09:16→20:24)
[2023-04-09] MEDS: Propranolol HCL 10 MG TABLET PO (09:16)
[2023-04-09] MEDS: FLUoxetine HCl 20 MG CAPSULE 80 MG PO (09:16)
[2023-04-09] MEDS: clonazePAM 1 MG TABLET PO ×2 (09:16→20:23)
[2023-04-09] MEDS: Lidocaine 4 % Patch ADH..PATCH 1 PATCH TRANSDERMA (14:47)
--- NOTE | 2023-04-09 20:17 | HO.PSYCHPN ---
Subjective Subjective Date of Service: 04/09/23 Reason For Visit: depression/SI Subjective Notes: Conditional Voluntary Interim History: Patient less focused on worries about his sisters and section [employer]. more active in groups and with peers; Pt focusing on somatic complaints and need ing much reassurance from staff. Medication Compliance: Yes Side effects from medications: No Attending Groups: Yes Review of Systems Acute medical concerns: No Medical Review of Systems: unchanged Review of Systems Constitutional: Reports no additional constitutional complaints Cardiovascular: Reports no additional cardiovascular complaints and Reports dyspnea Respiratory: Reports dyspnea and Reports wheezing Allergic/Immunologic: Reports wheezing Mental Status Exam Mental Status Exam Narrative: Pt is alert and oriented; behavior is cooperative, friendly and calm; patient is not in distress; dressed in casual attire, tattoos on arms, neck, scruffy but adequate hygiene; mood is described as little better and affect congruent; eye contact appropriate; Speech is normal rate, volume and prosody and not pressured; no psychomotor agitation/retardation present; thought process is organized and goal directed; Thought content is on tx; otherwise pertinent to relevant topics and without any delusional content, paranoid ideations or grandiosity; denies any SI/HI. There is no evidence of perceptual disturbance.Patients insight and judgment fair Diagnostics Vital Signs (24Hr): Vital Signs - 24 hr 04/09/23 08:33 Temperature 97.8 F Pulse Rate 70 Respiratory Rate 16 Blood Pressure 134/86 Pulse Oximetry 95 Oxygen Delivery Method Room Air BMI result Body Mass Index 33.9 Labs 04/03/23 12:19 04/03/23 12:19 Medications Medications Current Medications Al Hydroxide/Mg Hydroxide (Magnesium Hydrox/Alum Hydrox 30 Ml Oral.Susp) 30 ml PO Q6H PRN PRN Reason: Heartburn/Nausea Amphetamine/Dextroamphetamine (Dextroamphetamine/Amphetamine Xr 10 Mg Cap.Er.24h) 10 mg PO DAILY [facility] Last Admin: 04/09/23 09:16 Dose: 10 mg Clonazepam (Clonazepam 1 Mg Tablet) 1 mg PO BID [facility] Last Admin: 04/09/23 09:16 Dose: 1 mg Clonidine HCl (Clonidine Hcl 0.1 Mg Tablet) 0.1 mg PO BID [facility]; Protocol Last Admin: 04/09/23 09:16 Dose: 0.1 mg Fluoxetine HCl (Fluoxetine Hcl 20 Mg Capsule) 80 mg PO DAILY [facility] Last Admin: 11/12/23 09:16 Dose: 80 mg Hydroxyzine HCl (Hydroxyzine Hcl 25 Mg Tablet) 25 mg PO Q6H PRN PRN Reason: Anxiety Last Admin: 04/08/23 16:49 Dose: 25 mg Lamotrigine (Lamotrigine 25 Mg Tablet) 25 mg PO BEDTIME [facility] Last Admin: 04/08/23 20:15 Dose: 25 mg Lidocaine (Lidocaine 4 % Patch Adh..Patch) 1 patch TRANSDERMA DAILY PRN; Protocol PRN Reason: Pain, Mild (Pain Scale 1-3) Last Admin: 04/09/23 14:47 Dose: 1 patch Magnesium Hydroxide (Milk Of Magnesia 30 Ml Oral.Susp) 30 ml PO DAILY PRN PRN Reason: Constipation Naltrexone HCl (Naltrexone Hcl 50 Mg Tablet) 50 mg PO DAILY [facility] Last Admin: 04/09/23 09:16 Dose: 50 mg Nicotine (Nicotine 21 Mg Patch.Td24) 21 mg TRANSDERMA DAILY PRN PRN Reason: smoking cessation Nicotine Polacrilex (Nicotine Polacrilex 2 Mg Gum) 4 mg BUCCAL Q2H PRN PRN Reason: Nicotine Cravings Last Admin: 04/06/23 13:29 Dose: 2 mg Olanzapine (Olanzapine 10 Mg Tablet) 10 mg PO BEDTIME [facility] Last Admin: 04/08/23 20:15 Dose: 10 mg Propranolol HCl (Propranolol Hcl 10 Mg Tablet) 10 mg PO BID [facility]; Protocol Last Admin: 04/09/23 09:16 Dose: 10 mg Trazodone HCl (Trazodone Hcl 50 Mg Tablet) 50 mg PO BEDTIME [facility] Last Admin: 04/08/23 20:15 Dose: 50 mg Trazodone HCl (Trazodone Hcl 50 Mg Tablet) 50 mg PO BEDTIME MRX1 PRN PRN Reason: Insomnia Allergies Allergies Allergy/AdvReac Type Severity Reaction Status Date / Time mirtazapine [MIRTAZAPINE] Allergy Intermediate UNKNOWN Verified 01/27/23 17:42 sulfamethoxazole Allergy Unknown RASH Verified 01/27/23 17:42 [From BACTRIM] trimethoprim [From BACTRIM] Allergy Unknown RASH Verified 01/27/23 17:42 Assessment & Plan Assessment & Plan (1) MDD (major depressive disorder), recurrent episode, severe: Qualifiers: Psychotic features: without psychotic features Qualified Code(s): F33.2 - Major depressive disorder, recurrent severe without psychotic features Status: Acute Code(s): F33.2 - Major depressive disorder, recurrent severe without psychotic features (2) Panic disorder: Status: Acute Code(s): F41.0 - Panic disorder [episodic paroxysmal anxiety] (3) Obsessive compulsive disorder: Qualifiers: Obsessive-compulsive disorder type: unspecified Qualified Code(s): F42.9 - Obsessive-compulsive disorder, unspecified Status: Acute Code(s): F42.9 - Obsessive-compulsive disorder, unspecified (4) Alcohol use disorder, severe, in early remission: Status: Acute Code(s): F10.21 - Alcohol dependence, in remission (5) Sleep apnea: Status: Acute Code(s): G47.30 - Sleep apnea, unspecified Plan Patient is a 42-year-old male with history of depression, anxiety/panic attacks, JESSICA and alcohol abuse, recently discharged from on 02/27/23 who presents again for continuing depression, anxiety and then SI, in the face of going off Lamictal and substance abuse. When patient last discharge he says he relapsed right away. Depression said in immediately. Patient got himself sober and stayed sober for the past 8 days however, he had a brief bout of abdominal pain and worried that perhaps Lamictal is hurting his liver so he discontinued it about 5 days ago; he continued to take his other medications as prescribed. Patient's depression worsened, became extremely anxious and relapsed on alcohol for 1 day, became suicidal and so self presents. Patient very much wants to get and stay sober but he finds it difficult to get himself to AA meetings due to depression;he explains that he plans to go but feels so unmotivated in the morning. Patient Agrees that on medication his mood can remain overall good enough but that alcohol relapse always brings about intense self-deprecating thoughts and the return of depression. Patient wants to restart Lamictal; also wants to get back on naltrexone which he said was very helpful for remain sober in the past. Hospital course: 04/06 Mood a little better; no SI. Discussed his struggles with self-deprecating thoughts and how depression really overwhelms his motivation. Discussed again how patient will plan to go to an AA meeting in the morning, wants to but that morning will just feel so unmotivated and tired; he eventually he gives up trying to make himself go, feels worse about himself and depressive, alcohol issues recycle. Discussed options and patient has no history of other drug abuse. Discussed various medication options that might be helpful including adding Adderall which can augment antidepressant medication and help with both motivation and sleepiness. [employer] Director discussed risks/side effects of this medication including but not limited to it exacerbating anxiety or causing tachycardia; patient reviewed all the medication an intervention trials he has had in the past and feels that if this was able to help him get to an AA meeting the potential benefit is worth the potential risk. 04/07 patient feels that Adderall has been helpful, does not feel tired and more able to engage; no side effects. Patient continues to have intermittent bouts of anxiety but is able to be redirected or talk himself out of it. Increasing hopefulness towards sobriety. 04/08/23 continue tx plan 04/09/23 continue tx plan Plan: CV Q 15 minute checks Continue home medications Continue Adderall XL 10 mg q.a.m. Continue Lamictal 25 mg q.h.s. Continue naltrexone (discussed Antabuse however patient wants to restart naltrexone) Will recheck LFTs; trending down since admission but will recheck after starting naltrexone; possibly get on Vivitrol Team will discuss aftercare, CSS options Reason for continued inpatient stay Substantial Risk for: harm to self, inability to function and rapid decompensation Time Spent With Patient Time: Total time managing care of this patient today ____ minutes.
[2023-04-09 20:20] VITALS: BP 135/82; PULSE 56; TEMP 36.1
[2023-04-09] MEDS: OLANZapine 10 MG TABLET PO (20:23)
[2023-04-09] MEDS: lamoTRIgine 25 MG TABLET PO (20:24)
[2023-04-09] MEDS: traZODone HCL 50 MG TABLET PO (20:24)
[2023-04-10] MEDS: clonazePAM 1 MG TABLET PO ×2 (08:44→20:33)
[2023-04-10] MEDS: FLUoxetine HCl 20 MG CAPSULE 80 MG PO (08:44)
[2023-04-10] MEDS: Naltrexone HCl 50 MG TABLET PO (08:44)
[2023-04-10] MEDS: Propranolol HCL 10 MG TABLET PO ×2 (08:44→20:34)
[2023-04-10] MEDS: cloNIDine HCL 0.1 MG TABLET PO ×2 (08:44→20:33)
[2023-04-10] MEDS: Dextroamphetamine/Amphetamine XR 10 MG CAP.ER.24H PO (08:44)
[2023-04-10 09:32] VITALS: BP 133/84; PULSE 63; RESP 16; TEMP 36.8; O2SAT 96
--- NOTE | 2023-04-10 10:01 | P.PNPSI_ITS ---
Subjective Subjective Date of Service: 04/10/23 Reason For Visit: depression/SI Interim History: met with patient; discussed with team; reviewed notes reports feeling better, good mood, no SI; says adderall seems to be helping citing feeling wakeful, focused and engaged; pt said normally he'd feel tired and would be taking naps during the day, which he has not done since starting Adderall; he also denies any med side-effects. Sleeping and eating well. Wants to get on Vivitrol once outpt Pt discussed aftercare plans and he's optimistic about pursuing sobriety; discussed plan for inevitable, knowing that at some point in future, he will again get triggered, feel depressed and be crave alchohol...and how he will instead reach out for help, support instead of alcohol. Mental Status Exam Mental Status Exam Narrative: Pt is alert and oriented; behavior is cooperative, friendly and calm; patient is not in distress; dressed in casual attire, tattoos on arms, neck, scruffy but adequate hygiene; mood is described as good and affect congruent; eye contact appropriate; Speech is normal rate, volume and prosody and not pressured; no psychomotor agitation/retardation present; thought process is organized and goal directed; Thought content is on tx, staying sober; otherwise pertinent to relevant topics and without any delusional content, paranoid ideations or grandiosity; denies any SI/HI. There is no evidence of perceptual disturbance. Patients insight and judgment fair Diagnostics Vital Signs (24Hr): Vital Signs - 24 hr 04/09/23 20:20 04/10/23 09:32 Temperature 96.9 F 98.2 F Pulse Rate 56 63 Respiratory Rate 16 Blood Pressure 135/82 133/84 Pulse Oximetry 96 Oxygen Delivery Method Room Air BMI result Body Mass Index 33.9 Labs 04/03/23 12:19 04/03/23 12:19 Medications Medications Current Medications Al Hydroxide/Mg Hydroxide (Magnesium Hydrox/Alum Hydrox 30 Ml Oral.Susp) 30 ml PO Q6H PRN PRN Reason: Heartburn/Nausea Amphetamine/Dextroamphetamine (Dextroamphetamine/Amphetamine Xr 10 Mg Cap.Er.24h) 10 mg PO DAILY [facility] Last Admin: 04/10/23 08:44 Dose: 10 mg Clonazepam (Clonazepam 1 Mg Tablet) 1 mg PO BID [facility] Last Admin: 04/10/23 08:44 Dose: 1 mg Clonidine HCl (Clonidine Hcl 0.1 Mg Tablet) 0.1 mg PO BID [facility]; Protocol Last Admin: 04/10/23 08:44 Dose: 0.1 mg Fluoxetine HCl (Fluoxetine Hcl 20 Mg Capsule) 80 mg PO DAILY [facility] Last Admin: 04/10/23 08:44 Dose: 80 mg Hydroxyzine HCl (Hydroxyzine Hcl 25 Mg Tablet) 25 mg PO Q6H PRN PRN Reason: Anxiety Last Admin: 04/08/23 16:49 Dose: 25 mg Lamotrigine (Lamotrigine 25 Mg Tablet) 25 mg PO BEDTIME [facility] Last Admin: 04/09/23 20:24 Dose: 25 mg Lidocaine (Lidocaine 4 % Patch Adh..Patch) 1 patch TRANSDERMA DAILY PRN; Protocol PRN Reason: Pain, Mild (Pain Scale 1-3) Last Admin: 04/09/23 14:47 Dose: 1 patch Magnesium Hydroxide (Milk Of Magnesia 30 Ml Oral.Susp) 30 ml PO DAILY PRN PRN Reason: Constipation Naltrexone HCl (Naltrexone Hcl 50 Mg Tablet) 50 mg PO DAILY [facility] Last Admin: 04/10/23 08:44 Dose: 50 mg Nicotine (Nicotine 21 Mg Patch.Td24) 21 mg TRANSDERMA DAILY PRN PRN Reason: smoking cessation Nicotine Polacrilex (Nicotine Polacrilex 2 Mg Gum) 4 mg BUCCAL Q2H PRN PRN Reason: Nicotine Cravings Last Admin: 04/06/23 13:29 Dose: 2 mg Olanzapine (Olanzapine 10 Mg Tablet) 10 mg PO BEDTIME [facility] Last Admin: 04/09/23 20:23 Dose: 10 mg Propranolol HCl (Propranolol Hcl 10 Mg Tablet) 10 mg PO BID [facility]; Protocol Last Admin: 04/10/23 08:44 Dose: 10 mg Trazodone HCl (Trazodone Hcl 50 Mg Tablet) 50 mg PO BEDTIME [facility] Last Admin: 04/09/23 20:24 Dose: 50 mg Trazodone HCl (Trazodone Hcl 50 Mg Tablet) 50 mg PO BEDTIME MRX1 PRN PRN Reason: Insomnia Allergies Allergies Allergy/AdvReac Type Severity Reaction Status Date / Time mirtazapine [MIRTAZAPINE] Allergy Intermediate UNKNOWN Verified 01/27/23 17:42 sulfamethoxazole Allergy Unknown RASH Verified 01/27/23 17:42 [From BACTRIM] trimethoprim [From BACTRIM] Allergy Unknown RASH Verified 01/27/23 17:42 Assessment & Plan Assessment & Plan (1) MDD (major depressive disorder), recurrent episode, severe: Qualifiers: Psychotic features: without psychotic features Qualified Code(s): F33.2 - Major depressive disorder, recurrent severe without psychotic features Status: Acute Code(s): F33.2 - Major depressive disorder, recurrent severe without psychotic features (2) Panic disorder: Status: Acute Code(s): F41.0 - Panic disorder [episodic paroxysmal anxiety] (3) Obsessive compulsive disorder: Qualifiers: Obsessive-compulsive disorder type: unspecified Qualified Code(s): F 42.9 - Obsessive-compulsive disorder, unspecified Status: Acute Code(s): F42.9 - Obsessive-compulsive disorder, unspecified (4) Alcohol use disorder, severe, in early remission: Status: Acute Code(s): F10.21 - Alcohol dependence, in remission (5) Sleep apnea: Status: Acute Code(s): G47.30 - Sleep apnea, unspecified Plan Patient is a 42-year-old male with history of depression, anxiety/panic attacks, JESSICA and alcohol abuse, recently discharged from on 02/27/23 who presents again for continuing depression, anxiety and then SI, in the face of going off Lamictal and substance abuse. When patient last discharge he says he relapsed right away. Depression said in immediately. Patient got himself sober and stayed sober for the past 8 days however, he had a brief bout of abdominal pain and worried that perhaps Lamictal is hurting his liver so he discontinued it about 5 days ago; he continued to take his other medications as prescribed. Patient's depression worsened, became extremely anxious and relapsed on alcohol for 1 day, became suicidal and so self presents. Patient very much wants to get and stay sober but he finds it difficult to get himself to AA meetings due to depression;he explains that he plans to go but feels so unmotivated in the morning. Patient Agrees that on medication his mood can remain overall good enough but that alcohol relapse always brings about intense self-deprecating thoughts and the return of depression. Patient wants to restart Lamictal; also wants to get back on naltrexone which he said was very helpful for remain sober in the past. Hospital course: 04/06 Mood a little better; no SI. Discussed his struggles with self-deprecating thoughts and how depression really overwhelms his motivation. Discussed again how patient will plan to go to an AA meeting in the morning, wants to but that morning will just feel so unmotivated and tired; he eventually he gives up trying to make himself go, feels worse about himself and depressive, alcohol issues recycle. Discussed options and patient has no history of other drug abuse. Discussed various medication options that might be helpful including adding Adderall which can augment antidepressant medication and help with both motivation and sleepiness. Social Professionals discussed risks/side effects of this medication including but not limited to it exacerbating anxiety or causing tachycardia; patient reviewed all the medication an intervention trials he has had in the past and feels that if this was able to help him get to an AA meeting the potential benefit is worth the potential risk. 04/07 patient feels that Adderall has been helpful, does not feel tired and more able to engage; no side effects. Patient continues to have intermittent bouts of anxiety but is able to be redirected or talk himself out of it. Increasing hopefulness towards sobriety. 04/10 reports feeling better, good mood, no SI; says adderall seems to be helping citing feeling wakeful, focused and engaged; pt said normally he'd feel tired and would be taking naps during the day, which he has not done since starting Adderall; he also denies any med side-effects. Sleeping and eating well. Wants to get on Vivitrol once outpt Pt discussed aftercare plans and he's optimistic about pursuing sobriety; discussed plan for inevitable, knowing that at some point in future, he will again get triggered, feel depressed and be crave alchohol...and how he will instead reach out for help, support instead of alcohol. -continue tx plan and dispo planning Plan: CV Q 15 minute checks Continue home medications Continue Adderall XL 10 mg q.a.m. Continue Lamictal 25 mg q.h.s. Continue naltrexone (discussed Antabuse however patient wants to restart naltrexone) Will recheck LFTs; trending down since admission but will recheck after starting naltrexone; possibly get on Vivitrol Team will discuss aftercare, CSS options Patient educated on: diagnosis, medication risk/benefits, substance abuse and therapeutic strategies Informed Consent: understands Reason for continued inpatient stay Substantial Risk for: stable for discharge Time Spent With Patient Time: Total time managing care of this patient today ____ minutes.
[2023-04-10] MEDS: Lidocaine 4 % Patch ADH..PATCH 1 PATCH TRANSDERMA (11:43)
[2023-04-10 18:00] VITALS: BP 116/68; PULSE 59; RESP 16; TEMP 36.6; O2SAT 97
[2023-04-10] MEDS: OLANZapine 10 MG TABLET PO (20:33)
[2023-04-10] MEDS: traZODone HCL 50 MG TABLET PO (20:33)
[2023-04-10] MEDS: lamoTRIgine 25 MG TABLET PO (20:34)
[2023-04-11 08:20] VITALS: BP 121/69; PULSE 58; RESP 16; TEMP 36.1; O2SAT 99
[2023-04-11] MEDS: Dextroamphetamine/Amphetamine XR 10 MG CAP.ER.24H PO (08:56)
[2023-04-11] MEDS: clonazePAM 1 MG TABLET PO (08:56)
[2023-04-11] MEDS: cloNIDine HCL 0.1 MG TABLET PO ×2 (08:56→20:56)
[2023-04-11] MEDS: Naltrexone HCl 50 MG TABLET PO (08:56)
[2023-04-11] MEDS: FLUoxetine HCl 20 MG CAPSULE 80 MG PO (08:56)
--- NOTE | 2023-04-11 09:27 | HO.PSYCHPN ---
Subjective Subjective Date of Service: 04/11/23 Reason For Visit: depression/SI Interim History: Met with patient; discussed with team Patient reports that he is doing good and feeling increasingly optimistic about remains stable during aftercare. Hopeful about sobriety. Discussed medications. For clonazepam he says has been taking 1 mg b.i.d. for years; discussed how nighttime medications may make him sleepy and he does not need it and that sometimes it taking in the morning may make him feel more tired and less motivated. Patient agrees to break it up into clonazepam 0.5 mg q.i.d. and make it p.r.n. so he only takes it when he feels the need. Clonidine helps with anxiety overall and insomnia and propranolol prescribed for elevated heart rate Mental Status Exam Mental Status Exam Narrative: Pt is alert and oriented; behavior is cooperative, friendly and calm; patient is not in distress; dressed in casual attire, tattoos on arms, neck, scruffy but adequate hygiene; mood is described as good and affect congruent; eye contact appropriate; Speech is normal rate, volume and prosody and not pressured; no psychomotor agitation/retardation present; thought process is organized and goal directed; Thought content is on tx, staying sober; otherwise pertinent to relevant topics and without any delusional content, paranoid ideations or grandiosity; denies any SI/HI. There is no evidence of perceptual disturbance. Patients insight and judgment fair Diagnostics Vital Signs (24Hr): Vital Signs - 24 hr 04/10/23 09:32 04/10/23 18:00 Temperature 98.2 F 98 F Pulse Rate 63 59 Respiratory Rate 16 16 Blood Pressure 133/84 116/68 Pulse Oximetry 96 97 Oxygen Delivery Method Room Air Room Air BMI result Body Mass Index 33.9 Labs 04/03/23 12:19 04/03/23 12:19 Medications Medications Current Medications Al Hydroxide/Mg Hydroxide (Magnesium Hydrox/Alum Hydrox 30 Ml Oral.Susp) 30 ml PO Q6H PRN PRN Reason: Heartburn/Nausea Amphetamine/Dextroamphetamine (Dextroamphetamine/Amphetamine Xr 10 Mg Cap.Er.24h) 10 mg PO DAILY [facility] Last Admin: 04/11/23 08:56 Dose: 10 mg Clonazepam (Clonazepam 1 Mg Tablet) 1 mg PO BID [facility] Last Admin: 04/11/23 08:56 Dose: 1 mg Clonidine HCl (Clonidine Hcl 0.1 Mg Tablet) 0.1 mg PO BID [facility]; Protocol Last Admin: 04/11/23 08:56 Dose: 0.1 mg Fluoxetine HCl (Fluoxetine Hcl 20 Mg Capsule) 80 mg PO DAILY [facility] Last Admin: 04/11/23 08:56 Dose: 80 mg Hydroxyzine HCl (Hydroxyzine Hcl 25 Mg Tablet) 25 mg PO Q6H PRN PRN Reason: Anxiety Last Admin: 04/08/23 16:49 Dose: 25 mg Lamotrigine (Lamotrigine 25 Mg Tablet) 25 mg PO BEDTIME [facility] Last Admin: 04/10/23 20:34 Dose: 25 mg Lidocaine (Lidocaine 4 % Patch Adh..Patch) 1 patch TRANSDERMA DAILY PRN; Protocol PRN Reason: Pain, Mild (Pain Scale 1-3) Last Admin: 04/10/23 11:43 Dose: 1 patch Magnesium Hydroxide (Milk Of Magnesia 30 Ml Oral.Susp) 30 ml PO DAILY PRN PRN Reason: Constipation Naltrexone HCl (Naltrexone Hcl 50 Mg Tablet) 50 mg PO DAILY [facility] Last Admin: 04/11/23 08:56 Dose: 50 mg Nicotine (Nicotine 21 Mg Patch.Td24) 21 mg TRANSDERMA DAILY PRN PRN Reason: smoking cessation Nicotine Polacrilex (Nicotine Polacrilex 2 Mg Gum) 4 mg BUCCAL Q2H PRN PRN Reason: Nicotine Cravings Last Admin: 04/06/23 13:29 Dose: 2 mg Olanzapine (Olanzapine 10 Mg Tablet) 10 mg PO BEDTIME [facility] Last Admin: 04/10/23 20:33 Dose: 10 mg Propranolol HCl (Propranolol Hcl 10 Mg Tablet) 10 mg PO BID [facility]; Protocol Last Admin: 04/11/23 08:56 Dose: Not Given Trazodone HCl (Trazodone Hcl 50 Mg Tablet) 50 mg PO BEDTIME [facility] Last Admin: 04/10/23 20:33 Dose: 50 mg Trazodone HCl (Trazodone Hcl 50 Mg Tablet) 50 mg PO BEDTIME [facility] PRN PRN Reason: Insomnia Allergies Allergies Allergy/AdvReac Type Severity Reaction Status Date / Time mirtazapine [MIRTAZAPINE] Allergy Intermediate UNKNOWN Verified 01/27/23 17:42 sulfamethoxazole Allergy Unknown RASH Verified 01/27/23 17:42 [From [facility]RIM] trimethoprim [From BACTRIM] Allergy Unknown RASH Verified 01/27/23 17:42 Assessment & Plan Assessment & Plan (1) MDD (major depressive disorder), recurrent episode, severe: Qualifiers: Psychotic features: without psychotic features Qualified Code(s): F33.2 - Major depressive disorder, recurrent severe without psychotic features Status: Acute Code(s): F33.2 - Major depressive disorder, recurrent severe without psychotic features (2) Panic disorder: Status: Acute Code(s): F41.0 - Panic disorder [episodic paroxysmal anxiety] (3) Obsessive compulsive disorder: Qualifiers: Obsessive-compulsive disorder type: unspecified Qualified Code(s): F42.9 - Obsessive-compulsive disorder, unspecified Status: Acute Code(s): F42.9 - Obsessive-compulsive disorder, unspecified (4) Alcohol use disorder, severe, in early remission: Status: Acute Code(s): F10.21 - Alcohol dependence, in remission (5) Sleep apnea: Status: Acute Code(s): G47.30 - Sleep apnea, unspecified Plan Patient is a 42-year-old male with history of depression, anxiety/panic attacks, JESSICA and alcohol abuse, recently discharged from on 02/27/23 who presents again for continuing depression, anxiety and then SI, in the face of going off Lamictal and substance abuse. When patient last discharge he says he relapsed right away. Depression said in immediately. Patient got himself sober and stayed sober for the past 8 days however, he had a brief bout of abdominal pain and worried that perhaps Lamictal is hurting his liver so he discontinued it about 5 days ago; he continued to take his other medications as prescribed. Patient's depression worsened, became extremely anxious and relapsed on alcohol for 1 day, became suicidal and so self presents. Patient very much wants to get and stay sober but he finds it difficult to get himself to AA meetings due to depression;he explains that he plans to go but feels so unmotivated in the morning. Patient Agrees that on medication his mood can remain overall good enough but that alcohol relapse always brings about intense self-deprecating thoughts and the return of depression. Patient wants to restart Lamictal; also wants to get back on naltrexone which he said was very helpful for remain sober in the past. Hospital course: 04/06 Mood a little better; no SI. Discussed his struggles with self-deprecating thoughts and how depression really overwhelms his motivation. Discussed again how patient will plan to go to an AA meeting in the morning, wants to but that morning will just feel so unmotivated and tired; he eventually he gives up trying to make himself go, feels worse about himself and depressive, alcohol issues recycle. Discussed options and patient has no history of other drug abuse. Discussed various medication options that might be helpful including adding Adderall which can augment antidepressant medication and help with both motivation and sleepiness. Senior Medical Technologist discussed risks/side effects of this medication including but not limited to it exacerbating anxiety or causing tachycardia; patient reviewed all the medication an intervention trials he has had in the past and feels that if this was able to help him get to an AA meeting the potential benefit is worth the potential risk. 04/07 patient feels that Adderall has been helpful, does not feel tired and more able to engage; no side effects. Patient continues to have intermittent bouts of anxiety but is able to be redirected or talk himself out of it. Increasing hopefulness towards sobriety. 04/10 reports feeling better, good mood, no SI; says adderall seems to be helping citing feeling wakeful, focused and engaged; pt said normally he'd feel tired and would be taking naps during the day, which he has not done since starting Adderall; he also denies any med side-effects. Sleeping and eating well. Wants to get on Vivitrol once outpt -Pt discussed aftercare plans and he's optimistic about pursuing sobriety; discussed plan for inevitable, knowing that at some point in future, he will again get triggered, feel depressed and be crave alchohol...and how he will instead reach out for help, support instead of alcohol. -continue tx plan and dispo planning 04/11 Patient reports that he is doing good and feeling increasingly optimistic about remains stable during aftercare. Hopeful about sobriety. Discussed medications. For clonazepam he says has been taking 1 mg b.i.d. for years; discussed how nighttime medications may make him sleepy and he does not need it and that sometimes it taking in the morning may make him feel more tired and less motivated. Patient agrees to break it up into clonazepam 0.5 mg q.i.d. and make it p.r.n. so he only takes it when he feels the need. Clonidine helps with anxiety overall and insomnia and propranolol prescribed for elevated heart rate Patient will have moments where he gets anxious but no panic and anxiety subsides on its own; sleeping well, eating well, attending groups, appropriate with peers and staff; remains in good behavioral and impulse control Plan: CV Q 15 minute checks Change clonazepam to 0.5 mg q.i.d. p.r.n. (rather than have it 1 mg b.i.d. scheduled) Continue Adderall XL 10 mg q.a.m. Continue Lamictal 25 mg q.h.s. Continue naltrexone (discussed Antabuse however patient wants to restart naltrexone) LFTs trending toward normal continue to discuss aftercare,IOP Patient educated on: diagnosis, medication risk/benefits, substance abuse and therapeutic strategies Informed Consent: understands Reason for continued inpatient stay Substantial Risk for: stable for discharge Time Spent With Patient Time: Total time managing care of this patient today ____ minutes.
[2023-04-11 18:00] VITALS: BP 121/70; PULSE 66; RESP 16; TEMP 36.4; O2SAT 97
[2023-04-11] MEDS: traZODone HCL 50 MG TABLET PO (20:56)
[2023-04-11] MEDS: OLANZapine 10 MG TABLET PO (20:56)
[2023-04-11] MEDS: Propranolol HCL 10 MG TABLET PO (20:56)
[2023-04-11] MEDS: lamoTRIgine 25 MG TABLET PO (20:56)
[2023-04-12] MEDS: Dextroamphetamine/Amphetamine XR 10 MG CAP.ER.24H PO (08:17)
[2023-04-12] MEDS: cloNIDine HCL 0.1 MG TABLET PO ×2 (08:17→20:45)
[2023-04-12] MEDS: FLUoxetine HCl 20 MG CAPSULE 80 MG PO (08:18)
[2023-04-12] MEDS: Naltrexone HCl 50 MG TABLET PO (08:18)
[2023-04-12 08:45] VITALS: BP 142/82; PULSE 55; RESP 16; TEMP 36.3; O2SAT 99
[2023-04-12] MEDS: clonazePAM 0.5 MG TABLET PO (09:00)
[2023-04-12 11:31] VITALS: BP 110/61; PULSE 80
--- NOTE | 2023-04-12 12:18 | HO.PSYCHPN ---
Subjective Subjective Date of Service: 04/12/23 Reason For Visit: depression/SI Interim History: met with patient; discussed with team Reports feeling good, good mood, future oriented, looking for to discharge tomorrow and optimistic about continued stability. Sleeping and eating well. Discussed intermittent bradycardia which ticket writer thinks is likely due to increased clonidine use; patient has been missing doses of propranolol due to bradycardia; he denies any side effects. Since he was 1st started on this for bouts of tachycardia, would like to keep taking propranolol but agrees to lower propranolol dose to 5 mg. Mental Status Exam Mental Status Exam Narrative: Pt is alert and oriented; behavior is cooperative, friendly and calm; patient is not in distress; dressed in casual attire, tattoos on arms, neck, scruffy but adequate hygiene; mood is described as good and affect congruent; eye contact appropriate; Speech is normal rate, volume and prosody and not pressured; no psychomotor agitation/retardation present; thought process is organized and goal directed; Thought content is on tx, staying sober; otherwise pertinent to relevant topics and without any delusional content, paranoid ideations or grandiosity; denies any SI/HI. There is no evidence of perceptual disturbance. Patients insight and judgment fair Diagnostics Vital Signs (24Hr): Vital Signs - 24 hr 04/11/23 18:00 04/12/23 08:45 04/12/23 11:31 Temperature 97.6 F 97.3 F Pulse Rate 66 55 80 Respiratory Rate 16 16 Blood Pressure 121/70 142/82 H 110/61 Pulse Oximetry 97 99 Oxygen Delivery Method Room Air Room Air BMI result Body Mass Index 33.9 Labs 04/03/23 12:19 04/03/23 12:19 Medications Medications Current Medications Al Hydroxide/Mg Hydroxide (Magnesium Hydrox/Alum Hydrox 30 Ml Oral.Susp) 30 ml PO Q6H PRN PRN Reason: Heartburn/Nausea Amphetamine/Dextroamphetamine (Dextroamphetamine/Amphetamine Xr 10 Mg Cap.Er.24h) 10 mg PO DAILY [facility] Last Admin: 04/12/23 08:17 Dose: 10 mg Clonazepam (Clonazepam 0.5 Mg Tablet) 0.5 mg PO QID PRN PRN Reason: anxiety Last Admin: 04/12/23 09:00 Dose: 0.5 mg Clonidine HCl (Clonidine Hcl 0.1 Mg Tablet) 0.1 mg PO BID [facility]; Protocol Last Admin: 04/12/23 08:17 Dose: 0.1 mg Fluoxetine HCl (Fluoxetine Hcl 20 Mg Capsule) 80 mg PO DAILY [facility] Last Admin: 04/12/23 08:18 Dose: 80 mg Hydroxyzine HCl (Hydroxyzine Hcl 25 Mg Tablet) 25 mg PO Q6H PRN PRN Reason: Anxiety Last Admin: 04/08/23 16:49 Dose: 25 mg Lamotrigine (Lamotrigine 25 Mg Tablet) 25 mg PO BEDTIME [facility] Last Admin: 04/11/23 20:56 Dose: 25 mg Lidocaine (Lidocaine 4 % Patch Adh..Patch) 1 patch TRANSDERMA DAILY PRN; Protocol PRN Reason: Pain, Mild (Pain Scale 1-3) Last Admin: 04/10/23 11:43 Dose: 1 patch Magnesium Hydroxide (Milk Of Magnesia 30 Ml Oral.Susp) 30 ml PO DAILY PRN PRN Reason: Constipation Naltrexone HCl (Naltrexone Hcl 50 Mg Tablet) 50 mg PO DAILY [facility] Last Admin: 04/12/23 08:18 Dose: 50 mg Nicotine (Nicotine 21 Mg Patch.Td24) 21 mg TRANSDERMA DAILY PRN PRN Reason: smoking cessation Nicotine Polacrilex (Nicotine Polacrilex 2 Mg Gum) 4 mg BUCCAL Q2H PRN PRN Reason: Nicotine Cravings Last Admin: 04/06/23 13:29 Dose: 2 mg Olanzapine (Olanzapine 10 Mg Tablet) 10 mg PO BEDTIME [facility] Last Admin: 04/11/23 20:56 Dose: 10 mg Propranolol HCl (Propranolol Hcl 10 Mg Tablet) 10 mg PO BID [facility]; Protocol Last Admin: 04/12/23 08:18 Dose: Not Given Trazodone HCl (Trazodone Hcl 50 Mg Tablet) 50 mg PO BEDTIME [facility] Last Admin: 04/11/23 20:56 Dose: 50 mg Trazodone HCl (Trazodone Hcl 50 Mg Tablet) 50 mg PO BEDTIME [facility] PRN PRN Reason: Insomnia Allergies Allergies Allergy/AdvReac Type Severity Reaction Status Date / Time mirtazapine [MIRTAZAPINE] Allergy Intermediate UNKNOWN Verified 01/27/23 17:42 sulfamethoxazole Allergy Unknown RASH Verified 01/27/23 17:42 [From BACTRIM] trimethoprim [From BACTRIM] Allergy Unknown RASH Verified 01/27/23 17:42 Assessment & Plan Assessment & Plan (1) MDD (major depressive disorder), recurrent episode, severe: Qualifiers: Psychotic features: without psychotic features Qualified Code(s): F33.2 - Major depressive disorder, recurrent severe without psychotic features Status: Acute Code(s): F33.2 - Major depressive disorder, recurrent severe without psychotic features (2) Panic disorder: Status: Acute Code(s): F41.0 - Panic disorder [episodic paroxysmal anxiety] (3) Obsessive compulsive disorder: Qualifiers: Obsessive-compulsive disorder type: unspecified Qualified Code(s): F42.9 - Obsessive-compulsive disorder, unspecified Status: Acute Code(s): F42.9 - Obsessive-compulsive disorder, unspecified (4) Alcohol use disorder, severe, in early remission: Status: Acute Code(s): F10.21 - Alcohol dependence, in remission (5) Sleep apnea: Status: Acute Code(s): G47.30 - Sleep apnea, unspecified Plan Patient is a 42-year-old male with history of depression, anxiety/panic attacks, JESSICA and alcohol abuse, recently discharged from on 02/27/23 who presents again for continuing depression, anxiety and then SI, in the face of going off Lamictal and substance abuse. When patient last discharge he says he relapsed right away. Depression said in immediately. Patient got himself sober and stayed sober for the past 8 days however, he had a brief bout of abdominal pain and worried that perhaps Lamictal is hurting his liver so he discontinued it about 5 days ago; he continued to take his other medications as prescribed. Patient's depression worsened, became extremely anxious and relapsed on alcohol for 1 day, became suicidal and so self presents. Patient very much wants to get and stay sober but he finds it difficult to get himself to AA meetings due to depression;he explains that he plans to go but feels so unmotivated in the morning. Patient Agrees that on medication his mood can remain overall good enough but that alcohol relapse always brings about intense self-deprecating thoughts and the return of depression. Patient wants to restart Lamictal; also wants to get back on naltrexone which he said was very helpful for remain sober in the past. Hospital course: 04/06 Mood a little better; no SI. Discussed his struggles with self-deprecating thoughts and how depression really overwhelms his motivation. Discussed again how patient will plan to go to an AA meeting in the morning, wants to but that morning will just feel so unmotivated and tired; he eventually he gives up trying to make himself go, feels worse about himself and depressive, alcohol issues recycle. Discussed options and patient has no history of other drug abuse. Discussed various medication options that might be helpful including adding Adderall which can augment antidepressant medication and help with both motivation and sleepiness. Silk Weaver discussed risks/side effects of this medication including but not limited to it exacerbating anxiety or causing tachycardia; patient reviewed all the medication an intervention trials he has had in the past and feels that if this was able to help him get to an AA meeting the potential benefit is worth the potential risk. 04/07 patient feels that Adderall has been helpful, does not feel tired and more able to engage; no side effects. Patient continues to have intermittent bouts of anxiety but is able to be redirected or talk himself out of it. Increasing hopefulness towards sobriety. 04/10 reports feeling better, good mood, no SI; says adderall seems to be helping citing feeling wakeful, focused and engaged; pt said normally he'd feel tired and would be taking naps during the day, which he has not done since starting Adderall; he also denies any med side-effects. Sleeping and eating well. Wants to get on Vivitrol once outpt -Pt discussed aftercare plans and he's optimistic about pursuing sobriety; discussed plan for inevitable, knowing that at some point in future, he will again get triggered, feel depressed and be crave alchohol...and how he will instead reach out for help, support instead of alcohol. -continue tx plan and dispo planning 04/11 Patient reports that he is doing good and feeling increasingly optimistic about remains stable during aftercare. Hopeful about sobriety. Discussed medications. For clonazepam he says has been taking 1 mg b.i.d. for years; discussed how nighttime medications may make him sleepy and he does not need it and that sometimes it taking in the morning may make him feel more tired and less motivated. Patient agrees to break it up into clonazepam 0.5 mg q.i.d. and make it p.r.n. so he only takes it when he feels the need. Clonidine helps with anxiety overall and insomnia and propranolol prescribed for elevated heart rate Patient will have moments where he gets anxious but no panic and anxiety subsides on its own; sleeping well, eating well, attending groups, appropriate with peers and staff; remains in good behavioral and impulse control 04/12 Reports feeling good, good mood, future oriented, looking for to discharge tomorrow and optimistic about continued stability. Sleeping and eating well. Discussed intermittent bradycardia which ticket writer thinks is likely due to increased clonidine use; patient has been missing doses of propranolol due to bradycardia; he denies any side effects. Since he was 1st started on this for bouts of tachycardia, would like to keep taking propranolol but agrees to lower propranolol dose to 5 mg. Plan: CV Q 15 minute checks Change clonazepam to 0.5 mg q.i.d. p.r.n. (rather than have it 1 mg b.i.d. scheduled) Continue Adderall XL 10 mg q.a.m. Continue Lamictal 25 mg q.h.s. Lower propranolol to 5 mg b.i.d. Continue naltrexone (discussed Antabuse however patient wants to restart naltrexone) LFTs trending toward normal continue to discuss aftercare,IOP Patient educated on: diagnosis, medication risk/benefits and medical condition Informed Consent: understands Reason for continued inpatient stay Substantial Risk for: stable for discharge Time Spent With Patient Time: Total time managing care of this patient today ____ minutes.
--- NOTE | 2023-04-12 17:08 | PM.PSYDC ---
DS: Providers Provider Date of Service: 04/12/23 Date of admission: 04/04/23 14:26 Date of discharge: 04/12/23 Primary care physician: Quan Baker MD Attending physician on admission: Ken Bonilla Attending physician on discharge: Ken Bonilla DS: Diagnosis Discharge Diagnosis (1) MDD (major depressive disorder), recurrent episode, severe: Status: Acute (2) Panic disorder: Status: Acute (3) Obsessive compulsive disorder: Status: Acute (4) Alcohol use disorder, severe, in early remission: Status: Acute (5) Sleep apnea: Status: Acute DS: Medications Discharge Medications Home Medications: Previous Rx's Medication Instructions Recorded clonazepam 1 mg tablet See Rx Instructions .Route 04/12/23 .COMPLEX #60 tabs clonidine HCl 0.1 mg tablet 0.01 mg (0.1 x 0.1 mg) PO BID 30 04/12/23 days #60 tabs dextroamphetamine-amphetamine ER 10 mg PO DAILY 30 days #30 caps 04/12/23 10 mg 24hr capsule,extend release (Adderall XR) fluoxetine 40 mg capsule 80 mg (2 x 40 mg) PO DAILY 30 days 04/12/23 #60 caps hydroxyzine HCl 25 mg tablet 25 mg PO Q6H PRN Anxiety 30 days 04/12/23 #90 tabs lidocaine 4 % topical patch 1 patch transdermal DAILY PRN 04/12/23 (Lidocaine Pain Relief) lower back Pain, Mild (Pain Scale 1-3) 30 days #30 ea naltrexone 50 mg tablet 50 mg PO DAILY 15 days #15 tabs 04/12/23 nicotine (polacrilex) 4 mg gum 4 mg buccal Q2H PRN nicotine 04/12/23 cravings 30 days #100 ea olanzapine 10 mg tablet 10 mg PO BEDTIME 30 days #30 tabs 04/12/23 propranolol 10 mg tablet 5 mg (1/2 x 10 mg) PO BID 30 days 04/12/23 #15 tabs trazodone 50 mg tablet 50 mg PO BEDTIME 30 days #30 tabs 04/12/23 Mental Status Exam Mental Status Exam Narrative: Pt is alert and oriented; behavior is cooperative, friendly and calm; patient is not in distress; dressed in casual attire, tattoos on arms, neck, scruffy but adequate hygiene; mood is described as good and affect congruent; eye contact appropriate; Speech is normal rate, volume and prosody and not pressured; no psychomotor agitation/retardation present; thought process is organized and goal directed; Thought content is on tx, staying sober; otherwise pertinent to relevant topics and without any delusional content, paranoid ideations or grandiosity; denies any SI/HI. There is no evidence of perceptual disturbance. Patients insight and judgment fair Data Data Completed and Pending Completed studies during hospitalization [Text1]: 04/07/23 08:24 Total Bilirubin 0.8 Direct Bilirubin 0.2 AST 48 H ALT 115 H Alkaline Phosphatase 94 Total Protein 7.9 Albumin 5.0 DS: Summary Hospital Course Hospital Course: Patient is a 42-year-old male with history of depression, anxiety/panic attacks, JESSICA and alcohol abuse, recently discharged from on 02/27/23 who presents again for continuing depression, anxiety and then SI, in the face of going off Lamictal and substance abuse. When patient last discharge he says he relapsed right away. Depression said in immediately. Patient got himself sober and stayed sober for the past 8 days however, he had a brief bout of abdominal pain and worried that perhaps Lamictal is hurting his liver so he discontinued it about 5 days ago; he continued to take his other medications as prescribed. Patient's depression worsened, became extremely anxious and relapsed on alcohol for 1 day, became suicidal and so self presents. Patient very much wants to get and stay sober but he finds it difficult to get himself to AA meetings due to depression;he explains that he plans to go but feels so unmotivated in the morning. Patient Agrees that on medication his mood can remain overall good enough but that alcohol relapse always brings about intense self-deprecating thoughts and the return of depression. Patient wants to restart Lamictal; also wants to get back on naltrexone which he said was very helpful for remain sober in the past. Hospital course: 04/06 Mood a little better; no SI. Discussed his struggles with self-deprecating thoughts and how depression really overwhelms his motivation. Discussed again how patient will plan to go to an AA meeting in the morning, wants to but that morning will just feel so unmotivated and tired; he eventually he gives up trying to make himself go, feels worse about himself and depressive, alcohol issues recycle. Discussed options and patient has no history of other drug abuse. Discussed various medication options that might be helpful including adding Adderall which can augment antidepressant medication and help with both motivation and sleepiness. Auto Wash Buffer discussed risks/side effects of this medication including but not limited to it exacerbating anxiety or causing tachycardia; patient reviewed all the medication an intervention trials he has had in the past and feels that if this was able to help him get to an AA meeting the potential benefit is worth the potential risk. 04/07 patient feels that Adderall has been helpful, does not feel tired and more able to engage; no side effects. Patient continues to have intermittent bouts of anxiety but is able to be redirected or talk himself out of it. Increasing hopefulness towards sobriety. 04/10 reports feeling better, good mood, no SI; says adderall seems to be helping citing feeling wakeful, focused and engaged; pt said normally he'd feel tired and would be taking naps during the day, which he has not done since starting Adderall; he also denies any med side-effects. Sleeping and eating well. Wants to get on Vivitrol once outpt -Pt discussed aftercare plans and he's optimistic about pursuing sobriety; discussed plan for inevitable, knowing that at some point in future, he will again get triggered, feel depressed and be crave alchohol...and how he will instead reach out for help, support instead of alcohol. -continue tx plan and dispo planning 04/11 Patient reports that he is doing good and feeling increasingly optimistic about remains stable during aftercare. Hopeful about sobriety. Discussed medications. For clonazepam he says has been taking 1 mg b.i.d. for years; discussed how nighttime medications may make him sleepy and he does not need it and that sometimes it taking in the morning may make him feel more tired and less motivated. Patient agrees to break it up into clonazepam 0.5 mg q.i.d. and make it p.r.n. so he only takes it when he feels the need. Clonidine helps with anxiety overall and insomnia and propranolol prescribed for elevated heart rate Patient will have moments where he gets anxious but no panic and anxiety subsides on its own; sleeping well, eating well, attending groups, appropriate with peers and staff; remains in good behavioral and impulse control 04/12 Reports feeling good, good mood, future oriented, looking for to discharge tomorrow and optimistic about continued stability. Sleeping and eating well. Discussed intermittent bradycardia which marine underwriter thinks is likely due to increased clonidine use; patient has been missing doses of propranolol due to bradycardia; he denies any side effects. Since he was 1st started on this for bouts of tachycardia, would like to keep taking propranolol but agrees to lower propranolol dose to 5 mg. Pt felt ready for discharge. He was in good mood, with noticeably brighter affect, optimistic about sobriety and feeling good about aftercare plan. Anxiety much less as well and no panic. His plan is to go to an AA meeting today. Throughout time on unit, pt remained in good behavioral and impulse control, appropriate with peers and staff and engaged in treatment. While he remains vulnerable to relapse and decompensation, this is a chronic issue that won't resolve w/ longer stay on inpt unit. Pt is not in imminent risk for harm to self or others and appropriate to continue treatment in the community. Time spent discussing smoking cessation with patient: 3 to 10 minutes Status at Discharge Functional status at discharge: independent ambulation Overall status at discharge: patient is back to baseline Time Spent with Patient Time attestation: Total time managing care of this patient today ____ minutes. Time spent: Less than 30 minutes Discharge Plan Discharge Anticipated Discharge Date/Time: 04/13/23 23:30 Patient Disposition: Home, Self-Care Discharge Diagnosis: Bipolar disorder I, recurrent, severe most recent episode depressed in full remission Referrals: Elke Ortiz [facility] [Other] - 04/14/23 2:30 pm (Initial Intake for Intensive outpatient program for substance use Initial appointment is by telephone ) [facility] [Other] - 04/17/23 2:00 pm (Discharge appointment with comprehensive care for medication assisted treatment, Vivitrol. ) Ana Lilia Mcfarlane: (therapist): [facility] [Other] - 04/17/23 3:00 pm (Hospital Discharge Appointment with Therapist ) Jaylin Fay: [facility] (psychiatry) [Other] - 04/25/23 1:00 pm (Patient hospital discharge appointment with psychiatrist Appointment by telephone ) [facility] (AA): [facility] [Other] - 04/13/23 6:30 pm (Information for AA meeting 04/13/23. Patient seeking to attend AA meeting following discharge from [facility].) Quan Baker MD [Primary Care Provider] - 1 Week (office will call us back with f/u or call pt. with f/u appointment.) Discharge Medications: New clonazepam 1 mg tablet See Rx Instructions .ROUTE .COMPLEX Qty: 60 0RF Rx Instructions: take 1/2 tab as needed for anxiety/panic, up to 4x a day dextroamphetamine-amphetamine [Adderall XR] 10 mg Capsule,Extended Release 24hr 10 mg PO DAILY 30 Days Qty: 30 0RF Rx Instructions: Partial Fill upon patient request. hydroxyzine HCl 25 mg Tablet 25 mg PO Q6H PRN (Reason: Anxiety) 30 Days Qty: 90 1RF naltrexone 50 mg Tablet 50 mg PO DAILY 15 Days Qty: 15 1RF lidocaine [Lidocaine Pain Relief] 4 % Adhesive Patch,Medicated 1 patch transdermal DAILY PRN (Reason: lower back Pain, Mild (Pain Scale 1-3)) 30 Days Qty: 30 1RF Protocol: Apply to: Apply to: Back lamotrigine 25 mg Tablet See Rx Instructions .ROUTE .COMPLEX Qty: 32 0RF Rx Instructions: take 1 tab at bedtime for 6 more days, then take 2 tabs at bedtime lamotrigine [Subvenite] 100 mg tablet 100 mg PO BEDTIME 30 Days Qty: 30 0RF Rx Instructions: start on 05/04/23 (after having taken 50mg for 14 days) Continued fluoxetine 40 mg capsule 80 mg PO DAILY 30 Days Qty: 60 1RF clonidine HCl 0.1 mg tablet 0.01 mg PO BID 30 Days Qty: 60 1RF trazodone 50 mg tablet 50 mg PO BEDTIME 30 Days Qty: 30 1RF nicotine (polacrilex) 4 mg gum 4 mg buccal Q2H PRN (Reason: nicotine cravings) 30 Days Qty: 100 1RF Changed olanzapine 10 mg tablet 10 mg PO BEDTIME 30 Days Qty: 30 1RF propranolol 10 mg tablet 5 mg PO BID 30 Days Qty: 15 1RF Discontinued clonazepam 1 mg tablet 1 mg PO BID Discharge Orders: Discharge Order (Routine); Ordered 04/13/23 Ordered By: Ken Bonilla Diet: Regular diet Activity on Discharge: As tolerated Stand Alone Forms: Patient Portal Discharge page, Community Support Care Plan Goals: Maintain mood and safe behaviors Take medications as prescribed Continue to pursue sobriety Practice coping skills Continue with outpatient providers and reach out to them as needed Health Concerns: Mood stability and behaviors Sobriety Plan of Treatment: Follow up with your PCP, psychiatric provider and other outpatient providers regarding above concerns Take medications as prescribed For Lamictal: Take 25 mg tablet at bedtime for 6 more days Then... take two 25 mg tablets (for total of 50mg) at bedtime for 14 days Then... on 05/04/2023 start 100 mg tablets Assessment: Risk assessment at time of discharge:? Patient was interviewed prior to discharge and found to be fully oriented and without any SI or HI. Patient has improved insight and judgment and wants to continue treatment. Patient is not in imminent risk of harm to self or others and has a safety plan that includes presenting to the closest ER or calling 911 if feeling unsafe.? Patient has been observed closely by nursing and unit staff throughout admission; patient has not engaged in any behaviors that suggest dangerousness to self or others and has demonstrated appropriate behaviors and impulse control
[2023-04-12 20:43] VITALS: BP 103/70; PULSE 79
[2023-04-12] MEDS: lamoTRIgine 25 MG TABLET PO (20:45)
[2023-04-12] MEDS: OLANZapine 10 MG TABLET PO (20:45)
[2023-04-12] MEDS: traZODone HCL 50 MG TABLET PO (20:45)
[2023-04-13 08:00] VITALS: BP 135/75; PULSE 69; TEMP 36.6; O2SAT 98
[2023-04-13] MEDS: Dextroamphetamine/Amphetamine XR 10 MG CAP.ER.24H PO (08:48)
[2023-04-13] MEDS: FLUoxetine HCl 20 MG CAPSULE 80 MG PO (08:48)
[2023-04-13] MEDS: Naltrexone HCl 50 MG TABLET PO (08:48)
[2023-04-13] MEDS: cloNIDine HCL 0.1 MG TABLET PO (08:48)
[2023-04-13] MEDS: Propranolol HCL 10 MG TABLET 5 MG PO (12:21)
== END 2023-04-13 11:35 | disposition home or self-care (01) | DRG 885 ==
LOC: HO.ED 16:25 → HO.PM5 04-04 14:36
PROVIDERS: Physician Assistant; Admitting Provider Psychiatry & Neurology Psychiatry; Emergency Provider Emergency Medicine; PCP Internal Medicine; Visit Provider Psychiatry & Neurology Psychiatry
DX: F33.2 Major depressive disorder, recurrent severe without psychotic features (principal); R45.851 Suicidal ideations; F17.210 Nicotine dependence, cigarettes, uncomplicated; Z71.6 Tobacco abuse counseling; F41.0 Panic disorder [episodic paroxysmal anxiety]; F42.9 Obsessive-compulsive disorder, unspecified; F10.20 Alcohol dependence, uncomplicated; G47.30 Sleep apnea, unspecified; Z91.148 Patient's other noncompliance with medication regimen for other reason; Z20.822 Contact with and (suspected) exposure to COVID-19; Z79.899 Other long term (current) drug therapy
CPT/HCPCS: 36415; 80053; 80076; 80307; 81003; 85025; 87635; 93005; 94660; 99285; S9485

== ENCOUNTER → 2023-04-04 14:26 | Outpatient (BNV) | payer MEDICARE, MEDICAID, SELFPAY | PROVIDERS: Admitting Provider Psychiatry & Neurology Psychiatry; Emergency Provider Emergency Medicine; PCP Internal Medicine; Visit Provider Psychiatry & Neurology Psychiatry | DX: F33.2 Major depressive disorder, recurrent severe without psychotic features (principal); F41.0 Panic disorder [episodic paroxysmal anxiety]; F42.9 Obsessive-compulsive disorder, unspecified; F10.21 Alcohol dependence, in remission; G47.30 Sleep apnea, unspecified | CPT/HCPCS: 90792; 99231; 99232; 99238 ==

== ENCOUNTER 2023-04-17 13:51 | Outpatient (AMB) | payer MEDICARE, MEDICAID, SELFPAY ==
--- NOTE | 2023-04-17 14:00 | MHC.OFFVIS ---
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: No Allergies mirtazapine [MIRTAZAPINE] Allergy (Intermediate, Verified 04/17/23 14:02) UNKNOWN sulfamethoxazole [From BACTRIM] Allergy (Unknown, Verified 04/17/23 14:02) RASH trimethoprim [From BACTRIM] Allergy (Unknown, Verified 04/17/23 14:02) RASH Medication List - Last Reconciled 04/17/23 by Suzanne Odom, DILLON clonazepam 1 mg PO BID clonidine HCl 0.01 mg (0.1 x 0.1 mg) PO BID 30 days fluoxetine 80 mg (2 x 40 mg) PO DAILY 30 days hydroxyzine HCl 25 mg PO Q6H PRN 30 days lamotrigine take 1 tab at bedtime for 6 more days, then take 2 tabs at bedtime lamotrigine (Subvenite) 100 mg PO BEDTIME 30 days lidocaine 4% (Lidocaine Pain Relief) 1 patch See Protocol transdermal DAILY PRN 30 days naltrexone 50 mg PO DAILY 15 days nicotine (polacrilex) 4 mg buccal Q2H PRN 30 days olanzapine 10 mg PO BEDTIME 30 days propranolol 5 mg (1/2 x 10 mg) PO BID 30 days trazodone 50 mg PO BEDTIME 30 days Do you need a note to return to daycare/school/sports/work: No HPI MAT INTAKE HPI Details Pt presents to clinic to intake for AUD Referred from - d/c on 04/13/23 During his stay on [facility] was started on naltrexone Endorses strong support system consisting of his 3 sisters and 2 of his best friends. Is stably housed with stable mode of transportation Substance Use History Reports he has consumed alcohol daily for the past 3 years with the exception of recovery time from May 2022-October 2022. Started drinking in his 30's Daily use consists of 6-10 beers daily. Has not had an alcoholic beverage in 2 weeks. Denies any illicit subtance use Smokes 1/2 pack of cigarettes daily x 20 years. Has never been to [facility] Has been to the [facility] PHP with [facility] x 2 Is currently doing IOP through [facility]. Is currently attending AA a few times weekly. Behavioral Health History Currently followed by his therapist- Ana Lilia Mcfarlane and psychiatrist Dr. Jaylin Fay diagnosis hx: anxiety, depression, and panic disorder Denies hx of other addictive behaviors Reports that he has been psychiatrically hospitalized 18-19 times With the most recent on M5 in March 2023. Reports history of self harming behaviors and suicidal thoughts- denies both presently. Medical History Allergies: mirtazipine, bactrim Has a history of HTN controlled with medications History of asthma controlled with PRN albuterol inhaler Has hx of septoplasty in 2012, and hernia repair in 1984 Reports chronic pain due to osteoarthritis to his lower spine. Pt PCP is Dr. Quan Baker- last seen by PCP office approx 3 weeks ago per pt. [facility] Medical History (Updated 04/07/23 @ 15:37 by Ken Bonilla MD) Sleep apnea MDD (major depressive disorder), recurrent episode, severe Alcohol use disorder, mild, in controlled environment, abuse Transaminitis Tachycardia HTN (hypertension) Social History Household Members: None Household Members Other:: lives alone Housing: Apartment Do you presently have visiting nurse or other home services: No Alcohol intake: current Alcohol intake frequency: 3 or more drinks per day Alcohol type: hard liquor Patient Tobacco Use Status: Current everyday Tobacco user Tobacco use type: Cigarette Cigarette Packs Per Day: 0.25 Cigarettes Per Day: 5.0 Years Smoked: 14 e-Cigarette/Vaping Use: Never Used Second Hand Smoke Exposure: No service: No Sexual orientation: Straight/Heterosexual Review of Systems Const Reports as per HPI Physical Exam Vital Signs: Last Vital Signs Pulse 72 04/17/23 14:01 BP 112/72 04/17/23 14:01 Pulse Ox 98 04/17/23 14:01 Oxygen Delivery Method Room Air 04/17/23 14:01 Const General: cooperative and no acute distress Orientation/consciousness: patient oriented x3 Resp Effort & Inspection: normal respiratory effort Skin General skin exam: no rashes or lesions noted Neuro General: patient oriented x3 Psych Appearance: grossly normal Mental Status: mental status grossly normal Speech and movement: Normal speech and movement present Attitude: cooperative Assessment & Plan Assessment & Plan (1) Alcohol use disorder, severe, in early remission: Code(s): F10.21 - Alcohol dependence, in remission Plan: Vivitrol injection ordered- reviewed with pt the clinic will call him to arrange his next appointment when injection arrives. 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 Relapse prevention discussed. Follow up in 1 week Medications: New naltrexone microspheres ER (Vivitrol) 380 mg IM Q4W 1 ea 5RF Discontinued dextroamphetamine-amphetamine 10 mg ER (Adderall XR) Partial Fill upon patient request. Discontinued Reason: Patient no longer taking 10 mg PO DAILY 30 days 30 caps 0RF Coding Level of Care Code New Pt Level 4 (26957) Diagnoses Alcohol use disorder, severe, in early remission F10.21
[2023-04-17 14:01] VITALS: BP 112/72; PULSE 72; O2SAT 98
== END 2023-04-17 15:04 | disposition home or self-care (01) ==
PROVIDERS: PCP Internal Medicine; Visit Provider Nurse Practitioner Family
DX: F10.21 Alcohol dependence, in remission (principal)
CPT/HCPCS: 99204

== ENCOUNTER → 2023-04-17 13:51 | Outpatient (BNVA) | payer MEDICARE, MEDICAID, SELFPAY | PROVIDERS: PCP Internal Medicine; Visit Provider Nurse Practitioner Family | DX: F10.21 Alcohol dependence, in remission (principal) | CPT/HCPCS: 99202 ==

== ENCOUNTER 2023-04-22 18:01 | Emergency (ER) | payer MEDICARE, MEDICAID, SELFPAY ==
[2023-04-22 18:18] VITALS: BP 130/86; PULSE 90; RESP 16; TEMP 37.4; O2SAT 95; BMI 33.9
--- NOTE | 2023-04-22 18:18 | ED.PSYCH ---
HPI - Psych General Chief Complaint: Psychiatric Symptoms Stated Complaint: crisis eval Time Seen by Provider: 04/22/23 20:07 Source: patient, RN notes reviewed and old records reviewed Mode of arrival: ambulatory Limitations: no limitations History of Present Illness HPI Narrative: 32-year-old male past medical history significant for anxiety, depression, bipolar disorder, sleep apnea he alcohol abuse presents for evaluation of suicidal ideation Patient reports he was recently admitted to here He reports that he was sober for 18 days from alcohol He relapsed 2 days ago while driving past the liquor store He denies any inciting incidents Patient states that since relapsing and drinking heavily he has had increased depressive and suicidal thoughts Patient reports that he collects knives and plans to slit his wrists with his collection knives Related Data Home Medications Medication Instructions Recorded Confirmed clonazepam 1 mg tablet 1 mg PO QID PRN Anxiety 04/17/23 04/22/23 lamotrigine 25 mg tablet 50 mg PO BEDTIME 04/22/23 04/22/23 Previous Rx's Medication Instructions Recorded clonidine HCl 0.1 mg tablet 0.01 mg (0.1 x 0.1 mg) PO BID 30 04/12/23 days #60 tabs fluoxetine 40 mg capsule 80 mg (2 x 40 mg) PO DAILY 30 days 04/12/23 #60 caps hydroxyzine HCl 25 mg tablet 25 mg PO Q6H PRN Anxiety 30 days 04/12/23 #90 tabs lidocaine 4 % topical patch 1 patch transdermal DAILY PRN 04/12/23 (Lidocaine Pain Relief) lower back Pain, Mild (Pain Scale 1-3) 30 days #30 ea naltrexone 50 mg tablet 50 mg PO DAILY 15 days #15 tabs 04/12/23 nicotine (polacrilex) 4 mg gum 4 mg buccal Q2H PRN nicotine 04/12/23 cravings 30 days #100 ea olanzapine 10 mg tablet 10 mg PO BEDTIME 30 days #30 tabs 04/12/23 propranolol 10 mg tablet 5 mg (1/2 x 10 mg) PO BID 30 days 04/12/23 #15 tabs trazodone 50 mg tablet 50 mg PO BEDTIME 30 days #30 tabs 04/12/23 naltrexone microspheres 380 mg 380 mg IM Q4W #1 ea 04/17/23 intramuscular suspension,extended release (Vivitrol) Allergies Allergy/AdvReac Type Severity Reaction Status Date / Time mirtazapine [MIRTAZAPINE] Allergy Intermediate UNKNOWN Verified 04/22/23 18:26 sulfamethoxazole Allergy Unknown RASH Verified 04/22/23 18:26 [From BACTRIM] trimethoprim [From BACTRIM] Allergy Unknown RASH Verified 04/22/23 18:26 Review of Systems Constitutional: Constitutional: Denies chills and Denies fever(s) Eyes: Eyes: Denies blurry vision ENT: Denies sore throat Cardiovascular: Cardiovascular: Denies chest pain and Denies dyspnea Respiratory: Respiratory: Denies cough and Denies dyspnea Gastrointestinal: Gastrointestinal: Denies abdominal pain, Denies nausea and Denies vomiting Musculoskeletal: Musculoskeletal: Denies back pain Integumentary/Breasts: Skin/Breast: Denies rash Psychiatric: Psychiatric: Reports depression, Denies homicidal ideation and Reports suicidal ideation PMFSH Past Medical History Medical History (Updated 04/22/23 @ 21:14 by Rafael Mattson) Alcohol abuse Sleep apnea MDD (major depressive disorder), recurrent episode, severe Alcohol use disorder, mild, in controlled environment, abuse Transaminitis Tachycardia HTN (hypertension) Social History Household Members: None Household Members Other:: lives alone Housing: Apartment Do you presently have visiting nurse or other home services: No Alcohol intake: current Alcohol intake frequency: 3 or more drinks per day Alcohol type: hard liquor Patient Tobacco Use Status: Current everyday Tobacco user Tobacco use type: Cigarette Cigarette Packs Per Day: 0.25 Cigarettes Per Day: 5.0 Years Smoked: 14 e-Cigarette/Vaping Use: Never Used Second Hand Smoke Exposure: No Advance Directives: No Advance Directives Information Provided: No service: No Sexual orientation: Straight/Heterosexual Physical Exam Vital Signs: Vital Signs: Last Vital Signs Temp 98.3 F 04/23/23 07:29 Pulse 84 04/23/23 07:29 Resp 16 04/23/23 07:29 BP 138/98 H 04/23/23 07:29 Pulse Ox 97 04/23/23 07:29 O2 Del Method Room Air 04/23/23 07:29 BMI result Body Mass Index 33.9 Const: General: healthy appearing, comfortable, no acute distress, alert and awake Nutritional Appearance: well nourished Orientation/consciousness: patient oriented x3 HEENT: Head: Yes normocephalic and Yes atraumatic Eyes: Eyelids: Yes eyelids normal Conjunctivae: conjunctivae normal Sclerae: sclerae normal Corneas: corneas normal Pupils: Equal, round and reactive pupils present EOM: EOMs intact bilaterally Neck: Neck: Yes full ROM Resp: Effort & Inspection: normal respiratory effort, able to speak in complete sentences and not labored Cardio: Rate: regular rate Rhythm: regular rhythm Skin: General skin exam: elasticity normal Neuro: General: patient oriented x3 Cranial nerves: Yes Equal, round and reactive pupils present and Yes Bilaterally intact EOM present Cognition (Neuro): normal cognition Psych: Appearance: grossly normal and well kempt Mental Status: mental status grossly normal Speech and movement: Normal speech and movement present Affect: Sad affect present Attitude: cooperative Thought process: Normal thought process present Course Course Course Narrative: TAMMY:?42 year old male w/ pmhx of alcohol dependence, MDD, JESSICA, Bipolar 1 disorder presents to the ED today for crisis evaluation. Reports suicidal ideation x2 days with plan to slit his wrists. Denies HI. Denies AH/VH/TH. Admits to being sober from etoh x18 days, released from rehab on 04/12. Reports relapse yesterday. Last drink was 3 hours ago. Reports drinking liquor and beer this am, believes around 10 drinks. No hx of withdrawal seizures. Denies illicit substance use. No physical complaints in ED. PE: tearful. No nystagmus, asterixis, tongue fasciculation, tremors. Plan: medical clearance Full HPI, ROS and PE to be performed by the primary ED provider. Reevaluation(s) Reevaluation #1: Physician observation continued. VS stable, no acute events overnight, pending CARE team input for placement Medications Administered Generic Name Dose Route Start Last Admin Trade Name Freq PRN Reason Stop Dose Admin Amphetamine/Dextroamphetamine 10 mg 04/23/23 09:00 04/23/23 07:20 Dextroamphetamine/Amphetamine Xr 10 Mg Cap.Er.24h PO Not Given DAILY MARTINEZ Clonazepam 0.5 mg 04/22/23 21:36 04/23/23 05:35 Clonazepam 1 Mg Tablet PO 0.5 mg QID PRN Administration Anxiety Hydroxyzine HCl 25 mg 04/22/23 21:10 04/23/23 05:35 Hydroxyzine Hcl 25 Mg Tablet PO 25 mg Q6H PRN Administration Anxiety Lamotrigine 50 mg 04/23/23 21:00 04/22/23 22:12 Lamotrigine 25 Mg Tablet PO 50 mg BEDTIME MARTINEZ Administration Olanzapine 10 mg 04/23/23 21:00 04/22/23 22:12 Olanzapine 10 Mg Tablet PO 10 mg BEDTIME MARTINEZ Administration Propranolol HCl 5 mg 04/23/23 09:00 04/22/23 22:12 Propranolol Hcl 10 Mg Tablet PO 5 mg BID MARTINEZ Administration Protocol Trazodone HCl 50 mg 04/23/23 21:00 04/22/23 22:12 Trazodone Hcl 50 Mg Tablet PO 50 mg BEDTIME MARTINEZ Administration Medical Decision Making Medical Decision Making [facility] Narrative: 42-year-old male presents for evaluation depression with suicidal thoughts. He also reports relapse of alcohol abuse. He has no somatic complaints. Patient is medically cleared for cardiac evaluation. Differential Diagnosis Differential Diagnoses: The differential diagnosis associated with the presentation includes Alcohol abuse Depression Suicidal ideation Bipolar disorder Lab Data [facility] Lab Attestation statement: I reviewed the patient's lab results. No leukocytosis, no significant anemia. No electrolyte abnormalities. Normal renal function. 04/22/23 19:18 04/22/23 19:18 Labs: Lab Results 04/22/23 04/22/23 Range/Units 18:45 19:18 WBC 8.5 (4.8-10.8) X10*3/uL RBC 5.77 (4.60-5.80) X10*6/uL Hgb 17.9 (14.0-18.0) g/dl Hct 50.6 (42.0-52.0) % MCV 87.7 (80.0-98.0) fL MCH 31.0 (27.0-33.0) pg MCHC 35.4 (31.0-36.0) g/dl RDW 12.7 (11.0-16.0) % Plt Count 266 (160-400) X10*3/uL MPV 9.7 (9.4-12.4) fL Immature Gran % (Auto) 0.2 (0.0-0.4) % Neut % (Auto) 62.5 (45-73) % Lymph % (Auto) 25.6 (20-40) % [place] % (Auto) 7.5 (2-11) % Eos % (Auto) 3.7 (0-4) % Baso % (Auto) 0.5 (0-2) % Lymph # (Auto) 2.2 (1.2-4.9) X10*3/uL [place]ison # (Auto) 0.6 (0.1-1.2) X10*3/uL Eos # (Auto) 0.3 (0.0-0.4) X10*3/uL Baso # (Auto) 0.0 (0.0-0.2) X10*3/uL Abs Immat Gran (auto) 0.02 (0.00-0.03) X10*3/uL Absolute Neuts (auto) 5.3 (2.0-8.3) x10*3/uL Absolute Nucleated RBC 0.000 (0.0-0.012) X10*3/uL Nucleated RBC % (auto) 0.0 (0.0-0.2) /100WBC Sodium 145 (135-145) mmol/L Potassium 3.8 (3.3-5.1) mmol/L Chloride 108 (96-108) mmol/L Carbon Dioxide 24 (22-29) mmol/L Anion Gap 17 (12-20) BUN 6 L (9-16) mg/dL Creatinine 0.91 (0.5-1.4) mg/dL Estim Creat Clear Calc 138.8 Estimated GFR > 60 Random Glucose 97 (60-115) mg/dL Calcium 10.2 (8.4-10.2) mg/dL Magnesium 2.2 (1.6-2.6) mg/dL Lipase 32 (8-78) U/L Urine Color Yellow Urine Appearance Cloudy Urine pH 5.5 (5.0-9.0) Ur Specific [place] 1.015 (1.005-1.025) Urine Protein Negative (Neg-Trace) mg/dL Urine Glucose (UA) Negative (Negative) mg/dL Urine Ketones Negative (Negative) mg/dL Urine Blood Negative (Negative) Urine Nitrite Negative (Negative) Ur Leukocyte Esterase Negative (Negative) Urine Opiates Screen Not Detected (Not Detect) Urine Fentanyl Screen Not Detected (Not Detect) Ur Barbiturates Screen Not Detected (Not Detect) Ur Phencyclidine Scrn Not Detected (Not Detect) Ur Amphetamines Screen Not Detected (Not Detect) U Benzodiazepines Scrn Not Detected (Not Detect) Urine Cocaine Screen Not Detected (Not Detect) U Marijuana (THC) Screen Not Detected (Not Detect) Ethyl Alcohol 149 mg/dL Discharge Plan Discharge Clinical Impression: Depression, Suicidal ideation, Alcohol abuse Patient Disposition: Still a Patient Prescriptions: No Action hydroxyzine HCl 25 mg Tablet 25 mg PO Q6H PRN (Reason: Anxiety) 30 Days Qty: 90 1RF naltrexone 50 mg Tablet 50 mg PO DAILY 15 Days Qty: 15 1RF lidocaine [Lidocaine Pain Relief] 4 % Adhesive Patch,Medicated 1 patch transdermal DAILY PRN (Reason: lower back Pain, Mild (Pain Scale 1-3)) 30 Days Qty: 30 1RF Protocol: Apply to: Apply to: Back fluoxetine 40 mg capsule 80 mg PO DAILY 30 Days Qty: 60 1RF clonidine HCl 0.1 mg tablet 0.01 mg PO BID 30 Days Qty: 60 1RF trazodone 50 mg tablet 50 mg PO BEDTIME 30 Days Qty: 30 1RF olanzapine 10 mg tablet 10 mg PO BEDTIME 30 Days Qty: 30 1RF propranolol 10 mg tablet 5 mg PO BID 30 Days Qty: 15 1RF nicotine (polacrilex) 4 mg gum 4 mg buccal Q2H PRN (Reason: nicotine cravings) 30 Days Qty: 100 1RF lamotrigine 25 mg tablet 50 mg PO BEDTIME Rx Instructions: take 1 tab at bedtime for 6 more days, then take 2 tabs at bedtime clonazepam 1 mg tablet 1 mg PO QID MDD 2mg PRN (Reason: Anxiety) Vivitrol 380 mg suspension,extended rel recon 380 mg IM Q4W Qty: 1 5RF Interventions: Walsh-Suicide Risk Severity Scale Last Done: 04/22/23 18:37
--- NOTE | 2023-04-22 18:36 | PC.NURSE ---
patient is A+O. Patient brought over from triage with SI with a plan after discharging from our inpatient psych unit 8 days ago. Changeover completed. Belongings secured.
[2023-04-22 18:51] LABS: Appearance Urine Cloudy; Color Urine Yellow; Glucose Urine UA Negative (Negative); Leukocyte Esterase Urine Negative (Negative); Nitrite Urine Negative (Negative); PH 5.5 (5.0-9.0); Specific Gravity - Urine 1.015 (1.005-1.025); Urine Blood Negative (Negative); Urine Ketones Negative (Negative); Urine Protein Negative (Neg-Trace)
[2023-04-22 18:59] LABS: Amphetamine Screen Urine Not Detected (Not Detect); Barbiturates, Urine Not Detected (Not Detect); Benzodiazepines Screen Urine Not Detected (Not Detect); Cannabinoid Screen Urine Not Detected (Not Detect); Cocaine Screen Urine Not Detected (Not Detect); Fentanyl, urine Not Detected (Not Detect); Opiate Screen Urine Not Detected (Not Detect); Phencyclidine Screen Urine Not Detected (Not Detect)
[2023-04-22 19:23] LABS: MANUAL DIFF FLAG NO
[2023-04-22 19:24] LABS: Basophils Percent Auto 0.5 % (0-2); Eosinophils Absolute Auto 0.3 X10*3/uL (0.0-0.4); Eosinophils Percent Auto 3.7 % (0-4); Hematocrit 50.6 % (42.0-52.0); Hemoglobin 17.9 g/dl (14.0-18.0); Imm Gran Abs Auto 0.02 X10*3/uL (0.00-0.03); Imm Gran Pct Auto 0.2 % (0.0-0.4); Lymphocytes Absolute Auto 2.2 X10*3/uL (1.2-4.9); Lymphocytes Percent Auto 25.6 % (20-40); Mean Corpuscular HGB Conc 35.4 g/dl (31.0-36.0); Mean Corpuscular Volume 87.7 fL (80.0-98.0); Mean Platelet Volume 9.7 fL (9.4-12.4); Monocytes Absolute Auto 0.6 X10*3/uL (0.1-1.2); Monocytes Percent Auto 7.5 % (2-11); Neutrophils Absolute Auto 5.3 x10*3/uL (2.0-8.3); Neutrophils Percent Auto 62.5 % (45-73); Platelet Count 266 X10*3/uL (160-400); Red Blood Count 5.77 X10*6/uL (4.60-5.80); Red Cell Distribution Width 12.7 % (11.0-16.0); White Blood Count 8.5 X10*3/uL (4.8-10.8)
--- NOTE | 2023-04-22 19:28 | PC.NURSE ---
patient at rest in his room periodically using phone out of room ad tati... maintains safe behavior.
[2023-04-22 19:35] LABS: Ethanol 149 mg/dL
[2023-04-22 19:37] LABS: Anion Gap 17 (12-20); Blood Urea Nitrogen 6 mg/dL (9-16); Calcium 10.2 mg/dL (8.4-10.2); Carbon Dioxide 24 mmol/L (22-29); Chloride 108 mmol/L (96-108); Creatinine Clr Calc Pharmacy 138.8; Estimated Glomerular Filt Rate > 60; Glucose Random 97 mg/dL (60-115); Lipase 32 U/L (8-78); Magnesium 2.2 mg/dL (1.6-2.6); Potassium 3.8 mmol/L (3.3-5.1); Sodium 145 mmol/L (135-145)
[2023-04-22] MEDS: traZODone HCL 50 MG TABLET PO (22:12)
[2023-04-22] MEDS: OLANZapine 10 MG TABLET PO (22:12)
[2023-04-22] MEDS: lamoTRIgine 25 MG TABLET 50 MG PO (22:12)
[2023-04-22] MEDS: Propranolol HCL 10 MG TABLET 5 MG PO (22:12)
[2023-04-22] MEDS: clonazePAM 1 MG TABLET 0.5 MG PO (22:14)
[2023-04-22 22:17] VITALS: BP 145/95; PULSE 90; RESP 18; TEMP 36.9; O2SAT 95
[2023-04-23] MEDS: clonazePAM 1 MG TABLET 0.5 MG PO ×2 (05:35→11:38)
[2023-04-23] MEDS: hydrOXYzine HCL 25 MG TABLET PO ×2 (05:35→11:38)
--- NOTE | 2023-04-23 05:59 | PC.NURSE ---
Pt woke up with a start, complaining of rapid heart rate. HR was 112, gave pt PRN anxiety medications and rechecked. HR now 90.
[2023-04-23 07:29] VITALS: BP 138/98; PULSE 84; RESP 16; TEMP 36.8; O2SAT 97
[2023-04-23] MEDS: cloNIDine HCL 0.1 MG TABLET PO ×2 (07:35→21:43)
[2023-04-23] MEDS: Propranolol HCL 10 MG TABLET 5 MG PO ×2 (07:35→22:12)
[2023-04-23] MEDS: Naltrexone HCl 50 MG TABLET PO (07:36)
[2023-04-23] MEDS: FLUoxetine HCl 20 MG CAPSULE 80 MG PO (07:36)
[2023-04-23 12:03] LABS: COVID-19 Test Negative (Negative); IDNOW Serial# 9DB6401D
[2023-04-23 14:04] VITALS: BP 136/88; PULSE 66; RESP 16; TEMP 36.3; O2SAT 97
[2023-04-23 21:49] VITALS: BP 123/59; PULSE 72; RESP 14; O2SAT 96
[2023-04-23] MEDS: lamoTRIgine 25 MG TABLET 50 MG PO (22:12)
[2023-04-23] MEDS: traZODone HCL 50 MG TABLET PO (22:12)
[2023-04-23] MEDS: OLANZapine 10 MG TABLET PO (22:13)
--- NOTE | 2023-04-24 04:27 | PC.NURSE ---
Pt sleeping at the bedside in no apparent distress. Breaths are even regular and unlabored with equal chest rises. Monitoring is ongoing.
[2023-04-24 06:22] VITALS: BP 129/70; PULSE 66; RESP 17; TEMP 36.9; O2SAT 95
[2023-04-24] MEDS: FLUoxetine HCl 20 MG CAPSULE 80 MG PO (08:06)
[2023-04-24] MEDS: clonazePAM 1 MG TABLET 0.5 MG PO (08:07)
[2023-04-24] MEDS: cloNIDine HCL 0.1 MG TABLET PO (08:07)
[2023-04-24] MEDS: Naltrexone HCl 50 MG TABLET PO (08:07)
[2023-04-24] MEDS: Propranolol HCL 10 MG TABLET 5 MG PO (08:08)
--- NOTE | 2023-04-24 08:53 | PC.NURSE ---
pt's sister told him that she wasn't going to [facility] [address] the pt. the pt states that he would like to go to detox willingly. pt has been calm and cooperative and pleasant with staff. reports anxiety and klonopin given as requested, pt states that he never gets withdrawl symptoms and other than anxiety, he reports feeling fine
--- NOTE | 2023-04-24 11:38 | MHC.CARE ---
CARE Team completed mental status update on patient, he does not require a psychiatric admission, decline offer for detox. He plans to meet his sister at the [facility] to obtain a [address] [facility] for himself. ED provider, Dr. Teague updated.
== END 2023-04-24 11:40 | disposition home or self-care (01) ==
PROVIDERS: Physician Assistant Medical; Emergency Provider Emergency Medicine Emergency Medical Services; PCP Internal Medicine
DX: R45.851 Suicidal ideations (principal); F32.A Depression, unspecified; F10.10 Alcohol abuse, uncomplicated; Y90.6 Blood alcohol level of 120-199 mg/100 ml; Z11.52 Encounter for screening for COVID-19; F41.9 Anxiety disorder, unspecified; F41.0 Panic disorder [episodic paroxysmal anxiety]; F42.9 Obsessive-compulsive disorder, unspecified; F17.210 Nicotine dependence, cigarettes, uncomplicated; Z79.899 Other long term (current) drug therapy
CPT/HCPCS: 36415; 80048; 80307; 81003; 83690; 83735; 85025; 87635; 99284; 99285; S9485

== ENCOUNTER 2023-06-29 18:13 | Emergency (ER) | payer MEDICARE, MEDICAID, SELFPAY ==
--- NOTE | ~2023-06-29 | CT_ITS ---
EXAMINATION: CT cervical spine wo IV con, CT head/brain wo IV con INDICATION INFORMATION: Reason for Exam fall down stairs COMPARISON: CT head and cervical spine 10/17/2016 TECHNIQUE: Separate noncontrast CT examinations of the head and cervical spine were performed. Coronal and sagittal images were created for each examination at the technologist workstation. This CT examination was performed using dose optimization techniques as appropriate, variously including the following: *Automated exposure control *Adjustment of mA and/or kV according to patient size (this includes techniques or standardized protocols for targeted exams where dose is matched to indication/reason for exam; i.e. extremities or head) *Use of iterative reconstruction technique DLP: 1389 mGy-cm FINDINGS: Head: No acute osseous or soft tissue abnormality. The mastoids are clear. Right maxillary sinus mucosal thickening. In addition There is no evidence of acute intracranial hemorrhage or territorial infarction. No abnormal mass effect or midline shift is seen. [place] to white matter differentiation is well preserved. No extra-axial fluid collections are identified. No hydrocephalus. No significant volume loss. There is no abnormal attenuation within the brain parenchyma. Cervical spine: There is no evidence of acute cervical spine fracture. Vertebral bodies remain normal in height. Cervical straightening. No significant spondylolisthesis. Mild multilevel cervical spondylosis. No pre- or paravertebral soft tissue abnormality is identified. Visualized portions of the lung apices are unremarkable. The thyroid gland is unremarkable. CT/CT head/brain wo IV con IMPRESSION: 1. No acute intracranial abnormality. 2. No cervical spine fracture or traumatic malalignment.
--- NOTE | ~2023-06-29 | CT_ITS ---
EXAMINATION: CT cervical spine wo IV con, CT head/brain wo IV con INDICATION INFORMATION: Reason for Exam fall down stairs COMPARISON: CT head and cervical spine 10/17/2016 TECHNIQUE: Separate noncontrast CT examinations of the head and cervical spine were performed. Coronal and sagittal images were created for each examination at the technologist workstation. This CT examination was performed using dose optimization techniques as appropriate, variously including the following: *Automated exposure control *Adjustment of mA and/or kV according to patient size (this includes techniques or standardized protocols for targeted exams where dose is matched to indication/reason for exam; i.e. extremities or head) *Use of iterative reconstruction technique DLP: 1389 mGy-cm FINDINGS: Head: No acute osseous or soft tissue abnormality. The mastoids are clear. Right maxillary sinus mucosal thickening. In addition There is no evidence of acute intracranial hemorrhage or territorial infarction. No abnormal mass effect or midline shift is seen. [place] to white matter differentiation is well preserved. No extra-axial fluid collections are identified. No hydrocephalus. No significant volume loss. There is no abnormal attenuation within the brain parenchyma. Cervical spine: There is no evidence of acute cervical spine fracture. Vertebral bodies remain normal in height. Cervical straightening. No significant spondylolisthesis. Mild multilevel cervical spondylosis. No pre- or paravertebral soft tissue abnormality is identified. Visualized portions of the lung apices are unremarkable. The thyroid gland is unremarkable. CT/CT cervical spine wo IV con IMPRESSION: 1. No acute intracranial abnormality. 2. No cervical spine fracture or traumatic malalignment.
[2023-06-29 18:30] VITALS: BP 140/90; BP 150/92; PULSE 102; PULSE 106; RESP 18; TEMP 36.8; O2SAT 95; O2SAT 96; BMI 33.9
--- NOTE | 2023-06-29 18:30 | ECG_ITS ---
Test Reason : ETOH Blood Pressure : / mmHG Vent. Rate : 103 BPM Atrial Rate : 103 BPM P-R Int : 164 ms QRS Dur : 088 ms QT Int : 372 ms P-R-T Axes : 049 -40 036 degrees QTc Int : 487 ms Sinus tachycardia Possible Left atrial enlargement Left axis deviation Nonspecific T wave abnormality Abnormal ECG When compared with ECG of 03-APR-2023 06:23, No significant change was found Referred By: Mariama Saucedo Electronically Signed By:DESI DE LEÓN MD
--- NOTE | 2023-06-29 18:43 | ED_ITS ---
HPI - Fall General Chief Complaint: ETOH/Substance Use Stated Complaint: ETOH,FELL DOWN STAIRS, ABRAISION ON HEAD,COLLARED Time Seen by Provider: 06/29/23 18:16 Source: patient and EMS Mode of arrival: EMS Limitations: other (Acute alcohol intoxication) History of Present Illness HPI Narrative: Patient is a 43-year-old male who presents to the emergency department via EMS coming from home. Patient was reportedly 60 days sober from alcohol, he admits to consuming 8 shots of alcohol today and then subsequently falling down 8 stairs. He denies any loss of consciousness, or use of anticoagulants. He is unable to tell me exactly what caused him to fall he states ?I forgot?. He reports that he believes his sister may have called EMS as she was home at that time. He denies any physical complaints including headache, dizziness, neck pain, chest pain, shortness of breath, numbness or tingling of the extremities, pain in any of his extremities. Related Data Home Medications Medication Instructions Recorded Confirmed bupropion HCl 100 mg tablet,12 hr 100 mg PO DAILY 06/29/23 06/29/23 sustained-release clonazepam 1 mg tablet 1 mg PO BID PRN Anxiety 06/29/23 06/29/23 clonidine HCl 0.1 mg tablet 0.1 mg PO Q12H PRN Agitation 06/29/23 06/29/23 divalproex 500 mg tablet,extended 500 mg PO BID 06/29/23 06/29/23 release 24 hr fluoxetine 20 mg capsule 60 mg PO DAILY 06/29/23 06/29/23 hydroxyzine HCl 50 mg tablet 50 mg PO BEDTIME 06/29/23 06/29/23 propranolol 10 mg tablet 10 mg PO BID 06/29/23 06/29/23 Previous Rx's Medication Instructions Recorded olanzapine 10 mg tablet 10 mg PO BEDTIME 30 days #30 tabs 04/12/23 Allergies Allergy/AdvReac Type Severity Reaction Status Date / Time mirtazapine [MIRTAZAPINE] Allergy Intermediate UNKNOWN Verified 06/29/23 18:24 sulfamethoxazole Allergy Unknown RASH Verified 06/29/23 18:24 [From BACTRIM] trimethoprim [From BACTRIM] Allergy Unknown RASH Verified 06/29/23 18:24 Review of Systems 2 Review of Systems: Yes all other systems are reviewed and are negative PMFSH Past Medical History Attestation statement: The following information was validated with the patient. Source: old records reviewed Medical History Alcohol abuse Sleep apnea MDD (major depressive disorder), recurrent episode, severe Alcohol use disorder, mild, in controlled environment, abuse Transaminitis Tachycardia HTN (hypertension) Social History Social History Household Members: None Household Members Other:: lives alone Housing: Apartment Do you presently have visiting nurse or other home services: No Alcohol intake: current Alcohol intake frequency: former alcohol drinker Alcohol type: hard liquor Patient Tobacco Use Status: Current everyday Tobacco user Tobacco use type: Cigarette Cigarette Packs Per Day: 0.25 Cigarettes Per Day: 5.0 Years Smoked: 14 e-Cigarette/Vaping Use: Never Used Second Hand Smoke Exposure: No Use of substances other than those prescribed or required for medical reasons: No Advance Directives: No Advance Directives Information Provided: No service: No Sexual orientation: Straight/Heterosexual Physical Exam 2 Vital Signs: Vital Signs: Last Vital Signs Temp 98.8 F 06/30/23 00:13 Pulse 104 H 06/30/23 00:13 Resp 18 06/29/23 18:30 BP 120/68 06/30/23 00:13 Pulse Ox 91 L 06/30/23 00:13 O2 Del Method Room Air 06/30/23 00:13 BMI result Body Mass Index 33.9 Appearance: Alert.?Oriented to person, place and time. No acute distress.?Normal affect. Head: Normocephalic. Midline parietal scalp superficial abrasion Eyes: Pupils equal, round and reactive to light. EOMI. Conjunctiva and sclera normal? No Millan sign noted. No raccoon eyes noted ENT: No septal hematoma, nares patent bilaterally. External auditory canal normal tympanic membrane pearly terrell and intact bilaterally. Dentition normal, no fractured teeth. No lesions or lacerations of oropharynx. Uvula midline. Moist mucous membranes. Neck: Normal inspection.? Neck supple.??No palpable tenderness, step-off, deformities. CVS: Heart sounds normal. Normal heart rate and rhythm.? Pulses normal.?? Respiratory: No respiratory distress.? Lung sounds clear to auscultation bilaterally?? Abdomen: Soft and non-tender. Normoactive bowel sounds. ?? Skin: Skin warm and dry.? Normal skin color.? Normal skin turgor.?? Extremities: No lower extremity edema.? Neuro: Moves all extremities spontaneously. Sensation intact bilaterally. CN II- XII intact. No focal neuro deficits. Course Reevaluation(s) Reevaluation #1: Nursing staff is advised me that patient is endorsing SI without providing any specific plan. One-to-one patient observer was placed, and will refer to care team. CBC is without leukocytosis or anemia. CMP reveals a mild hypernatremia of 147, BUN 3 creatinine 0.86, most likely due to dehydration, less likely diabetes insipidus, patient received normal saline IV fluid. CT of the head and cervical spine without acute intracranial pathology or fracture/subluxation. Time: 19:26 Medications Administered Generic Name Dose Route Start Last Admin Trade Name Freq PRN Reason Stop Dose Admin Clonazepam 1 mg 06/30/23 00:11 06/30/23 01:04 Clonazepam 1 Mg Tablet PO 1 mg BID PRN Administration Anxiety Divalproex Sodium 500 mg 06/30/23 00:15 06/30/23 01:04 Divalproex Sodium Er 500 Mg Tab.Er.24h PO 500 mg BID MARTINEZ Administration Hydroxyzine HCl 50 mg 06/30/23 00:15 06/30/23 01:05 Hydroxyzine Hcl 50 Mg Tablet PO 50 mg BEDTIME MARTINEZ Administration Olanzapine 10 mg 06/30/23 00:15 06/30/23 01:04 Olanzapine 10 Mg Tablet PO 10 mg BEDTIME MARTINEZ Administration Discontinued Medications Generic Name Dose Route Start Last Admin Trade Name Freq PRN Reason Stop Dose Admin Sodium Chloride 1,000 mls @ 999 mls/hr 06/29/23 20:15 06/29/23 22:05 Ns IV 06/29/23 21:15 Infused .Q1H1M MARTINEZ Infusion Medical Decision Making Medical Decision Making MDM Narrative: Patient is a 43-year-old male with past medical history of depression, anxiety, OCD, bipolar, alcohol use disorder presenting to emergency department for evaluation after a fall as per HPI. Hard cervical spine collar is in place. He does appear acutely intoxicated, but he is alert and oriented x3 and able to answer questions appropriately. He is following commands appropriately. Has no focal neurological deficits. Given acute intoxication plan to obtain CT of the head/cervical spine to exclude ICH, SDH, fracture, subluxation, in addition to basic labs including an ethanol level. Differential Diagnosis Differential Diagnoses: The differential diagnosis associated with the presentation includes (See narrative above) Admission/Observation Consideration of admission/observation: Escalation of care including admission/observation considered (Will likely require physician observation until clinically sober for safe disposition) Lab Data MDM Lab Attestation statement: I reviewed the patient's lab results. (See course narrative) 06/29/23 19:03 06/29/23 19:03 Labs: Lab Results 06/29/23 06/29/23 06/29/23 Range/Units 19:03 19:04 20:17 WBC 6.7 (4.8-10.8) X10*3/uL RBC 5.44 (4.60-5.80) X10*6/uL Hgb 16.3 (14.0-18.0) g/dl Hct 47.4 (42.0-52.0) % MCV 87.1 (80.0-98.0) fL MCH 30.0 (27.0-33.0) pg MCHC 34.4 (31.0-36.0) g/dl RDW 12.4 (11.0-16.0) % Plt Count 232 (160-400) X10*3/uL MPV 8.9 L (9.4-12.4) fL Immature Gran % (Auto) 0.3 (0.0-0.4) % Neut % (Auto) 55.6 (45-73) % Lymph % (Auto) 33.0 (20-40) % [place] % (Auto) 8.6 (2-11) % Eos % (Auto) 2.0 (0-4) % Baso % (Auto) 0.5 (0-2) % Lymph # (Auto) 2.2 (1.2-4.9) X10*3/uL [place] # (Auto) 0.6 (0.1-1.2) X10*3/uL Eos # (Auto) 0.1 (0.0-0.4) X10*3/uL Baso # (Auto) 0.0 (0.0-0.2) X10*3/uL Abs Immat Gran (auto) 0.02 (0.00-0.03) X10*3/uL Absolute Neuts (auto) 3.7 (2.0-8.3) x10*3/uL Absolute Nucleated RBC 0.000 (0.0-0.012) X10*3/uL Nucleated RBC % (auto) 0.0 (0.0-0.2) /100WBC PT 11.4 (11.1-13.3) SEC INR 0.9 (0.9-1.1) Sodium 147 H (135-145) mmol/L Potassium 3.9 (3.3-5.1) mmol/L Chloride 107 (96-108) mmol/L Carbon Dioxide 25 (22-29) mmol/L Anion Gap 19 (12-20) BUN 3 L (9-16) mg/dL Creatinine 0.86 (0.5-1.4) mg/dL Estim Creat Clear Calc 145.4 Estimated GFR > 60 Random Glucose 117 H (60-115) mg/dL Calcium 9.6 (8.4-10.2) mg/dL Magnesium 1.9 (1.6-2.6) mg/dL Total Bilirubin 0.4 (0.0-1.0) mg/dL AST 16 (5-37) U/L ALT 24 (0-40) U/L Alkaline Phosphatase 65 (39-117) U/L Troponin I High Sens < 2.7 (<3.5-35.0) ng/L Total Protein 7.7 (6.5-8.0) g/dL Albumin 4.8 (3.5-5.0) g/dL Urine Color Urine Appearance Urine pH (5.0-9.0) Ur Specific [place] (1.005-1.025) Urine Protein (Neg-Trace) mg/dL Urine Glucose (UA) (Negative) mg/dL Urine Ketones (Negative) mg/dL Urine Blood (Negative) Urine Nitrite (Negative) Ur Leukocyte Esterase (Negative) Urine Opiates Screen Not Detected (Not Detect) Urine Fentanyl Screen Not Detected (Not Detect) Ur Barbiturates Screen Not Detected (Not Detect) Ur Phencyclidine Scrn Not Detected (Not Detect) Ur Amphetamines Screen Not Detected (Not Detect) U Benzodiazepines Scrn Not Detected (Not Detect) Urine Cocaine Screen Not Detected (Not Detect) U Marijuana (THC) Screen Not Detected (Not Detect) Ethyl Alcohol 224 mg/dL 06/29/23 Range/Units 20:20 WBC (4.8-10.8) X10*3/uL RBC (4.60-5.80) X10*6/uL Hgb (14.0-18.0) g/dl Hct (42.0-52.0) % MCV (80.0-98.0) fL MCH (27.0-33.0) pg MCHC (31.0-36.0) g/dl RDW (11.0-16.0) % Plt Count (160-400) X10*3/uL MPV (9.4-12.4) fL Immature Gran % (Auto) (0.0-0.4) % Neut % (Auto) (45-73) % Lymph % (Auto) (20-40) % [place] % (Auto) (2-11) % Eos % (Auto) (0-4) % Baso % (Auto) (0-2) % Lymph # (Auto) (1.2-4.9) X10*3/uL [place] # (Auto) (0.1-1.2) X10*3/uL Eos # (Auto) (0.0-0.4) X10*3/uL Baso # (Auto) (0.0-0.2) X10*3/uL Abs Immat Gran (auto) (0.00-0.03) X10*3/uL Absolute Neuts (auto) (2.0-8.3) x10*3/uL Absolute Nucleated RBC (0.0-0.012) X10*3/uL Nucleated RBC % (auto) (0.0-0.2) /100WBC PT (11.1-13.3) SEC INR (0.9-1.1) Sodium (135-145) mmol/L Potassium (3.3-5.1) mmol/L Chloride (96-108) mmol/L Carbon Dioxide (22-29) mmol/L Anion Gap (12-20) BUN (9-16) mg/dL Creatinine (0.5-1.4) mg/dL Estim Creat Clear Calc Estimated GFR Random Glucose (60-115) mg/dL Calcium (8.4-10.2) mg/dL Magnesium (1.6-2.6) mg/dL Total Bilirubin (0.0-1.0) mg/dL AST (5-37) U/L ALT (0-40) U/L Alkaline Phosphatase (39-117) U/L Troponin I High Sens (<3.5-35.0) ng/L Total Protein (6.5-8.0) g/dL Albumin (3.5-5.0) g/dL Urine Color Yellow Urine Appearance Clear Urine pH 7.0 (5.0-9.0) Ur Specific [place] 1.010 (1.005-1.025) Urine Protein Negative (Neg-Trace) mg/dL Urine Glucose (UA) Negative (Negative) mg/dL Urine Ketones Negative (Negative) mg/dL Urine Blood Negative (Negative) Urine Nitrite Negative (Negative) Ur Leukocyte Esterase Negative (Negative) Urine Opiates Screen (Not Detect) Urine Fentanyl Screen (Not Detect) Ur Barbiturates Screen (Not Detect) Ur Phencyclidine Scrn (Not Detect) Ur Amphetamines Screen (Not Detect) U Benzodiazepines Scrn (Not Detect) Urine Cocaine Screen (Not Detect) U Marijuana (THC) Screen (Not Detect) Ethyl Alcohol mg/dL Independent Interpretation I performed an independent interpretation of an: EKG and CT Scan Interpretation: Rate:103 Rhythm:? Sinus tachycardia Normal P waves.? Normal MAGGY.?? Normal QRS complex.?? ST T wave :??No ST elevation, no ST depression qTC:487 The study has been interpreted contemporaneously by me. Radiology Impression Discussion of test interpretation with radiology: I have reviewed the radiologist's reading. Radiologist Impression: CT/CT head/brain wo IV con IMPRESSION: 1. No acute intracranial abnormality. 2. No cervical spine fracture or traumatic malalignment. Independent Historian Clinical information obtained from an independent historian. History obtained from or confirmed by: EMS External Record Review External record reviewed: Outpatient record Discharge Plan Discharge Clinical Impression: Acute head injury without loss of consciousness, Fall, Alcohol use disorder Patient Disposition: Still a Patient Prescriptions: No Action olanzapine 10 mg tablet 10 mg PO BEDTIME 30 Days Qty: 30 1RF hydroxyzine HCl 50 mg tablet 50 mg PO BEDTIME bupropion HCl 100 mg tablet sustained-release 12 hr 100 mg PO DAILY propranolol 10 mg tablet 10 mg PO BID fluoxetine 20 mg capsule 60 mg PO DAILY clonazepam 1 mg tablet 1 mg PO BID PRN (Reason: Anxiety) clonidine HCl 0.1 mg tablet 0.1 mg PO Q12H PRN (Reason: Agitation) divalproex 500 mg tablet extended release 24 hr 500 mg PO BID
--- NOTE | 2023-06-29 19:08 | PC.NURSE ---
patient is now endorsing SI without a plan, charge nurse notified- 1:1 sitter at bedside, provider notified
[2023-06-29 19:12] LABS: MANUAL DIFF FLAG NO
[2023-06-29 19:13] LABS: Hematocrit 47.4 % (42.0-52.0); Hemoglobin 16.3 g/dl (14.0-18.0); Imm Gran Pct Auto 0.3 % (0.0-0.4); Mean Corpuscular HGB Conc 34.4 g/dl (31.0-36.0); Mean Corpuscular Volume 87.1 fL (80.0-98.0); Mean Platelet Volume 8.9 fL (9.4-12.4); Monocytes Percent Auto 8.6 % (2-11); Neutrophils Percent Auto 55.6 % (45-73); Platelet Count 232 X10*3/uL (160-400); Red Blood Count 5.44 X10*6/uL (4.60-5.80); Red Cell Distribution Width 12.4 % (11.0-16.0); White Blood Count 6.7 X10*3/uL (4.8-10.8)
[2023-06-29 19:14] LABS: Basophils Percent Auto 0.5 % (0-2); Eosinophils Absolute Auto 0.1 X10*3/uL (0.0-0.4); Imm Gran Abs Auto 0.02 X10*3/uL (0.00-0.03); Lymphocytes Absolute Auto 2.2 X10*3/uL (1.2-4.9); Monocytes Absolute Auto 0.6 X10*3/uL (0.1-1.2); Neutrophils Absolute Auto 3.7 x10*3/uL (2.0-8.3)
[2023-06-29 19:19] LABS: INTERNATIONAL NORM RATIO 0.9 (0.9-1.1); Prothrombin Time 11.4 SEC (11.1-13.3)
[2023-06-29 19:32] LABS: Ethanol 224 mg/dL
[2023-06-29 19:35] LABS: Alanine Aminotransferase 24 U/L (0-40); Albumin Level 4.8 g/dL (3.5-5.0); Alkaline Phosphatase 65 U/L (39-117); Anion Gap 19 (12-20); Aspartate Amino Transferase 16 U/L (5-37); Bilirubin Total 0.4 mg/dL (0.0-1.0); Blood Urea Nitrogen 3 mg/dL (9-16); Calcium 9.6 mg/dL (8.4-10.2); Carbon Dioxide 25 mmol/L (22-29); Chloride 107 mmol/L (96-108); Creatinine Clr Calc Pharmacy 145.4; Estimated Glomerular Filt Rate > 60; Glucose Random 117 mg/dL (60-115); Magnesium 1.9 mg/dL (1.6-2.6); Potassium 3.9 mmol/L (3.3-5.1); Sodium 147 mmol/L (135-145); Total Protein 7.7 g/dL (6.5-8.0)
[2023-06-29 19:44] LABS: Troponin-I High Sensitivity < 2.7 ng/L (<3.5-35.0)
[2023-06-29] MEDS: 0.9 % Sodium Chloride 1,000 ML 999 ML IV (20:15)
--- NOTE | 2023-06-29 20:15 | PC.NURSE ---
c-spine cleared, pt changed over by security, ivf started per order, 1:1 sitter at bedside, will continue to monitor
[2023-06-29 20:34] LABS: Appearance Urine Clear; Color Urine Yellow; Glucose Urine UA Negative (Negative); Leukocyte Esterase Urine Negative (Negative); Nitrite Urine Negative (Negative); Urine Blood Negative (Negative); Urine Ketones Negative (Negative); Urine Protein Negative (Neg-Trace)
[2023-06-29 20:41] LABS: Amphetamine Screen Urine Not Detected (Not Detect); Barbiturates, Urine Not Detected (Not Detect); Benzodiazepines Screen Urine Not Detected (Not Detect); Cannabinoid Screen Urine Not Detected (Not Detect); Cocaine Screen Urine Not Detected (Not Detect); Fentanyl, urine Not Detected (Not Detect); Opiate Screen Urine Not Detected (Not Detect); Phencyclidine Screen Urine Not Detected (Not Detect)
--- NOTE | 2023-06-29 22:48 | PC.NURSE ---
Report given to RN in POD. IV fluids complete.
--- NOTE | 2023-06-29 23:20 | PC.NURSE ---
rec'd patient from main ed completed med rec w patient awaiting continuance of meds by provider
[2023-06-30 00:13] VITALS: BP 120/68; PULSE 104; TEMP 37.1; O2SAT 91
[2023-06-30] MEDS: clonazePAM 1 MG TABLET PO ×2 (01:04→12:03)
[2023-06-30] MEDS: Divalproex Sodium ER 500 MG TAB.ER.24H PO ×2 (01:04→07:15)
[2023-06-30] MEDS: OLANZapine 10 MG TABLET PO (01:04)
[2023-06-30] MEDS: hydrOXYzine HCL 50 MG TABLET PO (01:05)
[2023-06-30 05:34] VITALS: BP 94/63; PULSE 70; RESP 19; TEMP 36.6; O2SAT 94
[2023-06-30 05:48] VITALS: BP 155/104; PULSE 120; RESP 16; TEMP 37.6; O2SAT 95
[2023-06-30] MEDS: cloNIDine HCL 0.1 MG TABLET PO (05:51)
[2023-06-30] MEDS: LORazepam 1 MG TABLET 2 MG PO (06:02)
--- NOTE | 2023-06-30 06:20 | PC.NURSE ---
PT TEARFUL, UPSET THAT HE DRANK YESTERDAY. JUST OUT OF BEING SECT. 35. SISTER UPSET WITH PT, WILL NOT TAKE HIS CALLS. ATTEMPTED TO REACH SISTER AND VOICEMAIL LEFT
--- NOTE | 2023-06-30 07:09 | PC.NURSE ---
Assumed care of pt from previous RN, pt eating breakfast at this time. Denies complaints. Awaiting CARE team follow up.
[2023-06-30] MEDS: Propranolol HCL 10 MG TABLET PO (07:15)
[2023-06-30] MEDS: FLUoxetine HCl 20 MG CAPSULE 60 MG PO (07:15)
--- NOTE | 2023-06-30 11:37 | MHC.CARE ---
Patient has been accepted to [facility] [phone] Lam
--- NOTE | 2023-06-30 12:48 | PHA.MEDREC ---
Pharmacy Consult ? Medication Reconciliation Pharmacy has reviewed the medication reconciliation completed by Laney.
[2023-06-30 15:54] VITALS: BP 131/78; PULSE 100; RESP 14; TEMP 36.6; O2SAT 95
--- NOTE | 2023-06-30 19:02 | PC.NURSE ---
patient appears to be resting comfortably appears in no distress waiting for arrival of ambulance for transfer to [facility]
--- NOTE | 2023-07-05 11:46 | MHC.CARE ---
CARE Team recieved a return call from Rafael Gómez, pts [facility] worker. T/w updated him on placement at [facility].
== END 2023-06-30 19:11 ==
PROVIDERS: Nurse Practitioner Family; Emergency Provider Student in an Organized Health Care Education/Training Program
DX: F10.120 Alcohol abuse with intoxication, uncomplicated (principal); Y90.8 Blood alcohol level of 240 mg/100 ml or more; S09.8XXA Other specified injuries of head, initial encounter; S00.91XA Abrasion of unspecified part of head, initial encounter; W10.8XXA Fall (on) (from) other stairs and steps, initial encounter; R00.0 Tachycardia, unspecified; E87.0 Hyperosmolality and hypernatremia; R45.851 Suicidal ideations; Y93.89 Activity, other specified; Y92.038 Other place in apartment as the place of occurrence of the external cause; Y99.9 Unspecified external cause status; F31.4 Bipolar disorder, current episode depressed, severe, without psychotic features; F41.0 Panic disorder [episodic paroxysmal anxiety]; F41.9 Anxiety disorder, unspecified; I10 Essential (primary) hypertension; G47.30 Sleep apnea, unspecified; F17.210 Nicotine dependence, cigarettes, uncomplicated; Z79.899 Other long term (current) drug therapy; Z91.81 History of falling
CPT/HCPCS: 36415; 70450; 72125; 80053; 80307; 81003; 83735; 84484; 85025; 85610; 93005; 96360; 96361; 99285; S9485

== ENCOUNTER → 2023-06-29 18:30 | Outpatient (BNV) | payer MEDICARE, MEDICAID, SELFPAY | PROVIDERS: Emergency Provider Student in an Organized Health Care Education/Training Program; Visit Provider Internal Medicine Cardiovascular Disease | DX: R94.31 Abnormal electrocardiogram [ECG] [EKG] (principal) | CPT/HCPCS: 93010 ==

== ENCOUNTER 2024-02-29 15:21 | Emergency (ER) | payer MEDICARE, MEDICAID, SELFPAY ==
[2024-02-29 15:50] VITALS: BP 112/74; BP 164/92; PULSE 82; PULSE 86; RESP 16; TEMP 36.6; O2SAT 97; O2SAT 98; BMI 37.3
[2024-02-29 15:58] VITALS: BP 112/74; PULSE 82; RESP 16; TEMP 36.6; O2SAT 97
--- NOTE | 2024-02-29 16:05 | PC.NURSE ---
Pt comes to ED today via EMS after a 911 call. Pt is 8 months sober and drank today as he reports SI, he then drove to family members house to deliver a good bye letter only to find the family was not home and called 911. Pt reports drinking 1 pint liquor and 2 beers. He is A&Ox3 however presents with significant intoxication. He is tearful and continues to report SI. He frequently repeats i'm sorry statements. VSS, afebrile. Pt is very unsteady per EMS report and requires frequent reminder to remain on his stretcher. Urinal given with instruction multiple times. Awaiting provider orders.
[2024-02-29 16:12] LABS: Appearance Urine Clear; Color Urine Yellow; Glucose Urine UA Negative (Negative); Leukocyte Esterase Urine Negative (Negative); Nitrite Urine Negative (Negative); PH 6.5 (5.0-9.0); Specific Gravity - Urine <= 1.005 (1.005-1.025); Urine Blood Negative (Negative); Urine Ketones Negative (Negative); Urine Protein Negative (Neg-Trace)
[2024-02-29 16:19] LABS: Amphetamine Screen Urine Not Detected (Not Detect); Barbiturates, Urine Not Detected (Not Detect); Benzodiazepines Screen Urine Not Detected (Not Detect); Buprenorphine Scr Not Detected (Not Detect); Cannabinoid Screen Urine Not Detected (Not Detect); Cocaine Screen Urine Not Detected (Not Detect); Fentanyl, urine Not Detected (Not Detect); Methadone Screen, Urine Not Detected (Not Detect); Opiate Screen Urine Not Detected (Not Detect); Oxycodone Screen Urine Not Detected (Not Detect); Phencyclidine Screen Urine Not Detected (Not Detect)
--- NOTE | 2024-02-29 16:20 | ED_ITS ---
HPI - General Adult General Chief complaint: ETOH/Substance Use Stated complaint: SI, ETOH Time Seen by Provider: 02/29/24 16:09 Source: patient Mode of arrival: ambulatory Limitations: no limitations History of Present Illness ED Provider: Luisito MOFFETT HPI narrative: 43 yold male with pmh of depression, panic disorder, alcohol abuse disorder, presents to the ED for suicidal ideation and has plan to stab himself. Patient he is suicidal because he misses his neice who he can't visit. Harm himself before in the past. Patient was sober for 7 months from alcohol due to depression was drinking today. Patient drove to family house informed them he was suicidal and called the ambulance and brought him here. There was no, or driving as per EMS report. Related Data Home Medications ?Medication ?Instructions ?Recorded ?Confirmed clonazepam 1 mg tablet 1 mg PO BID PRN Anxiety 06/29/23 03/01/24 clonidine HCl 0.1 mg tablet 0.1 mg PO Q12H PRN Agitation 06/29/23 03/01/24 hydroxyzine HCl 50 mg tablet 50 mg PO BEDTIME 06/29/23 03/01/24 propranolol 10 mg tablet 10 mg PO BID 06/29/23 03/01/24 lamotrigine 200 mg tablet 200 mg PO BID 06/30/23 03/01/24 atorvastatin 20 mg tablet 20 mg PO BEDTIME cholesterol 03/01/24 03/01/24 fluoxetine 40 mg capsule 80 mg PO DAILY 03/01/24 03/01/24 Previous Rx's ?Medication ?Instructions ?Recorded olanzapine 10 mg tablet 10 mg PO BEDTIME 30 days #30 tabs 04/12/23 Allergies Allergy/AdvReac Type Severity Reaction Status Date / Time mirtazapine [MIRTAZAPINE] Allergy Intermediate UNKNOWN Verified 02/29/24 15:52 sulfamethoxazole Allergy Unknown RASH Verified 02/29/24 15:52 [From BACTRIM] trimethoprim [From BACTRIM] Allergy Unknown RASH Verified 02/29/24 15:52 Review of Systems 2 Review of Systems: suicidal and drinking Yes all other systems are reviewed and are negative PMFSH Past Medical History Medical History Alcohol abuse Sleep apnea MDD (major depressive disorder), recurrent episode, severe Alcohol use disorder, mild, in controlled environment, abuse Transaminitis Tachycardia HTN (hypertension) Social History Social History Household Members: None Household Members Other:: lives alone Housing: Apartment Do you presently have visiting nurse or other home services: No Alcohol intake: current Alcohol intake frequency: former alcohol drinker Alcohol type: beer and hard liquor Patient Tobacco Use Status: Current everyday Tobacco user Tobacco use type: Cigarette Cigarette Packs Per Day: 0.25 Cigarettes Per Day: 5.0 Years Smoked: 14 Smoked in Last 30 Days: Yes e-Cigarette/Vaping Use: Never Used Second Hand Smoke Exposure: No Use of substances other than those prescribed or required for medical reasons: No Advance Directives: No Advance Directives Information Provided: No Do you have a plan to hurt others: No Plan service: No Sexual orientation: Straight/Heterosexual Physical Exam ED Vital Signs: Vital Signs - 24 hr 02/29/24 15:50 02/29/24 15:58 02/29/24 18:57 Temperature 98 F 98 F 97.7 F Pulse Rate 82 82 85 Respiratory Rate 16 16 18 Blood Pressure 112/74 112/74 141/81 H Pulse Oximetry 97 97 96 Oxygen Delivery Method Room Air Room Air Room Air 02/29/24 20:08 02/29/24 23:49 03/01/24 06:50 Temperature 97.5 F 98.4 F 98.2 F Pulse Rate 86 88 79 Respiratory Rate 18 16 15 Blood Pressure 119/71 122/74 142/86 H Pulse Oximetry 95 97 97 Oxygen Delivery Method Room Air Room Air Room Air BMI result Body Mass Index 37.3 Const General: cooperative, healthy appearing, comfortable, no acute distress, well developed, alert, awake and Physically active Orientation/consciousness: patient oriented x3 HENMT Head: Yes normal to inspection, Yes No palpable skull fracture present, Yes normocephalic and Yes atraumatic Eyes General: appearance normal, both eyes and all related structures Neck Neck: Yes normal visual inspection, Yes full ROM, Yes no lymphadenopathy, Yes no meningeal signs, Yes trachea midline, Yes supple, No anterior neck swelling and No tender Chest Chest palpation & inspection: normal inspection of the chest and normal palpation of entire chest wall Resp Effort & Inspection: normal respiratory effort and able to speak in complete sentences Auscultation: clear to auscultation bilaterally Cardio Jugular venous distension: no JVD Heart sounds: S1 normal heart sound present and S2 normal heart sound present GI Inspection: Yes normal to inspection Palpation (GI): Soft to palpation, not firm, nontender, no guarding and not rigid General: No CVA tenderness and Yes no CVA tenderness Back/Spine/Pelvis Back: no CVA tenderness, No CVA tenderness and No back tenderness Skin General skin exam: no rashes or lesions noted, elasticity normal and turgor normal Neuro General: patient oriented x3, gait normal, tone normal, moves all extremities, Normal light touch and pain sensation, no meningeal signs, no focal motor deficits, CN's II-XI intact bilaterally and normal sensation to monofilament Extrem Other: Alcohol on breath General: Yes normal to inspection and Yes full ROM Psych Appearance: grossly normal, well kempt and not disheveled Course Reevaluation(s) Reevaluation #1: Physician observation continued. Uneventful night. Vital signs stable. No complaints from nursing overnight. Med reconciliation reviewed and done. Pending disposition. Will continue to monitor. 1-1 sitter at the bed Time: 07:23 Medications Administered Discontinued Medications Generic Name Dose Route Start Last Admin Trade Name Freq PRN Reason Stop Dose Admin Acetaminophen 975 mg 02/29/24 20:34 02/29/24 20:55 Acetaminophen 325 Mg Tablet PO 02/29/24 20:35 975 mg ONCE ONE Administration Clonazepam 1 mg 03/01/24 07:23 03/01/24 08:41 Clonazepam 1 Mg Tablet PO 1 mg BID PRN Administration Anxiety Clonidine HCl 0.1 mg 03/01/24 07:23 03/01/24 08:41 Clonidine Hcl 0.1 Mg Tablet PO 0.1 mg Q12H PRN Administration Agitation Protocol Fluoxetine HCl 80 mg 03/01/24 09:00 03/01/24 08:37 Fluoxetine Hcl 20 Mg Capsule PO 80 mg DAILY MARTINEZ Administration Lamotrigine 200 mg 03/01/24 09:00 03/01/24 08:37 Lamotrigine 100 Mg Tablet PO 200 mg BID MARTINEZ Administration Lorazepam 2 mg 02/29/24 20:34 02/29/24 20:55 Lorazepam 1 Mg Tablet PO 02/29/24 20:35 2 mg ONCE ONE Administration Propranolol HCl 10 mg 03/01/24 09:00 03/01/24 08:37 Propranolol Hcl 10 Mg Tablet PO 10 mg BID MARTINEZ Administration Protocol Medical Decision Making Medical Decision Making [facility] Narrative: 43-year-old male patient has alcohol abuse and depression presents to ED for depressed and being suicidal. Patient denies any auditory/visual hallucinations. Patient admits to drinking. Labs care team consult placed 1:00am. Patient is section 12 and is a bed search Differential Diagnosis Differential Diagnoses: The differential diagnosis associated with the presentation includes (SI depression) Admission/Observation Consideration of admission/observation: Escalation of care including admission/observation considered Lab Data [facility] Lab Attestation statement: I reviewed the patient's lab results. 02/29/24 16:17 02/29/24 16:17 Labs: Lab Results 02/29/24 02/29/24 03/01/24 Range/Units 15:59 16:17 10:54 WBC 10.3 (4.8-10.8) X10*3/uL RBC 5.34 (4.60-5.80) X10*6/uL Hgb 15.7 (14.0-18.0) g/dl Hct 45.1 (42.0-52.0) % MCV 84.5 (80.0-98.0) fL MCH 29.4 (27.0-33.0) pg MCHC 34.8 (31.0-36.0) g/dl RDW 13.0 (11.0-16.0) % Plt Count 238 (160-400) X10*3/uL MPV 9.1 L (9.4-12.4) fL Immature Gran % (Auto) 0.3 (0.0-0.4) % Neut % (Auto) 78.7 H (45-73) % Lymph % (Auto) 16.3 L (20-40) % Foard % (Auto) 3.8 (2-11) % Eos % (Auto) 0.5 (0-4) % Baso % (Auto) 0.4 (0-2) % Lymph # (Auto) 1.7 (1.2-4.9) X10*3/uL Foard # (Auto) 0.4 (0.1-1.2) X10*3/uL Eos # (Auto) 0.1 (0.0-0.4) X10*3/uL Baso # (Auto) 0.0 (0.0-0.2) X10*3/uL Abs Immat Gran (auto) 0.03 (0.00-0.03) X10*3/uL Absolute Neuts (auto) 8.1 (2.0-8.3) x10*3/uL Absolute Nucleated RBC 0.000 (0.0-0.012) X10*3/uL Nucleated RBC % (auto) 0.0 (0.0-0.2) /100WBC Sodium 142 (135-145) mmol/L Potassium 3.8 (3.3-5.1) mmol/L Chloride 108 (96-108) mmol/L Carbon Dioxide 22 (22-29) mmol/L Anion Gap 16 (12-20) BUN 6 L (9-16) mg/dL Creatinine 1.01 (0.5-1.4) mg/dL Estim Creat Clear Calc 129.9 Estimated GFR > 60 Random Glucose 114 (60-115) mg/dL Calcium 10.2 D (8.4-10.2) mg/dL Magnesium 2.3 (1.6-2.6) mg/dL Total Bilirubin 0.5 (0.0-1.0) mg/dL Direct Bilirubin 0.2 (0.0-0.5) mg/dL AST 21 (5-37) U/L ALT 24 (0-40) U/L Alkaline Phosphatase 76 (39-117) U/L Total Protein 8.1 H (6.5-8.0) g/dL Albumin 5.0 (3.5-5.0) g/dL Urine Color Yellow Urine Appearance Clear Urine pH 6.5 (5.0-9.0) Ur Specific Bronson <= 1.005 (1.005-1.025) Urine Protein Negative (Neg-Trace) mg/dL Urine Glucose (UA) Negative (Negative) mg/dL Urine Ketones Negative (Negative) mg/dL Urine Blood Negative (Negative) Urine Nitrite Negative (Negative) Ur Leukocyte Esterase Negative (Negative) Urine Opiates Screen Not Detected (Not Detect) Ur Buprenorphine Scrn Not Detected (Not Detect) ng/mL Ur Oxycodone Screen Not Detected (Not Detect) ng/mL Urine Methadone Screen Not Detected (Not Detect) ng/mL Urine Fentanyl Screen Not Detected (Not Detect) Ur Barbiturates Screen Not Detected (Not Detect) Ur Phencyclidine Scrn Not Detected (Not Detect) Ur Amphetamines Screen Not Detected (Not Detect) U Benzodiazepines Scrn Not Detected (Not Detect) Urine Cocaine Screen Not Detected (Not Detect) U Marijuana (THC) Screen Not Detected (Not Detect) Ethyl Alcohol 213 mg/dL Influenza Type A (PCR) NEGATIVE (Negative) Influenza Type B (PCR) NEGATIVE (Negative) RSV RNA Qual (PCR) NEGATIVE (Negative) SARS-CoV-2 RNA (RT-PCR) NEGATIVE (Negative) Discharge Plan Discharge Clinical Impression: Alcoholic intoxication, Suicidal ideation Patient Disposition: Xfer Psychiatric Hosp Prescriptions: No Action olanzapine 10 mg tablet 10 mg PO BEDTIME 30 Days Qty: 30 1RF hydroxyzine HCl 50 mg tablet 50 mg PO BEDTIME propranolol 10 mg tablet 10 mg PO BID clonazepam 1 mg tablet 1 mg PO BID PRN (Reason: Anxiety) clonidine HCl 0.1 mg tablet 0.1 mg PO Q12H PRN (Reason: Agitation) lamotrigine 200 mg tablet 200 mg PO BID fluoxetine 40 mg capsule 80 mg PO DAILY atorvastatin 20 mg tablet 20 mg PO BEDTIME Interventions: Acute Care Transfer Worksheet (ED) Last Done: 03/01/24 14:41 Discharge Date/Time: 03/01/24 14:43 Print Language: Irish
[2024-02-29 16:22] LABS: MANUAL DIFF FLAG NO
[2024-02-29 16:23] LABS: Basophils Percent Auto 0.4 % (0-2); Eosinophils Absolute Auto 0.1 X10*3/uL (0.0-0.4); Eosinophils Percent Auto 0.5 % (0-4); Hematocrit 45.1 % (42.0-52.0); Hemoglobin 15.7 g/dl (14.0-18.0); Imm Gran Abs Auto 0.03 X10*3/uL (0.00-0.03); Imm Gran Pct Auto 0.3 % (0.0-0.4); Lymphocytes Absolute Auto 1.7 X10*3/uL (1.2-4.9); Lymphocytes Percent Auto 16.3 % (20-40); Mean Corpuscular HGB Conc 34.8 g/dl (31.0-36.0); Mean Corpuscular Hemoglobin 29.4 pg (27.0-33.0); Mean Corpuscular Volume 84.5 fL (80.0-98.0); Mean Platelet Volume 9.1 fL (9.4-12.4); Monocytes Absolute Auto 0.4 X10*3/uL (0.1-1.2); Monocytes Percent Auto 3.8 % (2-11); Neutrophils Absolute Auto 8.1 x10*3/uL (2.0-8.3); Neutrophils Percent Auto 78.7 % (45-73); Platelet Count 238 X10*3/uL (160-400); Red Blood Count 5.34 X10*6/uL (4.60-5.80); White Blood Count 10.3 X10*3/uL (4.8-10.8)
[2024-02-29 16:38] LABS: Alanine Aminotransferase 24 U/L (0-40); Alkaline Phosphatase 76 U/L (39-117); Anion Gap 16 (12-20); Aspartate Amino Transferase 21 U/L (5-37); Bilirubin Direct 0.2 mg/dL (0.0-0.5); Bilirubin Total 0.5 mg/dL (0.0-1.0); Blood Urea Nitrogen 6 mg/dL (9-16); Calcium 10.2 mg/dL (8.4-10.2); Carbon Dioxide 22 mmol/L (22-29); Chloride 108 mmol/L (96-108); Creatinine Clr Calc Pharmacy 129.9; Estimated Glomerular Filt Rate > 60; Ethanol 213 mg/dL; Glucose Random 114 mg/dL (60-115); Magnesium 2.3 mg/dL (1.6-2.6); Potassium 3.8 mmol/L (3.3-5.1); Sodium 142 mmol/L (135-145); Total Protein 8.1 g/dL (6.5-8.0)
--- NOTE | 2024-02-29 17:24 | MHC.RECOVSUP ---
? Reason for consult Recovery Support o Current location: ed17h o Identified substance use concern: Alcohol - Support ? Intervention: o ATS bed search started/completed/in process o Community resources provided o Harm reduction discussion ? Plan: o Patient awaiting crisis evaluation o Patient to follow up with [facility] after discharge ? Additional information: Met with Patient and we talked about recovery, Patient stated that he had time in recovery but had a relapes.. We talked about harm reduction and patient stated that he needs help.. That he feels like his meds are not working.. I informed doctor in charge and a referral was made to the care team.
--- NOTE | 2024-02-29 17:35 | PC.NURSE ---
Call received from James Murillo-Supercharge Repair Supervisor of Pts program in [place]. James calls to report that Pt will be fully supported by the program and requests that Pt be made aware that they are behind him. James also reports that Pt has his personal number and may call him at any time, James can be reached at [phone]. At this time, Pts dispo is unclear but per James, should Pt need transport the program can assist.
--- NOTE | 2024-02-29 17:58 | PC.NURSE ---
Pt resting quietly on stretcher with eyes closed.
[2024-02-29 18:57] VITALS: BP 141/81; PULSE 85; RESP 18; TEMP 36.5; O2SAT 96
[2024-02-29 20:08] VITALS: BP 119/71; PULSE 86; RESP 18; TEMP 36.4; O2SAT 95
[2024-02-29] MEDS: LORazepam 1 MG TABLET 2 MG PO (20:55)
[2024-02-29] MEDS: Acetaminophen 325 MG TABLET 975 MG PO (20:55)
[2024-02-29 23:49] VITALS: BP 122/74; PULSE 88; RESP 16; TEMP 36.9; O2SAT 97
--- NOTE | 2024-03-01 | ECG_ITS ---
Test Reason : QT BASELINE Blood Pressure : / mmHG Vent. Rate : 076 BPM Atrial Rate : 076 BPM P-R Int : 178 ms QRS Dur : 096 ms QT Int : 386 ms P-R-T Axes : 041 -10 038 degrees QTc Int : 434 ms Normal sinus rhythm Nonspecific ST abnormality Abnormal ECG When compared with ECG of 29-JUN-2023 18:54, T wave inversion less evident in Anterior leads Referred By: Reanna Kaufman Electronically Signed By:BREE OSBORNE
--- NOTE | 2024-03-01 04:49 | PC.NURSE ---
med rec done with patient. MD aware.
[2024-03-01 06:50] VITALS: BP 142/86; PULSE 79; RESP 15; TEMP 36.8; O2SAT 97
--- NOTE | 2024-03-01 07:00 | PC.NURSE ---
Report taken from Richard Collins RN
--- NOTE | 2024-03-01 08:26 | PHA.MEDREC ---
Pharmacy Consult ? Medication Reconciliation Pharmacy has reviewed the medication reconciliation done by nursing.
[2024-03-01] MEDS: Propranolol HCL 10 MG TABLET PO (08:37)
[2024-03-01] MEDS: FLUoxetine HCl 20 MG CAPSULE 80 MG PO (08:37)
[2024-03-01] MEDS: lamoTRIgine 100 MG TABLET 200 MG PO (08:37)
[2024-03-01] MEDS: cloNIDine HCL 0.1 MG TABLET PO (08:41)
[2024-03-01] MEDS: clonazePAM 1 MG TABLET PO (08:41)
--- NOTE | 2024-03-01 10:14 | PC.NURSE ---
Pt.'s sister at bedside. Per pt.'s request, his wallet and keys were given to her.
--- NOTE | 2024-03-01 10:19 | MHC.CARE ---
Pt was accepted to [facility] for today 03/01/24. ETA is [facility]. The accepting provider is Dr. Zainab Fofana and the address is [address] [place] [address]. [facility] will call ED MICHELLE Kurtz to complete n2n. CARE team was notified of placement.
--- NOTE | 2024-03-01 10:46 | PC.NURSE ---
[id number] report given to Cyndi Wilkes RN at [facility].
--- NOTE | 2024-03-01 10:52 | W.ED.CONS.HO ---
Consult Details Consult Details: Patient pending placement accepted to [facility] for transfer
[2024-03-01 11:43] LABS: Influenza A PCR NEGATIVE (Negative); Influenza B PCR NEGATIVE (Negative); Resp Syncy Virus RNA Qual PCR NEGATIVE (Negative); SARS COV2 PCR INHOUSE NEGATIVE (Negative)
[2024-03-01 14:28] VITALS: RESP 18
[2024-03-01 14:41] VITALS: BP 123/65; PULSE 92; RESP 18; TEMP 36.7; O2SAT 95
== END 2024-03-01 14:43 ==
PROVIDERS: Physician Assistant; Emergency Provider Emergency Medicine
DX: F10.129 Alcohol abuse with intoxication, unspecified (principal); Y90.7 Blood alcohol level of 200-239 mg/100 ml; R94.31 Abnormal electrocardiogram [ECG] [EKG]; F43.89 Other reactions to severe stress; Z03.818 Encounter for observation for suspected exposure to other biological agents ruled out; Z79.899 Other long term (current) drug therapy; Z51.81 Encounter for therapeutic drug level monitoring
CPT/HCPCS: 0241U; 36415; 80048; 80076; 80307; 81003; 83735; 85025; 93005; 99285; S9485

== ENCOUNTER 2024-09-05 18:03 | Emergency (ER) | payer MEDICARE, MEDICAID, SELFPAY ==
[2024-09-05 18:11] VITALS: BP 140/90; PULSE 77; O2SAT 98
--- NOTE | 2024-09-05 18:20 | ECG_ITS ---
Test Reason : MEDCLEAR Blood Pressure : */* mmHG Vent. Rate : 65 BPM Atrial Rate : 65 BPM P-R Int : 178 ms QRS Dur : 104 ms QT Int : 444 ms P-R-T Axes : 31 -23 17 degrees QTcB Int : 461 ms Normal sinus rhythm Incomplete right bundle branch block Nonspecific T wave abnormality Prolonged QT Abnormal ECG When compared with ECG of 01-Mar-2024 10:01, Incomplete right bundle branch block is now Present T wave inversion more evident in Anterior leads Referred By: Morelia Palmer Electronically Signed By: Robert Pantoja
[2024-09-05 18:58] VITALS: BP 112/67; PULSE 68; RESP 20; TEMP 36.6; O2SAT 94; BMI 38.0
[2024-09-05 19:56] LABS: Basophils Absolute Auto 0.1 X10*3/uL (0.0-0.2); Basophils Percent Auto 0.8 % (0-2); Eosinophils Absolute Auto 0.1 X10*3/uL (0.0-0.4); Eosinophils Percent Auto 1.9 % (0-4); Hematocrit 45.6 % (42.0-52.0); Hemoglobin 16.1 g/dl (14.0-18.0); Imm Gran Abs Auto 0.03 X10*3/uL (0.00-0.03); Imm Gran Pct Auto 0.5 % (0.0-0.4); Lymphocytes Absolute Auto 2.5 X10*3/uL (1.2-4.9); Lymphocytes Percent Auto 38.9 % (20-40); MANUAL DIFF FLAG NO; Mean Corpuscular HGB Conc 35.3 g/dl (31.0-36.0); Mean Corpuscular Hemoglobin 28.7 pg (27.0-33.0); Mean Corpuscular Volume 81.3 fL (80.0-98.0); Mean Platelet Volume 8.5 fL (9.4-12.4); Monocytes Absolute Auto 0.3 X10*3/uL (0.1-1.2); Monocytes Percent Auto 5.4 % (2-11); Neutrophils Absolute Auto 3.3 x10*3/uL (2.0-8.3); Neutrophils Percent Auto 52.5 % (45-73); Platelet Count 250 X10*3/uL (160-400); Red Blood Count 5.61 X10*6/uL (4.60-5.80); Red Cell Distribution Width 12.5 % (11.0-16.0); White Blood Count 6.3 X10*3/uL (4.8-10.8)
[2024-09-05 20:13] LABS: Alanine Aminotransferase 49 U/L (0-40); Albumin Level 4.8 g/dL (3.5-5.0); Alkaline Phosphatase 98 U/L (39-117); Anion Gap 17 (12-20); Aspartate Amino Transferase 31 U/L (5-37); Bilirubin Total 0.3 mg/dL (0.0-1.0); Blood Urea Nitrogen 6 mg/dL (9-16); Calcium 9.6 mg/dL (8.4-10.2); Carbon Dioxide 24 mmol/L (22-29); Chloride 110 mmol/L (96-108); Creatinine Clr Calc Pharmacy 131.1; Estimated Glomerular Filt Rate > 60; Glucose Random 99 mg/dL (60-115); Magnesium 2.2 mg/dL (1.6-2.6); Sodium 147 mmol/L (135-145); Total Protein 8.1 g/dL (6.5-8.0)
--- NOTE | 2024-09-05 21:31 | ED.PSYCH ---
HPI - Psych General Chief Complaint: ETOH/Substance Use Stated Complaint: etoh wants treatment and detox no other cc Time Seen by Provider: 09/05/24 21:27 Source: patient Mode of arrival: ambulatory Limitations: no limitations History of Present Illness ED Provider: Dr. Reanna Kaufman HPI Narrative: Patient comes to the emergency room complaining of alcohol intoxication. Patient denies SI or HI, patient states that he is not interested in detox. Related Data Home Medications ?Medication ?Instructions ?Recorded ?Confirmed clonazepam 1 mg tablet 1 mg PO BID PRN Anxiety 06/29/23 09/06/24 clonidine HCl 0.1 mg tablet 0.1 mg PO Q12H PRN Agitation 06/29/23 09/06/24 hydroxyzine HCl 50 mg tablet 50 mg PO BEDTIME 06/29/23 09/06/24 propranolol 10 mg tablet 10 mg PO BID 06/29/23 09/06/24 atorvastatin 20 mg tablet 20 mg PO BEDTIME cholesterol 03/01/24 09/06/24 fluoxetine 40 mg capsule 80 mg PO DAILY 03/01/24 09/06/24 amlodipine 10 mg tablet 10 mg PO DAILY blood pressure 09/06/24 09/06/24 famotidine 20 mg tablet 20 mg PO BID 09/06/24 09/06/24 lamotrigine 25 mg tablet 50 mg PO DAILY 09/06/24 09/06/24 Previous Rx's ?Medication ?Instructions ?Recorded olanzapine 10 mg tablet 10 mg PO BEDTIME 30 days #30 tabs 04/12/23 Allergies Allergy/AdvReac Type Severity Reaction Status Date / Time mirtazapine [MIRTAZAPINE] Allergy Intermediate UNKNOWN Verified 09/05/24 18:59 sulfamethoxazole Allergy Unknown RASH Verified 09/05/24 18:59 [From BACTRIM] trimethoprim [From BACTRIM] Allergy Unknown RASH Verified 09/05/24 18:59 Review of Systems Review of Systems: Constitutional : No Weight loss, No Fever, No Chills, No Night Sweats, No Fatigue, No Malaise ENT/Mouth : No Hearing loss, No Ear Pain, No Nasal Congestion, No Sinus Pain, No Hoarseness, No sore throat, No Rhinorrhea, No Swallowing Difficulty Eyes: No Eye Pain, No Swelling, No Redness, No Foreign Body, No Discharge, No Vision Changes Cardiovascular : No Chest Pain, No SOB, No Dyspnea on Exertion, No Orthopnea, No Edema, No Palpitations Respiratory : No Cough, No Sputum, No Wheezing, No Smoke Exposure, No Dyspnea Gastrointestinal : No Nausea, No Vomiting, No Diarrhea, No Constipation, No abdominal Pain, No Hematochezia, No Melena Genitourinary : no irregular bleeding, No Dysuria, No Urinary Frequency, No Hematuria, No Urinary Incontinence, No Urgency, No Flank Pain, No Urinary Flow Changes, No Hesitancy Musculoskeletal : No joint pain, No Myalgias, No Joint Swelling Skin : No Skin Lesions, No rash Neuro : No Weakness, No Numbness, No Paresthesias, No Loss of Consciousness, No Dizziness, No Headache Psych : No Anxiety/Panic, No Depression, No SI/HI/AH/VH, complaining of alcohol intoxication Heme/Lymph: No Bruising, No Bleeding,No Lymphadenopathy Endocrine : No Polyuria, No Polydipsia, No Temperature Intolerance PMFSH Past Medical History Medical History Alcohol abuse Sleep apnea MDD (major depressive disorder), recurrent episode, severe Alcohol use disorder, mild, in controlled environment, abuse Transaminitis Tachycardia HTN (hypertension) Social History Social History Household Members: None Household Members Other:: lives alone Housing: Apartment Do you presently have visiting nurse or other home services: No Alcohol intake: current Alcohol intake frequency: former alcohol drinker Alcohol type: beer and hard liquor Patient Tobacco Use Status: Current everyday Tobacco user Tobacco use type: Cigarette Cigarette Packs Per Day: 0.25 Cigarettes Per Day: 5.0 Years Smoked: 14 Smoked in Last 30 Days: No e-Cigarette/Vaping Use: Never Used Second Hand Smoke Exposure: No Use of substances other than those prescribed or required for medical reasons: No Advance Directives: No Advance Directives Information Provided: Yes Do you have a plan to hurt others: No Plan service: No Sexual orientation: Straight/Heterosexual Physical Exam Vital Signs: Vital Signs: Last Vital Signs Temp 97.4 F 09/07/24 06:38 Pulse 60 09/07/24 09:46 Resp 16 09/07/24 06:38 BP 129/92 H 09/07/24 09:46 Pulse Ox 97 09/07/24 06:38 O2 Del Method Room Air 09/07/24 06:38 BMI result Body Mass Index 38.0 Const: Other: Appearance: Alert. Oriented X3. Intoxicated, crying, Eyes: Pupils equal, round and reactive to light. ENT: Pharynx normal. Neck: Normal inspection. Neck supple. No lymph nodes noted. No crepitus CVS: Normal heart rate and rhythm. Pulses normal. Normal S1 and S2 Respiratory: No respiratory distress. Breath sounds normal. No Wheezing. No rales Abdomen: Soft and nontender. No rigidity. No distention. Skin: Skin warm and dry. Normal skin color. Normal skin turgor. Extremities: No lower extremity edema. No Lacerations. No Rash Neuro: Oriented X 3. No motor deficit. No sensory deficit. Moving all extremities. No slurred speech. CN 2 through 12 grossly intact Psych: calm, cooperative, crying, states that he was sober for 1 year and started drinking today Course Course Course Narrative: All of patient's labs pending Care team consult pending Patient not SI or HI, does not need a section 12 Physician observation started at 21:33 Plan: Metabolize to freedom Reevaluation(s) Reevaluation #1: Time: 15:16 Date: 09/06/24 Provider: ISHA Workman Patient in physician observation for CARE evaluation.? No acute events reported overnight. No current complaints. CIWA = 1 this AM. patient mildly hypertensive this morning. We will continue to monitor.? Patient was evaluated by CARE team this morning and will be inpatient psych bed search Reevaluation #2: Time: 08:41 Date: 09/07/24 Provider: Jana Cornejo DO Patient in physician observation for psychiatric evaluation.? No acute events reported overnight. No current complaints. VS stable.? Patient is in bed search status. Will continue to monitor. Reevaluation #3: Time: 11:50 Date: 09/07/24 Provider: Jana Cornejo DO Physician observation ended at 1150am.Patient to be admitted as inpatient to psychiatry [facility]. Medications Administered Generic Name Dose Route Start Last Admin Trade Name Freq PRN Reason Stop Dose Admin Amlodipine Besylate 10 mg 09/06/24 15:30 09/07/24 08:33 Amlodipine Besylate 10 Mg Tablet PO 10 mg DAILY MARTINEZ Administration Protocol Atorvastatin Calcium 20 mg 09/06/24 21:00 09/06/24 20:53 Atorvastatin Calcium 20 Mg Tablet PO 20 mg BEDTIME MARTINEZ Administration Clonazepam 1 mg 09/06/24 15:27 09/07/24 08:37 Clonazepam 1 Mg Tablet PO 1 mg BID PRN Administration Anxiety Clonidine HCl 0.1 mg 09/06/24 15:27 09/07/24 08:37 Clonidine Hcl 0.1 Mg Tablet PO 0.1 mg Q12H PRN Administration Agitation Protocol Famotidine 20 mg 09/06/24 21:00 09/07/24 08:34 Famotidine 20 Mg Tablet PO 20 mg BID MARTINEZ Administration Fluoxetine HCl 80 mg 09/06/24 15:30 09/07/24 08:33 Fluoxetine Hcl 20 Mg Capsule PO 80 mg DAILY MARTINEZ Administration Hydroxyzine HCl 50 mg 09/06/24 21:00 09/06/24 20:55 Hydroxyzine Hcl 50 Mg Tablet PO 50 mg BEDTIME MARTINEZ Administration Lamotrigine 50 mg 09/06/24 15:30 09/07/24 08:32 Lamotrigine 25 Mg Tablet PO 50 mg DAILY MARTINEZ Administration Olanzapine 10 mg 09/06/24 21:00 09/06/24 20:56 Olanzapine 10 Mg Tablet PO 10 mg BEDTIME MARTINEZ Administration Propranolol HCl 10 mg 09/06/24 21:00 09/07/24 09:46 Propranolol Hcl 10 Mg Tablet PO 10 mg BID MARTINEZ Administration Protocol Discontinued Medications Generic Name Dose Route Start Last Admin Trade Name Freq PRN Reason Stop Dose Admin Diphenhydramine HCl 50 mg 09/06/24 01:52 09/06/24 02:08 Diphenhydramine Hcl 25 Mg Capsule PO 09/06/24 01:53 50 mg ONCE ONE Administration Lorazepam 2 mg 09/06/24 01:52 09/06/24 02:08 Lorazepam 1 Mg Tablet PO 09/06/24 01:53 2 mg ONCE ONE Administration Lorazepam 1 mg 09/06/24 08:47 09/06/24 09:19 Lorazepam 1 Mg Tablet PO 09/06/24 08:48 1 mg ONCE ONE Administration Olanzapine 10 mg 09/06/24 01:52 09/06/24 02:08 Olanzapine 10 Mg Tablet PO 09/06/24 01:53 10 mg ONCE ONE Administration Propranolol HCl 10 mg 09/06/24 06:19 09/06/24 06:23 Propranolol Hcl 10 Mg Tablet PO 09/06/24 06:20 10 mg ONCE ONE Administration Protocol Medical Decision Making Medical Decision Making [facility] Narrative: No significant abnormality in patient's hematology and chemistry, ethanol level 238 Initially patient denied to be SI or HI. At 01:50, I was informed by the patient's nurse that the patient is crying, saying that his SI, no HI, requesting to be seen by the care team. Patient anxious, patient was given p.o. diphenhydramine lorazepam and olanzapine Care team consult pending Differential Diagnosis Differential Diagnoses: The differential diagnosis associated with the presentation includes (Anxiety, depression, alcohol abuse) Admission/Observation Consideration of admission/observation: Escalation of care including admission/observation considered (Patient waiting to be seen by the care team) Lab Data [facility] Lab Attestation statement: I reviewed the patient's lab results. 09/05/24 19:52 09/05/24 19:52 Labs: Lab Results 09/05/24 09/05/24 09/05/24 Range/Units 19:52 23:53 23:56 WBC 6.3 (4.8-10.8) X10*3/uL RBC 5.61 (4.60-5.80) X10*6/uL Hgb 16.1 (14.0-18.0) g/dl Hct 45.6 (42.0-52.0) % MCV 81.3 (80.0-98.0) fL MCH 28.7 (27.0-33.0) pg MCHC 35.3 (31.0-36.0) g/dl RDW 12.5 (11.0-16.0) % Plt Count 250 (160-400) X10*3/uL MPV 8.5 L (9.4-12.4) fL Immature Gran % (Auto) 0.5 H (0.0-0.4) % Neut % (Auto) 52.5 (45-73) % Lymph % (Auto) 38.9 (20-40) % [place] % (Auto) 5.4 (2-11) % Eos % (Auto) 1.9 (0-4) % Baso % (Auto) 0.8 (0-2) % Lymph # (Auto) 2.5 (1.2-4.9) X10*3/uL [place] # (Auto) 0.3 (0.1-1.2) X10*3/uL Eos # (Auto) 0.1 (0.0-0.4) X10*3/uL Baso # (Auto) 0.1 (0.0-0.2) X10*3/uL Abs Immat Gran (auto) 0.03 (0.00-0.03) X10*3/uL Absolute Neuts (auto) 3.3 (2.0-8.3) x10*3/uL Absolute Nucleated RBC 0.000 (0.0-0.012) X10*3/uL Nucleated RBC % (auto) 0.0 (0.0-0.2) /100WBC Sodium 147 H (135-145) mmol/L Potassium 4.0 (3.3-5.1) mmol/L Chloride 110 H (96-108) mmol/L Carbon Dioxide 24 (22-29) mmol/L Anion Gap 17 (12-20) BUN 6 L (9-16) mg/dL Creatinine 1.00 (0.5-1.4) mg/dL Estim Creat Clear Calc 131.1 Estimated GFR > 60 Random Glucose 99 (60-115) mg/dL Calcium 9.6 (8.4-10.2) mg/dL Magnesium 2.2 (1.6-2.6) mg/dL Total Bilirubin 0.3 (0.0-1.0) mg/dL AST 31 (5-37) U/L ALT 49 H (0-40) U/L Alkaline Phosphatase 98 (39-117) U/L Total Protein 8.1 H (6.5-8.0) g/dL Albumin 4.8 (3.5-5.0) g/dL Urine Color Yellow Urine Appearance Clear Urine pH 6.0 (5.0-9.0) Ur Specific [place] <= 1.005 (1.005-1.025) Urine Protein Negative (Neg-Trace) mg/dL Urine Glucose (UA) Negative (Negative) mg/dL Urine Ketones Negative (Negative) mg/dL Urine Blood Negative (Negative) Urine Nitrite Negative (Negative) Ur Leukocyte Esterase Negative (Negative) Urine RBC 0-2 (0-2) /HPF Urine WBC 0-5 (0-5) /HPF Ur Squamous Epith Cells 0-2 (0-2) /HPF Urine Bacteria None Seen (None Seen) Hyaline Casts 0-2 (0-2) /LPF Urine Opiates Screen Not Detected (Not Detect) Ur Buprenorphine Scrn Not Detected (Not Detect) ng/mL Ur Oxycodone Screen Not Detected (Not Detect) ng/mL Urine Methadone Screen Not Detected (Not Detect) ng/mL Urine Fentanyl Screen Not Detected (Not Detect) Ur Barbiturates Screen Not Detected (Not Detect) Ur Phencyclidine Scrn Not Detected (Not Detect) Ur Amphetamines Screen Not Detected (Not Detect) U Benzodiazepines Scrn Not Detected (Not Detect) Urine Cocaine Screen Not Detected (Not Detect) U Marijuana (THC) Screen Not Detected (Not Detect) Ethyl Alcohol 238 mg/dL Critical Care Time Critical Care Time Critical Care Time: Yes Total Critical Care Time: 35 Attestation: I have personally provided critical care time. Time includes review of lab data, radiology results, discussion with consultants, and monitoring for potential decompensation. Intervention performed as documented. Discharge Plan Discharge Clinical Impression: Alcohol intoxication, Depression Patient Disposition: er Psychiatric Hosp Transfer Details: Anthony Additional Instructions: Alcohol use disorder You were seen in the Emergency Department today for treatment of alcohol use disorder.? You may have been given medications to help with your withdrawal symptoms.? Please do not drink alcohol with them. This is very dangerous and can cause respiratory depression or other adverse reactions depending on the medication. If you would like to cut down or stop your alcohol use please consider calling our outpatient Addiction Treatment office:? [facility] ([id number] [address] [place] [address] ? You have also been given a list of treatment providers in the area that can assist as well.? If you experience seizures, vomiting blood, black stools, falls, severe headache, chest pain, fevers, trouble breathing, hallucinations or any other concerns you need to call 911 or seek immediate care. Please stay hydrated. Prescriptions: No Action olanzapine 10 mg tablet 10 mg PO BEDTIME 30 Days Qty: 30 1RF hydroxyzine HCl 50 mg tablet 50 mg PO BEDTIME propranolol 10 mg tablet 10 mg PO BID clonazepam 1 mg tablet 1 mg PO BID PRN (Reason: Anxiety) clonidine HCl 0.1 mg tablet 0.1 mg PO Q12H PRN (Reason: Agitation) fluoxetine 40 mg capsule 80 mg PO DAILY atorvastatin 20 mg tablet 20 mg PO BEDTIME famotidine 20 mg tablet 20 mg PO BID amlodipine 10 mg tablet 10 mg PO DAILY lamotrigine 25 mg tablet 50 mg PO DAILY Print Language: Lao
[2024-09-05 22:34] LABS: Ethanol 238 mg/dL
[2024-09-05 22:47] VITALS: BP 128/78; PULSE 71; RESP 18; TEMP 36.8; O2SAT 98
[2024-09-06 00:16] LABS: Amphetamine Screen Urine Not Detected (Not Detect); Barbiturates, Urine Not Detected (Not Detect); Benzodiazepines Screen Urine Not Detected (Not Detect); Buprenorphine Scr Not Detected (Not Detect); Cannabinoid Screen Urine Not Detected (Not Detect); Cocaine Screen Urine Not Detected (Not Detect); Fentanyl, urine Not Detected (Not Detect); Methadone Screen, Urine Not Detected (Not Detect); Opiate Screen Urine Not Detected (Not Detect); Oxycodone Screen Urine Not Detected (Not Detect); Phencyclidine Screen Urine Not Detected (Not Detect)
--- NOTE | 2024-09-06 01:18 | MHC.EDTECH ---
this tech took over care at 2300, pt asking about his belongings. no belongings list found and no documentation found regarding [employer] exchange administrator upon pt arrival. this tech went to the [facility] and found pt belongings, :alex urbina with belt, wallet, cell phone, and brown shoes.
--- NOTE | 2024-09-06 01:48 | PC.NURSE ---
Pt crying at the charge desk, states everyone is done with me, I don't want to live anymore. aware, plan for crisis consult in the morning. Pt requesting something to help sleep, aware.
[2024-09-06] MEDS: diphenhydrAMINE HCL 25 MG CAPSULE 50 MG PO (02:08)
[2024-09-06] MEDS: LORazepam 1 MG TABLET 2 MG PO (02:08)
[2024-09-06] MEDS: OLANZapine 10 MG TABLET PO ×2 (02:08→20:56)
[2024-09-06 05:54] VITALS: BP 173/105; PULSE 98; RESP 18; TEMP 36.9; O2SAT 99
[2024-09-06 06:23] VITALS: BP 173/105; PULSE 98
[2024-09-06] MEDS: Propranolol HCL 10 MG TABLET PO ×2 (06:23→20:52)
--- NOTE | 2024-09-06 06:30 | PC.NURSE ---
BP 173/105, zp 98. Dr. Kaufman notified, patient medicated with Propranolol 10mg PO
--- NOTE | 2024-09-06 07:47 | PC.NURSE ---
Pt tearful, on phone often talking to sister. Maintains SI still and overwhelmed with life situation. Is calm, undressed. Denies ever having DTs or withdrawal sz. Skin pwd.
[2024-09-06] MEDS: LORazepam 1 MG TABLET PO (09:19)
--- NOTE | 2024-09-06 09:53 | MHC.CARE ---
Pt will be an inpatient psychiatric bedsearch
[2024-09-06 13:32] LABS: Appearance Urine Clear; Color Urine Yellow; Glucose Urine UA Negative (Negative); Leukocyte Esterase Urine Negative (Negative); Nitrite Urine Negative (Negative); Specific Gravity - Urine <= 1.005 (1.005-1.025); Urine Blood Negative (Negative); Urine Ketones Negative (Negative); Urine Protein Negative (Neg-Trace)
[2024-09-06 13:35] LABS: Bacteria Urine None Seen (None Seen); Hyaline Casts Urine 0-2 /LPF (0-2); RBC Urine 0-2 /HPF (0-2); Squamous Epithelial Cell Urine 0-2 /HPF (0-2); WBC Urine 0-5 /HPF (0-5)
--- NOTE | 2024-09-06 15:48 | PHA.MEDREC ---
Pharmacy Consult ? Medication Reconciliation Pharmacy has REVIEWED the medication reconciliation completed by nursing.
[2024-09-06 16:16] VITALS: BP 164/89
[2024-09-06] MEDS: clonazePAM 1 MG TABLET PO (16:16)
[2024-09-06] MEDS: FLUoxetine HCl 20 MG CAPSULE 80 MG PO (16:16)
[2024-09-06] MEDS: amLODIPine Besylate 10 MG TABLET PO (16:16)
[2024-09-06] MEDS: lamoTRIgine 25 MG TABLET 50 MG PO (16:17)
[2024-09-06 20:23] VITALS: BP 164/91; PULSE 78; RESP 18; TEMP 36.9; O2SAT 97
[2024-09-06 20:52] VITALS: BP 164/91; PULSE 78
[2024-09-06] MEDS: Atorvastatin Calcium 20 MG TABLET PO (20:53)
[2024-09-06] MEDS: Famotidine 20 MG TABLET PO (20:55)
[2024-09-06] MEDS: hydrOXYzine HCL 50 MG TABLET PO (20:55)
--- NOTE | 2024-09-07 00:46 | PC.NURSE ---
late entry, upon arrival patient relaxing in room, presented w medications, patient seemed relaxed, overall no behavioral problems, pt appears in no distress
[2024-09-07 06:38] VITALS: BP 156/94; PULSE 73; RESP 16; TEMP 36.3; O2SAT 97
[2024-09-07] MEDS: lamoTRIgine 25 MG TABLET 50 MG PO (08:32)
[2024-09-07 08:33] VITALS: BP 129/92
[2024-09-07] MEDS: FLUoxetine HCl 20 MG CAPSULE 80 MG PO (08:33)
[2024-09-07] MEDS: amLODIPine Besylate 10 MG TABLET PO (08:33)
[2024-09-07] MEDS: Famotidine 20 MG TABLET PO (08:34)
[2024-09-07 08:37] VITALS: BP 129/92
[2024-09-07] MEDS: clonazePAM 1 MG TABLET PO (08:37)
[2024-09-07] MEDS: cloNIDine HCL 0.1 MG TABLET PO (08:37)
[2024-09-07 09:46] VITALS: BP 129/92; PULSE 60
[2024-09-07] MEDS: Propranolol HCL 10 MG TABLET PO (09:46)
--- NOTE | 2024-09-07 09:51 | MHC.CARE ---
Pt accepted to [facility] 12pm [address] [place], [place] Dr. Pereira
--- NOTE | 2024-09-07 11:21 | PC.NURSE ---
Report gv to MICHELLE Espinosa at [facility] for nurse to nurse; pt calm/cooperative at this time; CIWA negative; report gv to EMS for transfer
[2024-09-07 11:24] VITALS: BP 129/92; PULSE 60; RESP 16; TEMP 36.6; O2SAT 97
== END 2024-09-07 11:26 ==
PROVIDERS: Emergency Medicine Emergency Medical Services; Physician Assistant Medical; Emergency Provider Emergency Medicine
DX: F10.120 Alcohol abuse with intoxication, uncomplicated (principal); Y90.7 Blood alcohol level of 200-239 mg/100 ml; F32.A Depression, unspecified; F17.210 Nicotine dependence, cigarettes, uncomplicated; Z79.899 Other long term (current) drug therapy
CPT/HCPCS: 36415; 80053; 80307; 81001; 83735; 85025; 93005; 99285; S9485

== ENCOUNTER → 2024-09-05 18:20 | Outpatient (BNV) | payer MEDICARE, MEDICAID, SELFPAY | PROVIDERS: Emergency Provider Emergency Medicine; Visit Provider Internal Medicine Cardiovascular Disease | DX: I45.10 Unspecified right bundle-branch block (principal) | CPT/HCPCS: 93010 ==

== ENCOUNTER 2025-01-02 14:27 | Inpatient (IN) | payer MEDICARE, MEDICAID, SELFPAY ==
[2025-01-02 14:42] VITALS: BP 123/71; PULSE 72; RESP 16; TEMP 36.6; O2SAT 96; BMI 35.7
--- NOTE | 2025-01-02 14:48 | PC.NURSE ---
contact for David alteration workroom supervisor at program.
--- NOTE | 2025-01-02 15:13 | MHC.EDTECH ---
Aureliano thompson and MICHELLE Rodriguez inspected patients hardcover book brought from library. Book not found to hold any contraband, spine checked, pages checked, book shook out. One piece of paper found holding patients page.
--- NOTE | 2025-01-02 15:25 | PC.NURSE ---
director to pt [facility] contact # [phone]
--- NOTE | 2025-01-02 15:37 | ED_ITS ---
HPI - General Adult General Chief complaint: Psychiatric Symptoms Stated complaint: crisis Time Seen by Provider: 01/02/25 14:53 Source: patient Mode of arrival: ambulatory Limitations: no limitations History of Present Illness ED Provider: ANAND TOLENTINO PA-C HPI narrative: 44 year old male with pmhx significant for MDD, anxiety, bipolar disorder, OCD [facility] of increasing suicidal ideation. Reports feelings of SI x1 week since entering the program. He has thought about hanging himself in the closet. Today, he was in the kitchen watching someone cut food with a knife. He thought about grabbing the knife and slitting his wrists. He express these feelings to someone at the facility and he was transported to the ED for further evaluation. Reports history of self-harm. Reports compliance with his medications. States he is currently at this facility for help with his alcoholism. He last consumed alcohol 33 days ago. Denies AH/VH/TH. Denies HI. Denies illicit substance use. Denies any physical complaints at this time. Related Data Home Medications ?Medication ?Instructions ?Recorded ?Confirmed clonazepam 1 mg tablet 1 mg PO BID 06/29/23 5 propranolol 10 mg tablet 10 mg PO BID 06/29/23 atorvastatin 20 mg tablet 20 mg PO BEDTIME cholesterol 03/01/24 01/02/25 fluoxetine 40 mg capsule 80 mg PO DAILY 03/01/2412/20 amlodipine 10 mg tablet 10 mg PO DAILY blood pressur e 09/06/24 01/02/25 lamotrigine 25 mg tablet 50 mg PO DAILY 09/06/2412/20 acetaminophen 325 mg tablet 650 mg PO Q4-6H PRN PAIN O R FEVER 01/02/25 01/02/25 albuterol sulfate 90 mcg/actuation 2 puff inhalation Q 4H PRN 01/02/25 01/02/25 aerosol inhaler Shortness Of Breath aluminum-mag hydroxide-simethicone 20 ml PO Q4-6H PRN Stomach Upset 01/02/25 01/02/25 200 mg-200 mg-20 mg/5 mL oral susp guaifenesin 200 mg/5 mL oral liquid 200 - 400 mg PO Q4 H PRN Cough 01/02/25 01/02/25 hydroxyzine pamoate 50 mg capsule 50 mg PO BEDTIME 12/2001/02/25 ibuprofen 400 mg tablet 400 mg PO Q6H PRN PAIN OR FE BRY 01/02/25 01/02/25 lamotrigine 100 mg tablet 100 mg PO BEDTIME 01/02/25 0 01/02/25 magnesium hydroxide 400 mg/5 mL 2,400 mg PO DAILY PRN Constipation 01/02/25 01/02/25 oral suspension (Milk of Magnesia) naloxone 4 mg/actuation nasal 4 mg intranasal Q2M PRN Opioid 01/02/25 01/02/25 spray (Narcan) Overdose naltrexone 50 mg tablet 50 mg PO DAILY 01/02/2512/20 trazodone 100 mg tablet 100 mg PO BEDTIME 01/02/25 0 01/02/25 Previous Rx's ?Medication ?Instructions ?Recorded olanzapine 10 mg tablet 10 mg PO BEDTIME 30 days #30 tabs 04/12/23 Allergies Allergy/AdvReac Type Severity Reaction Status Date / Time mirtazapine (MIRTAZAPINE) Allergy Intermediate UNKNOWN Verified 01/02/25 14:42 sulfamethoxazole (From Allergy Unknown RASH Verified 01/02/25 14:42 BACTRIM) trimethoprim (From BACTRIM) Allergy Unknown RASH Verified 01/02/25 14:42 Review of Systems 2 Review of Systems: Yes all other systems are reviewed and are negative [facility] Past Medical History Attestation statement: The following information was validated with the patient. Source: old records reviewed and nursing notes reviewed Medical History (Updated 01/03/25 @ 17:20 by Ken Bonilla MD) Adjustment disorder with mixed disturbance of emotions and conduct in remission JESSICA (generalized anxiety disorder) Alcohol abuse Sleep apnea MDD (major depressive disorder), recurrent episode, severe Alcohol use disorder, mild, in controlled environment, abuse Transaminitis Tachycardia HTN (hypertension) Social History Social History Household Members: Other Household Members Other:: Patient reports lives in a senior living with 15 other persons has own room Housing: Other Do you presently have visiting nurse or other home services: No Alcohol intake: former Patient Tobacco Use Status: Current everyday Tobacco user Tobacco use type: Cigarette Cigarette Packs Per Day: 1 Cigarettes Per Day: 20.0 Years Smoked: 28 Smoked in Last 30 Days: Yes e-Cigarette/Vaping Use: Never Used Patient Interested in Nicotine Replacement: Yes Patient Given Instructions on How to Stop Smoking: No Second Hand Smoke Exposure: No Use of substances other than those prescribed or required for medical reasons: No Currently Displaying Signs/Symptoms of Drug Intoxication Withdrawal: No Have you been hit, kicked, punched, or otherwise hurt by someone within the past year? If so, by whom?: No Do you feel safe in your current relationship?: No Current Relationship Is there a partner from a previous relationship who is making you feel unsafe now?: No Are you made to feel afraid or neglected: No Advance Directives: No Advance Directives Information Provided: No Do you have thoughts of harming others: None Do you have a plan to hurt others: No Plan Recently lost weight without trying: No How much weight loss: Not applicable Eating poorly because of decreased appetite: No Nutrition screen score: 0 Nutrition Risks: No Nutritional Risk service: No Sexual orientation: Straight/Heterosexual Physical Exam ED Vital Signs: Vital Signs - 24 hr 01/02/25 14:42 Temperature 97.8 F Pulse Rate 72 Respiratory Rate 16 Blood Pressure 123/71 Pulse Oximetry 96 Oxygen Delivery Method Room Air BMI result Body Mass Index 35.7 Vital signs stable General: Flat affect, intermittently tearful Skin: Warm, dry, intact. No rashes or lesions. Head: Normocephalic, atraumatic. EENT: Hearing is intact b/l. Conjunctiva clear. Sclera is anicteric. PERRLA. EOM intact. Moist mucous membranes.? Cardiac: Chest wall symmetric. RRR Lungs: Normal respiratory effort without accessory muscle use. CTA bilaterally. No rales, rhonchi, or wheezes.? Back: No midline spinous or paraspinal tenderness. No step off deformity. Ext: Upper and lower extremities atraumatic, without tenderness, deformity, swelling or erythema Neuro: AOx3. Normal speech. CN 2-12 grossly intact. Ambulating with steady gait. Course Course Course Narrative: CBC without leukocytosis. H&H stable. Chemistry without acute electrolyte abnormality requiring intervention. No VLAD. Liver function WNL. urine without infection. urine tox negative. Salicylates, acetaminophen, ethanol undetectable. > at this time, patient is medically cleared for care team. Placed in physician observation pending disposition. 1919 -- spoke with cristian from care team who has evaluated patient - recommending IPLOC. Medications Administered Generic Name Dose Route Start Last Admin Trade Name Freno PRN Reason Stop Dose Admin Acetaminophen 650 mg 01/02/25 20:45 01/05/25 08:47 Acetaminophen 325 Mg Tablet PO 650 mg Q6H PRN Administration Headache/Pain, Scale 1-10 Amlodipine Besylate 10 mg 01/03/25 09:00 01/05/25 08:44 Amlodipine Besylate 10 Mg Tablet PO 10 mg DAILY MARTINEZ Administration Protocol Atorvastatin Calcium 20 mg 01/02/25 21:00 01/04/25 20:19 Atorvastatin Calcium 20 Mg Tablet PO 20 mg BEDTIME MARTINEZ Administration Clonazepam 1 mg 01/02/25 21:00 01/05/25 08:43 Clonazepam 1 Mg Tablet PO 1 mg BID MARTINEZ Administration Fluoxetine HCl 80 mg 01/03/25 09:00 01/05/25 08:43 Fluoxetine Hcl 20 Mg Capsule PO 80 mg DAILY MARTINEZ Administration Hydroxyzine HCl 50 mg 01/02/25 21:00 01/04/25 20:19 Hydroxyzine Hcl 50 Mg Tablet PO 50 mg BEDTIME MARTINEZ Administration Lamotrigine 100 mg 01/02/25 21:00 01/04/25 20:20 Lamotrigine 100 Mg Tablet PO 100 mg BEDTIME MARTINEZ Administration Lamotrigine 50 mg 01/03/25 09:00 01/05/25 08:44 Lamotrigine 25 Mg Tablet PO 50 mg DAILY MARTINEZ Administration Metformin HCl 500 mg 01/03/25 17:00 01/04/25 17:05 Metformin Hcl Er 500 Mg Tab.Er.24h PO 500 mg DAILY@1700 MARTINEZ Administration Naltrexone HCl 50 mg 01/03/25 09:00 01/05/25 08:44 Naltrexone Hcl 50 Mg Tablet PO 50 mg DAILY MARTINEZ Administration Olanzapine 10 mg 01/02/25 21:00 01/04/25 20:19 Olanzapine 10 Mg Tablet PO 10 mg BEDTIME MARTINEZ Administration Propranolol HCl 10 mg 01/02/25 21:00 01/05/25 08:44 Propranolol Hcl 10 Mg Tablet PO 10 mg BID MARTINEZ Administration Protocol Trazodone HCl 100 mg 01/02/25 21:00 01/04/25 20:19 Trazodone Hcl 100 Mg Tablet PO 100 mg BEDTIME MARTINEZ Administration Discontinued Medications Generic Name Dose Route Start Last Admin Trade Name Danielle PRN Reason Stop Dose Admin Hydroxyzine HCl 50 mg 01/02/25 21:00 01/02/25 20:43 Hydroxyzine Hcl 50 Mg Tablet PO 50 mg BEDTIME MARTINEZ Administration Medical Decision Making Medical Decision Making [facility] Narrative: 44 year old male with pmhx significant for MDD, anxiety, bipolar disorder, OCD presents to the ED today from [facility] for evaluation of increasing suicidal ideation. Differential diagnosis includes anemia, electrolyte abnormality, mood disorder, anxiety, depression, SI, polysubstance abuse Presentation not consistent with acute organic causes to include delirium, dementia or drug induced disorders (acute ingestions or withdrawal; no evidence of toxidrome).? Given the H&P, I suspect this patient is suicidal and will require observation. Will consult care team to evaluate the patient. Will also obtain labs for medical clearance. Plan: labs, EKG, ASA/APAP levels, ETOH level, UDS, care team consultation, reassessment Differential Diagnosis Differential Diagnoses: The differential diagnosis associated with the presentation includes As above Admission/Observation Consideration of admission/observation: Escalation of care including admission/observation considered Lab Data [facility] Lab Attestation statement: I reviewed the patient's lab results. As above 01/02/25 15:44 01/03/25 08:06 Labs: Lab Results 01/02/25 01/02/25 01/02/25 Range/Units 14:59 15:44 17:02 WBC 7.4 (4.8-10.8) X10*3/uL RBC 4.94 (4.60-5.80) X10*6/uL Hgb 13.9 L (14.0-18.0) g/dl Hct 43.0 (42.0-52.0) % MCV 87.0 (80.0-98.0) fL MCH 28.1 (27.0-33.0) pg MCHC 32.3 (31.0-36.0) g/dl RDW 13.4 (11.0-16.0) % Plt Count 192 (160-400) X10*3/uL MPV 10.0 (9.4-12.4) fL Absolute Nucleated RBC 0.000 (0.0-0.012) X10*3/uL Nucleated RBC % (auto) 0.0 (0.0-0.2) /100WBC Sodium 140 (135-145) mmol/L Potassium 4.0 (3.3-5.1) mmol/L Chloride 106 (96-108) mmol/L Carbon Dioxide 28 (22-29) mmol/L Anion Gap 10 L (12-20) BUN 10 (9-16) mg/dL Creatinine 1.03 (0.5-1.4) mg/dL Estim Creat Clear Calc 123.3 Estimated GFR > 60 Random Glucose 85 (60-115) mg/dL Calcium 9.8 (8.4-10.2) mg/dL Total Bilirubin 0.4 (0.0-1.0) mg/dL Direct Bilirubin 0.2 (0.0-0.5) mg/dL AST 18 (5-37) U/L ALT 19 (0-40) U/L Alkaline Phosphatase 71 (39-117) U/L Total Protein 7.1 (6.5-8.0) g/dL Albumin 4.7 (3.5-5.0) g/dL Urine Color TNP Urine Appearance TNP Urine pH TNP Ur Specific [place] TNP Urine Protein TNP Urine Glucose (UA) TNP Urine Ketones TNP Urine Blood TNP Urine Nitrite TNP Ur Leukocyte Esterase TNP Salicylates < 5.0 L (15-30) mg/dL Urine Opiates Screen TNP Ur Buprenorphine Scrn TNP Ur Oxycodone Screen TNP Urine Methadone Screen TNP Urine Fentanyl Screen TNP Acetaminophen < 3 (<30) mcg/mL Ur Barbiturates Screen TNP Ur Phencyclidine Scrn TNP Ur Amphetamines Screen TNP U Benzodiazepines Scrn TNP Urine Cocaine Screen TNP U Marijuana (THC) Screen TNP Ethyl Alcohol < 10 mg/dL 01/02/25 Range/Units 17:03 WBC (4.8-10.8) X10*3/uL RBC (4.60-5.80) X10*6/uL Hgb (14.0-18.0) g/dl Hct (42.0-52.0) % MCV (80.0-98.0) fL MCH (27.0-33.0) pg MCHC (31.0-36.0) g/dl RDW (11.0-16.0) % Plt Count (160-400) X10*3/uL MPV (9.4-12.4) fL Absolute Nucleated RBC (0.0-0.012) X10*3/uL Nucleated RBC % (auto) (0.0-0.2) /100WBC Sodium (135-145) mmol/L Potassium (3.3-5.1) mmol/L Chloride (96-108) mmol/L Carbon Dioxide (22-29) mmol/L Anion Gap (12-20) BUN (9-16) mg/dL Creatinine (0.5-1.4) mg/dL Estim Creat Clear Calc Estimated GFR Random Glucose (60-115) mg/dL Calcium (8.4-10.2) mg/dL Total Bilirubin (0.0-1.0) mg/dL Direct Bilirubin (0.0-0.5) mg/dL AST (5-37) U/L ALT (0-40) U/L Alkaline Phosphatase (39-117) U/L Total Protein (6.5-8.0) g/dL Albumin (3.5-5.0) g/dL Urine Color Yellow Urine Appearance Clear Urine pH 6.5 Ur Specific [place] 1.010 Urine Protein Negative Urine Glucose (UA) Negative Urine Ketones Negative Urine Blood Negative Urine Nitrite Negative Ur Leukocyte Esterase Negative Salicylates (15-30) mg/dL Urine Opiates Screen Not Detected Ur Buprenorphine Scrn Not Detected Ur Oxycodone Screen Not Detected Urine Methadone Screen Not Detected Urine Fentanyl Screen Not Detected Acetaminophen (<30) mcg/mL Ur Barbiturates Screen Not Detected Ur Phencyclidine Scrn Not Detected Ur Amphetamines Screen Not Detected U Benzodiazepines Scrn Not Detected Urine Cocaine Screen Not Detected U Marijuana (THC) Screen Not Detected Ethyl Alcohol mg/dL Independent Historian Clinical information obtained from an independent historian. History obtained from or confirmed by: EMS External Record Review External record reviewed: Inpatient record Chronic Conditions Patient?s care impacted by: Other (MDD, anxiety, ETOH abuse) Social Determinants Patient?s care significantly limited by Social Determinants of Health including: Other Social Determinant of Health Critical Care Time Critical Care Time Critical Care Time: No Discharge Plan Discharge Clinical Impression: Suicidal ideation, Depression Patient Disposition: Admitted As Inpatient Interventions: Admission Worksheet (ED) Last Done: 01/02/25 22:48 Discharge Date/Time: 01/02/25 22:50
--- NOTE | 2025-01-02 15:50 | PC.NURSE ---
half-way faxed med list and med rec completed per list
[2025-01-02 16:03] LABS: Anion Gap 10 (12-20); Blood Urea Nitrogen 10 mg/dL (9-16); Calcium 9.8 mg/dL (8.4-10.2); Carbon Dioxide 28 mmol/L (22-29); Chloride 106 mmol/L (96-108); Creatinine Clr Calc Pharmacy 123.3; Estimated Glomerular Filt Rate > 60; Potassium 4.0 mmol/L (3.3-5.1); Sodium 140 mmol/L (135-145)
[2025-01-02 16:04] LABS: Hematocrit 43.0 % (42.0-52.0); Hemoglobin 13.9 g/dl (14.0-18.0); Mean Corpuscular HGB Conc 32.3 g/dl (31.0-36.0); Mean Corpuscular Hemoglobin 28.1 pg (27.0-33.0); Mean Corpuscular Volume 87.0 fL (80.0-98.0); NRBC Abs Auto 0.000 X10*3/uL (0.0-0.012); NRBC Pct Auto 0.0 /100WBC (0.0-0.2); Platelet Count 192 X10*3/uL (160-400); Red Blood Count 4.94 X10*6/uL (4.60-5.80); White Blood Count 7.4 X10*3/uL (4.8-10.8)
[2025-01-02 17:11] LABS: Appearance Urine Clear; Glucose Urine UA Negative (Negative); PH 6.5 (5.0-9.0); Specific Gravity - Urine 1.010 (1.005-1.025)
[2025-01-02 17:20] LABS: Cannabinoid Screen Urine Not Detected (Not Detect)
[2025-01-02 17:29] LABS: Acetaminophen LAB < 3 mcg/mL (<30); Alanine Aminotransferase 19 U/L (0-40); Albumin Level 4.7 g/dL (3.5-5.0); Alkaline Phosphatase 71 U/L (39-117); Aspartate Amino Transferase 18 U/L (5-37); Salicylate < 5.0 mg/dL (15-30); Total Protein 7.1 g/dL (6.5-8.0)
--- NOTE | 2025-01-02 17:42 | PHA.MEDREC ---
Pharmacy Consult ? Medication Reconciliation RN has completed the medication reconciliation, PHARMACY REVIEWED. MED LIST FROM [facility].
[2025-01-02 20:33] VITALS: BP 118/72; PULSE 59; RESP 16; TEMP 36.8; O2SAT 96
--- NOTE | 2025-01-02 22:02 | PC.NURSE ---
report given to Randell MARTINEZ
--- NOTE | 2025-01-03 01:26 | PC.ADMIT ---
Patient is a 44-year-old Vietnamese-speaking male admitted to [facility] [place] [facility] for treatment of suicidal ideation. PMHx: MDD, alcohol abuse, HTN, Tachycardia, sleep apnea uses CPAP at home. Patient reports experiencing suicidal ideation for one week, with thoughts of hanging himself in the closet. Today, while in the kitchen watching someone cut food with a knife, he began having thoughts about grabbing the knife and slitting wrists. After expressing these feelings to someone at the facility, he was transported to the ED for further evaluation. Patient reports a history of self-harming behaviours cutting wrist but no suicide attempts. He states he has out patient provider for medication management and has been compliant with his medications. He is currently at [facility] facility for help with alcoholism and reports his last alcohol consumption was over a month ago; BAL was negative, no signs of withdrawal observed. Denies illicit substance use Patient is easy to engage with, calm, and cooperative. Thought process is logical and well-organized; speech is spontaneous. Mood depressed affect congruent with mood. Denies AH/VH/TH. Denies HI. Reports moderate anxiety and depression. Had suicidal thoughts earlier in the day but denies current suicidal ideation at present, feels safe on the unit and states he can alert staff if feeling unsafe. Denies any physical complaints of pain. No psychiatric or delusional thoughts or behaviors observed. Compliant with skin checks and V/S on arrival to the unit. Skin intact. Ambulates independently with steady gait. Reported he will be able to sleep without CPAP tonight, provider will follow up with order. Oriented to unit and daily routine. Placed on 15-minute checks for safety, see crisis evaluation for additional information.
[2025-01-03 08:00] VITALS: BP 121/76; PULSE 72; TEMP 36; O2SAT 98
[2025-01-03 09:13] LABS: Hemoglobin A1C 123.0012 umol/L; Total Hemoglobin (HGBA1C) 3952.0107 umol/L
--- NOTE | 2025-01-03 09:13 | HO.PSYADMNOT ---
HPI Date of Service: 01/03/25 Chief Complaint: SI Sources of Information: patient interviewed, chart reviewed and crisis/core team assessment reviewed HPI Subjective Notes: Frost Warning, Conditional Voluntary and 3 Day Narrative: pt seen at 2:30pm on 01/03/25 Pt is a 44 yo male with hx of MDD, anxiety/panic attacks, JESSICA and alcohol abuse who presents for worsening anxiety and vague SI in face of adjusting to new penitentiary. Pt has been sober for 34 days and just started at [facility] dual diagnosis living penitentiary. Patient reports that he is overall doing well on current medication regimen which he takes daily. He moved to this new penitentiary with which he was excited but also tentative, not knowing people, not yet having his new therapist or provider. Patient chronically struggles with anxious, self-deprecating thoughts and started having overwhelmed feelings, worrying what he be able to handle the program, feeling taunted by the task ahead of... He said over the next 3 days this anxiety swelled and he started making comments that he did not want to be alive...He had thoughts about hanging himself or grabbing a knife and slitting his wrists, however he says they were just thoughts that passed through his mind and never with any intent or plans. Pt distraught and program sent him for evaluation in the ED. Patient denies any actual SI, plans or intention and says these comments were made in the heat of his overwhelming anxiety and just a part of his extended panic attack. Patient currently denies SI. Thinks is medications are mostly helpful but would like some adjustments. No drug or alcohol use; no AVH; no kristie Past Psychiatric History: Hospital stays: [facility] admission to [facility] 2022. [place] 2013 He had ECT . has had at least 3 hosps. also has done PHP at least once, which he found helpful, and some [facility] stays. no h/o suicide attempts (but did place a plastic bag over his head during [facility] stay once). h/o SIB - cutting. has required stitches in the past. also slapping himself in the face. Therapist is HOANG Pang. Psychiatrist is HOANG Sanchez. HISTORY OF SEROTONIN SYNDROME Treatment trials: ECT: Said after 6 sessions had body numbness; feels that memory has not been the same since Serotonin syndrome on Zoloft and mirtazapine [place]: Said it made him feel better but his outpatient provider discontinued it saying he did not need it Effexor, Zoloft, Luvox, Wellbutrin (only on for a few weeks but was worried about increased heart rate so discontinued) Depakote: Chamisal sedated Medical Evaluation Reviewed: Yes [facility] Medical History (Updated 01/03/25 @ 17:20 by Ken Bonilla MD) Adjustment disorder with mixed disturbance of emotions and conduct in remission JESSICA (generalized anxiety disorder) Alcohol abuse Sleep apnea MDD (major depressive disorder), recurrent episode, severe Alcohol use disorder, mild, in controlled environment, abuse Transaminitis Tachycardia HTN (hypertension) Family History: Father committed suicide when patient was 9 years old; father with alcohol use disorder. Aunt alcohol use disorder sister - bipolar disorder Cousin completed suicide Social History: Lived with his mother. Mother last year 10/29/21 youngest of 4 children. father suicided when pt was 9 yo. 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 single. No children. Substance History: Alcohol: Has been sober for the past 34 days. Prior to that he was sober for a month, relapsed for a day, then sober for a month, then relapsed for a day Trauma History: Father's suicide when patient was 9 years old Diagnostics Vital Signs (24Hr): Vital Signs - 24 hr 01/02/25 14:42 01/02/25 20:33 Temperature 97.8 F 98.2 F Pulse Rate 72 59 Respiratory Rate 16 16 Blood Pressure 123/71 118/72 Pulse Oximetry 96 96 Oxygen Delivery Method Room Air Room Air BMI result Body Mass Index 35.7 Labs 01/02/25 15:44 01/03/25 08:06 Labs: Laboratory Results - last 48 hr 01/02/25 01/02/25 01/02/25 14:59 15:44 17:02 WBC 7.4 RBC 4.94 Hgb 13.9 L Hct 43.0 MCV 87.0 MCH 28.1 MCHC 32.3 RDW 13.4 Plt Count 192 MPV 10.0 Absolute Nucleated RBC 0.000 Nucleated RBC % (auto) 0.0 Sodium 140 Potassium 4.0 Chloride 106 Carbon Dioxide 28 Anion Gap 10 L BUN 10 Creatinine 1.03 Estim Creat Clear Calc 123.3 Estimated GFR > 60 Random Glucose 85 Calcium 9.8 Total Bilirubin 0.4 Direct Bilirubin 0.2 AST 18 ALT 19 Alkaline Phosphatase 71 Total Protein 7.1 Albumin 4.7 Urine Color TNP Urine Appearance TNP Urine pH TNP Ur Specific [place] TNP Urine Protein TNP Urine Glucose (UA) TNP Urine Ketones TNP Urine Blood TNP Urine Nitrite TNP Ur Leukocyte Esterase TNP Salicylates < 5.0 L Urine Opiates Screen TNP Ur Buprenorphine Scrn TNP Ur Oxycodone Screen TNP Urine Methadone Screen TNP Urine Fentanyl Screen TNP Acetaminophen < 3 Ur Barbiturates Screen TNP Ur Phencyclidine Scrn TNP Ur Amphetamines Screen TNP U Benzodiazepines Scrn TNP Urine Cocaine Screen TNP U Marijuana (THC) Screen TNP Ethyl Alcohol < 10 01/02/25 17:03 WBC RBC Hgb Hct MCV MCH MCHC RDW Plt Count MPV Absolute Nucleated RBC Nucleated RBC % (auto) Sodium Potassium Chloride Carbon Dioxide Anion Gap BUN Creatinine Estim Creat Clear Calc Estimated GFR Random Glucose Calcium Total Bilirubin Direct Bilirubin AST ALT Alkaline Phosphatase Total Protein Albumin Urine Color Yellow Urine Appearance Clear Urine pH 6.5 Ur Specific [place] 1.010 Urine Protein Negative Urine Glucose (UA) Negative Urine Ketones Negative Urine Blood Negative Urine Nitrite Negative Ur Leukocyte Esterase Negative Salicylates Urine Opiates Screen Not Detected Ur Buprenorphine Scrn Not Detected Ur Oxycodone Screen Not Detected Urine Methadone Screen Not Detected Urine Fentanyl Screen Not Detected Acetaminophen Ur Barbiturates Screen Not Detected Ur Phencyclidine Scrn Not Detected Ur Amphetamines Screen Not Detected U Benzodiazepines Scrn Not Detected Urine Cocaine Screen Not Detected U Marijuana (THC) Screen Not Detected Ethyl Alcohol Meds/Allergies Meds Home Medications ?Medication ?Instructions ?Recorded ?Confirmed ?Type clonazepam 1 mg tablet 1 mg PO BID 06/29/23 01/02/25 History propranolol 10 mg tablet 10 mg PO BID 06/29/23 01/02/25 History atorvastatin 20 mg tablet 20 mg PO BEDTIME cholesterol 03/01/24 01/02/25 History fluoxetine 40 mg capsule 80 mg PO DAILY 03/01/24 01/02/25 History amlodipine 10 mg tablet 10 mg PO DAILY blood pressure 09/06/24 01/02/25 History lamotrigine 25 mg tablet 50 mg PO DAILY 09/06/24 01/02/25 History acetaminophen 325 mg tablet 650 mg PO Q4-6H PRN PAIN OR FEVER 01/02/25 01/02/25 History albuterol sulfate 90 mcg/actuation 2 puff inhalation Q4H PRN 01/02/25 01/02/25 History aerosol inhaler Shortness Of Breath aluminum-mag hydroxide-simethicone 20 ml PO Q4-6H PRN Stomach Upset 01/02/25 01/02/25 History 200 mg-200 mg-20 mg/5 mL oral susp guaifenesin 200 mg/5 mL oral liquid 200 - 400 mg PO Q4H PRN Cough 01/02/25 01/02/25 History hydroxyzine pamoate 50 mg capsule 50 mg PO BEDTIME 01/02/25 01/02/25 History ibuprofen 400 mg tablet 400 mg PO Q6H PRN PAIN OR FEVER 01/02/25 01/02/25 History lamotrigine 100 mg tablet 100 mg PO BEDTIME 01/02/25 01/02/25 History magnesium hydroxide 400 mg/5 mL 2,400 mg PO DAILY PRN Constipation 01/02/25 01/02/25 History oral suspension (Milk of Magnesia) naloxone 4 mg/actuation nasal 4 mg intranasal Q2M PRN Opioid 01/02/25 01/02/25 History spray (Narcan) Overdose naltrexone 50 mg tablet 50 mg PO DAILY 01/02/25 01/02/25 History trazodone 100 mg tablet 100 mg PO BEDTIME 01/02/25 01/02/25 History Allergies Allergies Allergy/AdvReac Type Severity Reaction Status Date / Time mirtazapine (MIRTAZAPINE) Allergy Intermediate UNKNOWN Verified 01/02/25 14:42 sulfamethoxazole (From Allergy Unknown RASH Verified 01/02/25 14:42 BACTRIM) trimethoprim (From BACTRIM) Allergy Unknown RASH Verified 01/02/25 14:42 Mental Status Exam Mental Status Exam Narrative: Pt is alert and oriented; behavior is cooperative, friendly and calm; patient is not in distress; dressed in casual attire, tattoos on arms, neck, scruffy but adequate hygiene; mood is described as anxious and affect congruent; eye contact appropriate; Speech is normal rate, volume and prosody and not pressured; no psychomotor agitation/retardation present; thought process is organized and goal directed; Thought content is intermittent self-deprecating thoughts; on dealing with anxiety, treatment,, staying sober; otherwise pertinent to relevant topics and without any delusional content, paranoid ideations or grandiosity; denies any SI/HI. There is no evidence of perceptual disturbance. Patients insight and judgment impaired but improving Assessment & Plan Assessment & Plan (1) JESSICA (generalized anxiety disorder): Status: Acute Code(s): F41.1 - Generalized anxiety disorder (2) MDD (major depressive disorder), recurrent episode, severe: Status: Acute Qualifiers: Psychotic features: without psychotic features Qualified Code(s): F33.2 - Major depressive disorder, recurrent severe without psychotic features Code(s): F33.2 - Major depressive disorder, recurrent severe without psychotic features (3) Panic disorder: Status: Acute Code(s): F41.0 - Panic disorder [episodic paroxysmal anxiety] (4) Obsessive compulsive disorder: Status: Acute Qualifiers: Obsessive-compulsive disorder type: unspecified Qualified Code(s): F42.9 - Obsessive-compulsive disorder, unspecified Code(s): F42.9 - Obsessive-compulsive disorder, unspecified (5) Alcohol use disorder, severe, in early remission: Status: Acute Code(s): F10.21 - Alcohol dependence, in remission (6) Adjustment disorder with mixed disturbance of emotions and conduct in remission: Status: Acute Code(s): F43.25 - Adjustment disorder with mixed disturbance of emotions and conduct Plan HPI: Pt is a 44 yo male with hx of MDD, anxiety/panic attacks, JESSICA and alcohol abuse who presents for worsening anxiety and vague SI in face of adjusting to new penitentiary. Pt has been sober for 34 days and just started at [facility] dual diagnosis living penitentiary. Patient reports that he is overall doing well on current medication regimen which he takes daily. He moved to this new penitentiary with which he was excited but also tentative, not knowing people, not yet having his new therapist or provider. Patient chronically struggles with anxious, self-deprecating thoughts and started having overwhelmed feelings, worrying what he be able to handle the program, feeling taunted by the task ahead of... He said over the next 3 days this anxiety swelled and he started making comments that he did not want to be alive... And so program sent him for evaluation in the ED. Patient denies any actual SI, plans or intention and says these comments were made in the heat of his overwhelming anxiety and just a part of his extended panic attack. Patient currently denies SI. Thinks is medications are mostly helpful but would like some adjustments. No drug or alcohol use; no AVH; no kristie Formulation/clinical reasoning: Patient's presentation seems to be an exacerbation of his JESSICA by struggling to adjust to new situation. Patient thinks if he had additional PRNs perhaps he could have prevented anxiety from becoming so overwhelming. Patient would like to remain on current medication regimen; his Lamictal was increased to 150 about a week ago and he agrees to have titration continued (used to be on 200 mg b.i.d.). Agrees to restart clonidine as a p.r.n. since he benefitted from it before; reviewed risks/side effects and patient did have some bradycardia in the past but thinks that this medication is tolerable and finds it helpful; also agrees to have Zyprexa p.r.n.; discussed risks/side effects of Zyprexa including metabolic syndrome and patient would like to get on metformin, having gained about 80 lb since he started Zyprexa. Patient wants to returned to [facility] -has been on Adderall in the past Plan: CV Q 15 minute checks Continue home medications Continue Lamictal 50 mg daily and 100 mg q.h.s.; will titrate further Start clonidine 0.1 mg as a p.r.n. Start Zyprexa 2.5 mg as a p.r.n. -reviewed labs with patient Patient educated on: diagnosis, medication risk/benefits, substance abuse, therapeutic strategies and medical condition Informed Consent: understands Reason for continued inpatient stay Substantial Risk for: rapid decompensation Statement Statement: I have reviewed the history and physical and performed a pertinent examination on my patient. No changes have occurred unless specified. If the History and Physical was not performed prior to admission, the Hospitalist's service will be consulted for completing the admission physical. Time Spent With Patient Time: Total time managing care of this patient today ____ minutes.
[2025-01-03 09:22] LABS: Alanine Aminotransferase 23 U/L (0-40); Albumin Level 5.1 g/dL (3.5-5.0); Alkaline Phosphatase 92 U/L (39-117); Anion Gap 13 (12-20); Aspartate Amino Transferase 23 U/L (5-37); Blood Urea Nitrogen 9 mg/dL (9-16); Calcium 9.8 mg/dL (8.4-10.2); Carbon Dioxide 28 mmol/L (22-29); Chloride 106 mmol/L (96-108); Cholesterol 150 mg/dL (<200); Creatinine Clr Calc Pharmacy 129.6; Estimated Glomerular Filt Rate > 60; HDL Cholesterol 37 mg/dL (>40); Potassium 4.2 mmol/L (3.3-5.1); Sodium 143 mmol/L (135-145); Total Protein 7.9 g/dL (6.5-8.0); Triglycerides 127 mg/dL (<150)
[2025-01-03 09:32] VITALS: PULSE 98
[2025-01-03 09:33] VITALS: BP 121/76
[2025-01-03 09:37] LABS: Free T4 (Free Thyroxine) 1.02 ng/dL (0.71-1.85); Thyroid Stimulating Hormone 1.25 uIU/mL (0.32-4.0)
[2025-01-03 20:00] VITALS: BP 129/81; PULSE 75; TEMP 36
[2025-01-03 20:33] VITALS: BP 129/81; PULSE 75
[2025-01-03 20:52] VITALS: PULSE 81; O2SAT 97
[2025-01-04 07:59] VITALS: BP 137/74; PULSE 73; TEMP 36.7; O2SAT 98
[2025-01-04 11:59] LABS: Resp Syncy Virus RNA Qual PCR NEGATIVE (Negative); SARS COV2 PCR INHOUSE NEGATIVE (Negative)
--- NOTE | 2025-01-04 17:33 | HO.PSYCHPN ---
Subjective Subjective Date of Service: 01/04/25 Reason For Visit: SI Interim History: Patient reports URI symptoms. Wearing a mask. Mood improved. Anxiety improved. Denies SI. Tolerating medications well. No AVH. Review of Systems Review of Systems Yes all other systems are reviewed and are negative Mental Status Exam Mental Status Exam Narrative: Pt is alert and oriented; behavior is cooperative, friendly and calm; patient is not in distress; dressed in casual attire, tattoos on arms, neck, scruffy but adequate hygiene; mood is described as anxious and affect congruent; eye contact appropriate; Speech is normal rate, volume and prosody and not pressured; no psychomotor agitation/retardation present; thought process is organized and goal directed; Thought content is intermittent self-deprecating thoughts; on dealing with anxiety, treatment,, staying sober; otherwise pertinent to relevant topics and without any delusional content, paranoid ideations or grandiosity; denies any SI/HI. There is no evidence of perceptual disturbance. Patients insight and judgment impaired but improving Diagnostics Vital Signs (24Hr): Vital Signs - 24 hr 01/03/25 20:00 01/03/25 20:33 01/04/25 07:59 Temperature 96.8 F 98.1 F Pulse Rate 75 75 73 Blood Pressure 129/81 129/81 137/74 Pulse Oximetry 98 Oxygen Delivery Method Room Air BMI result Body Mass Index 35.7 Labs 01/02/25 15:44 01/03/25 08:06 Labs: Laboratory Results - last 48 hr 01/03/25 01/04/25 08:06 11:14 Sodium 143 Potassium 4.2 Chloride 106 Carbon Dioxide 28 Anion Gap 13 BUN 9 Creatinine 0.98 Estim Creat Clear Calc 129.6 Estimated GFR > 60 Random Glucose 97 Estimat Average Glucose 97 Hemoglobin A1c % 5.0 Calcium 9.8 Total Bilirubin 0.5 AST 23 ALT 23 Alkaline Phosphatase 92 Total Protein 7.9 Albumin 5.1 H Triglycerides 127 Cholesterol 150 LDL Cholesterol, Calc 88 HDL Cholesterol 37 L TSH 1.25 Free T4 1.02 Influenza Type A (PCR) NEGATIVE Influenza Type B (PCR) NEGATIVE RSV RNA Qual (PCR) NEGATIVE SARS-CoV-2 RNA (RT-PCR) NEGATIVE Medications Medications Current Medications Acetaminophen (Acetaminophen 325 Mg Tablet) 650 mg PO Q6H PRN PRN Reason: Headache/Pain, Scale 1-10 Last Admin: 01/04/25 14:50 Dose: 650 mg Al Hydroxide/Mg Hydroxide (Magnesium Hydrox/Alum Hydrox 30 Ml Oral.Susp) 30 ml PO Q6H PRN PRN Reason: Heartburn/Nausea Albuterol Sulfate (Albuterol Sulfate 90 Mcg 8 Gm Inhaler) 2 puff INHALE Q4H PRN PRN Reason: Shortness of Breath Amlodipine Besylate (Amlodipine Besylate 10 Mg Tablet) 10 mg PO DAILY [facility]; Protocol Last Admin: 01/04/25 08:57 Dose: 10 mg Atorvastatin Calcium (Atorvastatin Calcium 20 Mg Tablet) 20 mg PO BEDTIME [facility] Last Admin: 01/03/25 20:33 Dose: 20 mg Clonazepam (Clonazepam 1 Mg Tablet) 1 mg PO BID [facility] Last Admin: 01/04/25 07:52 Dose: 1 mg Clonidine HCl (Clonidine Hcl 0.1 Mg Tablet) 0.1 mg PO DAILY PRN; Protocol PRN Reason: moderate anxiety Fluoxetine HCl (Fluoxetine Hcl 20 Mg Capsule) 80 mg PO DAILY [facility] Last Admin: 01/04/25 08:58 Dose: 80 mg Hydroxyzine HCl (Hydroxyzine Hcl 50 Mg Tablet) 50 mg PO BEDTIME [facility] Last Admin: 01/03/25 20:33 Dose: 50 mg Ibuprofen (Ibuprofen 400 Mg Tablet) 400 mg PO Q6H PRN PRN Reason: PAIN OR FEVER Lamotrigine (Lamotrigine 100 Mg Tablet) 100 mg PO BEDTIME [facility] Last Admin: 01/03/25 20:34 Dose: 100 mg Lamotrigine (Lamotrigine 25 Mg Tablet) 50 mg PO DAILY [facility] Last Admin: 01/04/25 08:58 Dose: 50 mg Magnesium Hydroxide (Milk Of Magnesia 30 Ml Oral.Susp) 30 ml PO DAILY PRN PRN Reason: Constipation Metformin HCl (Metformin Hcl Er 500 Mg Tab.Er.24h) 500 mg PO DAILY@1700 [facility] Last Admin: 01/04/25 17:05 Dose: 500 mg Naltrexone HCl (Naltrexone Hcl 50 Mg Tablet) 50 mg PO DAILY [facility] Last Admin: 01/04/25 08:58 Dose: 50 mg Nicotine (Nicotine 21 Mg Patch.Td24) 21 mg TRANSDERMA DAILY PRN PRN Reason: nicotine craving Nicotine Polacrilex (Nicotine Polacrilex 2 Mg Gum) 2 mg BUCCAL Q2H PRN PRN Reason: Nicotine Cravings Olanzapine (Olanzapine 10 Mg Tablet) 10 mg PO BEDTIME [facility] Last Admin: 01/03/25 20:33 Dose: 10 mg Olanzapine (Olanzapine 2.5 Mg Tablet) 2.5 mg PO Q4H PRN PRN Reason: mod-severe anxiety Propranolol HCl (Propranolol Hcl 10 Mg Tablet) 10 mg PO BID [facility]; Protocol Last Admin: 01/04/25 08:57 Dose: 10 mg Trazodone HCl (Trazodone Hcl 100 Mg Tablet) 100 mg PO BEDTIME [facility] Last Admin: 01/03/25 20:33 Dose: 100 mg Trazodone HCl (Trazodone Hcl 50 Mg Tablet) 50 mg PO BEDTIME MRX1 PRN PRN Reason: Insomnia Allergies Allergies Allergy/AdvReac Type Severity Reaction Status Date / Time mirtazapine (MIRTAZAPINE) Allergy Intermediate UNKNOWN Verified 01/02/25 14:42 sulfamethoxazole (From Allergy Unknown RASH Verified 01/02/25 14:42 BACTRIM) trimethoprim (From BACTRIM) Allergy Unknown RASH Verified 01/02/25 14:42 Assessment & Plan Assessment & Plan (1) JESSICA (generalized anxiety disorder): Status: Acute Code(s): F41.1 - Generalized anxiety disorder (2) MDD (major depressive disorder), recurrent episode, severe: Qualifiers: Psychotic features: without psychotic features Qualified Code(s): F33.2 - Major depressive disorder, recurrent severe without psychotic features Status: Acute Code(s): F33.2 - Major depressive disorder, recurrent severe without psychotic features (3) Panic disorder: Status: Acute Code(s): F41.0 - Panic disorder [episodic paroxysmal anxiety] (4) Obsessive compulsive disorder: Qualifiers: Obsessive-compulsive disorder type: unspecified Qualified Code(s): F42.9 - Obsessive-compulsive disorder, unspecified Status: Acute Code(s): F42.9 - Obsessive-compulsive disorder, unspecified (5) Alcohol use disorder, severe, in early remission: Status: Acute Code(s): F10.21 - Alcohol dependence, in remission (6) Adjustment disorder with mixed disturbance of emotions and conduct in remission: Status: Acute Code(s): F43.25 - Adjustment disorder with mixed disturbance of emotions and conduct Plan HPI: Pt is a 44 yo male with hx of MDD, anxiety/panic attacks, JSESICA and alcohol abuse who presents for worsening anxiety and vague SI in face of adjusting to new assisted. Pt has been sober for 34 days and just started at [facility] dual diagnosis living assisted. Patient reports that he is overall doing well on current medication regimen which he takes daily. He moved to this new assisted with which he was excited but also tentative, not knowing people, not yet having his new therapist or provider. Patient chronically struggles with anxious, self-deprecating thoughts and started having overwhelmed feelings, worrying what he be able to handle the program, feeling taunted by the task ahead of... He said over the next 3 days this anxiety swelled and he started making comments that he did not want to be alive... And so program sent him for evaluation in the ED. Patient denies any actual SI, plans or intention and says these comments were made in the heat of his overwhelming anxiety and just a part of his extended panic attack. Patient currently denies SI. Thinks is medications are mostly helpful but would like some adjustments. No drug or alcohol use; no AVH; no kristie Formulation/clinical reasoning: Patient's presentation seems to be an exacerbation of his JESSICA by struggling to adjust to new situation. Patient thinks if he had additional PRNs perhaps he could have prevented anxiety from becoming so overwhelming. Patient would like to remain on current medication regimen; his Lamictal was increased to 150 about a week ago and he agrees to have titration continued (used to be on 200 mg b.i.d.). Agrees to restart clonidine as a p.r.n. since he benefitted from it before; reviewed risks/side effects and patient did have some bradycardia in the past but thinks that this medication is tolerable and finds it helpful; also agrees to have Zyprexa p.r.n.; discussed risks/side effects of Zyprexa including metabolic syndrome and patient would like to get on metformin, having gained about 80 lb since he started Zyprexa. Patient wants to returned to [facility] -has been on Adderall in the past 01/04: Ordered respiratory virus panel. Otherwise continue current management and treatment plan. Plan: CV Q 15 minute checks Continue home medications Continue Lamictal 50 mg daily and 100 mg q.h.s.; will titrate further Start clonidine 0.1 mg as a p.r.n. Start Zyprexa 2.5 mg as a p.r.n. -reviewed labs with patient Reason for continued inpatient stay Substantial Risk for: harm to self, inability to function and rapid decompensation Time Spent With Patient Time: Total time managing care of this patient today ____ minutes.
[2025-01-04 19:40] VITALS: BP 121/73; PULSE 63; RESP 16; TEMP 36.3; O2SAT 96
[2025-01-05 07:54] VITALS: BP 126/82; PULSE 77; TEMP 37.1; O2SAT 97
--- NOTE | 2025-01-05 09:21 | P.PNPSI_ITS ---
Subjective Subjective Date of Service: 01/05/25 Reason For Visit: SI Interim History: Respiratory viral panel negative. Feeling better. Says he thinks cough was related to him stopping smoking while in the hospital. Reports his depression is 2/10 and anxiety is 1/10. Mood improved. Anxiety improved. Denies SI. Tolerating medications well. Hoping for DC back to his [facility] when ready. No AVH. Review of Systems Review of Systems Yes all other systems are reviewed and are negative Mental Status Exam Mental Status Exam Narrative: Pt is alert and oriented; behavior is cooperative, friendly and calm; patient is not in distress; dressed in casual attire, tattoos on arms, neck, scruffy but adequate hygiene; mood is described as anxious and affect congruent; eye contact appropriate; Speech is normal rate, volume and prosody and not pressured; no psychomotor agitation/retardation present; thought process is organized and goal directed; Thought content is intermittent self-deprecating thoughts; on dealing with anxiety, treatment,, staying sober; otherwise pertinent to relevant topics and without any delusional content, paranoid ideations or grandiosity; denies any SI/HI. There is no evidence of perceptual disturbance. Patients insight and judgment impaired but improving Diagnostics Vital Signs (24Hr): Vital Signs - 24 hr 01/04/25 19:40 01/05/25 07:54 Temperature 97.4 F 98.7 F Pulse Rate 63 77 Respiratory Rate 16 Blood Pressure 121/73 126/82 Pulse Oximetry 96 97 Oxygen Delivery Method Room Air Room Air BMI result Body Mass Index 35.7 Labs 01/02/25 15:44 01/03/25 08:06 Labs: Laboratory Results - last 48 hr 01/03/25 01/04/25 08:06 11:14 Sodium 143 Potassium 4.2 Chloride 106 Carbon Dioxide 28 Anion Gap 13 BUN 9 Creatinine 0.98 Estim Creat Clear Calc 129.6 Estimated GFR > 60 Random Glucose 97 Calcium 9.8 Total Bilirubin 0.5 AST 23 ALT 23 Alkaline Phosphatase 92 Total Protein 7.9 Albumin 5.1 H Triglycerides 127 Cholesterol 150 LDL Cholesterol, Calc 88 HDL Cholesterol 37 L TSH 1.25 Free T4 1.02 Influenza Type A (PCR) NEGATIVE Influenza Type B (PCR) NEGATIVE RSV RNA Qual (PCR) NEGATIVE SARS-CoV-2 RNA (RT-PCR) NEGATIVE Medications Medications Current Medications Acetaminophen (Acetaminophen 325 Mg Tablet) 650 mg PO Q6H PRN PRN Reason: Headache/Pain, Scale 1-10 Last Admin: 01/05/25 08:47 Dose: 650 mg Al Hydroxide/Mg Hydroxide (Magnesium Hydrox/Alum Hydrox 30 Ml Oral.Susp) 30 ml PO Q6H PRN PRN Reason: Heartburn/Nausea Albuterol Sulfate (Albuterol Sulfate 90 Mcg 8 Gm Inhaler) 2 puff INHALE Q4H PRN PRN Reason: Shortness of Breath Amlodipine Besylate (Amlodipine Besylate 10 Mg Tablet) 10 mg PO DAILY [facility]; Protocol Last Admin: 01/05/25 08:44 Dose: 10 mg Atorvastatin Calcium (Atorvastatin Calcium 20 Mg Tablet) 20 mg PO BEDTIME [facility] Last Admin: 01/04/25 20:19 Dose: 20 mg Clonazepam (Clonazepam 1 Mg Tablet) 1 mg PO BID [facility] Last Admin: 01/05/25 08:43 Dose: 1 mg Clonidine HCl (Clonidine Hcl 0.1 Mg Tablet) 0.1 mg PO DAILY PRN; Protocol PRN Reason: moderate anxiety Fluoxetine HCl (Fluoxetine Hcl 20 Mg Capsule) 80 mg PO DAILY [facility] Last Admin: 01/05/25 08:43 Dose: 80 mg Hydroxyzine HCl (Hydroxyzine Hcl 50 Mg Tablet) 50 mg PO BEDTIME [facility] Last Admin: 01/04/25 20:19 Dose: 50 mg Ibuprofen (Ibuprofen 400 Mg Tablet) 400 mg PO Q6H PRN PRN Reason: PAIN OR FEVER Lamotrigine (Lamotrigine 100 Mg Tablet) 100 mg PO BEDTIME [facility] Last Admin: 01/04/25 20:20 Dose: 100 mg Lamotrigine (Lamotrigine 25 Mg Tablet) 50 mg PO DAILY [facility] Last Admin: 01/05/25 08:44 Dose: 50 mg Magnesium Hydroxide (Milk Of Magnesia 30 Ml Oral.Susp) 30 ml PO DAILY PRN PRN Reason: Constipation Metformin HCl (Metformin Hcl Er 500 Mg Tab.Er.24h) 500 mg PO DAILY@1700 [facility] Last Admin: 01/04/25 17:05 Dose: 500 mg Naltrexone HCl (Naltrexone Hcl 50 Mg Tablet) 50 mg PO DAILY [facility] Last Admin: 01/05/25 08:44 Dose: 50 mg Nicotine (Nicotine 21 Mg Patch.Td24) 21 mg TRANSDERMA DAILY PRN PRN Reason: nicotine craving Nicotine Polacrilex (Nicotine Polacrilex 2 Mg Gum) 2 mg BUCCAL Q2H PRN PRN Reason: Nicotine Cravings Olanzapine (Olanzapine 10 Mg Tablet) 10 mg PO BEDTIME [facility] Last Admin: 01/04/25 20:19 Dose: 10 mg Olanzapine (Olanzapine 2.5 Mg Tablet) 2.5 mg PO Q4H PRN PRN Reason: mod-severe anxiety Propranolol HCl (Propranolol Hcl 10 Mg Tablet) 10 mg PO BID [facility]; Protocol Last Admin: 01/05/25 08:44 Dose: 10 mg Trazodone HCl (Trazodone Hcl 100 Mg Tablet) 100 mg PO BEDTIME [facility] Last Admin: 01/04/25 20:19 Dose: 100 mg Trazodone HCl (Trazodone Hcl 50 Mg Tablet) 50 mg PO BEDTIME MRX1 PRN PRN Reason: Insomnia Allergies Allergies Allergy/AdvReac Type Severity Reaction Status Date / Time mirtazapine (MIRTAZAPINE) Allergy Intermediate UNKNOWN Verified 01/02/25 14:42 sulfamethoxazole (From Allergy Unknown RASH Verified 01/02/25 14:42 BACTRIM) trimethoprim (From BACTRIM) Allergy Unknown RASH Verified 01/02/25 14:42 Assessment & Plan Assessment & Plan (1) JESSICA (generalized anxiety disorder): Status: Acute Code(s): F41.1 - Generalized anxiety disorder (2) MDD (major depressive disorder), recurrent episode, severe: Qualifiers: Psychotic features: without psychotic features Qualified Code(s): F33.2 - Major depressive disorder, recurrent severe without psychotic features Status: Acute Code(s): F33.2 - Major depressive disorder, recurrent severe without psychotic features (3) Panic disorder: Status: Acute Code(s): F41.0 - Panic disorder [episodic paroxysmal anxiety] (4) Obsessive compulsive disorder: Qualifiers: Obsessive-compulsive disorder type: unspecified Qualified Code(s): F 42.9 - Obsessive-compulsive disorder, unspecified Status: Acute Code(s): F42.9 - Obsessive-compulsive disorder, unspecified (5) Alcohol use disorder, severe, in early remission: Status: Acute Code(s): F10.21 - Alcohol dependence, in remission (6) Adjustment disorder with mixed disturbance of emotions and conduct in remission: Status: Acute Code(s): F43.25 - Adjustment disorder with mixed disturbance of emotions and conduct Plan HPI: Pt is a 44 yo male with hx of MDD, anxiety/panic attacks, JESSICA and alcohol abuse who presents for worsening anxiety and vague SI in face of adjusting to new [facility]. Pt has been sober for 34 days and just started at new [facility] dual diagnosis living [facility]. Patient reports that he is overall doing well on current medication regimen which he takes daily. He moved to this new [facility] with which he was excited but also tentative, not knowing people, not yet having his new therapist or provider. Patient chronically struggles with anxious, self-deprecating thoughts and started having overwhelmed feelings, worrying what he be able to handle the program, feeling taunted by the task ahead of... He said over the next 3 days this anxiety swelled and he started making comments that he did not want to be alive... And so program sent him for evaluation in the ED. Patient denies any actual SI, plans or intention and says these comments were made in the heat of his overwhelming anxiety and just a part of his extended panic attack. Patient currently denies SI. Thinks is medications are mostly helpful but would like some adjustments. No drug or alcohol use; no AVH; no kristie Formulation/clinical reasoning: Patient's presentation seems to be an exacerbation of his JESSICA by struggling to adjust to new situation. Patient thinks if he had additional PRNs perhaps he could have prevented anxiety from becoming so overwhelming. Patient would like to remain on current medication regimen; his Lamictal was increased to 150 about a week ago and he agrees to have titration continued (used to be on 200 mg b.i.d.). Agrees to restart clonidine as a p.r.n. since he benefitted from it before; reviewed risks/side effects and patient did have some bradycardia in the past but thinks that this medication is tolerable and finds it helpful; also agrees to have Zyprexa p.r.n.; discussed risks/side effects of Zyprexa including metabolic syndrome and patient would like to get on metformin, having gained about 80 lb since he started Zyprexa. Patient wants to returned to [facility] -has been on Adderall in the past 01/04: Ordered respiratory virus panel. Otherwise continue current management and treatment plan. 01/05: continue current management and treatment plan. Plan: CV Q 15 minute checks Continue home medications Continue Lamictal 50 mg daily and 100 mg q.h.s.; will titrate further Start clonidine 0.1 mg as a p.r.n. Start Zyprexa 2.5 mg as a p.r.n. -reviewed labs with patient Reason for continued inpatient stay Substantial Risk for: harm to self, inability to function and rapid decompensation Time Spent With Patient Time: Total time managing care of this patient today ____ minutes.
[2025-01-05 19:50] VITALS: BP 122/71; PULSE 64; RESP 16; TEMP 35.6; O2SAT 96
[2025-01-05 20:53] VITALS: BP 122/71; PULSE 64
[2025-01-06 08:00] VITALS: BP 142/88; PULSE 70; TEMP 36.1; O2SAT 98
[2025-01-06 20:00] VITALS: BP 121/71; PULSE 61; RESP 16; TEMP 35.9; O2SAT 96
[2025-01-06 20:55] VITALS: BP 121/71; PULSE 61
--- NOTE | 2025-01-06 22:27 | P.PNPSI_ITS ---
Subjective Subjective Date of Service: 01/06/25 Reason For Visit: SI Subjective Notes: Conditional Voluntary Healthcare Proxy: No Guardianship: No Medical Problems Affecting Mental Status: No Interim History: Medical record and nursing notes reviewed; case discussed during rounds with team/nursing staff, and met with patient for supportive therapy/psychoeducation, as well as medication management. Slept for 7.5 hours, was medication compliant, visible, attended groups, reports mild anxiety and depression rated a 2/10. Continued to improve in mood. No safety concerns. Mood is pretty good. He would like to return to [facility] program. Possible discharge by . Medication Compliance: Yes Side effects from medications: No Attending Groups: Yes Review of Systems Acute medical concerns: No Medical Review of Systems: unchanged Review of Systems Review of Systems Constitutional: Denies fatigue and Denies fever(s) Cardiovascular: Denies chest pain and Denies dyspnea Respiratory: Denies dyspnea Gastrointestinal: Denies abdominal pain Psychiatric: denies suicidal ideation Endocrine: Denies fatigue Yes all other systems are reviewed and are negative Mental Status Exam Mental Status Exam Narrative: Pt is alert and oriented; behavior is cooperative, friendly and calm; patient is not in distress; dressed in casual attire, tattoos on arms, neck, scruffy but adequate hygiene; mood is described as less anxious and depressed and affect congruent; eye contact appropriate; Speech is normal rate, volume and prosody and not pressured; no psychomotor agitation/retardation present; thought process is organized and goal directed; Thought content is WNL, future focus staying sober; otherwise pertinent to relevant topics and without any delusional content, paranoid ideations or grandiosity; denies any SI/HI. There is no evidence of perceptual disturbance. Patients insight and judgment are improving Diagnostics Vital Signs (24Hr): Vital Signs - 24 hr 01/06/25 08:00 01/06/25 20:00 01/06/25 20:55 Temperature 96.9 F 96.7 F L Pulse Rate 70 61 61 Respiratory Rate 16 Blood Pressure 142/88 H 121/71 121/71 Pulse Oximetry 98 96 Oxygen Delivery Method Room Air Room Air BMI result Body Mass Index 35.7 Labs 01/02/25 15:44 01/03/25 08:06 Medications Medications Current Medications Acetaminophen (Acetaminophen 325 Mg Tablet) 650 mg PO Q6H PRN PRN Reason: Headache/Pain, Scale 1-10 Last Admin: 01/06/25 14:38 Dose: 650 mg Al Hydroxide/Mg Hydroxide (Magnesium Hydrox/Alum Hydrox 30 Ml Oral.Susp) 30 ml PO Q6H PRN PRN Reason: Heartburn/Nausea Albuterol Sulfate (Albuterol Sulfate 90 Mcg 8 Gm Inhaler) 2 puff INHALE Q4H PRN PRN Reason: Shortness of Breath Amlodipine Besylate (Amlodipine Besylate 10 Mg Tablet) 10 mg PO DAILY [facility]; Protocol Last Admin: 01/06/25 08:33 Dose: 10 mg Atorvastatin Calcium (Atorvastatin Calcium 20 Mg Tablet) 20 mg PO BEDTIME [facility] Last Admin: 01/06/25 20:56 Dose: 20 mg Clonazepam (Clonazepam 1 Mg Tablet) 1 mg PO BID [facility] Last Admin: 01/06/25 20:55 Dose: 1 mg Clonidine HCl (Clonidine Hcl 0.1 Mg Tablet) 0.1 mg PO DAILY PRN; Protocol PRN Reason: moderate anxiety Fluoxetine HCl (Fluoxetine Hcl 20 Mg Capsule) 80 mg PO DAILY [facility] Last Admin: 01/06/25 09:18 Dose: 80 mg Hydroxyzine HCl (Hydroxyzine Hcl 50 Mg Tablet) 50 mg PO BEDTIME [facility] Last Admin: 01/06/25 20:55 Dose: 50 mg Ibuprofen (Ibuprofen 400 Mg Tablet) 400 mg PO Q6H PRN PRN Reason: PAIN OR FEVER Lamotrigine (Lamotrigine 100 Mg Tablet) 100 mg PO BEDTIME [facility] Last Admin: 01/06/25 20:55 Dose: 100 mg Lamotrigine (Lamotrigine 25 Mg Tablet) 50 mg PO DAILY [facility] Last Admin: 01/06/25 08:32 Dose: 50 mg Magnesium Hydroxide (Milk Of Magnesia 30 Ml Oral.Susp) 30 ml PO DAILY PRN PRN Reason: Constipation Metformin HCl (Metformin Hcl Er 500 Mg Tab.Er.24h) 500 mg PO DAILY@1700 [facility] Last Admin: 01/06/25 16:51 Dose: 500 mg Naltrexone HCl (Naltrexone Hcl 50 Mg Tablet) 50 mg PO DAILY [facility] Last Admin: 01/06/25 08:32 Dose: 50 mg Nicotine (Nicotine 21 Mg Patch.Td24) 21 mg TRANSDERMA DAILY PRN PRN Reason: nicotine craving Nicotine Polacrilex (Nicotine Polacrilex 2 Mg Gum) 2 mg BUCCAL Q2H PRN PRN Reason: Nicotine Cravings Olanzapine (Olanzapine 10 Mg Tablet) 10 mg PO BEDTIME [facility] Last Admin: 01/06/25 20:55 Dose: 10 mg Olanzapine (Olanzapine 2.5 Mg Tablet) 2.5 mg PO Q4H PRN PRN Reason: mod-severe anxiety Propranolol HCl (Propranolol Hcl 10 Mg Tablet) 10 mg PO BID [facility]; Protocol Last Admin: 01/06/25 20:55 Dose: 10 mg Trazodone HCl (Trazodone Hcl 100 Mg Tablet) 100 mg PO BEDTIME [facility] Last Admin: 01/06/25 20:56 Dose: 100 mg Trazodone HCl (Trazodone Hcl 50 Mg Tablet) 50 mg PO BEDTIME MRX1 PRN PRN Reason: Insomnia Allergies Allergies Allergy/AdvReac Type Severity Reaction Status Date / Time mirtazapine (MIRTAZAPINE) Allergy Intermediate UNKNOWN Verified 01/02/25 14:42 sulfamethoxazole (From Allergy Unknown RASH Verified 01/02/25 14:42 BACTRIM) trimethoprim (From BACTRIM) Allergy Unknown RASH Verified 01/02/25 14:42 Assessment & Plan Assessment & Plan (1) JESSICA (generalized anxiety disorder): Status: Acute Code(s): F41.1 - Generalized anxiety disorder (2) MDD (major depressive disorder), recurrent episode, severe: Qualifiers: Psychotic features: without psychotic features Qualified Code(s): F33.2 - Major depressive disorder, recurrent severe without psychotic features Status: Acute Code(s): F33.2 - Major depressive disorder, recurrent severe without psychotic features (3) Panic disorder: Status: Acute Code(s): F41.0 - Panic disorder [episodic paroxysmal anxiety] (4) Obsessive compulsive disorder: Qualifiers: Obsessive-compulsive disorder type: unspecified Qualified Code(s): F 42.9 - Obsessive-compulsive disorder, unspecified Status: Acute Code(s): F42.9 - Obsessive-compulsive disorder, unspecified (5) Alcohol use disorder, severe, in early remission: Status: Acute Code(s): F10.21 - Alcohol dependence, in remission (6) Adjustment disorder with mixed disturbance of emotions and conduct in remission: Status: Acute Code(s): F43.25 - Adjustment disorder with mixed disturbance of emotions and conduct Plan HPI: Pt is a 44 yo male with hx of MDD, anxiety/panic attacks, JESSICA and alcohol abuse who presents for worsening anxiety and vague SI in face of adjusting to new [facility]. Pt has been sober for 34 days and just started at [facility] dual diagnosis living [facility]. Patient reports that he is overall doing well on current medication regimen which he takes daily. He moved to this new [facility] with which he was excited but also tentative, not knowing people, not yet having his new therapist or provider. Patient chronically struggles with anxious, self-deprecating thoughts and started having overwhelmed feelings, worrying what he be able to handle the program, feeling taunted by the task ahead of... He said over the next 3 days this anxiety swelled and he started making comments that he did not want to be alive... And so program sent him for evaluation in the ED. Patient denies any actual SI, plans or intention and says these comments were made in the heat of his overwhelming anxiety and just a part of his extended panic attack. Patient currently denies SI. Thinks is medications are mostly helpful but would like some adjustments. No drug or alcohol use; no AVH; no kristie Formulation/clinical reasoning: Patient's presentation seems to be an exacerbation of his JESSICA by struggling to adjust to new situation. Patient thinks if he had additional PRNs perhaps he could have prevented anxiety from becoming so overwhelming. Patient would like to remain on current medication regimen; his Lamictal was increased to 150 about a week ago and he agrees to have titration continued (used to be on 200 mg b.i.d.). Agrees to restart clonidine as a p.r.n. since he benefitted from it before; reviewed risks/side effects and patient did have some bradycardia in the past but thinks that this medication is tolerable and finds it helpful; also agrees to have Zyprexa p.r.n.; discussed risks/side effects of Zyprexa including metabolic syndrome and patient would like to get on metformin, having gained about 80 lb since he started Zyprexa. Patient wants to returned to [facility] -has been on Adderall in the past 01/04: Ordered respiratory virus panel. Otherwise continue current management and treatment plan. 01/05: continue current management and treatment plan. 01/06/25: Slept for 7.5 hours, was medication compliant, visible, attended groups, reports mild anxiety and depression rated a 2/10. Continued to improve in mood. No safety concerns. Mood is pretty good. He would like to return to [facility] program. Possible discharge by . Negative on Respiratory virus over weekends. Plan: CV Q 15 minute checks. Possible discharge this back to [facility] program. Continue home medications Continue Lamictal 50 mg daily and 100 mg q.h.s.; he does not want medication change. Start clonidine 0.1 mg as a p.r.n. Start Zyprexa 2.5 mg as a p.r.n. -reviewed labs with patient Patient educated on: diagnosis, medication risk/benefits and therapeutic strategies Informed Consent: understands Reason for continued inpatient stay Substantial Risk for: med/psych decompensation Time Spent With Patient Time: Total time managing care of this patient today ____ minutes.
[2025-01-07 08:00] VITALS: BP 138/92; PULSE 86; TEMP 36.1; O2SAT 98
[2025-01-07 08:37] VITALS: BP 138/92
--- NOTE | 2025-01-07 09:48 | P.PNPSI_ITS ---
Subjective Subjective Date of Service: 01/07/25 Reason For Visit: SI Interim History: met with patient; discussed with team; reviewed chart Patient reports that he is doing well and back to his regular self; sleeping and eating well feels ready to return. Discussed coping with intermittent anxiety and patient says that he will be able to open up to his new staff much more easily now. Patient feels medication regimen is helpful. Mental Status Exam Mental Status Exam Narrative: Pt is alert and oriented; behavior is cooperative, friendly and calm; patient is not in distress; dressed in hospital attire with unkempt hair, scruffy, tattooed arms and neck; adequate hygiene; mood is described as good and affect congruent; eye contact appropriate; Speech is normal rate, volume and prosody and not pressured; no psychomotor agitation/retardation present; thought process is organized and goal directed; Thought content is on tx; otherwise pertinent to relevant topics and without any delusional content, paranoid ideations or grandiosity; denies any SI/HI. Denies AVH and there is no evidence of perceptual disturbance. Patients insight and judgment appear intact. Diagnostics Vital Signs (24Hr): Vital Signs - 24 hr 01/06/25 20:00 01/06/25 20:55 01/07/25 08:37 Temperature 96.7 F L Pulse Rate 61 61 Respiratory Rate 16 Blood Pressure 121/71 121/71 138/92 H Pulse Oximetry 96 Oxygen Delivery Method Room Air BMI result Body Mass Index 35.7 Labs 01/02/25 15:44 01/03/25 08:06 Medications Medications Current Medications Acetaminophen (Acetaminophen 325 Mg Tablet) 650 mg PO Q6H PRN PRN Reason: Headache/Pain, Scale 1-10 Last Admin: 01/06/25 14:38 Dose: 650 mg Al Hydroxide/Mg Hydroxide (Magnesium Hydrox/Alum Hydrox 30 Ml Oral.Susp) 30 ml PO Q6H PRN PRN Reason: Heartburn/Nausea Albuterol Sulfate (Albuterol Sulfate 90 Mcg 8 Gm Inhaler) 2 puff INHALE Q4H PRN PRN Reason: Shortness of Breath Amlodipine Besylate (Amlodipine Besylate 10 Mg Tablet) 10 mg PO DAILY MARTINEZ; Protocol Last Admin: 01/07/25 08:37 Dose: 10 mg Atorvastatin Calcium (Atorvastatin Calcium 20 Mg Tablet) 20 mg PO BEDTIME MARTINEZ Last Admin: 01/06/25 20:56 Dose: 20 mg Clonazepam (Clonazepam 1 Mg Tablet) 1 mg PO BID [facility] Last Admin: 01/07/25 08:37 Dose: 1 mg Clonidine HCl (Clonidine Hcl 0.1 Mg Tablet) 0.1 mg PO DAILY PRN; Protocol PRN Reason: moderate anxiety Fluoxetine HCl (Fluoxetine Hcl 20 Mg Capsule) 80 mg PO DAILY [facility] Last Admin: 01/07/25 08:35 Dose: 80 mg Hydroxyzine HCl (Hydroxyzine Hcl 50 Mg Tablet) 50 mg PO BEDTIME [facility] Last Admin: 01/06/25 20:55 Dose: 50 mg Ibuprofen (Ibuprofen 400 Mg Tablet) 400 mg PO Q6H PRN PRN Reason: PAIN OR FEVER Lamotrigine (Lamotrigine 100 Mg Tablet) 100 mg PO BEDTIME [facility] Last Admin: 01/06/25 20:55 Dose: 100 mg Lamotrigine (Lamotrigine 25 Mg Tablet) 50 mg PO DAILY [facility] Last Admin: 01/07/25 08:39 Dose: 50 mg Magnesium Hydroxide (Milk Of Magnesia 30 Ml Oral.Susp) 30 ml PO DAILY PRN PRN Reason: Constipation Metformin HCl (Metformin Hcl Er 500 Mg Tab.Er.24h) 500 mg PO DAILY@1700 [facility] Last Admin: 01/06/25 16:51 Dose: 500 mg Naltrexone HCl (Naltrexone Hcl 50 Mg Tablet) 50 mg PO DAILY [facility] Last Admin: 01/07/25 08:37 Dose: 50 mg Nicotine (Nicotine 21 Mg Patch.Td24) 21 mg TRANSDERMA DAILY PRN PRN Reason: nicotine craving Nicotine Polacrilex (Nicotine Polacrilex 2 Mg Gum) 2 mg BUCCAL Q2H PRN PRN Reason: Nicotine Cravings Olanzapine (Olanzapine 10 Mg Tablet) 10 mg PO BEDTIME [facility] Last Admin: 01/06/25 20:55 Dose: 10 mg Olanzapine (Olanzapine 2.5 Mg Tablet) 2.5 mg PO Q4H PRN PRN Reason: mod-severe anxiety Propranolol HCl (Propranolol Hcl 10 Mg Tablet) 10 mg PO BID [facility]; Protocol Last Admin: 01/07/25 08:38 Dose: 10 mg Trazodone HCl (Trazodone Hcl 100 Mg Tablet) 100 mg PO BEDTIME [facility] Last Admin: 01/06/25 20:56 Dose: 100 mg Trazodone HCl (Trazodone Hcl 50 Mg Tablet) 50 mg PO BEDTIME MRX1 PRN PRN Reason: Insomnia Allergies Allergies Allergy/AdvReac Type Severity Reaction Status Date / Time mirtazapine (MIRTAZAPINE) Allergy Intermediate UNKNOWN Verified 01/02/25 14:42 sulfamethoxazole (From Allergy Unknown RASH Verified 01/02/25 14:42 BACTRIM) trimethoprim (From BACTRIM) Allergy Unknown RASH Verified 01/02/25 14:42 Assessment & Plan Assessment & Plan (1) JESSICA (generalized anxiety disorder): Status: Acute Code(s): F41.1 - Generalized anxiety disorder (2) MDD (major depressive disorder), recurrent episode, severe: Qualifiers: Psychotic features: without psychotic features Qualified Code(s): F33.2 - Major depressive disorder, recurrent severe without psychotic features Status: Acute Code(s): F33.2 - Major depressive disorder, recurrent severe without psychotic features (3) Panic disorder: Status: Acute Code(s): F41.0 - Panic disorder [episodic paroxysmal anxiety] (4) Obsessive compulsive disorder: Qualifiers: Obsessive-compulsive disorder type: unspecified Qualified Code(s): F 42.9 - Obsessive-compulsive disorder, unspecified Status: Acute Code(s): F42.9 - Obsessive-compulsive disorder, unspecified (5) Alcohol use disorder, severe, in early remission: Status: Acute Code(s): F10.21 - Alcohol dependence, in remission (6) Adjustment disorder with mixed disturbance of emotions and conduct in remission: Status: Acute Code(s): F43.25 - Adjustment disorder with mixed disturbance of emotions and conduct Plan HPI: Pt is a 44 yo male with hx of MDD, anxiety/panic attacks, JESSICA and alcohol abuse who presents for worsening anxiety and vague SI in face of adjusting to new correction. Pt has been sober for 34 days and just started at [facility] dual diagnosis living correction. Patient reports that he is overall doing well on current medication regimen which he takes daily. He moved to this new correction with which he was excited but also tentative, not knowing people, not yet having his new therapist or provider. Patient chronically struggles with anxious, self-deprecating thoughts and started having overwhelmed feelings, worrying what he be able to handle the program, feeling taunted by the task ahead of... He said over the next 3 days this anxiety swelled and he started making comments that he did not want to be alive... And so program sent him for evaluation in the ED. Patient denies any actual SI, plans or intention and says these comments were made in the heat of his overwhelming anxiety and just a part of his extended panic attack. Patient currently denies SI. Thinks is medications are mostly helpful but would like some adjustments. No drug or alcohol use; no AVH; no kristie Formulation/clinical reasoning: Patient's presentation seems to be an exacerbation of his JESSICA by struggling to adjust to new situation. Patient thinks if he had additional PRNs perhaps he could have prevented anxiety from becoming so overwhelming. Patient would like to remain on current medication regimen; his Lamictal was increased to 150 about a week ago and he agrees to have titration continued (used to be on 200 mg b.i.d.). Agrees to restart clonidine as a p.r.n. since he benefitted from it before; reviewed risks/side effects and patient did have some bradycardia in the past but thinks that this medication is tolerable and finds it helpful; also agrees to have Zyprexa p.r.n.; discussed risks/side effects of Zyprexa including metabolic syndrome and patient would like to get on metformin, having gained about 80 lb since he started Zyprexa. Patient wants to returned to [facility] -has been on Adderall in the past 01/04: Ordered respiratory virus panel. Otherwise continue current management and treatment plan. 01/05: continue current management and treatment plan. 01/06/25: Slept for 7.5 hours, was medication compliant, visible, attended groups, reports mild anxiety and depression rated a 2/10. Continued to improve in mood. No safety concerns. Mood is pretty good. He would like to return to [facility] program. Possible discharge by . Negative on Respiratory virus over weekends. 01/07 Patient reports that he is doing well and back to his regular self; sleeping and eating well feels ready to return. Discussed coping with intermittent anxiety and patient says that he will be able to open up to his new staff much more easily now. Patient feels medication regimen is helpful. As discussed will likely increase Lamictal -patient is at baseline, optimistic, future oriented and he is not in imminent risk for harm to self or others. Patient is ready to return back to sober correction and continue treatment as an outpatient. Plan: CV Q 15 minute checks. Possible discharge this back to [facility] program. Continue home medications Continue Lamictal 50 mg daily and 100 mg q.h.s.; he does not want medication change. Start clonidine 0.1 mg as a p.r.n. Start Zyprexa 2.5 mg as a p.r.n. -reviewed labs with patient Patient educated on: diagnosis, medication risk/benefits and therapeutic strategies Informed Consent: understands Reason for continued inpatient stay Substantial Risk for: stable for discharge Time Spent With Patient Time: Total time managing care of this patient today ____ minutes.
[2025-01-07 19:33] VITALS: BP 119/68; PULSE 63; RESP 16; TEMP 36.8; O2SAT 96
[2025-01-08 08:00] VITALS: BP 134/86; PULSE 77; TEMP 36.1; O2SAT 96
--- NOTE | 2025-01-08 09:23 | P.DS_ITS ---
DS: Providers Provider Date of Service: 01/29/25 Date of admission: 01/02/25 20:45 Date of discharge: 01/08/25 Primary care physician: Unknown Physician Attending physician on admission: Ken Bonilla Attending physician on discharge: Ken Bonilla DS: Diagnosis Discharge Diagnosis (1) JESSICA (generalized anxiety disorder): Status: Acute (2) MDD (major depressive disorder), recurrent episode, severe: Status: Acute (3) Panic disorder: Status: Acute (4) Obsessive compulsive disorder: Status: Acute (5) Alcohol use disorder, severe, in early remission: Status: Acute (6) Adjustment disorder with mixed disturbance of emotions and conduct in remission: Status: Acute DS: Medications Discharge Medications Home Medications: Home Medications ?Medication ?Instructions ?Recorded ?Confirmed clonazepam 1 mg tablet 1 mg PO BID 06/29/23 5 propranolol 10 mg tablet 10 mg PO BID 06/29/23 atorvastatin 20 mg tablet 20 mg PO BEDTIME cholesterol 03/01/24 01/02/25 fluoxetine 40 mg capsule 80 mg PO DAILY 03/01/2412/20 amlodipine 10 mg tablet 10 mg PO DAILY blood pressur e 09/06/24 01/02/25 lamotrigine 25 mg tablet 50 mg PO DAILY 09/06/2412/20 acetaminophen 325 mg tablet 650 mg PO Q4-6H PRN PAIN O R FEVER 01/02/25 01/02/25 albuterol sulfate 90 mcg/actuation 2 puff inhalation Q 4H PRN 01/02/25 01/02/25 aerosol inhaler Shortness Of Breath aluminum-mag hydroxide-simethicone 20 ml PO Q4-6H PRN Stomach Upset 01/02/25 01/02/25 200 mg-200 mg-20 mg/5 mL oral susp guaifenesin 200 mg/5 mL oral liquid 200 - 400 mg PO Q4 H PRN Cough 01/02/25 01/02/25 hydroxyzine pamoate 50 mg capsule 50 mg PO BEDTIME 12/2001/02/25 ibuprofen 400 mg tablet 400 mg PO Q6H PRN PAIN OR FE BRY 01/02/25 01/02/25 lamotrigine 100 mg tablet 100 mg PO BEDTIME 01/02/25 0 01/02/25 magnesium hydroxide 400 mg/5 mL 2,400 mg PO DAILY PRN Constipation 01/02/25 01/02/25 oral suspension (Milk of Magnesia) naloxone 4 mg/actuation nasal 4 mg intranasal Q2M PRN Opioid 01/02/25 01/02/25 spray (Narcan) Overdose naltrexone 50 mg tablet 50 mg PO DAILY 01/02/2512/20 trazodone 100 mg tablet 100 mg PO BEDTIME 01/02/25 0 01/02/25 Previous Rx's ?Medication ?Instructions ?Recorded olanzapine 10 mg tablet 10 mg PO BEDTIME 30 days #30 tabs 04/12/23 clonidine HCl 0.1 mg tablet 0.1 mg PO DAILY PRN modera te 01/08/25 anxiety 30 days #30 tabs metformin 500 mg tablet,extended 500 mg PO DAILY@1700 30 days #30 01/08/25 release 24 hr tabs olanzapine 2.5 mg tablet 2.5 mg PO TID PRN mod-severe 01/08/25 anxiety 30 days #60 tabs Mental Status Exam Mental Status Exam Narrative: Pt is alert and oriented; behavior is cooperative, friendly and calm; patient is not in distress; dressed in hospital attire with unkempt hair, scruffy, tattooed arms and neck; adequate hygiene; mood is described as good and affect congruent; eye contact appropriate; Speech is normal rate, volume and prosody and not pressured; no psychomotor agitation/retardation present; thought process is organized and goal directed; Thought content is on tx; otherwise pertinent to relevant topics and without any delusional content, paranoid ideations or grandiosity; denies any SI/HI. Denies AVH and there is no evidence of perceptual disturbance. Patients insight and judgment are intact. Data Data Completed and Pending Completed studies during hospitalization [Text1]: 01/02/25 01/02/25 01/02/25 14:59 15:44 17:02 WBC 7.4 RBC 4.94 Hgb 13.9 L Hct 43.0 MCV 87.0 MCH 28.1 MCHC 32.3 RDW 13.4 Plt Count 192 MPV 10.0 Absolute Nucleated RBC 0.000 Nucleated RBC % (auto) 0.0 Sodium 140 Potassium 4.0 Chloride 106 Carbon Dioxide 28 Anion Gap 10 L BUN 10 Creatinine 1.03 Estim Creat Clear Calc 123.3 Estimated GFR > 60 Random Glucose 85 Estimat Average Glucose Hemoglobin A1c % Calcium 9.8 Total Bilirubin 0.4 Direct Bilirubin 0.2 AST 18 ALT 19 Alkaline Phosphatase 71 Total Protein 7.1 Albumin 4.7 Triglycerides Cholesterol LDL Cholesterol, Calc HDL Cholesterol TSH Free T4 Urine Color TNP Urine Appearance TNP Urine pH TNP Ur Specific [place] TNP Urine Protein TNP Urine Glucose (UA) TNP Urine Ketones TNP Urine Blood TNP Urine Nitrite TNP Ur Leukocyte Esterase TNP Salicylates < 5.0 L Urine Opiates Screen TNP Ur Buprenorphine Scrn TNP Ur Oxycodone Screen TNP Urine Methadone Screen TNP Urine Fentanyl Screen TNP Acetaminophen < 3 Ur Barbiturates Screen TNP Ur Phencyclidine Scrn TNP Ur Amphetamines Screen TNP U Benzodiazepines Scrn TNP Urine Cocaine Screen TNP U Marijuana (THC) Screen TNP Ethyl Alcohol < 10 Influenza Type A (PCR) Influenza Type B (PCR) RSV RNA Qual (PCR) SARS-CoV-2 RNA (RT-PCR) 01/02/25 01/03/25 01/04/25 17:03 08:06 11:14 WBC RBC Hgb Hct MCV MCH MCHC RDW Plt Count MPV Absolute Nucleated RBC Nucleated RBC % (auto) Sodium 143 Potassium 4.2 Chloride 106 Carbon Dioxide 28 Anion Gap 13 BUN 9 Creatinine 0.98 Estim Creat Clear Calc 129.6 Estimated GFR > 60 Random Glucose 97 Estimat Average Glucose 97 Hemoglobin A1c % 5.0 Calcium 9.8 Total Bilirubin 0.5 Direct Bilirubin AST 23 ALT 23 Alkaline Phosphatase 92 Total Protein 7.9 Albumin 5.1 H Triglycerides 127 Cholesterol 150 LDL Cholesterol, Calc 88 HDL Cholesterol 37 L TSH 1.25 Free T4 1.02 Urine Color Yellow Urine Appearance Clear Urine pH 6.5 Ur Specific [place] 1.010 Urine Protein Negative Urine Glucose (UA) Negative Urine Ketones Negative Urine Blood Negative Urine Nitrite Negative Ur Leukocyte Esterase Negative Salicylates Urine Opiates Screen Not Detected Ur Buprenorphine Scrn Not Detected Ur Oxycodone Screen Not Detected Urine Methadone Screen Not Detected Urine Fentanyl Screen Not Detected Acetaminophen Ur Barbiturates Screen Not Detected Ur Phencyclidine Scrn Not Detected Ur Amphetamines Screen Not Detected U Benzodiazepines Scrn Not Detected Urine Cocaine Screen Not Detected U Marijuana (THC) Screen Not Detected Ethyl Alcohol Influenza Type A (PCR) NEGATIVE Influenza Type B (PCR) NEGATIVE RSV RNA Qual (PCR) NEGATIVE SARS-CoV-2 RNA (RT-PCR) NEGATIVE DS: Summary Hospital Course Hospital Course: HPI: Pt is a 44 yo male with hx of MDD, anxiety/panic attacks, JESSICA and alcohol abuse who presents for worsening anxiety and vague SI in face of adjusting to new assisted/ [facility] program. Pt has been sober for 34 days and just started at new [facility] dual diagnosis living assisted. Patient reports that he is overall doing well on current medication regimen which he takes daily. He moved to this new assisted with which he was excited but also tentative, not knowing people, not yet having his new therapist or provider. Patient chronically struggles with anxious, self-deprecating thoughts and started having overwhelmed feelings, worrying what he be able to handle the program, feeling taunted by the task ahead of... He said over the next 3 days this anxiety swelled and he started making comments that he did not want to be alive... And so program sent him for evaluation in the ED. Patient denies any actual SI, plans or intention and says these comments were made in the heat of his overwhelming anxiety and just a part of his extended panic attack. Patient currently denies SI. Thinks is medications are mostly helpful but would like some adjustments. No drug or alcohol use; no AVH; no kristie Hospital course/ Formulation/clinical reasoning: Patient anxious but doing better by the time he came to the unit; no SI at all. Discussed medication regimen which he thinks is overall helpful and will become increasingly so as Lamictal gets titrated back to home dose; patient agreed to add p.r.n. of Zyprexa and clonidine which he feels would have been helpful in calming him down had he had it available. Patient felt like he just needed a few days to stabilize and would be able to return to the assisted. Patient's presentation seems to be an exacerbation of his JESSICA by struggling to adjust to new situation. Patient thinks if he had additional PRNs perhaps he could have prevented anxiety from becoming so overwhelming. Patient would like to remain on current medication regimen; his Lamictal was increased to 150 about a week ago and he agrees to have titration continued (used to be on 200 mg b.i.d.). As mentioned, patient Agrees to restart clonidine as a p.r.n. since he benefitted from it before; reviewed risks/side effects and patient did have some bradycardia in the past but thinks that this medication is tolerable and finds it helpful; also agrees to have Zyprexa p.r.n.; discussed risks/side effects of Zyprexa including metabolic syndrome (abdominal obesity, hypertension, elevated cholesterol) and patient would like to get on metformin (risks/side effects discussed), having gained about 80 lb since he started Zyprexa. Patient wants to returned to [facility] -has been on Adderall in the past Patient remained in good behavioral and impulse control throughout his time in the unit. He remained future oriented and optimistic about staying sober and returning to his sober living environment ( [facility]) where he feels supported. Patient attended groups, was appropriate with peers and staff and engaged in treatment. He was sleeping and eating well well. Patient feels that should he get overly anxious again he will be able to reach out to staff and talk now that he knows his staff better. Patient returned to baseline. He was not in imminent risk for harm to self or others and his request for discharge honored. 01/06/25: Slept for 7.5 hours, was medication compliant, visible, attended gr oups, reports mild anxiety and depression rated a 2/10. Continued to improve in mood. No safety concerns. Mood is pretty good. He would [facility] to [facility]. Possible discharge by . Negative on Respiratory virus over weekends. 01/07 Patient reports that he is doing well and back to his regular self; sleeping and eating well feels ready to return. Discussed coping with i ntermittent anxiety and patient says that he will be able to open up to his new staff much more easily now. Patient feels medication regimen is helpful. As discussed will likely increase Lamictal -patient is at baseline, optimistic, future oriented and he is not in imminent risk for harm to self or others. Patient is ready to return back to sober assisted and continue treatment as an outpatient. Medications: Started metformin for metabolic syndrome Added clonidine and Zyprexa PRNs Time spent discussing smoking cessation with patient: 3 to 10 minutes Status at Discharge Functional status at discharge: independent ambulation Overall status at discharge: patient is back to baseline Time Spent with Patient Time attestation: Total time managing care of this patient today __40__ minutes. Time spent: Greater than 30 minutes Specific discharge activities: met with patient; discussed with team; scripts; charting Discharge Plan Discharge Anticipated Discharge Date/Time: 01/08/25 11:30 Patient Disposition: Home, Self-Care Discharge Diagnosis: JESSICA; adjustment disorder with mixed emotion/behavior in full remission Referrals: Physician,Unknown J [Primary Care Provider, Medical] - 1 Week Discharge Medications: New olanzapine 2.5 mg Tablet 2.5 mg PO TID PRN (Reason: mod-severe anxiety) 30 Days Qty: 60 0RF metformin 500 mg Tablet Extended Release 24 Hr 500 mg PO DAILY@1700 30 Days Qty: 30 0RF clonidine HCl 0.1 mg Tablet 0.1 mg PO DAILY PRN (Reason: moderate anxiety) 30 Days Qty: 30 0RF Protocol: Hold for SBP< HOLD for SBP < : 90 Continued olanzapine 10 mg tablet 10 mg PO BEDTIME 30 Days Qty: 30 1RF propranolol 10 mg tablet 10 mg PO BID clonazepam 1 mg tablet 1 mg PO BID fluoxetine 40 mg capsule 80 mg PO DAILY atorvastatin 20 mg tablet 20 mg PO BEDTIME amlodipine 10 mg tablet 10 mg PO DAILY lamotrigine 25 mg tablet 50 mg PO DAILY naltrexone 50 mg tablet 50 mg PO DAILY trazodone 100 mg tablet 100 mg PO BEDTIME lamotrigine 100 mg tablet 100 mg PO BEDTIME guaifenesin 200 mg/5 mL Liquid 200 - 400 mg PO Q4H PRN (Reason: Cough) acetaminophen 325 mg Tablet 650 mg PO Q4-6H PRN (Reason: PAIN OR FEVER) hydroxyzine pamoate 50 mg Capsule 50 mg PO BEDTIME magnesium hydroxide [Milk of Magnesia] 400 mg/5 mL Suspension 2,400 mg PO DAILY PRN (Reason: Constipation) ibuprofen 400 mg Tablet 400 mg PO Q6H PRN (Reason: PAIN OR FEVER) alum-mag hydroxide-simeth 200-200-20 mg/5 mL Suspension 20 ml PO Q4-6H PRN (Reason: Stomach Upset) Rx Instructions: administer between meals and at bedtime albuterol sulfate 90 mcg/actuation Hfa Aerosol Inhaler 2 puff INHALATION Q4H PRN (Reason: Shortness Of Breath) naloxone [Narcan] 4 mg/actuation Castella,Non-Aerosol 4 mg INTRANASAL Q2M PRN (Reason: Opioid Overdose) Rx Instructions: spray 1 dose into ONE nostril; alternate nostrils w each dose until help arrives Discharge Orders: Discharge Order (Routine); Ordered 01/08/25 Ordered By: Ken Bonilla Diet: Regular diet Activity on Discharge: As tolerated Stand Alone Forms: Patient Portal Discharge page Print Language: Greenlandic Care Plan Goals: Maintain mood and safe behaviors Take medications as prescribed Continue to pursue sobriety Practice coping skills Continue with outpatient providers and reach out to them as needed Health Concerns: Mood stability and behaviors Sobriety Attention Elevated cholesterol Plan of Treatment: Follow up with your PCP, psychiatric provider and other outpatient providers regarding above concerns Take medications as prescribed Assessment: Risk assessment at time of discharge:? Patient was interviewed prior to discharge and found to be fully oriented and without any SI or HI. Patient has improved insight and judgment and wants to continue treatment. Patient is not in imminent risk of harm to self or others and has a safety plan that includes presenting to the closest ER or calling 911 if feeling unsafe.? Patient has been observed closely by nursing and unit staff throughout admission; patient has not engaged in any behaviors that suggest dangerousness to self or others and has demonstrated appropriate behaviors and impulse control
== END 2025-01-08 11:11 | disposition home or self-care (01) | DRG 882 ==
LOC: HO.ED 17:46 → HO.PM5 22:05
PROVIDERS: Physician Assistant Medical; Psychiatry & Neurology Psychiatry; Admitting Provider Nurse Practitioner Psychiatric/Mental Health; Emergency Provider Emergency Medicine; Visit Provider Nurse Practitioner Psychiatric/Mental Health
DX: F43.25 Adjustment disorder with mixed disturbance of emotions and conduct (principal); R45.851 Suicidal ideations; F33.2 Major depressive disorder, recurrent severe without psychotic features; F41.1 Generalized anxiety disorder; F10.21 Alcohol dependence, in remission; F42.9 Obsessive-compulsive disorder, unspecified; F17.210 Nicotine dependence, cigarettes, uncomplicated; Z20.822 Contact with and (suspected) exposure to COVID-19; Z71.6 Tobacco abuse counseling; Z79.84 Long term (current) use of oral hypoglycemic drugs; Z79.899 Other long term (current) drug therapy
CPT/HCPCS: 36415; 80048; 80053; 80061; 80076; 80143; 80179; 80307; 81003; 83036; 84439; 84443; 85027; 87637; 94660; 99285; S9485

== ENCOUNTER → 2025-01-02 20:45 | Outpatient (BNV) | payer MEDICARE, MEDICAID, SELFPAY | PROVIDERS: Admitting Provider Nurse Practitioner Psychiatric/Mental Health; Emergency Provider Emergency Medicine; Visit Provider Psychiatry & Neurology Psychiatry | DX: F33.2 Major depressive disorder, recurrent severe without psychotic features (principal); F41.1 Generalized anxiety disorder; F41.0 Panic disorder [episodic paroxysmal anxiety]; F42.9 Obsessive-compulsive disorder, unspecified; F10.21 Alcohol dependence, in remission; F43.25 Adjustment disorder with mixed disturbance of emotions and conduct | CPT/HCPCS: 90792 ==

== ENCOUNTER 2025-05-04 11:25 | Inpatient (IN) | payer MEDICARE, MEDICAID, SELFPAY ==
[2025-05-04 11:31] VITALS: BP 145/72; PULSE 84; RESP 18; TEMP 36.6; O2SAT 98; BMI 36.6
--- NOTE | 2025-05-04 11:31 | ED.PSYCH ---
HPI - Psych General Chief Complaint: Psychiatric Symptoms Stated Complaint: SI Time Seen by Provider: 05/04/25 12:06 Source: patient, RN notes reviewed and old records reviewed Mode of arrival: ambulatory Limitations: no limitations History of Present Illness ED Provider: Lenora HPI Narrative: Patient is a 44-year-old male with history of alcohol use disorder, Bipolar 1 disorder, MDD, panic disorder, generalized anxiety disorder presenting to the emergency department with depression and suicidal ideation. States that he was recently inpatient at [place], has been sober from alcohol for the past 5 months but drank alcohol this morning. Denies history of withdrawal seizures. States his plan would be to overdose. Denies HI, AH, VH. Denies any current physical omplaints. MD complaint: suicidal ideation, feels depressed and alcohol abuse Related Data Home Medications ?Medication ?Instructions ?Recorded ?Confirmed clonazepam 1 mg tablet 1 mg PO BID PRN Anxiety 06/29/23 05/05/25 atorvastatin 20 mg tablet 20 mg PO BEDTIME cholesterol 03/01/24 05/05/25 amlodipine 10 mg tablet 10 mg PO DAILY blood pressure 09/06/24 05/05/25 lamotrigine 25 mg tablet 25 mg PO DAILY 09/06/24 05/05/25 albuterol sulfate 90 mcg/actuation 2 puff inhalation Q4H PRN 01/02/25 05/05/25 aerosol inhaler Shortness Of Breath hydroxyzine pamoate 50 mg capsule 50 mg PO TID PRN Anxiety 01/02/25 05/05/25 fluoxetine 10 mg capsule 10 mg PO DAILY 05/05/25 05/05/25 melatonin 5 mg tablet 5 mg PO BEDTIME 05/05/25 05/05/25 propranolol 20 mg tablet 20 mg PO BID 05/05/25 05/05/25 trazodone 50 mg tablet 50 mg PO BEDTIME PRN insomnia 05/05/25 05/05/25 Previous Rx's ?Medication ?Instructions ?Recorded olanzapine 10 mg tablet 10 mg PO BEDTIME 30 days #30 tabs 04/12/23 Allergies Allergy/AdvReac Type Severity Reaction Status Date / Time mirtazapine (MIRTAZAPINE) Allergy Intermediate UNKNOWN Verified 05/04/25 11:34 sulfamethoxazole (From Allergy Unknown RASH Verified 05/04/25 11:34 BACTRIM) trimethoprim (From BACTRIM) Allergy Unknown RASH Verified 05/04/25 11:34 Review of Systems Review of Systems: As per HPI Yes all other systems are reviewed and are negative Constitutional: Constitutional: Reports as per HPI [facility] Past Medical History Medical History (Updated 05/04/25 @ 15:06 by Jo Cooley NP) Adjustment disorder with mixed disturbance of emotions and conduct in remission JESSICA (generalized anxiety disorder) Alcohol abuse Sleep apnea MDD (major depressive disorder), recurrent episode, severe Alcohol use disorder, mild, in controlled environment, abuse Transaminitis Tachycardia HTN (hypertension) Social History Social History Household Members: None Household Members Other:: Patient reports lives in a longterm with 15 other persons has own room Housing: Homeless Do you presently have visiting nurse or other home services: No Alcohol intake: current Alcohol intake frequency: 3 or more drinks per day Alcohol type: hard liquor Patient Tobacco Use Status: Current everyday Tobacco user Tobacco use type: Cigarette Cigarette Packs Per Day: 0.5 Cigarettes Per Day: 10.0 Years Smoked: 28 Smoked in Last 30 Days: Yes e-Cigarette/Vaping Use: Currently Using Frequency of e-Cigarette/Vaping Use: daily Patient Interested in Nicotine Replacement: Yes Patient Given Instructions on How to Stop Smoking: No Second Hand Smoke Exposure: No Use of substances other than those prescribed or required for medical reasons: No Have you been hit, kicked, punched, or otherwise hurt by someone within the past year? If so, by whom?: No Do you feel safe in your current relationship?: No Current Relationship Is there a partner from a previous relationship who is making you feel unsafe now?: No Are you made to feel afraid or neglected: No Advance Directives: No Advance Directives Information Provided: No Do you have a plan to hurt others: No Plan Recently lost weight without trying: No Eating poorly because of decreased appetite: No Nutrition Risks: No Nutritional Risk Poor oral hygiene: No service: No Sexual orientation: Decline to Answer Physical Exam Vital Signs: Vital Signs: Last Vital Signs Temp 98.3 F 05/05/25 20:00 Pulse 96 05/05/25 20:19 Resp 20 05/05/25 20:00 BP 121/74 05/05/25 20:19 Pulse Ox 96 05/05/25 20:00 O2 Del Method Room Air 05/05/25 20:00 BMI result Body Mass Index 36.6 Vital signs have been reviewed and appear to be correct. Blood pressure normal. Heart rate normal. Respiratory rate normal. Temperature normal. Oxygen saturation normal. Const: General: cooperative, healthy appearing and no acute distress Orientation/consciousness: oriented to person, oriented to place, oriented to time and patient oriented x3 Limitations: no limitations HEENT: Head: Yes normocephalic and Yes atraumatic Ears: external ears normal General nose exam: Normal external nose present Face and sinus: Yes face symmetric Mouth: oropharynx normal and moist mucous membranes Throat: Yes uvula midline Eyes: Pupils: Equal, round and reactive pupils present Neck: Neck: Yes normal visual inspection and Yes supple Resp: Effort & Inspection: normal respiratory effort and able to speak in complete sentences Auscultation: clear to auscultation bilaterally Cardio: Rate: regular rate Rhythm: regular rhythm Heart sounds: S1 normal heart sound present and S2 normal heart sound present GI: Palpation (GI): Soft to palpation and nontender Auscultation: normoactive bowel sounds : General: Yes no CVA tenderness Back/Spine/Pelvis: Back: no CVA tenderness Skin: General skin exam: elasticity normal and turgor normal Neuro: General: oriented to person, oriented to place, oriented to time, patient oriented x3, moves all extremities, no focal motor deficits and CN's II-XI intact bilaterally Cranial nerves: Yes Equal, round and reactive pupils present Cognition (Neuro): normal cognition Extrem: General: Yes full ROM, Yes no pedal edema and Yes no calf tenderness Psych: Mental Status: mental status grossly normal Affect: Sad affect present (sobbing during exam) Attitude: cooperative Thought process: Normal thought process present Thought content: Suicidality present, no homicidality, no hallucinations and Depressive thoughts present Insight: Fair insight present (Psych) Judgement: Fair judgement present (Psych) Course Course Course Narrative: This is a Rapid Medical Exam performed in triage by Suad Morris PA-C. Full HPI, ROS and PE to be performed by primary ED provider. 44 yo M w/pmhx JESSICA, sleep apnea, HTN, MDD, ETOH use d/o presenting to the ED c/o +SI with plan to take whole bottle of Klonopin. Admits he was just d/c'd from [place] last week. Admits to taking two 1mg Klonopin & drinking ETOH. Admits he was 5 months sober until today. PE: tearful, anxious Plan: Labs, COLBERT, CARE team consult Time: 05:51 Date: 05/05/25 Provider: Faye Chavez, DO Patient in physician observation for psychiatric evaluation.? No acute events reported overnight. No current complaints. VS stable.? Patient is in bed search status/pending CARE team evaluation. Will continue to monitor. Medications Administered Generic Name Dose Route Start Last Admin Trade Name Freq PRN Reason Stop Dose Admin Amlodipine Besylate 10 mg 05/05/25 09:00 05/05/25 09:21 Amlodipine Besylate 10 Mg Tablet PO 10 mg DAILY MARTINEZ Administration Protocol Atorvastatin Calcium 20 mg 05/05/25 21:00 05/05/25 20:19 Atorvastatin Calcium 20 Mg Tablet PO 20 mg BEDTIME MARTINEZ Administration Clonazepam 1 mg 05/05/25 06:19 05/05/25 20:22 Clonazepam 1 Mg Tablet PO 1 mg BID PRN Administration Anxiety Fluoxetine HCl 10 mg 05/05/25 09:00 05/05/25 09:20 Fluoxetine Hcl 10 Mg Capsule PO 10 mg DAILY MARTINEZ Administration Hydroxyzine HCl 50 mg 05/05/25 09:00 05/05/25 20:18 Hydroxyzine Hcl 50 Mg Tablet PO 50 mg TID MARTINEZ Administration Lamotrigine 25 mg 05/06/25 09:00 05/05/25 09:20 Lamotrigine 25 Mg Tablet PO 25 mg DAILY MARTINEZ Administration Melatonin 6 mg 05/05/25 21:00 05/05/25 20:18 Melatonin 3 Mg Tablet PO 6 mg BEDTIME MARTINEZ Administration Olanzapine 10 mg 05/05/25 06:30 05/05/25 20:18 Olanzapine 10 Mg Tablet PO 10 mg BEDTIME MARTINEZ Administration Propranolol HCl 20 mg 05/05/25 09:00 05/05/25 20:19 Propranolol Hcl 20 Mg Tablet PO 20 mg BID MARTINEZ Administration Protocol Trazodone HCl 50 mg 05/05/25 06:19 05/05/25 20:22 Trazodone Hcl 50 Mg Tablet PO 50 mg BEDTIME PRN Administration Insomnia Discontinued Medications Generic Name Dose Route Start Last Admin Trade Name Freq PRN Reason Stop Dose Admin Clonazepam 1 mg 05/04/25 17:11 05/04/25 17:15 Clonazepam 1 Mg Tablet PO 05/04/25 17:12 1 mg ONCE ONE Administration Hydroxyzine HCl 25 mg 05/04/25 17:01 05/04/25 20:13 Hydroxyzine Hcl 25 Mg Tablet PO 05/04/25 17:02 Not Given ONCE ONE Lamotrigine 50 mg 05/05/25 09:00 05/05/25 09:20 Lamotrigine 25 Mg Tablet PO Not Given DAILY [facility] Medical Decision Making Medical Decision Making [facility] Narrative: Patient is a 44-year-old male with history of alcohol use disorder, Bipolar 1 disorder, MDD, panic disorder, generalized anxiety disorder presenting to the emergency department with depression and suicidal ideation. On exam patient is awake, A+Ox3, VS WNL, afebrile, normal neurological exam without focal deficits, physical exam findings as above. Given reported symptoms and physical exam findings, initial differential includes but is not limited to depression, suicidal ideation, alcohol or drug intoxication or withdrawal. Labs unremarkable. UA is without evidence of infection. Urine drug screen positive for opiates, ethanol 122. Per care team, patient will be inpatient level of care bed search. Differential Diagnosis Differential Diagnoses: The differential diagnosis associated with the presentation includes as per [facility] Admission/Observation Consideration of admission/observation: Escalation of care including admission/observation considered Consult Healthcare Provider Management of the patient was discussed with: Behavioral Health Provider Lab Data [facility] Lab Attestation statement: I reviewed the patient's lab results. as per [facility] 05/04/25 12:20 05/04/25 12:20 Labs: Lab Results 05/04/25 05/04/25 Range/Units 12:20 12:43 WBC 7.9 (4.8-10.8) X10*3/uL RBC 4.95 (4.60-5.80) X10*6/uL Hgb 14.0 (14.0-18.0) g/dl Hct 41.1 L (42.0-52.0) % MCV 83.0 (80.0-98.0) fL MCH 28.3 (27.0-33.0) pg MCHC 34.1 (31.0-36.0) g/dl RDW 12.5 (11.0-16.0) % Plt Count 209 (160-400) X10*3/uL MPV 9.3 L (9.4-12.4) fL Immature Gran % (Auto) 0.3 (0.0-0.4) % Neut % (Auto) 71.2 (45-73) % Lymph % (Auto) 19.3 L (20-40) % [place] % (Auto) 6.7 (2-11) % Eos % (Auto) 1.9 (0-4) % Baso % (Auto) 0.6 (0-2) % Lymph # (Auto) 1.5 (1.2-4.9) X10*3/uL [place] # (Auto) 0.5 (0.1-1.2) X10*3/uL Eos # (Auto) 0.2 (0.0-0.4) X10*3/uL Baso # (Auto) 0.1 (0.0-0.2) X10*3/uL Abs Immat Gran (auto) 0.02 (0.00-0.03) X10*3/uL Absolute Neuts (auto) 5.6 (2.0-8.3) x10*3/uL Absolute Nucleated RBC 0.000 (0.0-0.012) X10*3/uL Nucleated RBC % (auto) 0.0 (0.0-0.2) /100WBC Sodium 141 (135-145) mmol/L Potassium 3.7 (3.3-5.1) mmol/L Chloride 108 (96-108) mmol/L Carbon Dioxide 25 (22-29) mmol/L Anion Gap 12 (12-20) BUN 10 (9-16) mg/dL Creatinine 0.90 (0.5-1.4) mg/dL Estim Creat Clear Calc 143.0 Estimated GFR > 60 Random Glucose 123 H (60-115) mg/dL Calcium 9.5 (8.4-10.2) mg/dL Magnesium 2.1 (1.6-2.6) mg/dL Total Bilirubin 0.7 (0.0-1.0) mg/dL Direct Bilirubin 0.2 (0.0-0.5) mg/dL AST 22 (5-37) U/L ALT 31 (0-40) U/L Alkaline Phosphatase 70 (39-117) U/L Total Protein 7.3 (6.5-8.0) g/dL Albumin 4.8 (3.5-5.0) g/dL Urine Color Yellow Urine Appearance Cloudy Urine pH 8.0 (5.0-9.0) Ur Specific [place] <= 1.005 (1.005-1.025) Urine Protein Negative (Neg-Trace) mg/dL Urine Glucose (UA) Negative (Negative) mg/dL Urine Ketones Negative (Negative) mg/dL Urine Blood Negative (Negative) Urine Nitrite Negative (Negative) Ur Leukocyte Esterase Negative (Negative) Salicylates < 5.0 L (15-30) mg/dL Urine Opiates Screen POSITIVE H (Not Detect) Ur Buprenorphine Scrn Not Detected (Not Detect) ng/mL Ur Oxycodone Screen Not Detected (Not Detect) ng/mL Urine Methadone Screen Not Detected (Not Detect) ng/mL Urine Fentanyl Screen Not Detected (Not Detect) Acetaminophen < 3 (<30) mcg/mL Ur Barbiturates Screen Not Detected (Not Detect) Ur Phencyclidine Scrn Not Detected (Not Detect) Ur Amphetamines Screen Not Detected (Not Detect) U Benzodiazepines Scrn Not Detected (Not Detect) Urine Cocaine Screen Not Detected (Not Detect) U Marijuana (THC) Screen Not Detected (Not Detect) Ethyl Alcohol 122 mg/dL External Record Review External record reviewed: Inpatient record, Office record and Outpatient record Discharge Plan Discharge Clinical Impression: Suicidal ideation, Alcohol intoxication Depression Qualifiers: Depression Type: unspecified Qualified Code(s): F32.A - Depression, unspecified Patient Disposition: Admitted As Inpatient Interventions: Admission Worksheet (ED) Last Done: 05/05/25 14:21 Discharge Date/Time: 05/05/25 15:32
--- OUTSIDE RECORDS SUMMARY | 2025-05-04 11:53 | XMS_ITS | Continuity of Care Document ---
Author Organization [facility], Main Office Address [address] [facility] [address] [place] [address] Care Team Providers Care Bobbin Marker Name Role Phone QUAN BAKER Primary Care Provider [facility] Ref erring Provider ZEYAD SLADE Director Of Marketing Communications [phone] SOLO PARIS Referring Provider [phone] FREDY CHAVARRIA Software Engineering Manager [facility] Sleep Medi cine Assessment No assessment recorded. Plan of Treatment Reminders Order Date Submit Date Provider Last Modified By Organization Details Last Modified Time Details Appointments PE EST 026 11:00AM Quan drake MD Not available Not available Not available Lab None record ed. Referral None record ed. Procedures None record ed. Surgeries None record ed. Imaging None record ed. Medication Orders None record ed. Patient TargetsNo targets recorded. Patient Instructions Encounter Date Encounter Id Patient Instructions Last Modified By Organization Details Last Modified Time 04/04/2025 [id number] I have reviewed the note and agree with the assessment and plan of care. [email or web address] Not available 04/04/2025 13:43:07 Reason for Referral None Reported. Problems Name Problem SNOMED Code Status Onset Date Resolution Date Notes Provider Name and Address Organization Details Recorded Time Allergic rhinitis 06912392 Active Maria Del Rosario thurman [facility] 9 09:14:48 Asthma 188701224 Active Maria Del Rosario thurman [facility] 9 09:14:48 Malaise and fatigue 052789329 Completed 03/31/2023 UBALDO OLIVEIRA MD [address] [facility] [address], [place], [address] , [facility] 3 07:55:26 Pure hypercho lesterol emia 600797359 Completed 10/28/2016 Quan Baker MD [address] [facility] [address], [place], [address] , [facility] 7 11:41:58 Insomnia with sleep apnea 54893497 Active Maria Del Rosario Connors null, [facility] 9 09:14:48 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 883890399 Active Maria Del Rosario Connors null, [facility] 9 09:14:48 Palpitat ions 78413958 Completed 11/11/2016 Quan Baker MD [address] [facility] [address], [place], [address] , [facility] 8 14:46:16 Panic disorder without agorapho janee 06233954 Active Maria Del Rosario Connors null, [facility] 9 09:14:48 Dyspnea 325806095 Active Maria Del Rosario Connors null, [facility] 9 09:14:48 Obesity 406578037 Completed 02/21/2014 Yvette Mittal PA-C [address] [facility] [address], [place], [address] , [facility] 6 11:12:29 Tachycar dustin 1751450 Active Maria Del Rosario Connors null, [facility] 9 09:14:48 Ankle edema 08087605 Active Maria Del Rosario Connors null, [facility] 9 09:14:48 Abdomina l pain 91582527 Completed 03/07/2018 RUBÉN Lucas, [facility] 8 13:24:05 Acute low back pain 481208577 Completed 03/07/2018 RUBÉN Lucas, [facility] 8 13:24:18 Paronych ia of toe 152713266 Completed 03/31/2023 UBALDO OLIVEIRA MD [address], [place], [address] , [facility] 3 07:55:30 Insomnia 816024519 Active Maria Del Rosario thurman, [facility] 9 09:14:48 Chronic constipa tion 813340940 Active Maria Del Rosario Connors null, [facility] 9 09:14:48 Weight gain 3813843 Active Maria Del Rosario thurman, [facility] 9 09:14:48 Acute upper respirat ory infectio n 08637229 Completed 200712/10/2013 RECORDED 02/11/20 08 9:20AM BY HEMA RODRIGUEZ ON/ADDEN DUM Yvette Kyrie VIEIRA-C [address] [facility] [address], [place], [address] , [facility] 6 11:12:29 Acute upper respirat ory infectio n 03624249 Completed 200701/02/2014 RECORDED 02/11/20 08 9:20AM BY HEMA RODRIGUEZ ON/ADDEN DUM Yvette Kyrie VIEIRA-C [address], [place], [address] , [facility] 6 11:12:29 Acute upper respirat ory infectio n 25391722 Completed 200701/03/2014 RECORDED 02/11/20 08 9:20AM BY DREAD RODRIGUEZATI ON/ADDEN DUM Yvette Kyrie PA-C [address], [place], [address] , [facility] 6 11:12:29 Degenera tion of interver tebral disc Completed 200712/10/2013 RECORDED 03/11/20 08 10:08AM BY HEMA MARROQUIN ON/ADDEN DUM Yvette Mittal PA-C [address], [place], [address] , [facility] 6 11:12:30 Degenera tion of interver tebral disc Completed 200701/02/2014 RECORDED 03/11/20 08 10:08AM BY HEMA MARROQUIN ON/ADDEN DUM Yvette Mittal PA-C [address], [place], [address] , [facility] 6 11:12:30 Degenera tion of interver tebral disc Completed 200701/03/2014 RECORDED 03/11/20 08 10:08AM BY HEMA MARROQUIN ON/ADDEN DUM Yvette Mittal PA-C [address], [place], [address] , [facility] 6 11:12:30 Influenz a vaccine needed 20430172358 06 Completed 201012/10/2013 DATE: 04/13/20 11; RECORDED 04/24/20 12 2:15PM BY MARILEE MARTINEZ MA, HEMA ON/ADDEN DUM Yvette Kyrie PA-C [address] [facility] [address], [place], [address] , [facility] 6 11:12:30 Influenz a vaccine needed 67974420307 06 Completed 201001/02/2014 DATE: 04/13/20 11; RECORDED 04/24/20 12 2:15PM BY MARILEE MARTINEZ MA, HEMA ON/ADDEN DUM Yvette Kyrie PA-C [address] [facility] [address], [place], [address] , [facility] 6 11:12:30 Influenz a vaccine needed 81797465556 06 Completed 201001/03/2014 DATE: 04/13/20 11; RECORDED 04/24/20 12 2:15PM BY MARILEE MARTINEZ MA, DREADATI ON/ADDEN DUM Yvettebossman Mittal FL-C [address], [place], [address] , [facility] 6 11:12:30 Acute pharyngi tis 875378528 Completed 201112/10/2013 RECORDED 12/05/19 12 2:58PM BY QUAN OCHOA MD, ANNOTATI ON/ADDEN DUM Yvettebossman Mittal [facility] [address] [facility] [address], [place], [address] , [facility] 6 11:12:29 Acute sinusiti s 38795366 Completed 201112/10/2013 IMPRESSI ON: VIRAL; RECORDED 12/05/19 12 2:58PM BY QUAN OCHOA MD, ANNOTATI ON/ADDEN DUM Yvettebossman VIEIRA [address] [facility] [address], [place], [address] , [facility] 6 11:12:29 Cough 16675284 Completed 201112/10/2013 IMPRESSI ON: C/W INFLUENZ A-LIKE ILLNESS, CXR NORMAL; RECORDED 12/05/19 12 3:01PM BY QUAN OCHOA MD, ANNOTATI ON/NELIDAEN DUM Yvette HOUSER [address] [facility] [address], [place], [address] , [facility] 6 11:12:29 Otitis media 76634533 Completed 201112/10/2013 RECORDED 12/05/19 12 2:58PM BY QUAN OCHOA MD, ANNOTATI ON/ADDEN DUM Yvettebossman VIEIRAC [address] [facility] [address], [place], [address] , [facility] 6 11:12:29 Acute pharyngi tis 623868126 Completed 201101/02/2014 RECORDED 12/05/19 12 2:58PM BY QUAN OCHOA MD, ANNOTATI ON/ADDEN DUM Yvette Kyrie PA-C [address], [place], [address] , [facility] 6 11:12:29 Acute sinusiti s 98361057 Completed 201101/02/2014 IMPRESSI ON: VIRAL; RECORDED 12/05/19 12 2:58PM BY QUAN OCHOA MD, ANNOTATI ON/ADDEN DUM Yvette Kyrie PA-C [address], [place], [address] , [facility] 6 11:12:29 Cough 19010090 Completed 201101/02/2014 IMPRESSI ON: C/W INFLUENZ A-LIKE ILLNESS, CXR NORMAL; RECORDED 12/05/19 12 3:01PM BY QUAN OCHOA MD, ANNOTATI ON/ADDEN DUM Yvette Kyrie PA-C [address], [place], [address] , [facility] 6 11:12:29 Otitis media 50413983 Completed 201101/02/2014 RECORDED 12/05/19 12 2:58PM BY QUAN OCHOA MD, ANNOTATI ON/ADDEN DUM Yvette Kyrie VIEIRA-C [address], [place], [address] , [facility] 6 11:12:29 Acute pharyngi tis 131406227 Completed 201101/03/2014 RECORDED 12/05/19 12 2:58PM BY QUAN OCHOA MD, ANNOTATI ON/ADDEN DUM Yvette Kyrie PA-C [address], [place], [address] , [facility] 6 11:12:29 Acute sinusiti s 26109160 Completed 201101/03/2014 IMPRESSI ON: VIRAL; RECORDED 12/05/19 12 2:58PM BY QUAN OCHOA MD, ANNOTATI ON/ADDEN DUM Yvettebossman VIEIRA-C [address], [place], [address] , [facility] 6 11:12:29 Cough 65199452 Completed 201101/03/2014 IMPRESSI ON: C/W INFLUENZ A-LIKE ILLNESS, CXR NORMAL; RECORDED 12/05/19 12 3:01PM BY QUAN OCHOA MD, HEMA ON/ADDEN DUM Yvette VIEIRA-C [address] [facility] [address], [place], [address] , [facility] 6 11:12:29 Otitis media 35745160 Completed 201101/03/2014 RECORDED 12/05/19 12 2:58PM BY QUAN OCHOA MD, ANNOTLISETTE ON/ADDEN DUM Yvettevilma VIEIRA-C [address], [place], [address] , [facility] 6 11:12:29 Elevated blood-pr essure reading without diagnosi s of hyperten william 978990160 Completed 201112/10/2013 IMPRESSI ON: HIS BP IS PROBABLY UP BECAUSE OF ANXIETY BUT WE WILL LOOK FOR OTHER ETIOLOGI ES AND SEE HIM BACK IN A FEW WEEKS TO RECHECK THIS.; RECORDED 01/09/20 12 8:30AM BY HEMA RUVALCABA ON/ADDEN DUM Yvette VIEIRA-C [address], [place], [address] , [facility] 6 11:12:29 Irritabl e bowel syndrome 92272337 Completed 201112/10/2013 RECORDED 01/09/20 12 8:30AM BY HEMA RUVALCABA ON/ADDEN DUM Yvette Mittal PA-C [address], [place], [address] , [facility] 6 11:12:29 Elevated blood-pr essure reading without diagnosi s of hyperten william 874860841 Completed 201101/02/2014 IMPRESSI ON: HIS BP IS PROBABLY UP BECAUSE OF ANXIETY BUT WE WILL LOOK FOR OTHER ETIOLOGI ES AND SEE HIM BACK IN A FEW WEEKS TO RECHECK THIS.; RECORDED 01/09/20 12 8:30AM BY HEMA RUVALCABA ON/ADDEN DUM Yvette Mittal PA-C [address], [place], [address] , [facility] 6 11:12:29 Irritabl e bowel syndrome 94982061 Completed 201101/02/2014 RECORDED 01/09/20 12 8:30AM BY HEMA RUVALCABA ON/ADDEN DUM Yvette Mittal PA-C [address], [place], [address] , [facility] 6 11:12:29 Elevated blood-pr essure reading without diagnosi s of hyperten william 131938346 Completed 201101/03/2014 IMPRESSI ON: HIS BP IS PROBABLY UP BECAUSE OF ANXIETY BUT WE WILL LOOK FOR OTHER ETIOLOGI ES AND SEE HIM BACK IN A FEW WEEKS TO RECHECK THIS.; RECORDED 01/09/20 12 8:30AM BY HEMA RUVALCABA ON/ADDEN DUM Yvette Mittal PA-C [address], [place], [address] , [facility] 6 11:12:29 Irritabl e bowel syndrome 20053639 Completed 201101/03/2014 RECORDED 01/09/20 12 8:30AM BY HEMA RUVALCABA ON/ADDEN DUM Yvette Mittal PA-C [address], [place], [address] , [facility] 6 11:12:29 History of clinical finding in subject 740840554 Completed 201112/31/2013 RECORDED 02/10/20 12 11:56AM BY HEMA RUVALCABA ON/ADDEN DUM Yvette Mittal PA-C [address], [place], [address] , [facility] 6 11:12:30 Tobacco user 320404318 Completed 201112/10/2013 RECORDED 02/10/20 12 11:56AM BY DREAD RUVALCABAATI ON/ADDEN DUM Yvette Mittal PA-C [address] [facility] [address], [place], [address] , [facility] 6 11:12:29 Acute asthma 511641584 Completed 201112/10/2013 IMPRESSI ON: TRIGGERE D BY VIRAL URI. CONTINUE USING ALBUTERO L PRN; RECORDED 02/23/20 12 8:26AM BY ABELARDO HERNANDEZ MA, HEMA ON/ADDEN DUM Yvette Kyrie PA-C [address] [facility] [address], [place], [address] , [facility] 6 11:12:29 Acute asthma 628833942 Completed 201101/02/2014 IMPRESSI ON: TRIGGERE D BY VIRAL URI. CONTINUE USING ALBUTERO L PRN; RECORDED 02/23/20 12 8:26AM BY ABELARDO HERNANDEZ MA, HEMA ON/ADDEN DUM Yvette Kyrie PA-C [address], [place], [address] , [facility] 6 11:12:29 Acute asthma 955449697 Completed 201101/03/2014 IMPRESSI ON: TRIGGERE D BY VIRAL URI. CONTINUE USING ALBUTERO L PRN; RECORDED 02/23/20 12 8:26AM BY ABELARDO HERNANDEZ MA, ANNOTATI ON/ADDEN DUM Yvette Mittal PA-C [address], [place], [address] , [facility] 6 11:12:29 Tachycar dustin 1786701 Completed 201112/10/2013 IMPRESSI ON: .; RECORDED 02/28/20 12 1:35PM BY XAVIER TAMAYO MA, ANNOTATI ON/ADDEN DUM Yvette Mittal PA-C [address], [place], [address] , [facility] 6 11:12:29 Tachycar dustin 8271165 Completed 201101/02/2014 IMPRESSI ON: .; RECORDED 02/28/20 12 1:35PM BY XAVIER TAMAYO MA, ANNOTATI ON/ADDEN DUM Yvette Mittal PA-C [address], [place], [address] , [facility] 6 11:12:29 Tachycar dustin 3537830 Completed 201101/03/2014 IMPRESSI ON: .; RECORDED 02/28/20 12 1:35PM BY XAVIER TAMAYO MA, ANNOTATI ON/ADDEN DUM Yvette Mittal PA-C [address], [place], [address] , [facility] 6 11:12:29 Examinat ion for suspecte d mental disorder Completed 201112/10/2013 RECORDED 04/24/20 12 2:15PM BY MARILEE MARTINEZ MA, ANNOTATI ON/ADDEN DUM Yvette Mittal PA-C [address], [place], [address] , [facility] 6 11:12:30 Examinat ion for suspecte d mental disorder Completed 201101/02/2014 RECORDED 04/24/20 12 2:15PM BY MARILEE MARTINEZ MA, ANNOTATI ON/ADDEN DUM Yvette Mittal PA-C [address], [place], [address] , [facility] 6 11:12:30 Examinat ion for suspecte d mental disorder Completed 201101/03/2014 RECORDED 04/24/20 12 2:15PM BY MARILEE MARTINEZ MA, ANNOTATI ON/ADDEN DUM Yvette Mittal PA-C [address] [facility] [address], [place], [address] , [facility] 6 11:12:30 Adult health examinat ion Completed 201212/10/2013 RECORDED 07/05/19 13 10:29AM BY HEMA RUVALCABA ON/ADDEN DUM Yvette Mittal PA-C [address] [facility] [address], [place], [address] , [facility] 6 11:12:30 Administ ration of diphther ia and tetanus vaccine Completed 201212/10/2013 RECORDED 07/05/19 13 10:29AM BY HEMA RUVALCABA ON/ADDEN DUM Yvette Mittal PA-C [address] [facility] [address], [place], [address] , [facility] 6 11:12:30 Exposure to organism Completed 201212/10/2013 RECORDED 07/05/19 13 10:29AM BY HEMA RUVALCABA ON/ADDEN DUM Yvette Mittal PA-C [address] [facility] [address], [place], [address] , [facility] 6 11:12:30 Adult health examinat ion Completed 201201/02/2014 RECORDED 07/05/19 13 10:29AM BY DREAD RUVALCABAATI ON/ADDEN DUM Yvette Mittal PA-C [address] [facility] [address], [place], [address] , [facility] 6 11:12:30 Administ ration of diphther ia and tetanus vaccine Completed 201201/02/2014 RECORDED 07/05/19 13 10:29AM BY DREAD RUVALCABAATI ON/ADDEN DUM Yvette Mittal PA-C [address], [place], [address] , [facility] 6 11:12:30 Exposure to organism Completed 201201/02/2014 RECORDED 07/05/19 13 10:29AM BY DREAD RUVALCABAATI ON/ADDEN DUM Yvette Mittal PA-C [address], [place], [address] , [facility] 6 11:12:30 Adult health examinat ion Completed 201201/03/2014 RECORDED 07/05/19 13 10:29AM BY DREAD RUVALCABAATI ON/ADDEN DUM Yvette Mittal PA-C [address], [place], [address] , [facility] 6 11:12:30 Administ ration of diphther ia and tetanus vaccine Completed 201201/03/2014 RECORDED 07/05/19 13 10:29AM BY DREAD RUVALCABAATI ON/ADDEN DUM Yvette Mittal PA-C [address] [facility] [address], [place], [address] , [facility] 6 11:12:30 Exposure to organism Completed 201201/03/2014 RECORDED 07/05/19 13 10:29AM BY DREAD RUVALCABAATI ON/ADDEN DUM Yvette Mittal PA-C [address] [facility] [address], [place], [address] , [facility] 6 11:12:30 Respirat ory finding Completed 201212/10/2013 IMPRESSI ON: HIS RESPIRAT ORY SX COULD BE SIMPLY RELATED TO ANXIETY AND PANIC ATTACKS BUT HE HAS BEEN RECEIVIN G TREATMEN T FOR THESE AND HIS SX PERSIST. ; RECORDED 01/10/20 13 11:32AM BY HEMA RUVALCABA ON/YOSEF Villaden ISHA-C [address] [facility] [address], [place], [address] , [facility] 6 11:12:30 Respirat ory finding Completed 201201/02/2014 IMPRESSI ON: HIS RESPIRAT ORY SX COULD BE SIMPLY RELATED TO ANXIETY AND PANIC ATTACKS BUT HE HAS BEEN RECEIVIN G TREATMEN T FOR THESE AND HIS SX PERSIST. ; RECORDED 01/10/20 13 11:32AM BY HEMA RUVALCABA ON/YOSEF VIEIRA-Aj [address] [address], [place], [address] , [facility] 6 11:12:30 Respirat ory finding Completed 201201/03/2014 IMPRESSI ON: HIS RESPIRAT ORY SX COULD BE SIMPLY RELATED TO ANXIETY AND PANIC ATTACKS BUT HE HAS BEEN RECEIVIN G TREATMEN T FOR THESE AND HIS SX PERSIST. ; RECORDED 01/10/20 13 11:32AM BY HEMA RUVALCABA ON/YOSEF VIEIRA-C [address] [address], [place], [address] , [facility] 6 11:12:30 Anxiety state 604820228 Completed 201212/10/2013 IMPRESSI ON: ON MEDS BY PSYCH, WILL TALK TO THEM IF STILL FEELING ANXIOUS ON MONDAY; RECORDED 04/10/20 13 10:23AM BY CHRISTA FRANCIS MA, HEMA ON/YOSEF VIEIRA-C [address] [facility] [address], [place], [address] , [facility] 6 11:12:29 Palpitat ions 61891971 Completed 201212/10/2013 IMPRESSI ON: SOUND BENIGN, MOST LIKELY RELATED TO LOW HYDRATIO N AFTER SURGERYA DN ANXIETY, NL EKG, PT WAS REASSURE D; RECORDED 04/10/20 13 10:23AM BY CHRISTA FRANCIS MA, DREADATI ON/ADDCHARLEE Baker MD [address], [place], [address] , [facility] 8 14:46:16 Sleep apnea 12665525 Completed 201212/10/2013 IMPRESSI ON: HEALING FROM RECENT SEPTOPLA STY, SEEMS TO BE HEALING WELL; RECORDED 04/10/20 13 10:23AM BY CHRISTA FRANCIS MA, HEMA ON/YOSEF HOUSERC [address] [facility] [address], [place], [address] , [facility] 6 11:12:29 Anxiety state 363032337 Completed 201201/02/2014 IMPRESSI ON: ON MEDS BY PSYCH, WILL TALK TO THEM IF STILL FEELING ANXIOUS ON MONDAY; RECORDED 04/10/20 13 10:23AM BY CHRISTA FRANCIS MA, HEMA ON/YOSEF DUM Yvette Mittal PA-C [address] [facility] [address], [place], [address] , [facility] 6 11:12:29 Palpitat ions 93830741 Completed 201201/02/2014 IMPRESSI ON: SOUND BENIGN, MOST LIKELY RELATED TO LOW HYDRATIO N AFTER SURGERYA DN ANXIETY, NL EKG, PT WAS REASSURE D; RECORDED 04/10/20 13 10:23AM BY CHRISTA FRANCIS MA, HEMA ON/YOSEF Baker MD [address] [facility] [address], [place], [address] , [facility] 8 14:46:16 Sleep apnea 81181670 Completed 201201/02/2014 IMPRESSI ON: HEALING FROM RECENT SEPTOPLA STY, SEEMS TO BE HEALING WELL; RECORDED 04/10/20 13 10:23AM BY CHRISTA FRANCIS MA, HEMA ON/ADDEN DUM Yvette Kyrie SIERRA [address], [place], [address] , [facility] 6 11:12:29 Anxiety state 817568327 Completed 201201/03/2014 IMPRESSI ON: ON MEDS BY PSYCH, WILL TALK TO THEM IF STILL FEELING ANXIOUS ON MONDAY; RECORDED 04/10/20 13 10:23AM BY CHRISTA FRANCIS MA, HEMA ON/ADDEN DUM Yvettevilma Mittal PA-C [address], [place], [address] , [facility] 6 11:12:29 Palpitat ions 05426229 Completed 201201/03/2014 IMPRESSI ON: SOUND BENIGN, MOST LIKELY RELATED TO LOW HYDRATIO N AFTER SURGERYA DN ANXIETY, NL EKG, PT WAS REASSURE D; RECORDED 04/10/20 13 10:23AM BY CHRISTA FRANCIS MA, HEMA ON/ADDEN DUM Quan Baker MD [address] [facility] [address], [place], [address] , [facility] 8 14:46:16 Sleep apnea 75346610 Completed 201201/03/2014 IMPRESSI ON: HEALING FROM RECENT SEPTOPLA STY, SEEMS TO BE HEALING WELL; RECORDED 04/10/20 13 10:23AM BY CHRISTA FRANCIS MA, HEMA ON/ADDEN DUM Yvette Mittal PA-C [address], [place], [address] , [facility] 6 11:12:29 Immuniza tion refused Completed 201212/10/2013 RECORDED 04/19/20 13 8:55AM BY HEMA RUVALCABA ON/ADDEN DUM Yvette Kyrie SI[place] [address], [place], [address] , [facility] 6 11:12:30 Increase d frequenc y of urinatio n 835211305 Completed 201212/10/2013 IMPRESSI ON: HE WANTED TO HAVE HIS URINE CHECKED SINCE URINATIN G EVERY HR; RECORDED 04/19/20 13 8:55AM BY DREAD RUVALCABAATI ON/ADDEN DUM Yvette Mittal PA-C [address], [place], [address] , [facility] 6 11:12:29 Immuniza tion refused Completed 201201/02/2014 RECORDED 04/19/20 13 8:55AM BY DREAD RUVALCABAATI ON/ADDEN DUM Yvette Mittal PA-C [address] [facility] [address], [place], [address] , [facility] 6 11:12:30 Increase d frequenc y of urinatio n 142447408 Completed 201201/02/2014 IMPRESSI ON: HE WANTED TO HAVE HIS URINE CHECKED SINCE URINATIN G EVERY HR; RECORDED 04/19/20 13 8:55AM BY HEMA RUVALCABA ON/ADDEN DUM Yvette Mittal PA-C [address] [facility] [address], [place], [address] , [facility] 6 11:12:29 Immuniza tion refused Completed 201201/03/2014 RECORDED 04/19/20 13 8:55AM BY HEMA RUVALCABA ON/ADDEN DUM Yvette Mittal PA-C [address], [place], [address] , [facility] 6 11:12:30 Increase d frequenc y of urinatio n 679703875 Completed 201201/03/2014 IMPRESSI ON: HE WANTED TO HAVE HIS URINE CHECKED SINCE URINATIN G EVERY HR; RECORDED 04/19/20 13 8:55AM BY HEMA RUVALCABA ON/ADDEN DUM Yvette Mittal PA-C [address], [place], [address] , [facility] 6 11:12:29 Obstruct michael sleep apnea syndrome 67716335 Completed 201312/10/2013 RECORDED 07/02/19 14 12:40PM BY WEST INGRAM I ANNOTATI ON/ADDEN DUM Yvette Mittal PA-C [address], [place], [address] , [facility] 6 11:12:29 Obstruct michael sleep apnea syndrome 27368562 Completed 201301/02/2014 RECORDED 07/02/19 14 12:40PM BY DREAD RUVALCABAATI ON/ADDEN DUM Yvette Mittal PA-C [address], [place], [address] , [facility] 6 11:12:29 Obstruct michael sleep apnea syndrome 63259882 Completed 201301/03/2014 RECORDED 07/02/19 14 12:40PM BY DREAD RUVALCABAATI ON/ADDEN DUM Yvette Mittal PA-C [address], [place], [address] , [facility] 6 11:12:29 Laborato ry procedur e performe d 127469543 Completed 201312/10/2013 RECORDED 09/18/19 14 8:19AM BY DREAD RUVALCABAATI ON/ADDEN DUM Yvette Mittal PA-C [address], [place], [address] , [facility] 6 11:12:30 Disorder of upper respirat ory system Completed 201312/10/2013 RECORDED 09/18/19 14 8:19AM BY WEST INGRAM I ANNOTATI ON/ADDEN DUM Yvette Mittal PA-C [address], [place], [address] , [facility] 6 11:12:30 Laborato ry procedur e performe d [id number] Completed 201301/02/2014 RECORDED 09/18/19 14 8:19AM BY WEST INGRAM I ANNOTATI ON/ADDEN DUM Yvette Mittal PA-C [address], [place], [address] , [facility] 6 11:12:30 Disorder of upper respirat ory system Completed 201301/02/2014 RECORDED 09/18/19 14 8:19AM BY DREAD RUVALCABAATI ON/ADDEN DUM Yvette Mittal PA-C [address], [place], [address] , [facility] 6 11:12:30 Laborato ry procedur e performe d [id number] Completed 201301/03/2014 RECORDED 09/18/19 14 8:19AM BY HEMA RUVALCABA ON/ADDEN DUM Yvette Mittal PA-C [address], [place], [address] , [facility] 6 11:12:30 Disorder of upper respirat ory system Completed 201301/03/2014 RECORDED 09/18/19 14 8:19AM BY DREAD RUVALCABAATI ON/ADDEN DUM Yvette Mittal PA-C [address], [place], [address] , [facility] 6 11:12:30 Essentia l hyperten william [id number] Completed 201312/10/2013 RECORDED 09/26/19 14 10:39AM BY DREAD RUVALCABAATI ON/ADDEN DUM Quan Baker MD [address], [place], [address] , [facility] 8 14:46:24 Follow-u p encounte r Completed 201312/31/2013 RECORDED 10/11/19 14 9:52AM BY SHAWNEE RUVALCABAI ON OF OSVALDO HOUSERC [address] [facility] [address], [place], [address] , [facility] 6 11:12:30 Dyspnea [id number] Completed 201301/02/2014 IMPRESSI ON: THIS IS PROBABLY FROM HIS UNDERLYI NG ANXIETY. I ASSURED HIM THAT THERE IS NO MEDICAL REASON FOR HIS SOB AND NO NEED FOR FURTHER W/U. I ALSO EXPLAINE D TO HIM THAT IT IS IMPOSSIB LE FOR HIM TO STOP BREATHIN G AND NOT START UP AGAIN.; RECORDED 11/12/19 14 8:42AM BY WEST INGRAM I ANNOTATI ON/ADDEN DUM Yvette HOUSERC [address] [facility] [address], [place], [address] , [facility] 6 11:12:29 Dyspnea [id number] Completed 201301/03/2014 IMPRESSI ON: THIS IS PROBABLY FROM HIS UNDERLYI NG ANXIETY. I ASSURED HIM THAT THERE IS NO MEDICAL REASON FOR HIS SOB AND NO NEED FOR FURTHER W/U. I ALSO EXPLAINE D TO HIM THAT IT IS IMPOSSIB LE FOR HIM TO STOP BREATHIN G AND NOT START UP AGAIN.; RECORDED 11/12/19 14 8:42AM BY WEST INGRAM I ANNOTATI ON/ADDEN DUM Yvette HOUSERC [address] [facility] [address], [place], [address] , [facility] 6 11:12:29 Laborato ry procedur e performe d [id number] Completed 201301/16/2014 RECORDED 11/13/19 14 1:39PM BY FABRIZIO CONNORS, LAB REKee Mittal PA-C [address] [facility] [address], [place], [address] , [facility] 6 11:12:30 Single major depressi ve episode Completed 201301/16/2014 IMPRESSI ON: WILL RESTART HIS ZOLOFT AT 100 MG INSTEAD 150 AND HE WILL DISCUSS TREATMEN T FURTHER WITH HIS PSYCHIAT RIST ON Apr.; RECORDED 11/27/19 14 12:54PM BY SMITH CARLISLE, OFFICE VISIT Yvette Mittal PA-C [address], [place], [address] , [facility] 6 11:12:29 Essentia l hyperten william [id number] Completed 201301/16/2014 FLORENCEI ON: BYSTOLIC MAY BE COVERED NOW WITH HIS NEW INSURANC E. WILL SEE IF THIS IMPROVES HIS FATIGUE. F/U 2-3 WKS; RECORDED 11/27/19 14 12:54PM BY SMITH CARLISLE, OFFICE VISIT Quan Baker MD [address], [place], [address] , [facility] 8 14:46:24 Tobacco user [id number] Completed 201301/16/2014 RECORDED 11/27/19 14 1:05PM BY MSITH CARLISLE, OFFICE VISIT Yvette Mittal PA-C [address], [place], [address] , [facility] 6 11:12:29 Respirat ory finding Completed 201301/16/2014 FLORENCEI ON: HE WAS INSTRUCT ED TO WEAN FROM HIS BYSTIOLI C TO SEE IF THIS IS CAUSING HIS DEE. HE WILL ALSO STOP THE FLOVENT SINCE THAT HASN'T BEEN HELPING. ; RECORDED 11/27/19 14 1:31PM BY QUAN OCHOA MD, OFFICE VISIT Yvette Mittal PA-C [address], [place], [address] , [facility] 6 11:12:30 Hyperlip idemia 82107867 Active 2016 Maria Del Rosario thurman [facility] 9 09:14:48 Primary erectile dysfunct ion 890243025 Active 2016 Maria Del Rosario thurman [facility] 9 09:14:48 Palpitat ions 51820153 Active 2017 Maria Del Rosario Connors null, [facility] 9 09:14:48 Essentia l hyperten william [id number] Active 2017 Maria Del Rosario thurman, [facility] 9 09:14:48 History of methicil bobby resistan t Staphylo coccus aureus infectio n [id number] Completed 201703/07/2018 Marlene NelsonHenok franck null, [facility] 8 13:51:31 Harmful pattern of use of alcohol 33578906 Active 2018 Luis F Connors MD [address] [address], [place], [address] , [facility] 9 11:51:05 Severe major depressi on with psychoti c features 57402742 Active 2019 Valentina Scott null, [facility] 0 15:00:23 Alcohol dependen ce 29038255 Active 2019 Last drink was 11/30/24 Quan Baker MD [address] [address], [place], [address] , [facility] 5 07:46:54 Severe obesity [id number] 104 Active 2020 Tanvir Adkins MD null, [facility] 1 13:18:02 Sprain of right ankle [id number] 219876 Active [address] [facility]. Quan Baker MD [address] [facility] [address], [place], [address] , [facility] 2 19:57:19 Liver enzymes level above referenc e range 954657500 Active 2021 Quan Baker MD [address] [facility] [address], [place], [address] , [facility] 2 15:39:41 COVID-19 [id number] Completed 202103/31/2023 UBALDO OLIVEIRA MD [address], [place], [address] , [facility] 3 07:55:11 Influenz a caused by Influenz a A virus 531941264 Active 2022 Quan Baker MD [address], [place], [address] , [facility] 3 08:07:22 Bipolar I disorder 977078604 Active 2022 Quan Baker MD [address], [place], [address] , [facility] 3 18:19:44 Obsessiv e-compul sive disorder 976439134 Active 2022 Quan Baker MD [address], [place], [address] , [facility] 3 18:19:57 Fever 872542521 Active [address] [facility] [address] [facility] [address], [place], [address] , [facility] 3 15:47:35 Viral syndrome 366133858 Active 2022 [facility] [address] [facility] [address], [place], [address] , [facility] 3 16:04:12 Acne 72365346 Active 2022 Yvette Mittal PA-C [address], [place], [address] , [facility] 3 09:11:20 Cirrhosi s of liver 22489509 Active [address] Petra Baker MD [address] [facility] [address], [place], [address] , [facility] 3 08:54:27 History of psychiat natanael disorder 215563774 Active 2024 This has been a recurren t problem for him requirin g multiple admissio ns sometime s for extended periods. Quan Baker MD [address] [facility] [address], [place], [address] , [facility] 5 07:46:57 Suicide attempt Active 2024 Tried to hang himself while living in a custodial on 03/24/25 . He was admitted to [facility] on 04/03/25. Quan Baker MD [address] [facility] [address], [place], [address] , [facility] 5 07:56:10 Problem Notes None recorded. Procedures Surgical History Date Name Laterality Status Provider Name and Address Organization Details Recorded Time 0 Suture/Stapl e removal completed Jerome Mittal PA-C [address] [facility] [address], [place], [address], [facility] 04/20/2020 10:20:08 6 Mini-Cog Test completed [place] [facility] 12/14/2015 14:56:52 3 Repair of nasal septum completed Radha Odonnell [facility] 10/06/2014 09:06:57 Imaging Results None recorded. Procedure Notes None recorded. Medical Equipment None Reported. Allergies Allergen ID Allergen Name Allergen Category Reaction Reaction Severity Criticality Documentation Date Start Date Code Code System Note Provider Name and Address Organization Details Recorded Time 25460 Bactrim medicatio n rash moderate Not available 06/22/2017 18675 9 RxNorm [place] [facility] 8 09:54:55 26641 Substance with sulfonami de structure and antibacte rial mechanism of action (substanc e) medicatio n rash Not available Not available 12/27/2019 42975 8003 SNOMED RUBÉN Martinez, [facility] 0 09:26:43 46773 Remeron medicatio n palpitati ons tachycard ia Not available Not available Not available 12/27/2019 19797 4 [facility] 09:27[facility]05 Medications Name Sig Start Date Stop Date Status Note LastModified by Organization Details LastModified Time doxycycli ne hyclate 100 mg [facility] 12/26 completed Not Available Not Available Not Available olanzapin e 10 mg tabs 12/26 completed Not Available Not Available Not Available cephalexi n 500 mg caps 12/26 completed Not Available Not Available Not Available buspirone hydrochlo ride 15 mg tabs 12/26 completed Not Available Not Available Not Available azithromy tyler 500 mg tabs 12/26 completed Not Available Not Available Not Available trazodone hydrochlo ride 100 mg tabs 12/26 completed Not Available Not Available Not Available fluoxetin e hcl 20 mg caps 12/26 completed Not Available Not Available Not Available fluoxetin e hydrochlo ride 40 mg caps 12/26 completed Not Available Not Available Not Available bystolic 5 mg tabs 12/26 completed Not Available Not Available Not Available prednison e 10 mg tabs 12/26 completed Not Available Not Available Not Available propranol ol hydrochlo ride 20 mg tabs 12/26 completed Not Available Not Available Not Available clonazepa m 1 mg tabs 12/26 completed Not Available Not Available Not Available olanzapin e 5 mg tabs 12/26 completed Not Available Not Available Not Available buspirone hcl 15 mg tabs 12/26 completed Not Available Not Available Not Available clonidine hcl 0.1 mg tabs 12/26 completed Not Available Not Available Not Available Prescript ion - Prior Authoriza tion Request 07/22 completed Not Available Not Available Not Available lamotrigi ne 200 mg tabs 12/26 completed Not Available Not Available Not Available trazodone hydrochlo ride 50 mg tabs 12/26 completed Not Available Not Available Not Available buspirone hydrochlo ride 10 mg tabs 12/26 completed Not Available Not Available Not Available carisopro dol 350 mg tablet TID/PRN 03/05 completed RECORDED 03/06/20 07 10:33AM BY LUIS Guillen NP, MEDICATI ON AUTO-REUBEN CTIVATIO N; Not Available Not Available Not Available fluoxetin e 40 mg capsule TAKE 2 CAPSULES BY MOUTH EVERY DAY 01/27 completed per [facility] dicharge summary Not Available Not Available Not Available cyclobenz aprine 10 mg tablet 10/28 completed Not Available Not Available Not Available buspirone 5 mg tablet 03/07 completed Not Available Not Available Not Available lamotrigi ne 150 mg tablet Take 2 tablets every day by oral route for 30 days. 02/27 completed Not Available Not Available Not Available metformin 500 mg tablet TAKE 1 TABLET BY MOUTH EVERY EVENING AT 5PM. active Not Available Not Available No t Available venlafaxi ne ER 37.5 mg capsule,e xtended release 24 hr AT BEDTIME active Not Available Not Available No t Available clonidine HCl 0.1 mg tablet TAKE 1 TABLET ORALLY DAILY NEEDED FOR MODERATE ANXIETY FOR 30 DAYS 01/30 completed Not Available Not Available Not Available dextromet horphan polistire x ER 30 mg/5 mL oral susp ext.relea se 12hr Take 10 mL as needed by oral route as directed . 02/13 completed 02/13/25 per patient not covered by insuranc e Not taken Not Available Not Available Not Available prednison e 10 mg tablet 6 daily for 3 days then 5 daily for 3 days the 4 daily for 2 days then 3 daily for 2 days then 2 daily for 2 days then 1 daily for 2 days. 04/25 completed Not Available Not Available Not Available venlafaxi ne ER 75 mg capsule,e xtended release 24 hr active Not Available Not Available Not Available doxycycli ne hyclate 100 mg capsule Take 1 capsule twice a day by oral route for 7 days. 04/19 completed Not Available Not Available Not Available atorvasta tin 20 mg tablet Take 1 tablet every day by oral route at bedtime for 90 days, for choleste rol. 2024 active Not Available Not Available Not Samir gregory lamotrigi ne 200 mg tablet TAKE 1 TABLET BY MOUTH EVERY DAY 01/30 completed Not Available Not Available Not Available trazodone 50 mg tablet TAKE 2 TABLETS BY MOUTH EVERY DAY AT BEDTIME 01/30 completed Not Available Not Available Not Available cetirizin e 10 mg tablet Take 1 tablet every day by oral route. 07/20 completed Not Available Not Available Not Available azithromy tyler 250 mg tablet TAKE 2 TABLETS BY MOUTH TODAY, THEN TAKE 1 TABLET DAILY FOR 4 DAYS DIRECTED 01/30 completed Not Available Not Available Not Available nicotine (polacril ex) 2 mg gum CHEW 1 PIECE EVERY 2 HOURS NEEDED MINT PREFERRE D 12/11 completed Not Available Not Available Not Available benzonata te 200 mg capsule Take 1 capsule 3 times a day by oral route as needed for 10 days. 01/17 completed Not Available Not Available Not Available hydrocodo ne 5 mg-acetam inophen 325 mg tablet 10/28 completed Not Available Not Available Not Available meloxicam 15 mg tablet Take 1 tablet as needed by oral route. 09/20 completed Not Available Not Available Not Available naltrexon e 50 mg tablet TAKE 1 TABLET BY MOUTH EVERY DAY active Not Available Not Available No t Available Paxil 20 mg tablet DAILY active RECORDED 09/26/19 14 10:49AM BY WEST INGRAM I, OFFICE VISIT; Not Available Not Available Not Available prednison e 20 mg tablet TAKE 1 TABLET BY MOUTH 1 TIME EACH DAY FOR 5 DAYS. 01/30 completed Not Available Not Available Not Available clonazepa m 0.5 mg tablet active RECORDED 02/11/20 08 11:06AM BY ABELARDO HERNANDEZ MA, OFFICE VISIT; Not Available Not Available Not Available Viagra 50 mg tablet Take 1 tablet 1 hour before sexual activity 07/20 completed Not Available Not Available Not Available sertralin e 100 mg tablet Take 1 tablet every day by oral route. 03/07 completed Not Available Not Available Not Available olanzapin e 5 mg tablet Take 1 tablet every day by oral route in the morning for 30 days. 02/15 completed Not Available Not Available Not Available clonazepa m 1 mg tablet TAKE 1 TABLET BY MOUTH TWICE A DAY active Not Available Not Available No t Available atenolol 25 mg tablet once daily active Not Available Not Available No t Available venlafaxi ne ER 150 mg capsule,e xtended release 24 hr IN THE MORNING 09/17 completed RECORDED 09/18/19 14 3:57PM BY SMITH CARLISLE, OFFICE VISIT; Not Available Not Available Not Available thiamine HCl (vitamin B1) 100 mg tablet TAKE 1 TABLET BY MOUTH TWICE A DAY active Not Available Not Available No t Available hydroxyzi ne pamoate 50 mg capsule TAKE 1 CAPSULE BY MOUTH EVERY 4 HOURS NEEDED FOR MODERATE TO SEVERE ANXIETY. active Not Available Not Available No t Available olanzapin e 10 mg tablet TAKE 1 1/2 TABLET BY MOUTH EVERY NIGHT AT BEDTIME X 5 NIGHTS active Not Available Not Available No t Available Advair Diskus 100 mcg-50 mcg/dose powder for inhalatio n TWO TIMES DAILY 09/27 completed RECORDED 10/31/19 12 11:34AM BY XAVIER TAMAYO MA, MEDICATI ON AUTO-REUBEN CTIVATIO N; Not Available Not Available Not Available hydroxyzi ne HCl 50 mg tablet TAKE 1 TABLET BY MOUTH EVERY NIGHT AT BEDTIME NEEDED FOR SLEEP active Not Available Not Available No t Available oxcarbaze pine 300 mg tablet TWO TIMES DAILY 06/18 completed RECORDED 06/18/19 14 10:13AM BY CHRISTA FRANCIS MA, OFFICE VISIT; Not Available Not Available Not Available amlodipin e 5 mg tablet TAKE 1 TABLET BY MOUTH EVERY DAY FOR HIGH BLOOD PRESSURE 04/06 completed increase d his dose to 10 mg Not Available Not Available Not Available bacitraci n zinc 500 unit/gram topical ointment active Not Available Not Available Not Available ciproflox acin 500 mg tablet active Not Available Not Available No t Available Tamiflu 75 mg capsule Take 1 capsule twice a day by oral route for 5 days. 07/09 completed Not Available Not Available Not Available sulfameth oxazole 800 mg-trimet hoprim 160 mg tablet Take 1 tablet every 12 hours by oral route for 7 days. 06/22 completed Not Available Not Available Not Available olanzapin e 2.5 mg tablet TAKE 2.5 MG ORALLY 3 TIMES A DAY NEEDED FOR MOD-SAM RE ANXIETY FOR 30 DAYS 01/30 completed Not Available Not Available Not Available olanzapin e 7.5 mg tablet Take 1 tablet every day by oral route for 30 days. 07/30 completed Not Available Not Available Not Available tramadol 50 mg tablet 06/17 completed complete d Not Available Not Available Not Available bupropion HCl SR 100 mg tablet,12 hr sustained -release TAKE 1 TABLET BY MOUTH EVERY DAY 06/21 completed Not Available Not Available Not Available lithium carbonate ER 450 mg tablet,ex tended release Take 1 tablet every day by oral route at bedtime. 06/21 completed Not Available Not Available Not Available carvedilo l 3.125 mg tablet DAILY 05/14 completed RECORDED 05/14/20 13 12:22PM BY ISHA HOGUE, PHONE ENCOUNTE R; Not Available Not Available Not Available bisoprolo l fumarate 10 mg tablet Take 1 tablet every day by oral route. 07/04 completed Not Available Not Available Not Available lamotrigi ne 25 mg tablet TAKE 2 TABLETS BY MOUTH EVERY DAY 01/30 completed Not Available Not Available Not Available oxycodone -acetamin ophen 5 mg-325 mg tablet Q 3HR/PRN 02/27 completed Not Available Not Available Not Available propranol ol 10 mg tablet TAKE 1 TABLET BY MOUTH TWICE A DAY active Not Available Not Available No t Available ofloxacin 0.3 % ear drops 02/15 completed Not Available Not Available Not Available Fluticaso ne Propionat e (Inhal) 50 mcg/BLIST inhl powd EACH NOSTRIL ONCE DAILY 2013 active RECORDED 09/18/19 14 4:26PM BY QUAN OCHOA MD, OFFICE VISIT; Not Available Not Available Not Available amoxicill in 875 mg tablet one po TWO TIMES DAILY for 10 days 06/23 completed Not Available Not Available Not Available citalopra m 20 mg tablet active Not Available Not Available Not Available Deep Sea Nasal 0.65 % spray aerosol INSTILL 1 SPRAY EVERY DAY BY NASAL ROUTE IN THE MORNING 06/28 completed Not Available Not Available Not Available famotidin e 20 mg tablet TAKE 1 TABLET TWICE A DAY BY ORAL ROUTE FOR 90 DAYS, FOR GERD. 2024 active Not Available Not Available Not Avai lable trazodone 100 mg tablet TAKE 1 TABLET BY MOUTH EVERYDAY AT BEDTIME active Not Available Not Available No t Available nicotine (polacril ex) 4 mg gum CHEW 1 PIECE OF GUM EVERY 2 HOURS PO 12/26 completed Not Available Not Available Not Available temazepam 30 mg capsule active Not Available Not Available Not Available amlodipin e 10 mg tablet TAKE 1 TABLET BY MOUTH EVERY DAY FOR BLOOD PRESSURE active Not Available Not Available No t Available lithium carbonate 300 mg capsule active Not Available Not Available Not Available benzonata te 100 mg capsule THREE TIMES DAILY 03/26 completed RECORDED 03/26/20 08 4:43PM BY SINCERE CARPIO, MEDICATI ON AUTO-REUBEN CTIVATIO N; Not Available Not Available Not Available deslorata dine 5 mg tablet DAILY 03/06 completed RECORDED 04/20/20 10 8:20AM BY QUAN OCHOA MD, MEDICATI ON AUTO-REUBEN CTIVATIO N; Not Available Not Available Not Available fluvoxami ne 100 mg tablet active Not Available Not Available Not Available cephalexi n 500 mg capsule Take 1 capsule every day by oral route for 10 days. 06/29 completed Not Available Not Available Not Available pantopraz ole 40 mg tablet,de layed release TAKE 1 TABLET BY MOUTH EVERY DAY 12/16 completed Not Available Not Available Not Available trazodone 150 mg tablet TAKE 1 TABLET BY MOUTH EVERYDAY AT BEDTIME active Not Available Not Available No t Available buspirone 30 mg tablet Take by oral route for 30 days. 10/06 completed Not Available Not Available Not Available tobramyci n 0.3 % eye drops INSTILL 1 DROP INTO AFFECTED EYE(S) BY OPHTHALM IC ROUTE EVERY 4 HOURS x 7 days. 04/20 completed Not Available Not Available Not Available buspirone 10 mg tablet TAKE 2 TABLETS BY MOUTH TWICE DAILY DIRECTED 12/16 completed Not Available Not Available Not Available divalproe x ER 500 mg tablet,ex tended release 24 hr TAKE 1 TABLET BY MOUTH TWICE A DAY 04/25 /2024 completed Not Available Not Available Not Available clonazepa m 2 mg tablet AT BEDTIME 06/18 completed RECORDED 06/18/19 14 10:13AM BY CHRISTA FRANCIS MA, OFFICE VISIT; Not Available Not Available Not Available Advair Diskus 250 mcg-50 mcg/dose powder for inhalatio n 1 inhalati on BID 07/20 completed Not Available Not Available Not Available benztropi ne 1 mg tablet 06/21 completed Not Available Not Available Not Available metoprolo l tartrate 50 mg tablet TWO TIMES DAILY, MORNING AND NIGHT 06/18 completed RECORDED 06/18/19 14 10:40AM BY ISHA HOGUE, OFFICE VISIT;62 .5 MG Not Available Not Available Not Available fluoxetin e 10 mg capsule active Not Available Not Available Not Available docusate sodium 100 mg capsule TAKE 1 CAPSULE BY MOUTH TWICE A DAY NEEDED FOR CONSTIPA TION active Not Available Not Available No t Available pyridoxin e (vitamin B6) 50 mg tablet TAKE 1 TABLET BY MOUTH EVERY DAY active Not Available Not Available No t Available gabapenti n 300 mg capsule Take 2 capsules every day by oral route at bedtime for 30 days. 10/06 completed Not Available Not Available Not Available sertralin e 25 mg tablet Take 1 tablet every day by oral route. 06/26 completed Not Available Not Available Not Available dextroamp hetamine- amphetami ne ER 10 mg 24hr capsule,e xtend release TAKE 1 CAPSULE BY MOUTH DAILY 04/21 completed Not Available Not Available Not Available hydroxyzi ne HCl 25 mg tablet TAKE 1 TABLET BY MOUTH EVERY 6 HOURS NEEDED FOR ANXIETY 09/20 completed Not Available Not Available Not Available codeine 10 mg-guaife nesin 100 mg/5 mL oral liquid Take 10 mL every 6-8 hours by oral route as needed for 5 days. 03/31 completed Not Available Not Available Not Available olanzapin e 15 mg tablet TAKE 1 TABLET BY MOUTH EVERY NIGHT DIRECTED 07/11 completed Not Available Not Available Not Available Cartia XT 240 mg capsule,e xtended release Take 1 capsule every day by oral route. 07/20 completed Not Available Not Available Not Available bisacodyl 5 mg tablet,de layed release Take 1 tablet by oral route for 30 days. 10/06 completed Not Available Not Available Not Available lisinopri l 5 mg tablet take 1 tablet by mouth once daily active Not Available Not Available No t Available mupirocin 2 % topical ointment APPLY A SMALL AMOUNT TO THE AFFECTED AREA BY TOPICAL ROUTE 3 TIMES PER DAY 07/30 completed Not Available Not Available Not Available fluvoxami ne 50 mg tablet active Not Available Not Available Not Available mirtazapi ne 15 mg tablet 02/27 completed Not Available Not Available Not Available gabapenti n 100 mg capsule TAKE 1 CAPSULE BY MOUTH THREE TIMES DAILY 06/28 completed Not Available Not Available Not Available methylpre dnisolone 4 mg tablets in a dose pack FOLLOW PACKAGE DIRECTIO NS 06/28 completed Not Available Not Available Not Available albuterol sulfate HFA 90 mcg/actua tion aerosol inhaler INHALE 2 PUFFS BY MOUTH EVERY 4 HOURS NEEDED FOR WHEEZING / SHORTNES S OF BREATH active Not Available Not Available No t Available propranol ol 20 mg tablet TAKE 1 TABLET BY MOUTH TWICE DAILY active Not Available Not Available No t Available ketoconaz ole 2 % topical cream APPLY TO THE AFFECTED AREA(S) BY TOPICAL ROUTE ONCE DAILY 07/20 completed Not Available Not Available Not Available lithium carbonate 300 mg tablet AT HS active RECORDED 11/27/19 14 12:58PM BY SMITH CARLISLE, OFFICE VISIT; Not Available Not Available Not Available fluoxetin e 20 mg capsule TAKE 3 CAPSULES BY MOUTH EVERY DAY IN THE MORNING 01/30 completed Not Available Not Available Not Available fluticaso ne propionat e 50 mcg/actua tion nasal spray,michael pension 1 spray each nostril daily 10/30 completed Not Available Not Available Not Available metformin ER 500 mg tablet,ex tended release 24 hr TAKE 2 TABLET BY MOUTH EVERY NIGHT AT BEDTIME active Not Available Not Available No t Available clotrimaz ole 1 % topical cream APPLY TO THE AFFECTED AND SURROUND ING AREAS OF SKIN BY TOPICAL ROUTE 2 TIMES PER DAY IN THE MORNING AND EVENING active Not Available Not Available No t Available sertralin e 50 mg tablet Take 1 tablet every day by oral route for 30 days. 10/30 completed Not Available Not Available Not Available Depakote 250 mg tablet,de layed release Take 3 tablets every day by oral route for 30 days. active Not Available Not Available No t Available doxycycli ne hyclate 100 mg tablet Take 1 tablet twice a day by oral route for 10 days. 06/23 completed Not Available Not Available Not Available atenolol 50 mg tablet AT BEDTIME active RECORDED 05/13/20 13 2:47PM BY ISHA HOGUE, ANNOTATI ON/YOSEF DUM; Not Available Not Available Not Available Ambien 10 mg tablet Take 1 tablet every day by oral route at bedtime for 30 days. 12/13 completed Not Available Not Available Not Available olanzapin e 20 mg tablet TAKE 1 TABLET BY MOUTH EVERYDAY AT BEDTIME active Not Available Not Available No t Available lamotrigi ne 100 mg tablet TAKE 1 TABLET BY MOUTH AT BEDTIME active Not Available Not Available No t Available benzoyl peroxide 4 % topical cleanser WASH THE AFFECTED AREA(S) BY TOPICAL ROUTE ONCE DAILY DURING THE FIRST WEEK, AND TWICE DAILY THEREAFT ER TOLERATE D 09/03 completed Not Available Not Available Not Available naproxen 500 mg tablet TAKE 1 TABLET BY MOUTH TWICE A DAY active Not Available Not Available No t Available amoxicill in 875 mg-potass ium clavulana te 125 mg tablet TAKE 1 TABLET BY MOUTH EVERY 12 HOURS FOR 10 DAYS FOR LEFT EAR INFECTIO N. 01/30 completed Not Available Not Available Not Available clindamyc in phosphate 1 % topical solution APPLY ONCE TOPICALL Y TWICE A DAY FOR FACIAL FOLLICUL ITIS 12/11 completed Not Available Not Available Not Available buspirone 15 mg tablet TK 1 T PO BID UTD 03/25 completed Not Available Not Available Not Available hydroxyzi ne pamoate 25 mg capsule active Not Available Not Available Not Available neomycin- polymyxin -hydrocor t 3.5 mg-10,000 unit/mL-1 % ear drops,michael p INSTILL 4 DROPS INTO AFFECTED EAR(S) BY OTIC ROUTE 3-4 TIMES PER DAY x 10 days max 03/31 completed Not Available Not Available Not Available albuterol (refill) 90 mcg/actua tion aerosol inhaler Q 4 HOURS PRN ASTHMA 11/26 completed RECORDED 11/27/19 14 12:57PM BY SMITH CARLISLE, OFFICE VISIT; Not Available Not Available Not Available menthol lozenges Take 1 lozenge as needed by mucous route as directed . 02/13 completed Not Available Not Available Not Available azithromy tyler 500 mg tablet 03/21 completed Not Available Not Available Not Available divalproe x ER 250 mg tablet,ex tended release 24 hr active Not Available Not Available Not Available nicotine (polacril ex) 2 mg buccal lozenge Take 4 mg every 2 hours by oral route as needed. 02/15 completed Not Available Not Available Not Available cyclobenz aprine 5 mg tablet TAKE 1 TABLET BY MOUTH EVERY DAY FOR 15 DAYS NEEDED 06/28 completed Not Available Not Available Not Available oxymetazo line 0.05 % nasal drops NEEDED 06/18 completed RECORDED 06/18/19 14 10:13AM BY CHRISTA FRANCIS MA, OFFICE VISIT; Not Available Not Available Not Available bupropion HCl XL 300 mg 24 hr tablet, extended release TAKE 1 TABLET BY MOUTH EVERY DAY FOR DEPRESSI ON active Not Available Not Available No t Available lactulose 10 gram/15 mL oral solution Take 15 mL every day by oral route. 10/06 completed Not Available Not Available Not Available eszopiclo ne 2 mg tablet 1 TABLET PO QHS 12/13 completed Not Available Not Available Not Available Flovent HFA 220 mcg/actua tion aerosol inhaler Inhale 2 puffs twice a day by inhalati on route for 30 days. active Not Available Not Available No t Available Asmanex Twisthale r 220 mcg/actua tion(30 doses) breath activated inhalr DAILY active Not Available Not Available Not Available zolpidem ER 12.5 mg tablet,ex tended release,m ultiphase 07/22 completed Not Available Not Available Not Available Luvox QD active RECORDED 09/26/19 14 10:48AM BY WEST INGRAM I, ANNOTATI ON/ADDEN DUM; Not Available Not Available Not Available naproxen BID 04/24 completed RECORDED 08/21/19 08 10:40AM BY LUIS Guillen NP, MEDICATI ON AUTO-REUBEN CTIVATIO N; Not Available Not Available Not Available Guiatuss AT BEDTIME 08/13 completed RECORDED 03/24/20 11 11:21AM BY PAT VINCENT PA-C, MEDICATI ON AUTO-REUBEN CTIVATIO N; Not Available Not Available Not Available Centrum DAILY active RECORDED 04/10/20 13 10:33AM BY WEST INGRAM I, ANNOTATI ON/ADDEN DUM; Not Available Not Available Not Available Pillow Mask Adult QHS 03/14 completed RECORDED 03/14/20 12 12:59PM BY KURT YODER, ANNOTATI ON/ADDEN DUM; Not Available Not Available Not Available Flovent HFA 2 TIMES PER DAY FOR ASTHMA 08/08 completed RECORDED 08/09/19 13 9:03AM BY WEST INGRAM I, MEDICATI ON AUTO-REUBEN CTIVATIO N; Not Available Not Available Not Available Vivitrol 380 mg intramusc ular suspensio n,extende d release 06/21 completed Not Available Not Available Not Available Advair HFA 115 mcg-21 mcg/actua tion aerosol inhaler 07/20 completed Not Available Not Available Not Available quetiapin e 50 mg tablet AT BEDTIME 07/22 completed Not Available Not Available Not Available Pulmicort Flexhaler 180 mcg/actua tion breath activated Inhale 1 puff twice a day by inhalati on route for 30 days. 10/28 completed Not Available Not Available Not Available Symbicort 160 mcg-4.5 mcg/actua tion HFA aerosol inhaler INHALE 1 PUFF BY MOUTH TWICE DAILY 07/11 completed Not Available Not Available Not Available cholecalc iferol (vitamin D3) 1,250 mcg (50,000 unit) capsule TAKE 1 CAPSULE BY MOUTH ONCE WEEKLY 12/11 completed Not Available Not Available Not Available Bystolic 10 mg tablet Take 1 tablet every day by oral route as directed for 90 days. 11/21 completed 15 mg daily Not Available Not Available Not Available Bystolic 5 mg tablet TAKE 3 TABLETS BY MOUTH EVERY DAY DIRECTED 06/29 completed Not Available Not Available Not Available Bystolic 15 mg daily active Not Available Not Available No t Available Luvox CR 100 mg capsule,e xtended release Take 1 capsule every day by oral route for 30 days. active Not Available Not Available No t Available melatonin 5 mg tablet TAKE 1 TABLET BY MOUTH EVERYDAY AT BEDTIME active Not Available Not Available No t Available GaviLyte- G 236 gram-22.7 4 gram-6.74 gram-5.86 gram oral solution 4000 ML BY MOUTH ONCE 12/11 completed Not Available Not Available Not Available Gavilax 17 gram/dose oral powder DISSOLVE 17 GRAMS IN 4-8 OUNCES OF LIQUID AND TAKE BY MOUTH ONCE DAILY NEEDED 12/11 completed Not Available Not Available Not Available Viibryd 10 mg tablet active Not Available Not Available Not Available fluoxetin e 60 mg tablet Take 1 tablet every day by oral route for 15 days. 09/10 completed Not Available Not Available Not Available Sinus Rinse TWO TIMES DAILY, NEEDED 09/07 completed RECORDED 09/20/19 12 9:20AM BY PAT VINCENT PA-C, MEDICATI ON AUTO-REUBEN CTIVATIO N; Not Available Not Available Not Available pyridoxin e (vitamin B6) 50 mg capsule Take 1 capsule every day by oral route as directed . 01/30 completed Not Available Not Available Not Available Belsomra 10 mg tablet Take 1 tablet every day by oral route at bedtime for 30 days. active Not Available Not Available No t Available Asmanex HFA 100 mcg/actua tion aerosol inhaler Inhale 2 puffs twice a day by inhalati on route. 07/22 completed Not Available Not Available Not Available naloxone 4 mg/actuat ion nasal spray ADMINIST ER 1 SPRAY INTO ONE NOSTRIL NEEDED. CALL 911. RPT AFTER 2-3 MIN IF NO/MINIM AL RESPONSE 01/30 completed Not Available Not Available Not Available Flonase Sensimist 27.5 mcg/actua tion nasal spray,michael pension Take 1 spray every day by nasal route at bedtime for 30 days. 04/25 completed PRN Not Available Not Available Not Available multivita min with minerals- ferrous fumarate 15 mg iron tablet TAKE 1 TABLET BY MOUTH EVERY DAY active Not Available Not Available No t Available Afluria Qd 2019- (36 mos up)(PF)60 mcg (15 mcg x4)/0.5 mL IM syringe ADM 0.5ML IM UTD 03/25 completed Not Available Not Available Not Available Daily-Vit e (with folic acid) 400 mcg tablet TAKE 1 TABLET BY MOUTH EVERY DAY 01/25 completed Not Available Not Available Not Available Paxlovid 300 mg (150 mg x 2)-100 mg tablets in a dose pack TK 2 NIRMATRE LVIR TS AND 1 RITONAVI R T TOGETHER PO BID FOR 5 DAYS BID FOR 5 DAYS 03/31 completed Not Available Not Available Not Available Vitals None Recorded Social History Question Answer Notes LastModified by Organizat ion Details LastModified Time Tobacco Smoking Status Current Every Day Smoker quit 04/23/22 06/21/23 started back 2 days ago Pat Florez MA [facility] 06/21/2023 10:36:25 Do You Have An Advance Directive? Yes [id number] Information not available 03/31/2020 Is Blood Transfusion Acceptable In An Emergency? Yes [id number] Information not available 03/31/2020 What Is Your Level Of Caffeine Consumption? Moderate Coffee- 2 Daily Information not available 06/21/2023 How Much Tobacco Do You Chew? None [id number] Information not available 03/31/2020 What Type Of Diet Are You Following? REGULAR Information not available 06/21/2023 Which Illicit Or Recreational Drugs Have You Used? None [id number] Information not available 03/31/2020 Are There Any Guns Present In Your Home? No [id number] Information not available 03/31/2020 Live Alone Or With Others? Alone Information not available 06/21/2023 Do You Take Precautions To Prevent Distracted Driving? Yes [employer] Information not available 04/30/2015 How Often Do You Need To Have Someone Help You When You Read Instructions, Pamphlets, Or Other Written Material From Your Doctor Or Pharmacy? Never [employer] Information not available 04/30/2015 Have You Served In The ? No [employer] Information not available 10/28/2016 Have You Or Anyone In Your Household Had Any Of The Following Symptoms In The Last 14 Days: Sore Throat, Cough, Chills, Body Aches For Unknown Reasons, Shortness Of Breath For Unknown Reasons, Loss Of Smell, Loss Of Taste, Fever At Or Greater Than 100 Degrees Fahrenheit? No Information not available 12/27/2019 Are You Or Anyone In Your Household A Health Care Provider Or Emergency Responder? No Information not available 12/27/2019 To The Best Of Your Knowledge Have You Been In Close Proximity To Any Individual Who Tested Positive For COVID-19? No Information not available 12/27/2019 Have You Recently Traveled To A COVID-19 High Risk Area Or Gathering In The Last 10 Days? No Information not available 06/29/2020 What Was The Date Of Your Most Recent Tobacco Screening? 09/21/2023 [email or web address] Information not available 09/21/2023 How Many Children Do You Have? 0 [id number] Information not available 03/31/2020 What Is Your Current Pack Years? 30ormorepack years Information not available 06/21/2023 Do You Use Protection During Sex? Usually [id number] Information not available 03/31/2020 Seat Belts Used Routinely Yes Information not available 04/30/2015 Are You Sexually Active? No [id number] Information not available 03/31/2020 Smoke Alarm In Home Yes Information not available 04/30/2015 At What Age Did You Start Smoking Tobacco? 18 Information not available 03/25/2020 Are You Passively Exposed To Smoke? Yes Information not available 03/25/2020 How Much Tobacco Do You Smoke? 0.5 PPD Information not available 03/25/2020 General Stress Level High Information not available 01/01/2014 Do You Use Sunscreen Routinely? Yes [id number] Information not available 03/31/2020 How Many Years Have You Smoked Tobacco? 21 Information not available 03/25/2020 How Many Years Have You Used E-cigarettes Or Vape? 1 Information not available 06/28/2022 Sex: Unknown Functional Status Question Answer Note LastModified by Organizat ion Details LastModified Time Do you use any illicit or recreational drugs? No Information not available 06/28/2022 Do you or have you ever used any other forms of tobacco or nicotine? Yes Information not available 03/23/2022 What is your level of alcohol consumption? None Sober since March 2023. Information not available 06/24/2023 Do you or have you ever used smokeless tobacco? Never used smokeless tobacco [id number] Information not available 03/31/2020 Are you currently employed? No disabled; seconadry to mental health issues. Information not available 06/24/2023 Are you able to walk independently without assistance or assistive devices? YESWOREST Information not available 06/21/2023 Are you able to care for yourself independently? Yes sister (Lidia Mcconnell) [id number] Information not available 03/31/2020 What is your occupation? n/a Information not available 11/23/2016 Do you or have you ever used e-cigarettes or vape? Current user of electronic cigarettes since quitting smoking - Mar 2022 Information not available 06/28/2022 What is your exercise level? None Information not available 06/21/2023 Mental Status None recorded. Family History Relationship Description Onset Age of this Age Resolved Age Notes LastModified by Organization Details LastModified Time Mother Hypertensive disorder [email or web address] Not available 11/2015 10:25:16 Mother Valvuloplast y of aortic valve 75 79 [email or web address] Not available 10:37:00 Father Suicide 47 [email or web address] Not availab le 11/21/2018 13:43:04 Father Depressive disorder 42 [email or web address] Not available 06/2016 11:26:03 Father Harmful pattern of use of alcohol [email or web address] Not available 06/2019 09:47:18 Sister Harmful pattern of use of alcohol sober for 15 years [email or web address] Not available 03/30/2020 09:47:46 Medical History No medical history recorded. Immunizations Vaccine Type Date Status Note Provider Nam e and Address Organization Details Recorded Time pneumococcal polysaccharide PPV23 9 completed RUBÉN Rick [facility] 12/22/2021 13:26:56 Influenza, split virus, trivalent, preservative 0 completed RUBÉN José, [facility] 03/25/2020 13:05:19 tetanus toxoid, unspecified formulation 0 completed Jerome Mittal PA-C [address] [address], [place], [address], [facility] 04/20/2020 09:57:18 COVID-19, mRNA, LNP-S, PF, 30 mcg/0.3 mL dose 1 completed RUBÉN Rick, [facility] 12/22/2021 13:26:56 COVID-19, mRNA, LNP-S, PF, 30 mcg/0.3 mL dose 1 completed RUBÉN Rick, [facility] 12/22/2021 13:26:57 Influenza, split virus, quadrivalent, PF 5 completed RUBÉN Rick, [facility] 12/22/2021 13:26:56 Influenza, split virus, quadrivalent, PF 6 completed RUÉBN Rick, [facility] 12/22/2021 13:26:56 Influenza, split virus, quadrivalent, PF 8 completed RUBÉN Rick, [facility] 12/22/2021 13:26:56 Influenza, split virus, quadrivalent, PF 7 completed RUBÉN Rick, [facility] 12/22/2021 13:26:56 Influenza, split virus, quadrivalent, PF 1 completed RUBÉN Rick, [facility] 12/22/2021 13:26:57 Influenza, split virus, trivalent, PF [facility] 13:26:57 COVID-19, mRNA, LNP-S, PF, 30 mcg/0.3 mL dose 1 completed RUBÉN Rick, [facility] 12/22/2021 13:26:57 Tdap 0 completed RUBÉN Rick, [facility] 12/22/2021 13:26:57 Influenza, split virus, quadrivalent, PF 9 completed RUBÉN Rick, [facility] 12/22/2021 13:26:57 Influenza, split virus, quadrivalent, PF 3 completed JANA Linn, [facility] 03/31/2023 11:07:57 Hep B, adolescent or pediatric 8 completed Not Available [facility] 06/22/2023 14:06:24 Hep B, adolescent or pediatric 8 completed Maria Del Rosario Connors null, [facility] 07/09/2018 09:14:42 Hep B, adolescent or pediatric 8 completed Maria Del Rosarioluca Connors null, [facility] 07/09/2018 09:14:42 Td (adult), 2 Lf tetanus toxoid, preservative free, adsorbed 6 completed Maria Del Rosario Connors null, [facility] 07/09/2018 09:14:42 Tdap 2 completed Maria Del Rosario Connors null, [facility] 07/09/2018 09:14:42 Influenza, split virus, trivalent, preservative 3 completed Pat Florez MA null, [facility] 12/22/2021 13:26:57 Influenza, split virus, trivalent, PF 4 completed Quan Baker MD [address] [address], [place], [address], [facility] 04/06/2024 08:27:21 Influenza, split virus, trivalent, PF 5 completed Pat Florez MA [facility] 02/13/2025 09:22:16 Past Encounters Encounter ID Performer Location Encounter Start Date Encounter Closed Date Diagnosis/Indication Diagnosis SNOMED-CT Code Diagnosis ICD10 Code Diagnosis IMO Codes Diagnosis Note [id number] Quan Baker MD Main Office [address] [facility] [place]ÉN [place] [id number] 04/04/2025 12:57:30 04/04/2025 14:05:03 Health Concerns Section Related Observation LastModified by Organization Detai ls LastModified Time None Recorded Concern Status LastModified by Organization Details LastModified Time None Recorded Payers Encounter Date Sequence Insurance Name Policy Number Policy Cooper Covered Member ID Cooper Member ID Guarantor Name 04/04/2025 2 [place] [facility] Tahir Reyes [id number] Tahir Reyes 04/04/2025 1 [place] [employer] Tahir Reyes [id number] Tahir Reyes Notes Date Note Type Note Provider Name and Address Organization Details Recorded Time 5 text/html Hospitalization Contact RecordReported by PatientHospitalization Contact RecordFor follow up, patient reportshospital: snf,admit date: (please enter in format 'mm/dd/yyyy') (03/25/2025),date of discharge: (please enter in format 'mm/dd/yyyy') (04/03/2025), anddate of contact: (please enter in format 'mm/dd/yyyy') (04/04/2025)([facility]).Med icare covered inpatient stay? yes Medicare [place] with in 48 working hours? yes High Complexity code valid on or before:March Moderate Complexity code valid on or before: March HCP on file? no MOLST on file? no Discharge Summary available? yes 44 year old male with history of mental health illness who presented to [facility] on 03/24/2025 due to suicidal ideation who then was transferred to [facility] on 03/25/2025 for further mental health management. Patient admitted for 10 daysenrolled in the following servicesone on one counselinggroup counselingone on one provider sessions Patient respond well to all service, participated in all activities .Compliant with medication regimen, mood improved during stay. Patient compliant with medication regimen- mood has improved during stay . Patient discharge to follow up with PCP and encourage to be compliant with outpatient therapy session. Oscillograph Technician Quinton call to patient regarding discharge status. Patient reports doing well. No intention in harming himself, aware to return to ED or call crisis line if has any negative thoughts. Compliant with medications , no questions or concerns. Scheduled patient with provider on 04/10/2025 at 9;45 am. Quan Baker MD [address] [address], [place], [address], [facility] 04/04/2025 13:43:13
--- OUTSIDE RECORDS SUMMARY | 2025-05-04 11:54 | XMS_ITS | Data Portability ---
Author Organization [facility], Main Office Address [address] [facility] [address] [place] [id number] Care Team Providers Care International Operations Manager Name Role Phone PASQUALE BAKER Primary Care Provider [facility][1] [facility] Ref erring Provider ZEYAD SLADE Unitizer SOLO PARIS Referring Provider [phone] FREDY CORDOVA Chief Pilot [facility] Sleep Medi cine Assessment No assessment recorded. Plan of Treatment Reminders Order Date Submit Date Provider Last Modified By Organization Details Last Modified Time Details Appointments PE EST 2025 11:00A M Pasquale drake MD Not available Not available Not available Lab None recorded. Referral nutrition ist/dieti hernan referral 2024 025 [email or web address] Not available 01/31/2025 11:59:29 Procedures None recorded. Surgeries None recorded. Imaging None recorded. Medication Orders None recorded. Patient TargetsNo targets recorded. Patient Instructions Encounter Date Encounter Id Patient Instructions Last Modified By Organization Details Last Modified Time 01/08/2025 [id number] During [facility] f/u call, all current and discharge medications (OTC, herbal therapies, supplements) reviewed and reconciled with patient, including potential side effects, drug interactions, instructions, and the consequences of not taking medication. Reviewed potential barriers to medication adherence, such as side effects from medication or cost of medication. I have reviewed the note and agree with the assessment and plan of care. [email or web address] Not available 01/13/2025 11:39:54 01/28/2025 [id number] I have reviewed the note and agree with the assessment and plan of care. [email or web address] Not available 01/28/2025 10:52:55 01/30/2025 [id number] alcohol detoxification and withdrawal: care instructions [email or web address] Not available 01/31/2025 10:04:51 substance use disorder: care instructions [email or web address] Not available 01/31/2025 10:04:51 acute alcohol intoxication: care instructions [email or web address] Not available 01/31/2025 10:04:51 Starting a Weight-Loss Plan: Care Instructions [email or web address] Not available 01/31/2025 10:04:51 At [facility] follow up visit, all current and discharge medications (OTC, herbal therapies, supplements) reviewed and reconciled with patient and or caregiver, including potential side effects, drug interactions, instructions, and the consequences of not taking medication. Reviewed potential barriers to medication adherence, such as side effects from medication or cost of medication. [email or web address] Not available 01/30/2025 11:16:42 02/13/2025 [id number] plantar fasciiti s: care instructions [email or web address] Not available 02/13/2025 09:34:25 plantar fasciiti s: exercises [email or web address] Not available 02/13/2025 09:34:25 04/04/2025 [id number] I have reviewed the note and agree with the assessment and plan of care. [email or web address] Not available 04/04/2025 13:43:07 Reason for Referral Criminal Justice Faculty/dietitian Refer ral for Body mass index 30+ - obesity Referring Physician: Pasquale Baker, Family Medicine, Encounter Date: 01/30/2025 Results Created Date Observation Date Name Description Value Unit Range Abnormal Flag Note LastModifiedBy Organization Detail LastModifiedTime 01/01/2012/31/2024 COMPL ETE BLOOD COUNT WBC 8.1 K/mcL 4.8-10 .8 Not Available [facility] U/S Dept [address], [place], [address], 12/31/2024 16:31:50 01/01/2012/31/2024 COMPL ETE BLOOD COUNT RBC 5.00 M/mcL 4.50-5 .50 Not Available [facility] [address] [place] [address] [place], [address], 12/31/2024 16:31:50 01/01/20 25 12/31/2024 COMPL ETE BLOOD COUNT hemoglobin 14.1 g/dL 13.5-1 7.5 Not Available [facility] [address] [place], [place] [address], [address], 12/31/2024 16:31:50 01/01/2012/31/2024 COMPL ETE BLOOD COUNT hematocrit 41.1 % 42.0-5 4.0 low Not Available [facility] [address] [place], [place] [address], [address], 12/31/2024 16:31:50 01/01/20 25 12/31/2024 COMPL ETE BLOOD COUNT MCV 82.7 fL 79.0-9 8.0 Not Available [facility] [address] [place], [place] [address], [address], 12/31/2024 16:31:50 01/01/20 25 12/31/2024 COMPL ETE BLOOD COUNT MCH 28.4 pcg 27.0-3 2.0 Not Available [facility] [address] [place], [place] [address], [address], 12/31/2024 16:31:50 01/01/20 25 12/31/2024 COMPL ETE BLOOD COUNT MCHC 34.3 g/dL 32.0-3 7.0 Not Available [facility] [address] [place], [place] [address], [address], 12/31/2024 16:31:50 01/01/20 25 12/31/2024 COMPL ETE BLOOD COUNT RDW 13.2 % 11.0-1 5.0 Not Available [address] [place], [address], 12/31/2024 16:31:50 01/01/20 25 12/31/2024 COMPL ETE BLOOD COUNT platelets 254 K/mcL 130-40 0 Not Available [address], [address], 12/31/2024 16:31:50 01/01/20 25 12/31/2024 COMPL ETE BLOOD COUNT MPV 10.3 fL 7.0-11 .0 Not Available [address], [address], 12/31/2024 16:31:50 01/01/20 25 12/31/2024 COMPL ETE BLOOD COUNT NRBC 0.0 % <1.0 Not Available [facility] [address] [place] [address], [address], 12/31/2024 16:31:50 01/01/20 25 12/31/2024 COMPL ETE BLOOD COUNT NRBC absolute 0.00 K/mcL <0.10 Not Available [address], [address], 12/31/2024 16:31:50 01/01/20 25 12/31/2024 COMPL ETE BLOOD COUNT note See Report [facility], [address], [place], [place] [address] Not Available [address], [address], 12/31/2024 16:31:50 01/01/20 25 12/31/2024 BILIR UBIN, DIREC T bilirubin, direct 0.2 mg/dL 0.0-0. 3 Not Available [address] [facility] [place], [address], 12/31/2024 16:47:05 01/01/20 25 12/31/2024 PEE BELTRAN [facility] T note See Report [facility], [address], [place], [place] [address] Not Available [facility]/S Dept [address] [place], [place] [address] [place], [address], 12/31/2024 16:47:05 01/01/20 25 12/31/2024 COMPR EHENS RYLIE METAB OLIC PANEL sodium 138 mmol/ L 133-14 5 Not Available [facility] [address] [place], [place] [address] [place], [address], 12/31/2024 16:51:04 01/01/20 25 12/31/2024 COMPR EHENS RYLIE METAB OLIC PANEL potassium 3.9 mmol/ L 3.5-5. 5 Not Available [facility] [address] [place] [address] [facility] [place], [address], 12/31/2024 16:51:04 01/01/20 25 12/31/2024 COMPR EHENS RYLIE METAB OLIC PANEL chloride 106 mmol/ L 96-110 Not Available [facility]/S Dept [address] [place] [address] [facility] [place], [address], 12/31/2024 16:51:04 01/01/20 25 12/31/2024 COMPR EHENS RYLIE METAB OLIC PANEL CO2 27 mmol/ L 21-32 Not Available [facility] [address] [place] [address] [facility] [place], [address], 12/31/2024 16:51:04 01/01/20 25 12/31/2024 COMPR EHENS RYLIE METAB OLIC PANEL anion gap 5 3-11 Not Available [facility]/S Dept [address] [place] [address] [place], [address], 12/31/2024 16:51:04 01/01/20 25 12/31/2024 COMPR EHENS RYLIE METAB OLIC PANEL glucose 81 mg/dL 70-100 Not Available [facility] [address] [place], [place] [address], [place], [facility], 12/31/2024 16:51:04 01/01/20 25 12/31/2024 COMPR EHENS RYLIE METAB OLIC PANEL BUN 9 mg/dL 5-25 Not Available [facility] [address] [place], [place] [address], [place], [facility], 12/31/2024 16:51:04 01/01/20 25 12/31/2024 COMPR EHENS RYLIE METAB OLIC PANEL creatinine 1.21 mg/dL 0.70-1 .30 Not Available [facility] [address] [place], [place] [address], [place], [facility], 12/31/2024 16:51:04 01/01/20 25 12/31/2024 COMPR EHENS RYLIE METAB OLIC PANEL eGFR 76 mL/mi n/1.7 3m2 >=60 Calcu latio n based on the Chron ic Kidne y Disea se Epide miolo gy Colla borat ion (CKD- EPI) equat ion refit witho ut adjus tment for race. Not Available [facility] [address] [place], [place] [address], [place], [facility], 12/31/2024 16:51:04 01/01/20 25 12/31/2024 COMPR EHENS RYLIE METAB OLIC PANEL BUN/creatini ne ratio 7.4 Not Available [facility] [address] [place] [address], [address], 12/31/2024 16:51:04 01/01/20 25 12/31/2024 COMPR EHENS RYLIE METAB OLIC PANEL calcium 9.3 mg/dL 8.5-10 .5 Not Available [facility]/S Dept [facility] [address], [place], [address], 12/31/2024 16:51:04 01/01/20 25 12/31/2024 COMPR EHENS RYLIE METAB OLIC PANEL AST (SGOT) 18 unit/ L 10-42 Not Available [facility] [address], [place], [address], 12/31/2024 16:51:04 01/01/20 25 12/31/2024 COMPR EHENS RYLIE METAB OLIC PANEL ALT (SGPT) 25 unit/ L 10-60 Not Available [facility] [address], [place], [address], 12/31/2024 16:51:04 01/01/20 25 12/31/2024 COMPR EHENS RYLIE METAB OLIC PANEL alkaline phosphatase 88 unit/ L 42-121 Not Available [facility] [address], [place], [address], 12/31/2024 16:51:04 01/01/20 25 12/31/2024 COMPR EHENS RYLIE METAB OLIC PANEL total protein 7.2 g/dL 6.0-8. 0 Not Available [facility] [address] [place], [place] [address], [place], [address], 12/31/2024 16:51:04 01/01/20 25 12/31/2024 COMPR EHENS RYLIE METAB OLIC PANEL albumin 4.5 g/dL 3.2-5. 0 Not Available [facility] [address], [place], [address], 12/31/2024 16:51:04 01/01/20 25 12/31/2024 COMPR EHENS RYLIE METAB OLIC PANEL total bilirubin 0.7 mg/dL 0.0-1. 4 Not Available [facility] [address] [place] [address], [address], 12/31/2024 16:51:04 01/01/20 25 12/31/2024 COMPR EHENS RYLIE METAB OLIC PANEL note See Report [facility], [address], [place], [facility] [address] Not Available [facility] [address] [place] [address], [address], 12/31/2024 16:51:04 01/01/20 25 12/31/2024 THYRO ID STIMU LATIN G HORMO NE WITH REFLE X TO FREE T4 AND FREE T3 TSH 1.50 mciu/ mL 0.40-4 .00 Not Available [facility] [address] [place] [address], [address], 12/31/2024 18:05:09 01/01/20 25 12/31/2024 THYRO ID STIMU LATIN G HORMO NE WITH REFLE X TO FREE T4 AND FREE T3 note See Report [facility], [address], [place], [facility] [address] Not Available [facility] [address] [place] [address], [address], 12/31/2024 18:05:09 01/01/20 25 12/31/2024 HIV 1, 2 ANTIB MER, P24 ANTIG EN WITH REFLE X TO DIFFE RENTI ATION HIV combo Ab/Ag Negati ve negati ve Not Available [facility] [address] [place] [address], [address], 12/31/2024 18:45:21 01/01/20 25 12/31/2024 HIV 1, 2 ANTIB MER, P24 ANTIG EN WITH REFLE X TO DIFFE RENTI ATION note See Report [facility], [address], [place], [place] [address] Not Available [facility] [address] [place] [address], [address], 12/31/2024 18:45:21 01/01/20 25 12/31/2024 HEPAT ITIS PANEL , ACUTE WITH REFLE X TO CONFI RMATI ON hepatitis B surface Ag Negati ve negati ve Not Available [facility] [address] [place] [address] [place], [address], 12/31/2024 20:11:28 01/01/20 25 12/31/2024 HEPAT ITIS PANEL , ACUTE WITH REFLE X TO CONFI RMATI ON hepatitis A antibody IgM Negati ve negati ve Not Available [facility] [address] [place] [address] [place], [address], 12/31/2024 20:11:28 01/01/20 25 12/31/2024 HEPAT ITIS PANEL , ACUTE WITH REFLE X TO CONFI RMATI ON hep B core IgM Negati ve negati ve Not Available [facility] [address] [place] [address], [place], [address], 12/31/2024 20:11:28 01/01/20 25 12/31/2024 HEPAT ITIS PANEL , ACUTE WITH REFLE X TO CONFI RMATI ON hepatitis C antibody Negati ve negati ve Not Available [facility] [address] [place] [address] [place], [address], 12/31/2024 20:11:28 01/01/20 25 12/31/2024 HEPAT ITIS PANEL , ACUTE WITH REFLE X TO CONFI RMATI ON note See Report [facility], [address], [place], [facility] [facility] [place] [address] Not Available [facility] [address] [place] [address], [address], 12/31/2024 20:11:28 02/14/20 25 02/11/2025 XR, foot, 3 or more view No observ ation record ed. [email or web address] Not Available 01/27 10:56:15 Result Notes None recorded. Problems Name Problem SNOMED Code Status Onset Date Resolution Date Notes Provider Name and Address Organization Details Recorded Time Allergic rhinitis 56705634 Active Maria Del Rosario Connors null, [facility] 9 09:14:48 Asthma 376887770 Active Maria Del Rosario Connors null, [facility] 9 09:14:48 Malaise and fatigue 815180447 Completed 03/31/2023 UBALDO OLIVEIRA MD [address] [facility] [address], [place], [address] , [facility] 3 07:55:26 Pure hypercho lesterol emia 300339532 Completed 10/28/2016 Pasquale Baker MD [address] [facility] [address], [place], [address] , [facility] 7 11:41:58 Insomnia with sleep apnea 94803591 Active Maria Del Rosarioluca Connors cuca, [facility] 9 09:14:48 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 875418665 Active Maria Del Rosario Connors cuca, [facility] 9 09:14:48 Palpitat ions 98218945 Completed 11/11/2016 Pasquale Baker MD [address] [facility] [address], [place], [address] , [facility] 8 14:46:16 Panic disorder without agorapho janee 76272943 Active Maria Del Rosario Connors null, [facility] 9 09:14:48 Dyspnea 868732543 Active Maria Del Rosario Connors null, [facility] 9 09:14:48 Obesity 070975054 Completed 02/21/2014 Yvette Mittal PA-C [address] [facility] [address], [place], [address] , [facility] 6 11:12:29 Tachycar dustin 2460682 Active Maria Del Rosario thurman, [facility] 9 09:14:48 Ankle edema 08729109 Active Maria Del Rosario thurman, [facility] 9 09:14:48 Abdomina l pain 02504049 Completed 03/07/2018 RUBÉN Lucas, [facility] 8 13:24:05 Acute low back pain 857593207 Completed 03/07/2018 RUBÉN Lucas, [facility] 8 13:24:18 Paronych ia of toe 105880834 Completed 03/31/2023 UBALDO OLIVEIRA MD [address] [facility] [address], [place], [address] , [facility] 3 07:55:30 Insomnia 191132746 Active Maria Del Rosario thurman, [facility] 9 09:14:48 Chronic constipa tion 726499307 Active Maria Del Rosario thurman, [facility] 9 09:14:48 Weight gain 4167736 Active Maria Del Rosario thurman, [facility] 9 09:14:48 Acute upper respirat ory infectio n 50449453 Completed 200712/10/2013 RECORDED 02/11/20 08 9:20AM BY HEMA RODRIGUEZ ON/YOSEF Mittal PA-C [address] [facility] [address], [place], [address] , [facility] 6 11:12:29 Acute upper respirat ory infectio n 84640667 Completed 200701/02/2014 RECORDED 02/11/20 08 9:20AM BY HEMA RODRIGUEZ ON/ADDEN DUM Yvette Mittal PA-C [address], [place], [address] , [facility] 6 11:12:29 Acute upper respirat ory infectio n 25844000 Completed 200701/03/2014 RECORDED 02/11/20 08 9:20AM BY HEMA RODRIGUEZ ON/ADDEN DUM Yvette Mittal PA-C [address], [place], [address] , [facility] 6 11:12:29 Degenera tion of interver tebral disc Completed 200712/10/2013 RECORDED 03/11/20 08 10:08AM BY HEMA MARROQUIN ON/ADDEN DUM Yvette Mittal PA-C [address], [place], [address] , [facility] 6 11:12:30 Degenera tion of interver tebral disc Completed 200701/02/2014 RECORDED 03/11/20 08 10:08AM BY HEMA MARROQUIN ON/ADDEN DUM Yvette Mittal PA-C [address], [place], [address] , [facility] 6 11:12:30 Degenera tion of interver tebral disc Completed 200701/03/2014 RECORDED 03/11/20 08 10:08AM BY HEMA MARROQUIN ON/ADDEN DUM Yvette Mittal PA-C [address], [place], [address] , [facility] 6 11:12:30 Influenz a vaccine needed 47519693874 06 Completed 201012/10/2013 DATE: 04/13/20 11; RECORDED 04/24/20 12 2:15PM BY MARILEE MARTINEZ MA, ANNOTATI ON/ADDEN DUM Yvette Mittal PA-C [address] [facility] [address], [place], [address] , [facility] 6 11:12:30 Influenz a vaccine needed 77650445125 06 Completed 201001/02/2014 DATE: 04/13/20 11; RECORDED 04/24/20 12 2:15PM BY MARILEE MARTINEZ MA, HEMA ON/ADDEN DUM Yvette Mittal PA-C [address] [facility] [address], [place], [address] , [facility] 6 11:12:30 Influenz a vaccine needed 75077020126 06 Completed 201001/03/2014 DATE: 04/13/20 11; RECORDED 04/24/20 12 2:15PM BY MARILEE MARTINEZ MA, HEMA ON/YOSEF DUM Yvette Mittal PA-C [address] [facility] [address], [place], [address] , [facility] 6 11:12:30 Acute pharyngi tis 505781489 Completed 201112/10/2013 RECORDED 12/05/19 12 2:58PM BY PASQUALE OCHOA MD, HEMA ON/YOSEF Sotovilma Mittal [employer]-C [address] [facility] [address], [place], [address] , [facility] 6 11:12:29 Acute sinusiti s 84147072 Completed 201112/10/2013 IMPRESSI ON: VIRAL; RECORDED 12/05/19 12 2:58PM BY PASQUALE OCHOA MD, HEMA ON/YOSEF WOLFE Vibossman Mittal PA-C [address] [facility] [address], [place], [address] , [facility] 6 11:12:29 Cough 38197950 Completed 201112/10/2013 IMPRESSI ON: C/W INFLUENZ A-LIKE ILLNESS, CXR NORMAL; RECORDED 12/05/19 12 3:01PM BY PASQUALE OCHOA MD, ANNOTATI ON/ADDEN DUM Yvette Kyrie PA-C [address], [place], [address] , [facility] 6 11:12:29 Otitis media 13937599 Completed 201112/10/2013 RECORDED 12/05/19 12 2:58PM BY PASQUALE OCHOA MD, ANNOTATI ON/ADDEN DUM Yvette Kyrie PA-C [address], [place], [address] , [facility] 6 11:12:29 Acute pharyngi tis 405940297 Completed 201101/02/2014 RECORDED 12/05/19 12 2:58PM BY PASQUALE OCHOA MD, ANNOTATI ON/ADDEN DUM Yvettevilma VIEIRA-C [address] [facility] [address], [place], [address] , [facility] 6 11:12:29 Acute sinusiti s 20872079 Completed 201101/02/2014 IMPRESSI ON: VIRAL; RECORDED 12/05/19 12 2:58PM BY PASQUALE OCHOA MD, ANNOTATI ON/ADDEN DUM Yvette VIEIRA-C [address] [facility] [address], [place], [address] , [facility] 6 11:12:29 Cough 45072079 Completed 201101/02/2014 IMPRESSI ON: C/W INFLUENZ A-LIKE ILLNESS, CXR NORMAL; RECORDED 12/05/19 12 3:01PM BY PASQUALE OCHOA MD, ANNOTATI ON/ADDEN DUM Yvette VIEIRA-C [address] [facility] [address], [place], [address] , [facility] 6 11:12:29 Otitis media 79311626 Completed 201101/02/2014 RECORDED 12/05/19 12 2:58PM BY PASQUALE OCHOA MD, ANNOTATI ON/ADDEN DUM Yvette HOUSERC [address], [place], [address] , [facility] 6 11:12:29 Acute pharyngi tis 778549328 Completed 201101/03/2014 RECORDED 12/05/19 12 2:58PM BY PASQUALE OCHOA MD, ANNOTATI ON/ADDEN DUM Yvette HOUSERC [address] [facility] [address], [place], [address] , [facility] 6 11:12:29 Acute sinusiti s 12346307 Completed 201101/03/2014 IMPRESSI ON: VIRAL; RECORDED 12/05/19 12 2:58PM BY PASQUALE OCHOA MD, ANNOTATI ON/ADDEN DUM Yvette HOUSERC [address] [facility] [address], [place], [address] , [facility] 6 11:12:29 Cough 71891072 Completed 201101/03/2014 IMPRESSI ON: C/W INFLUENZ A-LIKE ILLNESS, CXR NORMAL; RECORDED 12/05/19 12 3:01PM BY PASQUALE OCHOA MD, ANNOTLISETTE ON/ADDEN DUM Yvette HOUSERC [address] [facility] [address], [place], [address] , [facility] 6 11:12:29 Otitis media 81467040 Completed 201101/03/2014 RECORDED 12/05/19 12 2:58PM BY PASQUALE OCHOA MD, HEMA ON/YOSEF HOUSERC [address] [facility] [address], [place], [address] , [facility] 6 11:12:29 Elevated blood-pr essure reading without diagnosi s of hyperten william 375387339 Completed 201112/10/2013 IMPRESSI ON: HIS BP IS PROBABLY UP BECAUSE OF ANXIETY BUT WE WILL LOOK FOR OTHER ETIOLOGI ES AND SEE HIM BACK IN A FEW WEEKS TO RECHECK THIS.; RECORDED 01/09/20 12 8:30AM BY HEMA RUVALCABA ON/ADDEN DUM Yvette Mittal PA-C [address], [place], [address] , [facility] 6 11:12:29 Irritabl e bowel syndrome 59220470 Completed 201112/10/2013 RECORDED 01/09/20 12 8:30AM BY HEMA RUVALCABA ON/ADDEN DUM Yvette Mittal PA-C [address], [place], [address] , [facility] 6 11:12:29 Elevated blood-pr essure reading without diagnosi s of hyperten william 749363833 Completed 201101/02/2014 IMPRESSI ON: HIS BP IS PROBABLY UP BECAUSE OF ANXIETY BUT WE WILL LOOK FOR OTHER ETIOLOGI ES AND SEE HIM BACK IN A FEW WEEKS TO RECHECK THIS.; RECORDED 01/09/20 12 8:30AM BY HEMA RUVALCABA ON/ADDEN DUM Yvette Mittal PA-C [address], [place], [address] , [facility] 6 11:12:29 Irritabl e bowel syndrome 93399937 Completed 201101/02/2014 RECORDED 01/09/20 12 8:30AM BY HEMA RUVALCABA ON/ADDEN DUM Yvette Mittal PA-C [address], [place], [address] , [facility] 6 11:12:29 Elevated blood-pr essure reading without diagnosi s of hyperten william 946949615 Completed 201101/03/2014 IMPRESSI ON: HIS BP IS PROBABLY UP BECAUSE OF ANXIETY BUT WE WILL LOOK FOR OTHER ETIOLOGI ES AND SEE HIM BACK IN A FEW WEEKS TO RECHECK THIS.; RECORDED 01/09/20 12 8:30AM BY HEMA RUVALCABA ON/ADDEN DUM Yvette Mittal PA-C [address], [place], [address] , [facility] 6 11:12:29 Irritabl e bowel syndrome 04860799 Completed 201101/03/2014 RECORDED 01/09/20 12 8:30AM BY HEMA RUVALCABA ON/ADDEN DUM Yvette Mittal PA-C [address], [place], [address] , [facility] 6 11:12:29 History of clinical finding in subject 974207024 Completed 201112/31/2013 RECORDED 02/10/20 12 11:56AM BY HEMA RUVALCABA ON/ADDEN DUM Yvette Mittal PA-C [address] [facility] [address], [place], [address] , [facility] 6 11:12:30 Tobacco user [id number] Completed 201112/10/2013 RECORDED 02/10/20 12 11:56AM BY HEMA RUVALCABA ON/ADDEN DUM Yvette Mittal PA-C [address] [facility] [address], [place], [address] , [facility] 6 11:12:29 Acute asthma [id number] Completed 201112/10/2013 IMPRESSI ON: TRIGGERE D BY VIRAL URI. CONTINUE USING ALBUTERO L PRN; RECORDED 02/23/20 12 8:26AM BY ABELARDO HERNANDEZ MA, HEMA ON/ADDEN DUM Yvette Mittal PA-C [address] [facility] [address], [place], [address] , [facility] 6 11:12:29 Acute asthma [id number] Completed 201101/02/2014 IMPRESSI ON: TRIGGERE D BY VIRAL URI. CONTINUE USING ALBUTERO L PRN; RECORDED 02/23/20 12 8:26AM BY ABELARDO HERNANDEZ MA, HEMA ON/ADDEN DUM Yvette Mittal PA-C [address], [place], [address] , [facility] 6 11:12:29 Acute asthma [id number] Completed 201101/03/2014 IMPRESSI ON: TRIGGERE D BY VIRAL URI. CONTINUE USING ALBUTERO L PRN; RECORDED 02/23/20 12 8:26AM BY ABELARDO HERNANDEZ MA, HEMA ON/ADDEN DUM Yvette Mittal PA-C [address], [place], [address] , [facility] 6 11:12:29 Tachycar dustin [id number] Completed 201112/10/2013 IMPRESSI ON: .; RECORDED 02/28/20 12 1:35PM BY XAVIER TAMAYO MA, ANNOTATI ON/ADDEN DUM Yvette Mittal PA-C [address], [place], [address] , [facility] 6 11:12:29 Tachycar dustin 9493792 Completed 201101/02/2014 IMPRESSI ON: .; RECORDED 02/28/20 12 1:35PM BY XAVIER TAMAYO MA, DREADATI ON/ADDEN DUM Yvette Mittal PA-C [address], [place], [address] , [facility] 6 11:12:29 Tachycar dustin [id number] Completed 201101/03/2014 IMPRESSI ON: .; RECORDED 02/28/20 12 1:35PM BY XAVIER TAMAYO MA, HEMA ON/ADDEN DUM Yvette Mittal PA-C [address], [place], [address] , [facility] 6 11:12:29 Examinat ion for suspecte d mental disorder Completed 201112/10/2013 RECORDED 04/24/20 12 2:15PM BY MARILEE MARTINEZ MA, ANNOTATI ON/ADDEN DUM Yvette Mittal PA-C [address], [place], [address] , [facility] 6 11:12:30 Examinat ion for suspecte d mental disorder Completed 201101/02/2014 RECORDED 04/24/20 12 2:15PM BY MARILEE MARTINEZ MA, ANNOTATI ON/ADDEN DUM Yvette Mittal PA-C [address], [place], [address] , [facility] 6 11:12:30 Examinat ion for suspecte d mental disorder Completed 201101/03/2014 RECORDED 04/24/20 12 2:15PM BY MARILEE MARTINEZ MA, HEMA ON/ADDEN DUM Yvette Mittal PA-C [address], [place], [address] , [facility] 6 11:12:30 Adult health examinat ion Completed 201212/10/2013 RECORDED 07/05/19 13 10:29AM BY HEMA RUVALCABA ON/ADDEN DUM Yvette Kyrie PA-C [address], [place], [address] , [facility] 6 11:12:30 Administ ration of diphther ia and tetanus vaccine Completed 201212/10/2013 RECORDED 07/05/19 13 10:29AM BY HEMA RUVALCABA ON/ADDEN DUM Yvette Mittal PA-C [address], [place], [address] , [facility] 6 11:12:30 Exposure to organism Completed 201212/10/2013 RECORDED 07/05/19 13 10:29AM BY DREAD RUVALCABAATI ON/ADDEN DUM Yvette Mittal PA-C [address], [place], [address] , [facility] 6 11:12:30 Adult health examinat ion Completed 201201/02/2014 RECORDED 07/05/19 13 10:29AM BY DREAD RUVALCABAATI ON/ADDEN DUM Yvette Mittal PA-C [address], [place], [address] , [facility] 6 11:12:30 Administ ration of diphther ia and tetanus vaccine Completed 201201/02/2014 RECORDED 07/05/19 13 10:29AM BY DREAD RUVALCABAATI ON/ADDEN DUM Yvette Mittal PA-C [address], [place], [address] , [facility] 6 11:12:30 Exposure to organism Completed 201201/02/2014 RECORDED 07/05/19 13 10:29AM BY HEMA RUVALCABA ON/ADDEN DUM Yvette Mittal PA-C [address] [facility] [address], [place], [address] , [facility] 6 11:12:30 Adult health examinat ion Completed 201201/03/2014 RECORDED 07/05/19 13 10:29AM BY DREAD RUVALCABAATI ON/ADDEN DUM Yvette Mittal PA-C [address], [place], [address] , [facility] 6 11:12:30 Administ ration of diphther ia and tetanus vaccine Completed 201201/03/2014 RECORDED 07/05/19 13 10:29AM BY DREAD RUVALCABAATI ON/ADDEN DUM Yvette Mittal PA-C [address], [place], [address] , [facility] 6 11:12:30 Exposure to organism Completed 201201/03/2014 RECORDED 07/05/19 13 10:29AM BY HEMA RUVALCABA ON/ADDEN DUM Yvette Mittal PA-C [address], [place], [address] , [facility] 6 11:12:30 Respirat ory finding Completed 201212/10/2013 IMPRESSI ON: HIS RESPIRAT ORY SX COULD BE SIMPLY RELATED TO ANXIETY AND PANIC ATTACKS BUT HE HAS BEEN RECEIVIN G TREATMEN T FOR THESE AND HIS SX PERSIST. ; RECORDED 01/10/20 13 11:32AM BY HEMA RUVALCABA ON/ADDEN DUM Yvette Mittal PA-C [address] [facility] [address], [place], [address] , [facility] 6 11:12:30 Respirat ory finding Completed 201201/02/2014 IMPRESSI ON: HIS RESPIRAT ORY SX COULD BE SIMPLY RELATED TO ANXIETY AND PANIC ATTACKS BUT HE HAS BEEN RECEIVIN G TREATMEN T FOR THESE AND HIS SX PERSIST. ; RECORDED 01/10/20 13 11:32AM BY DREAD RUVALCABAATI ON/ADDEN DUM Yvette Mittal PA-C [address], [place], [address] , [facility] 6 11:12:30 Respirat ory finding Completed 201201/03/2014 IMPRESSI ON: HIS RESPIRAT ORY SX COULD BE SIMPLY RELATED TO ANXIETY AND PANIC ATTACKS BUT HE HAS BEEN RECEIVIN G TREATMEN T FOR THESE AND HIS SX PERSIST. ; RECORDED 01/10/20 13 11:32AM BY DREAD RUVALCABAATI ON/ADDEN DUM Yvette Mittal PA-C [address], [place], [address] , [facility] 6 11:12:30 Anxiety state [id number] Completed 201212/10/2013 IMPRESSI ON: ON MEDS BY PSYCH, WILL TALK TO THEM IF STILL FEELING ANXIOUS ON MONDAY; RECORDED 04/10/20 10:23AM BY CHRISTA FRANCIS MA, HEMA ON/YOSEF Mittal PA-C [address] [facility] [address], [place], [address] , [facility] 6 11:12:29 Palpitat ions 51623430 Completed 201212/10/2013 IMPRESSI ON: SOUND BENIGN, MOST LIKELY RELATED TO LOW HYDRATIO N AFTER SURGERYA DN ANXIETY, NL EKG, PT WAS REASSURE D; RECORDED 04/10/20 10:23AM BY CHRISTA FRANCIS MA, HEMA ON/YOSEF Baker MD [address] [address], [place], [address] , [facility] 8 14:46:16 Sleep apnea 85467040 Completed 201212/10/2013 IMPRESSI ON: HEALING FROM RECENT SEPTOPLA STY, SEEMS TO BE HEALING WELL; RECORDED 04/10/20 10:23AM BY CHRISTA FRANCIS MA, HEMA ON/YOSEF Mittal PA-C [address] [facility] [address], [place], [address] , [facility] 6 11:12:29 Anxiety state [id number] Completed 201201/02/2014 IMPRESSI ON: ON MEDS BY PSYCH, WILL TALK TO THEM IF STILL FEELING ANXIOUS ON MONDAY; RECORDED 04/10/20 10:23AM BY CHRISTA FRANCIS MA, HEMA ON/YOSEF Mittal PA-C [address] [facility] [address], [place], [address] , [facility] 6 11:12:29 Palpitat ions 27448542 Completed 201201/02/2014 IMPRESSI ON: SOUND BENIGN, MOST LIKELY RELATED TO LOW HYDRATIO N AFTER SURGERYA DN ANXIETY, NL EKG, PT WAS REASSURE D; RECORDED 04/10/20 13 10:23AM BY CHRISTA FRANCIS MA, HEMA CLARKE/YOSEF Baker MD [address] [facility] [address], [place], [address] , [facility] 8 14:46:16 Sleep apnea 21179927 Completed 201201/02/2014 IMPRESSI ON: HEALING FROM RECENT SEPTOPLA STY, SEEMS TO BE HEALING WELL; RECORDED 04/10/20 13 10:23AM BY CHRISTA FRANCIS MA, HEMA ON/YOSEF Mittal PA-C [address] [facility] [address], [place], [address] , [facility] 6 11:12:29 Anxiety state 263357357 Completed 201201/03/2014 IMPRESSI ON: ON MEDS BY PSYCH, WILL TALK TO THEM IF STILL FEELING ANXIOUS ON MONDAY; RECORDED 04/10/20 13 10:23AM BY CHRISTA FRANCIS MA, HEMA ON/YOSEF Mittal PA-C [address] [facility] [address], [place], [address] , [facility] 6 11:12:29 Palpitat ions 46911581 Completed 201201/03/2014 IMPRESSI ON: SOUND BENIGN, MOST LIKELY RELATED TO LOW HYDRATIO N AFTER SURGERYA DN ANXIETY, NL EKG, PT WAS REASSURE D; RECORDED 04/10/20 13 10:23AM BY CHRISTA FRANCIS MA, HEMA ON/YOSEF Baker MD [address] [facility] [address], [place], [address] , [facility] 8 14:46:16 Sleep apnea 14045326 Completed 201201/03/2014 IMPRESSI ON: HEALING FROM RECENT SEPTOPLA STY, SEEMS TO BE HEALING WELL; RECORDED 04/10/20 13 10:23AM BY CHRISTA FRANCIS MA, HEMA ON/ADDEN DUM Yvette Mittal PA-C [address], [place], [address] , [facility] 6 11:12:29 Immuniza tion refused Completed 201212/10/2013 RECORDED 04/19/20 13 8:55AM BY HEMA RUVALCABA ON/ADDEN DUM Yvette Mittal PA-C [address], [place], [address] , [facility] 6 11:12:30 Increase d frequenc y of urinatio n 727623649 Completed 201212/10/2013 IMPRESSI ON: HE WANTED TO HAVE HIS URINE CHECKED SINCE URINATIN G EVERY HR; RECORDED 04/19/20 13 8:55AM BY HEMA RUVALCABA ON/ADDEN DUM Yvette Mittal PA-C [address] [facility] [address], [place], [address] , [facility] 6 11:12:29 Immuniza tion refused Completed 201201/02/2014 RECORDED 04/19/20 13 8:55AM BY HEMA RUVALCABA ON/ADDEN DUM Yvette Mittal PA-C [address] [facility] [address], [place], [address] , [facility] 6 11:12:30 Increase d frequenc y of urinatio n 512804582 Completed 201201/02/2014 IMPRESSI ON: HE WANTED TO HAVE HIS URINE CHECKED SINCE URINATIN G EVERY HR; RECORDED 04/19/20 13 8:55AM BY HEMA RUVALCABA ON/ADDEN DUM Yvette Mittal PA-C [address] [facility] [address], [place], [address] , [facility] 6 11:12:29 Immuniza tion refused Completed 201201/03/2014 RECORDED 04/19/20 13 8:55AM BY DREAD RUVALCABAATI ON/ADDEN DUM Yvette Mittal PA-C [address], [place], [address] , [facility] 6 11:12:30 Increase d frequenc y of urinatio n 868166588 Completed 201201/03/2014 IMPRESSI ON: HE WANTED TO HAVE HIS URINE CHECKED SINCE URINATIN G EVERY HR; RECORDED 04/19/20 13 8:55AM BY DREAD RUVALCABAATI ON/ADDEN DUM Yvette Mittal PA-C [address], [place], [address] , [facility] 6 11:12:29 Obstruct rylie sleep apnea syndrome 46078623 Completed 201312/10/2013 RECORDED 07/02/19 14 12:40PM BY DREAD RUVALCABAATI ON/ADDEN DUM Yvette Mittal PA-C [address], [place], [address] , [facility] 6 11:12:29 Obstruct rylie sleep apnea syndrome 44293853 Completed 201301/02/2014 RECORDED 07/02/19 14 12:40PM BY DREAD RUVALCABAATI ON/ADDEN DUM Yvette Mittal PA-C [address], [place], [address] , [facility] 6 11:12:29 Obstruct rylie sleep apnea syndrome 09522233 Completed 201301/03/2014 RECORDED 07/02/19 14 12:40PM BY DREAD RUVALCABAATI ON/ADDEN DUM Yvette Mittal PA-C [address], [place], [address] , [facility] 6 11:12:29 Laborato ry procedur e performe d [id number] Completed 201312/10/2013 RECORDED 09/18/19 14 8:19AM BY WEST INGRAM I, ANNOTATI ON/ADDEN DUM Yvette Mittal PA-C [address], [place], [address] , [facility] 6 11:12:30 Disorder of upper respirat ory system Completed 201312/10/2013 RECORDED 09/18/19 14 8:19AM BY WEST INGRAM I, ANNOTATI ON/ADDEN DUM Yvette Mittal PA-C [address], [place], [address] , [facility] 6 11:12:30 Laborato ry procedur e performe d [id number] Completed 201301/02/2014 RECORDED 09/18/19 14 8:19AM BY DREAD RUVALCABAATI ON/ADDEN DUM Yvette Mittal PA-C [address], [place], [address] , [facility] 6 11:12:30 Disorder of upper respirat ory system Completed 201301/02/2014 RECORDED 09/18/19 14 8:19AM BY WEST INGRAM I ANNOTATI ON/ADDEN DUM Yvette Mittal PA-C [address], [place], [address] , [facility] 6 11:12:30 Laborato ry procedur e performe d [id number] Completed 201301/03/2014 RECORDED 09/18/19 14 8:19AM BY WEST INGRAM I ANNOTATI ON/ADDEN DUM Yvette Mittal PA-C [address], [place], [address] , [facility] 6 11:12:30 Disorder of upper respirat ory system Completed 201301/03/2014 RECORDED 09/18/19 14 8:19AM BY WEST INGRAM I, ANNOTATI ON/ADDEN DUM Yvette Mittal PA-C [address], [place], [address] , [facility] 6 11:12:30 Pelon thomas 71244732 Completed 201312/10/2013 RECORDED 09/26/19 14 10:39AM BY HEMA RUVALCABA ON/ADDEN DUM Pasquale Baker MD [address] [facility] [address], [facility] [place], [address] , [facility] 8 14:46:24 Follow-u p encounte r Completed 201312/31/2013 RECORDED 10/11/19 14 9:52AM BY WEST INGRAM I TRANSITI ON OF CARE Yvettevilma VIEIRA-C [address] [facility] [address], [place], [address] , [facility] 6 11:12:30 Dyspnea 207970890 Completed 201301/02/2014 IMPRESSI ON: THIS IS PROBABLY FROM HIS UNDERLYI NG ANXIETY. I ASSURED HIM THAT THERE IS NO MEDICAL REASON FOR HIS SOB AND NO NEED FOR FURTHER W/U. I ALSO EXPLAINE D TO HIM THAT IT IS IMPOSSIB LE FOR HIM TO STOP BREATHIN G AND NOT START UP AGAIN.; RECORDED 11/12/19 14 8:42AM BY HEMA RUVALCABA ON/ADDEN DUM Yvettevilma VIEIRA-C [address] [facility] [address], [place], [address] , [facility] 6 11:12:29 Dyspnea 900491039 Completed 201301/03/2014 IMPRESSI ON: THIS IS PROBABLY FROM HIS UNDERLYI NG ANXIETY. I ASSURED HIM THAT THERE IS NO MEDICAL REASON FOR HIS SOB AND NO NEED FOR FURTHER W/U. I ALSO EXPLAINE D TO HIM THAT IT IS IMPOSSIB LE FOR HIM TO STOP BREATHIN G AND NOT START UP AGAIN.; RECORDED 11/12/19 14 8:42AM BY HEMA RUVALCABA ON/ADDEN DUM Yvettebossman Mittal PA-C [address] [facility] [address], [place], [address] , [facility] 6 11:12:29 Laborato issac diamond e dragane d [id number] Completed 201301/16/2014 RECORDED 11/13/19 14 1:39PM BY FABRIZIO CONNORS, LAB REQ Yvette Mittal PA-C [address] [facility] [address], [place], [address] , [facility] 6 11:12:30 Single major depressi ve episode Completed 201301/16/2014 IMPRESSI ON: WILL RESTART HIS ZOLOFT AT 100 MG INSTEAD 150 AND HE WILL DISCUSS TREATMEN T FURTHER WITH HIS PSYCHIAT RIST ON Apr.; RECORDED 11/27/19 14 12:54PM BY SMITH CARLISLE, OFFICE VISIT Yvette Mittal PA-C [address] [facility] [address], [place], [address] , [facility] 6 11:12:29 Essentia l hyperten william [id number] Completed 201301/16/2014 IMPRESSI ON: BYSTOLIC MAY BE COVERED NOW WITH HIS NEW INSURANC E. WILL SEE IF THIS IMPROVES HIS FATIGUE. F/U 2-3 WKS; RECORDED 11/27/19 14 12:54PM BY SMITH CARLISLE, OFFICE VISIT Pasquale Baker MD [address] [facility] [address], [place], [address] , [facility] 8 14:46:24 Tobacco user [id number] Completed 201301/16/2014 RECORDED 11/27/19 14 1:05PM BY SMITH CARLILSE, OFFICE VISIT Yvette Mittal PA-C [address] [facility] [address], [place], [address] , [facility] 6 11:12:29 Respirat ory finding Completed 201301/16/2014 IMPRESSI ON: HE WAS INSTRUCT ED TO WEAN FROM HIS BYSTIOLI C TO SEE IF THIS IS CAUSING HIS DEE. HE WILL ALSO STOP THE FLOVENT SINCE THAT HASN'T BEEN HELPING. ; RECORDED 11/27/19 14 1:31PM BY PASQUALE OCHOA MD, OFFICE VISIT Yvette Mittal PA-C [address] [facility] [address], [place], [address] , [facility] 6 11:12:30 Hyperlip idemia 46449554 Active 2016 Maria Del Rosario thurman, [facility] 9 09:14:48 Primary erectile dysfunct ion 421119015 Active 2016 Maria Del Rosario thurman, [facility] 9 09:14:48 Palpitat ions 59858253 Active 2017 Maria Del Rosario thurman, [facility] 9 09:14:48 Essentia l hyperten william 09671606 Active 2017 [facility] 09:14:48 History of methicil bobby resistan t Staphylo coccus aureus infectio n 815038131 Completed 201703/07/2018 [facility] 8 13:51:31 Harmful pattern of use of alcohol 22287679 Active 2018 Luis F Connors MD [address] [facility] [address], [place], [address] , [facility] 9 11:51:05 Severe major depressi on with psychoti c features 31581544 Active 2019 Valentina thurman, [facility] 0 15:00:23 Alcohol dependen ce 02343279 Active 2019 Last drink was 11/30/24 Pasquale Baker MD [address] [facility] [address], [place], [address] , [facility] 5 07:46:54 Severe obesity 59594194990 104 Active 2020 Tanvir Adkins MD [facility] 1 13:18:02 Sprain of right ankle 58015993454 078016 Active 2021 Seen at [facility]. Pasquale Baker MD [address] [facility] [address], [place], [address] , [facility] 2 19:57:19 Liver enzymes level above referenc e range 916724416 Active 2021 Pasquale Baker MD [address] [facility] [address], [place], [address] , [facility] 2 15:39:41 COVID-19 862935815 Completed 202103/31/2023 UBALDO OLIVEIRA MD [address] [address], [place], [address] , [facility] 3 07:55:11 Influenz a caused by Influenz a A virus 197527949 Active 2022 Pasquale Baker MD [address] [facility] [address], [place], [address] , [facility] 3 08:07:22 Bipolar I disorder 763676113 Active 2022 Pasquale Baker MD [address] [facility] [address], [place], [address] , [facility] 3 18:19:44 Obsessiv e-compul sive disorder 296476444 Active 2022 Pasquale Baker MD [address] [facility] [address], [place], [address] , [facility] 3 18:19:57 Fever 027080094 Active 2022 Anabelle Uribe [facility] [address] [facility] [address], [place], [address] , [facility] 3 15:47:35 Viral syndrome 759727425 Active 2022 AIDAN Kessler [address] [facility] [address], [place], [address] , [facility] 3 16:04:12 Acne 90962924 Active 2022 Yvette Mittal PA-C [address] [facility] [address], [place], [address] , [facility] 3 09:11:20 Cirrhosi s of liver 02211444 Active [address] Petra Baker MD [address] [address], [place], [address] , [facility] 3 08:54:27 History of psychiat natanael disorder 926396699 Active 2024 This has been a recurren t problem for him requirin g multiple admissio ns sometime s for extended periods. Pasquale Baker MD [address] [address], [place], [address] , [facility] 5 07:46:57 Suicide attempt Active 2024 Tried to hang himself while living in a shelter on 03/24/25 . He was admitted to [facility] on 04/03/25. Pasquale Baker MD [address] [address], [place], [address] , [facility] 5 07:56:10 Problem Notes None recorded. Procedures Surgical History Date Name Laterality Status Provider Name and Address Organization Details Recorded Time 0 Suture/Stapl e removal completed Jerome Mittal PA-C [address] [address], [place], [address], [facility] 04/20/2020 10:20:08 6 Mini-Cog Test completed [place] [facility] 12/14/2015 14:56:52 3 Repair of nasal septum completed Radha Odonnell MA [facility] 10/06/2014 09:06:57 Imaging Results None recorded. Procedure Notes None recorded. Medical Equipment None Reported. Allergies Allergen ID Allergen Name Allergen Category Reaction Reaction Severity Criticality Documentation Date Start Date Code Code System Note Provider Name and Address Organization Details Recorded Time 34230 Bactrim medicatio n rash moderate Not available 06/22/2017 90131 9 [facility] 8 09:54:55 61106 Substance with sulfonami de structure and antibacte rial mechanism of action (substanc e) medicatio n rash Not available Not available 12/27/2019 70233 8003 SNOMED [place] [facility] 0 09:26:43 66249 Remeron medicatio n palpitati ons tachycard ia Not available Not available Not available 12/27/2019 50029 4 RxNorm [place] [facility] 0 09:27:05 Medications Name Sig Start Date Stop Date Status Note LastModified by Organization Details LastModified Time doxycycli ne hyclate 100 mg caps 12/26 completed Not Available Not [...] Not Available Not Available Not Avai lable lamotrigi ne 200 mg tablet TAKE 1 [...] completed RECORDED 05/14/20 13 12:22PM BY ISHA ROCKWELL, PHONE ENCOUNTE R; Not Available Not Available [...] 2013 active RECORDED 09/18/19 14 4:26PM BY PASQUALE OCHOA MD, OFFICE VISIT; Not Available Not [...] 03/06 completed RECORDED 04/20/20 10 8:20AM BY PASQUALE OCHOA MD, MEDICATI ON AUTO-REUBEN CTIVATIO N; [...] 1 TABLET BY MOUTH TWICE A DAY 09/20 completed Not Available Not Available Not [...] completed RECORDED 06/18/19 14 10:40AM BY ISHA ROCKWELL, OFFICE VISIT;62 .5 MG Not Available Not [...] active RECORDED 05/13/20 13 2:47PM BY ISHA ROCKWELL, ANNOTATI ON/YOSEF WOLFE; Not Available Not Available Not Available Ambien [...] 08/13 completed RECORDED 03/24/20 11 11:21AM BY BEULAH VINCENT PA-C, MEDICATI ON AUTO-REUBEN CTIVATIO N; [...] 09/07 completed RECORDED 09/20/19 12 9:20AM BY BEULAH VINCENT PA-C, MEDICATI ON AUTO-REUBEN CTIVATIO N; [...] Not Available Not Available Not Available Vitals Date Recorded Body height Body mass index (BMI) Body weight Heart rate Oxygen saturation Body temperature Systolic And Diastolic Provider Name and Address Organization Details Last Updated DateTime 5 184.15 cm 34.6 kg/m2 208896. 42 g 57 /min 95 % 97.6 [degF] 105/69 mm[Hg] Aarti Kincaid [facility] 5 11:20:41 Date Recorded Body height Body mass index (BMI) Body weight Heart rate Oxygen saturation Body temperature Systolic And Diastolic Provider Name and Address Organization Details Last Updated DateTime 5 184.15 cm 34 kg/m2 479310. 46 g 70 /min 97 % 98 [degF] 113/74 mm[Hg] Beulah Florez MA [facility] 5 09:10:56 Social History Question Answer Notes LastModified by Organizat ion Details LastModified Time Tobacco Smoking Status Current Every Day Smoker quit 04/23/22 06/21/23 started back 2 days ago [place] [facility] 06/21/2023 10:36:25 Do You Have An Advance Directive? Yes [id number] Information not available 03/31/2020 Is Blood Transfusion Acceptable In An Emergency? Yes [id number] Information not available 03/31/2020 What Is Your Level Of Caffeine Consumption? Moderate Coffee- 2 Daily Information not available 06/21/2023 How Much Tobacco Do You Chew? None [id number] Information not available 03/31/2020 What Type Of Diet Are You Following? REGULAR Information not available 06/21/2023 Which Illicit Or Recreational Drugs Have You Used? None [id number] Information not available 03/31/2020 Are There Any Guns Present In Your Home? No [id number] Information not available 03/31/2020 Live Alone Or With Others? Alone Information not available 06/21/2023 Do You Take Precautions To Prevent Distracted Driving? Yes Sent[employer] Information not available 04/30/2015 How Often Do You Need To Have Someone Help You When You Read Instructions, Pamphlets, Or Other Written Material From Your Doctor Or Pharmacy? Never [employer] Information not available 04/30/2015 Have You Served In The ? No [employer] Information not available 10/28/2016 Have You Or [...] Gathering In The Last 10 Days? No [email or web address] Information not available 06/29/2020 What Was The Date Of Your Most Recent Tobacco Screening? 09/21/2023 [email or web address] Information not available 09/21/2023 How Many Children Do You Have? 0 [id number] Information not available 03/31/2020 What Is Your Current Pack Years? 30ormorepack years Information not available 06/21/2023 Do You Use Protection During Sex? Usually [id number] Information not available 03/31/2020 Seat Belts Used Routinely Yes Information not available 04/30/2015 Are You Sexually Active? No [id number] Information not available 03/31/2020 Smoke Alarm In Home Yes Information not available 04/30/2015 At What Age Did You Start Smoking Tobacco? 18 Information not available 03/25/2020 Are You Passively Exposed To Smoke? Yes Information not available 03/25/2020 How Much Tobacco Do You Smoke? 0.5 PPD Information not available 03/25/2020 General Stress Level High Information not available 01/01/2014 Do You Use Sunscreen Routinely? Yes [id number] Information not available 03/31/2020 How Many Years [...] used smokeless tobacco? Never used smokeless tobacco [id number] Information not available 03/31/2020 Are you currently employed? No disabled; seconadry to mental health issues. Information not available 06/24/2023 Are you able to walk independently without assistance or assistive devices? YESWOREST Information not available 06/21/2023 Are you able to care for yourself independently? Yes sister (Lidia Mcconnell) [id number] Information not available 03/31/2020 What is your [...] Time pneumococcal polysaccharide PPV23 9 completed RUBÉN Rick, [facility] 12/22/2021 13:26:56 Influenza, split virus, trivalent, preservative 0 completed RUBÉN José, [facility] 03/25/2020 13:05:19 tetanus toxoid, unspecified formulation 0 completed Jerome Mittal PA-C [address] [address], [place], [address], [facility] 04/20/2020 09:57:18 COVID-19, mRNA, LNP-S, PF, 30 mcg/0.3 mL dose 1 completed RUBÉN Rick, [facility] 12/22/2021 13:26:56 COVID-19, mRNA, LNP-S, PF, 30 mcg/0.3 mL dose 1 completed Beulah Florez RUBÉN cuca, [facility] 12/22/2021 13:26:57 Influenza, split virus, quadrivalent, PF 5 completed Beulah Florez RUBÉN cuca, [facility] 12/22/2021 13:26:56 Influenza, split virus, quadrivalent, PF 6 completed Beulah Florez RUBÉN null, [facility] 12/22/2021 13:26:56 Influenza, split virus, quadrivalent, PF 8 completed Beulah Florez RUBÉN cuca, [facility] 12/22/2021 13:26:56 Influenza, split virus, quadrivalent, PF 7 completed Beulah Florez RUBÉN cuca, [facility] 12/22/2021 13:26:56 Influenza, split virus, quadrivalent, PF 1 completed Beulah Florez RUBÉN cuca, [facility] 12/22/2021 13:26:57 Influenza, split virus, trivalent, PF 4 completed Beulah Florez RUBÉN cuca, [facility] 12/22/2021 13:26:57 COVID-19, mRNA, LNP-S, PF, 30 mcg/0.3 mL dose 1 completed Beulah Florez RUBÉN cuca, [facility] 12/22/2021 13:26:57 Tdap 0 completed RUBÉN Rick, [facility] 12/22/2021 13:26:57 Influenza, split virus, quadrivalent, PF 9 completed RUBÉN Rick, [facility] 12/22/2021 13:26:57 Influenza, split virus, quadrivalent, PF 3 completed Disha Hurt LPN null, [facility] 03/31/2023 11:07:57 Hep B, adolescent or pediatric 8 completed Not Available [facility] 06/22/2023 14:06:24 Hep B, adolescent or pediatric 8 completed Maria Del Rosarioluca thurman, [facility] 07/09/2018 09:14:42 Hep B, adolescent or pediatric 8 completed Maria Del Rosario Connors null, [facility] 07/09/2018 09:14:42 Td (adult), 2 Lf tetanus toxoid, preservative free, adsorbed 6 completed Maria Del Rosarioluca thurman, [facility] 07/09/2018 09:14:42 Tdap 2 completed Maria Del Rosario thurman, [facility] 07/09/2018 09:14:42 Influenza, split virus, trivalent, preservative 3 completed RUBÉN Rick, [facility] 12/22/2021 13:26:57 Influenza, split virus, trivalent, PF 4 completed Pasquale Baker MD [address], [address], [facility] 04/06/2024 08:27:21 Influenza, split virus, trivalent, PF 5 completed RUBÉN Rick, [facility] 02/13/2025 09:22:16 Past Encounters Encounter ID Performer Location Encounter Start Date Encounter Closed Date Diagnosis/Indication Diagnosis SNOMED-CT Code Diagnosis ICD10 Code Diagnosis IMO Codes Diagnosis Note [id number] Pasquale Baker MD Main Office [address] [address] 12/31/2013 11:21:23 12/31/2013 12:01:57 Malaise and fatigue [id number] This may be related to his meds. I called his mental health counselor and spoke to her about this issue. He will be seeing his psych provider, Amanda Crum at [facility] tomorrow. Panic diso rder without agoraphobia [id number] on meds which do not seem to be helping much with his symptoms Major depr essive disorder [id number] was hospitaliz ed, had ECT done 5 times and meds were adjusted but this did not help with his symptoms. Palpitations 73760709 on a beta rehan. Has already had an extensive cardiac w/u which was negative. [id number] autoEComm erce [address] [facility] [place] [address] 01/18/2006 00:00:00 [id number] autoEComm erce [address] [facility],[address] [place] [address] 01/13/2006 00:00:00 [id number] autoEComm erce [address] [facility],[address] [place] [address] 10/11/2005 00:00:00 [id number] autoEComm erce [address] [facility],[address] [place] [address] 08/18/2006 00:00:00 [id number] autoEComm erce [address] [facility],[address] [place] [address] 10/27/2006 00:00:00 [id number] autoEComm erce [address] [facility],[address] [place] [address] 12/15/2006 00:00:00 [id number] autoEComm erce [address] [facility],[address] [place] [address] 01/03/2007 00:00:00 [id number] autoEComm erce [address] [facility],[address] [place] [address] 02/23/2007 00:00:00 [id number] autoEComm erce [address] [facility],[address] [place] [address] 08/21/2007 00:00:00 [id number] autoEComm erce [address] [facility],[address] [place] [address] 10/31/2007 00:00:00 [id number] autoEComm erce [address] [place] [address] 02/11/2008 00:00:00 [id number]Comm [address] [place] [address] 03/11/2008 00:00:00 [id number] autoEComm erce [address] [facility] [address] [place] [address] 09/22/2008 00:00:00 [id number] autoEComm erce [address] [place] [address] 03/26/2009 00:00:00 [id number] autoEComm erce [address] [facility] [address] [place] [address] 07/06/2009 00:00:00 [id number] autoEComm erce [address] [facility],[address] [place] [address] 02/24/2010 00:00:00 [id number] autoEComm erce [address] [facility],[address] [place] [address] 08/06/2010 00:00:00 [id number] autoEComm erce [address] [facility],[address] [place] [address] 03/24/2011 00:00:00 [id number] autoEComm erce [address] [facility],[address] [place] [address] 04/13/2011 00:00:00 [id number] autoEComm erce [address] [facility],[address] [place] [address] 08/29/2011 00:00:00 [id number] autoEComm erce [address] [facility],[address] [place] [address] 08/31/2011 00:00:00 [id number] autoEComm erce [address] [facility],[address] [place] [address] 09/20/2011 00:00:00 [id number] autoEComm erce [address] [facility],[address] [place] [address] 10/31/2011 00:00:00 [id number] autoEComm erce [address] [place] [address] 12/05/2011 00:00:00 [id number] autoEComm erce [address] [place] [address] 01/09/2012 00:00:00 [id number] autoEComm erce [address] [place] [address] 02/06/2012 00:00:00 [id number] autoEComm erce [address] [place] [address] 02/10/2012 00:00:00 [id number] autoEComm erce [address] [place] [address] 02/23/2012 00:00:00 [id number] autoEComm erce [address] [facility],[address] [place] [address] 02/28/2012 00:00:00 [id number] autoEComm erce [address] [facility],[address] [place] [address] 03/03/2012 00:00:00 [id number] autoEComm erce [address] [facility] [address] [place] [address] 04/25/2012 00:00:00 [id number] autoEComm erce [address] [facility],[address] [place] [address] 05/02/2012 00:00:00 [id number] autoEComm erce [address] [facility],[address] [place] [address] 07/05/2012 00:00:00 [id number] autoEComm erce [address] [facility],[address] [place] [address] 07/24/2012 00:00:00 [id number] autoEComm erce [address] [facility],[address] [place] [address] 08/07/2012 00:00:00 [id number] autoEComm erce [address] [facility],[address] [place] [address] 09/11/2012 00:00:00 [id number] autoEComm erce [address] [place] [address] 12/12/2012 00:00:00 [id number] autoEComm erce [address] [place] [address] 12/24/2012 00:00:00 [id number] autoEComm erce [address] [place] [address] 01/09/2013 00:00:00 [id number] autoEComm erce [address] [facility] [address] [place] [address] 03/30/2013 00:00:00 [id number] autoEComm erce [address] [facility] [address] [place] [address] 04/01/2013 00:00:00 [id number] autoEComm erce [address] [facility],[address] [place] [address] 04/10/2013 00:00:00 [id number] autoEComm erce [address] [facility],[address] [place] [address] 04/19/2013 00:00:00 [id number] autoEComm erce [address] [facility],[address] [place] [address] 05/13/2013 00:00:00 [id number] autoEComm erce [address] [facility],[address] [place] [address] 06/04/2013 00:00:00 [id number] autoEComm erce [address] [facility],[address] [place] [address] 06/18/2013 00:00:00 [id number] autoEComm erce [address] [facility] [address] [place] [address] 07/02/2013 00:00:00 [id number] autoEComm erce [address] [facility],[address] [place] [address] 07/29/2013 00:00:00 [id number] autoEComm erce [address] [place] [address] 09/17/2013 00:00:00 [id number] autoEComm erce [address] [facility],[address] [place], [place] [address] 09/25/2013 00:00:00 [id number] autoEComm erce [address] [facility] [place], [place] [address] 11/11/2013 00:00:00 [id number] autoEComm erce [address] [facility] [place], [place] [address] 11/26/2013 00:00:00 [id number] Pasquale Baker MD Main Office [address] [facility] [address] [place] [address] 01/15/2014 14:06:25 01/15/2014 14:37:54 Dyspnea 307486358 this is probably multifacto rial and related to his weight gain, his anxiety and possibly to his beta rehan. He will hold the beta rehan for now to see if this helps. He will also try to lose weight and if he is unsuccessf ul we will do a referral. Obesity 061441808 [id number] Pasquale Baker MD Main Office [address] [facility] [address] [place] [address] 02/20/2014 11:27:58 02/20/2014 12:19:37 Body mass index 30+ - obesity 952520518 he lost 5 lbs over the past month and will continue to loss more with portion control and walking for exercise. Dyspnea 663297977 this is probably multifacto rial and related to his weight gain, and his anxiety. He stopped his beta rehan for a while but there was no difference in his dyspnea and his palpitatio ns increased. We discussed she a specialist for weight loss but he feels that he is doing well on his own. Palpitations 51831725 on a beta rehan. Has already had an extensive cardiac w/u which was negative. Sees a cardilollo gist; no further w/u needed. [id number] Pasquale Baker MD Main Office [address] [facility] [address] [place] [address] 04/01/2014 12:41:24 04/01/2014 13:32:41 Palpitations 74692951 on a beta rehan. Has already had an extensive cardiac w/u which was negative. Sees a cardilollo gist; no further w/u needed. Needs infl uenza immunization [id number] Pasquale Baker MD Main Office [address] [facility] [address] [facility] [place] [address] 04/29/2014 13:49:43 04/29/2014 14:39:58 Adult health examination 082356687 Body mass index 30+ - obesity 578773226 he lost 5 lbs over the past month and will continue to loss more with portion control and walking for exercise. Major depr essive disorder 360717708 was hospitaliz ed, had ECT done 5 times and meds were adjusted but this did not help with his symptoms. He is followed by psych and meds are continuall y being adjusted. Asthma [id number] [id number] Pasquale Baker MD Main Office [address] [facility] [address] [facility] [place] [address] 05/15/2014 10:35:18 05/15/2014 11:22:03 Palpitations 43868530 on a beta rehan. Has already had an extensive cardiac w/u which was negative. Sees a cardilollo gist; no further w/u needed. No changes made. He was given a note to refer to when he gets anxious about his heart being healthy and palpatatio ns and skipped beats being normal. Major depr essive disorder 259031690 was hospitaliz ed, had ECT done 5 times and meds were adjusted but this did not help with his symptoms. He is followed by psych and meds are continuall y being adjusted. Dyspnea 202487637 this is probably multifacto rial and related to his weight gain, and his anxiety. He stopped his beta rehan for a while but there was no difference in his dyspnea and his palpitatio ns increased. He is trying to increase his exercise (walking) and to lose weight. [id number] Pasquale Baker MD Main Office [address] [facility] [address] [place] [place] [place] [address] 06/03/2014 11:29:07 06/03/2014 12:05:56 Palpitations 42740377 on a beta rehan. Has already had an extensive cardiac w/u which was negative. Had had 3 normal ECHO's and 2 normal holters done in the past 2-3 years so a further w/u is not warranted. He has a f/u with his cardiologi st next week and I will call and speak to him about his visit today. [id number] Pasquale Baker MD Main Office [address] [facility] [address] [place] [address] 07/02/2014 08:51:12 07/02/2014 09:39:51 Tachycardia 4653619 this appears to be physiologi kimo and secondary to deconditio vandana. He was reassured and no w/u necessary. [id number] AIDAN Rockwell Main Office [address] [facility] [address] [place] [address] 07/22/2014 08:43:09 07/22/2014 09:17:45 Dyspnea 037444244 deconditio vandana obesity vs anxiety vs asthma vs beta rehan worsening his asthma Asthma 942339131 PFTs will see if his asthma is active and contributi ng to his dyspnea Palpitations 63945754 conc shena that these might get worse off the beta blockers. he has had multiple hospitaliz ations due to this. if palpitatio ns worsen he will restart beta rehan. can stay off for now to see if improves [id number] Pasquale Baker MD Main Office [address] [facility] [address] [place] [address] 09/03/2014 09:54:13 09/03/2014 10:48:17 Ankle edema 84356700 this is unlikely to be related to a serious etiology and is probably secondary to salt use and weight gain. We will check labs to r/o other etiologies . [id number] AIDAN Rockwell Main Office [address] [facility] [address] [place] [address] 10/06/2014 08:57:40 10/06/2014 09:46:15 Acute low back pain 383355559 likely strain from startiing exercise regimen. I did encourage him to continue exercising . he is reassured that this is not from his kidneys Palpitations 32194910 he n otices increased heart rate when exercising . this has been a chronic fear of his. I encouraged him to keep exercising even if he feels it. he has had an extensive cardio workup that has been normal [id number] Castillo Chester MD Main Office [address] [address] [place] [address] 10/10/2014 10:53:16 10/10/2014 11:44:47 Palpitations 42656306 [id number] AIDAN Kessler Main Office [address] [address] [place] [address] 10/16/2014 10:37:21 10/16/2014 11:10:23 Abdominal pain 87131455 Reassuranc e provided to pt, he has lost 9lbs in 2 months, is walking 1 mile daily and doing 20 sit-up daily without taking breaks in between, his pain is likely muscular as he has no other symptoms- denies N/V/D, fever, constipati on, urinary sx. He may want to do sit-ups for 3 days, take 1 day break and then do another 3 days or he can continue daily- his body will adjust. May try Tylenol or ibuprofen as needed. If pain worsens, you develop stomach upset, fever, chills, N/V/D or constipati on please return. Acute low back pain 354989597 low back pain comes around to front of abdomen bilaterall y. He had normal urine dip, urinalysis and culture 10/08/14, likely due to his new exercise regimen. He may try Tylenol or ibuprofen as needed for pain to see if this helps. [id number] Pasquale Baker MD Main Office [address] [address] [place] [address] 10/22/2014 11:25:59 10/22/2014 11:56:23 Abdominal pain 56085110 this appears to be muscular and could be secondary to increased activity (sit ups and kayaking) over the past month. He will try NSAIDs and f/u next week. [id number] Pasquale Baker MD Main Office [address] [address] [place] [address] 10/30/2014 12:36:55 10/30/2014 13:19:03 Abdominal pain 19882404 these have resolved and were probably muscular which started after he started doing sit-ups and now are gone since he has become accustomed to them. Palpitations 79224458 on a beta rehan. Has already had an extensive cardiac w/u which was negative. Had had 3 normal ECHO's and 2 normal holters done in the past 2-3 years so a further w/u is not warranted. He understand s that these are related to anxiety/ad renaline and do not indicate heart disease. [id number] Pasquale Baker MD Main Office [address] [facility] [address] [facility] [place] [address] 11/11/2014 11:22:18 11/11/2014 12:00:09 Palpitations 16855074 on a beta rehan. Has already had an extensive cardiac w/u which was negative. Had had 3 normal ECHO's and 2 normal holters done in the past 2-3 years so a further w/u is not warranted. He understand s that these are related to anxiety/ad renaline and do not indicate heart disease. He discussed going up on the med but I advised against this since his BP is already on the low side and he may get problems with low BP. I advised him to stop checking his pulse and BP. Major depr essive disorder 589881363 was hospitaliz ed, had ECT done 5 times and meds were adjusted but this did not help with his symptoms. He is followed by psych and meds are continuall y being adjusted. [id number] Pasquale Baker MD Main Office [address] [place] [address] 11/20/2014 15:19:45 11/20/2014 15:50:40 Paronychia of toe 446581768 [id number] Pasquale Baker MD Main Office [address] [place] [address] 01/20/2015 11:21:31 01/20/2015 12:04:57 Palpitations 13689971 on a beta rehan. Has already had an extensive cardiac w/u which was negative. Had had 3 normal ECHO's and 2 normal holters done in the past 2-3 years so a further w/u is not warranted. He understand s that these are related to anxiety/ad renaline and do not indicate heart disease. His bystolic is no longer working as well as it did so we will change him to another beta rehan. I spoke to Dr Morgan and we will start him on atenolol 25 daily and may increase to 50 mg daily. [id number] AIDAN Kessler Main Office [address] [place] [address] 03/19/2015 14:18:52 03/19/2015 14:48:28 Insomnia 187069202 G47.00 Worse in the last week due to weaning off zyprexa. He is very concerned that gabapentin will not work well for him. Reassuranc e provided and patient encouraged to try med, sleep hygiene discussed, F/u at [facility] in 2 months. Major depr essive disorder 442898227 F32.9 Compliant with medication s, weaning off zyprexa currently. [id number] Pasquale Baker MD Main Office [address] [place] [address] 04/30/2015 14:14:29 04/30/2015 15:20:43 Adult health examination 832566555 Z00.00 Dyspnea 790942307 R06.00 this is probably multifacto rial and related to his weight gain, and his anxiety. He stopped his beta rehan for a while but there was no difference in his dyspnea and his palpitatio ns increased. He is trying to increase his exercise (walking) and to lose weight. Body mass index 30+ - obesity 756983839 Z68.32 he continues to exercise. He is hoping to stop the olanzapine since this promotes weight gain. We have prescribed lunesta in its place. Pure hypercholesterolemia 237780017 E78.0 Insomnia 807580670 G47.0 0 [id number] Yvette Kyrie SIERRA Main Office [address] [place] [address] 08/03/2015 10:17:41 08/03/2015 11:10:34 Chronic constipation 769729578 K59.00 Constipati on. R/o organic disease such as hypothyroi d. Most likely related to IBS . Refer to the GI. Pt. tried all OTC meds except for Milk of Mag. Weight gain 9483460 R63. 5 Related to Zyprexa. Test TFTs. PT. also missed metabolic labs from PCP . Will have lipids and CMP done. Recommend to continue daily 30-40 min exercise activity and low kimo diet. [id number] Pasquale Baker MD Main Office [address] [address] [place] [address] 12/14/2015 14:36:22 12/14/2015 15:38:51 Insomnia 365745373 G47.00 he wants to take trazodone but understand s that this is not safe while he is taking the prozac. He will try neurontin 600 mg since her tried 300 mg in the past w/o much help. Recurrent depression 191 016143 F33.9 was hospitaliz ed, had ECT done 5 times and meds were adjusted but this did not help with his symptoms. He is followed by psych and meds are continuall y being adjusted.. He now wants to stop his meds because he feels they are not helping and has stopped his zyprexa on his own. I had him sign a release and I will speak to his therapist about getting another psych provider and encouragin g him to continue with his needs until he can be weaned by a mental provider. [id number] Pasquale Baker MD Main Office [address] [address] [place] [address] 03/01/2016 09:25:46 03/01/2016 10:07:19 Chronic constipation 605573890 K59.00 He has been taking ducolax and metamucil. He has used mag citrate in the past with good effect. He will try this again and call if the problem persists. Needs infl uenza immunization 923735598 Z23 [id number] AIDAN Kessler Main Office [address] [address] [place] [address] 05/19/2016 13:57:39 05/19/2016 15:03:30 Upper respiratory infection 44876675 J06.9 Sx treatment, inhaler as needed, robitussin as needed, cough drops, hydration, rest Acute sinusitis 18679609 J01.90 sx treatment, sinus rinses as needed. [id number] Pasquale Baker MD Main Office [address] [address] [place] [address] 05/25/2016 12:40:21 05/25/2016 13:25:02 Asthma 072709460 J45.909 He was advised to use his proair 30 minutes before exercise and we will start a steroid inhaler for him to use on a regular basis. [id number] Marlene juárez MD Main Office [address] [address] 07/22/2016 10:13:17 07/22/2016 10:49:58 Acute pharyngitis 249482996 J02.9 negative quick strep, exposure to strep send cx but willt x with amox due to OM so will be covered Otitis media 35829554 H6 6.92 left OM, treat as below, tylenol for pain due to hx of creatinine 1.3 on many meds for mental illness [id number] Pasquale Baker MD Main Office [address] [address] 08/23/2016 12:40:40 08/23/2016 13:47:01 Recurrent depression 464924741 F33.9 was hospitaliz ed, had ECT done 5 times and meds are often adjusted and managed by psychiatry Cough 28543890 R05 [id number] Pasquale Baker MD Main Office [address] [address] 10/28/2016 10:57:23 10/28/2016 12:06:42 Adult health examination 898061042 Z00.00 UTD with immunizati ons Asthma 584941069 J45.90 9 He was advised to use his proair 30 minutes before exercise and we will start a steroid inhaler for him to use on a regular basis. Hyperlipidemia 54391776 E78.5 Impacted c erumen in left ear [id number] 272731 H61.22 [id number] AIDAN Kessler Main Office [address] [address] 11/11/2016 14:06:53 11/11/2016 14:32:32 Eustachian tube disorder 51441459 H69.91 flonase daily as directed, may take some time for sx to resolve, call/ return for worsening pain, fever [id number] AIDAN Kessler Main Office [address] [address] [place] [address] 11/18/2016 14:53:18 11/18/2016 15:11:25 Eustachian tube disorder 23498663 H69.91 TM now retracted, no fluid, no evidence of infection. Stop flonase may take some time for sx to resolve, call/ return for worsening pain, fever. 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 [id number] Pasquale Baker MD Main Office [address] [address] [place] [address] 02/27/2017 10:59:56 02/27/2017 11:44:46 Asthma 129775849 J45.909 Will try a controller inhaler to see if this helps with his breathing. Needs infl uenza immunization 277895507 Z23 Allergic rhinitis 023176 04 J30.9 This may be a trigger for his asthma so will treat with nasl steroid and anti-hista mine. [id number] Pasquale Baker MD Main Office [address] [address] [place] [address] 03/21/2017 13:21:22 03/21/2017 14:00:52 Asthma 937294611 J45.909 He will restart his advair. No need for prednisone at this time Acute sinusitis 68660230 J01.90 Tachycardia 9119092 R00. 0 [id number] Pasquale Baker MD Main Office [address] [address] [place] [address] 06/19/2017 09:55:16 06/19/2017 10:55:15 Infection of ear lobe 40940458 H60.8X9 Right-side d infection. Advised tylenol extra strength for pain. Call if 3-4 days if it is not improving. [id number] Pasquale Baker MD Main Office [address] [address] [place] [address] 06/22/2017 09:39:11 06/22/2017 10:47:26 Cellulitis 747909894 L03.012 Will use a med to cover a dog bite. D/c bactrim because of rash. Tinea cruris 538419162 B 35.6 This may actually be a reaction to the bactrim. 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 [id number] Pasquale Baker MD Main Office [address] [address] [place] [address] 07/20/2017 13:45:18 07/20/2017 14:59:51 Tachycardia 2132259 R00.0 Essential hypertension 25360891 I10 Palpitations 10758571 R0 0.2 Asthma 925682654 J45.90 9 Advair and proair no longer covered. [id number] Pasquale Baker MD Main Office [address] [address] [place] [address] 10/30/2017 13:03:35 10/30/2017 13:56:53 Adult health examination 485580747 Z00.00 UTD with immunizati ons Recurrent depression 191 331804 F33.9 was hospitaliz ed, had ECT done 5 times about 2-3 years ago and meds are often adjusted and managed by psychiatry Asthma 441747005 J45.90 9 Advair and proair no longer covered. Tachycardia 9359105 R00. 0 Controlled with meds [id number] Pasquale Baker MD Main Office [address] [address] [place] [address] 12/06/2017 13:00:24 12/12/2017 14:27:23 [id number] Pasquale Baker MD Main Office [address] [address] [place] [address] 02/12/2018 14:53:30 02/12/2018 15:31:44 Needs influenza immunization 890377654 Z23 Low back pain 910939071 M54.5 Muscular strain; improving. 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 [id number] Pasquale Baker MD Main Office [address] [place] [address] 05/23/2018 13:34:32 05/23/2018 14:33:11 Acute otitis externa 79525874 H60.501 Otitis media 49135884 H6 6.91 [id number] Luis F Connors MD Main Office [address] [place] [address] 06/23/2018 09:57:42 06/23/2018 11:17:04 Influenza-like illness 65736094 B34.9 Continue tamiflu, supportive /symptomat ic tx advised. Call inb/worse, or if new symptoms develop or second sickening occurs. Exacerbati on of intermittent asthma 275559168 J45.21 See if short course of prednisone helps with likely viral inflammati on causing cough. Cough 25042769 R05 Advised to try Delsym OTC. Prefer to avoid codeine based cough syrup given his other medication s/comorbid ities. [id number] Luis F Connors MD Main Office [address] [address] [place] [address] 07/09/2018 10:56:50 07/09/2018 12:04:27 Major depressive disorder 471953220 F32.9 Harmful pa ttern of use of alcohol 66585741 F10.10 Pt advised that ETOH use with his medication s and comorbidit ies is potentiall y dangerous and detrimenta l to his care plan. Outpt referral contact info provided. Advised not to stop abruptly when ready. Essential hypertension 94954692 I10 Well controlled . I suspect that anxiety and hyperventi lation were the cause of his symptoms. Advised to take AM meds chary and f/u with psych sooner than schedule if symptoms persist. [id number] Marlene juárez MD Main Office [address] [place] [address] 07/30/2018 09:59:03 07/30/2018 10:46:25 Recurrent depression 024115759 F33.9 Pt is doing better with some medication changes, will continue with outpatient services and add [facility] partial program this week. Discussed role of exercise for stress management Alcohol dependence 80611 003 F10.20 Pt will be attending outpatient program for alcohol dependence , I encouraged him to consider AA program for ongoing support, pt will consider. He has good support systems in place. He has not had any withdrawl sx. [id number] Pasquale Baker MD Main Office [address] [address] [place] [address] 08/08/2018 14:39:44 08/08/2018 15:39:24 Flank pain 299340212 R10.9 [id number] Pasquale Baker MD Main Office [address] [address] [place] [address] 09/10/2018 15:09:31 09/10/2018 16:11:13 Pain in left knee 7418421206 26112 M25.562 Pain in right thumb 1076 865200 579247 M79.644 [id number] Pasquale Baker MD Main Office [address] [address] [place] [address] 11/21/2018 12:54:20 11/21/2018 14:07:36 Adult health examination 641643014 Z00.00 UTD with immunizati ons Essential hypertension 51952360 I10 Obesity 909199139 E66.9 Z68.30 Recurrent depression 191 733577 F33.9 was hospitaliz ed, had ECT done 5 times about 2-3 years ago and meds are often adjusted and managed by psychiatry . He is actually doing better now than he has in a while. [id number] Luis F Connors MD Main Office [address] [address] [place] [address] 01/14/2019 15:22:06 01/14/2019 16:31:15 Folliculitis 17708182 L73.9 Will treat to clear up any infection. Use soap and water only, topical acne product only if needed, Reassured not likely to be bed bugs. Call if not improving within a few days to a week, sooner if worsening. [id number] Pasquale Baker MD Main Office [address] [address] [place] [address] 03/21/2019 14:38:44 03/21/2019 15:13:10 Acute asthma 794464347 J45.901 He will continue with flonase and cough meds. Call in 4 days if no improvemen t. [id number] Pasquale Baker MD Main Office [address] [address] [place] [address] 03/25/2019 13:23:33 03/25/2019 14:17:37 Dyspnea 431899065 R06.00 this is probably multifacto rial and related to his weight gain, and his anxiety. He stopped his beta rehan for a while but there was no difference in his dyspnea and his palpitatio ns increased. He is trying to increase his exercise (walking) and to lose weight. Asthma 813497927 J45.90 9 Advair and proair no longer covered. Community acquired pneumonia 121710426 J18.9 [id number] Pasquale Baker MD Main Office [address] [address] [place] [address] 04/19/2019 10:37:29 04/19/2019 13:14:37 Needs influenza immunization 724334637 Z23 Cervical lymphadenopathy 177161647 R59.0 These appear to be normal and he has no concerning symptoms. We will recheck next month but currently no further w/u needed. [id number] Pasquale Baker MD Main Office [address] [address] [place] [address] 08/13/2019 13:30:19 08/13/2019 15:35:57 Acute pharyngitis 320842208 J02.9 NSAIDs prn Dry cough 63357230 R05 Some improvemen t since he quit smoking. Symptomati c treatment. Exposure t o viral disease 5671106379 66786 Z03.818 He is anxious about this. Does not have a fever. Reassured him that at his age he is unlikely to have any serious problems. Advised him to stay away from his mother until after his illness has resolved. [id number] Pasquale Baker MD Main Office [address] [address] [place] [address] 12/23/2019 12:05:18 12/23/2019 12:25:46 [id number] Pasquale Baker MD Main Office [address] [place] [address] [place] [address] 12/27/2019 09:16:02 12/27/2019 10:20:50 Paresthesia of upper limb 48732666 R20.2 No clear etiology but symptoms have resolved. No further w/u needed. Will get the results of lab work and imaging done at [facility]. [id number] Pasquale Baker MD Main Office [address] [place] [address] [place] [address] 01/08/2020 10:05:01 01/08/2020 13:54:29 [id number] Pasquale Baker MD Main Office [address] [place] [address] [place] [address] 03/25/2020 11:33:13 03/25/2020 11:46:07 [id number] Pasquale Baker MD [place] [address] [place] [address] 03/25/2020 11:50:31 03/25/2020 13:49:30 Acute conjunctivitis 87033840 H10.31 warm compresses and wipe away discharge, keep eyes clean and dry, tobramycin drops as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 E66.01 Z68.35 Dyspnea on exertion 6084 5006 R06.09 His cardiac w/u has been normal. This is probably from weight gain and deconditio vandana. [id number] Pasquale Baker MD Main Office [address] [facility] [address] [place] [address] 10/18/2023 10:25:38 10/18/2023 10:52:28 Chronic constipation 563722385 K59.09 x2 months of chronic constipati on; has about 3 small BM a week-bloat ing, passing excess gas, and straining on the toilet-has been taking milk of magnesia with little relief-abd omen was soft, nontender, no gaurding on PE-will order xray and probide docusate and miralax as pt is unable to get OTC medication s-discusse d proper usage, AE, benefits/r isks [id number] Pasquale Baker MD Main Office [address] [facility] [address] [place] [address] 12/12/2023 10:21:33 12/12/2023 11:00:35 Palpitations 39252618 R00.2 He was taking bystolic for years but it is off formulary so he was switched to propranolo l by his cardiologi st and this had been working well. His increase is palpitatio ns is probably from increased anxiety since he decreased his benzo dose and secondary to anxiety about starting a new job next week. Essential hypertension 65982928 I10 Running a little high today possibly because of increased anxiety. Panic diso rder without agoraphobia 81178474 F41.0 on meds which do not seem to be helping much with his symptoms Generalize d anxiety disorder 92191156 F41.1 I advised him to speak to his psychiatri st to discuss increasing his clonazepam . [id number] Pasquale Baker MD Main Office [address] [facility] [address] [place] [address] 01/31/2024 14:49:58 01/31/2024 16:04:57 Obstructive sleep apnea syndrome 49282124 G47.33 On CPAP but may be having problems with HANS despite that. Palpitations 28545312 R0 0.2 He was taking bystolic for years but it is off formulary so he was switched to propranolo l by his cardiologi and this had been working well. His increase is palpitatio ns is probably from increased anxiety since he decreased his benzo dose. He will take an extra dose of propranolo l when needed. I will not increase the dose on a regular basis because he had a h/o symptomati c bradycardi a. Hyperlipidemia 82931205 E78.5 [id number] Pasquale Baker MD Main Office [address] [place] [address] 04/05/2024 14:43:30 04/05/2024 15:38:21 Insomnia with sleep apnea 39014434 G47.00 Needs to be titrated for an auto-CPAP. He was given a copy of the home study results and he will contact them himself. We will also send a request on his behalf with a phone number where he can be reached. Needs infl uenza immunization 948016219 Z23 19 YEARS AND OLDER ONLY Essential hypertension 97273145 I10 Running a little high today so will increase his amlodipine from 5 to 10 mg. [id number] Luis F Connors MD Main Office [address] [place] [address] 04/17/2024 14:59:07 04/17/2024 15:32:28 Tinea cruris 428030943 B35.6 begin using clotrimazo le cream as directed . [id number] Pasquale Baker MD Main Office [address] [facility] [address] [place] [address] 11/15/2024 08:59:31 11/15/2024 09:25:11 [id number] Pasquale Baker MD Main Office [address] [address] [place] [address] 01/08/2025 13:43:38 01/08/2025 14:01:14 [id number] Pasquale Baker MD Main Office [address] [address] [place] [address] 01/28/2025 10:01:42 01/28/2025 10:53:00 [id number] Pasquale Baker MD Main Office [address] [address] [place] [address] 01/30/2025 10:58:41 01/30/2025 12:07:34 Severe major depression with psychotic features 72850019 F32.3 Bipolar I disorder 28653 6008 F31.9 On meds. Sees a therapist at [facility] weekly and a psychiatri st at the same facility every 8 weeks. Harmful pa ttern of use of alcohol 79980392 F10.99 This has been an intermitte nt problem and got worse since his mother less than 2 years ago. It has been an intermitte nt problem throughout his adult life. He stopped drinking a few weeks ago and is in a supervised setting. Alcohol dependence 35595 003 F10.20 He is currently living in a shelter and finds this very helpful in keeping him sober. He likes the program. Body mass index 30+ - obesity 532789695 Z68.30 E66.9 [id number] Pasquale Baker MD Main Office [address] [address] [place] [address] 02/13/2025 09:02:00 02/13/2025 09:36:36 Needs influenza immunization 314637460 Z23 19 YEARS AND OLDER ONLY Plantar fasciitis 844401 003 M72.2 21776 He will do exercises at home and will have reduced activities over the next 2 weeks. He will call for a podiatry referral in a couple of weeks if ther is no improvemen t. Plantar fa sciitis of right foot 0687286952 1682628 M72.2 [id number] [id number] Pasquale Baker MD Main Office [address] [address] [place] [address] 04/04/2025 12:57:30 04/04/2025 14:05:03 Health Concerns Section Related Observation LastModified by Organization Detai ls LastModified Time None Recorded Concern Status LastModified by Organization Details LastModified Time None Recorded Advance Directives Directive Y: Payers Insurance Date Sequence Insurance Name Policy Number Policy Cooper Covered Member ID Cooper Member ID Guarantor Name 01/30/2025 1 [facility] CLARITY - QHP (MEDICAID REPLACEMENT - HMO) [id number] Tahir Saw Amy [id number] Tahir Reyes 04/04/2025 2 [place] [facility] Tahir Reyes [id number] Tahir Reyes 01/30/2025 1 [facility] CLARITY - QHP (MEDICAID REPLACEMENT - HMO) [id number] Tahir Saw Amy [id number] Tahir Reyes 01/30/2025 1 [facility] HE[facility] - MEDICAID ESSENTIAL (MEDICAID HMO) [id number] Tahir Reyes [id number] Tahir Reyes 04/04/2025 1 MED[place] B-[place]: [facility] [employer] Tahir Reyes [id number] Tahir Reyes Notes Date Note Type Note Provider Name and Address Organization Details Recorded Time text/html Hospitalization Contact RecordReported by PatientHospitalization Contact RecordFor follow up, patient [facility]shospital[facility],admit date: (please enter in format '/dd/yyyy') (01/02/2025),date of discharge: (please enter in format '/dd/yyyy') (01/08/2025), anddate of contact: (please enter in format 'mm/dd/yyyy') (01/08/2025).Medicare covered inpatient stay? yesMedicare CHE with in 48 working hours? yesHigh Complexity code valid on or before:DecemberModerate Complexity code valid on or before:DecemberHCP on file? noMOLST on file? noDischarge Summary available? yes 44 year old male with history of mental health disorder presents t [facility] with increase anxiety , episode of anxiety attack. Patient was recently discharge from [facility] trying to a just to new shelter. Anxiety kicked in due to over thinking that he would not be able to get through new program and relationships wont be established. Patient admitted for further monitoring due to negative impulses and med management. Throughout hospital stay mood improved , compliant with medication regimen. Did speak to inpatient psych discussing coping with waves / episodes of anxiety. No signs of harming himself , patient was cleared to return to shelter with return [facility]. Mechanical Shovel Operator updated patient medication regimen. CHE call to patient , no answer left detailed message on voice mail to call office back on status and to schedule follow up . 01/10/25 CM call (#3 total calls by care team) to sched f/u appt here- no ans - lvm Pasquale Baker MD [address], [place], [address], [facility] [place] 01/13/2025 11:39:59 5 text/html Hospitalization Contact RecordReported by PatientHospitalization Contact RecordFor follow up, patient reportshospital: [facility],admit date: (please enter in format 'mm/dd/yyyy') (01/15/2025),date of discharge: (please enter in format 'mm/dd/yyyy') (01/27/2025), anddate of contact: (please enter in format 'mm/dd/yyyy') (01/28/2025).Medicare covered inpatient stay? yes Medicare CHE with in 48 working hours? yes High Complexity code valid on or before:January Moderate Complexity code valid on or before: January HCP on file? no MOLST on file? no Discharge Summary available? yes 44 year old with severe history of depression ,PTSD admitted to [facility] for major depressive disorder. Patient was recently admitted on 01/08/2205 for the same symptoms. Patient discharge to [facility] where he will be receiving treatment for alcohol use and major depression. Patient instructed to follow up with PCP ,Mechanical Shovel Operator call to patient no answer unable to leave message . Patient also to followup with sleep medicine to due to HANS.Mechanical Shovel Operator reviewed medications and updated as noted. Pasquale Baker MD [address] [facility] [address], [place], [address], [facility] [place] 01/28/2025 10:52:59 5 text/html Hospitalization Contact RecordReported by PatientHospitalization Contact RecordFor follow up, patient reportshospital: [facility],admit date: (please enter in format 'mm/dd/yyyy') (/),date of discharge: (please enter in format 'mm/dd/yyyy') (/05/2024), anddate of contact: (please enter in format 'mm/dd/yyyy') (/06/2024).He was in a program at [facility] and was having suicidal ideation and was admitted to [facility] from 11/10 to 11/15/24 before being transferred back to [facility] which is an inpatient mental health facility. He had a difficult time adjusting to the new program and was transferred to a sober house in [place] but left after 2 days. On December 03 2024 he was admitted to the psych unit at [facility] and was eventually admitted to the [facility] which is an inpatient mental health facility. He has had some trouble adjusting so was sent to [facility] on 01/08/25 and was admitted until 01/28/25 before being sent back to the [facility].He had been admitted for further monitoring due to negative impulses and med management. Throughout hospital stay mood improved , compliant with medication regimen. Did speak to inpatient psych discussing coping with waves / episodes of anxiety. No signs of harming himself , patient was cleared to return to shelter with return [facility]. Mechanical Shovel Operator updated patient medication regimen. CHE call to patient , no answer left detailed message on voice mail to call office back on status and to schedule follow up . He appears well and is hopeful that this program will be helpful. The stay there is generally for one year. He also continues to follow with his therapist, Ana Lilia at [facility] who he has been seeing for more than 15 years. He sees her weekly. ROS as noted in the HPI Pasquale Baker MD [address] [address], [place], [address], [facility] 01/31/2025 10:05:18 5 text/html He has been having pain at the bottom of his right foot that started a number of days ago when he was playing basketball. It hurts to bear weight and especially hurts when he first gets up in the am. He was seen at [facility] in [place] a couple of days ago (02/11/25) and had an xray done which was reportedly normal. We will get the records. Pasquale Baker MD [address] [address], [place], [address], [facility] 02/13/2025 09:48:08 5 text/html Hospitalization Contact RecordReported by PatientHospitalization Contact RecordFor follow up, patient reportshospital: [facility],admit date: (please enter in format 'mm/dd/yyyy') (03/25/2025),date of discharge: (please enter in format 'mm/dd/yyyy') (04/03/2025), anddate of contact: (please enter in format 'mm/dd/yyyy') (04/04/2025)(rudi).Med icare covered inpatient stay? yes Medicare CHE with in 48 working hours? yes High Complexity code valid on or before:March Moderate Complexity code valid on or before: March HCP on file? no MOLST on file? no Discharge Summary available? yes 44 year old male with history of mental health illness who presented to [facility] ED on 03/24/2025 due to suicidal ideation who then was transferred to [facility] on 03/25/2025 for further mental health management. [...] to be compliant with outpatient therapy session. [employer] Che call to patient regarding discharge status. Patient reports doing well. No intention in harming himself, aware to return to ED or call crisis line if has any negative thoughts. Compliant with medications , no questions or concerns. Scheduled patient with provider on 04/10/2025 at 9;45 am. Pasquale Baker MD [address] [address], [place], [id number], [facility] [place] 04/04/2025 13:43:13
--- OUTSIDE RECORDS SUMMARY | 2025-05-04 11:55 | XMS_ITS | Continuity of Care Document ---
Author Organization [facility], Main Office Address [address] [facility] [address] [place] [id number] Care Team Providers Care Fisheries Management Biologist Name Role Phone QUAN BAKER Primary Care Provider [facility] Ref erring Provider ZEYAD SLADE Drying Oven Tender SOLO PARIS Referring Provider [phone] FREDY CHAVARRIA Sawmill Manager [facility] Sleep Medi cine Assessment No assessment recorded. [...] Modified By Organization Details Last Modified Time 02/13/2025 [id number] plantar fasciitis: care instructions [email or web address] Not available 02/13/2025 09:34:25 plantar fasciitis: exercises [email or web address] Not available 02/13/2025 09:34:25 Reason for Referral None Reported. Results Created Date Observation Date Name Description Value Unit Range Abnormal Flag Note LastModifiedBy Organization Detail LastModifiedTime 02/14/2002/11/2025 XR, foot, 3 or more view No observ ation record ed. [email or web address] Not Available 01/27 10:56:15 Result Notes None recorded. Problems Name Problem SNOMED Code Status Onset Date Resolution Date Notes Provider Name and Address Organization Details Recorded Time Allergic rhinitis 34537091 Active Maria Del Rosarioluca Connors null, [facility] 9 09:14:48 Asthma 470710761 Active Maria Del Rosario Connors null, [facility] 9 09:14:48 Malaise and fatigue 270549064 Completed 03/31/2023 UBALDO OLIVEIRA MD [address] [facility] [address], [place], [address] , [facility] 07:55:26 Pure hypercho lesterol emia 263948281 Completed 10/28/2016 Quan Baker MD [address] [address], [place], [address] , [facility] 7 11:41:58 Insomnia with sleep apnea 91845637 Active Maria Del Rosario thurman, [facility] 9 09:14:48 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 738509076 Active Maria Del Rosario Connors null, [facility] 9 09:14:48 Palpitat ions 27186277 Completed 11/11/2016 Quan Baker MD [address] [facility] [address], [place], [address] , [facility] 8 14:46:16 Panic disorder without agorapho janee 59020610 Active Maria Del Rosario Connors null, [facility] 9 09:14:48 Dyspnea 536158754 Active Maria Del Rosario Connors null, [facility] 9 09:14:48 Obesity 808400065 Completed 02/21/2014 Yvette Mittal PA-C [address] [facility] [address], [place], [address] , [facility] 11:12:29 Tachycar dustin 3976616 Active Maria Del Rosario Connors cuca, [facility] 9 09:14:48 Ankle edema 01909326 Active Maria Del Rosario thurman, [facility] 9 09:14:48 Abdomina l pain 30418379 Completed 03/07/2018 RUBÉN Lucas, [facility] 8 13:24:05 Acute low back pain 164407683 Completed 03/07/2018 RUBÉN Lucas, [facility] 8 13:24:18 Paronych ia of toe 856164754 Completed 03/31/2023 UBALDO OLIVEIRA MD [address] [facility] [address], [place], [address] , [facility] 3 07:55:30 Insomnia 266893130 Active Maria Del Rosario Waylon thurman, [facility] 9 09:14:48 Chronic constipa tion 653699775 Active Maria Del Rosarioarnav Connors cuca, [facility] 9 09:14:48 Weight gain 6969083 Active Maria Del Rosario Waylon thurman, [facility] 9 09:14:48 Acute upper respirat ory infectio n 62532749 Completed 200712/10/2013 RECORDED 02/11/20 08 9:20AM BY HEMA RODRIGUEZ ON/YOSEF Mittal PA-C [address] [facility] [address], [place], [address] , [facility] 11:12:29 Acute upper respirat ory infectio n 74288067 Completed 200701/02/2014 RECORDED 02/11/20 08 9:20AM BY HEMA RODRIGUEZ ON/YOSEF Mittal PA-C [address] [facility] [address], [place], [address] , [facility] 11:12:29 Acute upper respirat ory infectio n 60199175 Completed 200701/03/2014 RECORDED 02/11/20 08 9:20AM BY RUBÉN BARFIELD, HEMA ON/ADDEN DUM Yvette Mittal PA-C [address], [place], [address] , [facility] 11:12:29 Degenera tion of interver tebral disc Completed 200712/10/2013 RECORDED 03/11/20 08 10:08AM BY ELIZABETH RIBERA, DREADATI ON/ADDEN DUM Yvette Mittal PA-C [address], [place], [address] , [facility] 11:12:30 Degenera tion of interver tebral disc Completed 200701/02/2014 RECORDED 03/11/20 08 10:08AM BY HEMA MARROQUIN ON/ADDEN DUM Yvette Mittal PA-C [address], [place], [address] , [facility] 11:12:30 Degenera tion of interver tebral disc Completed 200701/03/2014 RECORDED 03/11/20 08 10:08AM BY HEMA MARROQUIN ON/ADDEN DUM Yvette Mittal PA-C [address], [place], [address] , [facility] 11:12:30 Influenz a vaccine needed [id number] 06 Completed 201012/10/2013 DATE: 04/13/20 11; RECORDED 04/24/20 12 2:15PM BY MARILEE MARTINEZ MA, HEMA ON/ADDEN DUM Yvette Mittal PA-C [address], [place], [address] , [facility] 11:12:30 Influenz a vaccine needed [id number] 06 Completed 201001/02/2014 DATE: 04/13/20 11; RECORDED 04/24/20 12 2:15PM BY MARILEE MARTINEZ MA, ANNOTATI ON/YOSEF WOLFE Vibossman Villaden PA-C [address], [place], [address] , [facility] 11:12:30 Influenz a vaccine needed [id number] 06 Completed 201001/03/2014 DATE: 04/13/20 11; RECORDED 04/24/20 12 2:15PM BY MARILEE MARTINEZ MA, ANNOTATI ON/ADDEN DUM Yvette Mittal PA-C [address] [facility] [address], [place], [address] , [facility] 11:12:30 Acute pharyngi tis 153150610 Completed 201112/10/2013 RECORDED 12/05/19 12 2:58PM BY QUAN OCHOA MD, ANNOTATI ON/YOSEF WOLFE Vibossman Mittal [employer]-C [address] [facility] [address], [place], [address] , [facility] 11:12:29 Acute sinusiti s 98914369 Completed 201112/10/2013 IMPRESSI ON: VIRAL; RECORDED 12/05/19 12 2:58PM BY QUAN OCHOA MD, ANNOTATI ON/NELIDACHARLEE WOLFE Yvettebossman Mittal [employer]-C [address] [facility] [address], [place], [address] , [facility] 11:12:29 Cough 44541588 Completed 201112/10/2013 IMPRESSI ON: C/W INFLUENZ A-LIKE ILLNESS, CXR NORMAL; RECORDED 12/05/19 12 3:01PM BY QUAN OCHOA MD, ANNOTATI ON/YOSEF DUM Yvettebossman Villaden PA-C [address] [facility] [address], [place], [address] , [facility] 11:12:29 Otitis media 36425579 Completed 201112/10/2013 RECORDED 12/05/19 12 2:58PM BY QUAN OCHOA MD, ANNOTATI ON/YOSEF HOUSERC [address], [place], [address] , [facility] 11:12:29 Acute pharyngi tis 574713520 Completed 201101/02/2014 RECORDED 12/05/19 12 2:58PM BY QUAN OCHOA MD, ANNOTATI ON/YOSEF HOUSERC [address], [place], [address] , [facility] 11:12:29 Acute sinusiti s 62543245 Completed 201101/02/2014 IMPRESSI ON: VIRAL; RECORDED 12/05/19 12 2:58PM BY QUAN OCHOA MD, ANNOTATI ON/YOSEF HOUSERC [address], [place], [address] , [facility] 11:12:29 Cough 94425981 Completed 201101/02/2014 IMPRESSI ON: C/W INFLUENZ A-LIKE ILLNESS, CXR NORMAL; RECORDED 12/05/19 12 3:01PM BY QUAN OCHOA MD, ANNOTLISETTE ON/YOSEF Mittal PA-C [address], [place], [address] , [facility] 11:12:29 Otitis media 35806654 Completed 201101/02/2014 RECORDED 12/05/19 12 2:58PM BY QUAN OCHOA MD, ANNOTATI ON/YOSEF HOUSERC [address], [place], [address] , [facility] 11:12:29 Acute pharyngi tis 979405282 Completed 201101/03/2014 RECORDED 12/05/19 12 2:58PM BY QUAN OCHOA MD, ANNOTATI ON/ADDEN DUM Yvettebossman VIEIRA-C [address] [facility] [address], [place], [address] , [facility] 11:12:29 Acute sinusiti s 02052094 Completed 201101/03/2014 IMPRESSI ON: VIRAL; RECORDED 12/05/19 12 2:58PM BY QUAN OCHOA MD, DREADATI ON/ADDEN DUM Yvettebossman Mittal PA-C [address] [facility] [address], [place], [address] , [facility] 11:12:29 Cough 76063126 Completed 201101/03/2014 IMPRESSI ON: C/W INFLUENZ A-LIKE ILLNESS, CXR NORMAL; RECORDED 12/05/19 12 3:01PM BY QUAN OCHOA MD, HEMA ON/ADDEN DUM Yvette VIEIRA-C [address] [facility] [address], [place], [address] , [facility] 11:12:29 Otitis media 53116686 Completed 201101/03/2014 RECORDED 12/05/19 12 2:58PM BY QUAN OCHOA MD, HEMA ON/ADDEN DUM Yvette Mittal PA-C [address] [facility] [address], [place], [address] , [facility] 11:12:29 Elevated blood-pr essure reading without diagnosi s of hyperten william 960412201 Completed 201112/10/2013 IMPRESSI ON: HIS BP IS PROBABLY UP BECAUSE OF ANXIETY BUT WE WILL LOOK FOR OTHER ETIOLOGI ES AND SEE HIM BACK IN A FEW WEEKS TO RECHECK THIS.; RECORDED 01/09/20 12 8:30AM BY WEST INGRAM I, HEMA ON/ADDEN DUM Yvette Kyrie VIEIRA-C [address] [facility] [address], [place], [address] , [facility] 11:12:29 Irritabl e bowel syndrome 31940922 Completed 201112/10/2013 RECORDED 01/09/20 12 8:30AM BY HEMA RUVALCABA ON/ADDEN DUM Yvette Kyrie PA-C [address] [facility] [address], [place], [address] , [facility] 11:12:29 Elevated blood-pr essure reading without diagnosi s of hyperten william 318152262 Completed 201101/02/2014 IMPRESSI ON: HIS BP IS PROBABLY UP BECAUSE OF ANXIETY BUT WE WILL LOOK FOR OTHER ETIOLOGI ES AND SEE HIM BACK IN A FEW WEEKS TO RECHECK THIS.; RECORDED 01/09/20 12 8:30AM BY HEMA RUVALCABA ON/ADDEN DUM Yvette Kyrie VIEIRA-C [address] [facility] [address], [place], [address] , [facility] 11:12:29 Irritabl e bowel syndrome 38549567 Completed 201101/02/2014 RECORDED 01/09/20 12 8:30AM BY HEMA RUVALCABA ON/ADDEN DUM Yvette Kyrie VIEIRA-C [address] [facility] [address], [place], [address] , [facility] 11:12:29 Elevated blood-pr essure reading without diagnosi s of hyperten william 422199237 Completed 201101/03/2014 IMPRESSI ON: HIS BP IS PROBABLY UP BECAUSE OF ANXIETY BUT WE WILL LOOK FOR OTHER ETIOLOGI ES AND SEE HIM BACK IN A FEW WEEKS TO RECHECK THIS.; RECORDED 01/09/20 12 8:30AM BY DREAD RUVALCABAATI ON/ADDEN DUM Yvette Kyrie PA-C [address] [facility] [address], [place], [address] , [facility] 11:12:29 Irritabl e bowel syndrome 69084958 Completed 201101/03/2014 RECORDED 01/09/20 12 8:30AM BY HEMA RUVALCABA ON/ADDEN DUM Yvette Mittal PA-C [address], [place], [address] , [facility] 11:12:29 History of clinical finding in subject 172029609 Completed 201112/31/2013 RECORDED 02/10/20 12 11:56AM BY HEMA RUVALCABA ON/ADDEN DUM Yvette Mittal PA-C [address], [place], [address] , [facility] 11:12:30 Tobacco user 390147153 Completed 201112/10/2013 RECORDED 02/10/20 12 11:56AM BY HEMA RUVALCABA ON/ADDEN DUM Yvette Mittal PA-C [address] [facility] [address], [place], [address] , [facility] 11:12:29 Acute asthma 621631568 Completed 201112/10/2013 IMPRESSI ON: TRIGGERE D BY VIRAL URI. CONTINUE USING ALBUTERO L PRN; RECORDED 02/23/20 12 8:26AM BY FABIOLA HERNANDEZ MA, HEMA ON/ADDEN DUM Yvette Kyrie PA-C [address] [facility] [address], [place], [address] , [facility] 11:12:29 Acute asthma 598515400 Completed 201101/02/2014 IMPRESSI ON: TRIGGERE D BY VIRAL URI. CONTINUE USING ALBUTERO L PRN; RECORDED 02/23/20 12 8:26AM BY FABIOLA HERNANDEZ MA, HEMA ON/ADDEN DUM Yvette Kyrie PA-C [address] [facility] [address], [place], [address] , [facility] 11:12:29 Acute asthma 554324960 Completed 201101/03/2014 IMPRESSI ON: TRIGGERE D BY VIRAL URI. CONTINUE USING ALBUTERO L PRN; RECORDED 02/23/20 12 8:26AM BY FABIOLA HERNANDEZ MA, ANNOTATI ON/ADDEN DUM Yvette Mittal PA-C [address], [place], [address] , [facility] 11:12:29 Tachycar dustin 5592052 Completed 201112/10/2013 IMPRESSI ON: .; RECORDED 02/28/20 12 1:35PM BY XAVIER TAMAYO MA, ANNOTATI ON/ADDEN DUM Yvette Mittal PA-C [address] [facility] [address] [facility], [place], [address] , [facility] 11:12:29 Tachycar dustin 1458631 Completed 201101/02/2014 IMPRESSI ON: .; RECORDED 02/28/20 12 1:35PM BY XAVIER TAMAYO MA, ANNOTATI ON/ADDEN DUM Yvette Mittal PA-C [address] [facility] [address], [place], [address] , [facility] 11:12:29 Tachycar dustin 0932216 Completed 201101/03/2014 IMPRESSI ON: .; RECORDED 02/28/20 12 1:35PM BY XAVIER TAMAYO MA, ANNOTATI ON/ADDEN DUM Yvette Mittal PA-C [address] [facility] [address], [place], [address] , [facility] 11:12:29 Examinat ion for suspecte d mental disorder Completed 201112/10/2013 RECORDED 04/24/20 12 2:15PM BY MARILEE MARTINEZ MA, ANNOTATI ON/ADDEN DUM Yvette Mittal PA-C [address] [facility] [address], [place], [address] , [facility] 11:12:30 Examinat ion for suspecte d mental disorder Completed 201101/02/2014 RECORDED 04/24/20 12 2:15PM BY MARILEE MARTINEZ MA, ANNOTATI ON/ADDEN DUM Yvette Mittal PA-C [address], [place], [address] , [facility] 11:12:30 Examinat ion for suspecte d mental disorder Completed 201101/03/2014 RECORDED 04/24/20 12 2:15PM BY MARILEE MARTINEZ MA, ANNOTATI ON/ADDEN DUM Yvette Mittal PA-C [address] [facility] [address], [place], [address] , [facility] 11:12:30 Adult health examinat ion Completed 201212/10/2013 RECORDED 07/05/19 13 10:29AM BY HEMA RUVALCABA ON/ADDEN DUM Yvette Mittal PA-C [address], [place], [address] , [facility] 11:12:30 Administ ration of diphther ia and tetanus vaccine Completed 201212/10/2013 RECORDED 07/05/19 13 10:29AM BY HEMA RUVALCABA ON/ADDEN DUM Yvette Mittal PA-C [address], [place], [address] , [facility] 11:12:30 Exposure to organism Completed 201212/10/2013 RECORDED 07/05/19 13 10:29AM BY HEMA RUVALCABA ON/ADDEN DUM Yvette Mittal PA-C [address], [place], [address] , [facility] 11:12:30 Adult health examinat ion Completed 201201/02/2014 RECORDED 07/05/19 13 10:29AM BY DREAD RUVALCABAATI ON/ADDEN DUM Yvette Mittal PA-C [address], [place], [address] , [facility] 11:12:30 Administ ration of diphther ia and tetanus vaccine Completed 201201/02/2014 RECORDED 07/05/19 13 10:29AM BY DREAD RUVALCABAATI ON/ADDEN DUM Yvette Mittal PA-C [address], [place], [address] , [facility] 11:12:30 Exposure to organism Completed 201201/02/2014 RECORDED 07/05/19 13 10:29AM BY DREAD RUVALCABAATI ON/ADDEN DUM Yvette Mittal PA-C [address] [facility] [address], [place], [address] , [facility] 11:12:30 Adult health examinat ion Completed 201201/03/2014 RECORDED 07/05/19 13 10:29AM BY DREAD RUVALCABAATI ON/ADDEN DUM Yvette Mittal PA-C [address] [facility] [address], [place], [address] , [facility] 11:12:30 Administ ration of diphther ia and tetanus vaccine Completed 201201/03/2014 RECORDED 07/05/19 13 10:29AM BY DREAD RUVALCABAATI ON/ADDEN DUM Yvette Mittal PA-C [address] [facility] [address], [place], [address] , [facility] 11:12:30 Exposure to organism Completed 201201/03/2014 RECORDED 07/05/19 13 10:29AM BY DREAD RUVALCABAATI ON/ADDEN DUM Yvette Mittal PA-C [address], [place], [address] , [facility] 11:12:30 Respirat ory finding Completed 201212/10/2013 IMPRESSI ON: HIS RESPIRAT ORY SX COULD BE SIMPLY RELATED TO ANXIETY AND PANIC ATTACKS BUT HE HAS BEEN RECEIVIN G TREATMEN T FOR THESE AND HIS SX PERSIST. ; RECORDED 01/10/20 13 11:32AM BY DREAD RUVALCABAATI ON/ADDEN DUM Yvette Mittal PA-C [address], [place], [address] , [facility] 11:12:30 Respirat ory finding Completed 201201/02/2014 IMPRESSI ON: HIS RESPIRAT ORY SX COULD BE SIMPLY RELATED TO ANXIETY AND PANIC ATTACKS BUT HE HAS BEEN RECEIVIN G TREATMEN T FOR THESE AND HIS SX PERSIST. ; RECORDED 01/10/20 13 11:32AM BY HEMA RUVALCABA ON/ADDEN DUM Yvette Mittal PA-C [address] [facility] [address], [place], [address] , [facility] 11:12:30 Respirat ory finding Completed 201201/03/2014 IMPRESSI ON: HIS RESPIRAT ORY SX COULD BE SIMPLY RELATED TO ANXIETY AND PANIC ATTACKS BUT HE HAS BEEN RECEIVIN G TREATMEN T FOR THESE AND HIS SX PERSIST. ; RECORDED 01/10/20 13 11:32AM BY HEMA RUVALCABA ON/ADDEN DUM Yvette Mittal PA-C [address], [place], [address] , [facility] 11:12:30 Anxiety state 628807296 Completed 201212/10/2013 IMPRESSI ON: ON MEDS BY PSYCH, WILL TALK TO THEM IF STILL FEELING ANXIOUS ON MONDAY; RECORDED 04/10/20 13 10:23AM BY CHRISTA FRANCIS MA, HEMA ON/YOSEF Mittal PA-C [address], [place], [address] , [facility] 11:12:29 Palpitat ions 61039318 Completed 201212/10/2013 IMPRESSI ON: SOUND BENIGN, MOST LIKELY RELATED TO LOW HYDRATIO N AFTER SURGERYA DN ANXIETY, NL EKG, PT WAS REASSURE D; RECORDED 04/10/20 13 10:23AM BY CHRISTA FRANCIS MA, ANNOTATI ON/YOSEF Baker MD [address], [place], [address] , [facility] 14:46:16 Sleep apnea 10413948 Completed 201212/10/2013 IMPRESSI ON: HEALING FROM RECENT SEPTOPLA STY, SEEMS TO BE HEALING WELL; RECORDED 04/10/20 13 10:23AM BY CHRISTA FRANCIS MA, HEMA ON/YSOEF Mittal PA-C [address] [facility] [address], [place], [address] , [facility] 11:12:29 Anxiety state 636177703 Completed 201201/02/2014 IMPRESSI ON: ON MEDS BY PSYCH, WILL TALK TO THEM IF STILL FEELING ANXIOUS ON MONDAY; RECORDED 04/10/20 13 10:23AM BY CHRISTA FRANCIS MA, ANNOTLISETTE ON/YOSEF Mittal PA-C [address] [facility] [address], [place], [address] , [facility] 11:12:29 Palpitat ions 82333555 Completed 201201/02/2014 IMPRESSI ON: SOUND BENIGN, MOST LIKELY RELATED TO LOW HYDRATIO N AFTER SURGERYA DN ANXIETY, NL EKG, PT WAS REASSURE D; RECORDED 04/10/20 13 10:23AM BY CHRISTA FRANCIS MA, ANNOTATI ON/YOSEF Baker MD [address], [place], [address] , [facility] 14:46:16 Sleep apnea 26780914 Completed 201201/02/2014 IMPRESSI ON: HEALING FROM RECENT SEPTOPLA STY, SEEMS TO BE HEALING WELL; RECORDED 04/10/20 10:23AM BY CHRISTA FRANCIS MA, HEMA ON/ADDEN AIDEN HOUSERC [address], [place], [address] , [facility] 11:12:29 Anxiety state 946681024 Completed 201201/03/2014 IMPRESSI ON: ON MEDS BY PSYCH, WILL TALK TO THEM IF STILL FEELING ANXIOUS ON MONDAY; RECORDED 04/10/20 13 10:23AM BY CHRISTA FRANCIS MA, ANNOTLISETTE ON/NELIDAEN AIDEN HOUSERC [address], [place], [address] , [facility] 11:12:29 Palpitat ions 03681804 Completed 201201/03/2014 IMPRESSI ON: SOUND BENIGN, MOST LIKELY RELATED TO LOW HYDRATIO N AFTER SURGERYA DN ANXIETY, NL EKG, PT WAS REASSURE D; RECORDED 04/10/20 10:23AM BY CHRISTA FRANCIS MA, HEMA ON/NELIDAEN AIDEN Baker MD [address], [place], [address] , [facility] 14:46:16 Sleep apnea 69490878 Completed 201201/03/2014 IMPRESSI ON: HEALING FROM RECENT SEPTOPLA STY, SEEMS TO BE HEALING WELL; RECORDED 04/10/20 13 10:23AM BY CHRISTA FRANCIS MA, ANNOTATI ON/ADDEN DUM Yvette Mittal PA-C [address], [place], [address] , [facility] 11:12:29 Immuniza tion refused Completed 201212/10/2013 RECORDED 04/19/20 13 8:55AM BY HEMA RUVALCABA ON/ADDEN DUM Yvette Mittal PA-C [address], [place], [address] , [facility] 11:12:30 Increase d frequenc y of urinatio n 604849251 Completed 201212/10/2013 IMPRESSI ON: HE WANTED TO HAVE HIS URINE CHECKED SINCE URINATIN G EVERY HR; RECORDED 04/19/20 13 8:55AM BY HEMA RUVALCABA ON/ADDEN DUM Yvette Mittal PA-C [address], [place], [address] , [facility] 11:12:29 Immuniza tion refused Completed 201201/02/2014 RECORDED 04/19/20 13 8:55AM BY HEMA RUVALCABA ON/ADDEN DUM Yvette Mittal PA-C [address] [facility] [address], [place], [address] , [facility] 11:12:30 Increase d frequenc y of urinatio n 617910136 Completed 201201/02/2014 IMPRESSI ON: HE WANTED TO HAVE HIS URINE CHECKED SINCE URINATIN G EVERY HR; RECORDED 04/19/20 13 8:55AM BY HEMA RUVALCABA ON/ADDEN DUM Yvette Mittal PA-C [address], [place], [address] , [facility] 11:12:29 Immuniza tion refused Completed 201201/03/2014 RECORDED 04/19/20 13 8:55AM BY HEMA RUVALCABA ON/ADDEN DUM Yvette Mittal PA-C [address], [place], [address] , [facility] 11:12:30 Increase d frequenc y of urinatio n 541325855 Completed 201201/03/2014 FLORENCEI ON: HE WANTED TO HAVE HIS URINE CHECKED SINCE URINATIN G EVERY HR; RECORDED 04/19/20 13 8:55AM BY HEMA RUVALCABA ON/ADDEN DUM Yvette Mittal PA-C [address], [place], [address] , [facility] 11:12:29 Obstruct michael sleep apnea syndrome [id number] Completed 201312/10/2013 RECORDED 07/02/19 14 12:40PM BY DREAD RUVALCABAATI ON/ADDEN DUM Yvette Mittal PA-C [address], [place], [address] , [facility] [place] [facility] 11:12:29 Obstruct michael sleep apnea syndrome [id number] Completed 201301/02/2014 RECORDED 07/02/19 14 12:40PM BY DREAD RUVALCABAATI ON/ADDEN DUM Yvette Mittal PA-C [address], [place], [address] , [facility] [place] [facility] 11:12:29 Obstruct michael sleep apnea syndrome [id number] Completed 201301/03/2014 RECORDED 07/02/19 14 12:40PM BY HEMA RUVALCABA ON/ADDEN DUM Yvette Mittal PA-C [address], [place], [address] , [facility] 11:12:29 Laborato ry procedur e performe d [id number] Completed 201312/10/2013 RECORDED 09/18/19 14 8:19AM BY DREAD RUVALCABAATI ON/ADDEN DUM Yvette Mittal PA-C [address], [place], [address] , [facility] 11:12:30 Disorder of upper respirat ory system Completed 201312/10/2013 RECORDED 09/18/19 14 8:19AM BY WEST INGRAM I, ANNOTATI ON/ADDEN DUM Yvette Mittal PA-C [address], [place], [address] , [facility] 11:12:30 Laborato ry procedur e performe d [id number] Completed 201301/02/2014 RECORDED 09/18/19 14 8:19AM BY DREAD RUVALCABAATI ON/ADDEN DUM Yvette Mittal PA-C [address], [place], [address] , [facility] 11:12:30 Disorder of upper respirat ory system Completed 201301/02/2014 RECORDED 09/18/19 14 8:19AM BY DREAD RUVALCABAATI ON/ADDEN DUM Yvette Mittal PA-C [address], [place], [address] , [facility] 11:12:30 Laborato ry procedur e performe d [id number] Completed 201301/03/2014 RECORDED 09/18/19 14 8:19AM BY DREAD RUVALCABAATI ON/ADDEN DUM Yvette Mittal PA-C [address], [place], [address] , [facility] 11:12:30 Disorder of upper respirat ory system Completed 201301/03/2014 RECORDED 09/18/19 14 8:19AM BY WEST INGRAM I ANNOTATI ON/ADDEN DUM Yvette Mittal PA-C [address], [place], [address] , [facility] 11:12:30 Essentia l hyperten william [id number] Completed 201312/10/2013 RECORDED 09/26/19 14 10:39AM BY HEMA RUVALCABA ON/ADDEN AIDEN Baker MD [address], [place], [address] , [facility] 14:46:24 Follow-u p encounte r Completed 201312/31/2013 RECORDED 10/11/19 14 9:52AM BY WEST INGRAM I TRANSITI ON OF CARE Yvettebossman Mittal PA-C [address], [place], [address] , [facility] 11:12:30 Dyspnea [id number] Completed 201301/02/2014 IMPRESSI ON: THIS IS PROBABLY FROM HIS UNDERLYI NG ANXIETY. I ASSURED HIM THAT THERE IS NO MEDICAL REASON FOR HIS SOB AND NO NEED FOR FURTHER W/U. I ALSO EXPLAINE D TO HIM THAT IT IS IMPOSSIB LE FOR HIM TO STOP BREATHIN G AND NOT START UP AGAIN.; RECORDED 11/12/19 14 8:42AM BY HEMA RUVALCABA ON/ADDEN AIDEN Yvettebossman VIEIRA-C [address], [place], [address] , [facility] 11:12:29 Dyspnea [id number] Completed 201301/03/2014 IMPRESSI ON: THIS IS PROBABLY FROM HIS UNDERLYI NG ANXIETY. I ASSURED HIM THAT THERE IS NO MEDICAL REASON FOR HIS SOB AND NO NEED FOR FURTHER W/U. I ALSO EXPLAINE D TO HIM THAT IT IS IMPOSSIB LE FOR HIM TO STOP BREATHIN G AND NOT START UP AGAIN.; RECORDED 11/12/19 14 8:42AM BY HEMA RUVALCABA ON/ADDEN AIDEN Yvettebossman Mittal PA-C [address], [place], [address] , [facility] 11:12:29 Laborato ry procedur e performe d [id number] Completed 201301/16/2014 RECORDED 11/13/19 14 1:39PM BY FABRIZIO CONNORS, LAB REQ Yvette Mittal PA-C [address], [place], [address] , [facility] 11:12:30 Single major depressi ve episode Completed 201301/16/2014 IMPRESSI ON: WILL RESTART HIS ZOLOFT AT 100 MG INSTEAD 150 AND HE WILL DISCUSS TREATMEN T FURTHER WITH HIS PSYCHIAT RIST ON Apr.; RECORDED 11/27/19 14 12:54PM BY SMITH CARLISLE, OFFICE VISIT Yvette Mittal PA-C [address], [place], [address] , [facility] 11:12:29 Essdeangelo casper hyperten william [id number] Completed 201301/16/2014 IMPRESSI ON: BYSTOLIC MAY BE COVERED NOW WITH HIS NEW INSURANC E. WILL SEE IF THIS IMPROVES HIS FATIGUE. F/U 2-3 WKS; RECORDED 11/27/19 14 12:54PM BY SMITH CARLISLE, OFFICE VISIT Quan Baker MD [address], [place], [address] , [facility] 14:46:24 Tobacco user [id number] Completed 201301/16/2014 RECORDED 11/27/19 14 1:05PM BY SMITH CARLISLE, OFFICE VISIT Yvette Mittal PA-C [address], [place], [address] , [facility] 11:12:29 Respirat ory finding Completed 201301/16/2014 IMPRESSI ON: HE WAS INSTRUCT ED TO WEAN FROM HIS BYSTIOLI C TO SEE IF THIS IS CAUSING HIS DEE. HE WILL ALSO STOP THE FLOVENT SINCE THAT HASN'T BEEN HELPING. ; RECORDED 11/27/19 14 1:31PM BY QUAN OCHOA MD, OFFICE VISIT Yvette Mittal PA-C [address], [place], [address] , [facility] 11:12:30 Hyperlip idemia 07908713 Active 2016 Maria Del Rosario Connors cuca, [facility] 9 09:14:48 Primary erectile dysfunct ion 454032635 Active 2016 Maria Del Rosarioluca Connors cuca, [facility] 9 09:14:48 Palpitat ions 35602973 Active 2017 Maria Del Rosario Connors null, [facility] 9 09:14:48 Essentia l hyperten william 18715870 Active 2017 Maria Del Rosarioluca Connors [facility], [facility] 9 09:14:48 History of methicil bobby resistan t Staphylo coccus aureus infectio n [id number] Completed 201703/07/2018 Marlene juárez null, [facility] 8 13:51:31 Harmful pattern of use of alcohol 34408780 Active 2018 Luis F Connors MD [address], [place], [address] , [facility] 11:51:05 Severe major depressi on with psychoti c features 99970512 Active 2019 Valentina Scott null, [facility] 0 15:00:23 Alcohol dependen ce 95874671 Active 2019 Last drink was 11/30/24 Quan Baker MD [address], [place], [address] , [facility] 07:46:54 Severe obesity 30748133199 104 Active 2020 Tanvir Adkins MD null, [facility] 1 13:18:02 Sprain of right ankle 60359269966 852588 Active 2021 Seen at [facility]. Quan Baker MD [address], [place], [address] , [facility] 19:57:19 Liver enzymes level above referenc e range 236508911 Active 2021 Quan Baker MD [address] [facility] [address], [place], [address] , [facility] 15:39:41 COVID-19 428618104 Completed 202103/31/2023 UBALDO OLIVEIRA MD [address] [facility] [address], [place], [address] , [facility] 07:55:11 Influenz a caused by Influenz a A virus 092641031 Active 2022 Quan Baker MD [address] [facility] [address], [place], [address] , [facility] 08:07:22 Bipolar I disorder 543083033 Active 2022 Quan Baker MD [address] [facility] [address], [place], [address] , [facility] 18:19:44 Obsessiv e-compul sive disorder 227493079 Active 2022 Quan Baker MD [address] [facility] [address], [place], [address] , [facility] 18:19:57 Fever 262068156 Active 2022 AIDAN Kessler [address] [facility] [address], [place], [address] , [facility] 15:47:35 Viral syndrome 549100325 Active 2022 AIDAN Kessler [address] [address], [place], [address] , [facility] 16:04:12 Acne 34802293 Active 2022 Yvette Mittal PA-C [address] [facility] [address], [place], [address] , [facility] 09:11:20 Cirrhosi s of liver 99432368 Active [address] Petra Baker MD [address] [facility] [address], [place], [address] , [facility] 08:54:27 History of psychiat natanael disorder 231139563 Active 2024 This has been a recurren t problem for him requirin g multiple admissio ns sometime s for extended periods. Quan Baker MD [address] [address], [place], [address] , [facility] 07:46:57 Suicide attempt Active 2024 Tried to hang himself while living in a intermediate on 03/24/25 . [facility]. Quan Baker MD [address] [facility] [address], [place], [address] , [facility] 07:56:10 Problem Notes None recorded. Procedures Surgical History Date Name Laterality Status Provider Name and Address Organization Details Recorded Time 0 Suture/Stapl e removal completed Jerome Mittal PA-C [address] [facility] [address], [place], [address], [facility] 04/20/2020 10:20:08 6 Mini-Cog Test completed [place] [facility] 12/14/2015 14:56:52 3 Repair of nasal septum completed Radha Odonnell MA [facility] 10/06/2014 09:06:57 Imaging Results None recorded. Procedure Notes None recorded. Medical Equipment None Reported. Allergies Allergen ID Allergen Name Allergen Category Reaction Reaction Severity Criticality Documentation Date Start Date Code Code System Note Provider Name and Address Organization Details Recorded Time 15088 Bactrim medicatio n rash moderate Not available 06/22/2017 42568 9 RxNorm [place], [facility] 8 09:54:55 10131 Substance with sulfonami de structure and antibacte rial mechanism of action (substanc e) medicatio n rash Not available Not available 12/27/2019 43888 8003 SNOMED Fabiola Felipa nelson [facility] 0 09:26:43 47471 Remeron medicatio n palpitati ons tachycard ia Not available Not available Not available 12/27/2019 81233 4 RxNorm RUBÉN Martinez, [facility] 0 09:27:05 Medications Name Sig Start Date [...] tablet active RECORDED 02/11/20 08 11:06AM BY FABIOLA HERNANDEZ MA, OFFICE VISIT; Not Available Not [...] 13 2:47PM BY ISHA HOGUE, ANNOTATI ON/YOSEF WOLFE; Not Available Not Available [...] Updated DateTime 5 184.15 cm 34 kg/m2 779864. 46 g 70 /min 97 % 98 [degF] 113/74 mm[Hg] Pat Florez MA [facility] 5 09:10:56 Social History Question Answer Notes LastModified by Organizat ion Details LastModified Time Tobacco Smoking Status Current Every Day Smoker quit 04/23/22 06/21/23 started back 2 days ago Pat Florez MA [facility] 06/21/2023 10:36:25 Do You Have An Advance Directive? Yes [id number] Information not available 03/31/2020 Is Blood Transfusion Acceptable In An Emergency? Yes [id number] Information not available 03/31/2020 What Is Your Level Of Caffeine Consumption? Moderate Coffee- 2 Daily Information not available 06/21/2023 How Much Tobacco Do You Chew? None [id number] Information not available 03/31/2020 What Type Of Diet Are You Following? REGULAR Information not available 06/21/2023 Which Illicit Or Recreational Drugs Have You Used? None [id number] Information not available 03/31/2020 Are There Any Guns Present In Your Home? No [id number] Information not available 03/31/2020 Live Alone Or With Others? Alone Information not available 06/21/2023 Do You Take Precautions To Prevent Distracted Driving? Yes Information not available 04/30/2015 How Often Do You Need To Have Someone Help You When You Read Instructions, Pamphlets, Or Other Written Material From Your Doctor Or Pharmacy? Never [email or web address] Information not available 04/30/2015 Have You Served In The ? No [email or web address] Information not available 10/28/2016 Have You Or [...] Gathering In The Last 10 Days? No [email or web address] Information not available 06/29/2020 What Was The Date Of Your Most Recent Tobacco Screening? 09/21/2023 [email or web address] Information not available 09/21/2023 How Many Children Do You Have? 0 [id number] Information not available 03/31/2020 What Is Your Current Pack Years? 30ormorepack years Information not available 06/21/2023 Do You Use Protection During Sex? Usually [id number] Information not available 03/31/2020 Seat Belts Used Routinely Yes Information not available 04/30/2015 Are You Sexually Active? No [id number] Information not available 03/31/2020 Smoke Alarm In Home Yes Information not available 04/30/2015 At What Age Did You Start Smoking Tobacco? 18 Information not available 03/25/2020 Are You Passively Exposed To Smoke? Yes Information not available 03/25/2020 How Much Tobacco Do You Smoke? 0.5 PPD Information not available 03/25/2020 General Stress Level High Information not available 01/01/2014 Do You Use Sunscreen Routinely? Yes [id number] Information not available 03/31/2020 How Many Years [...] used smokeless tobacco? Never used smokeless tobacco [id number] Information not available 03/31/2020 Are you currently employed? No disabled; seconadry to mental health issues. Information not available 06/24/2023 Are you able to walk independently without assistance or assistive devices? YESWOREST Information not available 06/21/2023 Are you able to care for yourself independently? Yes sister (Lidia Mcconnell) [id number] Information not available 03/31/2020 What is your [...] Organization Details LastModified Time Mother Hypertensive disorder montrellm Not available 11/2015 10:25:16 Mother Valvuloplast y of aortic valve 75 79 [email or web address] Not available 10:37:00 Father Suicide 47 [email or web address] [...] pneumococcal polysaccharide PPV23 9 completed RUBÉN Rick [facility] 12/22/2021 13:26:56 Influenza, split virus, trivalent, preservative 0 completed RUBÉN José, [facility] 03/25/2020 13:05:19 tetanus toxoid, unspecified formulation 0 completed Jerome Mittal PA-C [address] [facility] [address], [place], [address], [facility] 04/20/2020 09:57:18 COVID-19, mRNA, LNP-S, PF, 30 mcg/0.3 mL dose 1 completed [facility] 12/22/2021 13:26:56 COVID-19, mRNA, LNP-S, PF, 30 mcg/0.3 mL dose 1 completed [facility] 12/22/2021 13:26:57 Influenza, split virus, quadrivalent, PF 5 [facility]/22[facility] 13:26:56 Influenza, split virus, quadrivalent, PF 6 completed RUBÉN Rick, [facility] 12/22/2021 13:26:56 Influenza, split virus, quadrivalent, PF 8 completed RUBÉN Rick, [facility] 12/22/2021 13:26:56 Influenza, split virus, quadrivalent, PF 7 completed RUBÉN Rick, [facility] 12/22/2021 13:26:56 Influenza, split virus, quadrivalent, PF 1 completed RUBÉN Rick, [facility] 12/22/2021 13:26:57 Influenza, split virus, trivalent, PF 4 completed RUBÉN Rick [facility] 12/22/2021 13:26:57 COVID-19, mRNA, LNP-S, PF, 30 mcg/0.3 mL dose 1 completed RUBÉN Rick [facility] 12/22/2021 13:26:57 Tdap 0 [facility] 13:26:57 Influenza, split virus, quadrivalent, PF 9 completed RUBÉN Rick [facility] 12/22/2021 13:26:57 Influenza, split virus, quadrivalent, PF 3 completed JANA Linn, [facility] 03/31/2023 11:07:57 Hep B, adolescent or pediatric 8 completed Not Available [facility] 06/22/2023 14:06:24 Hep B, adolescent or pediatric 8 completed Maria Del Rosario thurman [facility] 07/09/2018 09:14:42 Hep B, adolescent or pediatric 8 completed Maria Del Rosario thurman [facility] 07/09/2018 09:14:42 Td (adult), 2 Lf tetanus toxoid, preservative free, adsorbed 6 completed Maria Del Rosario thurman, [facility] 07/09/2018 09:14:42 Tdap 2 completed Maria Del Rosario thurman, [facility] 07/09/2018 09:14:42 Influenza, split virus, trivalent, preservative 3 completed RUBÉN Rick, [facility] 12/22/2021 13:26:57 Influenza, split virus, trivalent, PF 4 completed Quan Baker MD [address], [address], [facility] 04/06/2024 08:27:21 Influenza, split virus, trivalent, PF 5 completed Pat CesarRUBÉN Cardenas, [facility] 02/13/2025 09:22:16 Past Encounters Encounter ID Performer Location Encounter Start Date Encounter Closed Date Diagnosis/Indication Diagnosis SNOMED-CT Code Diagnosis ICD10 Code Diagnosis IMO Codes Diagnosis Note [id number] Quan Baker MD Main Office [address] [facility] [address] [place] [address] 01/28/2025 10:01:42 01/28/2025 10:53:00 [id number] Quan Baker MD Main Office [address] [address] 01/30/2025 10:58:41 01/30/2025 12:07:34 Severe major depression with psychotic features 40634398 F32.3 Bipolar I disorder 52148 6008 F31.9 On meds. Sees a therapist at [facility] weekly and a psychiatri st at the same facility every 8 weeks. Harmful pa ttern of use of alcohol 74664567 F10.99 This has been an intermitte nt problem and got worse since his mother less than 2 years ago. It has been an intermitte nt problem throughout his adult life. He stopped drinking a few weeks ago and is in a supervised setting. Alcohol dependence 75251 003 F10.20 He is currently living in a intermediate and finds this very helpful in keeping him sober. He likes the program. Body mass index 30+ - obesity 470737476 Z68.30 E66.9 [id number] Quan Baker MD Main Office [address] [address] 02/13/2025 09:02:00 02/13/2025 09:36:36 Needs influenza immunization 029058154 Z23 19 YEARS AND OLDER ONLY Plantar fasciitis 20271229 003 M72.2 41314 He will do exercises at home and will have reduced activities over the next 2 weeks. He will call for a podiatry referral in a couple of weeks if ther is no improvemen t. Plantar fa sciitis of right foot [id number] 6470665 M72.2 [id number] Health Concerns Section Related Observation LastModified by Organization Detai ls LastModified Time None Recorded Concern Status LastModified by Organization Details LastModified Time None Recorded Payers Encounter Date Sequence Insurance Name Policy Number Policy Cooper Covered Member ID Cooper Member ID Guarantor Name 02/13/2025 2 [place] [facility] Tahir Reyes [id number] Tahir Reyes 02/13/2025 1 [place] [employer] Tahir Reyes [id number] Tahir Reyes Notes Date Note Type Note Provider Name and Address Organization Details Recorded Time 02/13/2025 text/html He has been having pain at the bottom of his right foot that started a number of days ago when he was playing basketball. It hurts to bear weight and especially hurts when he first gets up in the am. He was seen at [facility] in [place] a couple of days ago (02/11/25) and had an xray done which was reportedly normal. We will get the records. Quan Baker MD [address] [address], [place], [address], [facility] 02/13/2025 09:48:08
[2025-05-04 12:26] LABS: MANUAL DIFF FLAG NO
[2025-05-04 12:27] LABS: Hematocrit 41.1 % (42.0-52.0); Hemoglobin 14.0 g/dl (14.0-18.0); Imm Gran Abs Auto 0.02 X10*3/uL (0.00-0.03); Imm Gran Pct Auto 0.3 % (0.0-0.4); Lymphocytes Absolute Auto 1.5 X10*3/uL (1.2-4.9); Mean Corpuscular HGB Conc 34.1 g/dl (31.0-36.0); Mean Corpuscular Hemoglobin 28.3 pg (27.0-33.0); Mean Corpuscular Volume 83.0 fL (80.0-98.0); NRBC Abs Auto 0.000 X10*3/uL (0.0-0.012); NRBC Pct Auto 0.0 /100WBC (0.0-0.2); Platelet Count 209 X10*3/uL (160-400); Red Blood Count 4.95 X10*6/uL (4.60-5.80); White Blood Count 7.9 X10*3/uL (4.8-10.8)
[2025-05-04 12:44] LABS: Acetaminophen LAB < 3 mcg/mL (<30); Salicylate < 5.0 mg/dL (15-30)
[2025-05-04 12:45] LABS: Alanine Aminotransferase 31 U/L (0-40); Albumin Level 4.8 g/dL (3.5-5.0); Alkaline Phosphatase 70 U/L (39-117); Anion Gap 12 (12-20); Aspartate Amino Transferase 22 U/L (5-37); Blood Urea Nitrogen 10 mg/dL (9-16); Calcium 9.5 mg/dL (8.4-10.2); Carbon Dioxide 25 mmol/L (22-29); Chloride 108 mmol/L (96-108); Creatinine Clr Calc Pharmacy 143.0; Estimated Glomerular Filt Rate > 60; Magnesium 2.1 mg/dL (1.6-2.6); Potassium 3.7 mmol/L (3.3-5.1); Sodium 141 mmol/L (135-145); Total Protein 7.3 g/dL (6.5-8.0)
[2025-05-04 13:08] LABS: Appearance Urine Cloudy; Glucose Urine UA Negative (Negative); PH 8.0 (5.0-9.0); Specific Gravity - Urine <= 1.005 (1.005-1.025)
[2025-05-04 13:09] LABS: Cannabinoid Screen Urine Not Detected (Not Detect)
--- NOTE | 2025-05-04 17:30 | PC.NURSE ---
Pt c/o feeling anxious, requesting prn clonazepam. Provider made aware and pt medicated w/ prn med
--- NOTE | 2025-05-04 18:30 | PC.NURSE ---
Pt resting comfortably without incident. 1:1 remains at bedside
--- NOTE | 2025-05-04 23:48 | PC.NURSE ---
Report to MICHELLE Forte via telephone
[2025-05-05] VITALS (7 sets, daily range): BP systolic 112–134; BP diastolic 74–79; PULSE 82–96; RESP 14–20; TEMP 36.6–37.3; O2SAT 95–96; BMI 32.8
--- NOTE | 2025-05-05 00:02 | PC.NURSE ---
assumed care of pt. Pt sleeping in stretcher, respirations even and unlabored. 1:1 sitter at bedside.
--- NOTE | 2025-05-05 09:01 | ECG_ITS ---
Test Reason : check qtc Blood Pressure : */* mmHG Vent. Rate : 88 BPM Atrial Rate : 88 BPM P-R Int : 134 ms QRS Dur : 94 ms QT Int : 388 ms P-R-T Axes : 41 -15 0 degrees QTcB Int : 469 ms Normal sinus rhythm Low voltage QRS Incomplete right bundle branch block Cannot rule out Anterior infarct , age undetermined Abnormal ECG When compared with ECG of 05-Sep-2024 18:36, No significant change was found Referred By: Fredis Preciado Electronically Signed By: DESI DE LEÓN MD
--- NOTE | 2025-05-05 14:55 | PHA.MEDREC ---
Addendum entered by Barber Burroughs [facility] 05/05/25 15:15: Reviewed by [facility] Addendum entered by Tavo Lang 05/05/25 15:12: Pt no longer taking his Bupropion; stating he hasn't taken those in over a month and he is not taking his Metformin anymore stating he hasn't taken them in a few weeks . Original Note: Pharmacy Consult ? Medication Reconciliation Pharmacy reviewed med rec done by nursing. Spoke with pt and he verified his medications. Pt states he is not taking Lidocaine patches anymore even as needed; nurse confirmed those, I took them off the med rec, he takes his Hydroxyzine 50mg tab TID as needed for anxiety and pt taking Lamptrigine 25mg tabs once daily; pt just got 50mg tabs filled 04/29 for 30 days but hasn't started taking those yet he states.
--- NOTE | 2025-05-05 19:11 | PC.ADMIT ---
Tahir (?Александр?) is a 44 yr old male admitted at approx 3:30PM, on a conditional voluntary, from [facility]. His history includes MDD, General Anxiety Disorder, Alcohol use disorder, HTN, Tachycardia & Sleep Apnea. He is known to [facility] from previous [facility] admissions. Александр presented to the ED with worsening depression, SI (plan to overdose on Konopin) and an episode of drinking alcohol after 5 months of sobriety. His tox screen was positive for opiates & his ETOH was 122. Александр is A&Ox4, calm & cooperative with the admission process. He is very tearful during assessment. He endorses feelings of guilt & letting down his loved ones. He feels like he?s lost his family?s trust. He is homeless at this time & had been staying at his friend Harman?s house. He?d had stable housing on the [employer] program but lost that after having three psych admissions. He admits an attempt to hang himself in the past. Александр reports a trauma history of his father committing suicide when he was 9yrs old & his cousin committing suicide a few years ago. Александр has a young niece (sister?s daughter) who he loves very much & he ?doesn?t want to do that to her?. He has a therapist & is between psychiatrists at this time, but had an appointment scheduled with a new one at [facility]. He signed FATOUMATA?s for current providers. His skin check is unremarkable with the exception of a small superficial scrape on his upper left back. Александр contracts for safety at this time. He was oriented to the unit & placed on 15min safety checks.
[2025-05-06 08:00] VITALS: BP 121/66; PULSE 84; TEMP 36.8; O2SAT 96
[2025-05-06 08:35] VITALS: BP 121/66; PULSE 84
[2025-05-06 08:56] LABS: Cholesterol 142 mg/dL (<200); HDL Cholesterol 39 mg/dL (>40); Magnesium 2.1 mg/dL (1.6-2.6); Triglycerides 77 mg/dL (<150)
[2025-05-06 09:14] LABS: Free T4 (Free Thyroxine) 1.20 ng/dL (0.71-1.85); Thyroid Stimulating Hormone 0.95 uIU/mL (0.32-4.0)
[2025-05-06 09:25] LABS: Folate 9.9 ng/mL (> or = 4.0); Vitamin B12 413 pg/mL (200-900)
--- NOTE | 2025-05-06 09:42 | HO.PSYADMNOT ---
HPI Date of Service: 05/06/25 Chief Complaint: bipolar disorder, depressed, alcohol use disorder Sources of Information: patient interviewed, chart reviewed and crisis/core team assessment reviewed HPI Subjective Notes: Conditional Voluntary Narrative: Patient seen at 11:30 on Pt is a 44 yo male with hx of MDD, anxiety/panic attacks, JESSICA and alcohol abuse who presents for worsening anxiety and vague SI in face of medication changes, having just been discharged from [facility] yesterday. Patient reports that when he left in January he was doing well for a little while but then got suicidal and went to [facility] where he was started on Wellbutrin. Patient said for 2 months he was doing well on Wellbutrin, feeling more like himself and continued to go [facility]. Patient said that despite doing well, suddenly, without any warning he became very anxious and depressed for 1 day wanted to hang himself; he told staff and was admitted to [facility] where he was taken off Wellbutrin and instead started on lithium which he said he did not want. Patient remained feeling sad throughout the admission, was discharged this past Monday, went to a friend's, drank a half pt of whiskey after 5 months of sobriety again became suicidal resulting in this admission. Patient reports he has had trouble sleeping for weeks and keeps waking up about 02:00; he just feels tired all day long and wishes he could sleep; no other manic symptoms. No drug use. Past Psychiatric History: Hospital stays: Last admission to spring 2022. IN 2013 He had ECT . has had at least 3 hosps. also has done PHP at least once, which he found helpful, and some [facility] stays. no h/o suicide attempts (but did place a plastic bag over his head during [facility] stay once). h/o SIB - cutting. has required stitches in the past. also slapping himself in the face. Therapist is HOANG Pang. Psychiatrist is HOANG Sanchez. HISTORY OF SEROTONIN SYNDROME Treatment trials: ECT: Said after 6 sessions had body numbness; feels that memory has not been the same since Serotonin syndrome on Zoloft and mirtazapine [place]: Said it made him feel better but his outpatient provider discontinued it saying he did not need it Effexor, Zoloft, Luvox, Wellbutrin (only on for a few weeks but was worried about increased heart rate so discontinued) Depakote: [place] sedated Medical Evaluation Reviewed: Hospitalist Eugene Pending [facility] Medical History (Updated 05/06/25 @ 14:41 by Sona Garg DNP) Homeless Adjustment disorder with mixed disturbance of emotions and conduct in remission JESSICA (generalized anxiety disorder) Alcohol abuse Sleep apnea MDD (major depressive disorder), recurrent episode, severe Alcohol use disorder, mild, in controlled environment, abuse Transaminitis Tachycardia HTN (hypertension) Family History: Father committed suicide when patient was 9 years old; father with alcohol use disorder. Aunt alcohol use disorder sister - bipolar disorder Cousin completed suicide Social History: Lived with his mother. Mother last year 10/29/21 youngest of 4 children. father suicided when pt was 9 yo. 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 single. No children. Substance History: Five months sobriety from alcohol; only drank for 1 day just prior to this admission Trauma History: Father's suicide when patient was 9 years old Diagnostics Vital Signs (24Hr): Vital Signs - 24 hr 05/05/25 15:33 05/05/25 20:00 05/05/25 20:19 Temperature 99.1 F 98.3 F Pulse Rate 84 82 96 Respiratory Rate 20 20 Blood Pressure 134/79 121/74 121/74 Pulse Oximetry 96 96 Oxygen Delivery Method Room Air Room Air 05/06/25 08:35 05/06/25 08:35 Temperature Pulse Rate 84 Respiratory Rate Blood Pressure 121/66 121/66 Pulse Oximetry Oxygen Delivery Method BMI result Body Mass Index 32.8 Labs 05/04/25 12:20 05/04/25 12:20 Labs: Laboratory Results - last 48 hr 05/04/25 05/04/25 05/06/25 12:20 12:43 08:04 WBC 7.9 RBC 4.95 Hgb 14.0 Hct 41.1 L MCV 83.0 MCH 28.3 MCHC 34.1 RDW 12.5 Plt Count 209 MPV 9.3 L Immature Gran % (Auto) 0.3 Neut % (Auto) 71.2 Lymph % (Auto) 19.3 L [place] % (Auto) 6.7 Eos % (Auto) 1.9 Baso % (Auto) 0.6 Lymph # (Auto) 1.5 [place] # (Auto) 0.5 Eos # (Auto) 0.2 Baso # (Auto) 0.1 Abs Immat Gran (auto) 0.02 Absolute Neuts (auto) 5.6 Absolute Nucleated RBC 0.000 Nucleated RBC % (auto) 0.0 Sodium 141 Potassium 3.7 Chloride 108 Carbon Dioxide 25 Anion Gap 12 BUN 10 Creatinine 0.90 Estim Creat Clear Calc 143.0 Estimated GFR > 60 Random Glucose 123 H Estimat Average Glucose 100 Hemoglobin A1c % 5.1 Calcium 9.5 Magnesium 2.1 2.1 Total Bilirubin 0.7 Direct Bilirubin 0.2 AST 22 ALT 31 Alkaline Phosphatase 70 Total Protein 7.3 Albumin 4.8 Triglycerides 77 Cholesterol 142 LDL Cholesterol, Calc 88 HDL Cholesterol 39 L Vitamin B12 413 Folate 9.9 TSH 0.95 Free T4 1.20 Urine Color Yellow Urine Appearance Cloudy Urine pH 8.0 Ur Specific [place] <= 1.005 Urine Protein Negative Urine Glucose (UA) Negative Urine Ketones Negative Urine Blood Negative Urine Nitrite Negative Ur Leukocyte Esterase Negative Salicylates < 5.0 L Urine Opiates Screen POSITIVE H Ur Buprenorphine Scrn Not Detected Ur Oxycodone Screen Not Detected Urine Methadone Screen Not Detected Urine Fentanyl Screen Not Detected Acetaminophen < 3 Ur Barbiturates Screen Not Detected Ur Phencyclidine Scrn Not Detected Ur Amphetamines Screen Not Detected U Benzodiazepines Scrn Not Detected Urine Cocaine Screen Not Detected U Marijuana (THC) Screen Not Detected Ethyl Alcohol 122 Meds/Allergies Meds Home Medications ?Medication ?Instructions ?Recorded ?Confirmed ?Type clonazepam 1 mg tablet 1 mg PO BID PRN Anxiety 06/29/23 05/05/25 History atorvastatin 20 mg tablet 20 mg PO BEDTIME cholesterol 03/01/24 05/05/25 History amlodipine 10 mg tablet 10 mg PO DAILY blood pressure 09/06/24 05/05/25 History lamotrigine 25 mg tablet 25 mg PO DAILY 09/06/24 05/05/25 History albuterol sulfate 90 mcg/actuation 2 puff inhalation Q4H PRN 01/02/25 05/05/25 History aerosol inhaler Shortness Of Breath hydroxyzine pamoate 50 mg capsule 50 mg PO TID PRN Anxiety 01/02/25 05/05/25 History fluoxetine 10 mg capsule 10 mg PO DAILY 05/05/25 05/05/25 History melatonin 5 mg tablet 5 mg PO BEDTIME 05/05/25 05/05/25 History propranolol 20 mg tablet 20 mg PO BID 05/05/25 05/05/25 History trazodone 50 mg tablet 50 mg PO BEDTIME PRN insomnia 05/05/25 05/05/25 History Allergies Allergies Allergy/AdvReac Type Severity Reaction Status Date / Time mirtazapine (MIRTAZAPINE) Allergy Intermediate UNKNOWN Verified 05/04/25 11:34 sulfamethoxazole (From Allergy Unknown RASH Verified 05/04/25 11:34 BACTRIM) trimethoprim (From BACTRIM) Allergy Unknown RASH Verified 05/04/25 11:34 Mental Status Exam Mental Status Exam Narrative: Pt is alert and oriented; behavior is tearful, anxious; cooperative; patient is not in distress; dressed in hospital attire, tattoos on arms and neck; unkempt hair and scruffy looking; mood is described as depressed... Anxious and affect congruent, tearful, downcast; eye contact appropriate; Speech is normal rate, volume and prosody and not pressured; a little of both psychomotor agitation/retardation present; thought process is goal directed; Thought content is on tx; otherwise pertinent to relevant topics and without any delusional content, paranoid ideations or grandiosity; intermittent SI; no HI. Denies AVH and there is no evidence of perceptual disturbance. Patients insight and judgment impaired Assessment & Plan Assessment & Plan (1) MDD (major depressive disorder), recurrent episode, severe: Status: Acute Qualifiers: Psychotic features: without psychotic features Qualified Code(s): F33.2 - Major depressive disorder, recurrent severe without psychotic features Code(s): F33.2 - Major depressive disorder, recurrent severe without psychotic features (2) JESSICA (generalized anxiety disorder): Status: Acute Code(s): F41.1 - Generalized anxiety disorder (3) Panic disorder: Status: Acute Code(s): F41.0 - Panic disorder [episodic paroxysmal anxiety] (4) Obsessive compulsive disorder: Status: Acute Qualifiers: Obsessive-compulsive disorder type: unspecified Qualified Code(s): F42.9 - Obsessive-compulsive disorder, unspecified Code(s): F42.9 - Obsessive-compulsive disorder, unspecified (5) Alcohol abuse: Status: Acute Code(s): F10.10 - Alcohol abuse, uncomplicated (6) HTN (hypertension): Status: Acute Code(s): I10 - Essential (primary) hypertension (7) Sleep apnea: Status: Acute Code(s): G47.30 - Sleep apnea, unspecified (8) Homeless: Status: Acute Code(s): Z59.00 - Homelessness unspecified Plan HPI: Pt is a 44 yo male with hx of MDD, anxiety/panic attacks, JESSICA and alcohol abuse who presents for worsening anxiety and vague SI in face of medication changes, having just been discharged from [facility] yesterday. Patient reports that when he left in January he was doing well for a little while but then got suicidal and went to [facility] where he was started on Wellbutrin. Patient said for 2 months he was doing well on Wellbutrin, feeling more like himself and continued to go [facility]. Patient said that despite doing well, suddenly, without any warning he became very anxious and depressed for 1 day wanted to hang himself; he told staff and was admitted to [facility] where he was taken off Wellbutrin and instead started on lithium which he said he did not want. Patient remained feeling sad throughout the admission, was discharged this past Monday, went to a friend's, drank a half pt of whiskey after 5 months of sobriety again became suicidal resulting in this admission. Patient reports he has had trouble sleeping for weeks and keeps waking up about 02:00; he just feels tired all day long and wishes he could sleep; no other manic symptoms. No drug use. Formulation/clinical reasoning: Patient seems to do overall well and then for unknown reasons will have 1 day where he gets very dysregulated and suicidal which lands him in the hospital; it seems that these bouts of dysregulated are transient if he could stay out of the hospital for that 1 day, it would resolve on its own. Although patient said he did not like lithium at [facility], he has reported that he was on lithium in the past and he thought it was helpful and was not sure why it was ever discontinued. Patient does not seem to have discrete manic episodes but will review history again. He does have a history of OCD listed for which he was using Prozac but by patient's own report he seemed to have been doing well on Wellbutrin (plus or minus Lamictal) and would like to restart that now. That said, lithium might be helpful as well. Patient only drank for 1 day so does not need CIWA. Intermittent SI but patient says he feels he will be safe on the unit; Currently no SI. Part of patient's extreme anxiety is that he is now homeless and feels ashamed that his family is angry at him. Plan: CV Q 15 minute checks CPAP q.h.s. Restart Wellbutrin XL 150 mg daily Continue hydroxyzine 50 mg t.i.d. continue Zyprexa 10 mg q.h.s. continue Lamictal 25 mg daily; Restarted on Lamictal at [facility] after having been off for couple of weeks (used to be on 06/17 5 mg) Continue propranolol 20 mg b.i.d. continue amlodipine 10 mg daily Continue atorvastatin 20 mg q.h.s. Continue trazodone 100 mg q.h.s. Continue clonazepam 1 mg b.i.d. p.r.n. Consider: Consider clonidine 0.1 mg daily p.r.n. Consider Zyprexa 2.5 mg q.4 AH p.r.n. Patient used to be on: Prozac 80 mg daily for OCD Metformin 500 mg daily for metabolic syndrome since on Zyprexa Naltrexone 50 mg daily for alcohol cravings Patient educated on: diagnosis, medication risk/benefits, substance abuse and therapeutic strategies Informed Consent: understands and further education needed Reason for continued inpatient stay Substantial Risk for: rapid decompensation Statement Statement: I have reviewed the history and physical and performed a pertinent examination on my patient. No changes have occurred unless specified. If the History and Physical was not performed prior to admission, the Hospitalist's service will be consulted for completing the admission physical. Time Spent With Patient Time: Total time managing care of this patient today ____ minutes.
[2025-05-06] MEDS: buPROPion HCl XL 150 MG TAB.ER.24H PO (12:21)
--- NOTE | 2025-05-06 14:30 | P.CONHOSP_ITS ---
History of Present Illness Data of Consult Service Date: 05/06/25 Primary Care Provider: Quan Baker MD [facility] Reason for consult: Medical consult 44-year-old male with a past medical history of bipolar 1 disorder, major depressive disorder, panic disorder, GERD, hyperlipidemia, hypertension, adjustment disorder, sleep apnea, history of transaminitis, alcohol use disorder and OCD presented to the emergency room at [facility] with increased depression and suicidal ideation with plan to overdose on Klonopin. Patient reported that he recently relapsed alcohol use after being sober for 5 months. Initial ED workup revealed no leukocytosis, no anemia, no evidence of renal or liver impairment, no electrolyte imbalances. Urine without evidence of infection, EtOH level on admit 122. U tox positive for opiates. On exam his biggest concern is not being able to sleep. His vitals were stable. Lipid panel within normal limits, liver function tests within normal limits. TSH normal 1.20. His hemoglobin A1c is 5.1. Review of Systems 2 Review of Systems: Denies any shortness of breath, chest pain, headaches, dysuria, abdominal pain or discomfort, nausea, vomiting or diarrhea. Denies fever or chills. [facility] Medical History (Updated 05/06/25 @ 14:41 by Sona Garg DNP) Adjustment disorder with mixed disturbance of emotions and conduct in remission JESSICA (generalized anxiety disorder) Alcohol abuse Sleep apnea MDD (major depressive disorder), recurrent episode, severe Alcohol use disorder, mild, in controlled environment, abuse Transaminitis Tachycardia HTN (hypertension) Social History Household Members: None Household Members Other:: Patient reports lives in a long-term with 15 other persons has own room Housing: Homeless Do you presently have visiting nurse or other home services: No Alcohol intake: current Alcohol intake frequency: 3 or more drinks per day Alcohol type: hard liquor Patient Tobacco Use Status: Current everyday Tobacco user Tobacco use type: Cigarette Cigarette Packs Per Day: 0.5 Cigarettes Per Day: 10.0 Years Smoked: 28 Smoked in Last 30 Days: Yes e-Cigarette/Vaping Use: Currently Using Frequency of e-Cigarette/Vaping Use: daily Patient Interested in Nicotine Replacement: Yes Patient Given Instructions on How to Stop Smoking: No Second Hand Smoke Exposure: No Use of substances other than those prescribed or required for medical reasons: No Currently Displaying Signs/Symptoms of Drug Intoxication Withdrawal: No Have you been hit, kicked, punched, or otherwise hurt by someone within the past year? If so, by whom?: No Do you feel safe in your current relationship?: No Current Relationship Is there a partner from a previous relationship who is making you feel unsafe now?: No Are you made to feel afraid or neglected: No Advance Directives: No Advance Directives Information Provided: No Do you have thoughts of harming others: None Do you have a plan to hurt others: No Plan Recently lost weight without trying: No Eating poorly because of decreased appetite: No Nutrition Risks: No Nutritional Risk Poor oral hygiene: No service: No Sexual orientation: Decline to Answer Meds Allergies Allergy/AdvReac Type Severity Reaction Status Date / Time mirtazapine (MIRTAZAPINE) Allergy Intermediate UNKNOWN Verified 05/04/25 11:34 sulfamethoxazole (From Allergy Unknown RASH Verified 05/04/25 11:34 BACTRIM) trimethoprim (From BACTRIM) Allergy Unknown RASH Verified 05/04/25 11:34 Active Medications: Current Medications Acetaminophen (Acetaminophen 325 Mg Tablet) 650 mg PO Q6H PRN PRN Reason: Headache/Pain, Scale 1-10 Al Hydroxide/Mg Hydroxide (Magnesium Hydrox/Alum Hydrox 30 Ml Oral.Susp) 30 ml PO Q6H PRN PRN Reason: Heartburn/Nausea Albuterol Sulfate (Albuterol Sulfate 90 Mcg 8 Gm Inhaler) 2 puff INHALE Q4H PRN PRN Reason: Shortness of Breath Amlodipine Besylate (Amlodipine Besylate 10 Mg Tablet) 10 mg PO DAILY [facility]; Protocol Last Admin: 05/06/25 08:35 Dose: 10 mg Atorvastatin Calcium (Atorvastatin Calcium 20 Mg Tablet) 20 mg PO BEDTIME MARTINEZ Last Admin: 05/05/25 20:19 Dose: 20 mg Bupropion HCl (Bupropion Hcl Xl 150 Mg Tab.Er.24h) 150 mg PO DAILY MARTINEZ Last Admin: 05/06/25 12:21 Dose: 150 mg Clonazepam (Clonazepam 1 Mg Tablet) 1 mg PO BID PRN PRN Reason: Anxiety Last Admin: 05/06/25 08:36 Dose: 1 mg Folic Acid (Folic Acid 1 Mg Tablet) 1 mg PO DAILY MARTINEZ Last Admin: 05/06/25 08:36 Dose: 1 mg Hydroxyzine HCl (Hydroxyzine Hcl 50 Mg Tablet) 50 mg PO TID [facility] Last Admin: 05/06/25 08:35 Dose: 50 mg Lamotrigine (Lamotrigine 25 Mg Tablet) 25 mg PO DAILY [facility] Last Admin: 05/06/25 08:36 Dose: 25 mg Lidocaine (Lidocaine 4 % Patch Adh..Patch) 1 patch TRANSDERMA DAILY MARTINEZ; Protocol Lorazepam (Lorazepam 1 Mg Tablet) 1 mg PO Q2H PRN PRN Reason: ciwa 6-10 Lorazepam (Lorazepam 1 Mg Tablet) 2 mg PO Q2H PRN PRN Reason: ciwa 11+ Magnesium Hydroxide (Milk Of Magnesia 30 Ml Oral.Susp) 30 ml PO DAILY PRN PRN Reason: Constipation Melatonin (Melatonin 3 Mg Tablet) 6 mg PO BEDTIME [facility] Last Admin: 05/05/25 20:18 Dose: 6 mg Multivitamins/Vitamin C (Multivitamin Tablet) 1 tab PO DAILY [facility] Last Admin: 05/06/25 08:36 Dose: 1 tab Nicotine (Nicotine 21 Mg Patch.Td24) 21 mg TRANSDERMA DAILY PRN PRN Reason: Pain, Mild (Pain Scale 1-3) Nicotine Polacrilex (Nicotine Polacrilex 2 Mg Gum) 4 mg BUCCAL Q2H PRN PRN Reason: Nicotine Cravings Olanzapine (Olanzapine 10 Mg Tablet) 10 mg PO BEDTIME [facility] Last Admin: 05/05/25 20:18 Dose: 10 mg Propranolol HCl (Propranolol Hcl 20 Mg Tablet) 20 mg PO BID MARTINEZ; Protocol Last Admin: 05/06/25 08:35 Dose: 20 mg Thiamine HCl (Thiamine Hcl 100 Mg Tablet) 100 mg PO DAILY [facility] Last Admin: 05/06/25 08:36 Dose: 100 mg Trazodone HCl (Trazodone Hcl 50 Mg Tablet) 50 mg PO BEDTIME PRN PRN Reason: Insomnia Last Admin: 05/05/25 20:22 Dose: 50 mg Trazodone HCl (Trazodone Hcl 100 Mg Tablet) 100 mg PO BEDTIME [facility] Home Medications ?Medication ?Instructions ?Recorded ?Confirmed ?Last Taken ?Type clonazepam 1 mg tablet 1 mg PO BID PRN Anxiety 06/2105/05/25 01/01/25 History atorvastatin 20 mg tablet 20 mg PO BEDTIME cholesterol 03/01/24 05/05/25 01/01/25 History amlodipine 10 mg tablet 10 mg PO DAILY blood pressur e 09/06/24 05/05/25 01/02/25 History lamotrigine 25 mg tablet 25 mg PO DAILY 09/06/2401/2001/02/25 History albuterol sulfate 90 mcg/actuation 2 puff inhalation Q 4H PRN 01/02/25 05/05/25 Unknown History aerosol inhaler Shortness Of Breath hydroxyzine pamoate 50 mg capsule 50 mg PO TID PRN Anx iety 01/02/25 05/05/25 Unknown History fluoxetine 10 mg capsule 10 mg PO DAILY 05/05/2501/20 Unknown History melatonin 5 mg tablet 5 mg PO BEDTIME 05/05/2501/20 Unknown History propranolol 20 mg tablet 20 mg PO BID 05/05/25 Unknown History trazodone 50 mg tablet 50 mg PO BEDTIME PRN insomni a 05/05/25 05/05/25 Unknown History Physical Exam 2 Vital Signs and Narrative: Vital Signs: Last Vital Signs Temp 98.2 F 05/06/25 08:00 Pulse 84 05/06/25 08:35 Resp 20 05/05/25 20:00 BP 121/66 05/06/25 08:35 Pulse Ox 96 05/06/25 08:00 O2 Del Method Room Air 05/06/25 08:00 BMI result Body Mass Index 32.8 Alert and oriented X3, calm and cooperative. Answers questions. Neuro: CN II-X11 intact, no deficits, visual acuity intact EYES: PERRLA, EOM intact ENT: Hearing intact, MMM Cardiac: S1 S2 RRR, No ectopy Pulmonary: lungs clear to auscultation, No increased WOB. Abdominal: BS active in all 4 quadrants, no guarding or tenderness MSK: Strength 5/5 upper and lower extremities : Deferred Extremities: No edema in lower extremities Psych: Mood stable, Quiet and cooperative. Skin: Warm and dry, Intact Results Labs 05/04/25 12:20 05/04/25 12:20 Labs: Laboratory Results - last 24 hr 05/06/25 08:04 Estimat Average Glucose 100 Hemoglobin A1c % 5.1 Magnesium 2.1 Triglycerides 77 Cholesterol 142 LDL Cholesterol, Calc 88 HDL Cholesterol 39 L Vitamin B12 413 Folate 9.9 TSH 0.95 Free T4 1.20 Assessment and Plan (1) HTN (hypertension): Status: Acute Plan 44-year-old male with past medical history listed below presented to the emergency room with increased depression and suicidal ideation, recent relapse from EtOH use after having been sober for 5 months. Patient is admitted for psychiatric stabilization. Bipolar 1 disorder/MDD/panic disorder/adjustment disorder/EtOH use disorder/OCD Treatment per psychiatric team Not in acute withdrawal at time of examination. Continue thiamine, folic acid and multivitamin GERD Tums as needed HLD/HTN Continue propranolol, Norvasc, and Lipitor. Sleep apnea Home CPAP machine Thank you for allowing me to participate in the care of this patient. Will follow with you, please notify medical provider with any changes in condition or concerns.
[2025-05-06 20:00] VITALS: BP 110/71; PULSE 72; RESP 18; TEMP 36.9; O2SAT 97
[2025-05-06 20:12] VITALS: BP 110/71; PULSE 72
--- NOTE | 2025-05-07 07:25 | PC.NURSE ---
At approximately 0700, noises from this patients room alerted this production underwriter to an issue. Upon entering the room, this production underwriter saw Tahir with an electrical cord wrapped around his neck, from his CPAP machine. This production underwriter and an MHC were able to get the cord away from Tahir. He then stated I haven't slept at all in weeks, I just want to ! Patient was able to regain behavioral control after therapeutic communication. Patient is now a 1:1 for his safety.
[2025-05-07 09:26] VITALS: BP 130/82; PULSE 77
[2025-05-07] MEDS: buPROPion HCl XL 150 MG TAB.ER.24H PO (09:26)
--- NOTE | 2025-05-07 13:12 | P.PNPSI_ITS ---
Subjective Subjective Date of Service: 05/07/25 Reason For Visit: bipolar disorder, depressed, alcohol use disorder Interim History: Met with patient; discussed with team Early this morning patient found sitting in his room with CPAP to around his neck; it was not tight and patient was not in the process of trying to hang himself. He said i was so tired...i had not slept...it was a desperate moment...i felt like shit...so many things on my mind, like a non-stop carosel of worry... Patient says it was a cry for help. Discussed history and patient able to identify some of the things that went into his decompensation that resulted in the [facility] admission which included a staff member at the program saying something unkind to him and accusatory which made him very anxious and which he felt was unfair; he said he just thought about it over and over until he became very overwhelmed and then suddenly suicidal. Patient agrees that if he had someone to talk to that he probably could have short circuiting the spiral and rebounded on his own without inpatient admission. Discussed medications at length and patient agrees with continuing Wellbutrin titration since he said it really seemed to help last time he was on it. Discussed lithium again and patient anxious about it saying he got palpitations last time he was tried Mental Status Exam Mental Status Exam Narrative: Pt is alert and oriented; behavior is more calm, in better control; more social in the milieu and cooperative, friendly on approach; patient is not in distress; dressed in casual attire with unkempt hair; mood is described as okay and affect congruent; eye contact appropriate; Speech is normal rate, volume and prosody and not pressured; intermittent psychomotor agitation/retardation present; thought process is organized and goal directed; Thought content is on treatment, psychosocial stressors, what his family thinks about him; otherwise pertinent to relevant topics and without any delusional content, paranoid ideations or grandiosity; denies any SI/HI. Denies AVH and there is no evidence of perceptual disturbance. Patients insight and judgment impaired but improving Diagnostics Vital Signs (24Hr): Vital Signs - 24 hr 05/06/25 20:00 05/06/25 20:12 05/07/25 09:26 Temperature 98.4 F Pulse Rate 72 72 77 Respiratory Rate 18 Blood Pressure 110/71 110/71 130/82 Pulse Oximetry 97 Oxygen Delivery Method Room Air BMI result Body Mass Index 32.8 Labs 05/04/25 12:20 05/04/25 12:20 Labs: Laboratory Results - last 48 hr 05/06/25 08:04 Estimat Average Glucose 100 Hemoglobin A1c % 5.1 Magnesium 2.1 Triglycerides 77 Cholesterol 142 LDL Cholesterol, Calc 88 HDL Cholesterol 39 L Vitamin B12 413 Folate 9.9 TSH 0.95 Free T4 1.20 Medications Medications Current Medications Acetaminophen (Acetaminophen 325 Mg Tablet) 650 mg PO Q6H PRN PRN Reason: Headache/Pain, Scale 1-10 Al Hydroxide/Mg Hydroxide (Magnesium Hydrox/Alum Hydrox 30 Ml Oral.Susp) 30 ml PO Q6H PRN PRN Reason: Heartburn/Nausea Albuterol Sulfate (Albuterol Sulfate 90 Mcg 8 Gm Inhaler) 2 puff INHALE Q4H PRN PRN Reason: Shortness of Breath Amlodipine Besylate (Amlodipine Besylate 10 Mg Tablet) 10 mg PO DAILY [facility]; Protocol Last Admin: 05/07/25 09:27 Dose: 10 mg Atorvastatin Calcium (Atorvastatin Calcium 20 Mg Tablet) 20 mg PO BEDTIME [facility] Last Admin: 05/06/25 20:13 Dose: 20 mg Bupropion HCl (Bupropion Hcl Xl 150 Mg Tab.Er.24h) 150 mg PO DAILY [facility] Last Admin: 05/07/25 09:26 Dose: 150 mg Calcium Carbonate (Calcium Carbonate 750 Mg Tab.Chew) 750 mg PO Q6H PRN PRN Reason: Heartburn Clonazepam (Clonazepam 1 Mg Tablet) 1 mg PO BID PRN PRN Reason: Anxiety Last Admin: 05/07/25 07:39 Dose: 1 mg Folic Acid (Folic Acid 1 Mg Tablet) 1 mg PO DAILY [facility] Last Admin: 05/07/25 09:26 Dose: 1 mg Hydroxyzine HCl (Hydroxyzine Hcl 50 Mg Tablet) 50 mg PO TID [facility] Last Admin: 05/07/25 09:26 Dose: 50 mg Lamotrigine (Lamotrigine 25 Mg Tablet) 25 mg PO DAILY [facility] Last Admin: 05/07/25 09:26 Dose: 25 mg Lidocaine (Lidocaine 4 % Patch Adh..Patch) 1 patch TRANSDERMA DAILY [facility]; Protocol Last Admin: 05/07/25 09:28 Dose: Not Given Magnesium Hydroxide (Milk Of Magnesia 30 Ml Oral.Susp) 30 ml PO DAILY PRN PRN Reason: Constipation Melatonin (Melatonin 3 Mg Tablet) 6 mg PO BEDTIME [facility] Last Admin: 05/06/25 20:12 Dose: 6 mg Multivitamins/Vitamin C (Multivitamin Tablet) 1 tab PO DAILY [facility] Last Admin: 05/07/25 09:26 Dose: 1 tab Nicotine (Nicotine 21 Mg Patch.Td24) 21 mg TRANSDERMA DAILY PRN PRN Reason: Pain, Mild (Pain Scale 1-3) Nicotine Polacrilex (Nicotine Polacrilex 2 Mg Gum) 4 mg BUCCAL Q2H PRN PRN Reason: Nicotine Cravings Olanzapine (Olanzapine 10 Mg Tablet) 10 mg PO BEDTIME [facility] Last Admin: 05/06/25 20:12 Dose: 10 mg Propranolol HCl (Propranolol Hcl 20 Mg Tablet) 20 mg PO BID [facility]; Protocol Last Admin: 05/07/25 09:26 Dose: 20 mg Thiamine HCl (Thiamine Hcl 100 Mg Tablet) 100 mg PO DAILY [facility] Last Admin: 05/07/25 09:26 Dose: 100 mg Trazodone HCl (Trazodone Hcl 50 Mg Tablet) 50 mg PO BEDTIME PRN PRN Reason: Insomnia Last Admin: 05/05/25 20:22 Dose: 50 mg Trazodone HCl (Trazodone Hcl 100 Mg Tablet) 100 mg PO BEDTIME [facility] Last Admin: 05/06/25 20:13 Dose: 100 mg Allergies Allergies Allergy/AdvReac Type Severity Reaction Status Date / Time mirtazapine (MIRTAZAPINE) Allergy Intermediate UNKNOWN Verified 05/04/25 11:34 sulfamethoxazole (From Allergy Unknown RASH Verified 05/04/25 11:34 BACTRIM) trimethoprim (From BACTRIM) Allergy Unknown RASH Verified 05/04/25 11:34 Assessment & Plan Assessment & Plan (1) MDD (major depressive disorder), recurrent episode, severe: Qualifiers: Psychotic features: without psychotic features Qualified Code(s): F33.2 - Major depressive disorder, recurrent severe without psychotic features Status: Acute Code(s): F33.2 - Major depressive disorder, recurrent severe without psychotic features (2) JESSICA (generalized anxiety disorder): Status: Acute Code(s): F41.1 - Generalized anxiety disorder (3) Panic disorder: Status: Acute Code(s): F41.0 - Panic disorder [episodic paroxysmal anxiety] (4) Alcohol abuse: Status: Acute Code(s): F10.10 - Alcohol abuse, uncomplicated (5) HTN (hypertension): Status: Acute Code(s): I10 - Essential (primary) hypertension (6) Sleep apnea: Status: Acute Code(s): G47.30 - Sleep apnea, unspecified (7) Homeless: Status: Acute Code(s): Z59.00 - Homelessness unspecified Plan HPI: Pt is a 44 yo male with hx of MDD, anxiety/panic attacks, JESSICA and alcohol abuse who presents for worsening anxiety and vague SI in face of medication changes, having just been discharged from [facility] yesterday. Patient reports that when he left in January he was doing well for a little while but then got suicidal and went to [facility] where he was started on Wellbutrin. Patient said for 2 months he was doing well on Wellbutrin, feeling more like himself and continued to go to [facility]. Patient said that despite doing well, suddenly, without any warning he became very anxious and depressed for 1 day wanted to hang himself; he told staff and was admitted to [facility] where he was taken off Wellbutrin and instead started on lithium which he said he did not want. Patient remained feeling sad throughout the admission, was discharged this past Monday, went to a friend's, drank a half pt of whiskey after 5 months of sobriety again became suicidal resulting in this admission. Patient reports he has had trouble sleeping for weeks and keeps waking up about 02:00; he just feels tired all day long and wishes he could sleep; no other manic symptoms. No drug use. Formulation/clinical reasoning: Patient seems to do overall well and then for unknown reasons will have 1 day where he gets very dysregulated and suicidal which lands him in the hospital; it seems that these bouts of dysregulated are transient if he could stay out of the hospital for that 1 day, it would resolve on its own. Although patient said he did not like lithium at [facility], he has reported that he was on lithium in the past and he thought it was helpful and was not sure why it was ever discontinued. Patient does not seem to have discrete manic episodes but will review history again. He does have a history of OCD listed (though does not seem to have this) for which he was using Prozac but by patient's own report he seemed to have been doing well on Wellbutrin (plus or minus Lamictal) and would like to restart that now. That said, lithium might be helpful as well. Patient only drank for 1 day so does not need CIWA. Intermittent SI but patient says he feels he will be safe on the unit; Currently no SI. Part of patient's extreme anxiety is that he is now homeless and feels ashamed that his family is angry at him. -reviewed hx and no hx of discreet manic episodes or behaviors. 05/07 Early this morning patient found sitting in his room with CPAP to around his neck; it was not tight and patient was not in the process of trying to hang himself. He said i was so tired...i had not slept...it was a desperate moment...i felt like shit...so many things on my mind, like a non-stop carosel of worry... Patient says he was crying loudly before hand to draw attention to himself and was this was not an attempt but a cry for help. [employer] agrees pt does not need 1:1 Discussed history and patient able to identify some of the things that went into his decompensation that resulted in the [facility] admission which included a staff member at the program saying something unkind to him and accusatory which made him very anxious and which he felt was unfair; he said he just thought about it over and over until he became very overwhelmed and then suddenly suicidal. Patient agrees that if he had someone to talk to that he probably could have short circuiting the spiral and rebounded on his own without inpatient admission. Discussed medications at length and patient agrees with continuing Wellbutrin titration since he said it really seemed to help last time he was on it. Discussed lithium again and patient anxious about it saying he got palpitations last time he was tried -prozac worked for about 10 years and then stopped working which is why he was switched to Wellbutrin -after [facility], when started on Wellbutrin was also on Lamictal 100mg (has been on 200mg BID) Plan: CV Q 15 minute checks CPAP q.h.s. Restart Wellbutrin XL 150 mg daily Continue hydroxyzine 50 mg t.i.d. prn continue Zyprexa 10 mg q.h.s. continue Lamictal 25 mg daily; Restarted on Lamictal at [facility] after having been off for couple of weeks (used to be on 06/17 5 mg) Continue propranolol 20 mg b.i.d. continue amlodipine 10 mg daily Continue atorvastatin 20 mg q.h.s. Continue trazodone 100 mg q.h.s. Continue clonazepam 1 mg b.i.d. p.r.n. Consider: Consider clonidine 0.1 mg daily p.r.n. Consider Zyprexa 2.5 mg q.4 AH p.r.n. Patient used to be on: Prozac 80 mg daily for OCD Metformin 500 mg daily for metabolic syndrome since on Zyprexa Naltrexone 50 mg daily for alcohol cravings; Patient educated on: diagnosis, medication risk/benefits and therapeutic strategies Informed Consent: understands Reason for continued inpatient stay Substantial Risk for: rapid decompensation Time Spent With Patient Time: Total time managing care of this patient today ____ minutes.
[2025-05-07 20:00] VITALS: BP 114/70; PULSE 80; RESP 18; TEMP 37; O2SAT 97
[2025-05-07 20:32] VITALS: BP 114/70; PULSE 80
[2025-05-08 08:00] VITALS: BP 139/86; PULSE 93; RESP 16; TEMP 36.9; O2SAT 80
[2025-05-08 08:16] VITALS: BP 139/84
[2025-05-08] MEDS: buPROPion HCl XL 300 MG TAB.ER.24H PO (08:17)
[2025-05-08 19:40] VITALS: BP 121/67; PULSE 79; RESP 16; TEMP 36.9; O2SAT 95
--- NOTE | 2025-05-08 22:18 | HO.PSYCHPN ---
Subjective Subjective Date of Service: 05/08/25 Reason For Visit: bipolar disorder, depressed, alcohol use disorder Interim History: Met with patient; discussed with team Patient feeling a little better today; slept better. Appreciates Wellbutrin. Discussed therapeutic strategies for dealing with anxiety and self-deprecating thoughts. Discussed medications further and agrees to just remain on current regimen for now with increased Wellbutrin Mental Status Exam Mental Status Exam Narrative: Pt is alert and oriented; behavior is more calm, in better control; more social in the milieu and cooperative, friendly on approach; patient is not in distress; dressed in casual attire with unkempt hair; mood is described as okay and affect congruent; eye contact appropriate; Speech is normal rate, volume and prosody and not pressured; intermittent psychomotor agitation/retardation present; thought process is organized and goal directed; Thought content is on treatment, psychosocial stressors, what his family thinks about him; otherwise pertinent to relevant topics and without any delusional content, paranoid ideations or grandiosity; denies any SI/HI. Denies AVH and there is no evidence of perceptual disturbance. Patients insight and judgment impaired but improving Diagnostics Vital Signs (24Hr): Vital Signs - 24 hr 05/08/25 08:00 05/08/25 08:16 05/08/25 19:40 Temperature 98.4 F 98.4 F Pulse Rate 93 79 Respiratory Rate 16 16 Blood Pressure 139/86 139/84 121/67 Pulse Oximetry 80 L 95 Oxygen Delivery Method Room Air Room Air BMI result Body Mass Index 32.8 Labs 05/04/25 12:20 05/04/25 12:20 Medications Medications Current Medications Acetaminophen (Acetaminophen 325 Mg Tablet) 650 mg PO Q6H PRN PRN Reason: Headache/Pain, Scale 1-10 Last Admin: 05/08/25 20:19 Dose: 650 mg Al Hydroxide/Mg Hydroxide (Magnesium Hydrox/Alum Hydrox 30 Ml Oral.Susp) 30 ml PO Q6H PRN PRN Reason: Heartburn/Nausea Albuterol Sulfate (Albuterol Sulfate 90 Mcg 8 Gm Inhaler) 2 puff INHALE Q4H PRN PRN Reason: Shortness of Breath Amlodipine Besylate (Amlodipine Besylate 10 Mg Tablet) 10 mg PO DAILY [facility]; Protocol Last Admin: 05/08/25 08:16 Dose: 10 mg Atorvastatin Calcium (Atorvastatin Calcium 20 Mg Tablet) 20 mg PO BEDTIME [facility] Last Admin: 05/08/25 20:20 Dose: 20 mg Bupropion HCl (Bupropion Hcl Xl 300 Mg Tab.Er.24h) 300 mg PO DAILY [facility] Last Admin: 05/08/25 08:17 Dose: 300 mg Calcium Carbonate (Calcium Carbonate 750 Mg Tab.Chew) 750 mg PO Q6H PRN PRN Reason: Heartburn Clonazepam (Clonazepam 1 Mg Tablet) 1 mg PO BID [facility] Last Admin: 05/08/25 20:20 Dose: 1 mg Folic Acid (Folic Acid 1 Mg Tablet) 1 mg PO DAILY [facility] Last Admin: 05/08/25 08:17 Dose: 1 mg Hydroxyzine HCl (Hydroxyzine Hcl 50 Mg Tablet) 50 mg PO TID PRN PRN Reason: moderate anxiety/insomnia Last Admin: 05/08/25 15:37 Dose: 50 mg Lamotrigine (Lamotrigine 25 Mg Tablet) 25 mg PO DAILY [facility] Last Admin: 05/08/25 08:17 Dose: 25 mg Lidocaine (Lidocaine 4 % Patch Adh..Patch) 1 patch TRANSDERMA DAILY [facility]; Protocol Last Admin: 05/08/25 08:19 Dose: Not Given Magnesium Hydroxide (Milk Of Magnesia 30 Ml Oral.Susp) 30 ml PO DAILY PRN PRN Reason: Constipation Melatonin (Melatonin 3 Mg Tablet) 6 mg PO BEDTIME [facility] Last Admin: 05/08/25 20:20 Dose: 6 mg Multivitamins/Vitamin C (Multivitamin Tablet) 1 tab PO DAILY [facility] Last Admin: 05/08/25 08:17 Dose: 1 tab Naltrexone HCl (Naltrexone Hcl 50 Mg Tablet) 50 mg PO DAILY [facility] Last Admin: 05/08/25 08:17 Dose: 50 mg Nicotine (Nicotine 21 Mg Patch.Td24) 21 mg TRANSDERMA DAILY PRN PRN Reason: Pain, Mild (Pain Scale 1-3) Nicotine Polacrilex (Nicotine Polacrilex 2 Mg Gum) 4 mg BUCCAL Q2H PRN PRN Reason: Nicotine Cravings Olanzapine (Olanzapine 10 Mg Tablet) 10 mg PO BEDTIME [facility] Last Admin: 05/08/25 20:20 Dose: 10 mg Propranolol HCl (Propranolol Hcl 20 Mg Tablet) 20 mg PO BID [facility]; Protocol Last Admin: 05/08/25 20:20 Dose: 20 mg Thiamine HCl (Thiamine Hcl 100 Mg Tablet) 100 mg PO DAILY [facility] Last Admin: 05/08/25 08:17 Dose: 100 mg Trazodone HCl (Trazodone Hcl 50 Mg Tablet) 50 mg PO BEDTIME PRN PRN Reason: Insomnia Last Admin: 05/05/25 20:22 Dose: 50 mg Trazodone HCl (Trazodone Hcl 100 Mg Tablet) 100 mg PO BEDTIME [facility] Last Admin: 05/08/25 20:20 Dose: 100 mg Allergies Allergies Allergy/AdvReac Type Severity Reaction Status Date / Time mirtazapine (MIRTAZAPINE) Allergy Intermediate UNKNOWN Verified 05/04/25 11:34 sulfamethoxazole (From Allergy Unknown RASH Verified 05/04/25 11:34 BACTRIM) trimethoprim (From BACTRIM) Allergy Unknown RASH Verified 05/04/25 11:34 Assessment & Plan Assessment & Plan (1) MDD (major depressive disorder), recurrent episode, severe: Qualifiers: Psychotic features: without psychotic features Qualified Code(s): F33.2 - Major depressive disorder, recurrent severe without psychotic features Status: Acute Code(s): F33.2 - Major depressive disorder, recurrent severe without psychotic features (2) JESSICA (generalized anxiety disorder): Status: Acute Code(s): F41.1 - Generalized anxiety disorder (3) Panic disorder: Status: Acute Code(s): F41.0 - Panic disorder [episodic paroxysmal anxiety] (4) Alcohol abuse: Status: Acute Code(s): F10.10 - Alcohol abuse, uncomplicated (5) HTN (hypertension): Status: Acute Code(s): I10 - Essential (primary) hypertension (6) Sleep apnea: Status: Acute Code(s): G47.30 - Sleep apnea, unspecified (7) Homeless: Status: Acute Code(s): Z59.00 - Homelessness unspecified Plan HPI: Pt is a 44 yo male with hx of MDD, anxiety/panic attacks, JESSICA and alcohol abuse who presents for worsening anxiety and vague SI in face of medication changes, having just been discharged from [facility] yesterday. Patient reports that when he left in January he was doing well for a little while but then got suicidal and went to [facility] where he was started on Wellbutrin. Patient said for 2 months he was doing well on Wellbutrin, feeling more like himself and continued to go to [facility]. Patient said that despite doing well, suddenly, without any warning he became very anxious and depressed for 1 day wanted to hang himself; he told staff and was admitted to [facility] where he was taken off Wellbutrin and instead started on lithium which he said he did not want. Patient remained feeling sad throughout the admission, was discharged this past Monday, went to a friend's, drank a half pt of whiskey after 5 months of sobriety again became suicidal resulting in this admission. Patient reports he has had trouble sleeping for weeks and keeps waking up about 02:00; he just feels tired all day long and wishes he could sleep; no other manic symptoms. No drug use. Formulation/clinical reasoning: Patient seems to do overall well and then for unknown reasons will have 1 day where he gets very dysregulated and suicidal which lands him in the hospital; it seems that these bouts of dysregulated are transient if he could stay out of the hospital for that 1 day, it would resolve on its own. Although patient said he did not like lithium at [facility], he has reported that he was on lithium in the past and he thought it was helpful and was not sure why it was ever discontinued. Patient does not seem to have discrete manic episodes but will review history again. He does have a history of OCD listed (though does not seem to have this) for which he was using Prozac but by patient's own report he seemed to have been doing well on Wellbutrin (plus or minus Lamictal) and would like to restart that now. That said, lithium might be helpful as well. Patient only drank for 1 day so does not need CIWA. Intermittent SI but patient says he feels he will be safe on the unit; Currently no SI. Part of patient's extreme anxiety is that he is now homeless and feels ashamed that his family is angry at him. -reviewed hx and no hx of discreet manic episodes or behaviors. 05/07 Early this morning patient found sitting in his room with CPAP to around his neck; it was not tight and patient was not in the process of trying to hang himself. He said i was so tired...i had not slept...it was a desperate moment...i felt like shit...so many things on my mind, like a non-stop carosel of worry... Patient says he was crying loudly before hand to draw attention to himself and was this was not an attempt but a cry for help. [employer] Property agrees pt does not need 1:1 Discussed history and patient able to identify some of the things that went into his decompensation that resulted in the [facility] admission which included a staff member at the program saying something unkind to him and accusatory which made him very anxious and which he felt was unfair; he said he just thought about it over and over until he became very overwhelmed and then suddenly suicidal. Patient agrees that if he had someone to talk to that he probably could have short circuiting the spiral and rebounded on his own without inpatient admission. Discussed medications at length and patient agrees with continuing Wellbutrin titration since he said it really seemed to help last time he was on it. Discussed lithium again and patient anxious about it saying he got palpitations last time he was tried -prozac worked for about 10 years and then stopped working which is why he was switched to Wellbutrin -after [facility], when started on Wellbutrin was also on Lamictal 100mg (has been on 200mg BID) 05/08 patient tolerating increased Wellbutrin; continue with this plan. Patient would like program Plan: CV Q 15 minute checks CPAP q.h.s. Restart Wellbutrin XL 150 mg daily Continue hydroxyzine 50 mg t.i.d. prn continue Zyprexa 10 mg q.h.s. continue Lamictal 25 mg daily; Restarted on Lamictal at [facility] after having been off for couple of weeks (used to be on 06/17 5 mg) Continue propranolol 20 mg b.i.d. continue amlodipine 10 mg daily Continue atorvastatin 20 mg q.h.s. Continue trazodone 100 mg q.h.s. Continue clonazepam 1 mg b.i.d. p.r.n. Consider: Consider clonidine 0.1 mg daily p.r.n. Consider Zyprexa 2.5 mg q.4 AH p.r.n. Patient used to be on: Prozac 80 mg daily for OCD Metformin 500 mg daily for metabolic syndrome since on Zyprexa Naltrexone 50 mg daily for alcohol cravings; Patient educated on: diagnosis and medication risk/benefits Informed Consent: understands Reason for continued inpatient stay Substantial Risk for: rapid decompensation Time Spent With Patient Time: Total time managing care of this patient today ____ minutes.
[2025-05-09 08:00] VITALS: BP 111/66; PULSE 66; RESP 18; TEMP 36.6; O2SAT 97
[2025-05-09] MEDS: buPROPion HCl XL 300 MG TAB.ER.24H PO (08:43)
--- NOTE | 2025-05-09 16:27 | P.PNPSI_ITS ---
Subjective Subjective Date of Service: 05/09/25 Reason For Visit: bipolar disorder, depressed, alcohol use disorder Interim History: Met with patient; discussed with team Patient remains exceedingly anxious, sometimes hand shaking; discussed medications and patient agrees to try Trileptal after reviewing risks/side effects. Says he will start going to groups Mental Status Exam Mental Status Exam Narrative: Pt is alert and oriented; behavior is more calm, in better control but still very anxious and isolating more; patient is not in distress; dressed in casual attire with unkempt hair; mood is described as anxious and affect congruent; eye contact appropriate; Speech is normal rate, volume and prosody and not pressured; no psychomotor agitation/retardation present; thought process is organized and goal directed; Thought content is on various worries, treatment, psychosocial stressors, what his family thinks about him; otherwise pertinent to relevant topics and without any delusional content, paranoid ideations or grandiosity; denies any SI/HI. Denies AVH and there is no evidence of perceptual disturbance. Patients insight and judgment impaired but improving Diagnostics Vital Signs (24Hr): Vital Signs - 24 hr 05/08/25 19:40 05/09/25 08:00 Temperature 98.4 F 97.9 F Pulse Rate 79 66 Respiratory Rate 16 18 Blood Pressure 121/67 111/66 Pulse Oximetry 95 97 Oxygen Delivery Method Room Air Room Air BMI result Body Mass Index 32.8 Labs 05/04/25 12:20 05/04/25 12:20 Medications Medications Current Medications Acetaminophen (Acetaminophen 325 Mg Tablet) 650 mg PO Q6H PRN PRN Reason: Headache/Pain, Scale 1-10 Last Admin: 05/08/25 20:19 Dose: 650 mg Al Hydroxide/Mg Hydroxide (Magnesium Hydrox/Alum Hydrox 30 Ml Oral.Susp) 30 ml PO Q6H PRN PRN Reason: Heartburn/Nausea Albuterol Sulfate (Albuterol Sulfate 90 Mcg 8 Gm Inhaler) 2 puff INHALE Q4H PRN PRN Reason: Shortness of Breath Amlodipine Besylate (Amlodipine Besylate 10 Mg Tablet) 10 mg PO DAILY [facility]; Protocol Last Admin: 05/09/25 08:44 Dose: 10 mg Atorvastatin Calcium (Atorvastatin Calcium 20 Mg Tablet) 20 mg PO BEDTIME [facility] Last Admin: 05/08/25 20:20 Dose: 20 mg Bupropion HCl (Bupropion Hcl Xl 300 Mg Tab.Er.24h) 300 mg PO DAILY [facility] Last Admin: 05/09/25 08:43 Dose: 300 mg Calcium Carbonate (Calcium Carbonate 750 Mg Tab.Chew) 750 mg PO Q6H PRN PRN Reason: Heartburn Clonazepam (Clonazepam 1 Mg Tablet) 1 mg PO BID [facility] Last Admin: 05/09/25 08:43 Dose: 1 mg Folic Acid (Folic Acid 1 Mg Tablet) 1 mg PO DAILY [facility] Last Admin: 05/09/25 08:44 Dose: 1 mg Hydroxyzine HCl (Hydroxyzine Hcl 50 Mg Tablet) 50 mg PO TID PRN PRN Reason: moderate anxiety/insomnia Last Admin: 05/09/25 12:17 Dose: 50 mg Lamotrigine (Lamotrigine 25 Mg Tablet) 25 mg PO DAILY [facility] Last Admin: 05/09/25 08:44 Dose: 25 mg Lidocaine (Lidocaine 4 % Patch Adh..Patch) 1 patch TRANSDERMA DAILY [facility]; Protocol Last Admin: 05/09/25 08:45 Dose: Not Given Magnesium Hydroxide (Milk Of Magnesia 30 Ml Oral.Susp) 30 ml PO DAILY PRN PRN Reason: Constipation Melatonin (Melatonin 3 Mg Tablet) 6 mg PO BEDTIME [facility] Last Admin: 05/08/25 20:20 Dose: 6 mg Multivitamins/Vitamin C (Multivitamin Tablet) 1 tab PO DAILY [facility] Last Admin: 05/09/25 08:43 Dose: 1 tab Naltrexone HCl (Naltrexone Hcl 50 Mg Tablet) 50 mg PO DAILY [facility] Last Admin: 05/09/25 08:43 Dose: 50 mg Nicotine (Nicotine 21 Mg Patch.Td24) 21 mg TRANSDERMA DAILY PRN PRN Reason: Pain, Mild (Pain Scale 1-3) Nicotine Polacrilex (Nicotine Polacrilex 2 Mg Gum) 4 mg BUCCAL Q2H PRN PRN Reason: Nicotine Cravings Olanzapine (Olanzapine 10 Mg Tablet) 10 mg PO BEDTIME [facility] Last Admin: 05/08/25 20:20 Dose: 10 mg Oxcarbazepine (Oxcarbazepine 150 Mg Tablet) 150 mg PO BID [facility] Last Admin: 05/09/25 13:03 Dose: 150 mg Propranolol HCl (Propranolol Hcl 20 Mg Tablet) 20 mg PO BID [facility]; Protocol Last Admin: 05/09/25 08:44 Dose: 20 mg Thiamine HCl (Thiamine Hcl 100 Mg Tablet) 100 mg PO DAILY [facility] Last Admin: 05/09/25 08:43 Dose: 100 mg Trazodone HCl (Trazodone Hcl 50 Mg Tablet) 50 mg PO BEDTIME PRN PRN Reason: Insomnia Last Admin: 05/05/25 20:22 Dose: 50 mg Trazodone HCl (Trazodone Hcl 100 Mg Tablet) 100 mg PO BEDTIME [facility] Last Admin: 05/08/25 20:20 Dose: 100 mg Allergies Allergies Allergy/AdvReac Type Severity Reaction Status Date / Time mirtazapine (MIRTAZAPINE) Allergy Intermediate UNKNOWN Verified 05/04/25 11:34 sulfamethoxazole (From Allergy Unknown RASH Verified 05/04/25 11:34 BACTRIM) trimethoprim (From BACTRIM) Allergy Unknown RASH Verified 05/04/25 11:34 Assessment & Plan Assessment & Plan (1) MDD (major depressive disorder), recurrent episode, severe: Qualifiers: Psychotic features: without psychotic features Qualified Code(s): F33.2 - Major depressive disorder, recurrent severe without psychotic features Status: Acute Code(s): F33.2 - Major depressive disorder, recurrent severe without psychotic features (2) JESSICA (generalized anxiety disorder): Status: Acute Code(s): F41.1 - Generalized anxiety disorder (3) Panic disorder: Status: Acute Code(s): F41.0 - Panic disorder [episodic paroxysmal anxiety] (4) Alcohol abuse: Status: Acute Code(s): F10.10 - Alcohol abuse, uncomplicated (5) HTN (hypertension): Status: Acute Code(s): I10 - Essential (primary) hypertension (6) Sleep apnea: Status: Acute Code(s): G47.30 - Sleep apnea, unspecified (7) Homeless: Status: Acute Code(s): Z59.00 - Homelessness unspecified Plan HPI: Pt is a 44 yo male with hx of MDD, anxiety/panic attacks, JESSICA and alcohol abuse who presents for worsening anxiety and vague SI in face of medication changes, having just been discharged from [place] yesterday. Patient reports that when he left in January he was doing well for a little while but then got suicidal and went to [facility] where he was started on Wellbutrin. Patient said for 2 months he was doing well on Wellbutrin, feeling more like himself and continued to go [facility]. Patient said that despite doing well, suddenly, without any warning he became very anxious and depressed for 1 day wanted to hang himself; he told staff and was admitted to [place] where he was taken off Wellbutrin and instead started on lithium which he said he did not want. Patient remained feeling sad throughout the admission, was discharged this past Monday, went to a friend's, drank a half pt of whiskey after 5 months of sobriety again became suicidal resulting in this admission. Patient reports he has had trouble sleeping for weeks and keeps waking up about 02:00; he just feels tired all day long and wishes he could sleep; no other manic symptoms. No drug use. Formulation/clinical reasoning: Patient seems to do overall well and then for unknown reasons will have 1 day where he gets very dysregulated and suicidal which lands him in the hospital; it seems that these bouts of dysregulated are transient if he could stay out of the hospital for that 1 day, it would resolve on its own. Although patient said he did not like lithium at [place], he has reported that he was on lithium in the past and he thought it was helpful and was not sure why it was ever discontinued. Patient does not seem to have discrete manic episodes but will review history again. He does have a history of OCD listed (though does not seem to have this) for which he was using Prozac but by patient's own report he seemed to have been doing well on Wellbutrin (plus or minus Lamictal) and would like to restart that now. That said, lithium might be helpful as well. Patient only drank for 1 day so does not need CIWA. Intermittent SI but patient says he feels he will be safe on the unit; Currently no SI. Part of patient's extreme anxiety is that he is now homeless and feels ashamed that his family is angry at him. -reviewed hx and no hx of discreet manic episodes or behaviors. 05/07 Early this morning patient found sitting in his room with CPAP to around his neck; it was not tight and patient was not in the process of trying to hang himself. He said i was so tired...i had not slept...it was a desperate moment...i felt like shit...so many things on my mind, like a non-stop carosel of worry... Patient says he was crying loudly before hand to draw attention to himself and was this was not an attempt but a cry for help. It Project Lead agrees pt does not need 1:1 Discussed history and patient able to identify some of the things that went into his decompensation that resulted in the [place] admission which included a staff member at the program saying something unkind to him and accusatory which made him very anxious and which he felt was unfair; he said he just thought about it over and over until he became very overwhelmed and then suddenly suicidal. Patient agrees that if he had someone to talk to that he probably could have short circuiting the spiral and rebounded on his own without inpatient admission. Discussed medications at length and patient agrees with continuing Wellbutrin titration since he said it really seemed to help last time he was on it. Discussed lithium again and patient anxious about it saying he got palpitations last time he was tried -prozac worked for about 10 years and then stopped working which is why he was switched to Wellbutrin -after [facility], when started on Wellbutrin was also on Lamictal 100mg (has been on 200mg BID) 05/08 patient tolerating increased Wellbutrin; continue with this plan. Patient would like program 05/09 very anxious; agrees to starting Trileptal after reviewing risks/side effects. It is possible that patient is anxious with increased Wellbutrin over he has tolerated Wellbutrin 300 mg in the past. Will monitor and consider lowering back to 150mg. Patient agrees to start going to groups Plan: CV Q 15 minute checks CPAP q.h.s. Increase to Wellbutrin XL 300 mg daily Continue hydroxyzine 50 mg t.i.d. prn continue Zyprexa 10 mg q.h.s. continue Lamictal 25 mg daily; Restarted on Lamictal at [place] after having been off for couple of weeks (used to be on 06/17 5 mg) Continue propranolol 20 mg b.i.d. continue amlodipine 10 mg daily Continue atorvastatin 20 mg q.h.s. Continue trazodone 100 mg q.h.s. Continue clonazepam 1 mg b.i.d. p.r.n. Consider: Consider clonidine 0.1 mg daily p.r.n. Consider Zyprexa 2.5 mg q.4 AH p.r.n. Patient used to be on: Prozac 80 mg daily for OCD Metformin 500 mg daily for metabolic syndrome since on Zyprexa Naltrexone 50 mg daily for alcohol cravings; Patient educated on: diagnosis, medication risk/benefits and therapeutic strategies Informed Consent: understands Reason for continued inpatient stay Substantial Risk for: inability to function and rapid decompensation Time Spent With Patient Time: Total time managing care of this patient today ____ minutes.
[2025-05-09 20:00] VITALS: BP 122/74; PULSE 78; RESP 18; TEMP 36.9; O2SAT 95
[2025-05-09 20:40] VITALS: BP 122/74; PULSE 78
[2025-05-10 08:00] VITALS: BP 128/88; PULSE 69; RESP 16; TEMP 36.8; O2SAT 96
[2025-05-10] MEDS: buPROPion HCl XL 300 MG TAB.ER.24H PO (08:20)
--- NOTE | 2025-05-10 09:50 | HO.PSYCHPN ---
Subjective Subjective Date of Service: 05/10/25 Reason For Visit: bipolar disorder, depressed, alcohol use disorder Interim History: met with patient; discussed with team; reviewed chart Patient remains exceedingly anxious, asking development writer same question multiple times such as if he runs out of clonazepam will he have a seizure (patient is on 1 mg b.i.d.) and despite development writer's reassurance, he asks again. Patient apologizes every time but acknowledges he can not stop though intrusive worry. Discussed medication options, reviewing risks/side effects of TCAs and patient agrees to start on clomipramine given that he has numerous trials on SSRI/SNRI. Mental Status Exam Mental Status Exam Narrative: Pt is alert and oriented; behavior is anxious, needing frequent reassurance and redirection, repeating questions; patient is not in distress; dressed in casual attire with unkempt hair; mood is described as anxious and affect congruent; eye contact appropriate; Speech is normal rate, volume and prosody and not pressured; some psychomotor agitation present; thought process is organized and goal directed; Thought content is on various worries, treatment, psychosocial stressors, what his family thinks about him; otherwise pertinent to relevant topics and without any delusional content, paranoid ideations or grandiosity; denies any SI/HI. Denies AVH and there is no evidence of perceptual disturbance. Patients insight and judgment impaired Diagnostics Vital Signs (24Hr): Vital Signs - 24 hr 05/09/25 20:00 05/09/25 20:40 05/10/25 08:00 Temperature 98.4 F 98.2 F Pulse Rate 78 78 69 Respiratory Rate 18 16 Blood Pressure 122/74 122/74 128/88 Pulse Oximetry 95 96 Oxygen Delivery Method Room Air Room Air BMI result Body Mass Index 32.8 Labs 05/04/25 12:20 05/04/25 12:20 Medications Medications Current Medications Acetaminophen (Acetaminophen 325 Mg Tablet) 650 mg PO Q6H PRN PRN Reason: Headache/Pain, Scale 1-10 Last Admin: 05/09/25 17:09 Dose: 650 mg Al Hydroxide/Mg Hydroxide (Magnesium Hydrox/Alum Hydrox 30 Ml Oral.Susp) 30 ml PO Q6H PRN PRN Reason: Heartburn/Nausea Albuterol Sulfate (Albuterol Sulfate 90 Mcg 8 Gm Inhaler) 2 puff INHALE Q4H PRN PRN Reason: Shortness of Breath Amlodipine Besylate (Amlodipine Besylate 10 Mg Tablet) 10 mg PO DAILY [facility]; Protocol Last Admin: 05/10/25 08:20 Dose: 10 mg Atorvastatin Calcium (Atorvastatin Calcium 20 Mg Tablet) 20 mg PO BEDTIME [facility] Last Admin: 05/09/25 20:38 Dose: 20 mg Bupropion HCl (Bupropion Hcl Xl 300 Mg Tab.Er.24h) 300 mg PO DAILY [facility] Last Admin: 05/10/25 08:20 Dose: 300 mg Calcium Carbonate (Calcium Carbonate 750 Mg Tab.Chew) 750 mg PO Q6H PRN PRN Reason: Heartburn Clonazepam (Clonazepam 1 Mg Tablet) 1 mg PO BID [facility] Last Admin: 05/10/25 08:20 Dose: 1 mg Folic Acid (Folic Acid 1 Mg Tablet) 1 mg PO DAILY [facility] Last Admin: 05/10/25 08:20 Dose: 1 mg Hydroxyzine HCl (Hydroxyzine Hcl 50 Mg Tablet) 50 mg PO TID PRN PRN Reason: moderate anxiety/insomnia Last Admin: 05/09/25 12:17 Dose: 50 mg Lamotrigine (Lamotrigine 25 Mg Tablet) 25 mg PO DAILY [facility] Last Admin: 05/10/25 08:21 Dose: 25 mg Lidocaine (Lidocaine 4 % Patch Adh..Patch) 1 patch TRANSDERMA DAILY [facility]; Protocol Last Admin: 05/09/25 08:45 Dose: Not Given Magnesium Hydroxide (Milk Of Magnesia 30 Ml Oral.Susp) 30 ml PO DAILY PRN PRN Reason: Constipation Melatonin (Melatonin 3 Mg Tablet) 6 mg PO BEDTIME [facility] Last Admin: 05/09/25 20:39 Dose: 6 mg Multivitamins/Vitamin C (Multivitamin Tablet) 1 tab PO DAILY [facility] Last Admin: 05/10/25 08:20 Dose: 1 tab Naltrexone HCl (Naltrexone Hcl 50 Mg Tablet) 50 mg PO DAILY [facility] Last Admin: 05/10/25 08:20 Dose: 50 mg Nicotine (Nicotine 21 Mg Patch.Td24) 21 mg TRANSDERMA DAILY PRN PRN Reason: Pain, Mild (Pain Scale 1-3) Nicotine Polacrilex (Nicotine Polacrilex 2 Mg Gum) 4 mg BUCCAL Q2H PRN PRN Reason: Nicotine Cravings Olanzapine (Olanzapine 10 Mg Tablet) 10 mg PO BEDTIME [facility] Last Admin: 05/09/25 20:40 Dose: 10 mg Oxcarbazepine (Oxcarbazepine 150 Mg Tablet) 150 mg PO BID [facility] Last Admin: 05/10/25 08:20 Dose: 150 mg Propranolol HCl (Propranolol Hcl 20 Mg Tablet) 20 mg PO BID [facility]; Protocol Last Admin: 05/10/25 08:20 Dose: 20 mg Thiamine HCl (Thiamine Hcl 100 Mg Tablet) 100 mg PO DAILY [facility] Last Admin: 05/10/25 08:20 Dose: 100 mg Trazodone HCl (Trazodone Hcl 50 Mg Tablet) 50 mg PO BEDTIME PRN PRN Reason: Insomnia Last Admin: 05/05/25 20:22 Dose: 50 mg Trazodone HCl (Trazodone Hcl 100 Mg Tablet) 100 mg PO BEDTIME [facility] Last Admin: 05/09/25 20:40 Dose: 100 mg Allergies Allergies Allergy/AdvReac Type Severity Reaction Status Date / Time mirtazapine (MIRTAZAPINE) Allergy Intermediate UNKNOWN Verified 05/04/25 11:34 sulfamethoxazole (From Allergy Unknown RASH Verified 05/04/25 11:34 BACTRIM) trimethoprim (From BACTRIM) Allergy Unknown RASH Verified 05/04/25 11:34 Assessment & Plan Assessment & Plan (1) MDD (major depressive disorder), recurrent episode, severe: Qualifiers: Psychotic features: without psychotic features Qualified Code(s): F33.2 - Major depressive disorder, recurrent severe without psychotic features Status: Acute Code(s): F33.2 - Major depressive disorder, recurrent severe without psychotic features (2) JESSICA (generalized anxiety disorder): Status: Acute Code(s): F41.1 - Generalized anxiety disorder (3) Panic disorder: Status: Acute Code(s): F41.0 - Panic disorder [episodic paroxysmal anxiety] (4) Alcohol abuse: Status: Acute Code(s): F10.10 - Alcohol abuse, uncomplicated (5) HTN (hypertension): Status: Acute Code(s): I10 - Essential (primary) hypertension (6) Sleep apnea: Status: Acute Code(s): G47.30 - Sleep apnea, unspecified (7) Homeless: Status: Acute Code(s): Z59.00 - Homelessness unspecified Plan HPI: Pt is a 44 yo male with hx of MDD, anxiety/panic attacks, JESSICA and alcohol abuse who presents for worsening anxiety and vague SI in face of medication changes, having just been discharged from [place] yesterday. Patient reports that when he left in January he was doing well for a little while but then got suicidal and went to [facility] where he was started on Wellbutrin. Patient said for 2 months he was doing well on Wellbutrin, feeling more like himself and continued to go to [facility]. Patient said that despite doing well, suddenly, without any warning he became very anxious and depressed for 1 day wanted to hang himself; he told staff and was admitted to [place] where he was taken off Wellbutrin and instead started on lithium which he said he did not want. Patient remained feeling sad throughout the admission, was discharged this past Monday, went to a friend's, drank a half pt of whiskey after 5 months of sobriety again became suicidal resulting in this admission. Patient reports he has had trouble sleeping for weeks and keeps waking up about 02:00; he just feels tired all day long and wishes he could sleep; no other manic symptoms. No drug use. Formulation/clinical reasoning: Patient seems to do overall well and then for unknown reasons will have 1 day where he gets very dysregulated and suicidal which lands him in the hospital; it seems that these bouts of dysregulated are transient if he could stay out of the hospital for that 1 day, it would resolve on its own. Although patient said he did not like lithium at [place], he has reported that he was on lithium in the past and he thought it was helpful and was not sure why it was ever discontinued. Patient does not seem to have discrete manic episodes but will review history again. He does have a history of OCD listed (though does not seem to have this) for which he was using Prozac but by patient's own report he seemed to have been doing well on Wellbutrin (plus or minus Lamictal) and would like to restart that now. That said, lithium might be helpful as well. Patient only drank for 1 day so does not need CIWA. Intermittent SI but patient says he feels he will be safe on the unit; Currently no SI. Part of patient's extreme anxiety is that he is now homeless and feels ashamed that his family is angry at him. -reviewed hx and no hx of discreet manic episodes or behaviors. 05/07 Early this morning patient found sitting in his room with CPAP to around his neck; it was not tight and patient was not in the process of trying to hang himself. He said i was so tired...i had not slept...it was a desperate moment...i felt like shit...so many things on my mind, like a non-stop carosel of worry... Patient says he was crying loudly before hand to draw attention to himself and was this was not an attempt but a cry for help. Real Estate Agency Licensee agrees pt does not need 1:1 Discussed history and patient able to identify some of the things that went into his decompensation that resulted in the [facility] admission which included a staff member at the program saying something unkind to him and accusatory which made him very anxious and which he felt was unfair; he said he just thought about it over and over until he became very overwhelmed and then suddenly suicidal. Patient agrees that if he had someone to talk to that he probably could have short circuiting the spiral and rebounded on his own without inpatient admission. Discussed medications at length and patient agrees with continuing Wellbutrin titration since he said it really seemed to help last time he was on it. Discussed lithium again and patient anxious about it saying he got palpitations last time he was tried -prozac worked for about 10 years and then stopped working which is why he was switched to Wellbutrin -after [facility], when started on Wellbutrin was also on Lamictal 100mg (has been on 200mg BID) 05/08 patient tolerating increased Wellbutrin; continue with this plan. Patient would like program 05/09 very anxious; agrees to starting Trileptal after reviewing risks/side effects. It is possible that patient is anxious with increased Wellbutrin over he has tolerated Wellbutrin 300 mg in the past. Will monitor and consider lowering back to 150mg. Patient agrees to start going to groups 05/10 Patient remains exceedingly anxious, asking development writer same question multiple times such as if he runs out of clonazepam will he have a seizure (patient is on 1 mg b.i.d.) and despite development writer's reassurance, he asks again. Patient apologizes every time but acknowledges he can not stop though intrusive worry. Discussed medication options, reviewing risks/side effects of TCAs and patient agrees to start on clomipramine given that he has numerous trials on SSRI/SNRI.(will monitor for dry mouth, constipation, urinary retention, orthostatic hypotension, tachycardia etc.) -will lower Wellbutrin to 150 mg; possibly titrated to quickly exacerbating some anxiety Plan: CV Q 15 minute checks CPAP q.h.s. START clomipramine 25 mg q.h.s. Lower back to Wellbutrin XL 150 mg daily Continue hydroxyzine 50 mg t.i.d. prn continue Zyprexa 10 mg q.h.s. continue Lamictal 25 mg daily; Restarted on Lamictal at [place] after having been off for couple of weeks (used to be on 06/17 5 mg) Continue propranolol 20 mg b.i.d. continue amlodipine 10 mg daily Continue atorvastatin 20 mg q.h.s. Continue trazodone 100 mg q.h.s. Continue clonazepam 1 mg b.i.d. p.r.n. Consider: Consider clonidine 0.1 mg daily p.r.n. Consider Zyprexa 2.5 mg q.4 AH p.r.n. Patient used to be on: Prozac 80 mg daily for OCD Metformin 500 mg daily for metabolic syndrome since on Zyprexa Naltrexone 50 mg daily for alcohol cravings; Patient educated on: diagnosis, medication risk/benefits and therapeutic strategies Informed Consent: understands and further education needed Reason for continued inpatient stay Substantial Risk for: rapid decompensation Time Spent With Patient Time: Total time managing care of this patient today ____ minutes.
[2025-05-10 19:57] VITALS: BP 112/62; PULSE 63; RESP 16; TEMP 36.8; O2SAT 97
[2025-05-10 20:22] VITALS: BP 126/84; PULSE 73
[2025-05-11 08:00] VITALS: BP 125/81; PULSE 76; RESP 16; TEMP 36.4; O2SAT 95
[2025-05-11] MEDS: buPROPion HCl XL 150 MG TAB.ER.24H PO (08:20)
--- NOTE | 2025-05-11 16:26 | P.PNPSI_ITS ---
Subjective Subjective Date of Service: 05/11/25 Reason For Visit: bipolar disorder, depressed, alcohol use disorder Interim History: Met with patient; discussed with team Patient reports feeling a little better today. And wonders if perhaps it is because Wellbutrin was lowered. So far tolerating clomipramine. Patient continuing to ask repeated questions about worries despite having been given answers and educated on various topics. Talked about therapeutic approach and coping skills and patient will start to categorize his worries into realistic worries verse excessive worries and if he wants to talk about an excessive worry, he will bringing up as such and asked how to cope with it. Mental Status Exam Mental Status Exam Narrative: Pt is alert and oriented; behavior is more calm, in better control; still very anxious but a little more able to cope; patient is not in distress; dressed in casual attire with adequate hygiene and grooming; mood is described as anxious... A little better and affect congruent; eye contact appropriate; Speech is normal rate, volume and prosody and not pressured; no psychomotor agitation/retardation present; thought process is organized and goal directed; Thought content is on various worries, treatment, psychosocial stressors, what his family thinks about him; otherwise pertinent to relevant topics and without any delusional content, paranoid ideations or grandiosity; denies any SI/HI. Denies AVH and there is no evidence of perceptual disturbance. Patients insight and judgment impaired but improving Diagnostics Vital Signs (24Hr): Vital Signs - 24 hr 05/10/25 19:57 05/10/25 20:22 05/11/25 08:00 Temperature 98.2 F 97.6 F Pulse Rate 63 73 76 Respiratory Rate 16 16 Blood Pressure 112/62 126/84 125/81 Pulse Oximetry 97 95 Oxygen Delivery Method Room Air Room Air BMI result Body Mass Index 32.8 Labs 05/04/25 12:20 05/04/25 12:20 Medications Medications Current Medications Acetaminophen (Acetaminophen 325 Mg Tablet) 650 mg PO Q6H PRN PRN Reason: Headache/Pain, Scale 1-10 Last Admin: 05/10/25 12:59 Dose: 650 mg Al Hydroxide/Mg Hydroxide (Magnesium Hydrox/Alum Hydrox 30 Ml Oral.Susp) 30 ml PO Q6H PRN PRN Reason: Heartburn/Nausea Albuterol Sulfate (Albuterol Sulfate 90 Mcg 8 Gm Inhaler) 2 puff INHALE Q4H PRN PRN Reason: Shortness of Breath Amlodipine Besylate (Amlodipine Besylate 10 Mg Tablet) 10 mg PO DAILY [facility]; Protocol Last Admin: 05/11/25 08:20 Dose: 10 mg Atorvastatin Calcium (Atorvastatin Calcium 20 Mg Tablet) 20 mg PO BEDTIME [facility] Last Admin: 05/10/25 20:23 Dose: 20 mg Bupropion HCl (Bupropion Hcl Xl 150 Mg Tab.Er.24h) 150 mg PO DAILY [facility] Last Admin: 05/11/25 08:20 Dose: 150 mg Calcium Carbonate (Calcium Carbonate 750 Mg Tab.Chew) 750 mg PO Q6H PRN PRN Reason: Heartburn Clomipramine HCl (Clomipramine Hcl 25 Mg Capsule) 25 mg PO BEDTIME [facility] Last Admin: 05/10/25 20:23 Dose: 25 mg Clonazepam (Clonazepam 1 Mg Tablet) 1 mg PO BID [facility] Last Admin: 05/11/25 08:21 Dose: 1 mg Folic Acid (Folic Acid 1 Mg Tablet) 1 mg PO DAILY [facility] Last Admin: 05/11/25 08:20 Dose: 1 mg Hydroxyzine HCl (Hydroxyzine Hcl 50 Mg Tablet) 50 mg PO TID PRN PRN Reason: moderate anxiety/insomnia Last Admin: 05/11/25 11:06 Dose: 50 mg Lamotrigine (Lamotrigine 25 Mg Tablet) 25 mg PO DAILY [facility] Last Admin: 05/11/25 08:20 Dose: 25 mg Magnesium Hydroxide (Milk Of Magnesia 30 Ml Oral.Susp) 30 ml PO DAILY PRN PRN Reason: Constipation Melatonin (Melatonin 3 Mg Tablet) 6 mg PO BEDTIME [facility] Last Admin: 05/10/25 20:22 Dose: 6 mg Multivitamins/Vitamin C (Multivitamin Tablet) 1 tab PO DAILY [facility] Last Admin: 05/11/25 08:20 Dose: 1 tab Naltrexone HCl (Naltrexone Hcl 50 Mg Tablet) 50 mg PO DAILY [facility] Last Admin: 05/11/25 08:20 Dose: 50 mg Nicotine (Nicotine 21 Mg Patch.Td24) 21 mg TRANSDERMA DAILY PRN PRN Reason: Pain, Mild (Pain Scale 1-3) Nicotine Polacrilex (Nicotine Polacrilex 2 Mg Gum) 4 mg BUCCAL Q2H PRN PRN Reason: Nicotine Cravings Olanzapine (Olanzapine 10 Mg Tablet) 10 mg PO BEDTIME [facility] Last Admin: 05/10/25 20:24 Dose: 10 mg Propranolol HCl (Propranolol Hcl 20 Mg Tablet) 20 mg PO BID [facility]; Protocol Last Admin: 05/11/25 08:20 Dose: 20 mg Thiamine HCl (Thiamine Hcl 100 Mg Tablet) 100 mg PO DAILY [facility] Last Admin: 05/11/25 08:20 Dose: 100 mg Trazodone HCl (Trazodone Hcl 50 Mg Tablet) 50 mg PO BEDTIME PRN PRN Reason: Insomnia Last Admin: 05/05/25 20:22 Dose: 50 mg Trazodone HCl (Trazodone Hcl 100 Mg Tablet) 100 mg PO BEDTIME [facility] Last Admin: 05/10/25 20:23 Dose: 100 mg Allergies Allergies Allergy/AdvReac Type Severity Reaction Status Date / Time mirtazapine (MIRTAZAPINE) Allergy Intermediate UNKNOWN Verified 05/04/25 11:34 sulfamethoxazole (From Allergy Unknown RASH Verified 05/04/25 11:34 BACTRIM) trimethoprim (From BACTRIM) Allergy Unknown RASH Verified 05/04/25 11:34 Assessment & Plan Assessment & Plan (1) MDD (major depressive disorder), recurrent episode, severe: Qualifiers: Psychotic features: without psychotic features Qualified Code(s): F33.2 - Major depressive disorder, recurrent severe without psychotic features Status: Acute Code(s): F33.2 - Major depressive disorder, recurrent severe without psychotic features (2) JESSICA (generalized anxiety disorder): Status: Acute Code(s): F41.1 - Generalized anxiety disorder (3) Panic disorder: Status: Acute Code(s): F41.0 - Panic disorder [episodic paroxysmal anxiety] (4) Alcohol abuse: Status: Acute Code(s): F10.10 - Alcohol abuse, uncomplicated (5) HTN (hypertension): Status: Acute Code(s): I10 - Essential (primary) hypertension (6) Sleep apnea: Status: Acute Code(s): G47.30 - Sleep apnea, unspecified (7) Homeless: Status: Acute Code(s): Z59.00 - Homelessness unspecified Plan HPI: Pt is a 44 yo male with hx of MDD, anxiety/panic attacks, JESSICA and alcohol abuse who presents for worsening anxiety and vague SI in face of medication changes, having just been discharged from [facility] yesterday. Patient reports that when he left in January he was doing well for a little while but then got suicidal and went to [facility] where he was started on Wellbutrin. Patient said for 2 months he was doing well on Wellbutrin, feeling more like himself and continued to go to [facility]. Patient said that despite doing well, suddenly, without any warning he became very anxious and depressed for 1 day wanted to hang himself; he told staff and was admitted to [facility] where he was taken off Wellbutrin and instead started on lithium which he said he did not want. Patient remained feeling sad throughout the admission, was discharged this past Monday, went to a friend's, drank a half pt of whiskey after 5 months of sobriety again became suicidal resulting in this admission. Patient reports he has had trouble sleeping for weeks and keeps waking up about 02:00; he just feels tired all day long and wishes he could sleep; no other manic symptoms. No drug use. Formulation/clinical reasoning: Patient seems to do overall well and then for unknown reasons will have 1 day where he gets very dysregulated and suicidal which lands him in the hospital; it seems that these bouts of dysregulated are transient if he could stay out of the hospital for that 1 day, it would resolve on its own. Although patient said he did not like lithium at [facility], he has reported that he was on lithium in the past and he thought it was helpful and was not sure why it was ever discontinued. Patient does not seem to have discrete manic episodes but will review history again. He does have a history of OCD listed (though does not seem to have this) for which he was using Prozac but by patient's own report he seemed to have been doing well on Wellbutrin (plus or minus Lamictal) and would like to restart that now. That said, lithium might be helpful as well. Patient only drank for 1 day so does not need CIWA. Intermittent SI but patient says he feels he will be safe on the unit; Currently no SI. Part of patient's extreme anxiety is that he is now homeless and feels ashamed that his family is angry at him. -reviewed hx and no hx of discreet manic episodes or behaviors. 05/07 Early this morning patient found sitting in his room with CPAP to around his neck; it was not tight and patient was not in the process of trying to hang himself. He said i was so tired...i had not slept...it was a desperate moment...i felt like shit...so many things on my mind, like a non-stop carosel of worry... Patient says he was crying loudly before hand to draw attention to himself and was this was not an attempt but a cry for help. Director Of Outreach agrees pt does not need 1:1 Discussed history and patient able to identify some of the things that went into his decompensation that resulted in the [facility] admission which included a staff member at the program saying something unkind to him and accusatory which made him very anxious and which he felt was unfair; he said he just thought about it over and over until he became very overwhelmed and then suddenly suicidal. Patient agrees that if he had someone to talk to that he probably could have short circuiting the spiral and rebounded on his own without inpatient admission. Discussed medications at length and patient agrees with continuing Wellbutrin titration since he said it really seemed to help last time he was on it. Discussed lithium again and patient anxious about it saying he got palpitations last time he was tried -prozac worked for about 10 years and then stopped working which is why he was switched to Wellbutrin -after [facility], when started on Wellbutrin was also on Lamictal 100mg (has been on 200mg BID) 05/08 patient tolerating increased Wellbutrin; continue with this plan. Patient would like program 05/09 very anxious; agrees to starting Trileptal after reviewing risks/side effects. It is possible that patient is anxious with increased Wellbutrin over he has tolerated Wellbutrin 300 mg in the past. Will monitor and consider lowering back to 150mg. Patient agrees to start going to groups 05/10 Patient remains exceedingly anxious, asking hand sign writer same question multiple times such as if he runs out of clonazepam will he have a seizure (patient is on 1 mg b.i.d.) and despite hand sign writer's reassurance, he asks again. Patient apologizes every time but acknowledges he can not stop though intrusive worry. Discussed medication options, reviewing risks/side effects of TCAs and patient agrees to start on clomipramine given that he has numerous trials on SSRI/SNRI.(will monitor for dry mouth, constipation, urinary retention, orthostatic hypotension, tachycardia etc.) -will lower Wellbutrin to 150 mg; possibly titrated to quickly exacerbating some anxiety 05/11 Patient reports feeling a little better today. And wonders if perhaps it is because Wellbutrin was lowered. So far tolerating clomipramine. Patient continuing to ask repeated questions about worries despite having been given answers and educated on various topics. Talked about therapeutic approach and coping skills and patient will start to categorize his worries into realistic worries verse excessive worries and if he wants to talk about an excessive worry, he will bringing up as such and asked how to cope with it. Discussed substance abuse and patient has stayed mostly sober for year, only a few relapses limited to only 1 or 2 days at most -DC need Trileptal since working with clomipramine instead; will continue Lamictal for now; he has been on this medication for years and it is possible it is helpful and possible it is not effective Patient is in good behavioral and impulse control and engaged in treatment; he is appropriate with both peers and staff. Patient is safe Plan: CV Q 15 minute checks CPAP q.h.s. START clomipramine 25 mg q.h.s. Lower back to Wellbutrin XL 150 mg daily Continue hydroxyzine 50 mg t.i.d. prn continue Zyprexa 10 mg q.h.s. continue Lamictal 25 mg daily; Restarted on Lamictal at [facility] after having been off for couple of weeks (used to be on 06/17 5 mg) Continue propranolol 20 mg b.i.d. continue amlodipine 10 mg daily Continue atorvastatin 20 mg q.h.s. Continue trazodone 100 mg q.h.s. Continue clonazepam 1 mg b.i.d. (patient has been on this dose for about 15 years) Consider: Consider clonidine 0.1 mg daily p.r.n. Consider Zyprexa 2.5 mg q.4 AH p.r.n. Patient used to be on: Prozac 80 mg daily for OCD Metformin 500 mg daily for metabolic syndrome since on Zyprexa Naltrexone 50 mg daily for alcohol cravings; Patient educated on: diagnosis, medication risk/benefits, substance abuse and therapeutic strategies Informed Consent: understands Reason for continued inpatient stay Substantial Risk for: rapid decompensation and med/psych decompensation Time Spent With Patient Time: Total time managing care of this patient today ____ minutes.
[2025-05-11 20:00] VITALS: BP 118/67; PULSE 72; RESP 20; TEMP 36.4; O2SAT 96
[2025-05-11 21:15] VITALS: BP 128/70; PULSE 88
[2025-05-12 00:50] VITALS: RESP 20
[2025-05-12 08:00] VITALS: BP 128/81; PULSE 69; RESP 18; TEMP 36.6; O2SAT 97
[2025-05-12 09:38] VITALS: BP 128/80
[2025-05-12] MEDS: buPROPion HCl XL 150 MG TAB.ER.24H PO (09:38)
[2025-05-12 09:39] VITALS: BP 128/60; PULSE 69
[2025-05-12 12:46] LABS: Resp Syncy Virus RNA Qual PCR NEGATIVE (Negative); SARS COV2 PCR INHOUSE NEGATIVE (Negative)
--- NOTE | 2025-05-12 17:14 | P.PNPSI_ITS ---
Subjective Subjective Date of Service: 05/12/25 Reason For Visit: bipolar disorder, depressed, alcohol use disorder Interim History: met with patient; discussed with team pt reports doing a little better today; still very anxious but using coping skills to challenge excessive worries. Discussed medications and pt agrees to continue with clomipramine and wellbutrin, titrating as needed. Discussed aftercare and pt wants a program Mental Status Exam Mental Status Exam Narrative: Pt is alert and oriented; behavior is calm, in good control; utilizing coping skills; patient is not in distress; dressed in casual attire with adequate hygiene and grooming; mood is described as better and affect congruent, brighter, more calm; eye contact appropriate; Speech is normal rate, volume and prosody and not pressured; no psychomotor agitation/retardation present; thought process is organized and goal directed; Thought content is on various worries, treatment, psychosocial stressors; otherwise pertinent to relevant topics and without any delusional content, paranoid ideations or grandiosity; denies any SI/HI. Denies AVH and there is no evidence of perceptual disturbance. Patients insight and judgment fair. Diagnostics Vital Signs (24Hr): Vital Signs - 24 hr 05/11/25 20:00 05/11/25 21:15 05/12/25 00:50 Temperature 97.5 F Pulse Rate 72 88 Respiratory Rate 20 20 Blood Pressure 118/67 128/70 Pulse Oximetry 96 Oxygen Delivery Method Room Air 05/12/25 08:00 05/12/25 09:38 05/12/25 09:39 Temperature 97.9 F Pulse Rate 69 69 Respiratory Rate 18 Blood Pressure 128/81 128/80 128/60 Pulse Oximetry 97 Oxygen Delivery Method Room Air BMI result Body Mass Index 32.8 Labs 05/04/25 12:20 05/04/25 12:20 Labs: Laboratory Results - last 48 hr 05/12/25 12:00 Influenza Type A (PCR) NEGATIVE Influenza Type B (PCR) NEGATIVE RSV RNA Qual (PCR) NEGATIVE SARS-CoV-2 RNA (RT-PCR) NEGATIVE Medications Medications Current Medications Acetaminophen (Acetaminophen 325 Mg Tablet) 650 mg PO Q6H PRN PRN Reason: Headache/Pain, Scale 1-10 Last Admin: 05/10/25 12:59 Dose: 650 mg Al Hydroxide/Mg Hydroxide (Magnesium Hydrox/Alum Hydrox 30 Ml Oral.Susp) 30 ml PO Q6H PRN PRN Reason: Heartburn/Nausea Albuterol Sulfate (Albuterol Sulfate 90 Mcg 8 Gm Inhaler) 2 puff INHALE Q4H PRN PRN Reason: Shortness of Breath Amlodipine Besylate (Amlodipine Besylate 10 Mg Tablet) 10 mg PO DAILY [facility]; Protocol Last Admin: 05/12/25 09:38 Dose: 10 mg Atorvastatin Calcium (Atorvastatin Calcium 20 Mg Tablet) 20 mg PO BEDTIME [facility] Last Admin: 05/11/25 21:16 Dose: 20 mg Bupropion HCl (Bupropion Hcl Xl 150 Mg Tab.Er.24h) 150 mg PO DAILY [facility] Last Admin: 05/12/25 09:38 Dose: 150 mg Calcium Carbonate (Calcium Carbonate 750 Mg Tab.Chew) 750 mg PO Q6H PRN PRN Reason: Heartburn Clomipramine HCl (Clomipramine Hcl 25 Mg Capsule) 25 mg PO BEDTIME [facility] Last Admin: 05/11/25 21:16 Dose: 25 mg Clonazepam (Clonazepam 1 Mg Tablet) 1 mg PO BID [facility] Last Admin: 05/12/25 09:38 Dose: 1 mg Folic Acid (Folic Acid 1 Mg Tablet) 1 mg PO DAILY [facility] Last Admin: 05/12/25 09:38 Dose: 1 mg Hydroxyzine HCl (Hydroxyzine Hcl 50 Mg Tablet) 50 mg PO TID PRN PRN Reason: moderate anxiety/insomnia Last Admin: 05/12/25 13:15 Dose: 50 mg Lamotrigine (Lamotrigine 25 Mg Tablet) 25 mg PO DAILY [facility] Last Admin: 05/12/25 10:29 Dose: 25 mg Magnesium Hydroxide (Milk Of Magnesia 30 Ml Oral.Susp) 30 ml PO DAILY PRN PRN Reason: Constipation Melatonin (Melatonin 3 Mg Tablet) 6 mg PO BEDTIME [facility] Last Admin: 05/11/25 21:16 Dose: 6 mg Multivitamins/Vitamin C (Multivitamin Tablet) 1 tab PO DAILY [facility] Last Admin: 05/12/25 09:38 Dose: 1 tab Naltrexone HCl (Naltrexone Hcl 50 Mg Tablet) 50 mg PO DAILY [facility] Last Admin: 05/12/25 09:38 Dose: 50 mg Nicotine (Nicotine 21 Mg Patch.Td24) 21 mg TRANSDERMA DAILY PRN PRN Reason: Pain, Mild (Pain Scale 1-3) Nicotine Polacrilex (Nicotine Polacrilex 2 Mg Gum) 4 mg BUCCAL Q2H PRN PRN Reason: Nicotine Cravings Olanzapine (Olanzapine 10 Mg Tablet) 10 mg PO BEDTIME [facility] Last Admin: 05/11/25 21:16 Dose: 10 mg Propranolol HCl (Propranolol Hcl 20 Mg Tablet) 20 mg PO BID [facility]; Protocol Last Admin: 05/12/25 09:39 Dose: 20 mg Thiamine HCl (Thiamine Hcl 100 Mg Tablet) 100 mg PO DAILY [facility] Last Admin: 05/12/25 09:38 Dose: 100 mg Trazodone HCl (Trazodone Hcl 50 Mg Tablet) 50 mg PO BEDTIME PRN PRN Reason: Insomnia Last Admin: 05/05/25 20:22 Dose: 50 mg Trazodone HCl (Trazodone Hcl 100 Mg Tablet) 100 mg PO BEDTIME [facility] Last Admin: 05/11/25 21:17 Dose: 100 mg Allergies Allergies Allergy/AdvReac Type Severity Reaction Status Date / Time mirtazapine (MIRTAZAPINE) Allergy Intermediate UNKNOWN Verified 05/04/25 11:34 sulfamethoxazole (From Allergy Unknown RASH Verified 05/04/25 11:34 BACTRIM) trimethoprim (From BACTRIM) Allergy Unknown RASH Verified 05/04/25 11:34 Assessment & Plan Assessment & Plan (1) MDD (major depressive disorder), recurrent episode, severe: Qualifiers: Psychotic features: without psychotic features Qualified Code(s): F33.2 - Major depressive disorder, recurrent severe without psychotic features Status: Acute Code(s): F33.2 - Major depressive disorder, recurrent severe without psychotic features (2) JESSICA (generalized anxiety disorder): Status: Acute Code(s): F41.1 - Generalized anxiety disorder (3) Panic disorder: Status: Acute Code(s): F41.0 - Panic disorder [episodic paroxysmal anxiety] (4) Alcohol abuse: Status: Acute Code(s): F10.10 - Alcohol abuse, uncomplicated (5) HTN (hypertension): Status: Acute Code(s): I10 - Essential (primary) hypertension (6) Sleep apnea: Status: Acute Code(s): G47.30 - Sleep apnea, unspecified (7) Homeless: Status: Acute Code(s): Z59.00 - Homelessness unspecified Plan HPI: Pt is a 44 yo male with hx of MDD, anxiety/panic attacks, JESSICA and alcohol abuse who presents for worsening anxiety and vague SI in face of medication changes, having just been discharged from [facility] yesterday. Patient reports that when he left in January he was doing well for a little while but then got suicidal and went to [facility] where he was started on Wellbutrin. Patient said for 2 months he was doing well on Wellbutrin, feeling more like himself and continued to go to the [facility]. Patient said that despite doing well, suddenly, without any warning he became very anxious and depressed for 1 day wanted to hang himself; he told staff and was admitted to [facility] where he was taken off Wellbutrin and instead started on lithium which he said he did not want. Patient remained feeling sad throughout the admission, was discharged this past Monday, went to a friend's, drank a half pt of whiskey after 5 months of sobriety again became suicidal resulting in this admission. Patient reports he has had trouble sleeping for weeks and keeps waking up about 02:00; he just feels tired all day long and wishes he could sleep; no other manic symptoms. No drug use. Formulation/clinical reasoning: Patient seems to do overall well and then for unknown reasons will have 1 day where he gets very dysregulated and suicidal which lands him in the hospital; it seems that these bouts of dysregulated are transient if he could stay out of the hospital for that 1 day, it would resolve on its own. Although patient said he did not like lithium at [facility], he has reported that he was on lithium in the past and he thought it was helpful and was not sure why it was ever discontinued. Patient does not seem to have discrete manic episodes but will review history again. He does have a history of OCD listed (though does not seem to have this) for which he was using Prozac but by patient's own report he seemed to have been doing well on Wellbutrin (plus or minus Lamictal) and would like to restart that now. That said, lithium might be helpful as well. Patient only drank for 1 day so does not need CIWA. Intermittent SI but patient says he feels he will be safe on the unit; Currently no SI. Part of patient's extreme anxiety is that he is now homeless and feels ashamed that his family is angry at him. -reviewed hx and no hx of discreet manic episodes or behaviors. 05/07 Early this morning patient found sitting in his room with CPAP to around his neck; it was not tight and patient was not in the process of trying to hang himself. He said i was so tired...i had not slept...it was a desperate moment...i felt like shit...so many things on my mind, like a non-stop carosel of worry... Patient says he was crying loudly before hand to draw attention to himself and was this was not an attempt but a cry for help. Overhead Irrigator agrees pt does not need 1:1 Discussed history and patient able to identify some of the things that went into his decompensation that resulted in the [facility] admission which included a staff member at the program saying something unkind to him and accusatory which made him very anxious and which he felt was unfair; he said he just thought about it over and over until he became very overwhelmed and then suddenly suicidal. Patient agrees that if he had someone to talk to that he probably could have short circuiting the spiral and rebounded on his own without inpatient admission. Discussed medications at length and patient agrees with continuing Wellbutrin titration since he said it really seemed to help last time he was on it. Discussed lithium again and patient anxious about it saying he got palpitations last time he was tried -prozac worked for about 10 years and then stopped working which is why he was switched to Wellbutrin -after [facility], when started on Wellbutrin was also on Lamictal 100mg (has been on 200mg BID) 05/08 patient tolerating increased Wellbutrin; continue with this plan. Patient would like program 05/09 very anxious; agrees to starting Trileptal after reviewing risks/side effects. It is possible that patient is anxious with increased Wellbutrin over he has tolerated Wellbutrin 300 mg in the past. Will monitor and consider lowering back to 150mg. Patient agrees to start going to groups 05/10 Patient remains exceedingly anxious, asking report writer same question multiple times such as if he runs out of clonazepam will he have a seizure (patient is on 1 mg b.i.d.) and despite report writer's reassurance, he asks again. Patient apologizes every time but acknowledges he can not stop though intrusive worry. Discussed medication options, reviewing risks/side effects of TCAs and patient agrees to start on clomipramine given that he has numerous trials on SSRI/SNRI.(will monitor for dry mouth, constipation, urinary retention, orthostatic hypotension, tachycardia etc.) -will lower Wellbutrin to 150 mg; possibly titrated to quickly exacerbating some anxiety 05/11 Patient reports feeling a little better today. And wonders if perhaps it is because Wellbutrin was lowered. So far tolerating clomipramine. Patient continuing to ask repeated questions about worries despite having been given answers and educated on various topics. Talked about therapeutic approach and coping skills and patient will start to categorize his worries into realistic worries verse excessive worries and if he wants to talk about an excessive worry, he will bringing up as such and asked how to cope with it. Discussed substance abuse and patient has stayed mostly sober for year, only a few relapses limited to only 1 or 2 days at most -DC need Trileptal since working with clomipramine instead; will continue Lamictal for now; he has been on this medication for years and it is possible it is helpful and possible it is not effective 05/12 pt reports doing a little better today; still very anxious but using coping skills to challenge excessive worries. Discussed medications and pt agrees to continue with clomipramine and wellbutrin, titrating as needed. Discussed aftercare and pt wants a program Patient is in good behavioral and impulse control and engaged in treatment; he is appropriate with both peers and staff. Patient is safe Plan: CV Q 15 minute checks CPAP q.h.s. START clomipramine 25 mg q.h.s. Lower back to Wellbutrin XL 150 mg daily Continue hydroxyzine 50 mg t.i.d. prn continue Zyprexa 10 mg q.h.s. continue Lamictal 25 mg daily; Restarted on Lamictal at [facility] after having been off for couple of weeks (used to be on 06/17 5 mg) Continue propranolol 20 mg b.i.d. continue amlodipine 10 mg daily Continue atorvastatin 20 mg q.h.s. Continue trazodone 100 mg q.h.s. Continue clonazepam 1 mg b.i.d. (patient has been on this dose for about 15 years) Consider: Consider clonidine 0.1 mg daily p.r.n. Consider Zyprexa 2.5 mg q.4 AH p.r.n. Patient used to be on: Prozac 80 mg daily for OCD Metformin 500 mg daily for metabolic syndrome since on Zyprexa Naltrexone 50 mg daily for alcohol cravings; Patient educated on: diagnosis, medication risk/benefits, substance abuse and therapeutic strategies Informed Consent: understands Reason for continued inpatient stay Substantial Risk for: rapid decompensation Time Spent With Patient Time: Total time managing care of this patient today ____ minutes.
[2025-05-12] MEDS: Milk of Magnesia 30 ML ORAL.SUSP PO (17:36)
[2025-05-12 20:00] VITALS: BP 131/57; PULSE 69; RESP 18; TEMP 36.6; O2SAT 96
[2025-05-12 20:06] VITALS: BP 131/57; PULSE 69
[2025-05-13 08:00] VITALS: BP 133/86; PULSE 68; RESP 18; TEMP 36.9; O2SAT 94
[2025-05-13] MEDS: buPROPion HCl XL 150 MG TAB.ER.24H PO (08:26)
--- NOTE | 2025-05-13 17:16 | HO.PSYCHPN ---
Subjective Subjective Date of Service: 05/13/25 Reason For Visit: bipolar disorder, depressed, alcohol use disorder Interim History: Met with patient; discussed with team Patient continues to do better. Patient reports that both depression and anxiety are improved. He still has anxiety but is getting better and better at noticing it and employing coping skills. Patient feels he is benefitting from groups and also feels that the medications are helpful. Discussed medication regimen and patient agrees with increasing clomipramine. Discussed whether or not to remain on Lamictal and will continue to monitor improvement on current medication regimen Mental Status Exam Mental Status Exam Narrative: Pt is alert and oriented; behavior is calm, in good control; utilizing coping skills; patient is not in distress; dressed in casual attire with adequate hygiene and grooming; mood is described as better and affect congruent, brighter, more calm; eye contact appropriate; Speech is normal rate, volume and prosody and not pressured; no psychomotor agitation/retardation present; thought process is organized and goal directed; Thought content is on various worries, treatment, psychosocial stressors; otherwise pertinent to relevant topics and without any delusional content, paranoid ideations or grandiosity; denies any SI/HI. Denies AVH and there is no evidence of perceptual disturbance. Patients insight and judgment fair. Diagnostics Vital Signs (24Hr): Vital Signs - 24 hr 05/12/25 20:00 05/12/25 20:06 05/13/25 08:00 Temperature 97.8 F 98.4 F Pulse Rate 69 69 68 Respiratory Rate 18 18 Blood Pressure 131/57 L 131/57 L 133/86 Pulse Oximetry 96 94 Oxygen Delivery Method Room Air Room Air BMI result Body Mass Index 32.8 Labs 05/04/25 12:20 05/04/25 12:20 Labs: Laboratory Results - last 48 hr 05/12/25 12:00 Influenza Type A (PCR) NEGATIVE Influenza Type B (PCR) NEGATIVE RSV RNA Qual (PCR) NEGATIVE SARS-CoV-2 RNA (RT-PCR) NEGATIVE Medications Medications Current Medications Acetaminophen (Acetaminophen 325 Mg Tablet) 650 mg PO Q6H PRN PRN Reason: Headache/Pain, Scale 1-10 Last Admin: 05/13/25 10:43 Dose: 650 mg Al Hydroxide/Mg Hydroxide (Magnesium Hydrox/Alum Hydrox 30 Ml Oral.Susp) 30 ml PO Q6H PRN PRN Reason: Heartburn/Nausea Albuterol Sulfate (Albuterol Sulfate 90 Mcg 8 Gm Inhaler) 2 puff INHALE Q4H PRN PRN Reason: Shortness of Breath Amlodipine Besylate (Amlodipine Besylate 10 Mg Tablet) 10 mg PO DAILY [facility]; Protocol Last Admin: 05/13/25 08:26 Dose: 10 mg Atorvastatin Calcium (Atorvastatin Calcium 20 Mg Tablet) 20 mg PO BEDTIME [facility] Last Admin: 05/12/25 20:07 Dose: 20 mg Bupropion HCl (Bupropion Hcl Xl 150 Mg Tab.Er.24h) 150 mg PO DAILY [facility] Last Admin: 05/13/25 08:26 Dose: 150 mg Calcium Carbonate (Calcium Carbonate 750 Mg Tab.Chew) 750 mg PO Q6H PRN PRN Reason: Heartburn Clomipramine HCl (Clomipramine Hcl 25 Mg Capsule) 50 mg PO BEDTIME [facility] Clonazepam (Clonazepam 1 Mg Tablet) 1 mg PO BID [facility] Last Admin: 05/13/25 08:26 Dose: 1 mg Docusate Sodium (Docusate Sodium 100 Mg Capsule) 100 mg PO BID [facility] Last Admin: 05/13/25 08:26 Dose: 100 mg Hydroxyzine HCl (Hydroxyzine Hcl 50 Mg Tablet) 50 mg PO TID PRN PRN Reason: moderate anxiety/insomnia Last Admin: 05/13/25 13:27 Dose: 50 mg Lamotrigine (Lamotrigine 25 Mg Tablet) 25 mg PO DAILY [facility] Last Admin: 05/13/25 08:26 Dose: 25 mg Magnesium Hydroxide (Milk Of Magnesia 30 Ml Oral.Susp) 30 ml PO DAILY PRN PRN Reason: Constipation Last Admin: 05/12/25 17:36 Dose: 30 ml Melatonin (Melatonin 3 Mg Tablet) 6 mg PO BEDTIME [facility] Last Admin: 05/12/25 20:06 Dose: 6 mg Multivitamins/Vitamin C (Multivitamin Tablet) 1 tab PO DAILY [facility] Last Admin: 05/13/25 08:26 Dose: 1 tab Naltrexone HCl (Naltrexone Hcl 50 Mg Tablet) 50 mg PO DAILY [facility] Last Admin: 05/13/25 08:26 Dose: 50 mg Nicotine (Nicotine 21 Mg Patch.Td24) 21 mg TRANSDERMA DAILY PRN PRN Reason: Pain, Mild (Pain Scale 1-3) Nicotine Polacrilex (Nicotine Polacrilex 2 Mg Gum) 4 mg BUCCAL Q2H PRN PRN Reason: Nicotine Cravings Olanzapine (Olanzapine 10 Mg Tablet) 10 mg PO BEDTIME [facility] Last Admin: 05/12/25 20:07 Dose: 10 mg Polyethylene Glycol (Polyethylene Glycol 3350 17 Gm Powd.Pack) 17 gm PO DAILY PRN PRN Reason: Constipation Last Admin: 05/13/25 10:43 Dose: 17 gm Propranolol HCl (Propranolol Hcl 20 Mg Tablet) 20 mg PO BID [facility]; Protocol Last Admin: 05/13/25 08:27 Dose: 20 mg Trazodone HCl (Trazodone Hcl 50 Mg Tablet) 50 mg PO BEDTIME PRN PRN Reason: Insomnia Last Admin: 05/05/25 20:22 Dose: 50 mg Trazodone HCl (Trazodone Hcl 100 Mg Tablet) 100 mg PO BEDTIME [facility] Last Admin: 05/12/25 20:07 Dose: 100 mg Allergies Allergies Allergy/AdvReac Type Severity Reaction Status Date / Time mirtazapine (MIRTAZAPINE) Allergy Intermediate UNKNOWN Verified 05/04/25 11:34 sulfamethoxazole (From Allergy Unknown RASH Verified 05/04/25 11:34 BACTRIM) trimethoprim (From BACTRIM) Allergy Unknown RASH Verified 05/04/25 11:34 Assessment & Plan Assessment & Plan (1) MDD (major depressive disorder), recurrent episode, severe: Qualifiers: Psychotic features: without psychotic features Qualified Code(s): F33.2 - Major depressive disorder, recurrent severe without psychotic features Status: Acute Code(s): F33.2 - Major depressive disorder, recurrent severe without psychotic features (2) JESSICA (generalized anxiety disorder): Status: Acute Code(s): F41.1 - Generalized anxiety disorder (3) Panic disorder: Status: Acute Code(s): F41.0 - Panic disorder [episodic paroxysmal anxiety] (4) Alcohol abuse: Status: Acute Code(s): F10.10 - Alcohol abuse, uncomplicated (5) HTN (hypertension): Status: Acute Code(s): I10 - Essential (primary) hypertension (6) Sleep apnea: Status: Acute Code(s): G47.30 - Sleep apnea, unspecified (7) Homeless: Status: Acute Code(s): Z59.00 - Homelessness unspecified Plan HPI: Pt is a 44 yo male with hx of MDD, anxiety/panic attacks, JESSICA and alcohol abuse who presents for worsening anxiety and vague SI in face of medication changes, having just been discharged from [facility] yesterday. Patient reports that when he left in January he was doing well for a little while but then got suicidal and went to [facility] where he was started on Wellbutrin. Patient said for 2 months he was doing well on Wellbutrin, feeling more like himself and continued to go to the [facility]. Patient said that despite doing well, suddenly, without any warning he became very anxious and depressed for 1 day wanted to hang himself; he told staff and was admitted to [facility] where he was taken off Wellbutrin and instead started on lithium which he said he did not want. Patient remained feeling sad throughout the admission, was discharged this past Monday, went to a friend's, drank a half pt of whiskey after 5 months of sobriety again became suicidal resulting in this admission. Patient reports he has had trouble sleeping for weeks and keeps waking up about 02:00; he just feels tired all day long and wishes he could sleep; no other manic symptoms. No drug use. Formulation/clinical reasoning: Patient seems to do overall well and then for unknown reasons will have 1 day where he gets very dysregulated and suicidal which lands him in the hospital; it seems that these bouts of dysregulated are transient if he could stay out of the hospital for that 1 day, it would resolve on its own. Although patient said he did not like lithium at [facility], he has reported that he was on lithium in the past and he thought it was helpful and was not sure why it was ever discontinued. Patient does not seem to have discrete manic episodes but will review history again. He does have a history of OCD listed (though does not seem to have this) for which he was using Prozac but by patient's own report he seemed to have been doing well on Wellbutrin (plus or minus Lamictal) and would like to restart that now. That said, lithium might be helpful as well. Patient only drank for 1 day so does not need CIWA. Intermittent SI but patient says he feels he will be safe on the unit; Currently no SI. Part of patient's extreme anxiety is that he is now homeless and feels ashamed that his family is angry at him. -reviewed hx and no hx of discreet manic episodes or behaviors. 05/07 Early this morning patient found sitting in his room with CPAP to around his neck; it was not tight and patient was not in the process of trying to hang himself. He said i was so tired...i had not slept...it was a desperate moment...i felt like shit...so many things on my mind, like a non-stop carosel of worry... Patient says he was crying loudly before hand to draw attention to himself and was this was not an attempt but a cry for help. Director Medical Safety agrees pt does not need 1:1 Discussed history and patient able to identify some of the things that went into his decompensation that resulted in the [facility] admission which included a staff member at the program saying something unkind to him and accusatory which made him very anxious and which he felt was unfair; he said he just thought about it over and over until he became very overwhelmed and then suddenly suicidal. Patient agrees that if he had someone to talk to that he probably could have short circuiting the spiral and rebounded on his own without inpatient admission. Discussed medications at length and patient agrees with continuing Wellbutrin titration since he said it really seemed to help last time he was on it. Discussed lithium again and patient anxious about it saying he got palpitations last time he was tried -prozac worked for about 10 years and then stopped working which is why he was switched to Wellbutrin -after [facility], when started on Wellbutrin was also on Lamictal 100mg (has been on 200mg BID) 05/08 patient tolerating increased Wellbutrin; continue with this plan. Patient would like program 05/09 very anxious; agrees to starting Trileptal after reviewing risks/side effects. It is possible that patient is anxious with increased Wellbutrin over he has tolerated Wellbutrin 300 mg in the past. Will monitor and consider lowering back to 150mg. Patient agrees to start going to groups 05/10 Patient remains exceedingly anxious, asking leader writer same question multiple times such as if he runs out of clonazepam will he have a seizure (patient is on 1 mg b.i.d.) and despite leader writer's reassurance, he asks again. Patient apologizes every time but acknowledges he can not stop though intrusive worry. Discussed medication options, reviewing risks/side effects of TCAs and patient agrees to start on clomipramine given that he has numerous trials on SSRI/SNRI.(will monitor for dry mouth, constipation, urinary retention, orthostatic hypotension, tachycardia etc.) -will lower Wellbutrin to 150 mg; possibly titrated to quickly exacerbating some anxiety 05/11 Patient reports feeling a little better today. And wonders if perhaps it is because Wellbutrin was lowered. So far tolerating clomipramine. Patient continuing to ask repeated questions about worries despite having been given answers and educated on various topics. Talked about therapeutic approach and coping skills and patient will start to categorize his worries into realistic worries verse excessive worries and if he wants to talk about an excessive worry, he will bringing up as such and asked how to cope with it. Discussed substance abuse and patient has stayed mostly sober for year, only a few relapses limited to only 1 or 2 days at most -DC need Trileptal since working with clomipramine instead; will continue Lamictal for now; he has been on this medication for years and it is possible it is helpful and possible it is not effective 05/12 pt reports doing a little better today; still very anxious but using coping skills to challenge excessive worries. Discussed medications and pt agrees to continue with clomipramine and wellbutrin, titrating as needed. Discussed aftercare and pt wants a program 05/13 Patient continues to do better. Patient reports that both depression and anxiety are improved. He still has anxiety but is getting better and better at noticing it and employing coping skills. Patient feels he is benefitting from groups and also feels that the medications are helpful. Discussed medication regimen and patient agrees with increasing clomipramine. Patient is in good behavioral and impulse control and engaged in treatment; he is appropriate with both peers and staff. Patient is safe. Plan: CV Q 15 minute checks CPAP q.h.s. Increase to clomipramine 50 mg q.h.s. Lower back to Wellbutrin XL 150 mg daily Continue hydroxyzine 50 mg t.i.d. prn continue Zyprexa 10 mg q.h.s. continue Lamictal 25 mg daily; Restarted on Lamictal at [facility] after having been off for couple of weeks (used to be on 06/17 5 mg) Continue propranolol 20 mg b.i.d. continue amlodipine 10 mg daily Continue atorvastatin 20 mg q.h.s. Continue trazodone 100 mg q.h.s. Continue clonazepam 1 mg b.i.d. (patient has been on this dose for about 15 years) Consider: Consider clonidine 0.1 mg daily p.r.n. Consider Zyprexa 2.5 mg q.4 AH p.r.n. Patient used to be on: Prozac 80 mg daily for OCD Metformin 500 mg daily for metabolic syndrome since on Zyprexa Naltrexone 50 mg daily for alcohol cravings; Patient educated on: diagnosis, medication risk/benefits and therapeutic strategies Informed Consent: understands Reason for continued inpatient stay Substantial Risk for: rapid decompensation Time Spent With Patient Time: Total time managing care of this patient today ____ minutes.
[2025-05-13 20:00] VITALS: BP 122/73; PULSE 77; TEMP 36.4; O2SAT 98
[2025-05-14 07:53] VITALS: BP 134/73; PULSE 76; RESP 18; TEMP 36.5; O2SAT 97
[2025-05-14] MEDS: buPROPion HCl XL 150 MG TAB.ER.24H PO (08:51)
--- NOTE | 2025-05-14 10:54 | HO.PSYCHPN ---
Subjective Subjective Date of Service: 05/14/25 Reason For Visit: bipolar disorder, depressed, alcohol use disorder Interim History: Met with patient; discussed with team Patient remains doing better, anxiety and depression getting under much better control. Continues to employed coping skills Mental Status Exam Mental Status Exam Narrative: Pt is alert and oriented; behavior is calm, in good control; utilizing coping skills; patient is not in distress; dressed in casual attire with adequate hygiene and grooming; mood is described as better and affect congruent, brighter, more calm; eye contact appropriate; Speech is normal rate, volume and prosody and not pressured; no psychomotor agitation/retardation present; thought process is organized and goal directed; Thought content is on various worries, treatment, psychosocial stressors; otherwise pertinent to relevant topics and without any delusional content, paranoid ideations or grandiosity; denies any SI/HI. Denies AVH and there is no evidence of perceptual disturbance. Patients insight and judgment fair. Diagnostics Vital Signs (24Hr): Vital Signs - 24 hr 05/13/25 20:00 05/14/25 07:53 Temperature 97.5 F 97.7 F Pulse Rate 77 76 Respiratory Rate 18 Blood Pressure 122/73 134/73 Pulse Oximetry 98 97 Oxygen Delivery Method Room Air Room Air BMI result Body Mass Index 32.8 Labs 05/04/25 12:20 05/04/25 12:20 Labs: Laboratory Results - last 48 hr 05/12/25 12:00 Influenza Type A (PCR) NEGATIVE Influenza Type B (PCR) NEGATIVE RSV RNA Qual (PCR) NEGATIVE SARS-CoV-2 RNA (RT-PCR) NEGATIVE Medications Medications Current Medications Acetaminophen (Acetaminophen 325 Mg Tablet) 650 mg PO Q6H PRN PRN Reason: Headache/Pain, Scale 1-10 Last Admin: 05/13/25 10:43 Dose: 650 mg Al Hydroxide/Mg Hydroxide (Magnesium Hydrox/Alum Hydrox 30 Ml Oral.Susp) 30 ml PO Q6H PRN PRN Reason: Heartburn/Nausea Albuterol Sulfate (Albuterol Sulfate 90 Mcg 8 Gm Inhaler) 2 puff INHALE Q4H PRN PRN Reason: Shortness of Breath Amlodipine Besylate (Amlodipine Besylate 10 Mg Tablet) 10 mg PO DAILY MARTINEZ; Protocol Last Admin: 05/14/25 08:50 Dose: 10 mg Atorvastatin Calcium (Atorvastatin Calcium 20 Mg Tablet) 20 mg PO BEDTIME MARTINEZ Last Admin: 05/13/25 20:28 Dose: 20 mg Bupropion HCl (Bupropion Hcl Xl 150 Mg Tab.Er.24h) 150 mg PO DAILY [facility] Last Admin: 05/14/25 08:51 Dose: 150 mg Calcium Carbonate (Calcium Carbonate 750 Mg Tab.Chew) 750 mg PO Q6H PRN PRN Reason: Heartburn Clomipramine HCl (Clomipramine Hcl 25 Mg Capsule) 50 mg PO BEDTIME [facility] Last Admin: 05/13/25 20:24 Dose: 50 mg Clonazepam (Clonazepam 1 Mg Tablet) 1 mg PO BID [facility] Last Admin: 05/14/25 08:50 Dose: 1 mg Docusate Sodium (Docusate Sodium 100 Mg Capsule) 100 mg PO BID [facility] Last Admin: 05/14/25 08:50 Dose: 100 mg Hydroxyzine HCl (Hydroxyzine Hcl 50 Mg Tablet) 50 mg PO TID PRN PRN Reason: moderate anxiety/insomnia Last Admin: 05/13/25 13:27 Dose: 50 mg Lamotrigine (Lamotrigine 25 Mg Tablet) 25 mg PO DAILY [facility] Last Admin: 05/14/25 08:50 Dose: 25 mg Magnesium Hydroxide (Milk Of Magnesia 30 Ml Oral.Susp) 30 ml PO DAILY PRN PRN Reason: Constipation Last Admin: 05/12/25 17:36 Dose: 30 ml Melatonin (Melatonin 3 Mg Tablet) 6 mg PO BEDTIME [facility] Last Admin: 05/13/25 20:25 Dose: 6 mg Multivitamins/Vitamin C (Multivitamin Tablet) 1 tab PO DAILY [facility] Last Admin: 05/14/25 08:50 Dose: 1 tab Naltrexone HCl (Naltrexone Hcl 50 Mg Tablet) 50 mg PO DAILY [facility] Last Admin: 05/14/25 08:50 Dose: 50 mg Nicotine (Nicotine 21 Mg Patch.Td24) 21 mg TRANSDERMA DAILY PRN PRN Reason: Pain, Mild (Pain Scale 1-3) Nicotine Polacrilex (Nicotine Polacrilex 2 Mg Gum) 4 mg BUCCAL Q2H PRN PRN Reason: Nicotine Cravings Olanzapine (Olanzapine 10 Mg Tablet) 10 mg PO BEDTIME [facility] Last Admin: 05/13/25 20:27 Dose: 10 mg Polyethylene Glycol (Polyethylene Glycol 3350 17 Gm Powd.Pack) 17 gm PO DAILY PRN PRN Reason: Constipation Last Admin: 05/13/25 10:43 Dose: 17 gm Propranolol HCl (Propranolol Hcl 20 Mg Tablet) 20 mg PO BID [facility]ARTINEZ; Protocol Last Admin: 05/14/25 08:51 Dose: 20 mg Trazodone HCl (Trazodone Hcl 50 Mg Tablet) 50 mg PO BEDTIME PRN PRN Reason: Insomnia Last Admin: 05/05/25 20:22 Dose: 50 mg Trazodone HCl (Trazodone Hcl 100 Mg Tablet) 100 mg PO BEDTIME [facility] Last Admin: 05/13/25 20:26 Dose: 100 mg Allergies Allergies Allergy/AdvReac Type Severity Reaction Status Date / Time mirtazapine (MIRTAZAPINE) Allergy Intermediate UNKNOWN Verified 05/04/25 11:34 sulfamethoxazole (From Allergy Unknown RASH Verified 05/04/25 11:34 BACTRIM) trimethoprim (From BACTRIM) Allergy Unknown RASH Verified 05/04/25 11:34 Assessment & Plan Assessment & Plan (1) MDD (major depressive disorder), recurrent episode, severe: Qualifiers: Psychotic features: without psychotic features Qualified Code(s): F33.2 - Major depressive disorder, recurrent severe without psychotic features Status: Acute Code(s): F33.2 - Major depressive disorder, recurrent severe without psychotic features (2) JESSICA (generalized anxiety disorder): Status: Acute Code(s): F41.1 - Generalized anxiety disorder (3) Panic disorder: Status: Acute Code(s): F41.0 - Panic disorder [episodic paroxysmal anxiety] (4) Alcohol abuse: Status: Acute Code(s): F10.10 - Alcohol abuse, uncomplicated (5) HTN (hypertension): Status: Acute Code(s): I10 - Essential (primary) hypertension (6) Sleep apnea: Status: Acute Code(s): G47.30 - Sleep apnea, unspecified (7) Homeless: Status: Acute Code(s): Z59.00 - Homelessness unspecified Plan HPI: Pt is a 44 yo male with hx of MDD, anxiety/panic attacks, JESSICA and alcohol abuse who presents for worsening anxiety and vague SI in face of medication changes, having just been discharged from [facility] yesterday. Patient reports that when he left in January he was doing well for a little while but then got suicidal and went to [facility] where he was started on Wellbutrin. Patient said for 2 months he was doing well on Wellbutrin, feeling more like himself and continued to go to [facility]. Patient said that despite doing well, suddenly, without any warning he became very anxious and depressed for 1 day wanted to hang himself; he told staff and was admitted to [facility] where he was taken off Wellbutrin and instead started on lithium which he said he did not want. Patient remained feeling sad throughout the admission, was discharged this past Monday, went to a friend's, drank a half pt of whiskey after 5 months of sobriety again became suicidal resulting in this admission. Patient reports he has had trouble sleeping for weeks and keeps waking up about 02:00; he just feels tired all day long and wishes he could sleep; no other manic symptoms. No drug use. Formulation/clinical reasoning: Patient seems to do overall well and then for unknown reasons will have 1 day where he gets very dysregulated and suicidal which lands him in the hospital; it seems that these bouts of dysregulated are transient if he could stay out of the hospital for that 1 day, it would resolve on its own. Although patient said he did not like lithium at [facility], he has reported that he was on lithium in the past and he thought it was helpful and was not sure why it was ever discontinued. Patient does not seem to have discrete manic episodes but will review history again. He does have a history of OCD listed (though does not seem to have this) for which he was using Prozac but by patient's own report he seemed to have been doing well on Wellbutrin (plus or minus Lamictal) and would like to restart that now. That said, lithium might be helpful as well. Patient only drank for 1 day so does not need CIWA. Intermittent SI but patient says he feels he will be safe on the unit; Currently no SI. Part of patient's extreme anxiety is that he is now homeless and feels ashamed that his family is angry at him. -reviewed hx and no hx of discreet manic episodes or behaviors. 05/07 Early this morning patient found sitting in his room with CPAP to around his neck; it was not tight and patient was not in the process of trying to hang himself. He said i was so tired...i had not slept...it was a desperate moment...i felt like shit...so many things on my mind, like a non-stop carosel of worry... Patient says he was crying loudly before hand to draw attention to himself and was this was not an attempt but a cry for help. Geometry Tutor agrees pt does not need 1:1 Discussed history and patient able to identify some of the things that went into his decompensation that resulted in the [facility] admission which included a staff member at the program saying something unkind to him and accusatory which made him very anxious and which he felt was unfair; he said he just thought about it over and over until he became very overwhelmed and then suddenly suicidal. Patient agrees that if he had someone to talk to that he probably could have short circuiting the spiral and rebounded on his own without inpatient admission. Discussed medications at length and patient agrees with continuing Wellbutrin titration since he said it really seemed to help last time he was on it. Discussed lithium again and patient anxious about it saying he got palpitations last time he was tried -prozac worked for about 10 years and then stopped working which is why he was switched to Wellbutrin -after [facility], when started on Wellbutrin was also on Lamictal 100mg (has been on 200mg BID) 05/08 patient tolerating increased Wellbutrin; continue with this plan. Patient would like program 05/09 very anxious; agrees to starting Trileptal after reviewing risks/side effects. It is possible that patient is anxious with increased Wellbutrin over he has tolerated Wellbutrin 300 mg in the past. Will monitor and consider lowering back to 150mg. Patient agrees to start going to groups 05/10 Patient remains exceedingly anxious, asking teletypewriter operator same question multiple times such as if he runs out of clonazepam will he have a seizure (patient is on 1 mg b.i.d.) and despite teletypewriter operator's reassurance, he asks again. Patient apologizes every time but acknowledges he can not stop though intrusive worry. Discussed medication options, reviewing risks/side effects of TCAs and patient agrees to start on clomipramine given that he has numerous trials on SSRI/SNRI.(will monitor for dry mouth, constipation, urinary retention, orthostatic hypotension, tachycardia etc.) -will lower Wellbutrin to 150 mg; possibly titrated to quickly exacerbating some anxiety 05/11 Patient reports feeling a little better today. And wonders if perhaps it is because Wellbutrin was lowered. So far tolerating clomipramine. Patient continuing to ask repeated questions about worries despite having been given answers and educated on various topics. Talked about therapeutic approach and coping skills and patient will start to categorize his worries into realistic worries verse excessive worries and if he wants to talk about an excessive worry, he will bringing up as such and asked how to cope with it. Discussed substance abuse and patient has stayed mostly sober for year, only a few relapses limited to only 1 or 2 days at most -DC need Trileptal since working with clomipramine instead; will continue Lamictal for now; he has been on this medication for years and it is possible it is helpful and possible it is not effective 05/12 pt reports doing a little better today; still very anxious but using coping skills to challenge excessive worries. Discussed medications and pt agrees to continue with clomipramine and wellbutrin, titrating as needed. Discussed aftercare and pt wants a program 05/13 Patient continues to do better. Patient reports that both depression and anxiety are improved. He still has anxiety but is getting better and better at noticing it and employing coping skills. Patient feels he is benefitting from groups and also feels that the medications are helpful. Discussed medication regimen and patient agrees with increasing clomipramine. 05/14 patient continues to improve; continue current treatment plan; some respiratory symptoms however negative for RSV/COVID/flu Patient is in good behavioral and impulse control and engaged in treatment; he is appropriate with both peers and staff. Patient is safe. Plan: CV Q 15 minute checks CPAP q.h.s. Increase to clomipramine 50 mg q.h.s. Lower back to Wellbutrin XL 150 mg daily Continue hydroxyzine 50 mg t.i.d. prn continue Zyprexa 10 mg q.h.s. continue Lamictal 25 mg daily; Restarted on Lamictal at [facility] after having been off for couple of weeks (used to be on 06/17 5 mg) Continue propranolol 20 mg b.i.d. continue amlodipine 10 mg daily Continue atorvastatin 20 mg q.h.s. Continue trazodone 100 mg q.h.s. Continue clonazepam 1 mg b.i.d. (patient has been on this dose for about 15 years) Consider: Consider clonidine 0.1 mg daily p.r.n. Consider Zyprexa 2.5 mg q.4 AH p.r.n. Patient used to be on: Prozac 80 mg daily for OCD Metformin 500 mg daily for metabolic syndrome since on Zyprexa Naltrexone 50 mg daily for alcohol cravings; Patient educated on: diagnosis and medication risk/benefits Informed Consent: understands Reason for continued inpatient stay Substantial Risk for: rapid decompensation Time Spent With Patient Time: Total time managing care of this patient today ____ minutes.
[2025-05-14 14:17] LABS: Chlamydia pneumoniae PCR Not Detected (Not Detect.); Coronavirus 229E PCR Not Detected (Not Detect.); Coronavirus HKU1 PCR Not Detected (Not Detect.); Coronavirus NL63 PCR Not Detected (Not Detect.); Coronavirus OC43 PCR Not Detected (Not Detect.); RSV PCR Not Detected (Not Detect.); Rhino/Enterovirus PCR Not Detected (Not Detect.)
[2025-05-14 14:26] LABS: Influenza A H1 PCR Not Detected (Not Detect.); Influenza A H1-2009 PCR Not Detected (Not Detect.); Influenza A H3 PCR Not Detected (Not Detect.); SARS-CoV-2 PCR Not Detected (Not Detect.)
[2025-05-14 20:00] VITALS: BP 123/74; PULSE 78; RESP 18; TEMP 36.9; O2SAT 96
[2025-05-15 08:00] VITALS: BP 125/76; PULSE 68; RESP 16; TEMP 36.5; O2SAT 97
[2025-05-15 08:46] VITALS: BP 125/76; PULSE 68
[2025-05-15] MEDS: buPROPion HCl XL 150 MG TAB.ER.24H PO (08:46)
[2025-05-15 08:47] VITALS: BP 125/76
--- NOTE | 2025-05-15 13:55 | P.PNPSI_ITS ---
Subjective Subjective Date of Service: 05/15/25 Reason For Visit: bipolar disorder, depressed, alcohol use disorder Subjective Notes: Conditional Voluntary Interim History: Patient found lying in his bed. He feels Okay. He has been eating and sleeping well. He endorses Mild anxiety and depression. He denies SI/HI/AVH. According to nursing patient has been isolative in his room. Medication Compliance: Yes Side effects from medications: No Attending Groups: Intermittent Review of Systems Acute medical concerns: No Mental Status Exam Mental Status Exam Narrative: Appearance: Casually dressed, adequate hygiene and grooming Behavior: Calm and cooperative throughout the interview. Eye contact is appropriate, and there are no signs of psychomotor agitation or retardation Speech: Normal volume and prosody Thought process: Logical and goal-directed Thought content: On treatment Mood: Okay Affect: Mood-congruent SI: Denies HI: Denies VH/AH: None Delusions: None reported or noted Insight/judgment: Fair insight and judgment Memory/cog: Alert, oriented x 4. grossly intact to conversational testing Diagnostics Vital Signs (24Hr): Vital Signs - 24 hr 05/14/25 20:00 05/15/25 08:00 05/15/25 08:46 Temperature 98.4 F 97.7 F Pulse Rate 78 68 68 Respiratory Rate 18 16 Blood Pressure 123/74 125/76 125/76 Pulse Oximetry 96 97 Oxygen Delivery Method Room Air Room Air 05/15/25 08:47 Temperature Pulse Rate Respiratory Rate Blood Pressure 125/76 Pulse Oximetry Oxygen Delivery Method BMI result Body Mass Index 32.8 Labs 05/04/25 12:20 05/04/25 12:20 Labs: Laboratory Results - last 48 hr 05/14/25 12:40 Respiratory Panel Rodriguez See Note Adenovirus (Rapid PCR) Not Detected B.pert (TEM-PCR) Not Detected B.parapertussis DNA PCR Not Detected C. pneumoniae DNA (PCR) Not Detected Coronavirus OC43 (PCR) Not Detected Coronavirus HKU1 (PCR) Not Detected Coronavirus 229E (PCR) Not Detected Coronavirus NL63 (PCR) Not Detected Human Metapneumovir PCR Not Detected Influenza A (RT-PCR) Not Detected Influenza A (H1) PCR Not Detected Influ A (H1/09) PCR Not Detected Influenza A (H3) PCR Not Detected Influenza B (RT-PCR) Not Detected M. pneumoniae (PCR) Not Detected Parainfluenza 1 (PCR) Not Detected Parainfluenza 2 (PCR) Not Detected Parainfluenza 3 (PCR) Not Detected Parainfluenza 4 (PCR) Not Detected RSV (PCR) Not Detected Entero/Rhino (PCR) Not Detected SARS-CoV-2 RNA (RT-PCR) Not Detected Medications Medications Current Medications Acetaminophen (Acetaminophen 325 Mg Tablet) 650 mg PO Q6H PRN PRN Reason: Headache/Pain, Scale 1-10 Last Admin: 05/14/25 20:55 Dose: 650 mg Al Hydroxide/Mg Hydroxide (Magnesium Hydrox/Alum Hydrox 30 Ml Oral.Susp) 30 ml PO Q6H PRN PRN Reason: Heartburn/Nausea Albuterol Sulfate (Albuterol Sulfate 90 Mcg 8 Gm Inhaler) 2 puff INHALE Q4H PRN PRN Reason: Shortness of Breath Amlodipine Besylate (Amlodipine Besylate 10 Mg Tablet) 10 mg PO DAILY [facility]; Protocol Last Admin: 05/15/25 08:47 Dose: 10 mg Atorvastatin Calcium (Atorvastatin Calcium 20 Mg Tablet) 20 mg PO BEDTIME [facility] Last Admin: 05/14/25 20:56 Dose: 20 mg Bupropion HCl (Bupropion Hcl Xl 150 Mg Tab.Er.24h) 150 mg PO DAILY [facility] Last Admin: 05/15/25 08:46 Dose: 150 mg Calcium Carbonate (Calcium Carbonate 750 Mg Tab.Chew) 750 mg PO Q6H PRN PRN Reason: Heartburn Clomipramine HCl (Clomipramine Hcl 25 Mg Capsule) 50 mg PO BEDTIME [facility] Last Admin: 05/14/25 20:56 Dose: 50 mg Clonazepam (Clonazepam 1 Mg Tablet) 1 mg PO BID [facility] Last Admin: 05/15/25 08:46 Dose: 1 mg Docusate Sodium (Docusate Sodium 100 Mg Capsule) 100 mg PO BID [facility] Last Admin: 05/15/25 08:46 Dose: 100 mg Hydroxyzine HCl (Hydroxyzine Hcl 50 Mg Tablet) 50 mg PO TID PRN PRN Reason: moderate anxiety/insomnia Last Admin: 05/15/25 12:33 Dose: 50 mg Lamotrigine (Lamotrigine 25 Mg Tablet) 25 mg PO DAILY [facility] Last Admin: 05/15/25 08:47 Dose: 25 mg Magnesium Hydroxide (Milk Of Magnesia 30 Ml Oral.Susp) 30 ml PO DAILY PRN PRN Reason: Constipation Last Admin: 05/12/25 17:36 Dose: 30 ml Melatonin (Melatonin 3 Mg Tablet) 6 mg PO BEDTIME [facility] Last Admin: 05/14/25 20:55 Dose: 6 mg Multivitamins/Vitamin C (Multivitamin Tablet) 1 tab PO DAILY [facility] Last Admin: 05/15/25 08:46 Dose: 1 tab Naltrexone HCl (Naltrexone Hcl 50 Mg Tablet) 50 mg PO DAILY [facility] Last Admin: 05/15/25 08:47 Dose: 50 mg Nicotine (Nicotine 21 Mg Patch.Td24) 21 mg TRANSDERMA DAILY PRN PRN Reason: Pain, Mild (Pain Scale 1-3) Nicotine Polacrilex (Nicotine Polacrilex 2 Mg Gum) 4 mg BUCCAL Q2H PRN PRN Reason: Nicotine Cravings Olanzapine (Olanzapine 10 Mg Tablet) 10 mg PO BEDTIME [facility] Last Admin: 05/14/25 20:55 Dose: 10 mg Polyethylene Glycol (Polyethylene Glycol 3350 17 Gm Powd.Pack) 17 gm PO DAILY PRN PRN Reason: Constipation Last Admin: 05/13/25 10:43 Dose: 17 gm Propranolol HCl (Propranolol Hcl 20 Mg Tablet) 20 mg PO BID [facility]; Protocol Last Admin: 05/15/25 08:46 Dose: 20 mg Trazodone HCl (Trazodone Hcl 50 Mg Tablet) 50 mg PO BEDTIME PRN PRN Reason: Insomnia Last Admin: 05/05/25 20:22 Dose: 50 mg Trazodone HCl (Trazodone Hcl 100 Mg Tablet) 100 mg PO BEDTIME [facility] Last Admin: 05/14/25 20:55 Dose: 100 mg Allergies Allergies Allergy/AdvReac Type Severity Reaction Status Date / Time mirtazapine (MIRTAZAPINE) Allergy Intermediate UNKNOWN Verified 05/04/25 11:34 sulfamethoxazole (From Allergy Unknown RASH Verified 05/04/25 11:34 BACTRIM) trimethoprim (From BACTRIM) Allergy Unknown RASH Verified 05/04/25 11:34 Assessment & Plan Assessment & Plan (1) MDD (major depressive disorder), recurrent episode, severe: Qualifiers: Psychotic features: without psychotic features Qualified Code(s): F33.2 - Major depressive disorder, recurrent severe without psychotic features Status: Acute Code(s): F33.2 - Major depressive disorder, recurrent severe without psychotic features (2) JESSICA (generalized anxiety disorder): Status: Acute Code(s): F41.1 - Generalized anxiety disorder (3) Panic disorder: Status: Acute Code(s): F41.0 - Panic disorder [episodic paroxysmal anxiety] (4) Alcohol abuse: Status: Acute Code(s): F10.10 - Alcohol abuse, uncomplicated (5) HTN (hypertension): Status: Acute Code(s): I10 - Essential (primary) hypertension (6) Sleep apnea: Status: Acute Code(s): G47.30 - Sleep apnea, unspecified (7) Homeless: Status: Acute Code(s): Z59.00 - Homelessness unspecified Plan HPI: Pt is a 44 yo male with hx of MDD, anxiety/panic attacks, JESSICA and alcohol abuse who presents for worsening anxiety and vague SI in face of medication changes, having just been discharged from [facility] yesterday. Patient reports that when he left in January he was doing well for a little while but then got suicidal and went to [facility] where he was started on Wellbutrin. Patient said for 2 months he was doing well on Wellbutrin, feeling more like himself and continued to go to the [facility]. Patient said that despite doing well, suddenly, without any warning he became very anxious and depressed for 1 day wanted to hang himself; he told staff and was admitted to [facility] where he was taken off Wellbutrin and instead started on lithium which he said he did not want. Patient remained feeling sad throughout the admission, was discharged this past Monday, went to a friend's, drank a half pt of whiskey after 5 months of sobriety again became suicidal resulting in this admission. Patient reports he has had trouble sleeping for weeks and keeps waking up about 02:00; he just feels tired all day long and wishes he could sleep; no other manic symptoms. No drug use. Formulation/clinical reasoning: Patient seems to do overall well and then for unknown reasons will have 1 day where he gets very dysregulated and suicidal which lands him in the hospital; it seems that these bouts of dysregulated are transient if he could stay out of the hospital for that 1 day, it would resolve on its own. Although patient said he did not like lithium at [facility], he has reported that he was on lithium in the past and he thought it was helpful and was not sure why it was ever discontinued. Patient does not seem to have discrete manic episodes but will review history again. He does have a history of OCD listed (though does not seem to have this) for which he was using Prozac but by patient's own report he seemed to have been doing well on Wellbutrin (plus or minus Lamictal) and would like to restart that now. That said, lithium might be helpful as well. Patient only drank for 1 day so does not need CIWA. Intermittent SI but patient says he feels he will be safe on the unit; Currently no SI. Part of patient's extreme anxiety is that he is now homeless and feels ashamed that his family is angry at him. -reviewed hx and no hx of discreet manic episodes or behaviors. 05/07 Early this morning patient found sitting in his room with CPAP to around his neck; it was not tight and patient was not in the process of trying to hang himself. He said i was so tired...i had not slept...it was a desperate moment...i felt like shit...so many things on my mind, like a non-stop carosel of worry... Patient says he was crying loudly before hand to draw attention to himself and was this was not an attempt but a cry for help. Community Placement Worker agrees pt does not need 1:1 Discussed history and patient able to identify some of the things that went into his decompensation that resulted in the [facility] admission which included a staff member at the program saying something unkind to him and accusatory which made him very anxious and which he felt was unfair; he said he just thought about it over and over until he became very overwhelmed and then suddenly suicidal. Patient agrees that if he had someone to talk to that he probably could have short circuiting the spiral and rebounded on his own without inpatient admission. Discussed medications at length and patient agrees with continuing Wellbutrin titration since he said it really seemed to help last time he was on it. Discussed lithium again and patient anxious about it saying he got palpitations last time he was tried -prozac worked for about 10 years and then stopped working which is why he was switched to Wellbutrin -after [facility], when started on Wellbutrin was also on Lamictal 100mg (has been on 200mg BID) 05/08 patient tolerating increased Wellbutrin; continue with this plan. Patient would like program 05/09 very anxious; agrees to starting Trileptal after reviewing risks/side effects. It is possible that patient is anxious with increased Wellbutrin over he has tolerated Wellbutrin 300 mg in the past. Will monitor and consider lowering back to 150mg. Patient agrees to start going to groups 05/10 Patient remains exceedingly anxious, asking brief writer same question multiple times such as if he runs out of clonazepam will he have a seizure (patient is on 1 mg b.i.d.) and despite brief writer's reassurance, he asks again. Patient apologizes every time but acknowledges he can not stop though intrusive worry. Discussed medication options, reviewing risks/side effects of TCAs and patient agrees to start on clomipramine given that he has numerous trials on SSRI/SNRI.(will monitor for dry mouth, constipation, urinary retention, orthostatic hypotension, tachycardia etc.) -will lower Wellbutrin to 150 mg; possibly titrated to quickly exacerbating some anxiety 05/11 Patient reports feeling a little better today. And wonders if perhaps it is because Wellbutrin was lowered. So far tolerating clomipramine. Patient continuing to ask repeated questions about worries despite having been given answers and educated on various topics. Talked about therapeutic approach and coping skills and patient will start to categorize his worries into realistic worries verse excessive worries and if he wants to talk about an excessive worry, he will bringing up as such and asked how to cope with it. Discussed substance abuse and patient has stayed mostly sober for year, only a few relapses limited to only 1 or 2 days at most -[place] need Trileptal since working with clomipramine instead; will continue Lamictal for now; he has been on this medication for years and it is possible it is helpful and possible it is not effective 05/12 pt reports doing a little better today; still very anxious but using coping skills to challenge excessive worries. Discussed medications and pt agrees to continue with clomipramine and wellbutrin, titrating as needed. Discussed aftercare and pt wants a program 05/13 Patient continues to do better. Patient reports that both depression and anxiety are improved. He still has anxiety but is getting better and better at noticing it and employing coping skills. Patient feels he is benefitting from groups and also feels that the medications are helpful. Discussed medication regimen and patient agrees with increasing clomipramine. 05/14 patient continues to improve; continue current treatment plan; some respiratory symptoms however negative for RSV/COVID/flu Patient is in good behavioral and impulse control and engaged in treatment; he is appropriate with both peers and staff. Patient is safe. 05/15: Continue current treatment regimen. Encouraged participation in groups. Plan: CV Q 15 minute checks CPAP q.h.s. Increase to clomipramine 50 mg q.h.s. Lower back to Wellbutrin XL 150 mg daily Continue hydroxyzine 50 mg t.i.d. prn continue Zyprexa 10 mg q.h.s. continue Lamictal 25 mg daily; Restarted on Lamictal at [facility] after having been off for couple of weeks (used to be on 06/17 5 mg) Continue propranolol 20 mg b.i.d. continue amlodipine 10 mg daily Continue atorvastatin 20 mg q.h.s. Continue trazodone 100 mg q.h.s. Continue clonazepam 1 mg b.i.d. (patient has been on this dose for about 15 years) Consider: Consider clonidine 0.1 mg daily p.r.n. Consider Zyprexa 2.5 mg q.4 AH p.r.n. Patient used to be on: Prozac 80 mg daily for OCD Metformin 500 mg daily for metabolic syndrome since on Zyprexa Naltrexone 50 mg daily for alcohol cravings; Patient educated on: therapeutic strategies Reason for continued inpatient stay Substantial Risk for: rapid decompensation Time Spent With Patient Time: Total time managing care of this patient today ____ minutes.
[2025-05-15 20:00] VITALS: BP 122/72; PULSE 77; TEMP 36.8; O2SAT 95
[2025-05-16 09:00] VITALS: BP 118/71; PULSE 81; RESP 16; TEMP 36.9; O2SAT 96
[2025-05-16] MEDS: buPROPion HCl XL 150 MG TAB.ER.24H PO (09:03)
--- NOTE | 2025-05-16 18:23 | P.PNPSI_ITS ---
Subjective Subjective Date of Service: 05/16/25 Reason For Visit: bipolar disorder, depressed, alcohol use disorder Interim History: Met with patient; discussed with team Patient continues to do better working on coping with anxiety; feels that medications have been helping and agrees to titration of clomipramine. Diagnostics Vital Signs (24Hr): Vital Signs - 24 hr 05/15/25 20:00 05/16/25 09:00 Temperature 98.3 F 98.4 F Pulse Rate 77 81 Respiratory Rate 16 Blood Pressure 122/72 118/71 Pulse Oximetry 95 96 Oxygen Delivery Method Room Air Room Air BMI result Body Mass Index 32.8 Labs 05/04/25 12:20 05/04/25 12:20 Medications Medications Current Medications Acetaminophen (Acetaminophen 325 Mg Tablet) 650 mg PO Q6H PRN PRN Reason: Headache/Pain, Scale 1-10 Last Admin: 05/15/25 14:08 Dose: 650 mg Al Hydroxide/Mg Hydroxide (Magnesium Hydrox/Alum Hydrox 30 Ml Oral.Susp) 30 ml PO Q6H PRN PRN Reason: Heartburn/Nausea Albuterol Sulfate (Albuterol Sulfate 90 Mcg 8 Gm Inhaler) 2 puff INHALE Q4H PRN PRN Reason: Shortness of Breath Amlodipine Besylate (Amlodipine Besylate 10 Mg Tablet) 10 mg PO DAILY [facility]; Protocol Last Admin: 05/16/25 09:03 Dose: 10 mg Atorvastatin Calcium (Atorvastatin Calcium 20 Mg Tablet) 20 mg PO BEDTIME [facility] Last Admin: 05/15/25 20:38 Dose: 20 mg Bupropion HCl (Bupropion Hcl Xl 150 Mg Tab.Er.24h) 150 mg PO DAILY [facility] Last Admin: 05/16/25 09:03 Dose: 150 mg Calcium Carbonate (Calcium Carbonate 750 Mg Tab.Chew) 750 mg PO Q6H PRN PRN Reason: Heartburn Clomipramine HCl (Clomipramine Hcl 25 Mg Capsule) 50 mg PO BEDTIME [facility] Last Admin: 05/15/25 20:37 Dose: 50 mg Clonazepam (Clonazepam 1 Mg Tablet) 1 mg PO BID [facility] Last Admin: 05/16/25 09:04 Dose: 1 mg Docusate Sodium (Docusate Sodium 100 Mg Capsule) 100 mg PO BID [facility] Last Admin: 05/16/25 09:03 Dose: 100 mg Hydroxyzine HCl (Hydroxyzine Hcl 50 Mg Tablet) 50 mg PO TID PRN PRN Reason: moderate anxiety/insomnia Last Admin: 05/15/25 12:33 Dose: 50 mg Lamotrigine (Lamotrigine 25 Mg Tablet) 25 mg PO DAILY [facility] Last Admin: 05/16/25 09:03 Dose: 25 mg Magnesium Hydroxide (Milk Of Magnesia 30 Ml Oral.Susp) 30 ml PO DAILY PRN PRN Reason: Constipation Last Admin: 05/12/25 17:36 Dose: 30 ml Melatonin (Melatonin 3 Mg Tablet) 6 mg PO BEDTIME [facility] Last Admin: 05/15/25 20:39 Dose: 6 mg Multivitamins/Vitamin C (Multivitamin Tablet) 1 tab PO DAILY [facility] Last Admin: 05/16/25 09:03 Dose: 1 tab Naltrexone HCl (Naltrexone Hcl 50 Mg Tablet) 50 mg PO DAILY [facility] Last Admin: 05/16/25 09:04 Dose: 50 mg Nicotine (Nicotine 21 Mg Patch.Td24) 21 mg TRANSDERMA DAILY PRN PRN Reason: Pain, Mild (Pain Scale 1-3) Nicotine Polacrilex (Nicotine Polacrilex 2 Mg Gum) 4 mg BUCCAL Q2H PRN PRN Reason: Nicotine Cravings Olanzapine (Olanzapine 10 Mg Tablet) 10 mg PO BEDTIME [facility] Last Admin: 05/15/25 20:38 Dose: 10 mg Polyethylene Glycol (Polyethylene Glycol 3350 17 Gm Powd.Pack) 17 gm PO DAILY PRN PRN Reason: Constipation Last Admin: 05/15/25 18:18 Dose: 17 gm Propranolol HCl (Propranolol Hcl 20 Mg Tablet) 20 mg PO BID [facility]; Protocol Last Admin: 05/16/25 09:04 Dose: 20 mg Trazodone HCl (Trazodone Hcl 50 Mg Tablet) 50 mg PO BEDTIME PRN PRN Reason: Insomnia Last Admin: 05/05/25 20:22 Dose: 50 mg Trazodone HCl (Trazodone Hcl 100 Mg Tablet) 100 mg PO BEDTIME [facility] Last Admin: 05/15/25 20:37 Dose: 100 mg Allergies Allergies Allergy/AdvReac Type Severity Reaction Status Date / Time mirtazapine (MIRTAZAPINE) Allergy Intermediate UNKNOWN Verified 05/04/25 11:34 sulfamethoxazole (From Allergy Unknown RASH Verified 05/04/25 11:34 BACTRIM) trimethoprim (From BACTRIM) Allergy Unknown RASH Verified 05/04/25 11:34 Assessment & Plan Assessment & Plan (1) MDD (major depressive disorder), recurrent episode, severe: Qualifiers: Psychotic features: without psychotic features Qualified Code(s): F33.2 - Major depressive disorder, recurrent severe without psychotic features Status: Acute Code(s): F33.2 - Major depressive disorder, recurrent severe without psychotic features (2) JESSICA (generalized anxiety disorder): Status: Acute Code(s): F41.1 - Generalized anxiety disorder (3) Panic disorder: Status: Acute Code(s): F41.0 - Panic disorder [episodic paroxysmal anxiety] (4) Alcohol abuse: Status: Acute Code(s): F10.10 - Alcohol abuse, uncomplicated (5) HTN (hypertension): Status: Acute Code(s): I10 - Essential (primary) hypertension (6) Sleep apnea: Status: Acute Code(s): G47.30 - Sleep apnea, unspecified (7) Homeless: Status: Acute Code(s): Z59.00 - Homelessness unspecified Plan HPI: Pt is a 44 yo male with hx of MDD, anxiety/panic attacks, JESSICA and alcohol abuse who presents for worsening anxiety and vague SI in face of medication changes, having just been discharged from [facility] yesterday. Patient reports that when he left in January he was doing well for a little while but then got suicidal and went to [facility] where he was started on Wellbutrin. Patient said for 2 months he was doing well on Wellbutrin, feeling more like himself and continued to go to the [facility]. Patient said that despite doing well, suddenly, without any warning he became very anxious and depressed for 1 day wanted to hang himself; he told staff and was admitted to [facility] where he was taken off Wellbutrin and instead started on lithium which he said he did not want. Patient remained feeling sad throughout the admission, was discharged this past Monday, went to a friend's, drank a half pt of whiskey after 5 months of sobriety again became suicidal resulting in this admission. Patient reports he has had trouble sleeping for weeks and keeps waking up about 02:00; he just feels tired all day long and wishes he could sleep; no other manic symptoms. No drug use. Formulation/clinical reasoning: Patient seems to do overall well and then for unknown reasons will have 1 day where he gets very dysregulated and suicidal which lands him in the hospital; it seems that these bouts of dysregulated are transient if he could stay out of the hospital for that 1 day, it would resolve on its own. Although patient said he did not like lithium at [facility], he has reported that he was on lithium in the past and he thought it was helpful and was not sure why it was ever discontinued. Patient does not seem to have discrete manic episodes but will review history again. He does have a history of OCD listed (though does not seem to have this) for which he was using Prozac but by patient's own report he seemed to have been doing well on Wellbutrin (plus or minus Lamictal) and would like to restart that now. That said, lithium might be helpful as well. Patient only drank for 1 day so does not need CIWA. Intermittent SI but patient says he feels he will be safe on the unit; Currently no SI. Part of patient's extreme anxiety is that he is now homeless and feels ashamed that his family is angry at him. -reviewed hx and no hx of discreet manic episodes or behaviors. 05/07 Early this morning patient found sitting in his room with CPAP to around his neck; it was not tight and patient was not in the process of trying to hang himself. He said i was so tired...i had not slept...it was a desperate moment...i felt like shit...so many things on my mind, like a non-stop carosel of worry... Patient says he was crying loudly before hand to draw attention to himself and was this was not an attempt but a cry for help. Vp Of Marketing agrees pt does not need 1:1 Discussed history and patient able to identify some of the things that went into his decompensation that resulted in the [facility] admission which included a staff member at the program saying something unkind to him and accusatory which made him very anxious and which he felt was unfair; he said he just thought about it over and over until he became very overwhelmed and then suddenly suicidal. Patient agrees that if he had someone to talk to that he probably could have short circuiting the spiral and rebounded on his own without inpatient admission. Discussed medications at length and patient agrees with continuing Wellbutrin titration since he said it really seemed to help last time he was on it. Discussed lithium again and patient anxious about it saying he got palpitations last time he was tried -prozac worked for about 10 years and then stopped working which is why he was switched to Wellbutrin -after [facility], when started on Wellbutrin was also on Lamictal 100mg (has been on 200mg BID) 05/08 patient tolerating increased Wellbutrin; continue with this plan. Patient would like program 05/09 very anxious; agrees to starting Trileptal after reviewing risks/side effects. It is possible that patient is anxious with increased Wellbutrin over he has tolerated Wellbutrin 300 mg in the past. Will monitor and consider lowering back to 150mg. Patient agrees to start going to groups 05/10 Patient remains exceedingly anxious, asking radio script writer same question multiple times such as if he runs out of clonazepam will he have a seizure (patient is on 1 mg b.i.d.) and despite radio script writer's reassurance, he asks again. Patient apologizes every time but acknowledges he can not stop though intrusive worry. Discussed medication options, reviewing risks/side effects of TCAs and patient agrees to start on clomipramine given that he has numerous trials on SSRI/SNRI.(will monitor for dry mouth, constipation, urinary retention, orthostatic hypotension, tachycardia etc.) -will lower Wellbutrin to 150 mg; possibly titrated to quickly exacerbating some anxiety 05/11 Patient reports feeling a little better today. And wonders if perhaps it is because Wellbutrin was lowered. So far tolerating clomipramine. Patient continuing to ask repeated questions about worries despite having been given answers and educated on various topics. Talked about therapeutic approach and coping skills and patient will start to categorize his worries into realistic worries verse excessive worries and if he wants to talk about an excessive worry, he will bringing up as such and asked how to cope with it. Discussed substance abuse and patient has stayed mostly sober for year, only a few relapses limited to only 1 or 2 days at most -DC need Trileptal since working with clomipramine instead; will continue Lamictal for now; he has been on this medication for years and it is possible it is helpful and possible it is not effective 05/12 pt reports doing a little better today; still very anxious but using coping skills to challenge excessive worries. Discussed medications and pt agrees to continue with clomipramine and wellbutrin, titrating as needed. Discussed aftercare and pt wants a program 05/13 Patient continues to do better. Patient reports that both depression and anxiety are improved. He still has anxiety but is getting better and better at noticing it and employing coping skills. Patient feels he is benefitting from groups and also feels that the medications are helpful. Discussed medication regimen and patient agrees with increasing clomipramine. 05/14 patient continues to improve; continue current treatment plan; some respiratory symptoms however negative for RSV/COVID/flu 05/16 Patient continues to do better working on coping with anxiety; feels that medications have been helping and agrees to titration of clomipramine (will increase to 75 mg on 05/17) Patient is stable on current medication regimen Patient is in good behavioral and impulse control and engaged in treatment; he is appropriate with both peers and staff. Patient is safe. Plan: CV Q 15 minute checks CPAP q.h.s. Increase to clomipramine 75 mg q.h.s. Continue Wellbutrin XL 150 mg daily Continue hydroxyzine 50 mg t.i.d. prn continue Zyprexa 10 mg q.h.s. continue Lamictal 25 mg daily; Restarted on Lamictal at [facility] after having been off for couple of weeks (used to be on 06/17 5 mg) Continue propranolol 20 mg b.i.d. continue amlodipine 10 mg daily Continue atorvastatin 20 mg q.h.s. Continue trazodone 100 mg q.h.s. Continue clonazepam 1 mg b.i.d. (patient has been on this dose for about 15 years) Consider: Consider clonidine 0.1 mg daily p.r.n. Consider Zyprexa 2.5 mg q.4 AH p.r.n. Patient used to be on: Prozac 80 mg daily for OCD Metformin 500 mg daily for metabolic syndrome since on Zyprexa Naltrexone 50 mg daily for alcohol cravings; Patient educated on: diagnosis, medication risk/benefits and therapeutic strategies Informed Consent: understands Reason for continued inpatient stay Substantial Risk for: med/psych decompensation Time Spent With Patient Time: Total time managing care of this patient today ____ minutes.
[2025-05-16 19:55] VITALS: BP 123/68; PULSE 79; RESP 16; TEMP 36.2; O2SAT 96
[2025-05-17 08:00] VITALS: BP 129/71; PULSE 96; RESP 20; TEMP 37.1; O2SAT 94
[2025-05-17 09:04] VITALS: BP 129/71; PULSE 96
[2025-05-17 09:05] VITALS: BP 129/71
[2025-05-17] MEDS: buPROPion HCl XL 150 MG TAB.ER.24H PO (09:05)
--- NOTE | 2025-05-17 15:19 | HO.PSYCHPN ---
Subjective Subjective Date of Service: 05/17/25 Reason For Visit: bipolar disorder, depressed, alcohol use disorder Interim History: Active on unit. Patient reports feeling alright today; pt stated, I'm having a little anxiety and depression ; he reports sleeping well last night. denies SI/HI/VH/AH. Continue tx plan. Medication Compliance: Yes Side effects from medications: No Mental Status Exam Mental Status Exam Patient Appearance: Well Grooomed Patient Orientation: Person, Place, Time and Situation Level of Consciousness: Awake and Alert Patient Behavior: Appropriate, Cooperative and Good Eye Contact Mood Description: Depressed Affect Description: Calm Ability to Follow Directions: Good Speech Pattern: Clear Memory Description: Intact Hallucinations: None Delusions: Not Present Thought Process: Intact Thought Content: positive for Intact Diagnostics Vital Signs (24Hr): Vital Signs - 24 hr 05/16/25 19:55 05/17/25 08:00 05/17/25 09:04 Temperature 97.2 F 98.8 F Pulse Rate 79 96 96 Respiratory Rate 16 20 Blood Pressure 123/68 129/71 129/71 Pulse Oximetry 96 94 Oxygen Delivery Method Room Air Room Air 05/17/25 09:05 Temperature Pulse Rate Respiratory Rate Blood Pressure 129/71 Pulse Oximetry Oxygen Delivery Method BMI result Body Mass Index 32.8 Labs 05/04/25 12:20 05/04/25 12:20 Medications Medications Current Medications Acetaminophen (Acetaminophen 325 Mg Tablet) 650 mg PO Q6H PRN PRN Reason: Headache/Pain, Scale 1-10 Last Admin: 05/17/25 12:34 Dose: 650 mg Al Hydroxide/Mg Hydroxide (Magnesium Hydrox/Alum Hydrox 30 Ml Oral.Susp) 30 ml PO Q6H PRN PRN Reason: Heartburn/Nausea Albuterol Sulfate (Albuterol Sulfate 90 Mcg 8 Gm Inhaler) 2 puff INHALE Q4H PRN PRN Reason: Shortness of Breath Amlodipine Besylate (Amlodipine Besylate 10 Mg Tablet) 10 mg PO DAILY [facility]; Protocol Last Admin: 05/17/25 09:05 Dose: 10 mg Atorvastatin Calcium (Atorvastatin Calcium 20 Mg Tablet) 20 mg PO BEDTIME MARTINEZ Last Admin: 05/16/25 20:26 Dose: 20 mg Bupropion HCl (Bupropion Hcl Xl 150 Mg Tab.Er.24h) 150 mg PO DAILY [facility] Last Admin: 05/17/25 09:05 Dose: 150 mg Calcium Carbonate (Calcium Carbonate 750 Mg Tab.Chew) 750 mg PO Q6H PRN PRN Reason: Heartburn Clomipramine HCl (Clomipramine Hcl 25 Mg Capsule) 75 mg PO BEDTIME [facility] Clonazepam (Clonazepam 1 Mg Tablet) 1 mg PO BID [facility] Last Admin: 05/17/25 09:06 Dose: 1 mg Docusate Sodium (Docusate Sodium 100 Mg Capsule) 100 mg PO BID [facility] Last Admin: 05/17/25 09:04 Dose: 100 mg Hydroxyzine HCl (Hydroxyzine Hcl 50 Mg Tablet) 50 mg PO TID PRN PRN Reason: moderate anxiety/insomnia Last Admin: 05/17/25 12:33 Dose: 50 mg Lamotrigine (Lamotrigine 25 Mg Tablet) 25 mg PO DAILY [facility] Last Admin: 05/17/25 09:05 Dose: 25 mg Magnesium Hydroxide (Milk Of Magnesia 30 Ml Oral.Susp) 30 ml PO DAILY PRN PRN Reason: Constipation Last Admin: 05/12/25 17:36 Dose: 30 ml Melatonin (Melatonin 3 Mg Tablet) 6 mg PO BEDTIME [facility] Last Admin: 05/16/25 20:26 Dose: 6 mg Multivitamins/Vitamin C (Multivitamin Tablet) 1 tab PO DAILY [facility] Last Admin: 05/17/25 09:06 Dose: 1 tab Naltrexone HCl (Naltrexone Hcl 50 Mg Tablet) 50 mg PO DAILY [facility] Last Admin: 05/17/25 09:06 Dose: 50 mg Nicotine (Nicotine 21 Mg Patch.Td24) 21 mg TRANSDERMA DAILY PRN PRN Reason: Pain, Mild (Pain Scale 1-3) Nicotine Polacrilex (Nicotine Polacrilex 2 Mg Gum) 4 mg BUCCAL Q2H PRN PRN Reason: Nicotine Cravings Olanzapine (Olanzapine 10 Mg Tablet) 10 mg PO BEDTIME [facility] Last Admin: 05/16/25 20:26 Dose: 10 mg Polyethylene Glycol (Polyethylene Glycol 3350 17 Gm Powd.Pack) 17 gm PO DAILY PRN PRN Reason: Constipation Last Admin: 05/17/25 12:33 Dose: 17 gm Propranolol HCl (Propranolol Hcl 20 Mg Tablet) 20 mg PO BID [facility]; Protocol Last Admin: 05/17/25 09:04 Dose: 20 mg Trazodone HCl (Trazodone Hcl 50 Mg Tablet) 50 mg PO BEDTIME PRN PRN Reason: Insomnia Last Admin: 05/05/25 20:22 Dose: 50 mg Trazodone HCl (Trazodone Hcl 100 Mg Tablet) 100 mg PO BEDTIME MARTINEZ Last Admin: 05/16/25 20:25 Dose: 100 mg Allergies Allergies Allergy/AdvReac Type Severity Reaction Status Date / Time mirtazapine (MIRTAZAPINE) Allergy Intermediate UNKNOWN Verified 05/04/25 11:34 sulfamethoxazole (From Allergy Unknown RASH Verified 05/04/25 11:34 BACTRIM) trimethoprim (From BACTRIM) Allergy Unknown RASH Verified 05/04/25 11:34 Assessment & Plan Assessment & Plan (1) MDD (major depressive disorder), recurrent episode, severe: Qualifiers: Psychotic features: without psychotic features Qualified Code(s): F33.2 - Major depressive disorder, recurrent severe without psychotic features Status: Acute Code(s): F33.2 - Major depressive disorder, recurrent severe without psychotic features (2) JESSICA (generalized anxiety disorder): Status: Acute Code(s): F41.1 - Generalized anxiety disorder (3) Panic disorder: Status: Acute Code(s): F41.0 - Panic disorder [episodic paroxysmal anxiety] (4) Alcohol abuse: Status: Acute Code(s): F10.10 - Alcohol abuse, uncomplicated (5) HTN (hypertension): Status: Acute Code(s): I10 - Essential (primary) hypertension (6) Sleep apnea: Status: Acute Code(s): G47.30 - Sleep apnea, unspecified (7) Homeless: Status: Acute Code(s): Z59.00 - Homelessness unspecified Plan HPI: Pt is a 44 yo male with hx of MDD, anxiety/panic attacks, JESSICA and alcohol abuse who presents for worsening anxiety and vague SI in face of medication changes, having just been discharged from [facility] yesterday. Patient reports that when he left in January he was doing well for a little while but then got suicidal and went to [facility] where he was started on Wellbutrin. Patient said for 2 months he was doing well on Wellbutrin, feeling more like himself and continued to go to the [facility]. Patient said that despite doing well, suddenly, without any warning he became very anxious and depressed for 1 day wanted to hang himself; he told staff and was admitted to [facility] where he was taken off Wellbutrin and instead started on lithium which he said he did not want. Patient remained feeling sad throughout the admission, was discharged this past Monday, went to a friend's, drank a half pt of whiskey after 5 months of sobriety again became suicidal resulting in this admission. Patient reports he has had trouble sleeping for weeks and keeps waking up about 02:00; he just feels tired all day long and wishes he could sleep; no other manic symptoms. No drug use. Formulation/clinical reasoning: Patient seems to do overall well and then for unknown reasons will have 1 day where he gets very dysregulated and suicidal which lands him in the hospital; it seems that these bouts of dysregulated are transient if he could stay out of the hospital for that 1 day, it would resolve on its own. Although patient said he did not like lithium at [facility], he has reported that he was on lithium in the past and he thought it was helpful and was not sure why it was ever discontinued. Patient does not seem to have discrete manic episodes but will review history again. He does have a history of OCD listed (though does not seem to have this) for which he was using Prozac but by patient's own report he seemed to have been doing well on Wellbutrin (plus or minus Lamictal) and would like to restart that now. That said, lithium might be helpful as well. Patient only drank for 1 day so does not need CIWA. Intermittent SI but patient says he feels he will be safe on the unit; Currently no SI. Part of patient's extreme anxiety is that he is now homeless and feels ashamed that his family is angry at him. -reviewed hx and no hx of discreet manic episodes or behaviors. 05/07 Early this morning patient found sitting in his room with CPAP to around his neck; it was not tight and patient was not in the process of trying to hang himself. He said i was so tired...i had not slept...it was a desperate moment...i felt like shit...so many things on my mind, like a non-stop carosel of worry... Patient says he was crying loudly before hand to draw attention to himself and was this was not an attempt but a cry for help. Clinical Trial Head agrees pt does not need 1:1 Discussed history and patient able to identify some of the things that went into his decompensation that resulted in the [facility] admission which included a staff member at the program saying something unkind to him and accusatory which made him very anxious and which he felt was unfair; he said he just thought about it over and over until he became very overwhelmed and then suddenly suicidal. Patient agrees that if he had someone to talk to that he probably could have short circuiting the spiral and rebounded on his own without inpatient admission. Discussed medications at length and patient agrees with continuing Wellbutrin titration since he said it really seemed to help last time he was on it. Discussed lithium again and patient anxious about it saying he got palpitations last time he was tried -prozac worked for about 10 years and then stopped working which is why he was switched to Wellbutrin -after [facility], when started on Wellbutrin was also on Lamictal 100mg (has been on 200mg BID) 05/08 patient tolerating increased Wellbutrin; continue with this plan. Patient would like program 05/09 very anxious; agrees to starting Trileptal after reviewing risks/side effects. It is possible that patient is anxious with increased Wellbutrin over he has tolerated Wellbutrin 300 mg in the past. Will monitor and consider lowering back to 150mg. Patient agrees to start going to groups 05/10 Patient remains exceedingly anxious, asking rewriter same question multiple times such as if he runs out of clonazepam will he have a seizure (patient is on 1 mg b.i.d.) and despite rewriter's reassurance, he asks again. Patient apologizes every time but acknowledges he can not stop though intrusive worry. Discussed medication options, reviewing risks/side effects of TCAs and patient agrees to start on clomipramine given that he has numerous trials on SSRI/SNRI.(will monitor for dry mouth, constipation, urinary retention, orthostatic hypotension, tachycardia etc.) -will lower Wellbutrin to 150 mg; possibly titrated to quickly exacerbating some anxiety 05/11 Patient reports feeling a little better today. And wonders if perhaps it is because Wellbutrin was lowered. So far tolerating clomipramine. Patient continuing to ask repeated questions about worries despite having been given answers and educated on various topics. Talked about therapeutic approach and coping skills and patient will start to categorize his worries into realistic worries verse excessive worries and if he wants to talk about an excessive worry, he will bringing up as such and asked how to cope with it. Discussed substance abuse and patient has stayed mostly sober for year, only a few relapses limited to only 1 or 2 days at most -DC need Trileptal since working with clomipramine instead; will continue Lamictal for now; he has been on this medication for years and it is possible it is helpful and possible it is not effective 05/12 pt reports doing a little better today; still very anxious but using coping skills to challenge excessive worries. Discussed medications and pt agrees to continue with clomipramine and wellbutrin, titrating as needed. Discussed aftercare and pt wants a program 05/13 Patient continues to do better. Patient reports that both depression and anxiety are improved. He still has anxiety but is getting better and better at noticing it and employing coping skills. Patient feels he is benefitting from groups and also feels that the medications are helpful. Discussed medication regimen and patient agrees with increasing clomipramine. 05/14 patient continues to improve; continue current treatment plan; some respiratory symptoms however negative for RSV/COVID/flu 05/16 Patient continues to do better working on coping with anxiety; feels that medications have been helping and agrees to titration of clomipramine (will increase to 75 mg on 05/17) Patient is stable on current medication regimen Patient is in good behavioral and impulse control and engaged in treatment; he is appropriate with both peers and staff. Patient is safe. 05/17: Active on unit. Patient reports feeling alright today; pt stated, I'm having a little anxiety and depression ; he reports sleeping well last night. denies SI/HI/VH/AH. Continue tx plan. Plan: CV Q 15 minute checks CPAP q.h.s. Increase to clomipramine 75 mg q.h.s. Continue Wellbutrin XL 150 mg daily Continue hydroxyzine 50 mg t.i.d. prn continue Zyprexa 10 mg q.h.s. continue Lamictal 25 mg daily; Restarted on Lamictal at [facility] after having been off for couple of weeks (used to be on 01/20 5 mg) Continue propranolol 20 mg b.i.d. continue amlodipine 10 mg daily Continue atorvastatin 20 mg q.h.s. Continue trazodone 100 mg q.h.s. Continue clonazepam 1 mg b.i.d. (patient has been on this dose for about 15 years) Consider: Consider clonidine 0.1 mg daily p.r.n. Consider Zyprexa 2.5 mg q.4 AH p.r.n. Patient used to be on: Prozac 80 mg daily for OCD Metformin 500 mg daily for metabolic syndrome since on Zyprexa Naltrexone 50 mg daily for alcohol cravings; Patient educated on: diagnosis and medication risk/benefits Reason for continued inpatient stay Substantial Risk for: med/psych decompensation Time Spent With Patient Time: Total time managing care of this patient today _20___ minutes.
[2025-05-17] MEDS: Milk of Magnesia 30 ML ORAL.SUSP PO (17:17)
[2025-05-17 20:00] VITALS: BP 117/72; PULSE 73; RESP 18; TEMP 37.6; O2SAT 96
[2025-05-18 08:00] VITALS: BP 114/67; PULSE 83; RESP 20; TEMP 36.5; O2SAT 97
[2025-05-18] MEDS: buPROPion HCl XL 150 MG TAB.ER.24H PO (08:28)
[2025-05-18] MEDS: Milk of Magnesia 30 ML ORAL.SUSP PO (08:28)
--- NOTE | 2025-05-18 10:31 | HO.PSYCHPN ---
Subjective Subjective Date of Service: 05/18/25 Reason For Visit: bipolar disorder, depressed, alcohol use disorder Interim History: Laying in bed. Napping. Patient reports feeling tired today; pt stated, I slept good, I'm still tired. I'm still feeling anxious and depressed . Encouraged to attend groups. denies SI/HI/VH/AH. Continue tx plan. Medication Compliance: Yes Side effects from medications: No Attending Groups: No Mental Status Exam Mental Status Exam Patient Appearance: Well Grooomed Patient Orientation: Person, Place, Time and Situation Level of Consciousness: Awake and Alert Patient Behavior: Appropriate, Cooperative and Good Eye Contact Mood Description: Depressed Affect Description: Calm Ability to Follow Directions: Good Speech Pattern: Clear Memory Description: Intact Hallucinations: None Delusions: Not Present Thought Process: Intact Thought Content: positive for Intact Diagnostics Vital Signs (24Hr): Vital Signs - 24 hr 05/17/25 20:00 05/18/25 08:00 Temperature 99.6 F 97.7 F Pulse Rate 73 83 Respiratory Rate 18 20 Blood Pressure 117/72 114/67 Pulse Oximetry 96 97 Oxygen Delivery Method Room Air Room Air BMI result Body Mass Index 32.8 Labs 05/04/25 12:20 05/04/25 12:20 Medications Medications Current Medications Acetaminophen (Acetaminophen 325 Mg Tablet) 650 mg PO Q6H PRN PRN Reason: Headache/Pain, Scale 1-10 Last Admin: 05/17/25 12:34 Dose: 650 mg Al Hydroxide/Mg Hydroxide (Magnesium Hydrox/Alum Hydrox 30 Ml Oral.Susp) 30 ml PO Q6H PRN PRN Reason: Heartburn/Nausea Albuterol Sulfate (Albuterol Sulfate 90 Mcg 8 Gm Inhaler) 2 puff INHALE Q4H PRN PRN Reason: Shortness of Breath Amlodipine Besylate (Amlodipine Besylate 10 Mg Tablet) 10 mg PO DAILY [facility]; Protocol Last Admin: 05/18/25 08:29 Dose: 10 mg Atorvastatin Calcium (Atorvastatin Calcium 20 Mg Tablet) 20 mg PO BEDTIME MARTINEZ Last Admin: 05/17/25 20:16 Dose: 20 mg Bupropion HCl (Bupropion Hcl Xl 150 Mg Tab.Er.24h) 150 mg PO DAILY [facility] Last Admin: 05/18/25 08:28 Dose: 150 mg Calcium Carbonate (Calcium Carbonate 750 Mg Tab.Chew) 750 mg PO Q6H PRN PRN Reason: Heartburn Clomipramine HCl (Clomipramine Hcl 25 Mg Capsule) 75 mg PO BEDTIME [facility] Last Admin: 05/17/25 20:17 Dose: 75 mg Clonazepam (Clonazepam 1 Mg Tablet) 1 mg PO BID [facility] Last Admin: 05/18/25 08:28 Dose: 1 mg Docusate Sodium (Docusate Sodium 100 Mg Capsule) 100 mg PO BID [facility] Last Admin: 05/18/25 08:28 Dose: 100 mg Hydroxyzine HCl (Hydroxyzine Hcl 50 Mg Tablet) 50 mg PO TID PRN PRN Reason: moderate anxiety/insomnia Last Admin: 05/17/25 12:33 Dose: 50 mg Lamotrigine (Lamotrigine 25 Mg Tablet) 25 mg PO DAILY [facility] Last Admin: 05/18/25 08:28 Dose: 25 mg Magnesium Hydroxide (Milk Of Magnesia 30 Ml Oral.Susp) 30 ml PO DAILY PRN PRN Reason: Constipation Last Admin: 05/18/25 08:28 Dose: 30 ml Melatonin (Melatonin 3 Mg Tablet) 6 mg PO BEDTIME [facility] Last Admin: 05/17/25 20:16 Dose: 6 mg Multivitamins/Vitamin C (Multivitamin Tablet) 1 tab PO DAILY [facility] Last Admin: 05/18/25 08:28 Dose: 1 tab Naltrexone HCl (Naltrexone Hcl 50 Mg Tablet) 50 mg PO DAILY [facility] Last Admin: 05/18/25 08:28 Dose: 50 mg Nicotine (Nicotine 21 Mg Patch.Td24) 21 mg TRANSDERMA DAILY PRN PRN Reason: Pain, Mild (Pain Scale 1-3) Nicotine Polacrilex (Nicotine Polacrilex 2 Mg Gum) 4 mg BUCCAL Q2H PRN PRN Reason: Nicotine Cravings Olanzapine (Olanzapine 10 Mg Tablet) 10 mg PO BEDTIME [facility] Last Admin: 05/17/25 20:15 Dose: 10 mg Polyethylene Glycol (Polyethylene Glycol 3350 17 Gm Powd.Pack) 17 gm PO DAILY PRN PRN Reason: Constipation Last Admin: 05/17/25 12:33 Dose: 17 gm Propranolol HCl (Propranolol Hcl 20 Mg Tablet) 20 mg PO BID [facility]; Protocol Last Admin: 05/18/25 08:28 Dose: 20 mg Trazodone HCl (Trazodone Hcl 50 Mg Tablet) 50 mg PO BEDTIME PRN PRN Reason: Insomnia Last Admin: 05/05/25 20:22 Dose: 50 mg Trazodone HCl (Trazodone Hcl 100 Mg Tablet) 100 mg PO BEDTIME MARTINEZ Last Admin: 05/17/25 20:16 Dose: 100 mg Allergies Allergies Allergy/AdvReac Type Severity Reaction Status Date / Time mirtazapine (MIRTAZAPINE) Allergy Intermediate UNKNOWN Verified 05/04/25 11:34 sulfamethoxazole (From Allergy Unknown RASH Verified 05/04/25 11:34 BACTRIM) trimethoprim (From BACTRIM) Allergy Unknown RASH Verified 05/04/25 11:34 Assessment & Plan Assessment & Plan (1) MDD (major depressive disorder), recurrent episode, severe: Qualifiers: Psychotic features: without psychotic features Qualified Code(s): F33.2 - Major depressive disorder, recurrent severe without psychotic features Status: Acute Code(s): F33.2 - Major depressive disorder, recurrent severe without psychotic features (2) JESSICA (generalized anxiety disorder): Status: Acute Code(s): F41.1 - Generalized anxiety disorder (3) Panic disorder: Status: Acute Code(s): F41.0 - Panic disorder [episodic paroxysmal anxiety] (4) Alcohol abuse: Status: Acute Code(s): F10.10 - Alcohol abuse, uncomplicated (5) HTN (hypertension): Status: Acute Code(s): I10 - Essential (primary) hypertension (6) Sleep apnea: Status: Acute Code(s): G47.30 - Sleep apnea, unspecified (7) Homeless: Status: Acute Code(s): Z59.00 - Homelessness unspecified Plan HPI: Pt is a 44 yo male with hx of MDD, anxiety/panic attacks, JESSICA and alcohol abuse who presents for worsening anxiety and vague SI in face of medication changes, having just been discharged from [facility] yesterday. Patient reports that when he left in January he was doing well for a little while but then got suicidal and went to [facility] where he was started on Wellbutrin. Patient said for 2 months he was doing well on Wellbutrin, feeling more like himself and continued to go to the [facility]. Patient said that despite doing well, suddenly, without any warning he became very anxious and depressed for 1 day wanted to hang himself; he told staff and was admitted to [facility] where he was taken off Wellbutrin and instead started on lithium which he said he did not want. Patient remained feeling sad throughout the admission, was discharged this past Monday, went to a friend's, drank a half pt of whiskey after 5 months of sobriety again became suicidal resulting in this admission. Patient reports he has had trouble sleeping for weeks and keeps waking up about 02:00; he just feels tired all day long and wishes he could sleep; no other manic symptoms. No drug use. Formulation/clinical reasoning: Patient seems to do overall well and then for unknown reasons will have 1 day where he gets very dysregulated and suicidal which lands him in the hospital; it seems that these bouts of dysregulated are transient if he could stay out of the hospital for that 1 day, it would resolve on its own. Although patient said he did not like lithium at [facility], he has reported that he was on lithium in the past and he thought it was helpful and was not sure why it was ever discontinued. Patient does not seem to have discrete manic episodes but will review history again. He does have a history of OCD listed (though does not seem to have this) for which he was using Prozac but by patient's own report he seemed to have been doing well on Wellbutrin (plus or minus Lamictal) and would like to restart that now. That said, lithium might be helpful as well. Patient only drank for 1 day so does not need CIWA. Intermittent SI but patient says he feels he will be safe on the unit; Currently no SI. Part of patient's extreme anxiety is that he is now homeless and feels ashamed that his family is angry at him. -reviewed hx and no hx of discreet manic episodes or behaviors. 05/07 Early this morning patient found sitting in his room with CPAP to around his neck; it was not tight and patient was not in the process of trying to hang himself. He said i was so tired...i had not slept...it was a desperate moment...i felt like shit...so many things on my mind, like a non-stop carosel of worry... Patient says he was crying loudly before hand to draw attention to himself and was this was not an attempt but a cry for help. Pricing/Signage Team Member agrees pt does not need 1:1 Discussed history and patient able to identify some of the things that went into his decompensation that resulted in the [facility] admission which included a staff member at the program saying something unkind to him and accusatory which made him very anxious and which he felt was unfair; he said he just thought about it over and over until he became very overwhelmed and then suddenly suicidal. Patient agrees that if he had someone to talk to that he probably could have short circuiting the spiral and rebounded on his own without inpatient admission. Discussed medications at length and patient agrees with continuing Wellbutrin titration since he said it really seemed to help last time he was on it. Discussed lithium again and patient anxious about it saying he got palpitations last time he was tried -prozac worked for about 10 years and then stopped working which is why he was switched to Wellbutrin -after coalgatestate, when started on Wellbutrin was also on Lamictal 100mg (has been on 200mg BID) 05/08 patient tolerating increased Wellbutrin; continue with this plan. Patient would like program 05/09 very anxious; agrees to starting Trileptal after reviewing risks/side effects. It is possible that patient is anxious with increased Wellbutrin over he has tolerated Wellbutrin 300 mg in the past. Will monitor and consider lowering back to 150mg. Patient agrees to start going to groups 05/10 Patient remains exceedingly anxious, asking specification writer same question multiple times such as if he runs out of clonazepam will he have a seizure (patient is on 1 mg b.i.d.) and despite specification writer's reassurance, he asks again. Patient apologizes every time but acknowledges he can not stop though intrusive worry. Discussed medication options, reviewing risks/side effects of TCAs and patient agrees to start on clomipramine given that he has numerous trials on SSRI/SNRI.(will monitor for dry mouth, constipation, urinary retention, orthostatic hypotension, tachycardia etc.) -will lower Wellbutrin to 150 mg; possibly titrated to quickly exacerbating some anxiety 05/11 Patient reports feeling a little better today. And wonders if perhaps it is because Wellbutrin was lowered. So far tolerating clomipramine. Patient continuing to ask repeated questions about worries despite having been given answers and educated on various topics. Talked about therapeutic approach and coping skills and patient will start to categorize his worries into realistic worries verse excessive worries and if he wants to talk about an excessive worry, he will bringing up as such and asked how to cope with it. Discussed substance abuse and patient has stayed mostly sober for year, only a few relapses limited to only 1 or 2 days at most -DC need Trileptal since working with clomipramine instead; will continue Lamictal for now; he has been on this medication for years and it is possible it is helpful and possible it is not effective 05/12 pt reports doing a little better today; still very anxious but using coping skills to challenge excessive worries. Discussed medications and pt agrees to continue with clomipramine and wellbutrin, titrating as needed. Discussed aftercare and pt wants a program 05/13 Patient continues to do better. Patient reports that both depression and anxiety are improved. He still has anxiety but is getting better and better at noticing it and employing coping skills. Patient feels he is benefitting from groups and also feels that the medications are helpful. Discussed medication regimen and patient agrees with increasing clomipramine. 05/14 patient continues to improve; continue current treatment plan; some respiratory symptoms however negative for RSV/COVID/flu 05/16 Patient continues to do better working on coping with anxiety; feels that medications have been helping and agrees to titration of clomipramine (will increase to 75 mg on 05/17) Patient is stable on current medication regimen Patient is in good behavioral and impulse control and engaged in treatment; he is appropriate with both peers and staff. Patient is safe. 05/17: Active on unit. Patient reports feeling alright today; pt stated, I'm having a little anxiety and depression ; he reports sleeping well last night. denies SI/HI/VH/AH. Continue tx plan. 05/18: continue tx plan. Plan: CV Q 15 minute checks CPAP q.h.s. Increase to clomipramine 75 mg q.h.s. Continue Wellbutrin XL 150 mg daily Continue hydroxyzine 50 mg t.i.d. prn continue Zyprexa 10 mg q.h.s. continue Lamictal 25 mg daily; Restarted on Lamictal at [facility] after having been off for couple of weeks (used to be on 06/17 5 mg) Continue propranolol 20 mg b.i.d. continue amlodipine 10 mg daily Continue atorvastatin 20 mg q.h.s. Continue trazodone 100 mg q.h.s. Continue clonazepam 1 mg b.i.d. (patient has been on this dose for about 15 years) Consider: Consider clonidine 0.1 mg daily p.r.n. Consider Zyprexa 2.5 mg q.4 AH p.r.n. Patient used to be on: Prozac 80 mg daily for OCD Metformin 500 mg daily for metabolic syndrome since on Zyprexa Naltrexone 50 mg daily for alcohol cravings; Patient educated on: diagnosis, medication risk/benefits and therapeutic strategies Reason for continued inpatient stay Substantial Risk for: med/psych decompensation Time Spent With Patient Time: Total time managing care of this patient today _15___ minutes.
[2025-05-18 19:59] VITALS: BP 113/74; PULSE 77; RESP 18; TEMP 36.9; O2SAT 96
[2025-05-19 08:00] VITALS: BP 114/59; PULSE 87; RESP 18; TEMP 36.9; O2SAT 96
[2025-05-19 08:34] VITALS: BP 114/58
[2025-05-19] MEDS: buPROPion HCl XL 150 MG TAB.ER.24H PO (08:34)
[2025-05-19 08:35] VITALS: BP 114/69; PULSE 87
--- NOTE | 2025-05-19 11:37 | HO.PSYCHPN ---
Subjective Subjective Date of Service: 05/19/25 Reason For Visit: bipolar disorder, depressed, alcohol use disorder Subjective Notes: Conditional Voluntary Healthcare Proxy: No Guardianship: No Medical Problems Affecting Mental Status: No Interim History: Denies SI,HI,AH,VH Preparing for discharge to [facility] on 05/20. Anxious, however, has been to [facility] in the past and knows the structure will be helpful for him. This is an improved situation to current living situation which he discussed. Discussed concerns about medications he brought into the hospital and if [facility] will allow him to continue Klonopin. Antibiotics initiated for ear ache/infection today with hospitalist team Medication Compliance: Yes Side effects from medications: No Attending Groups: Intermittent Review of Systems ear infection Medical Review of Systems: unchanged Review of Systems Review of Systems ear infection Mental Status Exam Mental Status Exam Patient Appearance: Appropriate Patient Orientation: Person, Time and Situation Level of Consciousness: Alert Patient Behavior: Talkative and Good Eye Contact Mood Description: Anxious and Apprehensive Affect Description: Anxious and Apprehensive Patient Cognition Impaired: No Ability to Follow Directions: Good Speech Pattern: Spontaneous Speech Memory Description: Intact Hallucinations: None Delusions: Not Present Thought Process: Goal Oriented Thought Content: positive for Goal Oriented Depressive Symptoms: Increased Anxiety and Thoughts of /Suicide (denies) Judgement: Good Diagnostics Vital Signs (24Hr): Vital Signs - 24 hr 05/18/25 19:59 05/19/25 08:00 05/19/25 08:34 Temperature 98.5 F 98.5 F Pulse Rate 77 87 Respiratory Rate 18 18 Blood Pressure 113/74 114/59 L 114/58 L Pulse Oximetry 96 96 Oxygen Delivery Method Room Air Room Air 05/19/25 08:35 Temperature Pulse Rate 87 Respiratory Rate Blood Pressure 114/69 Pulse Oximetry Oxygen Delivery Method BMI result Body Mass Index 32.8 Labs 05/04/25 12:20 05/04/25 12:20 Medications Medications Current Medications Acetaminophen (Acetaminophen 325 Mg Tablet) 650 mg PO Q6H PRN PRN Reason: Headache/Pain, Scale 1-10 Last Admin: 05/19/25 10:40 Dose: 650 mg Al Hydroxide/Mg Hydroxide (Magnesium Hydrox/Alum Hydrox 30 Ml Oral.Susp) 30 ml PO Q6H PRN PRN Reason: Heartburn/Nausea Albuterol Sulfate (Albuterol Sulfate 90 Mcg 8 Gm Inhaler) 2 puff INHALE Q4H PRN PRN Reason: Shortness of Breath Amlodipine Besylate (Amlodipine Besylate 10 Mg Tablet) 10 mg PO DAILY [facility]; Protocol Last Admin: 05/19/25 08:34 Dose: 10 mg Atorvastatin Calcium (Atorvastatin Calcium 20 Mg Tablet) 20 mg PO BEDTIME [facility] Last Admin: 05/18/25 21:13 Dose: 20 mg Bupropion HCl (Bupropion Hcl Xl 150 Mg Tab.Er.24h) 150 mg PO DAILY [facility] Last Admin: 05/19/25 08:34 Dose: 150 mg Calcium Carbonate (Calcium Carbonate 750 Mg Tab.Chew) 750 mg PO Q6H PRN PRN Reason: Heartburn Clomipramine HCl (Clomipramine Hcl 25 Mg Capsule) 75 mg PO BEDTIME [facility] Last Admin: 05/18/25 21:13 Dose: 75 mg Clonazepam (Clonazepam 1 Mg Tablet) 1 mg PO BID [facility] Last Admin: 05/19/25 08:34 Dose: 1 mg Docusate Sodium (Docusate Sodium 100 Mg Capsule) 100 mg PO BID [facility] Last Admin: 05/19/25 08:34 Dose: 100 mg Hydroxyzine HCl (Hydroxyzine Hcl 50 Mg Tablet) 50 mg PO TID PRN PRN Reason: moderate anxiety/insomnia Last Admin: 05/18/25 14:33 Dose: 50 mg Lamotrigine (Lamotrigine 25 Mg Tablet) 25 mg PO DAILY [facility] Last Admin: 05/19/25 08:34 Dose: 25 mg Magnesium Hydroxide (Milk Of Magnesia 30 Ml Oral.Susp) 30 ml PO DAILY PRN PRN Reason: Constipation Last Admin: 05/18/25 08:28 Dose: 30 ml Melatonin (Melatonin 3 Mg Tablet) 6 mg PO BEDTIME [facility] Last Admin: 05/18/25 21:12 Dose: 6 mg Multivitamins/Vitamin C (Multivitamin Tablet) 1 tab PO DAILY [facility] Last Admin: 05/19/25 08:34 Dose: 1 tab Naltrexone HCl (Naltrexone Hcl 50 Mg Tablet) 50 mg PO DAILY [facility] Last Admin: 05/19/25 08:34 Dose: 50 mg Nicotine (Nicotine 21 Mg Patch.Td24) 21 mg TRANSDERMA DAILY PRN PRN Reason: Pain, Mild (Pain Scale 1-3) Nicotine Polacrilex (Nicotine Polacrilex 2 Mg Gum) 4 mg BUCCAL Q2H PRN PRN Reason: Nicotine Cravings Olanzapine (Olanzapine 10 Mg Tablet) 10 mg PO BEDTIME [facility] Last Admin: 05/18/25 21:13 Dose: 10 mg Polyethylene Glycol (Polyethylene Glycol 3350 17 Gm Powd.Pack) 17 gm PO DAILY PRN PRN Reason: Constipation Last Admin: 05/18/25 11:43 Dose: 17 gm Propranolol HCl (Propranolol Hcl 20 Mg Tablet) 20 mg PO BID [facility]; Protocol Last Admin: 05/19/25 08:35 Dose: 20 mg Trazodone HCl (Trazodone Hcl 50 Mg Tablet) 50 mg PO BEDTIME PRN PRN Reason: Insomnia Last Admin: 05/05/25 20:22 Dose: 50 mg Trazodone HCl (Trazodone Hcl 100 Mg Tablet) 100 mg PO BEDTIME [facility] Last Admin: 05/18/25 21:12 Dose: 100 mg Allergies Allergies Allergy/AdvReac Type Severity Reaction Status Date / Time mirtazapine (MIRTAZAPINE) Allergy Intermediate UNKNOWN Verified 05/04/25 11:34 sulfamethoxazole (From Allergy Unknown RASH Verified 05/04/25 11:34 BACTRIM) trimethoprim (From BACTRIM) Allergy Unknown RASH Verified 05/04/25 11:34 Assessment & Plan Assessment & Plan (1) MDD (major depressive disorder), recurrent episode, severe: Qualifiers: Psychotic features: without psychotic features Qualified Code(s): F33.2 - Major depressive disorder, recurrent severe without psychotic features Status: Acute Code(s): F33.2 - Major depressive disorder, recurrent severe without psychotic features (2) JESSICA (generalized anxiety disorder): Status: Acute Code(s): F41.1 - Generalized anxiety disorder (3) Panic disorder: Status: Acute Code(s): F41.0 - Panic disorder [episodic paroxysmal anxiety] (4) Alcohol abuse: Status: Acute Code(s): F10.10 - Alcohol abuse, uncomplicated (5) HTN (hypertension): Status: Acute Code(s): I10 - Essential (primary) hypertension (6) Sleep apnea: Status: Acute Code(s): G47.30 - Sleep apnea, unspecified (7) Homeless: Status: Acute Code(s): Z59.00 - Homelessness unspecified Plan HPI: Pt is a 44 yo male with hx of MDD, anxiety/panic attacks, JESSICA and alcohol abuse who presents for worsening anxiety and vague SI in face of medication changes, having just been discharged from [facility] yesterday. Patient reports that when he left in January he was doing well for a little while but then got suicidal and went to [facility] where he was started on Wellbutrin. Patient said for 2 months he was doing well on Wellbutrin, feeling more like himself and continued to go to the [facility]. Patient said that despite doing well, suddenly, without any warning he became very anxious and depressed for 1 day wanted to hang himself; he told staff and was admitted [facility] where he was taken off Wellbutrin and instead started on lithium which he said he did not want. Patient remained feeling sad throughout the admission, was discharged this past Monday, went to a friend's, drank a half pt of whiskey after 5 months of sobriety again became suicidal resulting in this admission. Patient reports he has had trouble sleeping for weeks and keeps waking up about 02:00; he just feels tired all day long and wishes he could sleep; no other manic symptoms. No drug use. Formulation/clinical reasoning: Patient seems to do overall well and then for unknown reasons will have 1 day where he gets very dysregulated and suicidal which lands him in the hospital; it seems that these bouts of dysregulated are transient if he could stay out of the hospital for that 1 day, it would resolve on its own. Although patient said he did not like lithium at [facility], he has reported that he was on lithium in the past and he thought it was helpful and was not sure why it was ever discontinued. Patient does not seem to have discrete manic episodes but will review history again. He does have a history of OCD listed (though does not seem to have this) for which he was using Prozac but by patient's own report he seemed to have been doing well on Wellbutrin (plus or minus Lamictal) and would like to restart that now. That said, lithium might be helpful as well. Patient only drank for 1 day so does not need CIWA. Intermittent SI but patient says he feels he will be safe on the unit; Currently no SI. Part of patient's extreme anxiety is that he is now homeless and feels ashamed that his family is angry at him. -reviewed hx and no hx of discreet manic episodes or behaviors. 05/07 Early this morning patient found sitting in his room with CPAP to around his neck; it was not tight and patient was not in the process of trying to hang himself. He said i was so tired...i had not slept...it was a desperate moment...i felt like shit...so many things on my mind, like a non-stop carosel of worry... Patient says he was crying loudly before hand to draw attention to himself and was this was not an attempt but a cry for help. Gummed Tape Press Operator agrees pt does not need 1:1 Discussed history and patient able to identify some of the things that went into his decompensation that resulted in the [facility] admission which included a staff member at the program saying something unkind to him and accusatory which made him very anxious and which he felt was unfair; he said he just thought about it over and over until he became very overwhelmed and then suddenly suicidal. Patient agrees that if he had someone to talk to that he probably could have short circuiting the spiral and rebounded on his own without inpatient admission. Discussed medications at length and patient agrees with continuing Wellbutrin titration since he said it really seemed to help last time he was on it. Discussed lithium again and patient anxious about it saying he got palpitations last time he was tried -prozac worked for about 10 years and then stopped working which is why he was switched to Wellbutrin -after [facility], when started on Wellbutrin was also on Lamictal 100mg (has been on 200mg BID) 05/08 patient tolerating increased Wellbutrin; continue with this plan. Patient would like program 05/09 very anxious; agrees to starting Trileptal after reviewing risks/side effects. It is possible that patient is anxious with increased Wellbutrin over he has tolerated Wellbutrin 300 mg in the past. Will monitor and consider lowering back to 150mg. Patient agrees to start going to groups 05/10 Patient remains exceedingly anxious, asking marine underwriter same question multiple times such as if he runs out of clonazepam will he have a seizure (patient is on 1 mg b.i.d.) and despite marine underwriter's reassurance, he asks again. Patient apologizes every time but acknowledges he can not stop though intrusive worry. Discussed medication options, reviewing risks/side effects of TCAs and patient agrees to start on clomipramine given that he has numerous trials on SSRI/SNRI.(will monitor for dry mouth, constipation, urinary retention, orthostatic hypotension, tachycardia etc.) -will lower Wellbutrin to 150 mg; possibly titrated to quickly exacerbating some anxiety 05/11 Patient reports feeling a little better today. And wonders if perhaps it is because Wellbutrin was lowered. So far tolerating clomipramine. Patient continuing to ask repeated questions about worries despite having been given answers and educated on various topics. Talked about therapeutic approach and coping skills and patient will start to categorize his worries into realistic worries verse excessive worries and if he wants to talk about an excessive worry, he will bringing up as such and asked how to cope with it. Discussed substance abuse and patient has stayed mostly sober for year, only a few relapses limited to only 1 or 2 days at most -DC need Trileptal since working with clomipramine instead; will continue Lamictal for now; he has been on this medication for years and it is possible it is helpful and possible it is not effective 05/12 pt reports doing a little better today; still very anxious but using coping skills to challenge excessive worries. Discussed medications and pt agrees to continue with clomipramine and wellbutrin, titrating as needed. Discussed aftercare and pt wants a program 05/13 Patient continues to do better. Patient reports that both depression and anxiety are improved. He still has anxiety but is getting better and better at noticing it and employing coping skills. Patient feels he is benefitting from groups and also feels that the medications are helpful. Discussed medication regimen and patient agrees with increasing clomipramine. 05/14 patient continues to improve; continue current treatment plan; some respiratory symptoms however negative for RSV/COVID/flu 05/16 Patient continues to do better working on coping with anxiety; feels that medications have been helping and agrees to titration of clomipramine (will increase to 75 mg on 05/17) Patient is stable on current medication regimen Patient is in good behavioral and impulse control and engaged in treatment; he is appropriate with both peers and staff. Patient is safe. 05/17: Active on unit. Patient reports feeling alright today; pt stated, I'm having a little anxiety and depression ; he reports sleeping well last night. denies SI/HI/VH/AH. Continue tx plan. 05/19/25: Denies SI,HI,AH,VH Preparing for discharge to [facility] on 05/20. Anxious, however, has been to [facility] in the past and knows the structure will be helpful for him. This is an improved situation to current living situation which he discussed. Discussed concerns about medications he brought into the hospital and if [facility] will allow him to continue Klonopin. Antibiotics initiated for ear ache/infection today with hospitalist team 05/18: continue tx plan. Plan: CV Q 15 minute checks CPAP q.h.s. Increase to clomipramine 75 mg q.h.s. Continue Wellbutrin XL 150 mg daily Continue hydroxyzine 50 mg t.i.d. prn continue Zyprexa 10 mg q.h.s. continue Lamictal 25 mg daily; Restarted on Lamictal at [facility] after having been off for couple of weeks (used to be on 06/17 5 mg) Continue propranolol 20 mg b.i.d. continue amlodipine 10 mg daily Continue atorvastatin 20 mg q.h.s. Continue trazodone 100 mg q.h.s. Continue clonazepam 1 mg b.i.d. (patient has been on this dose for about 15 years) Consider: Consider clonidine 0.1 mg daily p.r.n. Consider Zyprexa 2.5 mg q.4 AH p.r.n. Patient used to be on: Prozac 80 mg daily for OCD Metformin 500 mg daily for metabolic syndrome since on Zyprexa Naltrexone 50 mg daily for alcohol cravings; Reason for continued inpatient stay Substantial Risk for: stable for discharge Time Spent With Patient Time: Total time managing care of this patient today ____ minutes.
--- NOTE | 2025-05-19 15:27 | P.PNIM_ITS ---
Subjective Subjective Date of Service: 05/19/25 Interval History: Patient is seen for reports of left ear pain. Patient reports that his ear has been hurting him for 2 days. Denies any decrease in hearing. Denies any discharge from his ear. Patient reports a history of ear infections. Denies any fever, no tachycardia, no headaches. No nasal symptoms, recent viral panel negative. No cough. Review of Systems Patient has no acute medical complaints at this time All other systems are reviewed and are negative Physical Exam 2 Exam: Exam: Alert and oriented X3, calm and cooperative. Answers questions. Neuro: CN II-X11 intact. No focal neuro deficits ENT: Hearing intact, MMM, right ear canal mildly red, tympanic membrane injected. Positive pain with palpation to tragus and pinna. Dear within normal limits. No effusion Cardiac: S1 S2 RRR, No ectopy Pulmonary: lungs clear to auscultation, No increased WOB. Abdominal: BS active in all 4 quadrants, no guarding or tenderness MSK: Strength 5/5 upper and lower extremities : Deferred Extremities: No edema in lower extremities Psych: Mood stable, Quiet and cooperative. Skin: Warm and dry, Intact Vital Signs: Vital Signs: Last Vital Signs Temp 98.5 F 05/19/25 08:00 Pulse 87 05/19/25 08:35 Resp 18 05/19/25 08:00 BP 114/69 05/19/25 08:35 Pulse Ox 96 05/19/25 08:00 O2 Del Method Room Air 05/19/25 08:00 BMI result Body Mass Index 32.8 Objective Data Active Medications Acetaminophen (Acetaminophen 325 Mg Tablet) 650 mg PO Q6H PRN PRN Reason: Headache/Pain, Scale 1-10 Last Admin: 05/19/25 10:40 Dose: 650 mg Documented By: MARIO Al Hydroxide/Mg Hydroxide (Magnesium Hydrox/Alum Hydrox 30 Ml Oral.Susp) 30 ml PO Q6H PRN PRN Reason: Heartburn/Nausea Albuterol Sulfate (Albuterol Sulfate 90 Mcg 8 Gm Inhaler) 2 puff INHALE Q4H PRN PRN Reason: Shortness of Breath Amlodipine Besylate (Amlodipine Besylate 10 Mg Tablet) 10 mg PO DAILY [facility]; Protocol Last Admin: 05/19/25 08:34 Dose: 10 mg Documented By: MARIO Atorvastatin Calcium (Atorvastatin Calcium 20 Mg Tablet) 20 mg PO BEDTIME [facility] Last Admin: 05/18/25 21:13 Dose: 20 mg Documented By: MARLEY Bupropion HCl (Bupropion Hcl Xl 150 Mg Tab.Er.24h) 150 mg PO DAILY [facility] Last Admin: 05/19/25 08:34 Dose: 150 mg Documented By: MARIO Calcium Carbonate (Calcium Carbonate 750 Mg Tab.Chew) 750 mg PO Q6H PRN PRN Reason: Heartburn Clomipramine HCl (Clomipramine Hcl 25 Mg Capsule) 75 mg PO BEDTIME [facility] Last Admin: 05/18/25 21:13 Dose: 75 mg Documented By: MARLEY Clonazepam (Clonazepam 1 Mg Tablet) 1 mg PO BID [facility] Last Admin: 05/19/25 08:34 Dose: 1 mg Documented By: MARIO Docusate Sodium (Docusate Sodium 100 Mg Capsule) 100 mg PO BID [facility] Last Admin: 05/19/25 08:34 Dose: 100 mg Documented By: MARIO Hydroxyzine HCl (Hydroxyzine Hcl 50 Mg Tablet) 50 mg PO TID PRN PRN Reason: moderate anxiety/insomnia Last Admin: 05/18/25 14:33 Dose: 50 mg Documented By: MARIO Lamotrigine (Lamotrigine 25 Mg Tablet) 25 mg PO DAILY [facility] Last Admin: 05/19/25 08:34 Dose: 25 mg Documented By: MARIO Magnesium Hydroxide (Milk Of Magnesia 30 Ml Oral.Susp) 30 ml PO DAILY PRN PRN Reason: Constipation Last Admin: 05/18/25 08:28 Dose: 30 ml Documented By: MARIO Melatonin (Melatonin 3 Mg Tablet) 6 mg PO BEDTIME [facility] Last Admin: 05/18/25 21:12 Dose: 6 mg Documented By: MARLEY Multivitamins/Vitamin C (Multivitamin Tablet) 1 tab PO DAILY [facility] Last Admin: 05/19/25 08:34 Dose: 1 tab Documented By: MARIO Naltrexone HCl (Naltrexone Hcl 50 Mg Tablet) 50 mg PO DAILY [facility] Last Admin: 05/19/25 08:34 Dose: 50 mg Documented By: MARIO Nicotine (Nicotine 21 Mg Patch.Td24) 21 mg TRANSDERMA DAILY PRN PRN Reason: Pain, Mild (Pain Scale 1-3) Nicotine Polacrilex (Nicotine Polacrilex 2 Mg Gum) 4 mg BUCCAL Q2H PRN PRN Reason: Nicotine Cravings Olanzapine (Olanzapine 10 Mg Tablet) 10 mg PO BEDTIME [facility] Last Admin: 05/18/25 21:13 Dose: 10 mg Documented By: MARLEY Polyethylene Glycol (Polyethylene Glycol 3350 17 Gm Powd.Pack) 17 gm PO DAILY PRN PRN Reason: Constipation Last Admin: 05/18/25 11:43 Dose: 17 gm Documented By: MARIO Propranolol HCl (Propranolol Hcl 20 Mg Tablet) 20 mg PO BID [facility]; Protocol Last Admin: 05/19/25 08:35 Dose: 20 mg Documented By: MARIO Trazodone HCl (Trazodone Hcl 50 Mg Tablet) 50 mg PO BEDTIME PRN PRN Reason: Insomnia Last Admin: 05/05/25 20:22 Dose: 50 mg Documented By: BENJAMIN Trazodone HCl (Trazodone Hcl 100 Mg Tablet) 100 mg PO BEDTIME [facility] Last Admin: 05/18/25 21:12 Dose: 100 mg Documented By: MARLEY Labs 05/04/25 12:20 05/04/25 12:20 Assessment and Plan (1) Left otitis media: Status: Acute Plan 44-year-old male with past medical history listed below presented to the emergency room with increased depression and suicidal ideation, recent relapse from EtOH use after having been sober for 5 months. Patient is admitted for psychiatric stabilization. Bipolar 1 disorder/MDD/panic disorder/adjustment disorder/EtOH use disorder/OCD Treatment per psychiatric team Not in acute withdrawal at time of examination. Continue thiamine, folic acid and multivitamin Left otitis media Augmentin 875 2 times a day for 7 days. Follow up with primary care if no improvement. GERD Tums as needed HLD/HTN Continue propranolol, Norvasc, and Lipitor. Sleep apnea Home CPAP machine Thank you for allowing me to participate in the care of this patient. Will follow with you, please notify medical provider with any changes in condition or concerns. Quality Stroke Does the patient have a stroke diagnosis?: No VTE Prior VTE?: No VTE Risk Level:: Medical - low VTE Device Contraindication: Treatment Not Indicated VTE Drug Contraindication: Treatment Not Indicated
[2025-05-19 20:17] VITALS: BP 121/64; PULSE 83
[2025-05-20 08:00] VITALS: BP 123/59; PULSE 96; RESP 18; TEMP 36.7; O2SAT 97
[2025-05-20] MEDS: buPROPion HCl XL 150 MG TAB.ER.24H PO (08:54)
--- NOTE | 2025-05-20 11:45 | P.DS_ITS ---
DS: Providers Provider Date of admission: 05/05/25 13:56 Date of discharge: 05/20/25 Primary care physician: Quan Baker MD Admitting clinician: Ken Bonilla Attending physician on admission: Ken Bonilla Consults: 05/19/25 11:06 Consult to Hospitalist Routine Comment: Consulting Provider: [facility] Reason For Exam: Left Ear Pain with nsg report of warm to touch Attending physician on discharge: Brandyn Simon Discharging clinician: Zara Tejeda DS: Diagnosis Discharge Diagnosis (1) MDD (major depressive disorder), recurrent episode, severe: Status: Acute (2) JESSICA (generalized anxiety disorder): Status: Acute (3) Panic disorder: Status: Acute (4) Alcohol abuse: Status: Acute (5) HTN (hypertension): Status: Acute (6) Sleep apnea: Status: Acute (7) Homeless: Status: Acute DS: Medications Discharge Medications Home Medications: Previous Rx's ?Medication ?Instructions ?Recorded albuterol sulfate 90 mcg/actuation 2 puff inhalation Q 4H PRN 05/16/25 aerosol inhaler Shortness Of Breath 30 days #6.7 grams amlodipine 10 mg tablet 10 mg PO DAILY blood pressur e 30 05/16/25 days #30 tabs atorvastatin 20 mg tablet 20 mg PO BEDTIME cholesterol 30 05/16/25 days #30 tabs bupropion HCl 150 mg 24 hr tablet, 150 mg PO DAILY 30 days #30 tabs 05/16/25 extended release clomipramine 75 mg capsule 75 mg PO BEDTIME 30 days #3 0 caps 05/16/25 clonazepam 1 mg tablet 1 mg PO BID Anxiety 30 days #60 05/16/25 tabs docusate sodium 100 mg capsule 100 mg PO BID 30 days # 60 caps 05/16/25 hydroxyzine pamoate 50 mg capsule 50 mg PO TID PRN mil d Anxiety 30 05/16/25 days #60 caps melatonin 5 mg tablet 5 mg PO BEDTIME 30 days #30 tabs 05/16/25 multivitamin (Daily-Ninoska tablet) 1 tab PO DAILY 30 day s #30 tabs 05/16/25 naltrexone 50 mg tablet 50 mg PO DAILY 30 days #30 t abs 05/16/25 olanzapine 10 mg tablet 10 mg PO BEDTIME 30 days #30 tabs 05/16/25 polyethylene glycol 3350 17 gram 17 g PO DAILY PRN Con stipation 30 05/16/25 oral powder packet days #30 ea propranolol 20 mg tablet 20 mg PO BID 30 days #60 tab s 05/16/25 trazodone 50 mg tablet 50 mg PO BEDTIME PRN insomni a 30 05/16/25 days #30 tabs amoxicillin 875 mg-potassium 1 tab PO BID #14 tabs clavulanate 125 mg tablet Mental Status Exam Mental Status Exam Patient Appearance: Appropriate Patient Orientation: Person, Time and Situation Level of Consciousness: Alert Patient Behavior: Talkative and Good Eye Contact Mood Description: Anxious and Apprehensive Affect Description: Anxious and Apprehensive Patient Cognition Impaired: No Ability to Follow Directions: Good Speech Pattern: Spontaneous Speech Memory Description: Intact Hallucinations: None Delusions: Not Present Thought Process: Goal Oriented Thought Content: positive for Goal Oriented Depressive Symptoms: Increased Anxiety and Thoughts of /Suicide (denies) Judgement: Good Data Data Completed and Pending Completed studies during hospitalization [Text1]: 05/14/25 12:40 Respiratory Panel Rodriguez See Note Adenovirus (Rapid PCR) Not Detected B.pert (TEM-PCR) Not Detected B.parapertussis DNA PCR Not Detected C. pneumoniae DNA (PCR) Not Detected Coronavirus OC43 (PCR) Not Detected Coronavirus HKU1 (PCR) Not Detected Coronavirus 229E (PCR) Not Detected Coronavirus NL63 (PCR) Not Detected Human Metapneumovir PCR Not Detected Influenza A (RT-PCR) Not Detected Influenza A (H1) PCR Not Detected Influ A (H1/09) PCR Not Detected Influenza A (H3) PCR Not Detected Influenza B (RT-PCR) Not Detected M. pneumoniae (PCR) Not Detected Parainfluenza 1 (PCR) Not Detected Parainfluenza 2 (PCR) Not Detected Parainfluenza 3 (PCR) Not Detected Parainfluenza 4 (PCR) Not Detected RSV (PCR) Not Detected Entero/Rhino (PCR) Not Detected SARS-CoV-2 RNA (RT-PCR) Not Detected DS: Summary Hospital Course Hospital Course: Pt is a 44 yo male with hx of MDD, anxiety/panic attacks, JESSICA and alcohol abuse who presents for worsening anxiety and vague SI in face of medication changes, having just been discharged from [facility] yesterday. Patient reports that when he left in January he was doing well for a little while but then got suicidal and went to [facility] where he was started on Wellbutrin. Patient said for 2 months he was doing well on Wellbutrin, feeling more like himself and continued to go to the [facility]. Patient said that despite doing well, suddenly, without any warning he became very anxious and depressed for 1 day wanted to hang himself; he told staff and was admitted to [place] where he was taken off Wellbutrin and instead started on lithium which he said he did not want. Patient remained feeling sad throughout the admission, was discharged this past Monday, went to a friend's, drank a half pt of whiskey after 5 months of sobriety again became suicidal resulting in this admission. Patient reports he has had trouble sleeping for weeks and keeps waking up about 02:00; he just feels tired all day long and wishes he could sleep; no other manic symptoms. No drug use. Formulation/clinical reasoning: Patient seems to do overall well and then for unknown reasons will have 1 day where he gets very dysregulated and suicidal which lands him in the hospital; it seems that these bouts of dysregulated are transient if he could stay out of the hospital for that 1 day, it would resolve on its own. Although patient said he did not like lithium at [facility], he has reported that he was on lithium in the past and he thought it was helpful and was not sure why it was ever discontinued. Patient does not seem to have discrete manic episodes but will review history again. He does have a history of OCD listed (though does not seem to have this) for which he was using Prozac but by patient's own report he seemed to have been doing well on Wellbutrin (plus or minus Lamictal) and would like to restart that now. That said, lithium might be helpful as well. Patient only drank for 1 day so does not need CIWA. Intermittent SI but patient says he feels he will be safe on the unit; Currently no SI. Part of patient's extreme anxiety is that he is now homeless and feels ashamed that his family is angry at him. -reviewed hx and no hx of discreet manic episodes or behaviors. 05/07 Early this morning patient found sitting in his room with CPAP to around his neck; it was not tight and patient was not in the process of trying to hang himself. He said i was so tired...i had not slept...it was a desperate moment...i felt like shit...so many things on my mind, like a non-stop carosel of worry... Patient says he was crying loudly before hand to draw attention to himself and was this was not an attempt but a cry for help. Rooming House Inspector agrees pt does not need 1:1 Discussed history and patient able to identify some of the things that went into his decompensation that resulted in the [place] admission which included a staff member at the program saying something unkind to him and accusatory which made him very anxious and which he felt was unfair; he said he just thought about it over and over until he became very overwhelmed and then suddenly suicidal. Patient agrees that if he had someone to talk to that he probably could have short circuiting the spiral and rebounded on his own without inpatient admission. Discussed medications at length and patient agrees with continuing Wellbutrin titration since he said it really seemed to help last time he was on it. Discussed lithium again and patient anxious about it saying he got palpitations last time he was tried -prozac worked for about 10 years and then stopped working which is why he was switched to Wellbutrin -after [facility], when started on Wellbutrin was also on Lamictal 100mg (has been on 200mg BID) 05/08 patient tolerating increased Wellbutrin; continue with this plan. Patient would like program 05/09 very anxious; agrees to starting Trileptal after reviewing risks/side effects. It is possible that patient is anxious with increased Wellbutrin over he has tolerated Wellbutrin 300 mg in the past. Will monitor and consider lowering back to 150mg. Patient agrees to start going to groups 05/10 Patient remains exceedingly anxious, asking technical writer and editor same question multiple times such as if he runs out of clonazepam will he have a seizure (patient is on 1 mg b.i.d.) and despite technical writer and editor's reassurance, he asks again. Patient apologizes every time but acknowledges he can not stop though intrusive worry. Discussed medication options, reviewing risks/side effects of TCAs and patient agrees to start on clomipramine given that he has numerous trials on SSRI/SNRI.(will monitor for dry mouth, constipation, urinary retention, orthostatic hypotension, tachycardia etc.) -will lower Wellbutrin to 150 mg; possibly titrated to quickly exacerbating some anxiety 05/11 Patient reports feeling a little better today. And wonders if perhaps it is because Wellbutrin was lowered. So far tolerating clomipramine. Patient continuing to ask repeated questions about worries despite having been given answers and educated on various topics. Talked about therapeutic approach and coping skills and patient will start to categorize his worries into realistic worries verse excessive worries and if he wants to talk about an excessive worry, he will bringing up as such and asked how to cope with it. Discussed substance abuse and patient has stayed mostly sober for year, only a few relapses limited to only 1 or 2 days at most -DC need Trileptal since working with clomipramine instead; will continue Lamictal for now; he has been on this medication for years and it is possible it is helpful and possible it is not effective 05/12 pt reports doing a little better today; still very anxious but using coping skills to challenge excessive worries. Discussed medications and pt agrees to continue with clomipramine and wellbutrin, titrating as needed. Discussed aftercare and pt wants a program 05/13 Patient continues to do better. Patient reports that both depression and anxiety are improved. He still has anxiety but is getting better and better at noticing it and employing coping skills. Patient feels he is benefitting from groups and also feels that the medications are helpful. Discussed medication regimen and patient agrees with increasing clomipramine. 05/14 patient continues to improve; continue current treatment plan; some respiratory symptoms however negative for RSV/COVID/flu 05/16 Patient continues to do better working on coping with anxiety; feels that medications have been helping and agrees to titration of clomipramine (will increase to 75 mg on 05/17). Pt was accepted to the [facility] and was able to admit on 05/20/25. Patient is stable on current medication regimen Patient is in good behavioral and impulse control and engaged in treatment; he is appropriate with both peers and staff. Patient is safe. Plan: CV Q 15 minute checks CPAP q.h.s. Increase to clomipramine 75 mg q.h.s. Continue W Time Spent with Patient Time attestation: Total time managing care of this patient today ____ minutes. Discharge Plan Discharge Anticipated Discharge Date/Time: 05/20/25 11:00 Patient Disposition: Xfer Inpatient Rehab Fac Discharge Diagnosis: Recurrent Major Depression OCD JESSICA Alcohol Use Disorder HANS HTN Homeless Referrals: [facility] [Other] - 1 Week Referral Note: Referral for substance use treatment Quan Baker MD [Primary Care Provider, Medical] - 1 Week Referral Note: Pt informed that he needs to make a follow up appointment with his PCP to be seen in 1 week. Discharge Medications: New bupropion HCl 150 mg Tablet Extended Release 24 Hr 150 mg PO DAILY 30 Days Qty: 30 1RF clomipramine 75 mg capsule 75 mg PO BEDTIME 30 Days Qty: 30 1RF naltrexone 50 mg Tablet 50 mg PO DAILY 30 Days Qty: 30 1RF docusate sodium 100 mg Capsule 100 mg PO BID 30 Days Qty: 60 1RF Rx Instructions: hold for loose stool polyethylene glycol 3350 17 gram Powder In Packet 17 g PO DAILY PRN (Reason: Constipation) 30 Days Qty: 30 1RF multivitamin [Daily-Ninoska] Tablet 1 tab PO DAILY 30 Days Qty: 30 1RF amoxicillin-pot clavulanate 875-125 mg Tablet 1 tab PO BID Qty: 14 0RF Continued atorvastatin 20 mg tablet 20 mg PO BEDTIME 30 Days Qty: 30 1RF trazodone 50 mg tablet 50 mg PO BEDTIME PRN (Reason: insomnia) 30 Days Qty: 30 1RF hydroxyzine pamoate 50 mg Capsule 50 mg PO TID PRN (Reason: mild Anxiety) 30 Days Qty: 60 1RF olanzapine 10 mg tablet 10 mg PO BEDTIME 30 Days Qty: 30 1RF amlodipine 10 mg tablet 10 mg PO DAILY 30 Days Qty: 30 1RF albuterol sulfate 90 mcg/actuation Hfa Aerosol Inhaler 2 puff INHALATION Q4H PRN (Reason: Shortness Of Breath) 30 Days Qty: 6.7 1RF propranolol 20 mg tablet 20 mg PO BID 30 Days Qty: 60 1RF melatonin 5 mg tablet 5 mg PO BEDTIME 30 Days Qty: 30 1RF Changed clonazepam 1 mg tablet 1 mg PO BID 30 Days Qty: 60 1RF Discontinued lamotrigine 25 mg tablet 25 mg PO DAILY Patient Comments: Pt reports he is only on 25 mg fluoxetine 10 mg capsule 10 mg PO DAILY Discharge Orders: Discharge Order (Routine); Ordered 05/20/25 Ordered By: Zara Tejeda Diet: Advance to usual diet Activity on Discharge: As tolerated Stand Alone Forms: Patient Portal Discharge page, Community Support Print Language: Armenian Care Plan Goals: Maintain mood and safe behaviors Take medications as prescribed Continue to pursue sobriety Practice coping skills Work with [facility] team on recovery Health Concerns: Mood and behavioral stability Pursuit of sobriety Plan of Treatment: Take meds as prescribed Work with [facility] team on building sobriety Follow up with PCP, OP Providers Assessment: Denies SI,HI,AH,VH. Pt is fully oriented. Anxious, but agrees with plan to attend [facility] Participating in treatment planning. Pt has improved insight and judgment and wants to continue treatment. Pt is not in imminent risk of harm to self or others and has a safety plan that includes presenting to the closest ER or calling 911 if feeling unsafe. Pt has been observed closely by nursing and unit staff throughout admission. Pt has not engaged in any behaviors that suggest dangerousness to self or others and has demonstrated appropriate behaviors and impulse control. Discharge Date/Time: 05/20/25 12:36
== END 2025-05-20 12:36 | DRG 885 ==
LOC: HO.ED 05-05 12:26 → HO.PM5 05-05 13:57
PROVIDERS: Physician Assistant; Registered Nurse Emergency; Admitting Provider Clinical Nurse Specialist Psychiatric/Mental Health, Adult; Emergency Provider Emergency Medicine; PCP Internal Medicine; Visit Provider Psychiatry & Neurology Psychiatry
DX: F33.2 Major depressive disorder, recurrent severe without psychotic features (principal); Z59.02 Unsheltered homelessness; Y90.6 Blood alcohol level of 120-199 mg/100 ml; F41.1 Generalized anxiety disorder; F41.0 Panic disorder [episodic paroxysmal anxiety]; E78.5 Hyperlipidemia, unspecified; F42.9 Obsessive-compulsive disorder, unspecified; F10.10 Alcohol abuse, uncomplicated; I10 Essential (primary) hypertension; G47.30 Sleep apnea, unspecified; F17.210 Nicotine dependence, cigarettes, uncomplicated; Z71.6 Tobacco abuse counseling; Z20.822 Contact with and (suspected) exposure to COVID-19; Z79.899 Other long term (current) drug therapy
CPT/HCPCS: 36415; 80048; 80061; 80076; 80143; 80179; 80307; 81003; 82607; 82746; 83036; 83735; 84439; 84443; 85025; 87633; 87637; 93005; 99285; S9485

== ENCOUNTER → 2025-05-05 09:01 | Outpatient (BNV) | payer MEDICARE, MEDICAID, SELFPAY | PROVIDERS: Emergency Provider Emergency Medicine; PCP Internal Medicine; Visit Provider Internal Medicine Cardiovascular Disease | DX: I45.10 Unspecified right bundle-branch block (principal) | CPT/HCPCS: 93010 ==

== ENCOUNTER → 2025-05-05 13:56 | Outpatient (BNV) | payer MEDICARE, MEDICAID, SELFPAY | PROVIDERS: Admitting Provider Clinical Nurse Specialist Psychiatric/Mental Health, Adult; Emergency Provider Emergency Medicine; PCP Internal Medicine; Visit Provider Psychiatry & Neurology Psychiatry | DX: F33.2 Major depressive disorder, recurrent severe without psychotic features (principal); F41.1 Generalized anxiety disorder; F41.0 Panic disorder [episodic paroxysmal anxiety]; F42.9 Obsessive-compulsive disorder, unspecified; F10.10 Alcohol abuse, uncomplicated; G47.30 Sleep apnea, unspecified; Z59.00 Homelessness unspecified | CPT/HCPCS: 90792 ==

== ENCOUNTER → 2025-05-05 13:56 | Outpatient (BNV) | payer MEDICARE, MEDICAID, SELFPAY | PROVIDERS: Admitting Provider Clinical Nurse Specialist Psychiatric/Mental Health, Adult; Emergency Provider Emergency Medicine; PCP Internal Medicine; Visit Provider Nurse Practitioner Family | DX: I10 Essential (primary) hypertension (principal) | CPT/HCPCS: 99221 ==